=== PATIENT | male | born 1965 | race Caucasian/White ===

== ENCOUNTER → 2016-11-16 | Outpatient (REF) | payer OTHER ==
[~2016-11-16] MED LIST: /GLIP10TAB PO; /HCTZ25TA PO; ACET50TA PO; ALBU17IN INH; AMOX875T PO; ASPI81TA51 PO; CLIN150C PO; CRES5TAB PO; DOCU10ELUD PO; GABA100C PO; GLUC500T PO; GLUCTAB2 PO; INSULANT SC; ISOS10TA2 PO; LANTINJ4 SC; LIPI20TA PO; LISI-542 PO; LISI5TAB PO; LOPR50TA PO; NEXI40GR PO; PERC7.5T12 PO; PERI12LIQ MT; PROAAER IN; REGL10TA6 PO
[2016-11-16 18:03] LABS: MEAN CORPUSCULAR HEMOGLOBIN 29.2 pg (27.0-33.0); MEAN CORPUSCULAR HGB CONC 35.7 g/dl (32.0-36.5); MEAN CORPUSCULAR VOLUME 81.7 fl (80.0-96.0); RED CELL DISTRIBUTION WIDTH 11.7 % (11.5-14.5); WHITE BLOOD COUNT 7.9 K/mm3 (4.0-10.0)
[2016-11-16 18:39] LABS: CHOLESTEROL LEVEL 202 MG/DL (<200); TRIGLYCERIDES LEVEL 562 MG/DL (<150)
== END | disposition home or self-care (01) ==
LOC: M SFHCCLAY 13:28
PROVIDERS: ATTEND Nurse Practitioner Family
DX: E10.65 Type 1 diabetes mellitus with hyperglycemia (principal); M54.9 Dorsalgia, unspecified; E78.5 Hyperlipidemia, unspecified; E55.9 Vitamin D deficiency, unspecified

== ENCOUNTER 2016-11-22 22:21 | Inpatient (IN) | payer OTHER ==
[~2016-11-22] VITALS: Ht 170.2 cm; Wt 70.0 kg
[2016-11-23 01:23] LABS: BASO # 0.1 K/mm3 (0.0-0.2); BASO % 0.8 % (0.0-1.0); EOS # 0.3 K/mm3 (0.0-0.50); LARGE UNSTAINED CELL # 0.2 K/mm3 (0.0-0.4); LARGE UNSTAINED CELL % 2.4 % (0.0-4.0); LYMPH # 2.7 K/mm3 (1.5-4.5); LYMPH % 30.8 % (24.0-44.0); MEAN CORPUSCULAR HEMOGLOBIN 28.1 pg (27.0-33.0); MEAN CORPUSCULAR HGB CONC 34.5 g/dl (32.0-36.5); MEAN CORPUSCULAR VOLUME 81.6 fl (80.0-96.0); MONO # 0.5 K/mm3 (0.0-0.8); MONO % 5.8 % (0.0-5.0); NEUTROPHILS % 57.2 % (36.0-66.0); PLATELET COUNT, AUTOMATED 209 k/mm3 (150-450); RED CELL DISTRIBUTION WIDTH 11.7 % (11.5-14.5); WHITE BLOOD COUNT 8.8 K/mm3 (4.0-10.0)
[2016-11-23 01:25] LABS: VENOUS BASE EXCESS 0.1 (-2.0-2.0); VENOUS O2 SATURATION 77.7 % (60.0-80.0); VENOUS PARTIAL PRESSURE CO2 39.2 mmHg (38.0-50.0); VENOUS PARTIAL PRESSURE O2 39.1 mmHg (30.0-50.0); VENOUS STANDARD HCO3 24.1 MEQ/L; VENOUS TOTAL CO2 25.7 MEQ/L (24.0-28.0)
[2016-11-23] MEDS ORDERED: HumuLIN R (REGULAR) INSULIN (NovoLIN R) **100U/ML** PER UNIT As Ordered ONE (01:29)
[2016-11-23] MEDS ORDERED: ONDANSETRON 4MG/2ML VIAL (J2405) As Ordered ONE (01:29)
[2016-11-23] MEDS ORDERED: MORPHINE 4 MG/ML 1ML SYRINGE As Ordered ONE ×2 (01:30→02:56)
[2016-11-23 01:36] LABS: ALBUMIN 3.5 GM/DL (3.2-5.2); ALBUMIN/GLOBULIN RATIO 0.71 (1.00-1.93); ALKALINE PHOSPHATASE 79 U/L (45-117); ALT/SGPT 32 U/L (12-78); AMYLASE 130 U/L (25-115); ANION GAP 9 MEQ/L (8-16); AST/SGOT 14 U/L (15-37); BILIRUBIN,DIRECT < 0.1 MG/DL (0.0-0.2); BILIRUBIN,TOTAL 0.3 MG/DL (0.2-1.0); BLOOD UREA NITROGEN 14 MG/DL (7-18); CALCIUM LEVEL 8.9 MG/DL (8.5-10.1); CARBON DIOXIDE LEVEL 26 MEQ/L (21-32); CHLORIDE LEVEL 98 MEQ/L (98-107); CREATININE FOR GFR 1.23 MG/DL (0.70-1.30); GLOMERULAR FILTRATION RATE > 60.0 (>56); SODIUM LEVEL 133 MEQ/L (136-145); TOTAL PROTEIN 8.4 GM/DL (6.4-8.2)
[2016-11-23 01:39] LABS: GLUCOSE, FASTING 456 MG/DL (70-105)
[2016-11-23 01:51] LABS: OSMOLALITY SERUM 306 MOSM/KG (275-295)
[2016-11-23] MEDS ORDERED: ISOVUE-370 76% 100ML VIAL (Q9967) As Ordered ONE (02:10)
--- NOTE | 2016-11-23 03:10 | REPUSA ---
CLINICAL HISTORY: Abdominal pain. TECHNIQUE: Multiple axial, sagittal and coronal CT images were obtained through the abdomen and pelvi s after administration of intravenous contrast material. COMMENTS: Fluid-filled distended stomach. The liver is mildly enlarged with decreased attenuation without mass or defect. There is no intra or extrahepatic biliary ductal dilatation. The spleen is normal. The gallbladder is surgically absent. T he pancreas is of normal contour and attenuation characteristics. There is no evidence of adrenal mas s. Both kidneys demonstrate prompt and equal nephrograms. The kidneys are normal in size, shape and conf iguration. There is no evidence of renal or ureteral mass. No renal or ureteral calculi are identifie d. There is no hydroureter or hydronephrosis. No evidence for appendicitis. There is no bowel wall thickening. No evidence for small or large sophia l obstruction. There is no evidence of abdominal ascites or lymphadenopathy. There is no evidence of intrinsic or extrinsic bladder mass. There is no pelvic ascites or lymphadeno angus. Distended urinary bladder. Images of the lung bases show no evidence of pleural or parenchymal mass. There are no pleural effusi ons. The bony structures are free of lytic or blastic lesions. IMPRESSION: Fluid filled distended stomach suggestive of gastroparesis. Distended urinary bladder suggestive of urinary retention. Findings were not present on the prior exam on 09/17/2016. Thank you for your kind referral of this patient.
[2016-11-23] MEDS: NS 1,000 ML IV SCH ×2 (04:15→21:47)
[2016-11-23] MEDS ORDERED: ONDANSETRON 4MG/2ML VIAL (J2405) IV PRN (04:15)
[2016-11-23] MEDS ORDERED: DEXTROSE 50% 50 ML SYRINGE IV PRN (04:30)
[2016-11-23] MEDS ORDERED: GLUCOSE 4 GM CHEW TABLET PO PRN (04:30)
[2016-11-23] MEDS ORDERED: GLUCAGON FOR INJ 1 MG VIAL (J1610) SC PRN (04:30)
[2016-11-23] MEDS ORDERED: SODIUM CHLORIDE 0.9% 1000 ML IV ONE (04:45)
[2016-11-23] MEDS ORDERED: GABA600T PO (04:56)
[2016-11-23] MEDS ORDERED: INSULANT SC (04:56)
[2016-11-23] MEDS ORDERED: GEMF600T PO (04:56)
[2016-11-23] MEDS ORDERED: OMEP40CA2 PO (04:56)
[2016-11-23] MEDS ORDERED: TRAM50TA2 PO (04:56)
[2016-11-23] MEDS ORDERED: ASPI81TA7 PO (04:56)
[2016-11-23] MEDS ORDERED: LISI10TA4 PO (04:56)
[2016-11-23] MEDS: HumaLOG INSULIN (NovoLOG) PER UNIT SC SCH ×3 (06:00→17:29)
[2016-11-23 06:26] LABS: TRIGLYCERIDES LEVEL 592 MG/DL (<150)
[2016-11-23] MEDS ORDERED: MORPHINE 2 MG/ML 1ML SYRINGE As Ordered ONE ×2 (07:09→09:21)
[2016-11-23] MEDS ORDERED: ALBUTEROL 90 MCG/ACT 8GM HFA INHALER INH PRN (07:45)
--- NOTE | 2016-11-23 07:51 | HPE ---
DATE OF ADMISSION: 11/23/2015 This is a patient of Tatyana Hooper NP at the [facility]. Chief complaint is not feeling well. SUMMARY OF PRESENTATION: This is a 51-year-old who has not been feeling well for 3 days. He developed sharp abdominal pain, nausea and vomiting 3 days ago. Pain originated on the right, but then shifted more to the left upper quadrant. It stayed in front. Does not radiate. It has been helped with tramadol but he has been unable to eat. When he attempts to eat, 5 or 10 minutes later he vomits everything back up. He recently ate out at [employer]. Does not have well water at home. His fingersticks have been quite high. He has an ALLERGY to [employer] and [employer]. Medications at home are listed as: - Lantus - Lipitor - lisinopril - tramadol - albuterol - gabapentin - omeprazole - aspirin - gemfibrozil Past medical history is notable for asthma, diabetes, hypertension, CVAs with right-sided weakness, coronary artery disease, hyperlipidemia, vitamin D deficiency. Surgical history is notable for cholecystectomy, reduction and fixation of the right lower leg as a child, a cyst drained on his kidney in May of 2016. Family history is notable for a mother who is alive at age 74. Father at age 44. Socially, never a smoker. Review of systems is notable for no headache, no visual changes, no runny nose, no sore throat. Denies sick contact. No neck pain. No chest pain. Although, he did complain of chest pain while in the waiting room, but admitted to the emergency room (ER) attending that he only complained of chest pain to get back to the main portion of the emergency department more quickly. No change in bowel or bladder habits. No focal weakness. Denies history of seizure. Otherwise, unremarkable. On physical exam, blood pressure 133/86, pulse 107, respiratory rate 18, temperature 98.3, pulse oximetry 99% on room air. Weighs 78.9 kg with a body mass index of 27.25. He is awake, appropriately interactive, somewhat tired at 4:30 in the morning. Head is normocephalic. Pupils equally round and reactive, anicteric. Nasal septum is midline. Mucous membranes are tacky. Neck is supple. Breathing is symmetrical, rested. Heart is in regular rate and rhythm, is borderline tachycardic with a rate right around 100. Distal pulses at the radius are 2+. Capillary refill is less than 2 seconds. Abdomen notable for hypoactive bowel sounds, mild diffuse tenderness, which appears somewhat worse in the right and left upper quadrants. There is trace bilateral lower extremity edema. He is moving all four extremities. Cranial nerves II-XII are grossly intact. There are labs available for me to review, which include sodium 133, creatinine 1.23, glucose 456. Osmolarity is elevated at 306. Lipase is 1647 with AST 14, ALT 32. White cell count 8.8, hemoglobin 13.9 and platelets of 209. Abdominopelvic CT shows fluid filled distended stomach suggestive of gastroparesis. Distended urinary bladder. My assessment is as follows: This is a 51-year-old with suspected pancreatitis in the setting of hyperosmolar, nonketotic state. Patient will require a two midnight hospital stay for further diagnosis and treatment. Plan is as follows: 1. Gastrointestinal (GI). Patient has suspected pancreatitis. We will check a triglyceride level. Denies alcohol use. No elevation in liver function tests (LFTs). It would appear as though he has had a number of abdominopelvic CTs and this a recurrent problem. We will make him nothing by mouth, and intravenous (IV) fluids and monitor him clinically. 2. Patient has elevated blood glucose and elevated osmolarity, which appear to have hyperosmolar, nonketotic state. We will give IV fluid, continue with insulin. We will give him long-acting insulin and short-acting as needed. 3. Patient has hypertension. We will withhold his angiotensin -converting enzyme (ROGERIO) inhibitor at this point. May need to be restarted of course during his stay. 4. Deep venous thrombosis (DVT) prophylaxis will be ordered. 5. Patient will be signed out to family medicine this morning.
[2016-11-23] MEDS: LEVEMIR (INSULIN DETEMIR) 1 UNITS/0.01ML SC SCH ×2 (09:00→21:46)
[2016-11-23] MEDS ORDERED: LEVEMIR (INSULIN DETEMIR) 1 UNITS/0.01ML As Ordered ONE (09:20)
[2016-11-23] MEDS ORDERED: OMEPRAZOLE 20 MG CAP As Ordered ONE ×2 (09:24→09:51)
[2016-11-23 09:30] VITALS: BP 132/96
[2016-11-23 09:57] LABS: MEAN CORPUSCULAR HEMOGLOBIN 28.9 pg (27.0-33.0); MEAN CORPUSCULAR HGB CONC 35.2 g/dl (32.0-36.5); MEAN CORPUSCULAR VOLUME 82.2 fl (80.0-96.0); RED CELL DISTRIBUTION WIDTH 11.8 % (11.5-14.5)
[2016-11-23] MEDS: MORPHINE 2 MG/ML 1ML SYRINGE IV PRN ×2 (10:16→21:47)
[2016-11-23] MEDS: GABAPENTIN 300 MG CAP PO SCH ×3 (10:17→21:45)
[2016-11-23] MEDS: SENOKOT S TAB PO SCH ×2 (10:17→21:45)
[2016-11-23] MEDS: OMEPRAZOLE 20 MG CAP PO SCH (10:17)
[2016-11-23] MEDS: ASPIRIN 81 MG ENTERIC TAB PO SCH (10:17)
[2016-11-23] MEDS: GEMFIBROZIL 600 MG TAB PO SCH ×2 (10:17→21:45)
[2016-11-23 10:25] LABS: ALBUMIN/GLOBULIN RATIO 0.83 (1.00-1.93); ALKALINE PHOSPHATASE 58 U/L (45-117); ALT/SGPT 23 U/L (12-78); ANION GAP 7 MEQ/L (8-16); AST/SGOT 12 U/L (15-37); BILIRUBIN,TOTAL 0.3 MG/DL (0.2-1.0); BLOOD UREA NITROGEN 12 MG/DL (7-18); CALCIUM LEVEL 8.7 MG/DL (8.5-10.1); CARBON DIOXIDE LEVEL 29 MEQ/L (21-32); CHLORIDE LEVEL 106 MEQ/L (98-107); CREATININE FOR GFR 1.02 MG/DL (0.70-1.30); GLOMERULAR FILTRATION RATE > 60.0 (>56); GLUCOSE, FASTING 273 MG/DL (70-105); POTASSIUM SERUM 4.1 MEQ/L (3.5-5.1); SODIUM LEVEL 142 MEQ/L (136-145); TOTAL PROTEIN 6.6 GM/DL (6.4-8.2)
[2016-11-23] MEDS ORDERED: HumaLOG INSULIN (NovoLOG) PER UNIT SC SCH (12:00)
[2016-11-23] MEDS ORDERED: HumaLOG INSULIN (NovoLOG) PER UNIT As Ordered ONE (12:13)
[2016-11-23 12:35] VITALS: BP 125/86
--- NOTE | 2016-11-23 12:42 | EDDOCDS ---
Nurse's Notes [facility] Name: Anthnoy Love Age: 51 yrs Sex: Male : 1965 Arrival Date: 11/22/2016 Time: 22:21 Bed 21 Private MD: Tatyana Hooper M. Diagnosis: Acute pancreatitis Presentation: 11/22 22:27 Presenting complaint: Patient states: per pt brought here by ambulance states "I'm tm5 sick", pt complains of nausea & vomiting for the past 3 days now, states he isn't able to control his Blood sugar at home states it was over 600 tonight. Adult Sepsis Screening: The patient does not have new or worsening altered mentation. Patient's respiratory rate is less than 22. Systolic blood pressure is greater than 100. Patient has a qSOFA score of 0- Negative Sepsis Screen. Suicide/Homicide risk assessment- the patient denies having any suicidal and/or homicidal ideations and does not present with any other emotional, behavioral or mental health complaints. Status: Patient is not a furniture servicer or dependent. Transition of care: patient was not received from another setting of care. 22:27 Acuity: JOESPH Level 3 tm5 22:27 Method Of Arrival: Ambulance tm5 Triage Assessment: 22:31 General: Appears ill, Behavior is appropriate for age, cooperative. Pain: Location: tm5 epigastric area Pain currently is 5 out of 10 on a pain scale. Quality of pain is described as burning, sharp. Pt Declines HIV testing. Neurological: Level of Consciousness is awake, alert, Oriented to person, place, time. Respiratory: Airway is patent Respiratory effort is even, unlabored, Respiratory pattern is regular, symmetrical. GI: Abdomen is non- distended Reports diarrhea, nausea, vomiting. Derm: Skin is pink, warm & dry. normal. Historical: - Allergies: olives (Anaphylaxis); peanut butter (diarrhea); - Home Meds: 1. Lantus 100 unit/mL Sub-Q soln 50 unit nightly 2. Lipitor 40 mg Oral tab 1 tab once daily 3. lisinopril 10 mg oral tab 4. tramadol 50 mg Oral tab twice a day 5. albuterol sulfate 90 mcg/actuation Inhl HFAA 2 puffs every 4-6 hours 6. gabapentin 600 mg Oral tab 1 tab 3 times per day 7. omeprazole 40 mg Oral cpDR 1 cap once daily 8. aspirin 81 mg Oral tab 1 tab once daily 9. gemfibrozil 600 mg Oral tab 1 tab 2 times per day - PMHx: Diabetes - IDDM: uncontrolled; Hypertension; hyperlipidemia; Pancreatitis; - PSHx: none; - Social history: Smoking status: Patient states was never smoker of tobacco. No barriers to communication noted. - : The pt / caregiver states he / she is not on anticoagulants. Home medication list is obtained from the patient. - Exposure Risk Screening:: None identified. Screenin:36 Screening information is obtained from the patient. Fall risk: No risks identified. tm5 Assistance ADL's: requires no assistance with activities of daily living. Abuse/DV Screen: The patient / caregiver reports he/she is: not in a situation that causes fear, pain or injury. Nutritional screening: No deficits noted. Advance Directives: Currently, there is a health care proxy, Emeli. home support is adequate. Assessment: 11/23 00:25 General: Appears ill. Pain: Location: mid-sternal area Pain currently is 10 out of 10 nn1 on a pain scale. Quality of pain is described as stabbing, "someones taking a sledgehammer to my chest" Aggravated by vomiting/burping. Neurological: Level of Consciousness is awake, alert. Respiratory: Airway is patent Respiratory effort is even, unlabored, Respiratory pattern is regular. GI: Abdomen is Pt is actively vomiting bile, Bowel sounds present X 4 quads. Reports diarrhea, gaseousness, vomiting. Derm: Skin is jaundiced. 00:50 General: Appears uncomfortable, well nourished, well groomed, Behavior is appropriate kas2 for age, cooperative. Pain: Location: chest and mid-sternal area and abdomen and epigastric area Pain currently is 10 out of 10 on a pain scale. Pain does not radiate. Neurological: Level of Consciousness is awake, alert, Oriented to person, place, time. Cardiovascular: Capillary refill < 3 seconds Heart tones S1 S2 present Rhythm is sinus tachycardia No ectopy. Chest pain is described as severe, quality is stabbing, is located in epigastric area radiates Does not radiate. Respiratory: Airway is patent Respiratory effort is even, unlabored, Respiratory pattern is regular, symmetrical, Breath sounds are clear bilaterally. GI: Abdomen is non- distended Bowel sounds present X 4 quads. Abd is soft and non tender X 4 quads. Reports diarrhea, nausea, vomiting. Derm: Skin is intact, Skin is dry, Skin is pink, warm & dry. Skin temperature is warm. 01:10 General: Appears in no apparent distress, uncomfortable, Behavior is appropriate for cf2 age, cooperative. Pain: Location: chest and mid-sternal area and abdomen and epigastric area Pain currently is 9 out of 10 on a pain scale. Neurological: Level of Consciousness is awake, alert, Oriented to person, place, time. Cardiovascular: Rhythm is sinus tachycardia No ectopy. Respiratory: Airway is patent Respiratory effort is even, unlabored, Respiratory pattern is regular, symmetrical. Derm: Skin is intact, Skin is dry, Skin is pink, warm & dry. Skin temperature is warm. 02:00 General: Patient gone to CT scan via stretcher with tech.. kas2 02:15 General: Patient back from CT scan via stretcher with RN. Resettled in bed. No apparent [facility] distress. States pain is 8/10 in abdomen. Call jha within reach. Will continue to monitor.. 03:31 General: Appears in no apparent distress, to be sleeping. Behavior is appropriate for kas2 age, cooperative. Pain: Location: chest and mid-sternal area and abdomen and epigastric area Pain currently is 5 out of 10 on a pain scale. Neurological: Level of Consciousness is awake, alert, Oriented to person, place, time. Cardiovascular: Rhythm is sinus tachycardia No ectopy. Respiratory: Airway is patent Respiratory effort is even, unlabored, Respiratory pattern is regular, symmetrical. Derm: Skin is intact, Skin is dry, Skin is pink, warm & dry. Skin temperature is warm. 04:45 General: Appears in no apparent distress, to be sleeping. Behavior is appropriate for kas2 age, cooperative. Pain: Denies pain. Neurological:. Cardiovascular: Rhythm is sinus tachycardia No ectopy. Respiratory: Airway is patent Respiratory effort is even, unlabored, Respiratory pattern is regular, symmetrical. Derm: Skin is intact, Skin is dry, Skin is pink, warm & dry. Skin temperature is warm. 05:38 General: Appears in no apparent distress, to be sleeping. Cardiovascular: Rhythm is kas2 sinus tachycardia No ectopy. Respiratory: Airway is patent Respiratory effort is even, unlabored, Respiratory pattern is regular, symmetrical. Derm: Skin is intact, Skin is dry, Skin is pink, warm & dry. Skin temperature is warm. 06:21 General: Appears in no apparent distress, comfortable, Behavior is appropriate for age, kas2 cooperative. Pain: Denies pain. Neurological: Level of Consciousness is awake, alert, Oriented to person, place, time. Cardiovascular: Rhythm is sinus rhythm No ectopy. Respiratory: Airway is patent Respiratory effort is even, unlabored, Respiratory pattern is regular, symmetrical. Derm: Skin is intact, Skin is dry, Skin is pink, warm & dry. Skin temperature is warm. 07:14 General: Appears in no apparent distress, comfortable, Behavior is appropriate for age. jjr Pain: Location: left breast and right upper quadrant Pain currently is 9 out of 10 on a pain scale. Quality of pain is described as pressure to left anterior chest and sharp pain to RUQ. Neurological: No deficits noted. Cardiovascular: Rhythm is sinus rhythm Chest pain is described as Pain is 9 out of 10 on a pain scale. quality is pressure, is located in left anterior chest wall. Respiratory: Airway is patent Respiratory effort is even, unlabored, Respiratory pattern is regular. GI: Abdomen is non- distended Bowel sounds hypoactive in right upper quadrant, left upper quadrant, right lower quadrant and left lower quadrant Abd is soft X 4 quads Guarding noted X 4 quads. Reports epigastric pain, upper abdominal pain. Derm: No deficits noted. 08:47 General: Appears to be sleeping. r Vital Signs: 11/22 22:24 BP 154 / 103; Pulse 116; Resp 18 S; Temp 98.8(O); Pulse Ox 98% on R/A; Weight 78.93 kg gr2 (R); Height 5 ft. 7 in. (170.18 cm) (R); Pain /10; 11/23 00:23 BP 133 / 87; Pulse 120; Resp 18; Temp 98.3; Pulse Ox 98% on R/A; Pain 10; nn1 00:32 BP 164 / 95 (auto/); cf2 00:35 Pulse 108 MON; Pulse Ox 99% ; cf2 01:02 BP 139 / 87 (auto/); cf2 01:02 Pulse 100 MON; Pulse Ox 94% ; cf2 01:17 BP 143 / 89 (auto/); cf2 01:17 Pulse 102 MON; Pulse Ox 95% ; cf2 01:32 BP 145 / 93 (auto/); cf2 01:32 Pulse 104 MON; Pulse Ox 98% ; cf2 01:47 BP 131 / 84 (auto/); cf2 01:47 Pulse 106 MON; Pulse Ox 95% ; cf2 02:02 BP 133 / 86 (auto/); kas2 02:02 Pulse 110 MON; Pulse Ox 96% ; kas2 02:53 BP 133 / 86; Pulse 107; Resp 18; Pulse Ox 99% ; Pain 10/10; kas2 03:05 BP 131 / 84; Pulse 98; Resp 20; Pulse Ox 99% on R/A; kas2 03:15 BP 132 / 85; Pulse 99; Pain 9/10; kas2 03:50 BP 128 / 82; Pulse 98; Resp 18; Temp 97.2(O); Pulse Ox 95% on R/A; kas2 05:17 BP 133 / 90 (auto/); kas2 05:17 Pulse 94 MON; Pulse Ox 96% ; kas2 06:21 BP 135 / 95 (auto/); kas2 06:21 Pulse 94 MON; Pulse Ox 97% ; kas2 06:24 Resp 20; Temp 97.9(O); kas2 07:13 Pulse 92 MON; Resp 18; Pulse Ox 96% on R/A; jjr 07:42 BP 127 / 81 (auto/); jjr 07:42 Pulse 94 MON; Resp 18; Pulse Ox 94% on R/A; jjr 11/22 22:24 Body Mass Index 27.25 (78.93 kg, 170.18 cm) gr2 Vitals: 11/22 22:24 Log In Time: November 22, 2016 at 22:24. gr2 ED Course: 22:22 Patient visited by Adelia Cueva. gr2 22:22 Patient moved to Waiting gr2 22:23 Tatyana Hooper is Private Physician. gr2 22:26 Patient visited by Adelia Cueva. gr2 22:26 Patient moved to Pre RCE gr2 22:29 Triage Initiated tm5 11/23 00:30 Ela Oakley,RN is Primary Nurse. sls1 00:30 Stephani Henderson,RN is Primary Nurse. sls1 00:30 Patient moved to 4 sls1 00:43 EKG done. (by ED staff). Reviewed by Rohith Clements DO. jmv 00:44 Patient visited by Mendez Macario PCA. jmv 01:00 Patient visited by Stephani Henderson RN. kas2 01:00 compliance monitor on. Pulse ox on. NIBP on. kas2 01:00 Inserted saline lock: 20 gauge in right antecubital area and blood collected. The kas2 patient tolerated the procedure well. No procedures done that require assistance. 01:08 Rohith Clements DO is Attending Physician. mm11 01:08 Patient visited by Rohith Clements DO. mm11 01:13 Patient visited by Rohith Clements DO. mm11 01:40 Notified attending ED physician of Critical lab value. BG FS 456. tm5 01:41 Patient visited by Stephani Henderson RN. kas2 01:51 Patient visited by Angélica Blankenship RN. cf2 02:56 Patient visited by Stephani Henderson RN. kas2 03:01 Patient name changed from Anthony\\S\\\\S\\Kate\\S\\ to Anthony\\S\\ \\S\\Kate. EDMS 03:02 [facility] Payment Agreement was scanned into [employer] and attached to record. [facility] 03:19 CT ABD & PELVIS: IV Contrast Only Returned. EDMS 03:32 Patient visited by Stephani Henderson RN. kas2 03:38 Tonio Betancourt MD is Hospitalizing Provider. mm11 05:16 Patient visited by Stephani Henderson RN. kas2 05:40 Patient visited by Stephani Henderson RN. kas2 06:11 Patient visited by Stephani Henderson RN. kas2 06:22 Patient visited by Stephani Henderson RN. kas2 06:24 Patient visited by Stephani Henderson RN. kas2 06:29 Patient moved to Admit Hold tmm1 07:00 Primary Nurse role handed off by Stephani Henderson RN kas2 07:16 Patient visited by Jerri Cueva, KITTY. jjr 07:41 Jerri Cueva, RN is Primary Nurse. jjr 07:41 Primary Nurse role handed off by Ela Oakley,KITTY jjr 08:48 Patient visited by Jerri Cueva, KITTY. jjr 08:59 Patient moved to 21 jjr 09:14 T-Sheet-- Draft Copy was scanned into [employer] and attached to record. gb Administered Medications: 01:37 Drug: Ondansetron 4 mg [ondansetron HCl 2 mg/mL intravenous solution (2 mL)] Route: kas2 IVP; Site: right forearm; 01:39 Drug: morphine 4 mg [morphine 4 mg/mL intravenous cartridge (1 mL)] Route: IVP; Site: [facility] right forearm; 02:53 Follow up: BP 133 / 86; Pulse 107 bpm; Resp 18 bpm; Pulse Ox 99% ; Pain 10/10 Adult; kas2 Response: No Adverse Reaction; No significant change. 01:52 Drug: Insulin Regular Human 5 units [insulin regular human 100 unit/mL injection [facility] solution (0.05 mL)] {Co-Signature: cf2 (Angélica Blankenship RN).} Route: IVP; Site: right forearm; 02:59 Drug: morphine 4 mg [morphine 4 mg/mL intravenous cartridge (1 mL)] Route: IVP; Site: [facility] right forearm; 03:15 Follow up: BP 132 / 85; Pulse 99 bpm; Pain 9/10 Adult kas2 03:15 Follow up: Response: No Adverse Reaction; Pain is decreased kas2 07:13 Drug: morphine 2 mg [morphine 2 mg/mL intravenous cartridge (1 mL)] Route: IVP; Site: [facility] right forearm; 07:43 Follow up: Response: No significant change. [facility] Point of Care Testing: Blood Glucose: 11/22 22:36 Blood Glucose: 510 mg/dL; tm5 11/23 00:23 Blood Glucose: 459 mg/dL; nn1 02:53 Blood Glucose: 328 mg/dL; kas2 Ranges: Output: 07:14 Urine: 525.00ml (Voided); Total: 525.00ml. [facility] Order Results: Lab Order: Fingerstick Blood Sugar; SPEC'M 11/22/16 22:35 Test: BEDSIDE GLUCOSE; Value: 510; Range: 70-105; Abnormal: Above upper panic limits; Units: MG/DL; Status: F Test Note: ; Doctor Notified Lab Order: Fingerstick Blood Sugar; SPEC'M 11/23/16 00:23 Test: BEDSIDE GLUCOSE; Value: 459; Range: 70-105; Abnormal: Above high normal; Units: MG/DL; Status: F Lab Order: Basic Metabolic Profile; SPEC'M 11/23/16 00:43 Test: GLUCOSE, FASTING; Value: 456; Range: 70-105; Abnormal: Above upper panic limits; Units: MG/DL; Status: F Test: BLOOD UREA NITROGEN; Value: 14; Range: 7-18; Units: MG/DL; Status: F Test: CREATININE FOR GFR; Value: 1.23; Range: 0.70-1.30; Units: MG/DL; Status: F Test: GLOMERULAR FILTRATION RATE; Value: > 60.0; Range: >56; Status: F Test: SODIUM LEVEL; Value: 133; Range: 136-145; Abnormal: Below low normal; Units: MEQ/L; Status: F Test: POTASSIUM SERUM; Value: 4.0; Range: 3.5-5.1; Units: MEQ/L; Status: F Test: CHLORIDE LEVEL; Value: 98; Range: 98-107; Units: MEQ/L; Status: F Test: CARBON DIOXIDE LEVEL; Value: 26; Range: 21-32; Units: MEQ/L; Status: F Test: ANION GAP; Value: 9; Range: 8-16; Units: MEQ/L; Status: F Test: CALCIUM LEVEL; Value: 8.9; Range: 8.5-10.1; Units: MG/DL; Status: F Test Note: ; Units are mL/min/1.73 m2 Chronic Kidney Disease Staging per NKF: Stage I & II GFR >=60 Normal to Mildly Decreased Stage III GFR 30-59 Moderately Decreased Stage IV GFR 15-29 Severely Decreased Stage V GFR <15 Very Little GFR Left ESRD GFR <15 on [employer] Lab Order: CBC with Diff; SPEC'M 11/23/16 00:43 Test: WHITE BLOOD COUNT; Value: 8.8; Range: 4.0-10.0; Units: K/mm3; Status: F Test: RED BLOOD COUNT; Value: 4.95; Range: 4.30-6.10; Units: M/mm3; Status: F Test: HEMOGLOBIN; Value: 13.9; Range: 14.0-18.0; Abnormal: Below low normal; Units: g/dl; Status: F Test: HEMATOCRIT; Value: 40.4; Range: 42.0-52.0; Abnormal: Below low normal; Units: %; Status: F Test: MEAN CORPUSCULAR VOLUME; Value: 81.6; Range: 80.0-96.0; Units: fl; Status: F Test: MEAN CORPUSCULAR HEMOGLOBIN; Value: 28.1; Range: 27.0-33.0; Units: pg; Status: F Test: MEAN CORPUSCULAR HGB CONC; Value: 34.5; Range: 32.0-36.5; Units: g/dl; Status: F Test: RED CELL DISTRIBUTION WIDTH; Value: 11.7; Range: 11.5-14.5; Units: %; Status: F Test: PLATELET COUNT, AUTOMATED; Value: 209; Range: 150-450; Units: k/mm3; Status: F Test: NEUTROPHILS %; Value: 57.2; Range: 36.0-66.0; Units: %; Status: F Test: LYMPH %; Value: 30.8; Range: 24.0-44.0; Units: %; Status: F Test: MONO %; Value: 5.8; Range: 0.0-5.0; Abnormal: Above high normal; Units: %; Status: F Test: EOS %; Value: 3.0; Range: 0.0-3.0; Units: %; Status: F Test: BASO %; Value: 0.8; Range: 0.0-1.0; Units: %; Status: F Test: LARGE UNSTAINED CELL %; Value: 2.4; Range: 0.0-4.0; Units: %; Status: F Test: NEUTROPHILS #; Value: 5.0; Range: 1.8-7.7; Units: K/mm3; Status: F Test: LYMPH #; Value: 2.7; Range: 1.5-4.5; Units: K/mm3; Status: F Test: MONO #; Value: 0.5; Range: 0.0-0.8; Units: K/mm3; Status: F Test: EOS #; Value: 0.3; Range: 0.0-0.50; Units: K/mm3; Status: F Test: BASO #; Value: 0.1; Range: 0.0-0.2; Units: K/mm3; Status: F Test: LARGE UNSTAINED CELL #; Value: 0.2; Range: 0.0-0.4; Units: K/mm3; Status: F Lab Order: Cardiac Injury Profile; [facility] 11/23/16 00:43 Test: CPK CREATINE PHOSPHOKINASE; Value: 130; Range: 39-308; Units: U/L; Status: F Test: CK-MB VALUE MASS; Value: 2.3; Range: 0.0-3.6; Units: NG/ML; Status: F Test: MB/CK RELATIVE INDEX; Value: 1.76; Range: < OR =4; Status: F Test Note: ; DIAGNOSIS CRITERIA MMB ng/ml Relative Index (RI) NON-AMI < or = 5 N/A AVILES ZONE > 5 < or = 4 AMI > 5 > 4 Lab Order: Troponin; [facility] 11/23/16:43 Test: TROPONIN I; Value: < 0.02; Range: < 0.10; Units: NG/ML; Status: F Test Note: ; Troponin I Reference Interval for [employer] LOCI: 99th Percentile= 0.00-0.045 ng/ml Risk Stratification: <= 0.10 ng/ml Decreased Risk for Adverse Clinical Events. 0.10-1.50 ng/ml Increased Risk for Adverse Clinical Events. Evaluation of additional criterion and/or repeat testing in 2-6 hours is suggested to rule out myocardial damage. >= 1.50 ng/ml Indicative of Myocardial Injury. Lab Order: Amylase; [facility]' 11/23/16 00:43 Test: AMYLASE; Value: 130; Range: 25-115; Abnormal: Above high normal; Units: U/L; Status: F Lab Order: Lipase; [facility] 11/23/16 00:43 Test: LIPASE; Value: 1647; Range: 73-393; Abnormal: Above high normal; Units: U/L; Status: F Lab Order: Liver Profile; [facility] 11/23/16 00:43 Test: AST/SGOT; Value: 14; Range: 15-37; Abnormal: Below low normal; Units: U/L; Status: F Test: ALT/SGPT; Value: 32; Range: 12-78; Units: U/L; Status: F Test: ALKALINE PHOSPHATASE; Value: 79; Range: 45-117; Units: U/L; Status: F Test: BILIRUBIN,TOTAL; Value: 0.3; Range: 0.2-1.0; Units: MG/DL; Status: F Test: BILIRUBIN,DIRECT; Value: < 0.1; Range: 0.0-0.2; Units: MG/DL; Status: F Test: TOTAL PROTEIN; Value: 8.4; Range: 6.4-8.2; Abnormal: Above high normal; Units: GM/DL; Status: F Test: ALBUMIN; Value: 3.5; Range: 3.2-5.2; Units: GM/DL; Status: F Test: ALBUMIN/GLOBULIN RATIO; Value: 0.71; Range: 1.00-1.93; Abnormal: Below low normal; Status: F Lab Order: Venous Blood Gas (large pea green tube on ice); SPEC' 11/23/16 00:43 Test: VENOUS PH; Value: 7.414; Range: 7.330-7.430; Units: UNITS; Status: F Test: VENOUS PARTIAL PRESSURE CO2; Value: 39.2; Range: 38.0-50.0; Units: mmHg; Status: F Test: VENOUS PARTIAL PRESSURE O2; Value: 39.1; Range: 30.0-50.0; Units: mmHg; Status: F Test: VENOUS TOTAL CO2; Value: 25.7; Range: 24.0-28.0; Units: MEQ/L; Status: F Test: VENOUS HCO3; Value: 24.5; Range: 23.0-27.0; Units: MEQ/L; Status: F Test: VENOUS BASE EXCESS; Value: 0.1; Range: -2.0-2.0; Status: F Test: VENOUS STANDARD HCO3; Value: 24.1; Units: MEQ/L; Status: F Test: VENOUS O2 SATURATION; Value: 77.7; Range: 60.0-80.0; Units: %; Status: F Lab Order: Osmolality, Serum; SPEC11/23/16 00:43 Test: OSMOLALITY SERUM; Value: 306; Range: 275-295; Abnormal: Above high normal; Units: MOSM/KG; Status: F Lab Order: Fingerstick Blood Sugar; SPEC11/23/16 02:52 Test: BEDSIDE GLUCOSE; Value: 328; Range: 70-105; Abnormal: Above high normal; Units: MG/DL; Status: F Lab Order: TRIGLYCERIDES LEVEL; SPEC'M 11/23/16 00:43 Test: TRIGLYCERIDES LEVEL; Value: 592; Range: <150; Abnormal: Above high normal; Units: MG/DL; Status: F Lab Order: COMPLETE COMPHRENSIVE METABOLI; SPEC'M 11/23/16 09:46 Test: GLUCOSE, FASTING; Value: 273; Range: 70-105; Abnormal: Above high normal; Units: MG/DL; Status: F Test: BLOOD UREA NITROGEN; Value: 12; Range: 7-18; Units: MG/DL; Status: F Test: CREATININE FOR GFR; Value: 1.02; Range: 0.70-1.30; Units: MG/DL; Status: F Test: GLOMERULAR FILTRATION RATE; Value: > 60.0; Range: >56; Status: F Test: SODIUM LEVEL; Value: 142; Range: 136-145; Abnormal: Delta; Units: MEQ/L; Status: F Test: POTASSIUM SERUM; Value: 4.1; Range: 3.5-5.1; Units: MEQ/L; Status: F Test: CHLORIDE LEVEL; Value: 106; Range: 98-107; Units: MEQ/L; Status: F Test: CARBON DIOXIDE LEVEL; Value: 29; Range: 21-32; Units: MEQ/L; Status: F Test: ANION GAP; Value: 7; Range: 8-16; Abnormal: Below low normal; Units: MEQ/L; Status: F Test: CALCIUM LEVEL; Value: 8.7; Range: 8.5-10.1; Units: MG/DL; Status: F Test: AST/SGOT; Value: 12; Range: 15-37; Abnormal: Below low normal; Units: U/L; Status: F Test: ALT/SGPT; Value: 23; Range: 12-78; Units: U/L; Status: F Test: ALKALINE PHOSPHATASE; Value: 58; Range: 45-117; Units: U/L; Status: F Test: BILIRUBIN,TOTAL; Value: 0.3; Range: 0.2-1.0; Units: MG/DL; Status: F Test: TOTAL PROTEIN; Value: 6.6; Range: 6.4-8.2; Abnormal: Delta; Units: GM/DL; Status: F Test: ALBUMIN; Value: 3.0; Range: 3.2-5.2; Abnormal: Below low normal; Units: GM/DL; Status: F Test: ALBUMIN/GLOBULIN RATIO; Value: 0.83; Range: 1.00-1.93; Abnormal: Below low normal; Status: F Test Note: ; Units are mL/min/1.73 m2 Chronic Kidney Disease Staging per NKF: Stage I & II GFR >=60 Normal to Mildly Decreased Stage III GFR 30-59 Moderately Decreased Stage IV GFR 15-29 Severely Decreased Stage V GFR <15 Very Little GFR Left ESRD GFR <15 on [employer] Lab Order: COMPLETE BLOOD COUNT; SPEC11/23/16 09:46 Test: WHITE BLOOD COUNT; Value: 7.0; Range: 4.0-10.0; Units: K/mm3; Status: F Test: RED BLOOD COUNT; Value: 4.35; Range: 4.30-6.10; Units: M/mm3; Status: F Test: HEMOGLOBIN; Value: 12.6; Range: 14.0-18.0; Abnormal: Below low normal; Units: g/dl; Status: F Test: HEMATOCRIT; Value: 35.8; Range: 42.0-52.0; Abnormal: Below low normal; Units: %; Status: F Test: MEAN CORPUSCULAR VOLUME; Value: 82.2; Range: 80.0-96.0; Units: fl; Status: F Test: MEAN CORPUSCULAR HEMOGLOBIN; Value: 28.9; Range: 27.0-33.0; Units: pg; Status: F Test: MEAN CORPUSCULAR HGB CONC; Value: 35.2; Range: 32.0-36.5; Units: g/dl; Status: F Test: RED CELL DISTRIBUTION WIDTH; Value: 11.8; Range: 11.5-14.5; Units: %; Status: F Test: PLATELET COUNT, AUTOMATED; Value: 175; Range: 150-450; Units: k/mm3; Status: F Lab Order: LIPASE; SPEC11/23/16 09:46 Test: LIPASE; Value: 358; Range: 73-393; Units: U/L; Status: F Lab Order: Fingerstick Blood Sugar; SPECM 11/23/16 11:55 Test: BEDSIDE GLUCOSE; Value: 233; Range: 70-105; Abnormal: Above high normal; Units: MG/DL; Status: F Radiology Order: CT ABD & PELVIS: IV Contrast Only Test: CT ABD & PELVIS: IV Contrast Only REASON FOR EXAMINATION: Abdomen Pain; ; CLINICAL HISTORY: Abdominal pain.; TECHNIQUE: Multiple axial, sagittal and coronal CT images were obtained through the abdomen and pelvi; s after administration of intravenous contrast material.; COMMENTS:; Fluid-filled distended stomach.; The liver is mildly enlarged with decreased attenuation without mass or defect. There is no intra or; extrahepatic biliary ductal dilatation. The spleen is normal. The gallbladder is surgically absent. T; he pancreas is of normal contour and attenuation characteristics. There is no evidence of adrenal mas; s.; Both kidneys demonstrate prompt and equal nephrograms. The kidneys are normal in size, shape and conf; iguration. There is no evidence of renal or ureteral mass. No renal or ureteral calculi are identifie; d. There is no hydroureter or hydronephrosis.; No evidence for appendicitis. There is no bowel wall thickening. No evidence for small or large sophia; l obstruction. There is no evidence of abdominal ascites or lymphadenopathy.; There is no evidence of intrinsic or extrinsic bladder mass. There is no pelvic ascites or lymphadeno; angus. Distended urinary bladder.; Images of the lung bases show no evidence of pleural or parenchymal mass. There are no pleural effusi; ons.; The bony structures are free of lytic or blastic lesions.; IMPRESSION:; Fluid filled distended stomach suggestive of gastroparesis.; Distended urinary bladder suggestive of urinary retention.; Findings were not present on the prior exam on 09/17/2016.; Thank you for your kind referral of this patient.; ; Outcome: 03:38 Decision to Hospitalize by Provider. mm11 12:41 Patient left the ED. clare Signatures: Dispatcher [employer] EDMS Margarita Joshi, Rohith Judd DO DO mm11 Jerri Cueva RN RN Lexy Neumann RN RN sls1 Nikia Sumner, NURSE TRANSITION NURSE TRANSITION tmm1 Adelia Cueva gr2 LindsayNeri, NURSE TRANSITION NURSE TRANSITION jrd Faith Maurer NikkoleRN RN nn1 Stephani Henderson RN RN [facility]2 Angélica Blankenship RN RN cf2 Mendez Macario, NURSE TRANSITION NURSE TRANSITION jmv Angely Pollock,KITTY RN tm5 Angélica Blankenship RN cf2 Corrections: (The following items were deleted from the chart) 01:50 01:39 General: Appears [place] [id number] MTDD
--- NOTE | 2016-11-23 12:42 | EDDOCDS ---
Physician Documentation [facility] Name: Anthony Love Age: 51 yrs Sex: Male : 1965 Arrival Date: 11/22/2016 Time: 22:21 Bed 21 Private MD: Tatyana Hooper M. Disposition: 11/23/16 03:38 Hospitalization ordered by Tonio Betancourt for Inpatient Admission. Preliminary diagnosis is Acute pancreatitis. - Bed requested for 4 [place]. - Status is Inpatient Admission. jrd - Condition is Stable. - Problem is an acute exacerbation. - Symptoms have improved. Historical: - Allergies: olives (Anaphylaxis); peanut butter (diarrhea); - Home Meds: 1. Lantus 100 unit/mL Sub-Q soln 50 unit nightly 2. Lipitor 40 mg Oral tab 1 tab once daily 3. lisinopril 10 mg oral tab 4. tramadol 50 mg Oral tab twice a day 5. albuterol sulfate 90 mcg/actuation Inhl HFAA 2 puffs every 4-6 hours 6. gabapentin 600 mg Oral tab 1 tab 3 times per day 7. omeprazole 40 mg Oral cpDR 1 cap once daily 8. aspirin 81 mg Oral tab 1 tab once daily 9. gemfibrozil 600 mg Oral tab 1 tab 2 times per day - PMHx: Diabetes - IDDM: uncontrolled; Hypertension; hyperlipidemia; Pancreatitis; - PSHx: none; - Social history: Smoking status: Patient states was never smoker of tobacco. No barriers to communication noted. - : The pt / caregiver states he / she is not on anticoagulants. Home medication list is obtained from the patient. - Exposure Risk Screening:: None identified. Vital Signs: 11/22 22:24 BP 154 / 103; Pulse 116; Resp 18 S; Temp 98.8(O); Pulse Ox 98% on R/A; Weight 78.93 kg gr2 / 174.01 lbs (R); Height 5 ft. 7 in. (170.18 cm) (R); Pain 5/10; 11/23 00:23 BP 133 / 87; Pulse 120; Resp 18; Temp 98.3; Pulse Ox 98% on R/A; Pain 10/10; nn1 00:32 BP 164 / 95 (auto/); cf2 00:35 Pulse 108 MON; Pulse Ox 99% ; cf2 01:02 BP 139 / 87 (auto/); cf2 01:02 Pulse 100 MON; Pulse Ox 94% ; cf2 01:17 BP 143 / 89 (auto/); cf2 01:17 Pulse 102 MON; Pulse Ox 95% ; cf2 01:32 BP 145 / 93 (auto/); cf2 01:32 Pulse 104 MON; Pulse Ox 98% ; cf2 01:47 BP 131 / 84 (auto/); cf2 01:47 Pulse 106 MON; Pulse Ox 95% ; cf2 02:02 BP 133 / 86 (auto/); kas2 02:02 Pulse 110 MON; Pulse Ox 96% ; kas2 02:53 BP 133 / 86; Pulse 107; Resp 18; Pulse Ox 99% ; Pain 10/10; kas2 03:05 BP 131 / 84; Pulse 98; Resp 20; Pulse Ox 99% on R/A; kas2 03:15 BP 132 / 85; Pulse 99; Pain 9/10; kas2 03:50 BP 128 / 82; Pulse 98; Resp 18; Temp 97.2(O); Pulse Ox 95% on R/A; kas2 05:17 BP 133 / 90 (auto/); kas2 05:17 Pulse 94 MON; Pulse Ox 96% ; kas2 06:21 BP 135 / 95 (auto/); kas2 06:21 Pulse 94 MON; Pulse Ox 97% ; kas2 06:24 Resp 20; Temp 97.9(O); kas2 07:13 Pulse 92 MON; Resp 18; Pulse Ox 96% on R/A; jjr 07:42 BP 127 / 81 (auto/); jjr 07:42 Pulse 94 MON; Resp 18; Pulse Ox 94% on R/A; jjr 11/22 22:24 Body Mass Index 27.25 (78.93 kg, 170.18 cm) gr2 MDM: 11/22 22:43 Fingerstick Blood Sugar Ordered. EDMS 11/23 00:32 ECG WITH READING ER PHYS+CARDIAG ordered. EDMS 00:35 Fingerstick Blood Sugar Ordered. EDMS 01:14 Ondansetron 4 mg IVP once ordered. mm11 01:14 Implement Mechanic/Pulse Ox/q 30 min VS ordered. mm11 01:14 IV Saline Lock ordered. mm11 01:14 Rhythm Strip to chart ordered. mm11 01:14 Undress patient appropriately for examination ordered. mm11 01:14 morphine 4 mg IVP every 30 minutes; Document pain score/vitals after each dose (Hold if mm11 SBP < 90mmHg) x2 ordered. 01:15 Basic Metabolic Profile Ordered. EDMS 01:15 CBC with Diff Ordered. EDMS 01:15 Cardiac Injury Profile Ordered. EDMS 01:15 Troponin Ordered. EDMS 01:15 Amylase Ordered. EDMS 01:15 Lipase Ordered. EDMS 01:15 Liver Profile Ordered. EDMS 01:15 Venous Blood Gas (large pea green tube on ice) Ordered. EDMS 01:15 Osmolality, Serum Ordered. EDMS 01:15 NOTHING BY MOUTH+DIET ordered. EDMS 01:24 Insulin Regular Human 5 units IVP once ordered. mm11 01:33 Financial registration complete. slh 01:44 Fingerstick Blood Sugar Reviewed. mm11 01:44 Fingerstick Blood Sugar Reviewed. mm11 01:44 Basic Metabolic Profile Reviewed. mm11 01:44 CBC with Diff Reviewed. mm11 01:44 Amylase Reviewed. mm11 01:44 Lipase Reviewed. mm11 01:44 Liver Profile Reviewed. mm11 01:44 Cardiac Injury Profile Reviewed. mm11 01:44 Troponin Reviewed. mm11 01:44 Venous Blood Gas (large pea green tube on ice) Reviewed. mm11 02:00 Basic Metabolic Profile Reviewed. mm11 02:00 Amylase Reviewed. mm11 02:00 Lipase Reviewed. mm11 02:00 Liver Profile Reviewed. mm11 02:00 Osmolality, Serum Reviewed. mm11 02:00 Cardiac Injury Profile Reviewed. mm11 02:00 Troponin Reviewed. mm11 02:07 Accucheck hourly ordered. mm11 02:08 CT ABD & PELVIS: IV Contrast Only Ordered. EDMS 03:02 [place] Payment Agreement was scanned into [employer] and attached to record. slh 03:08 Fingerstick Blood Sugar Ordered. EDMS 03:14 Fingerstick Blood Sugar Reviewed. mm11 04:13 CT ABD & PELVIS: IV Contrast Only Reviewed. mm11 04:19 Admission / Observation Status ordered. EDMS 04:19 NPO DIET ordered. EDMS 04:32 TRIGLYCERIDES LEVEL Ordered. EDMS 07:13 morphine 2 mg IVP once ordered. jjr 07:40 COMPLETE COMPHRENSIVE METABOLI Ordered. EDMS 07:40 COMPLETE BLOOD COUNT Ordered. EDMS 07:40 LIPASE Ordered. EDMS 07:40 BASIC METABOLIC PROFILE Ordered. EDMS 09:14 T-Sheet-- Draft Copy was scanned into [employer] and attached to record. 12:05 Fingerstick Blood Sugar Ordered. EDDC Point of Care Testing: Blood Glucose: 11/22 22:36 Blood Glucose: 510 mg/dL; tm5 11/23 00:23 Blood Glucose: 459 mg/dL; nn1 02:53 Blood Glucose: 328 mg/dL; kas2 Ranges: Administered Medications: 01:37 Drug: Ondansetron 4 mg [ondansetron HCl 2 mg/mL intravenous solution (2 mL)] Route: kas2 IVP; Site: right forearm; 01:39 Drug: morphine 4 mg [morphine 4 mg/mL intravenous cartridge (1 mL)] Route: IVP; Site: kas2 right forearm; 02:53 Follow up: BP 133 / 86; Pulse 107 bpm; Resp 18 bpm; Pulse Ox 99% ; Pain 10/10 Adult; kas2 Response: No Adverse Reaction; No significant change. 01:52 Drug: Insulin Regular Human 5 units [insulin regular human 100 unit/mL injection [facility] solution (0.05 mL)] {Co-Signature: cf2 (Angélica Blankenship RN).} Route: IVP; Site: right forearm; 02:59 Drug: morphine 4 mg [morphine 4 mg/mL intravenous cartridge (1 mL)] Route: IVP; Site: kas2 right forearm; 03:15 Follow up: BP 132 / 85; Pulse 99 bpm; Pain 9/10 Adult [facility]2 03:15 Follow up: Response: No Adverse Reaction; Pain is decreased [facility] 07:13 Drug: morphine 2 mg [morphine 2 mg/mL intravenous cartridge (1 mL)] Route: IVP; Site: jjr right forearm; 07:43 Follow up: Response: No significant change. jjr Signatures: Dispatcher [employer] EDMS Margarita Joshi, Reg Reg Rohith Ann, DO mm11 Jerri Cueva, RN RN jjr Neri Montoya, CARE TRANSITIONS MANAGER CARE TRANSITIONS MANAGER Faith Carcamo Steven, RN RN sa Matice, Tonya, RN RN 5 Stephani Henderson RN [facility]2 Angélica Blankenship RN cf2 The chart was reviewed and I authenticate all verbal orders and agree with the evaluation and treatment provided.Corrections: (The following items were deleted from the chart) 04:32 04:21 TRIGLYCERIDES LEVEL ordered. EDMS EDMS Attachments: 03:02 [facility] Payment Agreement [facility] 09:14 T-Sheet-- Draft Copy gb MTDD
[2016-11-23 14:00] VITALS: BP 123/81
--- NOTE | 2016-11-23 15:31 | IPNPDOC ---
Assessment/Plan Date Seen The patient was seen on 11/23/16. Problems Problems: (1) Acute pancreatitis Status: Chronic Response to Treatment: Improving Problem Text: No on clears. Lipase resolving. LFTs not suggestive of stone. CT abdomen normal. - adv diet tomorrow if cont to improve (2) Uncontrolled type 2 diabetes mellitus with hyperosmolar nonketotic hyperglycemia Status: Acute Problem Text: BS in 500s on arrival with hyperosmolar state, now resolved. - titrate home insulin (3) Hypertriglyceridemia Status: Chronic Problem Text: Gemfibrozil, atorvastatin Plan / VTE VTE Prophylaxis Ordered?: Yes Plan IVF: Continue Diet: Advance Disposition Plan for discharge 11/24/16 if tolerating diet Subjective Review of Systems CC/HPI The patient is a 51-year-old male admitted with a reason for visit of Acute Pancreatitis. Events since last encounter Pain improving. Tolerating clear diet. No nausea or vomiting. Denies fevers, chills, or sweats. No abd pain at rest or with eating. Constitutional: Denies: Chills, Fever, Malaise Skin: Denies: Rash Pulmonary: Denies: Cough, Dyspnea Cardiovascular: Denies: Chest Pain Gastrointestinal: Denies: Abdominal Pain, Constipation, Diarrhea, Nausea, Vomiting Psych: Reports: Mood Normal Other systems 10-pt ROS otherwise negative Objective Physical Examination General Exam: Positive: Alert, Cooperative, No Acute Distress Eye Exam: Positive: Conjunctiva & lids normal, Negative: Sclera icteric Neck Exam: Positive: Supple, Negative: thyromegaly Chest Exam: Positive: Clear to auscultation, Normal air movement, Negative: Rales, Rhonchi, Wheezing Heart Exam: Positive: Normal S1, Normal S2, Rate Normal, Negative: Murmurs, Rubs Abdomen Exam: Positive: Normal bowel sounds, Soft, Tenderness (mild epigastrit ttp) Skin Exam: Positive: Nl turgor and temperature, Negative: Rash Psych Exam: Positive: Mental status NL Vital Signs/I&O Vital Signs Date Time Temp Pulse Resp B/P Pulse Ox O2 Delivery O2 Flow Rate FiO2 11/23/16 14:00 96.3 86 18 123/81 97 Room Air Laboratory Data Labs 24H Laboratory Tests 2 11/22/16 22:35: Bedside Glucose (Misc Panel) 510*H 11/23/16 00:23: Bedside Glucose (Misc Panel) 459H 11/23/16 00:43: Aspartate Amino Transf (AST/SGOT) 14L, Alanine Aminotransferase (ALT/SGPT) 32, Alkaline Phosphatase 79, Total Bilirubin 0.3, Direct Bilirubin < 0.1, Albumin 3.5, Albumin/Globulin Ratio 0.71L, Amylase Level 130H, Anion Gap 9, White Blood Count 8.8, Red Blood Count 4.95, Hemoglobin 13.9L, Hematocrit 40.4L, Mean Corpuscular Volume 81.6, Mean Corpuscular Hemoglobin 28.1, Mean Corpuscular Hemoglobin Concent 34.5, Red Cell Distribution Width 11.7, Platelet Count 209, Neutrophils (%) (Auto) 57.2, Lymphocytes (%) (Auto) 30.8, Monocytes (%) (Auto) 5.8H, Eosinophils (%) (Auto) 3.0, Basophils (%) (Auto) 0.8, Neutrophils # (Auto ) 5.0, Lymphocytes # (Auto) 2.7, Monocytes # (Auto) 0.5, Eosinophils # (Auto) 0.3, Basophils # (Auto) 0.1, Blood Gas Bicarbonate Standard 24.1, Calcium Level 8.9, Creatine Kinase MB 2.3, Creatine Kinase MB Relative Index 1.76, Glomerular Filtration Rate > 60.0, Large Unclassified Cells # 0.2, Large Unclassified Cells % 2.4, Lipase 1647H, Osmolality 306H, Total Creatine Kinase 130, Total Protein 8.4H, Triglycerides Level 592H, Troponin I < 0.02, Venous Blood Base Excess 0.1, Venous Blood pH 7.414, Venous Blood Partial Pressure CO2 39.2, Venous Blood Partial Pressure O2 39.1, Venous Blood Total Carbon Dioxide 25.7, Venous Blood HCO3 24.5, Venous Blood Oxygen Saturation 77.7 11/23/16 02:52: Bedside Glucose (Misc Panel) 328H 11/23/16 09:46: Blood Urea Nitrogen 12, Creatinine 1.02, Sodium Level 142#, Potassium Level 4.1 , Chloride Level 106, Carbon Dioxide Level 29, Calcium Level 8.7, Aspartate Amino Transf (AST/SGOT) 12L, Alanine Aminotransferase (ALT/SGPT) 23, Alkaline Phosphatase 58, Total Bilirubin 0.3, Total Protein 6.6#, Albumin 3.0L, Albumin/ Globulin Ratio 0.83L, Anion Gap 7L, Glomerular Filtration Rate > 60.0, Lipase 358 11/23/16 11:55: Bedside Glucose (Misc Panel) 233H CBC/BMP Laboratory Tests 11/23/16 00:43 Red Blood Count 4.95, Mean Corpuscular Volume 81.6, Mean Corpuscular Hemoglobin 28.1, Mean Corpuscular Hemoglobin Concent 34.5, Red Cell Distribution Width 11.7 , Neutrophils (%) (Auto) 57.2, Lymphocytes (%) (Auto) 30.8, Monocytes (%) (Auto ) 5.8 H, Eosinophils (%) (Auto) 3.0, Basophils (%) (Auto) 0.8, Neutrophils # ( Auto) 5.0, Lymphocytes # (Auto) 2.7, Monocytes # (Auto) 0.5, Eosinophils # (Auto ) 0.3, Basophils # (Auto) 0.1 11/23/16 09:46 Red Blood Count 4.35, Mean Corpuscular Volume 82.2, Mean Corpuscular Hemoglobin 28.9, Mean Corpuscular Hemoglobin Concent 35.2, Red Cell Distribution Width 11.8 , Calcium Level 8.7, Aspartate Amino Transf (AST/SGOT) 12 L, Alanine Aminotransferase (ALT/SGPT) 23, Alkaline Phosphatase 58, Total Bilirubin 0.3, Total Protein 6.6 #, Albumin 3.0 L FSBS Laboratory Tests Test 11/22/16 22:35 11/23/16 00:23 11/23/16 02:52 11/23/16 11:55 Range/Units Bedside Glucose (Misc Panel) 510 455 328 233 70-105 MG/DL FELICITA DENNY MD Nov 23, 2016 15:31
[2016-11-23 16:29] LABS: ANION GAP 9 MEQ/L (8-16); BLOOD UREA NITROGEN 11 MG/DL (7-18); CALCIUM LEVEL 8.5 MG/DL (8.5-10.1); CARBON DIOXIDE LEVEL 26 MEQ/L (21-32); CHLORIDE LEVEL 106 MEQ/L (98-107); CREATININE FOR GFR 1.12 MG/DL (0.70-1.30); GLOMERULAR FILTRATION RATE > 60.0 (>56); GLUCOSE, FASTING 271 MG/DL (70-105); SODIUM LEVEL 141 MEQ/L (136-145)
[2016-11-23] MEDS: ATORVASTATIN 20 MG TAB PO SCH (21:45)
[2016-11-23 22:00] VITALS: BP 121/84
[2016-11-24] MEDS: HumaLOG INSULIN (NovoLOG) PER UNIT SC SCH ×4 (00:25→17:45)
[2016-11-24] MEDS: NS 1,000 ML IV SCH ×2 (00:26→06:14)
[2016-11-24 06:00] VITALS: BP 143/89
[2016-11-24] MEDS: HEPARIN SOD (PORCINE) 5000 UNITS/ML VIAL SQ SCH ×3 (06:14→21:53)
[2016-11-24 06:32] LABS: MEAN CORPUSCULAR HEMOGLOBIN 28.9 pg (27.0-33.0); MEAN CORPUSCULAR HGB CONC 35.2 g/dl (32.0-36.5); MEAN CORPUSCULAR VOLUME 82.3 fl (80.0-96.0); RED CELL DISTRIBUTION WIDTH 11.8 % (11.5-14.5)
[2016-11-24 06:45] LABS: ANION GAP 7 MEQ/L (8-16); BLOOD UREA NITROGEN 9 MG/DL (7-18); CALCIUM LEVEL 8.2 MG/DL (8.5-10.1); CARBON DIOXIDE LEVEL 27 MEQ/L (21-32); CHLORIDE LEVEL 109 MEQ/L (98-107); CREATININE FOR GFR 0.88 MG/DL (0.70-1.30); GLOMERULAR FILTRATION RATE > 60.0 (>56); GLUCOSE, FASTING 92 MG/DL (70-105); POTASSIUM SERUM 3.2 MEQ/L (3.5-5.1); SODIUM LEVEL 143 MEQ/L (136-145)
--- NOTE | 2016-11-24 08:02 | ECGEPIP ---
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
[2016-11-24] MEDS: SENOKOT S TAB PO SCH ×2 (09:00→21:52)
[2016-11-24] MEDS ORDERED: POTASSIUM CHLORIDE 10 MEQ SR TABLET PO ONE (09:00)
--- NOTE | 2016-11-24 09:04 | IPNPDOC ---
Assessment/Plan Date Seen The patient was seen on 11/24/16. Problems Problems: (1) Acute pancreatitis Status: Chronic Response to Treatment: Improving Problem Text: Advance diet today. CT negative for pancreatitis. + for gastroparesis, may be result of DM and chronic pain/medications. Anticipate DC in am. (2) Uncontrolled type 2 diabetes mellitus with hyperosmolar nonketotic hyperglycemia Status: Acute Problem Text: BS in 500s on arrival with hyperosmolar state, now resolved. - titrate home insulin On Lantus 35 units at home. Levemir increased to 25 units bid. Glucose levels have come down. Am fastin (3) Hypertriglyceridemia Status: Chronic Problem Text: Gemfibrozil, atorvastatin Plan / VTE VTE Prophylaxis Ordered?: Yes Plan IVF: Continue Diet: Advance Subjective Review of Systems CC/HPI The patient is a 51-year-old male admitted with a reason for visit of Acute Pancreatitis. Events since last encounter Tolerating full liquids this am. c/o residual abdominal pain which is slowly improving. No Morphine since yesterday. Constitutional: Denies: Chills, Fever, Malaise, Night Sweats, Weakness ENT: Denies: Dysphagia, Ear Pain, Head Aches Skin: Denies: Breakdown, Lesions, Rash Pulmonary: Denies: Cough, Dyspnea Cardiovascular: Denies: Chest Pain, Lt Headedness, Orthopnea, Palpitations, Paroxysmal Noc. Dyspnea Gastrointestinal: Reports: Abdominal Pain, Denies: Diarrhea, Nausea, Vomiting Genitourinary: Denies: Dysuria, Frequency, Incontinence, Retention Musculoskeletal: Reports: Back Pain (chronic) Psych: Reports: Mood Normal, Denies: Depression, Memory Issues Objective Physical Examination General Exam: Positive: Alert, Cooperative, No Acute Distress Eye Exam: Positive: Conjunctiva & lids normal, Negative: Sclera icteric Neck Exam: Positive: Supple, Negative: thyromegaly Chest Exam: Positive: Clear to auscultation, Normal air movement, Negative: Rales, Rhonchi, Wheezing Heart Exam: Positive: Normal S1, Normal S2, Rate Normal, Negative: Murmurs, Rubs Abdomen Exam: Positive: Normal bowel sounds, Soft, Tenderness (mild epigastrit ttp) Skin Exam: Positive: Nl turgor and temperature, Negative: Rash Psych Exam: Positive: Mental status NL Vital Signs/I&O Vital Signs Date Time Temp Pulse Resp B/P Pulse Ox O2 Delivery O2 Flow Rate FiO2 11/24/16 06:00 97.0 86 18 143/89 95 Room Air I&O- Last 24 Hours up to 6 AM 11/24/16 06:00 Intake Total 2340 ml Output Total 500 ml Balance 1840 ml Laboratory Data Labs 24H Laboratory Tests 2 11/23/16 09:46: Blood Urea Nitrogen 12, Creatinine 1.02, Sodium Level 142#, Potassium Level 4.1 , Chloride Level 106, Carbon Dioxide Level 29, Calcium Level 8.7, Aspartate Amino Transf (AST/SGOT) 12L, Alanine Aminotransferase (ALT/SGPT) 23, Alkaline Phosphatase 58, Total Bilirubin 0.3, Total Protein 6.6#, Albumin 3.0L, Albumin/ Globulin Ratio 0.83L, Anion Gap 7L, Glomerular Filtration Rate > 60.0, Lipase 358 11/23/16 11:55: Bedside Glucose (Misc Panel) 233H 11/23/16 15:55: Blood Urea Nitrogen 11, Creatinine 1.12, Sodium Level 141, Potassium Level 4.0, Chloride Level 106, Carbon Dioxide Level 26, Calcium Level 8.5, Anion Gap 9, Glomerular Filtration Rate > 60.0 11/23/16 17:03: Bedside Glucose (Misc Panel) 235H 11/23/16 21:31: Bedside Glucose (Misc Panel) 285H 11/24/16 00:12: Bedside Glucose (Misc Panel) 208H 11/24/16 06:03: Anion Gap 7L, Blood Urea Nitrogen 9, Creatinine 0.88, Sodium Level 143, Potassium Level 3.2L, Chloride Level 109H, Carbon Dioxide Level 27, Calcium Level 8.2L, Glomerular Filtration Rate > 60.0 11/24/16 06:10: Bedside Glucose (Misc Panel) 91 CBC/BMP Laboratory Tests 11/23/16 09:46 Calcium Level 8.7, Aspartate Amino Transf (AST/SGOT) 12 L, Alanine Aminotransferase (ALT/SGPT) 23, Alkaline Phosphatase 58, Total Bilirubin 0.3, Total Protein 6.6 #, Albumin 3.0 L, Red Blood Count 4.35, Mean Corpuscular Volume 82.2, Mean Corpuscular Hemoglobin 28.9, Mean Corpuscular Hemoglobin Concent 35.2, Red Cell Distribution Width 11.8 11/23/16 15:55 Calcium Level 8.5 11/24/16 06:03 Calcium Level 8.2 L, Red Blood Count 4.06 L, Mean Corpuscular Volume 82.3, Mean Corpuscular Hemoglobin 28.9, Mean Corpuscular Hemoglobin Concent 35.2, Red Cell Distribution Width 11.8 FSBS Laboratory Tests Test 11/23/16 11:55 11/23/16 17:03 11/23/16 21:31 11/24/16 00:12 Range/Units Bedside Glucose (Misc Panel) 233 235 285 208 70-105 MG/DL Test 11/24/16 06:10 Range/Units Bedside Glucose (Misc Panel) 91 70-105 MG/DL Soni Hudson FULFILLMENT COORDINATOR Nov 24, 2016 09:04
[2016-11-24] MEDS: GABAPENTIN 300 MG CAP PO SCH ×3 (10:00→21:52)
[2016-11-24] MEDS: OMEPRAZOLE 20 MG CAP PO SCH (10:00)
[2016-11-24] MEDS: GEMFIBROZIL 600 MG TAB PO SCH ×2 (10:00→21:52)
[2016-11-24] MEDS: ASPIRIN 81 MG ENTERIC TAB PO SCH (10:00)
[2016-11-24] MEDS: LEVEMIR (INSULIN DETEMIR) 1 UNITS/0.01ML SC SCH ×2 (10:01→21:53)
[2016-11-24 14:00] VITALS: BP 161/96
[2016-11-24] MEDS ORDERED: HumaLOG INSULIN (NovoLOG) PER UNIT SC SCH (21:00)
[2016-11-24] MEDS: ATORVASTATIN 20 MG TAB PO SCH (21:52)
[2016-11-24 22:00] VITALS: BP 148/98
[2016-11-25 06:00] VITALS: BP 140/70
[2016-11-25] MEDS: HEPARIN SOD (PORCINE) 5000 UNITS/ML VIAL SQ SCH (06:08)
[2016-11-25 06:35] LABS: MEAN CORPUSCULAR HGB CONC 34.1 g/dl (32.0-36.5); MEAN CORPUSCULAR VOLUME 85.1 fl (80.0-96.0); RED CELL DISTRIBUTION WIDTH 12.5 % (11.5-14.5); WHITE BLOOD COUNT 6.6 K/mm3 (4.0-10.0)
[2016-11-25 06:45] LABS: ANION GAP 8 MEQ/L (8-16); BLOOD UREA NITROGEN 7 MG/DL (7-18); CALCIUM LEVEL 8.7 MG/DL (8.5-10.1); CARBON DIOXIDE LEVEL 26 MEQ/L (21-32); CHLORIDE LEVEL 107 MEQ/L (98-107); GLOMERULAR FILTRATION RATE > 60.0 (>56); GLUCOSE, FASTING 316 MG/DL (70-105); POTASSIUM SERUM 4.2 MEQ/L (3.5-5.1); SODIUM LEVEL 141 MEQ/L (136-145)
[2016-11-25] MEDS: LEVEMIR (INSULIN DETEMIR) 1 UNITS/0.01ML SC SCH (07:46)
[2016-11-25] MEDS: GABAPENTIN 300 MG CAP PO SCH (07:47)
[2016-11-25] MEDS: SENOKOT S TAB PO SCH (07:47)
[2016-11-25] MEDS: OMEPRAZOLE 20 MG CAP PO SCH (07:47)
[2016-11-25] MEDS: GEMFIBROZIL 600 MG TAB PO SCH (07:47)
[2016-11-25] MEDS: ASPIRIN 81 MG ENTERIC TAB PO SCH (07:47)
[2016-11-25] MEDS: HumaLOG INSULIN (NovoLOG) PER UNIT SC SCH (07:47)
--- NOTE | 2016-11-25 13:43 | EDDOCDS ---
Physician Documentation [facility] Name: Anthony Love Age: 51 yrs Sex: Male : 1965 Arrival Date: 11/22/2016 Time: 22:21 Bed 21 Private MD: Tatyana Hooper M. Disposition: 11/23/16 03:38 Hospitalization ordered by Tonio Betancourt for Inpatient Admission. Preliminary diagnosis is Acute pancreatitis. - Bed requested for 4 [place]. - Status is Inpatient Admission. jrd - Condition is Stable. - Problem is an acute exacerbation. - Symptoms have improved. Historical: - Allergies: olives (Anaphylaxis); peanut butter (diarrhea); - Home Meds: 1. Lantus 100 unit/mL Sub-Q soln 50 unit nightly 2. Lipitor 40 mg Oral tab 1 tab once daily 3. lisinopril 10 mg oral tab 4. tramadol 50 mg Oral tab twice a day 5. albuterol sulfate 90 mcg/actuation Inhl HFAA 2 puffs every 4-6 hours 6. gabapentin 600 mg Oral tab 1 tab 3 times per day 7. omeprazole 40 mg Oral cpDR 1 cap once daily 8. aspirin 81 mg Oral tab 1 tab once daily 9. gemfibrozil 600 mg Oral tab 1 tab 2 times per day - PMHx: Diabetes - IDDM: uncontrolled; Hypertension; hyperlipidemia; Pancreatitis; - PSHx: none; - Social history: Smoking status: Patient states was never smoker of tobacco. No barriers to communication noted. - : The pt / caregiver states he / she is not on anticoagulants. Home medication list is obtained from the patient. - Exposure Risk Screening:: None identified. Vital Signs: 11/22 22:24 BP 154 / 103; Pulse 116; Resp 18 S; Temp 98.8(O); Pulse Ox 98% on R/A; Weight 78.93 kg gr2 / 174.01 lbs (R); Height 5 ft. 7 in. (170.18 cm) (R); Pain 5/10; 11/23 00:23 BP 133 / 87; Pulse 120; Resp 18; Temp 98.3; Pulse Ox 98% on R/A; Pain 10/10; nn1 00:32 BP 164 / 95 (auto/); cf2 00:35 Pulse 108 MON; Pulse Ox 99% ; cf2 01:02 BP 139 / 87 (auto/); cf2 01:02 Pulse 100 MON; Pulse Ox 94% ; cf2 01:17 BP 143 / 89 (auto/); cf2 01:17 Pulse 102 MON; Pulse Ox 95% ; cf2 01:32 BP 145 / 93 (auto/); cf2 01:32 Pulse 104 MON; Pulse Ox 98% ; cf2 01:47 BP 131 / 84 (auto/); cf2 01:47 Pulse 106 MON; Pulse Ox 95% ; cf2 02:02 BP 133 / 86 (auto/); kas2 02:02 Pulse 110 MON; Pulse Ox 96% ; kas2 02:53 BP 133 / 86; Pulse 107; Resp 18; Pulse Ox 99% ; Pain 10/10; kas2 03:05 BP 131 / 84; Pulse 98; Resp 20; Pulse Ox 99% on R/A; kas2 03:15 BP 132 / 85; Pulse 99; Pain 9/10; kas2 03:50 BP 128 / 82; Pulse 98; Resp 18; Temp 97.2(O); Pulse Ox 95% on R/A; kas2 05:17 BP 133 / 90 (auto/); kas2 05:17 Pulse 94 MON; Pulse Ox 96% ; kas2 06:21 BP 135 / 95 (auto/); kas2 06:21 Pulse 94 MON; Pulse Ox 97% ; kas2 06:24 Resp 20; Temp 97.9(O); kas2 07:13 Pulse 92 MON; Resp 18; Pulse Ox 96% on R/A; jjr 07:42 BP 127 / 81 (auto/); jjr 07:42 Pulse 94 MON; Resp 18; Pulse Ox 94% on R/A; jjr 11/22 22:24 Body Mass Index 27.25 (78.93 kg, 170.18 cm) gr2 MDM: 11/22 22:43 Fingerstick Blood Sugar Ordered. EDMS 11/23 00:32 ECG WITH READING ER PHYS+CARDIAG ordered. EDMS 00:35 Fingerstick Blood Sugar Ordered. EDMS 01:14 Ondansetron 4 mg IVP once ordered. 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 mm11 01:14 IV Saline Lock ordered. mm11 01:14 Rhythm Strip to chart ordered. mm11 01:14 Undress patient appropriately for examination ordered. mm11 01:14 morphine 4 mg IVP every 30 minutes; Document pain score/vitals after each dose (Hold if mm11 SBP < 90mmHg) x2 ordered. 01:15 Basic Metabolic Profile Ordered. EDMS 01:15 CBC with Diff Ordered. EDMS 01:15 Cardiac Injury Profile Ordered. EDMS 01:15 Troponin Ordered. EDMS 01:15 Amylase Ordered. EDMS 01:15 Lipase Ordered. EDMS 01:15 Liver Profile Ordered. EDMS 01:15 Venous Blood Gas (large pea green tube on ice) Ordered. EDMS 01:15 Osmolality, Serum Ordered. EDMS 01:15 NOTHING BY MOUTH+DIET ordered. EDMS 01:24 Insulin Regular Human 5 units IVP once ordered. mm11 01:33 Financial registration complete. slh 01:44 Fingerstick Blood Sugar Reviewed. mm11 01:44 Fingerstick Blood Sugar Reviewed. mm11 01:44 Basic Metabolic Profile Reviewed. mm11 01:44 CBC with Diff Reviewed. mm11 01:44 Amylase Reviewed. mm11 01:44 Lipase Reviewed. mm11 01:44 Liver Profile Reviewed. mm11 01:44 Cardiac Injury Profile Reviewed. mm11 01:44 Troponin Reviewed. mm11 01:44 Venous Blood Gas (large pea green tube on ice) Reviewed. mm11 02:00 Basic Metabolic Profile Reviewed. mm11 02:00 Amylase Reviewed. mm11 02:00 Lipase Reviewed. mm11 02:00 Liver Profile Reviewed. mm11 02:00 Osmolality, Serum Reviewed. mm11 02:00 Cardiac Injury Profile Reviewed. mm11 02:00 Troponin Reviewed. mm11 02:07 Accucheck hourly ordered. mm11 02:08 CT ABD & PELVIS: IV Contrast Only Ordered. EDMS 03:02 [facility] Payment Agreement was scanned into [employer] and attached to record. slh 03:08 Fingerstick Blood Sugar Ordered. EDMS 03:14 Fingerstick Blood Sugar Reviewed. mm11 04:13 CT ABD & PELVIS: IV Contrast Only Reviewed. mm11 04:19 Admission / Observation Status ordered. EDMS 04:19 NPO DIET ordered. EDMS 04:32 TRIGLYCERIDES LEVEL Ordered. EDMS 07:13 morphine 2 mg IVP once ordered. jjr 07:40 COMPLETE COMPHRENSIVE METABOLI Ordered. EDMS 07:40 COMPLETE BLOOD COUNT Ordered. EDMS 07:40 LIPASE Ordered. EDMS 07:40 BASIC METABOLIC PROFILE Ordered. EDMS 09:14 T-Sheet-- Draft Copy was scanned into [employer] and attached to record. 12:05 Fingerstick Blood Sugar Ordered. EDMS 14:35 ECG/EKG was scanned into [employer] and attached to record. Point of Care Testing: Blood Glucose: 11/22 22:36 Blood Glucose: 510 mg/dL; tm5 11/23 00:23 Blood Glucose: 459 mg/dL; nn1 02:53 Blood Glucose: 328 mg/dL; kas2 Ranges: Administered Medications: 01:37 Drug: Ondansetron 4 mg [ondansetron HCl 2 mg/mL intravenous solution (2 mL)] Route: kas2 IVP; Site: right forearm; 01:39 Drug: morphine 4 mg [morphine 4 mg/mL intravenous cartridge (1 mL)] Route: IVP; Site: [facility] right forearm; 02:53 Follow up: BP 133 / 86; Pulse 107 bpm; Resp 18 bpm; Pulse Ox 99% ; Pain 10/10 Adult; kas2 Response: No Adverse Reaction; No significant change. 01:52 Drug: Insulin Regular Human 5 units [insulin regular human 100 unit/mL injection kas2 solution (0.05 mL)] {Co-Signature: cf2 (Angélica Blankenship RN).} Route: IVP; Site: right forearm; 02:59 Drug: morphine 4 mg [morphine 4 mg/mL intravenous cartridge (1 mL)] Route: IVP; Site: [facility] right forearm; 03:15 Follow up: BP 132 / 85; Pulse 99 bpm; Pain 9/10 Adult [facility] 03:15 Follow up: Response: No Adverse Reaction; Pain is decreased [facility] 07:13 Drug: morphine 2 mg [morphine 2 mg/mL intravenous cartridge (1 mL)] Route: IVP; Site: jr right forearm; 07:43 Follow up: Response: No significant change. jjr Signatures: Dispatcher [employer] EDMS Margarita Joshi, Reg Reg gb Rohith Clements, DO mm11 Jerri Cueva RN RN jjr Neri Montoya, [employer] S[employer] jrd Faith Maurer Steven, RN RN sa Matice, Tonya, RN RN [facility] Stephani Henderson RN [facility] Angélica Blankenship RN cf2 The chart was reviewed and I authenticate all verbal orders and agree with the evaluation and treatment provided.Corrections: (The following items were deleted from the chart) 04:32 04:21 TRIGLYCERIDES LEVEL ordered. EDMS EDMS Attachments: 03:02 [facility] Payment Agreement [facility] 09:14 T-Sheet-- Draft Copy gb 14:35 ECG/EKG gb Chart Complete MTDD
--- NOTE | 2016-11-25 13:43 | EDDOCDS ---
Nurse's Notes [facility] Name: Anthony Love Age: 51 yrs Sex: Male : 1965 Arrival Date: 11/22/2016 Time: 22:21 Bed 21 Private MD: Tatyana Hooper M. Diagnosis: Acute pancreatitis Presentation: 11/22 22:27 Presenting complaint: Patient states: per pt brought here by ambulance states "I'm tm5 sick", pt complains of nausea & vomiting for the past 3 days now, states he isn't able to control his Blood sugar at home states it was over 600 tonight. Adult Sepsis Screening: The patient does not have new or worsening altered mentation. Patient's respiratory rate is less than 22. Systolic blood pressure is greater than 100. Patient has a qSOFA score of 0- Negative Sepsis Screen. Suicide/Homicide risk assessment- the patient denies having any suicidal and/or homicidal ideations and does not present with any other emotional, behavioral or mental health complaints. Status: Patient is not a marketing services coordinator or dependent. Transition of care: patient was not received from another setting of care. 22:27 Acuity: JOESPH Level 3 tm5 22:27 Method Of Arrival: Ambulance tm5 Triage Assessment: 22:31 General: Appears ill, Behavior is appropriate for age, cooperative. Pain: Location: tm5 epigastric area Pain currently is 5 out of 10 on a pain scale. Quality of pain is described as burning, sharp. Pt Declines HIV testing. Neurological: Level of Consciousness is awake, alert, Oriented to person, place, time. Respiratory: Airway is patent Respiratory effort is even, unlabored, Respiratory pattern is regular, symmetrical. GI: Abdomen is non- distended Reports diarrhea, nausea, vomiting. Derm: Skin is pink, warm & dry. normal. Historical: - Allergies: olives (Anaphylaxis); peanut butter (diarrhea); - Home Meds: 1. Lantus 100 unit/mL Sub-Q soln 50 unit nightly 2. Lipitor 40 mg Oral tab 1 tab once daily 3. lisinopril 10 mg oral tab 4. tramadol 50 mg Oral tab twice a day 5. albuterol sulfate 90 mcg/actuation Inhl HFAA 2 puffs every 4-6 hours 6. gabapentin 600 mg Oral tab 1 tab 3 times per day 7. omeprazole 40 mg Oral cpDR 1 cap once daily 8. aspirin 81 mg Oral tab 1 tab once daily 9. gemfibrozil 600 mg Oral tab 1 tab 2 times per day - PMHx: Diabetes - IDDM: uncontrolled; Hypertension; hyperlipidemia; Pancreatitis; - PSHx: none; - Social history: Smoking status: Patient states was never smoker of tobacco. No barriers to communication noted. - : The pt / caregiver states he / she is not on anticoagulants. Home medication list is obtained from the patient. - Exposure Risk Screening:: None identified. Screenin:36 Screening information is obtained from the patient. Fall risk: No risks identified. tm5 Assistance ADL's: requires no assistance with activities of daily living. Abuse/DV Screen: The patient / caregiver reports he/she is: not in a situation that causes fear, pain or injury. Nutritional screening: No deficits noted. Advance Directives: Currently, there is a health care proxy, Emeli. home support is adequate. Assessment: 11/23 00:25 General: Appears ill. Pain: Location: mid-sternal area Pain currently is 10 out of 10 nn1 on a pain scale. Quality of pain is described as stabbing, "someones taking a sledgehammer to my chest" Aggravated by vomiting/burping. Neurological: Level of Consciousness is awake, alert. Respiratory: Airway is patent Respiratory effort is even, unlabored, Respiratory pattern is regular. GI: Abdomen is Pt is actively vomiting bile, Bowel sounds present X 4 quads. Reports diarrhea, gaseousness, vomiting. Derm: Skin is jaundiced. 00:50 General: Appears uncomfortable, well nourished, well groomed, Behavior is appropriate kas2 for age, cooperative. Pain: Location: chest and mid-sternal area and abdomen and epigastric area Pain currently is 10 out of 10 on a pain scale. Pain does not radiate. Neurological: Level of Consciousness is awake, alert, Oriented to person, place, time. Cardiovascular: Capillary refill < 3 seconds Heart tones S1 S2 present Rhythm is sinus tachycardia No ectopy. Chest pain is described as severe, quality is stabbing, is located in epigastric area radiates Does not radiate. Respiratory: Airway is patent Respiratory effort is even, unlabored, Respiratory pattern is regular, symmetrical, Breath sounds are clear bilaterally. GI: Abdomen is non- distended Bowel sounds present X 4 quads. Abd is soft and non tender X 4 quads. Reports diarrhea, nausea, vomiting. Derm: Skin is intact, Skin is dry, Skin is pink, warm & dry. Skin temperature is warm. 01:10 General: Appears in no apparent distress, uncomfortable, Behavior is appropriate for cf2 age, cooperative. Pain: Location: chest and mid-sternal area and abdomen and epigastric area Pain currently is 9 out of 10 on a pain scale. Neurological: Level of Consciousness is awake, alert, Oriented to person, place, time. Cardiovascular: Rhythm is sinus tachycardia No ectopy. Respiratory: Airway is patent Respiratory effort is even, unlabored, Respiratory pattern is regular, symmetrical. Derm: Skin is intact, Skin is dry, Skin is pink, warm & dry. Skin temperature is warm. 02:00 General: Patient gone to CT scan via stretcher with tech.. kas2 02:15 General: Patient back from CT scan via stretcher with RN. Resettled in bed. No apparent [facility] distress. States pain is 8/10 in abdomen. Call jha within reach. Will continue to monitor.. 03:31 General: Appears in no apparent distress, to be sleeping. Behavior is appropriate for kas2 age, cooperative. Pain: Location: chest and mid-sternal area and abdomen and epigastric area Pain currently is 5 out of 10 on a pain scale. Neurological: Level of Consciousness is awake, alert, Oriented to person, place, time. Cardiovascular: Rhythm is sinus tachycardia No ectopy. Respiratory: Airway is patent Respiratory effort is even, unlabored, Respiratory pattern is regular, symmetrical. Derm: Skin is intact, Skin is dry, Skin is pink, warm & dry. Skin temperature is warm. 04:45 General: Appears in no apparent distress, to be sleeping. Behavior is appropriate for kas2 age, cooperative. Pain: Denies pain. Neurological:. Cardiovascular: Rhythm is sinus tachycardia No ectopy. Respiratory: Airway is patent Respiratory effort is even, unlabored, Respiratory pattern is regular, symmetrical. Derm: Skin is intact, Skin is dry, Skin is pink, warm & dry. Skin temperature is warm. 05:38 General: Appears in no apparent distress, to be sleeping. Cardiovascular: Rhythm is kas2 sinus tachycardia No ectopy. Respiratory: Airway is patent Respiratory effort is even, unlabored, Respiratory pattern is regular, symmetrical. Derm: Skin is intact, Skin is dry, Skin is pink, warm & dry. Skin temperature is warm. 06:21 General: Appears in no apparent distress, comfortable, Behavior is appropriate for age, kas2 cooperative. Pain: Denies pain. Neurological: Level of Consciousness is awake, alert, Oriented to person, place, time. Cardiovascular: Rhythm is sinus rhythm No ectopy. Respiratory: Airway is patent Respiratory effort is even, unlabored, Respiratory pattern is regular, symmetrical. Derm: Skin is intact, Skin is dry, Skin is pink, warm & dry. Skin temperature is warm. 07:14 General: Appears in no apparent distress, comfortable, Behavior is appropriate for age. jjr Pain: Location: left breast and right upper quadrant Pain currently is 9 out of 10 on a pain scale. Quality of pain is described as pressure to left anterior chest and sharp pain to RUQ. Neurological: No deficits noted. Cardiovascular: Rhythm is sinus rhythm Chest pain is described as Pain is 9 out of 10 on a pain scale. quality is pressure, is located in left anterior chest wall. Respiratory: Airway is patent Respiratory effort is even, unlabored, Respiratory pattern is regular. GI: Abdomen is non- distended Bowel sounds hypoactive in right upper quadrant, left upper quadrant, right lower quadrant and left lower quadrant Abd is soft X 4 quads Guarding noted X 4 quads. Reports epigastric pain, upper abdominal pain. Derm: No deficits noted. 08:47 General: Appears to be sleeping. r Vital Signs: 11/22 22:24 BP 154 / 103; Pulse 116; Resp 18 S; Temp 98.8(O); Pulse Ox 98% on R/A; Weight 78.93 kg gr2 (R); Height 5 ft. 7 in. (170.18 cm) (R); Pain /10; 11/23 00:23 BP 133 / 87; Pulse 120; Resp 18; Temp 98.3; Pulse Ox 98% on R/A; Pain 10; nn1 00:32 BP 164 / 95 (auto/); cf2 00:35 Pulse 108 MON; Pulse Ox 99% ; cf2 01:02 BP 139 / 87 (auto/); cf2 01:02 Pulse 100 MON; Pulse Ox 94% ; cf2 01:17 BP 143 / 89 (auto/); cf2 01:17 Pulse 102 MON; Pulse Ox 95% ; cf2 01:32 BP 145 / 93 (auto/); cf2 01:32 Pulse 104 MON; Pulse Ox 98% ; cf2 01:47 BP 131 / 84 (auto/); cf2 01:47 Pulse 106 MON; Pulse Ox 95% ; cf2 02:02 BP 133 / 86 (auto/); kas2 02:02 Pulse 110 MON; Pulse Ox 96% ; kas2 02:53 BP 133 / 86; Pulse 107; Resp 18; Pulse Ox 99% ; Pain 10/10; kas2 03:05 BP 131 / 84; Pulse 98; Resp 20; Pulse Ox 99% on R/A; kas2 03:15 BP 132 / 85; Pulse 99; Pain 9/10; kas2 03:50 BP 128 / 82; Pulse 98; Resp 18; Temp 97.2(O); Pulse Ox 95% on R/A; kas2 05:17 BP 133 / 90 (auto/); kas2 05:17 Pulse 94 MON; Pulse Ox 96% ; kas2 06:21 BP 135 / 95 (auto/); kas2 06:21 Pulse 94 MON; Pulse Ox 97% ; kas2 06:24 Resp 20; Temp 97.9(O); kas2 07:13 Pulse 92 MON; Resp 18; Pulse Ox 96% on R/A; jjr 07:42 BP 127 / 81 (auto/); jjr 07:42 Pulse 94 MON; Resp 18; Pulse Ox 94% on R/A; jjr 11/22 22:24 Body Mass Index 27.25 (78.93 kg, 170.18 cm) gr2 Vitals: 11/22 22:24 Log In Time: November 22, 2016 at 22:24. gr2 ED Course: 22:22 Patient visited by Adelia Cueva. gr2 22:22 Patient moved to Waiting gr2 22:23 Tatyana Hooper is Private Physician. gr2 22:26 Patient visited by Adelia Cueva. gr2 22:26 Patient moved to Pre RCE gr2 22:29 Triage Initiated tm5 11/23 00:30 Ela Oakley,RN is Primary Nurse. sls1 00:30 Stephani Henderson,RN is Primary Nurse. sls1 00:30 Patient moved to 4 sls1 00:43 EKG done. (by ED staff). Reviewed by Rohith Clements DO. jmv 00:44 Patient visited by Mendez Macario PCA. jmv 01:00 Patient visited by Stephani Henderson RN. kas2 01:00 surveillance system monitor on. Pulse ox on. NIBP on. kas2 01:00 Inserted saline lock: 20 gauge in right antecubital area and blood collected. The kas2 patient tolerated the procedure well. No procedures done that require assistance. 01:08 Rohith Clements DO is Attending Physician. mm11 01:08 Patient visited by Rohith Clements DO. mm11 01:13 Patient visited by Rohith Clements DO. mm11 01:40 Notified attending ED physician of Critical lab value. BG FS 456. tm5 01:41 Patient visited by Stephani Henderson RN. kas2 01:51 Patient visited by Angélica Blankenship RN. cf2 02:56 Patient visited by Stephani Henderson RN. kas2 03:01 Patient name changed from Anthony\\S\\\\S\\Kate\\S\\ to Anthony\\S\\ \\S\\Kate. EDMS 03:02 [facility] Payment Agreement was scanned into [employer] and attached to record. [facility] 03:19 CT ABD & PELVIS: IV Contrast Only Returned. EDMS 03:32 Patient visited by Stephani Henderson RN. kas2 03:38 Tonio Betancourt MD is Hospitalizing Provider. mm11 05:16 Patient visited by Stephani Henderson RN. kas2 05:40 Patient visited by Stephani Henderson RN. kas2 06:11 Patient visited by Stephani Henderson RN. kas2 06:22 Patient visited by Stephani Henderson RN. kas2 06:24 Patient visited by Stephani Henderson RN. kas2 06:29 Patient moved to Admit Hold tmm1 07:00 Primary Nurse role handed off by Stephani Henderson RN kas2 07:16 Patient visited by Jerri Cueva, KITTY. jjr 07:41 Jerri Cueva, RN is Primary Nurse. jjr 07:41 Primary Nurse role handed off by Ela Oakley,KITTY jjr 08:48 Patient visited by Jerri Cueva, KITTY. jjr 08:59 Patient moved to 21 jjr 09:14 T-Sheet-- Draft Copy was scanned into [employer] and attached to record. gb 14:35 ECG/EKG was scanned into [employer] and attached to record. gb Administered Medications: 01:37 Drug: Ondansetron 4 mg [ondansetron HCl 2 mg/mL intravenous solution (2 mL)] Route: kas2 IVP; Site: right forearm; 01:39 Drug: morphine 4 mg [morphine 4 mg/mL intravenous cartridge (1 mL)] Route: IVP; Site: [facility] right forearm; 02:53 Follow up: BP 133 / 86; Pulse 107 bpm; Resp 18 bpm; Pulse Ox 99% ; Pain 10/10 Adult; kas2 Response: No Adverse Reaction; No significant change. 01:52 Drug: Insulin Regular Human 5 units [insulin regular human 100 unit/mL injection [facility] solution (0.05 mL)] {Co-Signature: cf2 (Angélica Blankenship RN).} Route: IVP; Site: right forearm; 02:59 Drug: morphine 4 mg [morphine 4 mg/mL intravenous cartridge (1 mL)] Route: IVP; Site: [facility] right forearm; 03:15 Follow up: BP 132 / 85; Pulse 99 bpm; Pain 9/10 Adult [facility] 03:15 Follow up: Response: No Adverse Reaction; Pain is decreased [facility] 07:13 Drug: morphine 2 mg [morphine 2 mg/mL intravenous cartridge (1 mL)] Route: IVP; Site: [facility] right forearm; 07:43 Follow up: Response: No significant change. r Point of Care Testing: Blood Glucose: 11/22 22:36 Blood Glucose: 510 mg/dL; tm5 11/23 00:23 Blood Glucose: 459 mg/dL; nn1 02:53 Blood Glucose: 328 mg/dL; kas2 Ranges: Output: 07:14 Urine: 525.00ml (Voided); Total: 525.00ml. jr Order Results: Lab Order: Fingerstick Blood Sugar; SPEC'M 11/22/16 22:35 Test: BEDSIDE GLUCOSE; Value: 510; Range: 70-105; Abnormal: Above upper panic limits; Units: MG/DL; Status: F Test Note: ; Doctor Notified Lab Order: Fingerstick Blood Sugar; SPEC'M 11/23/16 00:23 Test: BEDSIDE GLUCOSE; Value: 459; Range: 70-105; Abnormal: Above high normal; Units: MG/DL; Status: F Lab Order: Basic Metabolic Profile; SPEC'M 11/23/16 00:43 Test: GLUCOSE, FASTING; Value: 456; Range: 70-105; Abnormal: Above upper panic limits; Units: MG/DL; Status: F Test: BLOOD UREA NITROGEN; Value: 14; Range: 7-18; Units: MG/DL; Status: F Test: CREATININE FOR GFR; Value: 1.23; Range: 0.70-1.30; Units: MG/DL; Status: F Test: GLOMERULAR FILTRATION RATE; Value: > 60.0; Range: >56; Status: F Test: SODIUM LEVEL; Value: 133; Range: 136-145; Abnormal: Below low normal; Units: MEQ/L; Status: F Test: POTASSIUM SERUM; Value: 4.0; Range: 3.5-5.1; Units: MEQ/L; Status: F Test: CHLORIDE LEVEL; Value: 98; Range: 98-107; Units: MEQ/L; Status: F Test: CARBON DIOXIDE LEVEL; Value: 26; Range: 21-32; Units: MEQ/L; Status: F Test: ANION GAP; Value: 9; Range: 8-16; Units: MEQ/L; Status: F Test: CALCIUM LEVEL; Value: 8.9; Range: 8.5-10.1; Units: MG/DL; Status: F Test Note: ; Units are mL/min/1.73 m2 Chronic Kidney Disease Staging per NKF: Stage I & II GFR >=60 Normal to Mildly Decreased Stage III GFR 30-59 Moderately Decreased Stage IV GFR 15-29 Severely Decreased Stage V GFR <15 Very Little GFR Left ESRD GFR <15 on CHIEF FINANCIAL OFFICER Lab Order: CBC with Diff; SPEC'11/23/16 00:43 Test: WHITE BLOOD COUNT; Value: 8.8; Range: 4.0-10.0; Units: K/mm3; Status: F Test: RED BLOOD COUNT; Value: 4.95; Range: 4.30-6.10; Units: M/mm3; Status: F Test: HEMOGLOBIN; Value: 13.9; Range: 14.0-18.0; Abnormal: Below low normal; Units: g/dl; Status: F Test: HEMATOCRIT; Value: 40.4; Range: 42.0-52.0; Abnormal: Below low normal; Units: %; Status: F Test: MEAN CORPUSCULAR VOLUME; Value: 81.6; Range: 80.0-96.0; Units: fl; Status: F Test: MEAN CORPUSCULAR HEMOGLOBIN; Value: 28.1; Range: 27.0-33.0; Units: pg; Status: F Test: MEAN CORPUSCULAR HGB CONC; Value: 34.5; Range: 32.0-36.5; Units: g/dl; Status: F Test: RED CELL DISTRIBUTION WIDTH; Value: 11.7; Range: 11.5-14.5; Units: %; Status: F Test: PLATELET COUNT, AUTOMATED; Value: 209; Range: 150-450; Units: k/mm3; Status: F Test: NEUTROPHILS %; Value: 57.2; Range: 36.0-66.0; Units: %; Status: F Test: LYMPH %; Value: 30.8; Range: 24.0-44.0; Units: %; Status: F Test: MONO %; Value: 5.8; Range: 0.0-5.0; Abnormal: Above high normal; Units: %; Status: F Test: EOS %; Value: 3.0; Range: 0.0-3.0; Units: %; Status: F Test: BASO %; Value: 0.8; Range: 0.0-1.0; Units: %; Status: F Test: LARGE UNSTAINED CELL %; Value: 2.4; Range: 0.0-4.0; Units: %; Status: F Test: NEUTROPHILS #; Value: 5.0; Range: 1.8-7.7; Units: K/mm3; Status: F Test: LYMPH #; Value: 2.7; Range: 1.5-4.5; Units: K/mm3; Status: F Test: MONO #; Value: 0.5; Range: 0.0-0.8; Units: K/mm3; Status: F Test: EOS #; Value: 0.3; Range: 0.0-0.50; Units: K/mm3; Status: F Test: BASO #; Value: 0.1; Range: 0.0-0.2; Units: K/mm3; Status: F Test: LARGE UNSTAINED CELL #; Value: 0.2; Range: 0.0-0.4; Units: K/mm3; Status: F Lab Order: Cardiac Injury Profile; [facility]' 11/23/16 00:43 Test: CPK CREATINE PHOSPHOKINASE; Value: 130; Range: 39-308; Units: U/L; Status: F Test: CK-MB VALUE MASS; Value: 2.3; Range: 0.0-3.6; Units: NG/ML; Status: F Test: MB/CK RELATIVE INDEX; Value: 1.76; Range: < OR =4; Status: F Test Note: ; DIAGNOSIS CRITERIA MMB ng/ml Relative Index (RI) NON-AMI < or = 5 N/A AVILES ZONE > 5 < or = 4 AMI > 5 > 4 Lab Order: Troponin; [facility]' 11/23/16 00:43 Test: TROPONIN I; Value: < 0.02; Range: < 0.10; Units: NG/ML; Status: F Test Note: ; Troponin I Reference Interval for Siemens T-ZONE LOCI: 99th Percentile= 0.00-0.045 ng/ml Risk Stratification: <= 0.10 ng/ml Decreased Risk for Adverse Clinical Events. 0.10-1.50 ng/ml Increased Risk for Adverse Clinical Events. Evaluation of additional criterion and/or repeat testing in 2-6 hours is suggested to rule out myocardial damage. >= 1.50 ng/ml Indicative of Myocardial Injury. Lab Order: Amylase; [facility]' 11/23/16 00:43 Test: AMYLASE; Value: 130; Range: 25-115; Abnormal: Above high normal; Units: U/L; Status: F Lab Order: Lipase; [facility]' 11/23/16 00:43 Test: LIPASE; Value: 1647; Range: 73-393; Abnormal: Above high normal; Units: U/L; Status: F Lab Order: Liver Profile; [facility]' 11/23/16 00:43 Test: AST/SGOT; Value: 14; Range: 15-37; Abnormal: Below low normal; Units: U/L; Status: F Test: ALT/SGPT; Value: 32; Range: 12-78; Units: U/L; Status: F Test: ALKALINE PHOSPHATASE; Value: 79; Range: 45-117; Units: U/L; Status: F Test: BILIRUBIN,TOTAL; Value: 0.3; Range: 0.2-1.0; Units: MG/DL; Status: F Test: BILIRUBIN,DIRECT; Value: < 0.1; Range: 0.0-0.2; Units: MG/DL; Status: F Test: TOTAL PROTEIN; Value: 8.4; Range: 6.4-8.2; Abnormal: Above high normal; Units: GM/DL; Status: F Test: ALBUMIN; Value: 3.5; Range: 3.2-5.2; Units: GM/DL; Status: F Test: ALBUMIN/GLOBULIN RATIO; Value: 0.71; Range: 1.00-1.93; Abnormal: Below low normal; Status: F Lab Order: Venous Blood Gas (large pea green tube on ice); SPEC'M 11/23/16 00:43 Test: VENOUS PH; Value: 7.414; Range: 7.330-7.430; Units: UNITS; Status: F Test: VENOUS PARTIAL PRESSURE CO2; Value: 39.2; Range: 38.0-50.0; Units: mmHg; Status: F Test: VENOUS PARTIAL PRESSURE O2; Value: 39.1; Range: 30.0-50.0; Units: mmHg; Status: F Test: VENOUS TOTAL CO2; Value: 25.7; Range: 24.0-28.0; Units: MEQ/L; Status: F Test: VENOUS HCO3; Value: 24.5; Range: 23.0-27.0; Units: MEQ/L; Status: F Test: VENOUS BASE EXCESS; Value: 0.1; Range: -2.0-2.0; Status: F Test: VENOUS STANDARD HCO3; Value: 24.1; Units: MEQ/L; Status: F Test: VENOUS O2 SATURATION; Value: 77.7; Range: 60.0-80.0; Units: %; Status: F Lab Order: Osmolality, Serum; SPEC'M 11/23/16 00:43 Test: OSMOLALITY SERUM; Value: 306; Range: 275-295; Abnormal: Above high normal; Units: MOSM/KG; Status: F Lab Order: Fingerstick Blood Sugar; SPEC' 11/23/16 02:52 Test: BEDSIDE GLUCOSE; Value: 328; Range: 70-105; Abnormal: Above high normal; Units: MG/DL; Status: F Lab Order: TRIGLYCERIDES LEVEL; [facility] 11/23/16 00:43 Test: TRIGLYCERIDES LEVEL; Value: 592; Range: <150; Abnormal: Above high normal; Units: MG/DL; Status: F Lab Order: COMPLETE COMPHRENSIVE METABOLI; [facility] 11/23/16 09:46 Test: GLUCOSE, FASTING; Value: 273; Range: 70-105; Abnormal: Above high normal; Units: MG/DL; Status: F Test: BLOOD UREA NITROGEN; Value: 12; Range: 7-18; Units: MG/DL; Status: F Test: CREATININE FOR GFR; Value: 1.02; Range: 0.70-1.30; Units: MG/DL; Status: F Test: GLOMERULAR FILTRATION RATE; Value: > 60.0; Range: >56; Status: F Test: SODIUM LEVEL; Value: 142; Range: 136-145; Abnormal: Delta; Units: MEQ/L; Status: F Test: POTASSIUM SERUM; Value: 4.1; Range: 3.5-5.1; Units: MEQ/L; Status: F Test: CHLORIDE LEVEL; Value: 106; Range: 98-107; Units: MEQ/L; Status: F Test: CARBON DIOXIDE LEVEL; Value: 29; Range: 21-32; Units: MEQ/L; Status: F Test: ANION GAP; Value: 7; Range: 8-16; Abnormal: Below low normal; Units: MEQ/L; Status: F Test: CALCIUM LEVEL; Value: 8.7; Range: 8.5-10.1; Units: MG/DL; Status: F Test: AST/SGOT; Value: 12; Range: 15-37; Abnormal: Below low normal; Units: U/L; Status: F Test: ALT/SGPT; Value: 23; Range: 12-78; Units: U/L; Status: F Test: ALKALINE PHOSPHATASE; Value: 58; Range: 45-117; Units: U/L; Status: F Test: BILIRUBIN,TOTAL; Value: 0.3; Range: 0.2-1.0; Units: MG/DL; Status: F Test: TOTAL PROTEIN; Value: 6.6; Range: 6.4-8.2; Abnormal: Delta; Units: GM/DL; Status: F Test: ALBUMIN; Value: 3.0; Range: 3.2-5.2; Abnormal: Below low normal; Units: GM/DL; Status: F Test: ALBUMIN/GLOBULIN RATIO; Value: 0.83; Range: 1.00-1.93; Abnormal: Below low normal; Status: F Test Note: ; Units are mL/min/1.73 m2 Chronic Kidney Disease Staging per NKF: Stage I & II GFR >=60 Normal to Mildly Decreased Stage III GFR 30-59 Moderately Decreased Stage IV GFR 15-29 Severely Decreased Stage V GFR <15 Very Little GFR Left ESRD GFR <15 on CHIEF FINANCIAL OFFICER Lab Order: COMPLETE BLOOD COUNT; SPEC'11/23/16 09:46 Test: WHITE BLOOD COUNT; Value: 7.0; Range: 4.0-10.0; Units: K/mm3; Status: F Test: RED BLOOD COUNT; Value: 4.35; Range: 4.30-6.10; Units: M/mm3; Status: F Test: HEMOGLOBIN; Value: 12.6; Range: 14.0-18.0; Abnormal: Below low normal; Units: g/dl; Status: F Test: HEMATOCRIT; Value: 35.8; Range: 42.0-52.0; Abnormal: Below low normal; Units: %; Status: F Test: MEAN CORPUSCULAR VOLUME; Value: 82.2; Range: 80.0-96.0; Units: fl; Status: F Test: MEAN CORPUSCULAR HEMOGLOBIN; Value: 28.9; Range: 27.0-33.0; Units: pg; Status: F Test: MEAN CORPUSCULAR HGB CONC; Value: 35.2; Range: 32.0-36.5; Units: g/dl; Status: F Test: RED CELL DISTRIBUTION WIDTH; Value: 11.8; Range: 11.5-14.5; Units: %; Status: F Test: PLATELET COUNT, AUTOMATED; Value: 175; Range: 150-450; Units: k/mm3; Status: F Lab Order: LIPASE; SPEC'11/23/16 09:46 Test: LIPASE; Value: 358; Range: 73-393; Units: U/L; Status: F Lab Order: Fingerstick Blood Sugar; SPEC'M 11/23/16 11:55 Test: BEDSIDE GLUCOSE; Value: 233; Range: 70-105; Abnormal: Above high normal; Units: MG/DL; Status: F Radiology Order: CT ABD & PELVIS: IV Contrast Only Test: CT ABD & PELVIS: IV Contrast Only REASON FOR EXAMINATION: Abdomen Pain; ; CLINICAL HISTORY: Abdominal pain.; TECHNIQUE: Multiple axial, sagittal and coronal CT images were obtained through the abdomen and pelvi; s after administration of intravenous contrast material.; COMMENTS:; Fluid-filled distended stomach.; The liver is mildly enlarged with decreased attenuation without mass or defect. There is no intra or; extrahepatic biliary ductal dilatation. The spleen is normal. The gallbladder is surgically absent. T; he pancreas is of normal contour and attenuation characteristics. There is no evidence of adrenal mas; s.; Both kidneys demonstrate prompt and equal nephrograms. The kidneys are normal in size, shape and conf; iguration. There is no evidence of renal or ureteral mass. No renal or ureteral calculi are identifie; d. There is no hydroureter or hydronephrosis.; No evidence for appendicitis. There is no bowel wall thickening. No evidence for small or large sophia; l obstruction. There is no evidence of abdominal ascites or lymphadenopathy.; There is no evidence of intrinsic or extrinsic bladder mass. There is no pelvic ascites or lymphadeno; angus. Distended urinary bladder.; Images of the lung bases show no evidence of pleural or parenchymal mass. There are no pleural effusi; ons.; The bony structures are free of lytic or blastic lesions.; IMPRESSION:; Fluid filled distended stomach suggestive of gastroparesis.; Distended urinary bladder suggestive of urinary retention.; Findings were not present on the prior exam on 09/17/2016.; Thank you for your kind referral of this patient.; ; Outcome: 03:38 Decision to Hospitalize by Provider. mm11 12:41 Patient left the ED. jrd Signatures: Dispatcher [employer] EDMS Margarita Joshi, Rohith Judd DO DO mm11 Jerri Cueva, RN RN Lexy Neumann RN RN sls1 Burak, Nikia, CLAY PREPARATION SUPERVISOR CLAY PREPARATION SUPERVISOR tmm1 Adelia Cueva gr2 Lindsay Neri, CLAY PREPARATION SUPERVISOR CLAY PREPARATION SUPERVISOR jrd Faith Maurer Nikkole,RN RN nn1 Stephani Henderson,RN RN [facility] Angélica Blankenship RN RN cf2 Mendez Macario, CLAY PREPARATION SUPERVISOR CLAY PREPARATION SUPERVISOR jmv Angely Pollock,KITTY RN tm5 Angélica Blankenship RN cf2 Corrections: (The following items were deleted from the chart) 01:50 01:39 General: Appears [place] [id number] Chart Complete MTDD
--- NOTE | 2016-11-25 13:43 | EDDOCDS ---
Physician Documentation [facility] Name: Anthony Love Age: 51 yrs Sex: Male : 1965 Arrival Date: 11/22/2016 Time: 22:21 Bed 21 Private MD: Tatyana Hooper M. Disposition: 11/23/16 03:38 Hospitalization ordered by Tonio Betancourt for Inpatient Admission. Preliminary diagnosis is Acute pancreatitis. - Bed requested for 4 [place]. - Status is Inpatient Admission. jrd - Condition is Stable. - Problem is an acute exacerbation. - Symptoms have improved. Historical: - Allergies: olives (Anaphylaxis); peanut butter (diarrhea); - Home Meds: 1. Lantus 100 unit/mL Sub-Q soln 50 unit nightly 2. Lipitor 40 mg Oral tab 1 tab once daily 3. lisinopril 10 mg oral tab 4. tramadol 50 mg Oral tab twice a day 5. albuterol sulfate 90 mcg/actuation Inhl HFAA 2 puffs every 4-6 hours 6. gabapentin 600 mg Oral tab 1 tab 3 times per day 7. omeprazole 40 mg Oral cpDR 1 cap once daily 8. aspirin 81 mg Oral tab 1 tab once daily 9. gemfibrozil 600 mg Oral tab 1 tab 2 times per day - PMHx: Diabetes - IDDM: uncontrolled; Hypertension; hyperlipidemia; Pancreatitis; - PSHx: none; - Social history: Smoking status: Patient states was never smoker of tobacco. No barriers to communication noted. - : The pt / caregiver states he / she is not on anticoagulants. Home medication list is obtained from the patient. - Exposure Risk Screening:: None identified. Vital Signs: 11/22 22:24 BP 154 / 103; Pulse 116; Resp 18 S; Temp 98.8(O); Pulse Ox 98% on R/A; Weight 78.93 kg gr2 / 174.01 lbs (R); Height 5 ft. 7 in. (170.18 cm) (R); Pain 5/10; 11/23 00:23 BP 133 / 87; Pulse 120; Resp 18; Temp 98.3; Pulse Ox 98% on R/A; Pain 10/10; nn1 00:32 BP 164 / 95 (auto/); cf2 00:35 Pulse 108 MON; Pulse Ox 99% ; cf2 01:02 BP 139 / 87 (auto/); cf2 01:02 Pulse 100 MON; Pulse Ox 94% ; cf2 01:17 BP 143 / 89 (auto/); cf2 01:17 Pulse 102 MON; Pulse Ox 95% ; cf2 01:32 BP 145 / 93 (auto/); cf2 01:32 Pulse 104 MON; Pulse Ox 98% ; cf2 01:47 BP 131 / 84 (auto/); cf2 01:47 Pulse 106 MON; Pulse Ox 95% ; cf2 02:02 BP 133 / 86 (auto/); kas2 02:02 Pulse 110 MON; Pulse Ox 96% ; kas2 02:53 BP 133 / 86; Pulse 107; Resp 18; Pulse Ox 99% ; Pain 10/10; kas2 03:05 BP 131 / 84; Pulse 98; Resp 20; Pulse Ox 99% on R/A; kas2 03:15 BP 132 / 85; Pulse 99; Pain 9/10; kas2 03:50 BP 128 / 82; Pulse 98; Resp 18; Temp 97.2(O); Pulse Ox 95% on R/A; kas2 05:17 BP 133 / 90 (auto/); kas2 05:17 Pulse 94 MON; Pulse Ox 96% ; kas2 06:21 BP 135 / 95 (auto/); kas2 06:21 Pulse 94 MON; Pulse Ox 97% ; kas2 06:24 Resp 20; Temp 97.9(O); kas2 07:13 Pulse 92 MON; Resp 18; Pulse Ox 96% on R/A; jjr 07:42 BP 127 / 81 (auto/); jjr 07:42 Pulse 94 MON; Resp 18; Pulse Ox 94% on R/A; jjr 11/22 22:24 Body Mass Index 27.25 (78.93 kg, 170.18 cm) gr2 MDM: 11/22 22:43 Fingerstick Blood Sugar Ordered. EDMS 11/23 00:32 ECG WITH READING ER PHYS+CARDIAG ordered. EDMS 00:35 Fingerstick Blood Sugar Ordered. EDMS 01:14 Ondansetron 4 mg IVP once ordered. mm11 01:14 Flamer Sealer/Pulse Ox/q 30 min VS ordered. mm11 01:14 IV Saline Lock ordered. mm11 01:14 Rhythm Strip to chart ordered. mm11 01:14 Undress patient appropriately for examination ordered. mm11 01:14 morphine 4 mg IVP every 30 minutes; Document pain score/vitals after each dose (Hold if mm11 SBP < 90mmHg) x2 ordered. 01:15 Basic Metabolic Profile Ordered. EDMS 01:15 CBC with Diff Ordered. EDMS 01:15 Cardiac Injury Profile Ordered. EDMS 01:15 Troponin Ordered. EDMS 01:15 Amylase Ordered. EDMS 01:15 Lipase Ordered. EDMS 01:15 Liver Profile Ordered. EDMS 01:15 Venous Blood Gas (large pea green tube on ice) Ordered. EDMS 01:15 Osmolality, Serum Ordered. EDMS 01:15 NOTHING BY MOUTH+DIET ordered. EDMS 01:24 Insulin Regular Human 5 units IVP once ordered. mm11 01:33 Financial registration complete. slh 01:44 Fingerstick Blood Sugar Reviewed. mm11 01:44 Fingerstick Blood Sugar Reviewed. mm11 01:44 Basic Metabolic Profile Reviewed. mm11 01:44 CBC with Diff Reviewed. mm11 01:44 Amylase Reviewed. mm11 01:44 Lipase Reviewed. mm11 01:44 Liver Profile Reviewed. mm11 01:44 Cardiac Injury Profile Reviewed. mm11 01:44 Troponin Reviewed. mm11 01:44 Venous Blood Gas (large pea green tube on ice) Reviewed. mm11 02:00 Basic Metabolic Profile Reviewed. mm11 02:00 Amylase Reviewed. mm11 02:00 Lipase Reviewed. mm11 02:00 Liver Profile Reviewed. mm11 02:00 Osmolality, Serum Reviewed. mm11 02:00 Cardiac Injury Profile Reviewed. mm11 02:00 Troponin Reviewed. mm11 02:07 Accucheck hourly ordered. mm11 02:08 CT ABD & PELVIS: IV Contrast Only Ordered. EDMS 03:02 [facility] Payment Agreement was scanned into [employer] and attached to record. slh 03:08 Fingerstick Blood Sugar Ordered. EDMS 03:14 Fingerstick Blood Sugar Reviewed. mm11 04:13 CT ABD & PELVIS: IV Contrast Only Reviewed. mm11 04:19 Admission / Observation Status ordered. EDMS 04:19 NPO DIET ordered. EDMS 04:32 TRIGLYCERIDES LEVEL Ordered. EDMS 07:13 morphine 2 mg IVP once ordered. jjr 07:40 COMPLETE COMPHRENSIVE METABOLI Ordered. EDMS 07:40 COMPLETE BLOOD COUNT Ordered. EDMS 07:40 LIPASE Ordered. EDMS 07:40 BASIC METABOLIC PROFILE Ordered. EDMS 09:14 T-Sheet-- Draft Copy was scanned into [employer] and attached to record. 12:05 Fingerstick Blood Sugar Ordered. EDMS 14:35 ECG/EKG was scanned into [employer] and attached to record. Point of Care Testing: Blood Glucose: 11/22 22:36 Blood Glucose: 510 mg/dL; tm5 11/23 00:23 Blood Glucose: 459 mg/dL; nn1 02:53 Blood Glucose: 328 mg/dL; kas2 Ranges: Administered Medications: 01:37 Drug: Ondansetron 4 mg [ondansetron HCl 2 mg/mL intravenous solution (2 mL)] Route: kas2 IVP; Site: right forearm; 01:39 Drug: morphine 4 mg [morphine 4 mg/mL intravenous cartridge (1 mL)] Route: IVP; Site: [facility] right forearm; 02:53 Follow up: BP 133 / 86; Pulse 107 bpm; Resp 18 bpm; Pulse Ox 99% ; Pain 10/10 Adult; kas2 Response: No Adverse Reaction; No significant change. 01:52 Drug: Insulin Regular Human 5 units [insulin regular human 100 unit/mL injection kas2 solution (0.05 mL)] {Co-Signature: cf2 (Angélica Blankenship RN).} Route: IVP; Site: right forearm; 02:59 Drug: morphine 4 mg [morphine 4 mg/mL intravenous cartridge (1 mL)] Route: IVP; Site: [facility] right forearm; 03:15 Follow up: BP 132 / 85; Pulse 99 bpm; Pain 9/10 Adult [facility] 03:15 Follow up: Response: No Adverse Reaction; Pain is decreased [facility] 07:13 Drug: morphine 2 mg [morphine 2 mg/mL intravenous cartridge (1 mL)] Route: IVP; Site: jr right forearm; 07:43 Follow up: Response: No significant change. jjr Signatures: Dispatcher [employer] EDMS Margarita Joshi, Reg Reg gb Rohith Clements, DO mm11 Jerri Cueva RN RN jjr Neri Montoya, PRODUCTION TECHNOLOGIST PRODUCTION TECHNOLOGIST jrd Faith Maurer Steven, RN RN sa Matice, Tonya, RN RN [facility] Stephani Henderson RN [facility] Angélica Blankenship RN cf2 The chart was reviewed and I authenticate all verbal orders and agree with the evaluation and treatment provided.Corrections: (The following items were deleted from the chart) 04:32 04:21 TRIGLYCERIDES LEVEL ordered. EDMS EDMS Attachments: 03:02 [facility] Payment Agreement [facility] 09:14 T-Sheet-- Draft Copy gb 14:35 ECG/EKG gb Chart Complete MTDD
--- NOTE | 2016-11-25 14:56 | DSES ---
DATE OF ADMISSION: 11/23/2016 DATE OF DISCHARGE: 11/25/2016 PRIMARY CARE PROVIDER: Tatyana Hooper NP [facility] ATTENDING PHYSICIAN: Dr. Mina Duncan. HISTORY: 51-year-old male presented for sharp abdominal pain, nausea, vomiting for three days. He had an elevated amylase and lipase, however had a negative CT scan. Admitting diagnosis included suspected pancreatitis in nonalcoholic user with history of elevated triglyceride levels. Patient's LFT's remain stable. Electrolytes have remained stable. Patient was fluid resuscitated, provider with as needed medication, had his diet slowly advanced and abdominal pain and has improved and resolved. He denies further diarrhea, nausea or vomiting. Denied chest pain, headache, blurred vision, dizziness or shortness of breath. PHYSICAL EXAMINATION: On physical examination today heart rate 90, temperature 97.7, blood pressure 140.7-0, oxygen saturation 95% on room air. HEENT: Neck is supple without lymphadenopathy. CARDIOVASCULAR: Heart rhythm irregular. PULMONARY: Lungs clear to auscultation bilaterally. ABDOMEN: Soft and non-tender, with positive bowel sounds in all four quadrants. EXTREMITIES: Bilateral lower extremities without any edema. NEURO: Patient is alert and oriented times three. ASSESSMENT: 1. Abdominal pain with increased amylase, lipase, negative for pancreatitis on CT abdomen and pelvis, perhaps a presumed gastroenteritis. GI panel as not obtained on admission. 2. History of diabetes. 3. History of hyperlipidemia. 4. History of hypertension. 5. History of chronic pain. 6. Noted gastroparesis on CT abdomen and pelvis. 7. Gastroesophageal reflux disease. 8. Elevated triglycerides. PLAN: Patient will be discharged home. Diet is as tolerated. Activities as tolerated. Follow up with primary care provider within the next 5-7 days. MEDICATIONS ARE FOLLOWS: - albuterol HFA as needed shortness of breath - aspirin 81 mg daily - Lipitor 40 mg by mouth at bedtime - Neurontin 600 mg by mouth three times a day - gemfibrozil 600 mg by mouth twice a day - Lantus 50 units subcutaneously at bedtime - lisinopril 10 mg by mouth daily - omeprazole 40 mg by mouth daily - tramadol 50 mg by mouth twice a day Patient is discharged in stable and satisfactory condition with no further questions at the time of discharge.
== END 2016-11-25 10:48 | disposition home or self-care (01) | DRG 420 ==
LOC: M ED 22:21 → M ED INP 11-23 04:15 → M MSPAV 11-23 12:39
PROVIDERS: ADMIT Internal Medicine; ATTEND Family Medicine
DX: E11.00 Type 2 diabetes mellitus with hyperosmolarity without nonketotic hyperglycemic-hyperosmolar coma (NKHHC) (principal); K31.84 Gastroparesis; I69.351 Hemiplegia and hemiparesis following cerebral infarction affecting right dominant side; E11.43 Type 2 diabetes mellitus with diabetic autonomic (poly)neuropathy; E55.9 Vitamin D deficiency, unspecified; K52.9 Noninfective gastroenteritis and colitis, unspecified; E11.65 Type 2 diabetes mellitus with hyperglycemia; I10 Essential (primary) hypertension; I25.10 Atherosclerotic heart disease of native coronary artery without angina pectoris; E78.5 Hyperlipidemia, unspecified; J45.909 Unspecified asthma, uncomplicated; E78.1 Pure hyperglyceridemia; Z79.4 Long term (current) use of insulin; Z79.82 Long term (current) use of aspirin; Z79.899 Other long term (current) drug therapy

== ENCOUNTER 2016-12-04 01:13 | Emergency (ER) | payer OTHER ==
[~2016-12-04 01:13] MED LIST changes: +ASPI81TA7 PO; +GABA600T PO; +GEMF600T PO; +LISI10TA4 PO; +OMEP40CA2 PO; +TRAM50TA2 PO
[2016-12-04 02:01] LABS: BASO # 0.1 K/mm3 (0.0-0.2); BASO % 1.6 % (0.0-1.0); EOS # 0.4 K/mm3 (0.0-0.50); EOS % 4.3 % (0.0-3.0); LARGE UNSTAINED CELL # 0.2 K/mm3 (0.0-0.4); LARGE UNSTAINED CELL % 2.4 % (0.0-4.0); LYMPH # 4.1 K/mm3 (1.5-4.5); LYMPH % 43.8 % (24.0-44.0); MEAN CORPUSCULAR HGB CONC 34.3 g/dl (32.0-36.5); MEAN CORPUSCULAR VOLUME 81.6 fl (80.0-96.0); MONO # 0.4 K/mm3 (0.0-0.8); MONO % 4.6 % (0.0-5.0); NEUTROPHILS # 3.9 K/mm3 (1.8-7.7); NEUTROPHILS % 43.4 % (36.0-66.0); PLATELET COUNT, AUTOMATED 232 k/mm3 (150-450); RED CELL DISTRIBUTION WIDTH 12.8 % (11.5-14.5); WHITE BLOOD COUNT 8.9 K/mm3 (4.0-10.0)
[2016-12-04 02:32] LABS: ANION GAP 9 MEQ/L (8-16); BLOOD UREA NITROGEN 11 MG/DL (7-18); CALCIUM LEVEL 8.7 MG/DL (8.5-10.1); CARBON DIOXIDE LEVEL 26 MEQ/L (21-32); CHLORIDE LEVEL 101 MEQ/L (98-107); CREATININE FOR GFR 1.04 MG/DL (0.70-1.30); GLOMERULAR FILTRATION RATE > 60.0 (>56); GLUCOSE, FASTING 372 MG/DL (70-105); POTASSIUM SERUM 3.7 MEQ/L (3.5-5.1); SODIUM LEVEL 136 MEQ/L (136-145)
[2016-12-04] MEDS ORDERED: GI COCKTAIL 50ML BTL(HYOSCYAMINE/MAALOX/LIDOCAINE VISCOUS)(1:3:1) As Ordered ONE (03:01)
[2016-12-04] MEDS ORDERED: PANTOPRAZOLE 40MG INJ (PROTONIX) (C9113) As Ordered ONE (03:53)
[2016-12-04] MEDS ORDERED: SUCRALFATE 1 GM TAB As Ordered ONE (03:53)
--- NOTE | 2016-12-04 04:29 | REP ---
Clinical: Shortness of breath. Technique: PA and lateral views. Comparison: 11/01/2016. Findings: Mediastinum and cardiac silhouette are normal. Trace basilar atelectasis cannot be excluded. No focal consolidation, effusion, or pneumothorax. Skeletal structures intact. Impression: Trace basilar atelectasis. Signed by Tariq Mosqueda MD 12/04/2016 04:21 A
--- NOTE | 2016-12-04 07:01 | EDDOCDS ---
Nurse's Notes [facility] Name: Anthony Love Age: 51 yrs Sex: Male : 1965 Arrival Date: 12/04/2016 Time: 01:13 Bed 14 Private MD: Diagnosis: Chest pain, unspecified-likely GERD Presentation: 12/04 01:20 Presenting complaint: EMS states: chest pain starting approx 1 hour ago, described as mlc sharp, radiates down left arm. pt reports heartburn at this time. FS 429. 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 Adult Sepsis Screening: The patient does not have new or worsening altered mentation. Patient's respiratory rate is less than 22. Systolic blood pressure is greater than 100. Patient has a qSOFA score of 0- Negative Sepsis Screen. Suicide/Homicide risk assessment- the patient denies having any suicidal and/or homicidal ideations and does not present with any other emotional, behavioral or mental health complaints. Status: Patient is not a servicenow administrator developer or dependent. Transition of care: patient was not received from another setting of care. Care prior to arrival: Medications administered prior to arrival: ASA, NTG, IV initiated. 01:20 Acuity: JOESPH Level 3 mlc 01:20 Method Of Arrival: Ambulance mlc 01:28 Acuity level changed due to chest pain protocol. nov 04:28 Acuity: JOESPH Level 2 nov Triage Assessment: 01:26 General: Appears in no apparent distress, comfortable, Behavior is cooperative. Pain: mlc Location: anterior aspect of left upper chest and left breast Pain currently is 9 out of 10 on a pain scale. Pain does not radiate. HIV screening NA for this visit Offered previously. The patient is triaged at the bedside. See Assessment in Nurses Notes section of ED record. Neurological: Level of Consciousness is awake, alert, obeys commands, Oriented to person, place, time. Cardiovascular: Rhythm is sinus tachycardia Chest pain is described as Pain is 9 out of 10 on a pain scale. radiates Does not radiate. episodes are continuous began 1 hour prior to arrival. Respiratory: Airway is patent Respiratory effort is even, unlabored, Respiratory pattern is regular. Derm: Skin is pink, warm & dry. Historical: - Allergies: olives (Anaphylaxis); peanut butter (diarrhea); - Home Meds: 1. albuterol sulfate 90 mcg/actuation Inhl HFAA 2 puffs every 4-6 hours 2. aspirin 81 mg Oral tab 1 tab once daily 3. gabapentin 600 mg Oral tab 1 tab 3 times per day 4. Lantus 100 unit/mL Sub-Q soln 50 unit nightly 5. Lipitor 40 mg Oral tab 1 tab once daily 6. lisinopril 10 mg Oral tab 7. omeprazole 40 mg Oral cpDR 1 cap once daily 8. tramadol 50 mg Oral tab twice a day 9. gemfibrozil 600 mg Oral tab 1 tab 2 times per day - PMHx: Diabetes - IDDM: uncontrolled; hyperlipidemia; Hypertension; Pancreatitis; - PSHx: Lithotripsy; cyst removed from left kidney; - Social history: Smoking status: Patient states was never smoker of tobacco. No barriers to communication noted, The patient speaks fluent Austrian. - Family history: Not pertinent. - : The pt / caregiver states he / she is not on anticoagulants. Home medication list is obtained from the patient. - Exposure Risk Screening:: None identified. Screenin:28 Screening information is obtained from the patient. Fall risk: No risks identified. mlc Assistance ADL's: requires no assistance with activities of daily living. Abuse/DV Screen: The patient / caregiver reports he/she is: not in a situation that causes fear, pain or injury. Nutritional screening: No deficits noted. Advance Directives: Currently, there is a health care proxy, Emeli Love, and Christin Love, mother. There is no active DNR order. There is an active Power of Utility Forester, Emeli Love, and Cyndee Love, mother. home support is adequate. Assessment: 02:12 General: Appears to be sleeping. Cardiovascular: Capillary refill < 3 seconds. mgs Respiratory: Airway is patent Respiratory effort is even, unlabored, Respiratory pattern is regular, symmetrical. Derm: Skin is normal. 03:06 General: Appears in no apparent distress, Behavior is appropriate for age, cooperative. mgs Neurological: Level of Consciousness is awake, alert. Cardiovascular: Capillary refill < 3 seconds. Respiratory: Airway is patent Respiratory effort is even, unlabored, Respiratory pattern is regular, symmetrical. Derm: Skin is normal. 03:40 General: Appears in no apparent distress, Behavior is cooperative. Neurological: Level mgs of Consciousness is awake, alert. Cardiovascular: Capillary refill < 3 seconds. Respiratory: Airway is patent Respiratory effort is even, unlabored, Respiratory pattern is regular, symmetrical. Derm: Skin is normal. 04:22 General: Appears in no apparent distress, Behavior is appropriate for age, cooperative. mgs Pain: Location: chest Pain currently is 4 out of 10 on a pain scale. Neurological: Level of Consciousness is awake, alert. Cardiovascular: Capillary refill < 3 seconds Rhythm is sinus rhythm. Respiratory: Airway is patent Respiratory effort is even, unlabored, Respiratory pattern is regular, symmetrical. Derm: Skin is normal. 05:20 General: Appears to be sleeping. Cardiovascular: Capillary refill < 3 seconds. mgs Respiratory: Airway is patent Respiratory effort is even, unlabored, Respiratory pattern is regular, symmetrical. 05:54 General: Appears in no apparent distress, Behavior is appropriate for age, cooperative. mgs Pain: Location: chest Pain currently is 2 out of 10 on a pain scale. Neurological: Level of Consciousness is awake, alert. 05:54 Cardiovascular: Capillary refill < 3 seconds. Respiratory: Airway is patent Respiratory mgs effort is even, unlabored, Respiratory pattern is regular, symmetrical. Derm: Skin is normal. 06:58 General: Appears in no apparent distress, Behavior is appropriate for age, cooperative. mgs Pain:. Neurological: Level of Consciousness is awake, alert. Cardiovascular: Capillary refill < 3 seconds. Respiratory: Airway is patent Respiratory effort is even, unlabored, Respiratory pattern is regular, symmetrical. Derm: Skin is normal. Vital Signs: 01:24 BP 143 / 73 (auto/); mgs 01:24 BP 138 / 72 (auto/); mgs 01:26 BP 140 / 74; Pulse 108; Resp 16; Pulse Ox 95% on R/A; Weight 78.02 kg; Height 5 ft. 7 [facility] in. (170.18 cm); Pain 9/10; 01:32 Temp 98.4(TE); mgs 01:40 BP 143 / 81 (auto/); mgs 01:40 Pulse 98 MON; Pulse Ox 94% ; mgs 01:55 BP 136 / 81 (auto/); mgs 01:55 Pulse 96 MON; Pulse Ox 95% ; mgs 02:10 BP 135 / 79 (auto/); mgs 02:10 Pulse 90 MON; Pulse Ox 95% ; mgs 02:25 BP 130 / 77 (auto/); mgs 02:25 Pulse 88 MON; Pulse Ox 96% ; mgs 02:40 BP 134 / 81 (auto/); mgs 02:40 Pulse 86 MON; Pulse Ox 98% ; mgs 02:55 Pulse 84 MON; Pulse Ox 97% ; mgs 02:55 BP 127 / 79 (auto/); mgs 03:10 BP 131 / 82 (auto/); mgs 03:10 Pulse 82 MON; Pulse Ox 95% ; mgs 03:25 BP 124 / 78 (auto/); mgs 03:25 Pulse 90 MON; Pulse Ox 95% ; mgs 03:40 BP 134 / 82 (auto/); mgs 03:40 Pulse 88 MON; Pulse Ox 96% ; mgs 03:55 BP 125 / 78 (auto/); mgs 03:55 Pulse 86 MON; Pulse Ox 95% ; mgs 04:10 BP 121 / 77 (auto/); mgs 04:10 Pulse 82 MON; Pulse Ox 96% ; mgs 04:25 BP 115 / 76 (auto/); mgs 04:25 Pulse 82 MON; Pulse Ox 96% ; mgs 04:40 BP 114 / 73 (auto/); mgs 04:40 Pulse 82 MON; Pulse Ox 96% ; mgs 04:55 BP 116 / 75 (auto/); mgs 04:55 Pulse 84 MON; Pulse Ox 96% ; mgs 05:10 BP 106 / 66 (auto/); mgs 05:10 Pulse 80 MON; Pulse Ox 95% ; mgs 05:25 BP 108 / 69 (auto/); mgs 05:25 Pulse 88 MON; Pulse Ox 95% ; mgs 05:40 BP 105 / 67 (auto/); mgs 05:40 Pulse 82 MON; Pulse Ox 97% ; mgs 05:55 BP 118 / 72 (auto/); mgs 05:55 Pulse 82 MON; Pulse Ox 96% ; mgs 06:58 BP 123 / 74; Pulse 88; Resp 18; Temp 97.6(TE); Pulse Ox 97% on R/A; mgs 01:26 Body Mass Index 26.94 (78.02 kg, 170.18 cm) [facility] Vitals: 01:26 Log In Time N/A - ambulance arrival. [facility] ED Course: 01:18 Patient visited by Kj Mckeon, Proposal Writer. ml3 01:18 Patient moved to Waiting ml3 01:19 Patient moved to 14 ml3 01:22 Triage Initiated mlc 01:28 EKG done. (by ED staff). Reviewed by Rohith Clements DO. anca 01:29 Patient visited by Esperanza Brown PCA. anca 01:29 Pt greeted and oriented to ED. Patient advised of names of staff involved in care, anca location of call jha, wait times and NPO status. Patient has correct armband on for positive identification. Placed in gown. Bed in low position. Call light in reach. Side rails up X2. quality assurance monitor on. Pulse ox on. NIBP on. 01:30 Patient visited by Dania Pabon RN. mlc 01:32 Rohith Ndiaye RN is Primary Nurse. mgs 01:32 Basic Metabolic Profile Sent. mgs 01:32 CBC with Diff Sent. mgs 01:32 Cardiac Injury Profile Sent. mgs 01:32 Troponin Sent. mgs 01:32 Maintain field IV. Dressing intact. Good blood return noted. Site clean & dry. Gauge & mgs site: 20 gauge right forearm. 02:11 Rohith Clements DO is Attending Physician. mm11 02:11 Patient visited by Rohith Clements DO. mm11 02:20 Patient visited by Rohith Clements DO. mm11 02:22 Patient moved to Radiology trevon 02:37 Patient moved to 14 trevon 02:57 [facility] Payment Agreement was scanned into [employer] and attached to record. hs2 02:59 Patient name changed from Anthony\S\\S\Kate\S\ to Anthony\S\ \S\Kate. EDMS 03:02 Patient visited by Rohith Clements DO. mm11 03:09 Patient visited by Rohith Ndiaye RN. mgs 03:41 Patient visited by Rohith Ndiaye RN. mgs 04:23 Patient visited by Rohith Ndiaye RN. mgs 04:32 Chest, 2 View (pa\E\lat) Returned. EDMS 05:21 Patient visited by Rohith Ndiaye RN. mgs 05:58 Patient visited by Rohith Ndiaye RN. mgs 06:39 Patient visited by Rohith Clements DO. mm11 06:42 Tatyana Hooper FNP is Referral Physician. mm11 06:58 The patient / caregiver is instructed regarding the plan of care and ED course. mgs 06:58 Discontinued IV lock intact, bleeding controlled, pressure dressing applied, No mgs redness/swelling at site. No procedures done that require assistance. Administered Medications: 03:06 Drug: GI Cocktail - (Alum-Mag Hydroxide-Simeth Suspension 225 mg-200 mg-25 mg/5 mL 30 mgs ml, Lidocaine Liquid 2 % 10 ml, Hyoscyamine Liquid 10 ml) Route: PO; 03:58 Drug: pantoprazole 40 mg [pantoprazole 40 mg intravenous solution] Route: IV; Rate: mgs bolus; Site: right forearm; 04:04 Drug: Sucralfate 1 grams [sucralfate 1 gram tablet (1 tabs)] Route: PO; mgs Order Results: Lab Order: Basic Metabolic Profile; SPEC'M 12/04/16 01:31 Test: GLUCOSE, FASTING; Value: 372; Range: 70-105; Abnormal: Above high normal; Units: MG/DL; Status: F Test: BLOOD UREA NITROGEN; Value: 11; Range: 7-18; Units: MG/DL; Status: F Test: CREATININE FOR GFR; Value: 1.04; Range: 0.70-1.30; Units: MG/DL; Status: F Test: GLOMERULAR FILTRATION RATE; Value: > 60.0; Range: >56; Status: F Test: SODIUM LEVEL; Value: 136; Range: 136-145; Units: MEQ/L; Status: F Test: POTASSIUM SERUM; Value: 3.7; Range: 3.5-5.1; Units: MEQ/L; Status: F Test: CHLORIDE LEVEL; Value: 101; Range: 98-107; Units: MEQ/L; Status: F Test: CARBON DIOXIDE LEVEL; Value: 26; Range: 21-32; Units: MEQ/L; Status: F Test: ANION GAP; Value: 9; Range: 8-16; Units: MEQ/L; Status: F Test: CALCIUM LEVEL; Value: 8.7; Range: 8.5-10.1; Units: MG/DL; Status: F Test Note: ; Units are mL/min/1.73 m2 Chronic Kidney Disease Staging per NKF: Stage I & II GFR >=60 Normal to Mildly Decreased Stage III GFR 30-59 Moderately Decreased Stage IV GFR 15-29 Severely Decreased Stage V GFR <15 Very Little GFR Left ESRD GFR <15 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 Lab Order: CBC with Diff; SPEC'M 12/04/16 01:31 Test: WHITE BLOOD COUNT; Value: 8.9; Range: 4.0-10.0; Units: K/mm3; Status: F Test: RED BLOOD COUNT; Value: 4.63; Range: 4.30-6.10; Units: M/mm3; Status: F Test: HEMOGLOBIN; Value: 13.0; Range: 14.0-18.0; Abnormal: Below low normal; Units: g/dl; Status: F Test: HEMATOCRIT; Value: 37.8; Range: 42.0-52.0; Abnormal: Below low normal; Units: %; Status: F Test: MEAN CORPUSCULAR VOLUME; Value: 81.6; Range: 80.0-96.0; Units: fl; Status: F Test: MEAN CORPUSCULAR HEMOGLOBIN; Value: 28.0; Range: 27.0-33.0; Units: pg; Status: F Test: MEAN CORPUSCULAR HGB CONC; Value: 34.3; Range: 32.0-36.5; Units: g/dl; Status: F Test: RED CELL DISTRIBUTION WIDTH; Value: 12.8; Range: 11.5-14.5; Units: %; Status: F Test: PLATELET COUNT, AUTOMATED; Value: 232; Range: 150-450; Units: k/mm3; Status: F Test: NEUTROPHILS %; Value: 43.4; Range: 36.0-66.0; Units: %; Status: F Test: LYMPH %; Value: 43.8; Range: 24.0-44.0; Units: %; Status: F Test: MONO %; Value: 4.6; Range: 0.0-5.0; Units: %; Status: F Test: EOS %; Value: 4.3; Range: 0.0-3.0; Abnormal: Above high normal; Units: %; Status: F Test: BASO %; Value: 1.6; Range: 0.0-1.0; Abnormal: Above high normal; Units: %; Status: F Test: LARGE UNSTAINED CELL %; Value: 2.4; Range: 0.0-4.0; Units: %; Status: F Test: NEUTROPHILS #; Value: 3.9; Range: 1.8-7.7; Units: K/mm3; Status: F Test: LYMPH #; Value: 4.1; Range: 1.5-4.5; Units: K/mm3; Status: F Test: MONO #; Value: 0.4; Range: 0.0-0.8; Units: K/mm3; Status: F Test: EOS #; Value: 0.4; Range: 0.0-0.50; Units: K/mm3; Status: F Test: BASO #; Value: 0.1; Range: 0.0-0.2; Units: K/mm3; Status: F Test: LARGE UNSTAINED CELL #; Value: 0.2; Range: 0.0-0.4; Units: K/mm3; Status: F Lab Order: Cardiac Injury Profile; SPEC'M 12/04/16 01:31 Test: CPK CREATINE PHOSPHOKINASE; Value: 115; Range: 39-308; Units: U/L; Status: F Test: CK-MB VALUE MASS; Value: 1.6; Range: 0.0-3.6; Units: NG/ML; Status: F Test: MB/CK RELATIVE INDEX; Value: 1.39; Range: < OR =4; Status: F Test Note: ; DIAGNOSIS CRITERIA MMB ng/ml Relative Index (RI) NON-AMI < or = 5 N/A AVILES ZONE > 5 < or = 4 AMI > 5 > 4 Lab Order: Troponin; SPEC'M 12/04/16 01:31 Test: TROPONIN I; Value: < 0.02; Range: < 0.10; Units: NG/ML; Status: F Test Note: ; Troponin I Reference Interval for [place] LOCI: 99th Percentile= 0.00-0.045 ng/ml Risk Stratification: <= 0.10 ng/ml Decreased Risk for Adverse Clinical Events. 0.10-1.50 ng/ml Increased Risk for Adverse Clinical Events. Evaluation of additional criterion and/or repeat testing in 2-6 hours is suggested to rule out myocardial damage. >= 1.50 ng/ml Indicative of Myocardial Injury. Radiology Order: Chest, 2 View (pa\E\lat) Test: Chest, 2 View (pa\E\lat) REASON FOR EXAMINATION: Shortness of Breath; Clinical: Shortness of breath.; ; Technique: PA and lateral views.; ; Comparison: 11/01/2016.; ; Findings:; Mediastinum and cardiac silhouette are normal. Trace basilar atelectasis cannot; be excluded. No focal consolidation, effusion, or pneumothorax. Skeletal; structures intact.; ; Impression:; Trace basilar atelectasis.; ; ; Signed by; Tariq Mosqueda MD 12/04/2016 04:21 A; Outcome: 06:42 Discharge ordered by Provider. mm11 06:58 Discharge Assessment: Patient awake, alert and oriented x 3. No cognitive and/or mgs functional deficits noted. Patient verbalized understanding of disposition instructions. patient administered narcotics - no. The following High Risk Discharge criteria are identified: None. Discharged to home ambulatory. Condition: stable. Discharge instructions given to patient, Instructed on discharge instructions, follow up and referral plans. Demonstrated understanding of instructions, Pt was receptive of discharge instructions/ teaching. No special radiology studies were completed. Property sent home with patient. 07:00 Patient left the ED. mgs Signatures: Dispatcher [employer] EDMS Danielle Barrera RN RN jan Bartlett, Floyd fab Lopresti, Mary-Elizabeth, Proposal Writer Unit ml3 Rohith Clements, DO mm11 Esperanza Brown, CLERK OF WORKS CLERK OF WORKS Dania Lyon RN RN mlc Sheldon, Matthew, RN RN mgs Cindy Arias, Reg Reg hs2 MTDD
--- NOTE | 2016-12-04 07:01 | EDDOCDS ---
Physician Documentation [facility] Name: Anthony Love Age: 51 yrs Sex: Male : 1965 Arrival Date: 12/04/2016 Time: 01:13 Bed 14 Private MD: Disposition: 12/04/16 06:42 Discharged to Home/Self Care. Impression: Chest pain, unspecified - likely GERD. - Condition is Stable. - Discharge Instructions: Nonspecific Chest Pain, Gastroesophageal Reflux Disease, Adult, Nonspecific Chest Pain, [id number]. - Prescriptions for Carafate 1 gram Oral Tablet - take 1 tablet by ORAL route 4 times per day take on an empty stomach, beginning on waking and last dose at bedtime; 100 tablet. - Medication Reconciliation, Local Pharmacy Hours form. - Follow up: Tatyana Hooper FNP; When: 2 - 3 days; Reason: Continuance of care. - Problem is an acute exacerbation. - Symptoms have improved. Historical: - Allergies: olives (Anaphylaxis); peanut butter (diarrhea); - Home Meds: 1. albuterol sulfate 90 mcg/actuation Inhl HFAA 2 puffs every 4-6 hours 2. aspirin 81 mg Oral tab 1 tab once daily 3. gabapentin 600 mg Oral tab 1 tab 3 times per day 4. Lantus 100 unit/mL Sub-Q soln 50 unit nightly 5. Lipitor 40 mg Oral tab 1 tab once daily 6. lisinopril 10 mg Oral tab 7. omeprazole 40 mg Oral cpDR 1 cap once daily 8. tramadol 50 mg Oral tab twice a day 9. gemfibrozil 600 mg Oral tab 1 tab 2 times per day - PMHx: Diabetes - IDDM: uncontrolled; hyperlipidemia; Hypertension; Pancreatitis; - PSHx: Lithotripsy; cyst removed from left kidney; - Social history: Smoking status: Patient states was never smoker of tobacco. No barriers to communication noted, The patient speaks fluent Spanish. - Family history: Not pertinent. - : The pt / caregiver states he / she is not on anticoagulants. Home medication list is obtained from the patient. - Exposure Risk Screening:: None identified. Vital Signs: 12/04 01:24 BP 143 / 73 (auto/); mgs 01:24 BP 138 / 72 (auto/); mgs 01:26 BP 140 / 74; Pulse 108; Resp 16; Pulse Ox 95% on R/A; Weight 78.02 kg / 172 lbs; Height mlc 5 ft. 7 in. (170.18 cm); Pain 9/10; 01:32 Temp 98.4(TE); mgs 01:40 BP 143 / 81 (auto/); mgs 01:40 Pulse 98 MON; Pulse Ox 94% ; mgs 01:55 BP 136 / 81 (auto/); mgs 01:55 Pulse 96 MON; Pulse Ox 95% ; mgs 02:10 BP 135 / 79 (auto/); mgs 02:10 Pulse 90 MON; Pulse Ox 95% ; mgs 02:25 BP 130 / 77 (auto/); mgs 02:25 Pulse 88 MON; Pulse Ox 96% ; mgs 02:40 BP 134 / 81 (auto/); mgs 02:40 Pulse 86 MON; Pulse Ox 98% ; mgs 02:55 Pulse 84 MON; Pulse Ox 97% ; mgs 02:55 BP 127 / 79 (auto/); mgs 03:10 BP 131 / 82 (auto/); mgs 03:10 Pulse 82 MON; Pulse Ox 95% ; mgs 03:25 BP 124 / 78 (auto/); mgs 03:25 Pulse 90 MON; Pulse Ox 95% ; mgs 03:40 BP 134 / 82 (auto/); mgs 03:40 Pulse 88 MON; Pulse Ox 96% ; mgs 03:55 BP 125 / 78 (auto/); mgs 03:55 Pulse 86 MON; Pulse Ox 95% ; mgs 04:10 BP 121 / 77 (auto/); mgs 04:10 Pulse 82 MON; Pulse Ox 96% ; mgs 04:25 BP 115 / 76 (auto/); mgs 04:25 Pulse 82 MON; Pulse Ox 96% ; mgs 04:40 BP 114 / 73 (auto/); mgs 04:40 Pulse 82 MON; Pulse Ox 96% ; mgs 04:55 BP 116 / 75 (auto/); mgs 04:55 Pulse 84 MON; Pulse Ox 96% ; mgs 05:10 BP 106 / 66 (auto/); mgs 05:10 Pulse 80 MON; Pulse Ox 95% ; mgs 05:25 BP 108 / 69 (auto/); mgs 05:25 Pulse 88 MON; Pulse Ox 95% ; mgs 05:40 BP 105 / 67 (auto/); mgs 05:40 Pulse 82 MON; Pulse Ox 97% ; mgs 05:55 BP 118 / 72 (auto/); mgs 05:55 Pulse 82 MON; Pulse Ox 96% ; mgs 06:58 BP 123 / 74; Pulse 88; Resp 18; Temp 97.6(TE); Pulse Ox 97% on R/A; mgs 01:26 Body Mass Index 26.94 (78.02 kg, 170.18 cm) mlc MDM: 01:23 ECG WITH READING ER PHYS+CARDIAG ordered. EDMS 01:25 Stationary Engineer Apprentice/Pulse Ox/q 30 min VS ordered. nov 04:25 IV Saline Lock ordered. nov 04: Rhythm Strip to chart ordered. nov 04: Undress patient appropriately for examination ordered. nov 04:26 Basic Metabolic Profile Ordered. EDMS 01:26 CBC with Diff Ordered. EDMS 01:26 Cardiac Injury Profile Ordered. EDMS 01:26 Troponin Ordered. EDMS 02:20 CBC with Diff Reviewed. mm11 02:20 GI Cocktail - (Alum-Mag Hydroxide-Simeth 30 ml, Lidocaine 10 ml, Hyoscyamine 10 ml) PO mm11 once; Pre-mixed 50mL unit dose ordered. 02:22 Chest, 2 View (pa\E\lat) Ordered. EDMS 02:38 Financial registration complete. pm4 02:57 [facility] Payment Agreement was scanned into [employer] and attached to record. hs2 03:46 Sucralfate 1 grams PO once ordered. mm11 03:46 pantoprazole 40 mg IV at bolus once ordered. mm11 03:58 Basic Metabolic Profile Reviewed. mm11 03:58 Cardiac Injury Profile Reviewed. mm11 03:58 Troponin Reviewed. mm11 06:40 Chest, 2 View (pa\E\lat) Reviewed. mm11 Administered Medications: 03:06 Drug: GI Cocktail - (Alum-Mag Hydroxide-Simeth Suspension 225 mg-200 mg-25 mg/5 mL 30 mgs ml, Lidocaine Liquid 2 % 10 ml, Hyoscyamine Liquid 10 ml) Route: PO; 03:58 Drug: pantoprazole 40 mg [pantoprazole 40 mg intravenous solution] Route: IV; Rate: mgs bolus; Site: right forearm; 04:04 Drug: Sucralfate 1 grams [sucralfate 1 gram tablet (1 tabs)] Route: PO; mgs Signatures: Dispatcher [employer] EDDanielle Ivey RN RN jan Maynard, Matthew, DO mm11 Dania Pabon RN RN mlc Sheldon, Matthew, RN RN mgs Cindy Arias, Reg Reg hs2 Rickey Chance, Reg Reg pm4 The chart was reviewed and I authenticate all verbal orders and agree with the evaluation and treatment provided.Attachments: 02:57 [facility] Payment Agreement hs2 MTDD
--- NOTE | 2016-12-04 20:47 | ECGEPIP ---
Stationary ECG Study [facility] - ED Test Date: 2016-12-04 Pat Name: CASEY GLASS Department: Room: - Gender: M Explosive Man: GarcíaB: 1965 Requested By: RAMONA Neal Order Number: [id number] Reading MD: Jewels Galaviz Measurements Intervals [place] Rate: 108 P: 47 MS: 132 QRS: 14 QRSD: 89 T: 60 QT: 325 QTc: 437 Interpretive Statements SINUS TACHYCARDIA POSSIBLE LEFT ATRIAL ENLARGEMENT NONSPECIFIC T-WAVE ABNORMALITY ABNORMAL RHYTHM ECG Electronically Signed On 12-04-2016 20:47:11 EST by Jewels Galaviz
--- NOTE | 2016-12-06 08:01 | EDDOCDS ---
Physician Documentation [facility] Name: Anthony Love Age: 51 yrs Sex: Male : 1965 Arrival Date: 12/04/2016 Time: 01:13 Bed 14 Private MD: Disposition: 12/04/16 06:42 Discharged to Home/Self Care. Impression: Chest pain, unspecified - likely GERD. - Condition is Stable. - Discharge Instructions: Nonspecific Chest Pain, Gastroesophageal Reflux Disease, Adult, Nonspecific Chest Pain, [id number]. - Prescriptions for Carafate 1 gram Oral Tablet - take 1 tablet by ORAL route 4 times per day take on an empty stomach, beginning on waking and last dose at bedtime; 100 tablet. - Medication Reconciliation, Local Pharmacy Hours form. - Follow up: Tatyana Hooper FNP; When: 2 - 3 days; Reason: Continuance of care. - Problem is an acute exacerbation. - Symptoms have improved. Historical: - Allergies: olives (Anaphylaxis); peanut butter (diarrhea); - Home Meds: 1. albuterol sulfate 90 mcg/actuation Inhl HFAA 2 puffs every 4-6 hours 2. aspirin 81 mg Oral tab 1 tab once daily 3. gabapentin 600 mg Oral tab 1 tab 3 times per day 4. Lantus 100 unit/mL Sub-Q soln 50 unit nightly 5. Lipitor 40 mg Oral tab 1 tab once daily 6. lisinopril 10 mg Oral tab 7. omeprazole 40 mg Oral cpDR 1 cap once daily 8. tramadol 50 mg Oral tab twice a day 9. gemfibrozil 600 mg Oral tab 1 tab 2 times per day - PMHx: Diabetes - IDDM: uncontrolled; hyperlipidemia; Hypertension; Pancreatitis; - PSHx: Lithotripsy; cyst removed from left kidney; - Social history: Smoking status: Patient states was never smoker of tobacco. No barriers to communication noted, The patient speaks fluent Greek. - Family history: Not pertinent. - : The pt / caregiver states he / she is not on anticoagulants. Home medication list is obtained from the patient. - Exposure Risk Screening:: None identified. Vital Signs: 12/04 01:24 BP 143 / 73 (auto/); mgs 01:24 BP 138 / 72 (auto/); mgs 01:26 BP 140 / 74; Pulse 108; Resp 16; Pulse Ox 95% on R/A; Weight 78.02 kg / 172 lbs; Height mlc 5 ft. 7 in. (170.18 cm); Pain 9/10; 01:32 Temp 98.4(TE); mgs 01:40 BP 143 / 81 (auto/); mgs 01:40 Pulse 98 MON; Pulse Ox 94% ; mgs 01:55 BP 136 / 81 (auto/); mgs 01:55 Pulse 96 MON; Pulse Ox 95% ; mgs 02:10 BP 135 / 79 (auto/); mgs 02:10 Pulse 90 MON; Pulse Ox 95% ; mgs 02:25 BP 130 / 77 (auto/); mgs 02:25 Pulse 88 MON; Pulse Ox 96% ; mgs 02:40 BP 134 / 81 (auto/); mgs 02:40 Pulse 86 MON; Pulse Ox 98% ; mgs 02:55 Pulse 84 MON; Pulse Ox 97% ; mgs 02:55 BP 127 / 79 (auto/); mgs 03:10 BP 131 / 82 (auto/); mgs 03:10 Pulse 82 MON; Pulse Ox 95% ; mgs 03:25 BP 124 / 78 (auto/); mgs 03:25 Pulse 90 MON; Pulse Ox 95% ; mgs 03:40 BP 134 / 82 (auto/); mgs 03:40 Pulse 88 MON; Pulse Ox 96% ; mgs 03:55 BP 125 / 78 (auto/); mgs 03:55 Pulse 86 MON; Pulse Ox 95% ; mgs 04:10 BP 121 / 77 (auto/); mgs 04:10 Pulse 82 MON; Pulse Ox 96% ; mgs 04:25 BP 115 / 76 (auto/); mgs 04:25 Pulse 82 MON; Pulse Ox 96% ; mgs 04:40 BP 114 / 73 (auto/); mgs 04:40 Pulse 82 MON; Pulse Ox 96% ; mgs 04:55 BP 116 / 75 (auto/); mgs 04:55 Pulse 84 MON; Pulse Ox 96% ; mgs 05:10 BP 106 / 66 (auto/); mgs 05:10 Pulse 80 MON; Pulse Ox 95% ; mgs 05:25 BP 108 / 69 (auto/); mgs 05:25 Pulse 88 MON; Pulse Ox 95% ; mgs 05:40 BP 105 / 67 (auto/); mgs 05:40 Pulse 82 MON; Pulse Ox 97% ; mgs 05:55 BP 118 / 72 (auto/); mgs 05:55 Pulse 82 MON; Pulse Ox 96% ; mgs 06:58 BP 123 / 74; Pulse 88; Resp 18; Temp 97.6(TE); Pulse Ox 97% on R/A; mgs 01:26 Body Mass Index 26.94 (78.02 kg, 170.18 cm) mlc MDM: 01:23 ECG WITH READING ER PHYS+CARDIAG ordered. EDMS 01:25 Foot Orthopedist/Pulse Ox/q 30 min VS ordered. nov 01:25 IV Saline Lock ordered. nov 04: Rhythm Strip to chart ordered. nov 04: Undress patient appropriately for examination ordered. nov 04:26 Basic Metabolic Profile Ordered. EDMS 01:26 CBC with Diff Ordered. EDMS 01:26 Cardiac Injury Profile Ordered. EDMS 01:26 Troponin Ordered. EDMS 02:20 CBC with Diff Reviewed. mm11 02:20 GI Cocktail - (Alum-Mag Hydroxide-Simeth 30 ml, Lidocaine 10 ml, Hyoscyamine 10 ml) PO mm11 once; Pre-mixed 50mL unit dose ordered. 02:22 Chest, 2 View (pa\E\lat) Ordered. EDMS 02:38 Financial registration complete. pm4 02:57 REPLACED BY [facility] Payment Agreement was scanned into [employer] and attached to record. hs2 03:46 Sucralfate 1 grams PO once ordered. mm11 03:46 pantoprazole 40 mg IV at bolus once ordered. mm11 03:58 Basic Metabolic Profile Reviewed. mm11 03:58 Cardiac Injury Profile Reviewed. mm11 03:58 Troponin Reviewed. mm11 06:40 Chest, 2 View (pa\E\lat) Reviewed. mm11 12:24 T-Sheet-- Draft Copy was scanned into [employer] and attached to record. gb 12:25 ECG/EKG was scanned into [employer] and attached to record. gb 12:25 Trend VS was scanned into [employer] and attached to record. gb Administered Medications: 03:06 Drug: GI Cocktail - (Alum-Mag Hydroxide-Simeth Suspension 225 mg-200 mg-25 mg/5 mL 30 mgs ml, Lidocaine Liquid 2 % 10 ml, Hyoscyamine Liquid 10 ml) Route: PO; 03:58 Drug: pantoprazole 40 mg [pantoprazole 40 mg intravenous solution] Route: IV; Rate: mgs bolus; Site: right forearm; 04:04 Drug: Sucralfate 1 grams [sucralfate 1 gram tablet (1 tabs)] Route: PO; mgs Signatures: Dispatcher [employer] Danielle Calvillo RN RN jan Barnhardt, Gloria, Reg Reg gb Rohith Clements, DO mm11 Dania Pabon RN RN [facility] [place] Rohith Ndiaye RN RN mgs Cindy Arias, Reg Reg hs2 Rickey Chance, Reg Reg pm4 The chart was reviewed and I authenticate all verbal orders and agree with the evaluation and treatment provided.Attachments: 02:57 REPLACED BY [facility] Payment Agreement hs2 12:24 T-Sheet-- Draft Copy gb 12:25 ECG/EKG gb Chart Complete MTDD
--- NOTE | 2016-12-06 08:01 | EDDOCDS ---
Physician Documentation [facility] Name: Anthony Love Age: 51 yrs Sex: Male : 1965 Arrival Date: 12/04/2016 Time: 01:13 Bed 14 Private MD: Disposition: 12/04/16 06:42 Discharged to Home/Self Care. Impression: Chest pain, unspecified - likely GERD. - Condition is Stable. - Discharge Instructions: Nonspecific Chest Pain, Gastroesophageal Reflux Disease, Adult, Nonspecific Chest Pain, [id number]. - Prescriptions for Carafate 1 gram Oral Tablet - take 1 tablet by ORAL route 4 times per day take on an empty stomach, beginning on waking and last dose at bedtime; 100 tablet. - Medication Reconciliation, Local Pharmacy Hours form. - Follow up: Tatyana Hooper FNP; When: 2 - 3 days; Reason: Continuance of care. - Problem is an acute exacerbation. - Symptoms have improved. Historical: - Allergies: olives (Anaphylaxis); peanut butter (diarrhea); - Home Meds: 1. albuterol sulfate 90 mcg/actuation Inhl HFAA 2 puffs every 4-6 hours 2. aspirin 81 mg Oral tab 1 tab once daily 3. gabapentin 600 mg Oral tab 1 tab 3 times per day 4. Lantus 100 unit/mL Sub-Q soln 50 unit nightly 5. Lipitor 40 mg Oral tab 1 tab once daily 6. lisinopril 10 mg Oral tab 7. omeprazole 40 mg Oral cpDR 1 cap once daily 8. tramadol 50 mg Oral tab twice a day 9. gemfibrozil 600 mg Oral tab 1 tab 2 times per day - PMHx: Diabetes - IDDM: uncontrolled; hyperlipidemia; Hypertension; Pancreatitis; - PSHx: Lithotripsy; cyst removed from left kidney; - Social history: Smoking status: Patient states was never smoker of tobacco. No barriers to communication noted, The patient speaks fluent Khmer. - Family history: Not pertinent. - : The pt / caregiver states he / she is not on anticoagulants. Home medication list is obtained from the patient. - Exposure Risk Screening:: None identified. Vital Signs: 12/04 01:24 BP 143 / 73 (auto/); mgs 01:24 BP 138 / 72 (auto/); mgs 01:26 BP 140 / 74; Pulse 108; Resp 16; Pulse Ox 95% on R/A; Weight 78.02 kg / 172 lbs; Height mlc 5 ft. 7 in. (170.18 cm); Pain 9/10; 01:32 Temp 98.4(TE); mgs 01:40 BP 143 / 81 (auto/); mgs 01:40 Pulse 98 MON; Pulse Ox 94% ; mgs 01:55 BP 136 / 81 (auto/); mgs 01:55 Pulse 96 MON; Pulse Ox 95% ; mgs 02:10 BP 135 / 79 (auto/); mgs 02:10 Pulse 90 MON; Pulse Ox 95% ; mgs 02:25 BP 130 / 77 (auto/); mgs 02:25 Pulse 88 MON; Pulse Ox 96% ; mgs 02:40 BP 134 / 81 (auto/); mgs 02:40 Pulse 86 MON; Pulse Ox 98% ; mgs 02:55 Pulse 84 MON; Pulse Ox 97% ; mgs 02:55 BP 127 / 79 (auto/); mgs 03:10 BP 131 / 82 (auto/); mgs 03:10 Pulse 82 MON; Pulse Ox 95% ; mgs 03:25 BP 124 / 78 (auto/); mgs 03:25 Pulse 90 MON; Pulse Ox 95% ; mgs 03:40 BP 134 / 82 (auto/); mgs 03:40 Pulse 88 MON; Pulse Ox 96% ; mgs 03:55 BP 125 / 78 (auto/); mgs 03:55 Pulse 86 MON; Pulse Ox 95% ; mgs 04:10 BP 121 / 77 (auto/); mgs 04:10 Pulse 82 MON; Pulse Ox 96% ; mgs 04:25 BP 115 / 76 (auto/); mgs 04:25 Pulse 82 MON; Pulse Ox 96% ; mgs 04:40 BP 114 / 73 (auto/); mgs 04:40 Pulse 82 MON; Pulse Ox 96% ; mgs 04:55 BP 116 / 75 (auto/); mgs 04:55 Pulse 84 MON; Pulse Ox 96% ; mgs 05:10 BP 106 / 66 (auto/); mgs 05:10 Pulse 80 MON; Pulse Ox 95% ; mgs 05:25 BP 108 / 69 (auto/); mgs 05:25 Pulse 88 MON; Pulse Ox 95% ; mgs 05:40 BP 105 / 67 (auto/); mgs 05:40 Pulse 82 MON; Pulse Ox 97% ; mgs 05:55 BP 118 / 72 (auto/); mgs 05:55 Pulse 82 MON; Pulse Ox 96% ; mgs 06:58 BP 123 / 74; Pulse 88; Resp 18; Temp 97.6(TE); Pulse Ox 97% on R/A; mgs 01:26 Body Mass Index 26.94 (78.02 kg, 170.18 cm) mlc MDM: 01:23 ECG WITH READING ER PHYS+CARDIAG ordered. EDMS 01:25 Reading Recovery Teacher/Pulse Ox/q 30 min VS ordered. nov 01:25 IV Saline Lock ordered. nov 04: Rhythm Strip to chart ordered. nov 04: Undress patient appropriately for examination ordered. nov 04:26 Basic Metabolic Profile Ordered. EDMS 01:26 CBC with Diff Ordered. EDMS 01:26 Cardiac Injury Profile Ordered. EDMS 01:26 Troponin Ordered. EDMS 02:20 CBC with Diff Reviewed. mm11 02:20 GI Cocktail - (Alum-Mag Hydroxide-Simeth 30 ml, Lidocaine 10 ml, Hyoscyamine 10 ml) PO mm11 once; Pre-mixed 50mL unit dose ordered. 02:22 Chest, 2 View (pa\E\lat) Ordered. EDMS 02:38 Financial registration complete. pm4 02:57 [facility] Payment Agreement was scanned into [employer] and attached to record. hs2 03:46 Sucralfate 1 grams PO once ordered. mm11 03:46 pantoprazole 40 mg IV at bolus once ordered. mm11 03:58 Basic Metabolic Profile Reviewed. mm11 03:58 Cardiac Injury Profile Reviewed. mm11 03:58 Troponin Reviewed. mm11 06:40 Chest, 2 View (pa\E\lat) Reviewed. mm11 12:24 T-Sheet-- Draft Copy was scanned into [employer] and attached to record. gb 12:25 ECG/EKG was scanned into [employer] and attached to record. gb 12:25 Trend VS was scanned into [employer] and attached to record. gb Administered Medications: 03:06 Drug: GI Cocktail - (Alum-Mag Hydroxide-Simeth Suspension 225 mg-200 mg-25 mg/5 mL 30 mgs ml, Lidocaine Liquid 2 % 10 ml, Hyoscyamine Liquid 10 ml) Route: PO; 03:58 Drug: pantoprazole 40 mg [pantoprazole 40 mg intravenous solution] Route: IV; Rate: mgs bolus; Site: right forearm; 04:04 Drug: Sucralfate 1 grams [sucralfate 1 gram tablet (1 tabs)] Route: PO; mgs Signatures: Dispatcher [employer] Danielle Calvillo RN RN jan Barnhardt, Gloria, Reg Reg gb Rohith Clements, DO mm11 Dania Pabon RN RN [facility] [place] Rohith Ndiaye RN RN mgs Cindy Arias, Reg Reg hs2 Rickey Chance, Reg Reg pm4 The chart was reviewed and I authenticate all verbal orders and agree with the evaluation and treatment provided.Attachments: 02:57 [facility] Payment Agreement hs2 12:24 T-Sheet-- Draft Copy gb 12:25 ECG/EKG gb Chart Complete MTDD
--- NOTE | 2016-12-06 08:01 | EDDOCDS ---
Nurse's Notes [facility] Name: Anthony Love Age: 51 yrs Sex: Male : 1965 Arrival Date: 12/04/2016 Time: 01:13 Bed 14 Private MD: Diagnosis: Chest pain, unspecified-likely GERD Presentation: 12/04 01:20 Presenting complaint: EMS states: chest pain starting approx 1 hour ago, described as mlc sharp, radiates down left arm. pt reports heartburn at this time. FS 429. 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 Adult Sepsis Screening: The patient does not have new or worsening altered mentation. Patient's respiratory rate is less than 22. Systolic blood pressure is greater than 100. Patient has a qSOFA score of 0- Negative Sepsis Screen. Suicide/Homicide risk assessment- the patient denies having any suicidal and/or homicidal ideations and does not present with any other emotional, behavioral or mental health complaints. 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 Transition of care: patient was not received from another setting of care. Care prior to arrival: Medications administered prior to arrival: ASA, NTG, IV initiated. 01:20 Acuity: JOESPH Level 3 mlc 01:20 Method Of Arrival: Ambulance mlc 01:28 Acuity level changed due to chest pain protocol. nov 04:28 Acuity: JOESPH Level 2 nov Triage Assessment: 01:26 General: Appears in no apparent distress, comfortable, Behavior is cooperative. Pain: mlc Location: anterior aspect of left upper chest and left breast Pain currently is 9 out of 10 on a pain scale. Pain does not radiate. HIV screening NA for this visit Offered previously. The patient is triaged at the bedside. See Assessment in Nurses Notes section of ED record. Neurological: Level of Consciousness is awake, alert, obeys commands, Oriented to person, place, time. Cardiovascular: Rhythm is sinus tachycardia Chest pain is described as Pain is 9 out of 10 on a pain scale. radiates Does not radiate. episodes are continuous began 1 hour prior to arrival. Respiratory: Airway is patent Respiratory effort is even, unlabored, Respiratory pattern is regular. Derm: Skin is pink, warm & dry. Historical: - Allergies: olives (Anaphylaxis); peanut butter (diarrhea); - Home Meds: 1. albuterol sulfate 90 mcg/actuation Inhl HFAA 2 puffs every 4-6 hours 2. aspirin 81 mg Oral tab 1 tab once daily 3. gabapentin 600 mg Oral tab 1 tab 3 times per day 4. Lantus 100 unit/mL Sub-Q soln 50 unit nightly 5. Lipitor 40 mg Oral tab 1 tab once daily 6. lisinopril 10 mg Oral tab 7. omeprazole 40 mg Oral cpDR 1 cap once daily 8. tramadol 50 mg Oral tab twice a day 9. gemfibrozil 600 mg Oral tab 1 tab 2 times per day - PMHx: Diabetes - IDDM: uncontrolled; hyperlipidemia; Hypertension; Pancreatitis; - PSHx: Lithotripsy; cyst removed from left kidney; - Social history: Smoking status: Patient states was never smoker of tobacco. No barriers to communication noted, The patient speaks fluent Palestinian. - Family history: Not pertinent. - : The pt / caregiver states he / she is not on anticoagulants. Home medication list is obtained from the patient. - Exposure Risk Screening:: None identified. Screenin:28 Screening information is obtained from the patient. Fall risk: No risks identified. mlc Assistance ADL's: requires no assistance with activities of daily living. Abuse/DV Screen: The patient / caregiver reports he/she is: not in a situation that causes fear, pain or injury. Nutritional screening: No deficits noted. Advance Directives: Currently, there is a health care proxy, Emeli Love, and Christin Love, mother. There is no active DNR order. There is an active Power of Customer Service Officer, Emeli Love, and Cyndee Love, mother. home support is adequate. Assessment: 02:12 General: Appears to be sleeping. Cardiovascular: Capillary refill < 3 seconds. mgs Respiratory: Airway is patent Respiratory effort is even, unlabored, Respiratory pattern is regular, symmetrical. Derm: Skin is normal. 03:06 General: Appears in no apparent distress, Behavior is appropriate for age, cooperative. mgs Neurological: Level of Consciousness is awake, alert. Cardiovascular: Capillary refill < 3 seconds. Respiratory: Airway is patent Respiratory effort is even, unlabored, Respiratory pattern is regular, symmetrical. Derm: Skin is normal. 03:40 General: Appears in no apparent distress, Behavior is cooperative. Neurological: Level mgs of Consciousness is awake, alert. Cardiovascular: Capillary refill < 3 seconds. Respiratory: Airway is patent Respiratory effort is even, unlabored, Respiratory pattern is regular, symmetrical. Derm: Skin is normal. 04:22 General: Appears in no apparent distress, Behavior is appropriate for age, cooperative. mgs Pain: Location: chest Pain currently is 4 out of 10 on a pain scale. Neurological: Level of Consciousness is awake, alert. Cardiovascular: Capillary refill < 3 seconds Rhythm is sinus rhythm. Respiratory: Airway is patent Respiratory effort is even, unlabored, Respiratory pattern is regular, symmetrical. Derm: Skin is normal. 05:20 General: Appears to be sleeping. Cardiovascular: Capillary refill < 3 seconds. mgs Respiratory: Airway is patent Respiratory effort is even, unlabored, Respiratory pattern is regular, symmetrical. 05:54 General: Appears in no apparent distress, Behavior is appropriate for age, cooperative. mgs Pain: Location: chest Pain currently is 2 out of 10 on a pain scale. Neurological: Level of Consciousness is awake, alert. 05:54 Cardiovascular: Capillary refill < 3 seconds. Respiratory: Airway is patent Respiratory mgs effort is even, unlabored, Respiratory pattern is regular, symmetrical. Derm: Skin is normal. 06:58 General: Appears in no apparent distress, Behavior is appropriate for age, cooperative. mgs Pain:. Neurological: Level of Consciousness is awake, alert. Cardiovascular: Capillary refill < 3 seconds. Respiratory: Airway is patent Respiratory effort is even, unlabored, Respiratory pattern is regular, symmetrical. Derm: Skin is normal. Vital Signs: 01:24 BP 143 / 73 (auto/); mgs 01:24 BP 138 / 72 (auto/); mgs 01:26 BP 140 / 74; Pulse 108; Resp 16; Pulse Ox 95% on R/A; Weight 78.02 kg; Height 5 ft. 7 [facility] (170.18 cm); Pain 9/10; 01:32 Temp 98.4(TE); mgs 01:40 BP 143 / 81 (auto/); mgs 01:40 Pulse 98 MON; Pulse Ox 94% ; mgs 01:55 BP 136 / 81 (auto/); mgs 01:55 Pulse 96 MON; Pulse Ox 95% ; mgs 02:10 BP 135 / 79 (auto/); mgs 02:10 Pulse 90 MON; Pulse Ox 95% ; mgs 02:25 BP 130 / 77 (auto/); mgs 02:25 Pulse 88 MON; Pulse Ox 96% ; mgs 02:40 BP 134 / 81 (auto/); mgs 02:40 Pulse 86 MON; Pulse Ox 98% ; mgs 02:55 Pulse 84 MON; Pulse Ox 97% ; mgs 02:55 BP 127 / 79 (auto/); mgs 03:10 BP 131 / 82 (auto/); mgs 03:10 Pulse 82 MON; Pulse Ox 95% ; mgs 03:25 BP 124 / 78 (auto/); mgs 03:25 Pulse 90 MON; Pulse Ox 95% ; mgs 03:40 BP 134 / 82 (auto/); mgs 03:40 Pulse 88 MON; Pulse Ox 96% ; mgs 03:55 BP 125 / 78 (auto/); mgs 03:55 Pulse 86 MON; Pulse Ox 95% ; mgs 04:10 BP 121 / 77 (auto/); mgs 04:10 Pulse 82 MON; Pulse Ox 96% ; mgs 04:25 BP 115 / 76 (auto/); mgs 04:25 Pulse 82 MON; Pulse Ox 96% ; mgs 04:40 BP 114 / 73 (auto/); mgs 04:40 Pulse 82 MON; Pulse Ox 96% ; mgs 04:55 BP 116 / 75 (auto/); mgs 04:55 Pulse 84 MON; Pulse Ox 96% ; mgs 05:10 BP 106 / 66 (auto/); mgs 05:10 Pulse 80 MON; Pulse Ox 95% ; mgs 05:25 BP 108 / 69 (auto/); mgs 05:25 Pulse 88 MON; Pulse Ox 95% ; mgs 05:40 BP 105 / 67 (auto/); mgs 05:40 Pulse 82 MON; Pulse Ox 97% ; mgs 05:55 BP 118 / 72 (auto/); mgs 05:55 Pulse 82 MON; Pulse Ox 96% ; mgs 06:58 BP 123 / 74; Pulse 88; Resp 18; Temp 97.6(TE); Pulse Ox 97% on R/A; mgs 01:26 Body Mass Index 26.94 (78.02 kg, 170.18 cm) [facility]: 01:26 Log In Time N/A - ambulance [place] [facility] Course: 01:18 Patient visited by Kj Mckeon, Technology Sales Specialist. ml3 01:18 Patient moved to Waiting ml3 01:19 Patient moved to 14 ml3 01:22 Triage Initiated mlc 01:28 EKG done. (by ED staff). Reviewed by Ramona Clements DO. anca 01:29 Patient visited by Esperanza Brown PCA. anca 01:29 Pt greeted and oriented to ED. Patient advised of names of staff involved in care, anca location of call jha, wait times and NPO status. Patient has correct armband on for positive identification. Placed in gown. Bed in low position. Call light in reach. Side rails up X2. catcher plug on. Pulse ox on. NIBP on. 01:30 Patient visited by Dania Pabon RN. mlc 01:32 Ramona Ndiaye RN is Primary Nurse. mgs 01:32 Basic Metabolic Profile Sent. mgs 01:32 CBC with Diff Sent. mgs 01:32 Cardiac Injury Profile Sent. mgs 01:32 Troponin Sent. mgs 01:32 Maintain field IV. Dressing intact. Good blood return noted. Site clean & dry. Gauge & mgs site: 20 gauge right forearm. 02:11 Ramona Clements DO is Attending Physician. mm11 02:11 Patient visited by Ramona Clements DO. mm11 02:20 Patient visited by Ramona Clements DO. mm11 02:22 Patient moved to Radiology trevon 02:37 Patient moved to 14 trevon 02:57 [facility] Payment Agreement was scanned into [employer]ince[employer] and attached to record. hs2 02:59 Patient name changed from Anthony\S\\S\Kate\S\ to Anthony\S\ \S\Kate. EDMS 03:02 Patient visited by Ramona Clements DO. mm11 03:09 Patient visited by Ramona Ndiaye RN. mgs 03:41 Patient visited by Ramona Ndiaye RN. mgs 04:23 Patient visited by Ramona Ndiaye RN. mgs 04:32 Chest, 2 View (pa\E\lat) Returned. EDMS 05:21 Patient visited by Ramona Ndiaye RN. mgs 05:58 Patient visited by Ramona Ndiaye RN. mgs 06:39 Patient visited by Ramona Clements DO. mm11 06:42 Tatyana Hooper FNP is Referral Physician. mm11 06:58 The patient / caregiver is instructed regarding the plan of care and ED course. mgs 06:58 Discontinued IV lock intact, bleeding controlled, pressure dressing applied, No mgs redness/swelling at site. No procedures done that require assistance. 12:24 T-Sheet-- Draft Copy was scanned into Quincee and attached to record. gb 12:25 ECG/EKG was scanned into [employer] and attached to record. gb 12:25 Trend VS was scanned into [employer] and attached to record. gb 21:23 EKG-ADULT Returned. EDMS Administered Medications: 03:06 Drug: GI Cocktail - (Alum-Mag Hydroxide-Simeth Suspension 225 mg-200 mg-25 mg/5 mL 30 mgs ml, Lidocaine Liquid 2 % 10 ml, Hyoscyamine Liquid 10 ml) Route: PO; 03:58 Drug: pantoprazole 40 mg [pantoprazole 40 mg intravenous solution] Route: IV; Rate: mgs bolus; Site: right forearm; 04:04 Drug: Sucralfate 1 grams [sucralfate 1 gram tablet (1 tabs)] Route: PO; mgs Attachments: 12:25 Trend VS gb Order Results: Lab Order: Basic Metabolic Profile; SPEC'M 12/04/16 01:31 Test: GLUCOSE, FASTING; Value: 372; Range: 70-105; Abnormal: Above high normal; Units: MG/DL; Status: F Test: BLOOD UREA NITROGEN; Value: 11; Range: 7-18; Units: MG/DL; Status: F Test: CREATININE FOR GFR; Value: 1.04; Range: 0.70-1.30; Units: MG/DL; Status: F Test: GLOMERULAR FILTRATION RATE; Value: > 60.0; Range: >56; Status: F Test: SODIUM LEVEL; Value: 136; Range: 136-145; Units: MEQ/L; Status: F Test: POTASSIUM SERUM; Value: 3.7; Range: 3.5-5.1; Units: MEQ/L; Status: F Test: CHLORIDE LEVEL; Value: 101; Range: 98-107; Units: MEQ/L; Status: F Test: CARBON DIOXIDE LEVEL; Value: 26; Range: 21-32; Units: MEQ/L; Status: F Test: ANION GAP; Value: 9; Range: 8-16; Units: MEQ/L; Status: F Test: CALCIUM LEVEL; Value: 8.7; Range: 8.5-10.1; Units: MG/DL; Status: F Test Note: ; Units are mL/min/1.73 m2 Chronic Kidney Disease Staging per NKF: Stage I & II GFR >=60 Normal to Mildly Decreased Stage III GFR 30-59 Moderately Decreased Stage IV GFR 15-29 Severely Decreased Stage V GFR <15 Very Little GFR Left ESRD GFR <15 on MAKEUP SALES CONSULTANT Lab Order: CBC with Diff; SPEC'M 12/04/16 01:31 Test: WHITE BLOOD COUNT; Value: 8.9; Range: 4.0-10.0; Units: K/mm3; Status: F Test: RED BLOOD COUNT; Value: 4.63; Range: 4.30-6.10; Units: M/mm3; Status: F Test: HEMOGLOBIN; Value: 13.0; Range: 14.0-18.0; Abnormal: Below low normal; Units: g/dl; Status: F Test: HEMATOCRIT; Value: 37.8; Range: 42.0-52.0; Abnormal: Below low normal; Units: %; Status: F Test: MEAN CORPUSCULAR VOLUME; Value: 81.6; Range: 80.0-96.0; Units: fl; Status: F Test: MEAN CORPUSCULAR HEMOGLOBIN; Value: 28.0; Range: 27.0-33.0; Units: pg; Status: F Test: MEAN CORPUSCULAR HGB CONC; Value: 34.3; Range: 32.0-36.5; Units: g/dl; Status: F Test: RED CELL DISTRIBUTION WIDTH; Value: 12.8; Range: 11.5-14.5; Units: %; Status: F Test: PLATELET COUNT, AUTOMATED; Value: 232; Range: 150-450; Units: k/mm3; Status: F Test: NEUTROPHILS %; Value: 43.4; Range: 36.0-66.0; Units: %; Status: F Test: LYMPH %; Value: 43.8; Range: 24.0-44.0; Units: %; Status: F Test: MONO %; Value: 4.6; Range: 0.0-5.0; Units: %; Status: F Test: EOS %; Value: 4.3; Range: 0.0-3.0; Abnormal: Above high normal; Units: %; Status: F Test: BASO %; Value: 1.6; Range: 0.0-1.0; Abnormal: Above high normal; Units: %; Status: F Test: LARGE UNSTAINED CELL %; Value: 2.4; Range: 0.0-4.0; Units: %; Status: F Test: NEUTROPHILS #; Value: 3.9; Range: 1.8-7.7; Units: K/mm3; Status: F Test: LYMPH #; Value: 4.1; Range: 1.5-4.5; Units: K/mm3; Status: F Test: MONO #; Value: 0.4; Range: 0.0-0.8; Units: K/mm3; Status: F Test: EOS #; Value: 0.4; Range: 0.0-0.50; Units: K/mm3; Status: F Test: BASO #; Value: 0.1; Range: 0.0-0.2; Units: K/mm3; Status: F Test: LARGE UNSTAINED CELL #; Value: 0.2; Range: 0.0-0.4; Units: K/mm3; Status: F Lab Order: Cardiac Injury Profile; SPEC'M 12/04/16 01:31 Test: CPK CREATINE PHOSPHOKINASE; Value: 115; Range: 39-308; Units: U/L; Status: F Test: CK-MB VALUE MASS; Value: 1.6; Range: 0.0-3.6; Units: NG/ML; Status: F Test: MB/CK RELATIVE INDEX; Value: 1.39; Range: < OR =4; Status: F Test Note: ; DIAGNOSIS CRITERIA MMB ng/ml Relative Index (RI) NON-AMI < or = 5 N/A AVILES ZONE > 5 < or = 4 AMI > 5 > 4 Lab Order: Troponin; SPEC'M 12/04/16 01:31 Test: TROPONIN I; Value: < 0.02; Range: < 0.10; Units: NG/ML; Status: F Test Note: ; Troponin I Reference Interval for [employer] [place] LOCI: 99th Percentile= 0.00-0.045 ng/ml Risk Stratification: <= 0.10 ng/ml Decreased Risk for Adverse Clinical Events. 0.10-1.50 ng/ml Increased Risk for Adverse Clinical Events. Evaluation of additional criterion and/or repeat testing in 2-6 hours is suggested to rule out myocardial damage. >= 1.50 ng/ml Indicative of Myocardial Injury. 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; : 1965 Requested By: RAMONA Neal; Order Number: [id number] Reading MD: Jewels Galaviz; Measurements; Intervals [place]; Rate: 108 P: 47; IN: 132 QRS: 14; QRSD: 89 T: 60; QT: 325; QTc: 437; Interpretive Statements; SINUS TACHYCARDIA; POSSIBLE LEFT ATRIAL ENLARGEMENT; NONSPECIFIC T-WAVE ABNORMALITY; ABNORMAL RHYTHM ECG; ; Electronically Signed On 12-04-2016 20:47:11 EST by Jewels Galaviz; Radiology Order: Chest, 2 View (pa\E\lat) Test: Chest, 2 View (pa\E\lat) REASON FOR EXAMINATION: Shortness of Breath; Clinical: Shortness of breath.; ; Technique: PA and lateral views.; ; Comparison: 11/01/2016.; ; Findings:; Mediastinum and cardiac silhouette are normal. Trace basilar atelectasis cannot; be excluded. No focal consolidation, effusion, or pneumothorax. Skeletal; structures intact.; ; Impression:; Trace basilar atelectasis.; ; ; Signed by; Tariq Mosqueda MD 12/04/2016 04:21 A; Outcome: 06:42 Discharge ordered by Provider. mm11 06:58 Discharge Assessment: Patient awake, alert and oriented x 3. No cognitive and/or mgs functional deficits noted. Patient verbalized understanding of disposition instructions. patient administered narcotics - no. The following High Risk Discharge criteria are identified: None. Discharged to home ambulatory. Condition: stable. Discharge instructions given to patient, Instructed on discharge instructions, follow up and referral plans. Demonstrated understanding of instructions, Pt was receptive of discharge instructions/ teaching. No special radiology studies were completed. Property sent home with patient. 07:00 Patient left the ED. s Signatures: Dispatcher [employer] EDMS Danielle Barrera, RN RN Robert Bennett Gloria, Reg Reg gb Mike, Kj, Technology Sales Specialist Unit ml3 Ramona Clements, DO DO mm11 Esperanza Brown, SKI TECHNICIAN SKI TECHNICIAN Dania Lyon RN RN mlc Sheldon, Matthew, RN RN mgCindy Holliday, Reg Reg hs2 Chart Complete MTDD
== END 2016-12-04 07:00 | disposition home or self-care (01) ==
LOC: M ED 01:13
DX: R07.89 Other chest pain (principal); E11.65 Type 2 diabetes mellitus with hyperglycemia; E78.5 Hyperlipidemia, unspecified; I10 Essential (primary) hypertension; K86.1 Other chronic pancreatitis; Z79.4 Long term (current) use of insulin; Z79.899 Other long term (current) drug therapy; Z79.82 Long term (current) use of aspirin; Z79.51 Long term (current) use of inhaled steroids; Z91.018 Allergy to other foods; Z91.010 Allergy to peanuts
CPT/HCPCS: 36415; 71020; 80048; 82550; 82553; 85025; 93005; 93041; 96374; 99284; C9113

== ENCOUNTER 2016-12-10 09:01 | Inpatient (IN) | payer OTHER ==
[~2016-12-10] VITALS: Ht 170.2 cm; Wt 82.7 kg
[2016-12-10] MEDS: OMEPRAZOLE 20 MG CAP PO SCH (09:00)
[2016-12-10] MEDS: ASPIRIN 81 MG ENTERIC TAB PO SCH (09:00)
[2016-12-10] MEDS ORDERED: ONDANSETRON 4MG/2ML VIAL (J2405) As Ordered ONE (10:10)
[2016-12-10 10:18] LABS: BASO % 0.4 % (0.0-1.0); EOS # 0.2 K/mm3 (0.0-0.50); EOS % 1.4 % (0.0-3.0); LARGE UNSTAINED CELL # 0.2 K/mm3 (0.0-0.4); LARGE UNSTAINED CELL % 1.2 % (0.0-4.0); LYMPH # 1.9 K/mm3 (1.5-4.5); LYMPH % 13.6 % (24.0-44.0); MEAN CORPUSCULAR HEMOGLOBIN 28.1 pg (27.0-33.0); MEAN CORPUSCULAR HGB CONC 33.6 g/dl (32.0-36.5); MEAN CORPUSCULAR VOLUME 83.5 fl (80.0-96.0); MONO # 0.6 K/mm3 (0.0-0.8); MONO % 4.8 % (0.0-5.0); NEUTROPHILS # 10.3 K/mm3 (1.8-7.7); NEUTROPHILS % 78.6 % (36.0-66.0); PLATELET COUNT, AUTOMATED 267 k/mm3 (150-450); RED CELL DISTRIBUTION WIDTH 12.4 % (11.5-14.5); WHITE BLOOD COUNT 13.1 K/mm3 (4.0-10.0)
[2016-12-10 10:41] LABS: ALBUMIN 3.7 GM/DL (3.2-5.2); ALBUMIN/GLOBULIN RATIO 0.74 (1.00-1.93); ALKALINE PHOSPHATASE 63 U/L (45-117); ALT/SGPT 28 U/L (12-78); AMYLASE 73 U/L (25-115); ANION GAP 9 MEQ/L (8-16); AST/SGOT 21 U/L (15-37); BILIRUBIN,DIRECT < 0.1 MG/DL (0.0-0.2); BILIRUBIN,TOTAL 0.6 MG/DL (0.2-1.0); BLOOD UREA NITROGEN 19 MG/DL (7-18); CALCIUM LEVEL 9.3 MG/DL (8.5-10.1); CARBON DIOXIDE LEVEL 26 MEQ/L (21-32); CHLORIDE LEVEL 98 MEQ/L (98-107); CREATININE FOR GFR 1.56 MG/DL (0.70-1.30); GLOMERULAR FILTRATION RATE 50.4 (>56); POTASSIUM SERUM 4.5 MEQ/L (3.5-5.1); SODIUM LEVEL 133 MEQ/L (136-145); TOTAL PROTEIN 8.7 GM/DL (6.4-8.2)
[2016-12-10 10:44] LABS: ABG BASE EXCESS -2.9 (-2.0-2.0); ABG DEVICE NASAL CANN; ABG PARTIAL PRESSURE CO2 38.9 mmHg (35.0-45.0); ABG PARTIAL PRESSURE O2 89.8 mmHg (75.0-100.0); ABG TOTAL CO2 23.2 MEQ/L (22.0-29.0)
[2016-12-10 10:48] LABS: GLUCOSE, FASTING 475 MG/DL (70-105)
--- NOTE | 2016-12-10 10:55 | REP ---
Portable chest x-ray: Sitting AP view. History: Flu-like symptoms. Comparison chest x-ray December 04, 2016. Findings: The lungs are symmetrically aerated and free of infiltrate. Pleural angles are sharp. Heart size is normal. Pulmonary vasculature is not increased. No significant bony abnormality is seen. Impression: No active disease. Signed by See Camacho MD 12/10/2016 02:33 P
[2016-12-10] MEDS ORDERED: FENO1CAP2 PO (11:04)
[2016-12-10] MEDS ORDERED: DRIS50002 PO (11:04)
[2016-12-10] MEDS ORDERED: ISOVUE-370 76% 100ML VIAL (Q9967) As Ordered ONE (11:19)
--- NOTE | 2016-12-10 12:25 | REP ---
CT ABDOMEN/PELVIS WITH CONTRAST: 12/10/2016. Clinical history: Generalized abdominal pain. Diabetic. Comparison: CT 11/23/2016. Technique: No oral contrast given. Bolus of 75 ml Isovue 370 with scanning through the abdomen and pelvis with both coronal and sagittal reconstructions. CT abdomen: Lung bases show minor dependent atelectatic change lower lung zones but were without infiltrate, effusion, nodule or mass. Heart is not enlarged. There is no pericardial thickening or effusion. No definite hiatal hernia. The liver, spleen and adrenal glands are without mass. There is no hepatomegaly, splenomegaly, ascites, biliary dilatation or focal hepatic mass. Clips from prior cholecystectomy are noted. Kidneys show function without obstruction, stone or mass. Proximal small bowel loops of the jejunum shows slight dilatation filled with fluid but no inflammatory changes in the mesentery. Most small bowel loops are fluid filled and the colon is also fluid filled but not abnormally dilated. Appendix is seen and normal without inflammatory changes or stone. There is no definite colitis or diverticulitis. The mid to distal small bowel loops are of normal caliber. Some fluid filled. No mesenteric fluid, edema or adenopathy. The aorta is without aneurysm. No periaortic or retroperitoneal pathologic sized lymphadenopathy is noted but one mesenteric nodule about 10.7 mm without other masses or nodes. Lung window review of all CT abdomen and pelvis slices shows no perforation or free air. CT bone windows demonstrate lumbar and lower thoracic spine and posterior elements without acute finding and the visualized ribs intact. CT pelvis. The bony hips show minor degenerative changes with no evidence of AVN or fracture. The iliac wings, sacroiliac joints and sacrum without acute finding although there is sclerosis along the margins of the upper sacrum, right greater than left as a chronic change. Nothing acute. There is no renal, ureteral or bladder stone. Bladder shows no wall thickening or mass. Distal small bowel loops with some fluid within but no dilatation. Distal left colon, sigmoid and rectum fluid-filled without colitis, diverticulitis, stricture or mass. No ventral or inguinal hernia. Impression: 1. Findings consistent with gastroenteritis with fluid-filled colon and small bowel loops. Some dilatation of the proximal jejunum but other loops with normal caliber. No definite colitis or diverticulitis. Appendix seen and normal. 2. There is no ascites, free air or significant adenopathy. There was one 10.7 mm node in the mesentery. All other nodes smaller and unremarkable. 3. Status post cholecystectomy with the liver, spleen, adrenal glands, pancreas and kidneys unremarkable. Signed by Carlos Hernández MD 12/10/2016 04:22 P
--- NOTE | 2016-12-10 13:13 | HPEPDOC ---
Medical History and Physical Date of Admission 12/10/16 History and Physical ATTENDING: Dr. Duncan PCP: Hilda Hooper NP CC: N/V HPI: 51yoM with a past medical history significant for IDDM, HTN, HLD who reported to ED with 2 day h/o N/V associated with generalized abdominal pain, diarrhea and chills. Feels weak. Denies any BLACKWELL, CP, SOB, cough, palpitations, or changes in bladder habits. [place] recent travel, denies recent sick contacts. Upon presentation to the hospital the patient was found to have GI panel positive for Norovirus, thus the hospitalist team was consulted. PMHx: IDDM asthma HTN CVA with rt sided weakness, ambulates with cane CAD HLD Vitamin D Def PPN GERD\Chronic LBP H/O pancreatitis PSHX: cholecystectomy ORIF RLE as child cyst drained left kidney 05/19 SOCHX: Resides in: [place] Marital Status: Kids: 5 Employment: unemployed Tobacco use: denies ETOH:denies Illicit Drugs: Denies Recent travel: denies Advanced directives: denies FAMHX: Mother: Alive, well Father: Alive, well Siblings: Alive, well Children: Alive, well Unexpected deaths due to medical reasons: None. ROS: As noted in HPI, otherwise 11pt ROS of systems reviewed and unremarkable PE: GEN: 51yoM, appears stated age. Well-nourished, well developed. No acute distress. Alert and oriented x 3. Pleasant, interactive. HEENT: Normocephalic, atraumatic. Pupils are equal, round, and reactive to light. Extraocular movements are intact. No nystagmus appreciated. Sclera are nonicteric. Conjunctiva without injection. Nose midline. Nasal turbinates without bogginess. EACs both patent BL. No facial asymmetry. Moist mucous membranes. Dentition fair. Pharynx pink and moist, no cobblestoning. Neck supple , trachea midline. No lymphadenopathy or thyromegaly appreciated. CHEST: Regular rate and rhythm, +S1, +S2 LUNGS: Clear to auscultation bilaterally. No wheezes, rales, or rhonchi. Breathing appears symmetric and easy. Patient is speaking in full sentences. No accessory muscle use. ABD: Round, soft, Mildly tender RUQ, LUQ, non-distended. +Bowel sounds throughout. No rebound or guarding. No costovertebral angle tenderness. EXT: Pulses 2+ bilaterally dorsalis pedis and radial. No lower extremity edema appreciated. SKIN: [place], dry, warm. Capillary refill <2sec. No rashes. NEURO: Alert and oriented x 3. Cranial nerves III-XII are intact. No focal deficits appreciated. CXR: NAD CT: 1. Findings consistent with gastroenteritis with fluid-filled colon and small bowel loops. Some dilatation of the proximal jejunum but other loops with normal caliber. No definite colitis or diverticulitis. Appendix seen and normal. 2. There is no ascites, free air or significant adenopathy. There was one 10.7 mm node in the mesentery. All other nodes smaller and unremarkable. 3. Status post cholecystectomy with the liver, spleen, adrenal glands, pancreas and kidneys unremarkable. BLOOD CULTURES: x 1 pending. Flu neg. LA 2.3 GI panel Norovirus. A&P: 51yoM with a past medical history significant for IDDM, HTN, HLD who reported to ED with 2 day h/o N/V associated with generalized abdominal pain, diarrhea and chills. Feels weak. The patient will be admitted to /S for at least [address] Duncan's service. Pt is discussed with Dr Malone. Gastroenteritis/Norovirus as per GI panel. CT with gastroenteritis pattern. IVF at 75 cc per hr. Clear liq po. Zofran IV prn. Tylenol prn. LATOYA Baseline SCr 1.04. IVF as above. IDDM. BS 516. Continue Lantus/SSI HTN. Hold ACEI for now, recheck BMP in AM. BP 106/70. HLD. Statin. GERD. PPI Chronic pain/LBP. Gabapentin 600mg TID/Ultram BIDprn. DVT prophylaxis. The patient is a Full code. Vital Signs 106/70 115 18 97.1 98 RA Laboratory Data Labs 24H Laboratory Tests 2 12/10/16 09:17: Bedside Glucose (Misc Panel) 516*H 12/10/16 10:02: Aspartate Amino Transf (AST/SGOT) 21, Alanine Aminotransferase (ALT/SGPT) 28, Alkaline Phosphatase 63, Total Bilirubin 0.6, Direct Bilirubin < 0.1, Albumin 3.7, Albumin/Globulin Ratio 0.74L, Amylase Level 73, Anion Gap 9, White Blood Count 13.1H, Red Blood Count 5.14, Hemoglobin 14.4, Hematocrit 43.0, Mean Corpuscular Volume 83.5, Mean Corpuscular Hemoglobin 28.1, Mean Corpuscular Hemoglobin Concent 33.6, Red Cell Distribution Width 12.4, Platelet Count 267, Neutrophils (%) (Auto) 78.6H, Lymphocytes (%) (Auto) 13.6L, Monocytes (%) (Auto ) 4.8, Eosinophils (%) (Auto) 1.4, Basophils (%) (Auto) 0.4, Neutrophils # (Auto ) 10.3H, Lymphocytes # (Auto) 1.9, Monocytes # (Auto) 0.6, Eosinophils # (Auto) 0.2, Basophils # (Auto) 0.0, Calcium Level 9.3, Glomerular Filtration Rate 50.4L , Lactic Acid (Sepsis) 2.3*H, Large Unclassified Cells # 0.2, Large Unclassified Cells % 1.2, Lipase 399H, Total Protein 8.7H 12/10/16 10:32: Arterial Blood pH 7.370, Arterial Blood Partial Pressure CO2 38.9, Arterial Blood Partial Pressure O2 89.8, Arterial Blood Total CO2 23.2, Arterial Blood HCO3 22.0, Arterial Blood Base Excess -2.9L, Arterial Blood Oxygen Saturation 96.7, Blood Gas Bicarbonate Standard 22.0, Oxygen Delivery Device NASAL FERNIE 12/10/16 12:19: Bedside Glucose (Misc Panel) 386H CBC/BMP Laboratory Tests 12/10/16 10:02 Red Blood Count 5.14, Mean Corpuscular Volume 83.5, Mean Corpuscular Hemoglobin 28.1, Mean Corpuscular Hemoglobin Concent 33.6, Red Cell Distribution Width 12.4 , Neutrophils (%) (Auto) 78.6 H, Lymphocytes (%) (Auto) 13.6 L, Monocytes (%) ( Auto) 4.8, Eosinophils (%) (Auto) 1.4, Basophils (%) (Auto) 0.4, Neutrophils # ( Auto) 10.3 H, Lymphocytes # (Auto) 1.9, Monocytes # (Auto) 0.6, Eosinophils # ( Auto) 0.2, Basophils # (Auto) 0.0 FSBS Laboratory Tests Test 12/10/16 09:17 12/10/16 12:19 Range/Units Bedside Glucose (Misc Panel) 516 386 70-105 MG/DL Microbiology Microbiology 12/10/16 Blood Culture, Received Pending 12/10/16 Gastrointestinal Tract Panel (PCR) - Final, Complete Norovirus 12/10/16 Influenza Virus Type A Antigen - Final, Complete 12/10/16 Influenza Virus Type B Antigen - Final, Complete Home Medications Scheduled Aspirin (Aspirin) 81 Mg Tab 81 MG PO DAILY Atorvastatin Calcium (Lipitor) 20 Mg Tab 40 MG PO QHS Gabapentin (Gabapentin) 600 Mg Tab 600 MG PO TID Insulin Glargine (Lantus) 1 Units/0.01 Ml Susp 50 UNITS SC QHS Lisinopril (Lisinopril) 10 Mg Tab 10 MG PO DAILY Omeprazole (Omeprazole) 40 Mg Cap 40 MG PO DAILY Vitamin D (Drisdol) 50,000 Unit Cap 50,000 UNIT PO QWEEK SATURDAYS Scheduled PRN Acetaminophen (Mapap) 325 Mg Tab 650 MG PO Q4HP PRN PRN MILD PAIN OR FEVER Albuterol Sulfate (Ventolin Hfa) 200 Puff/8 Gm Aers 2 PUFF INH Q4H PRN PRN SHORTNESS OF BREATH Tramadol HCl (Tramadol HCl) 50 Mg Tab 50 MG PO BID PRN PRN PAIN Allergies Coded Allergies: [place] Oil (Unverified Allergy, Severe, THROAT CLOSES/SWELLING , 02/08/16) Olives (Unverified Allergy, Severe, THROAT CLOSES/SWELLING , 02/08/16) Peanut (Verified Allergy, Severe, PEANUT OIL/BUTTER=THROAT CLOSES/DYSPNEA , 01/28/13) Grass (Unverified Allergy, Unknown, 02/08/16) SEASONAL ALLERGIES (Unverified Allergy, Unknown, 02/08/16) Keiry Del Rosario Dec 10, 2016 13:13 Keiry Del Rosario Dec 10, 2016 13:13
[2016-12-10] MEDS ORDERED: ALBUTEROL 90 MCG/ACT 8GM HFA INHALER INH PRN (13:30)
[2016-12-10] MEDS ORDERED: ACETAMINOPHEN TAB 650MG DOSE (2X325MG) PO PRN (13:30)
[2016-12-10] MEDS ORDERED: traMADol 50 MG TAB PO PRN (13:30)
[2016-12-10] MEDS ORDERED: DEXTROSE 50% 50 ML SYRINGE IV PRN (13:30)
[2016-12-10] MEDS ORDERED: GLUCAGON FOR INJ 1 MG VIAL (J1610) SC PRN (13:30)
[2016-12-10] MEDS ORDERED: ONDANSETRON 4MG/2ML VIAL (J2405) IV PRN (13:30)
[2016-12-10] MEDS ORDERED: GLUCOSE 4 GM CHEW TABLET PO PRN (13:30)
[2016-12-10 15:56] VITALS: BP 115/71
[2016-12-10] MEDS: GABAPENTIN 300 MG CAP PO SCH ×2 (16:00→20:20)
--- NOTE | 2016-12-10 16:08 | EDDOCDS ---
Nurse's Notes [facility] Name: Anthony Love Age: 51 yrs Sex: Male : 1965 Arrival Date: 12/10/2016 Time: 09:01 Bed 14 Private MD: Diagnosis: Generalized abdominal pain;Vomiting;Diarrhea, unspecified-norvovirus Presentation: 12/10 09:18 Presenting complaint: Patient states: states n/v/d x 2 days. Adult Sepsis Screening: ml6 The patient does not have new or worsening altered mentation. Patient's respiratory rate is less than 22. Systolic blood pressure is greater than 100. Patient has a qSOFA score of 0- Negative Sepsis Screen. Suicide/Homicide risk assessment- the patient denies having any suicidal and/or homicidal ideations and does not present with any other emotional, behavioral or mental health complaints. Status: Patient is not a director of outpatient services or dependent. Transition of care: patient was not received from another setting of care. 09:18 Acuity: JOESPH Level 3 ml6 09:18 Method Of Arrival: Walkin/Carried/Asstd ml6 Triage Assessment: 09:21 General: Appears ill, Behavior is appropriate for age, cooperative. Pain: Denies pain. ml6 HIV screening NA for this visit Offered previously. GI: Abdomen is flat, non- distended Bowel sounds present X 4 quads. Abd is soft and non tender X 4 quads. Reports diarrhea, nausea, vomiting. Historical: - Allergies: olives (Anaphylaxis); peanut butter (diarrhea); - Home Meds: 1. albuterol sulfate 90 mcg/actuation Inhl HFAA 2 puffs every 4-6 hours (Last dose: 12/10/2016 07:00) 2. Lantus 100 unit/mL Sub-Q soln 50 unit nightly (Last dose: 12/09/2016 22:00) 3. aspirin 81 mg Oral tab 1 tab once daily (Last dose: 12/09/2016 08:00) 4. gabapentin 600 mg Oral tab 1 tab 3 times per day (Last dose: 12/09/2016 22:00) 5. gemfibrozil 600 mg Oral tab 1 tab 2 times per day (Last dose: 12/09/2016 22:00) 6. Lipitor 40 mg Oral tab 1 tab once daily (Last dose: 12/10/2016 08:00) 7. lisinopril 10 mg Oral tab (Last dose: 12/09/2016 08:00) 8. omeprazole 40 mg Oral cpDR 1 cap once daily (Last dose: 12/09/2016 08:00) 9. tramadol 50 mg Oral tab twice a day (Last dose: 12/09/2016 22:00) - PMHx: Diabetes - IDDM: uncontrolled; hyperlipidemia; Hypertension; Pancreatitis; - PSHx: Lithotripsy; cyst removed from left kidney; - Social history: Smoking status: Patient states former smoker of tobacco. No barriers to communication noted, Speaks appropriately for age. - Family history: Not pertinent. - : The pt / caregiver states he / she is not on anticoagulants. Home medication list is obtained from the patient, Unable to Verify Home Med List with the patient / caregiver. - Exposure Risk Screening:: None identified. Screenin:30 Screening information is obtained from the patient. Fall risk: No risks identified. mk4 Assistance ADL's: requires no assistance with activities of daily living. Abuse/DV Screen: The patient / caregiver reports he/she is: not in a situation that causes fear, pain or injury. Nutritional screening: No deficits noted. Advance Directives: Currently, there is no health care proxy. There is no active DNR order. There is no living will. There is no Power of Exercise Rider. Advance directive information has not previously been placed in an [facility] medical record. Further advance directive information is declined. home support is adequate. Assessment: 09:30 General: Appears uncomfortable. GI: Abdomen is non- distended Reports diarrhea, nausea, mk4 vomiting. 09:30 GI: other pt vomited 300 cc bile colored emesis while sitting on commode with large mk4 green liquids stool , pt states diffuse abd cramping , non specific. 11:10 General: Appears in no apparent distress, comfortable, to be sleeping. Respiratory: mk4 Airway is patent Respiratory effort is even, unlabored, Respiratory pattern is regular. Derm: Skin is pale. 13:37 General: Appears in no apparent distress, Behavior is cooperative, large green liquid mk4 stool on commode, ice chi[ps taken watching TV denies needs states he is "feeling hungry" . 14:55 Reassessment: Patient states feeling better. Patient states symptoms have improved. mk4 Adult Sepsis Screening: The patient does not have new or worsening altered mentation. Patient's respiratory rate is less than 22. Systolic blood pressure is greater than 100. Patient has a qSOFA score of 0- Negative Sepsis Screen. General: Appears in no apparent distress, comfortable, Behavior is cooperative, clear liquid diet given to pt . 15:30 General: Appears in no apparent distress, comfortable, Behavior is cooperative. GI: mk4 Abdomen is non- distended. 15:48 General: Appears in no apparent distress, comfortable, Behavior is cooperative. mk4 Vital Signs: 09:19 BP 106 / 70; Pulse 115; Resp 18; Temp 97.1(O); Pulse Ox 98% on R/A; Weight 78.02 kg ml6 (R); Height 5 ft. 7 in. (170.18 cm) (R); Pain 0/10; 14:08 BP 126 / 74; Pulse 88; Resp 20; Pulse Ox 97% on R/A; mk4 15:29 BP 115 / 80; Pulse 72; Resp 20; mk4 15:47 Resp 20; Temp 99.5; mk4 15:48 Temp 99.5(TE); jml1 09:19 Body Mass Index 26.94 (78.02 kg, 170.18 cm) ml6 Vitals: 09:19 Log In Time: December 10, 2016 at 09:01. ml6 ED Course: 09:03 Patient visited by Lianne Luis. az 09:03 Patient moved to Waiting az 09:19 Triage Initiated ml6 09:21 Patient moved to 14 ml6 09:30 The patient / caregiver is instructed regarding the plan of care and ED course. mk4 09:30 Inserted saline lock: 20 gauge in right antecubital area and blood collected. mk4 09:35 Ranjit Dupree MD is Attending Physician. ml 09:35 Patient visited by Ranjit Dupree MD. ml 10:04 -Arterial Blood Gas Sent. sd7 10:08 Patient visited by Jamee Quitnanilla RN. mk4 10:09 Lactic Acid (Reyes tube on ice) Sent. mk4 10:17 GASTROINTESTINAL (GI) PANEL Sent. mk4 10:18 -Influenza A&B Rapid Antigen - Nose Sent. mk4 10:39 Patient visited by Jamee Quintanilla RN. mk4 11:10 Patient visited by Jamee Quintanilla RN. mk4 11:10 No procedures done that require assistance. mk4 11:21 Chest, 1 View Returned. EDMS 11:41 Patient visited by Jamee Quintanilla RN. mk4 12:12 Patient visited by Jamee Quintanilla RN. mk4 12:18 Penny Malone is Hospitalizing Provider. ml 12:39 CT ABD & PELVIS: IV Contrast Only Returned. EDMS 13:11 [facility] Payment Agreement was scanned into [employer] and attached to record. jp5 14:42 Chest, 1 View Returned. EDMS 15:48 Patient visited by Qasim Osuna. jml1 Administered Medications: 10:18 Drug: NS 0.9% 1000 ml [sodium chloride 0.9 % intravenous solution] Route: IV; Rate: mk4 bolus; Site: right antecubital; 10:18 Drug: Ondansetron 4 mg Route: IVP; Site: right antecubital; mk4 11:42 Drug: NS 0.9% 1000 ml [sodium chloride 0.9 % intravenous solution] Route: IV; Rate: mk4 bolus; Site: right antecubital; Point of Care Testing: Blood Glucose: 09:19 Blood Glucose: 516 mg/dL; ml6 12:20 Blood Glucose: 386 mg/dL; mk4 Ranges: Intake: 13:38 IV: 1000.00ml (NS); Total: 1000.00ml. mk4 RT: 10:04 ABG's drawn from left radial artery allens test done and positive pressure held for 5 sd7 minutes no bleeding noted pressure bandage applied specimen sent pt. tolerated well. 10:41 ABG's drawn from right brachial artery pressure bandage applied specimen sent pt. kjn tolerated well. Order Results: Lab Order: BMP; SPEC'M 12/10/16 10:02 Test: GLUCOSE, FASTING; Value: 475; Range: 70-105; Abnormal: Above upper panic limits; Units: MG/DL; Status: F Test: BLOOD UREA NITROGEN; Value: 19; Range: 7-18; Abnormal: Above high normal; Units: MG/DL; Status: F Test: CREATININE FOR GFR; Value: 1.56; Range: 0.70-1.30; Abnormal: Above high normal; Units: MG/DL; Status: F Test: GLOMERULAR FILTRATION RATE; Value: 50.4; Range: >56; Abnormal: Below low normal; Status: F Test: SODIUM LEVEL; Value: 133; Range: 136-145; Abnormal: Below low normal; Units: MEQ/L; Status: F Test: POTASSIUM SERUM; Value: 4.5; Range: 3.5-5.1; Units: MEQ/L; Status: F Test: CHLORIDE LEVEL; Value: 98; Range: 98-107; Units: MEQ/L; Status: F Test: CARBON DIOXIDE LEVEL; Value: 26; Range: 21-32; Units: MEQ/L; Status: F Test: ANION GAP; Value: 9; Range: 8-16; Units: MEQ/L; Status: F Test: CALCIUM LEVEL; Value: 9.3; Range: 8.5-10.1; Units: MG/DL; Status: F Test Note: ; Units are mL/min/1.73 m2 Chronic Kidney Disease Staging per NKF: Stage I & II GFR >=60 Normal to Mildly Decreased Stage III GFR 30-59 Moderately Decreased Stage IV GFR 15-29 Severely Decreased Stage V GFR <15 Very Little GFR Left ESRD GFR <15 on VP PLATFORMS Lab Order: CBC with Diff; SPEC'M 12/10/16 10:02 Test: WHITE BLOOD COUNT; Value: 13.1; Range: 4.0-10.0; Abnormal: Above high normal; Units: K/mm3; Status: F Test: RED BLOOD COUNT; Value: 5.14; Range: 4.30-6.10; Units: M/mm3; Status: F Test: HEMOGLOBIN; Value: 14.4; Range: 14.0-18.0; Units: g/dl; Status: F Test: HEMATOCRIT; Value: 43.0; Range: 42.0-52.0; Units: %; Status: F Test: MEAN CORPUSCULAR VOLUME; Value: 83.5; Range: 80.0-96.0; Units: fl; Status: F Test: MEAN CORPUSCULAR HEMOGLOBIN; Value: 28.1; Range: 27.0-33.0; Units: pg; Status: F Test: MEAN CORPUSCULAR HGB CONC; Value: 33.6; Range: 32.0-36.5; Units: g/dl; Status: F Test: RED CELL DISTRIBUTION WIDTH; Value: 12.4; Range: 11.5-14.5; Units: %; Status: F Test: PLATELET COUNT, AUTOMATED; Value: 267; Range: 150-450; Units: k/mm3; Status: F Test: NEUTROPHILS %; Value: 78.6; Range: 36.0-66.0; Abnormal: Above high normal; Units: %; Status: F Test: LYMPH %; Value: 13.6; Range: 24.0-44.0; Abnormal: Below low normal; Units: %; Status: F Test: MONO %; Value: 4.8; Range: 0.0-5.0; Units: %; Status: F Test: EOS %; Value: 1.4; Range: 0.0-3.0; Units: %; Status: F Test: BASO %; Value: 0.4; Range: 0.0-1.0; Units: %; Status: F Test: LARGE UNSTAINED CELL %; Value: 1.2; Range: 0.0-4.0; Units: %; Status: F Test: NEUTROPHILS #; Value: 10.3; Range: 1.8-7.7; Abnormal: Above high normal; Units: K/mm3; Status: F Test: LYMPH #; Value: 1.9; Range: 1.5-4.5; Units: K/mm3; Status: F Test: MONO #; Value: 0.6; Range: 0.0-0.8; Units: K/mm3; Status: F Test: EOS #; Value: 0.2; Range: 0.0-0.50; Units: K/mm3; Status: F Test: BASO #; Value: 0.0; Range: 0.0-0.2; Units: K/mm3; Status: F Test: LARGE UNSTAINED CELL #; Value: 0.2; Range: 0.0-0.4; Units: K/mm3; Status: F Lab Order: Lipase; SPEC' 12/10/16 10:02 Test: LIPASE; Value: 399; Range: 73-393; Abnormal: Above high normal; Units: U/L; Status: F Lab Order: Liver Profile; SPEC' 12/10/16 10:02 Test: AST/SGOT; Value: 21; Range: 15-37; Units: U/L; Status: F Test: ALT/SGPT; Value: 28; Range: 12-78; Units: U/L; Status: F Test: ALKALINE PHOSPHATASE; Value: 63; Range: 45-117; Units: U/L; Status: F Test: BILIRUBIN,TOTAL; Value: 0.6; Range: 0.2-1.0; Units: MG/DL; Status: F Test: BILIRUBIN,DIRECT; Value: < 0.1; Range: 0.0-0.2; Units: MG/DL; Status: F Test: TOTAL PROTEIN; Value: 8.7; Range: 6.4-8.2; Abnormal: Above high normal; Units: GM/DL; Status: F Test: ALBUMIN; Value: 3.7; Range: 3.2-5.2; Units: GM/DL; Status: F Test: ALBUMIN/GLOBULIN RATIO; Value: 0.74; Range: 1.00-1.93; Abnormal: Below low normal; Status: F Lab Order: Amylase; SPEC'M 12/10/16 10:02 Test: AMYLASE; Value: 73; Range: 25-115; Units: U/L; Status: F Lab Order: Fingerstick Blood Sugar; SPEC'M 12/10/16 09:17 Test: BEDSIDE GLUCOSE; Value: 516; Range: 70-105; Abnormal: Above upper panic limits; Units: MG/DL; Status: F Test Note: ; Serum Blood Draw Lab Order: -Influenza A&B Rapid Antigen - Nose; SPEC'M 12/10/16 10:02 Test: INFLUENZA A RAPID SCR by ICA; Value: INFLUENZA A RESULTS NEGATIVE; Status: F Test: INFLUENZA A RAPID SCR by ICA; Value: Comments:; Status: F Test: INFLUENZA B RAPID SCR by ICA; Value: INFLUENZA B RESULTS NEGATIVE; Status: F Test Note: ; The Influenza test is a direct rapid immunoassay for the qualitative detection of Influenza viral antigen. Cell culture (Viral Culture) testing should be considered to confirm NEGATIVE results and to assist in detecting other viruses that can provide similar clinical symptoms. Please contact the lab within 24 [phone] ([phone]) if confirmatory testing is desired. Lab Order: -Arterial Blood Gas; SPEC'M 12/10/16 10:32 Test: ABG pH (ARTERIAL); Value: 7.370; Range: 7.350-7.450; Units: UNITS; Status: F Test: ABG PARTIAL PRESSURE CO2; Value: 38.9; Range: 35.0-45.0; Units: mmHg; Status: F Test: ABG PARTIAL PRESSURE O2; Value: 89.8; Range: 75.0-100.0; Units: mmHg; Status: F Test: ABG TOTAL CO2; Value: 23.2; Range: 22.0-29.0; Units: MEQ/L; Status: F Test: ABG HCO3; Value: 22.0; Range: 22.0-26.0; Units: MEQ/L; Status: F Test: ABG BASE EXCESS; Value: -2.9; Range: -2.0-2.0; Abnormal: Below low normal; Status: F Test: ABG STANDARD HCO3; Value: 22.0; Range: 22.0-26.0; Units: MEQ/L; Status: F Test: ABG O2 SATURATION; Value: 96.7; Range: 95.0-99.0; Units: %; Status: F Test: ABG DEVICE; Value: NASAL FERNIE; Status: F Lab Order: Lactic Acid (Reyes tube on ice); SPEC'M 12/10/16 10:02 Test: LACTIC ACID SEPSIS PROTOCOL; Value: 2.3; Range: 0.4-2.0; Abnormal: Above upper panic limits; Units: MMOL/L; Status: F Lab Order: GASTROINTESTINAL (GI) PANEL; SPEC'M 12/10/16 10:15 Test: GASTROINTESTINAL (GI) PANEL; Value: GI PANEL RESULT POSITIVE by PCR; Status: F Test: GASTROINTESTINAL (GI) PANEL; Value: Comments:; Status: F Test: GASTROINTESTINAL (GI) PANEL; Value: ORGANISM 1: NOROVIRUS; Status: F Test: GASTROINTESTINAL (GI) PANEL; Value: NOROVIRUS; Status: F Test: GASTROINTESTINAL (GI) PANEL; Value: CONSISTENCY OF STOOL UNFORMED stool.; Status: F Test: GASTROINTESTINAL (GI) PANEL; Value: Norovirus 1 Noroviruses are highly contagious and cause moderate; Status: F Test: GASTROINTESTINAL (GI) PANEL; Value: Norovirus 2 to severe gastroenteritis consisting primarily of; Status: F Test: GASTROINTESTINAL (GI) PANEL; Value: Norovirus 3 nausea, vomiting, and diarrhea with fever.; Status: F Test: GASTROINTESTINAL (GI) PANEL; Value: Norovirus 4 Transmission is fecal-oral or through aerosolized; Status: F Test: GASTROINTESTINAL (GI) PANEL; Value: Norovirus 5 vomitus. Symptoms generally last 24-48 hours and; Status: F Test: GASTROINTESTINAL (GI) PANEL; Value: Norovirus 6 the illness in self-limiting.; Status: F Test Note: ; This Gastrointestinal PCR Panel detects the following bacteria, parasites and viruses: Campylobacter (jejuni, coli and upsaliensis), Clostridium difficile (toxin A/B), Plesiomonas shigelloides, Salmonella, Yersinia enterocolitica, Vibrio (parahaemolyticus, vulnificus and cholerae), Vibrio clolerae, Enteroaggregative E. coli (EAEC), Enteropathogenis E. coli (EPEC), Enterotoxigenic E. coli (ETEC) it/st, Shiga-like producing E. coli (STEC) stx1/stc2, E.coli O157, Shigella/Enteroinvasive E. coli (EIEC), Cryptosporidium, Cyclospora cayetanensis, Entamoeba histolytica, Giardia lamblia, Adenovirus F 40/41, Astrovirus, Norovirus GI/GII, Rotavirus A and Sapovirus (I, II, IV, V). Lab Order: Fingerstick Blood Sugar; SPEC'M 12/10/16 12:19 Test: BEDSIDE GLUCOSE; Value: 386; Range: 70-105; Abnormal: Above high normal; Units: MG/DL; Status: F Radiology Order: Chest, 1 View Test: Chest, 1 View REASON FOR EXAMINATION: v/d; Portable chest x-ray: Sitting AP view.; ; History: Flu-like symptoms.; ; Comparison chest x-ray December 04, 2016.; ; Findings: The lungs are symmetrically aerated and free of infiltrate. Pleural; angles are sharp. Heart size is normal. Pulmonary vasculature is not increased.; No significant bony abnormality is seen.; ; Impression:; ; No active disease.; ; ; Signed by; See Camacho MD 12/10/2016 02:33 P; Radiology Order: CT ABD & PELVIS: IV Contrast Only Test: CT ABD & PELVIS: IV Contrast Only REASON FOR EXAMINATION: abdl pain; CT ABDOMEN/PELVIS WITH CONTRAST: 12/10/2016.; ; Clinical history: Generalized abdominal pain. Diabetic.; ; Comparison: CT 11/23/2016.; ; Technique: No oral contrast given. Bolus of 75 ml Isovue 370 with scanning; through the abdomen and pelvis with both coronal and sagittal reconstructions.; ; CT abdomen: Lung bases show minor dependent atelectatic change lower lung zones; but were without infiltrate, effusion, nodule or mass. Heart is not enlarged.; There is no pericardial thickening or effusion. No definite hiatal hernia. The; liver, spleen and adrenal glands are without mass. There is no hepatomegaly,; splenomegaly, ascites, biliary dilatation or focal hepatic mass. Clips from; prior cholecystectomy are noted. Kidneys show function without obstruction,; stone or mass. Proximal small bowel loops of the jejunum shows slight dilatation; filled with fluid but no inflammatory changes in the mesentery. Most small bowel; loops are fluid filled and the colon is also fluid filled but not abnormally; dilated. Appendix is seen and normal without inflammatory changes or stone.; There is no definite colitis or diverticulitis. The mid to distal small bowel; loops are of normal caliber. Some fluid filled. No mesenteric fluid, edema or; adenopathy. The aorta is without aneurysm. No periaortic or retroperitoneal; pathologic sized lymphadenopathy is noted but one mesenteric nodule about 10.7 mm; without other masses or nodes. Lung window review of all CT abdomen and pelvis; slices shows no perforation or free air.; ; CT bone windows demonstrate lumbar and lower thoracic spine and posterior; elements without acute finding and the visualized ribs intact.; ; CT pelvis. The bony hips show minor degenerative changes with no evidence of AVN; or fracture. The iliac wings, sacroiliac joints and sacrum without acute finding; although there is sclerosis along the margins of the upper sacrum, right greater; than left as a chronic change. Nothing acute. There is no renal, ureteral or; bladder stone. Bladder shows no wall thickening or mass. Distal small bowel; loops with some fluid within but no dilatation. Distal left colon, sigmoid and; rectum fluid-filled without colitis, diverticulitis, stricture or mass. No; ventral or inguinal hernia.; ; Impression:; ; 1. Findings consistent with gastroenteritis with fluid-filled colon and small; bowel loops. Some dilatation of the proximal jejunum but other loops with normal; caliber. No definite colitis or diverticulitis. Appendix seen and normal.; 2. There is no ascites, free air or significant adenopathy. There was one 10.7; mm node in the mesentery. All other nodes smaller and unremarkable.; 3. Status post cholecystectomy with the liver, spleen, adrenal glands, pancreas; and kidneys unremarkable.; ; ; ; ; ; ; Unreviewed; Outcome: 12:19 Decision to Hospitalize by Provider. 15:29 Discharge Assessment: Patient awake, alert and oriented x 3. No cognitive and/or mk4 functional deficits noted. Patient verbalized understanding of disposition instructions. Patient awake and alert. Discharge Assessment: patient administered narcotics - no. The following High Risk Discharge criteria are identified: None. Admitted to Med/Surg via stretcher, with chart. Condition: stable Condition: improved. No special radiology studies were completed. Property left with pt per kassi TANG. 16:07 Patient left the ED. mk4 Signatures: Dispatcher [facility] EDMS Ranjit Dupree MD MD ml Lowe, Matthew, RN RN ml6 Qasim Osuna jml1 Melina Bullock Margaret RN RN mk4 Mayra Austin,RT RT sd7 Javier Peterson jp5 Lianne Luis Corrections: (The following items were deleted from the chart) 13:39 09:30 GI: Abdomen is non- distended Reports diarrhea, nausea, vomiting, mk4 mk4 14:13 09:30 General: Appears uncomfortable, mk4 mk4 MTDD
--- NOTE | 2016-12-10 16:08 | EDDOCDS ---
Physician Documentation [facility] Name: Anthony Love Age: 51 yrs Sex: Male : 1965 Arrival Date: 12/10/2016 Time: 09:01 Bed 14 Private MD: Disposition: 12/10/16 12:19 Hospitalization ordered by Penny Malone for Inpatient Admission. Preliminary diagnosis are Generalized abdominal pain, Vomiting, Diarrhea, unspecified - norvovirus. - Bed requested for 4 [place]. - Status is Inpatient Admission. mk4 - Condition is Stable. - Problem is new. - Symptoms are unchanged. Historical: - Allergies: olives (Anaphylaxis); peanut butter (diarrhea); - Home Meds: 1. albuterol sulfate 90 mcg/actuation Inhl HFAA 2 puffs every 4-6 hours (Last dose: 12/10/2016 07:00) 2. Lantus 100 unit/mL Sub-Q soln 50 unit nightly (Last dose: 12/09/2016 22:00) 3. aspirin 81 mg Oral tab 1 tab once daily (Last dose: 12/09/2016 08:00) 4. gabapentin 600 mg Oral tab 1 tab 3 times per day (Last dose: 12/09/2016 22:00) 5. gemfibrozil 600 mg Oral tab 1 tab 2 times per day (Last dose: 12/09/2016 22:00) 6. Lipitor 40 mg Oral tab 1 tab once daily (Last dose: 12/10/2016 08:00) 7. lisinopril 10 mg Oral tab (Last dose: 12/09/2016 08:00) 8. omeprazole 40 mg Oral cpDR 1 cap once daily (Last dose: 12/09/2016 08:00) 9. tramadol 50 mg Oral tab twice a day (Last dose: 12/09/2016 22:00) - PMHx: Diabetes - IDDM: uncontrolled; hyperlipidemia; Hypertension; Pancreatitis; - PSHx: Lithotripsy; cyst removed from left kidney; - Social history: Smoking status: Patient states former smoker of tobacco. No barriers to communication noted, Speaks appropriately for age. - Family history: Not pertinent. - : The pt / caregiver states he / she is not on anticoagulants. Home medication list is obtained from the patient, Unable to Verify Home Med List with the patient / caregiver. - Exposure Risk Screening:: None identified. Vital Signs: 12/10 09:19 BP 106 / 70; Pulse 115; Resp 18; Temp 97.1(O); Pulse Ox 98% on R/A; Weight 78.02 kg / ml6 172 lbs (R); Height 5 ft. 7 in. (170.18 cm) (R); Pain 0/10; 14:08 BP 126 / 74; Pulse 88; Resp 20; Pulse Ox 97% on R/A; mk4 15:29 BP 115 / 80; Pulse 72; Resp 20; mk4 15:47 Resp 20; Temp 99.5; mk4 15:48 Temp 99.5(TE); jml1 09:19 Body Mass Index 26.94 (78.02 kg, 170.18 cm) ml6 MDM: 09:30 IV Saline Lock ordered. ml6 09:30 Undress patient appropriately for examination ordered. ml6 09:30 BMP Ordered. EDMS 09:31 CBC with Diff Ordered. EDMS 09:31 Lipase Ordered. EDMS 09:31 Liver Profile Ordered. EDMS 09:31 Amylase Ordered. EDMS 09:34 Fingerstick Blood Sugar Ordered. EDMS 09:43 NS 0.9% 1000 ml IV at bolus once ordered. ml 09:44 Ondansetron 4 mg IVP once ordered. ml 09:44 Obtain sample by nasopharyngeal swab ordered. ml 09:44 Call Respiratory ordered. ml 09:45 Stool samples ordered. ml 09:45 -Influenza A&B Rapid Antigen - Nose Ordered. EDMS 09:45 -Arterial Blood Gas Ordered. EDMS 09:46 -Blood Culture (Adults Only), peripheral from different site, or from device/port/PICC ml etc. if present ordered. 09:47 Chest, 1 View Ordered. EDMS 09:47 UA Ordered. EDMS 09:47 Lactic Acid (Reyes tube on ice) Ordered. EDMS 09:47 GASTROINTESTINAL (GI) PANEL Ordered. EDMS 09:47 -Blood Culture Ordered. EDMS 09:47 Urine Culture Ordered. EDMS 09:48 -Blood Culture (Adults Only), peripheral from different site, or from device/port/PICC deg etc. if present complete. 09:49 Call Respiratory complete. deg 09:50 BLOOD CULTURES Ordered. EDMS 10:19 NS 0.9% 1000 ml IV at bolus once ordered. ml 10:20 BED REQUEST+ADM ordered. EDMS 10:51 CBC with Diff Reviewed. ml 10:51 Fingerstick Blood Sugar Reviewed. ml 10:51 -Arterial Blood Gas Reviewed. ml 11:00 BMP Reviewed. ml 11:00 Lipase Reviewed. ml 11:00 Liver Profile Reviewed. ml 11:00 Lactic Acid (Reyes tube on ice) Reviewed. ml 11:00 Amylase Reviewed. ml 11:00 -Influenza A&B Rapid Antigen - Nose Reviewed. ml 11:01 CT ABD & PELVIS: IV Contrast Only Ordered. EDMS 12:13 GASTROINTESTINAL (GI) PANEL Reviewed. ml 12:13 Chest, 1 View Reviewed. ml 12:15 Accucheck ordered. ml 13:11 [facility] Payment Agreement was scanned into [employer] and attached to record. jp5 13:11 Financial registration complete. jp5 13:27 CLEAR LIQUIDS DIET ordered. EDMS 13:28 LACTIC ACID LEVEL, LACTATE Ordered. EDMS 14:30 Admission / Observation Status ordered. EDMS Point of Care Testing: Blood Glucose: 09:19 Blood Glucose: 516 mg/dL; ml6 12:20 Blood Glucose: 386 mg/dL; mk4 Ranges: Administered Medications: 10:18 Drug: NS 0.9% 1000 ml [sodium chloride 0.9 % intravenous solution] Route: IV; Rate: mk4 bolus; Site: right antecubital; 10:18 Drug: Ondansetron 4 mg Route: IVP; Site: right antecubital; mk4 11:42 Drug: NS 0.9% 1000 ml [sodium chloride 0.9 % intravenous solution] Route: IV; Rate: mk4 bolus; Site: right antecubital; Signatures: Dispatcher [facility] EDWA Ranjit Dupree MD MD ml Murray, Denise, [employer] Rohith Huang RN RN ml6 Jamee Quintanilla RN RN vale4 Javier Peterson jp5 Brianne Claire RN KITTY howe The chart was reviewed and I authenticate all verbal orders and agree with the evaluation and treatment provided.Corrections: (The following items were deleted from the chart) 09:47 09:31 VENOUS BLOOD GAS+LAB ordered. EDWA EDMS 09:47 09:46 GASTROINTESTINAL (GI) PANEL+JOHANNA ordered. EDWA EDMS Attachments: 13:11 [facility] Payment Agreement jp5 MTDD
[2016-12-10] MEDS: NS 1,000 ML IV SCH (16:11)
[2016-12-10] MEDS: HumaLOG INSULIN (NovoLOG) PER UNIT SC SCH ×2 (17:11→20:21)
[2016-12-10] MEDS: LEVEMIR (INSULIN DETEMIR) 1 UNITS/0.01ML SC SCH (20:20)
[2016-12-10] MEDS: ATORVASTATIN 20 MG TAB PO SCH (20:20)
[2016-12-10 22:00] VITALS: BP 123/75
[2016-12-11] MEDS: NS 1,000 ML IV SCH ×2 (01:15→08:16)
[2016-12-11 06:00] VITALS: BP 107/68
[2016-12-11 06:56] LABS: BASO % 0.6 % (0.0-1.0); EOS # 0.3 K/mm3 (0.0-0.50); EOS % 4.7 % (0.0-3.0); LARGE UNSTAINED CELL # 0.2 K/mm3 (0.0-0.4); LARGE UNSTAINED CELL % 4.1 % (0.0-4.0); LYMPH # 3.2 K/mm3 (1.5-4.5); LYMPH % 54.6 % (24.0-44.0); MEAN CORPUSCULAR HEMOGLOBIN 28.5 pg (27.0-33.0); MEAN CORPUSCULAR HGB CONC 34.5 g/dl (32.0-36.5); MEAN CORPUSCULAR VOLUME 82.6 fl (80.0-96.0); MONO # 0.4 K/mm3 (0.0-0.8); MONO % 7.1 % (0.0-5.0); NEUTROPHILS # 1.7 K/mm3 (1.8-7.7); NEUTROPHILS % 29.1 % (36.0-66.0); PLATELET COUNT, AUTOMATED 201 k/mm3 (150-450); RED CELL DISTRIBUTION WIDTH 11.9 % (11.5-14.5); WHITE BLOOD COUNT 5.8 K/mm3 (4.0-10.0)
[2016-12-11 07:09] LABS: ALBUMIN 2.5 GM/DL (3.2-5.2); ALBUMIN/GLOBULIN RATIO 0.71 (1.00-1.93); ALKALINE PHOSPHATASE 36 U/L (45-117); ALT/SGPT 25 U/L (12-78); ANION GAP 7 MEQ/L (8-16); AST/SGOT 20 U/L (15-37); BILIRUBIN,TOTAL 0.3 MG/DL (0.2-1.0); BLOOD UREA NITROGEN 12 MG/DL (7-18); CALCIUM LEVEL 7.9 MG/DL (8.5-10.1); CARBON DIOXIDE LEVEL 28 MEQ/L (21-32); CHLORIDE LEVEL 107 MEQ/L (98-107); CREATININE FOR GFR 0.98 MG/DL (0.70-1.30); GLOMERULAR FILTRATION RATE > 60.0 (>56); GLUCOSE, FASTING 232 MG/DL (70-105); POTASSIUM SERUM 3.8 MEQ/L (3.5-5.1); SODIUM LEVEL 142 MEQ/L (136-145)
[2016-12-11] MEDS: ASPIRIN 81 MG ENTERIC TAB PO SCH (08:25)
[2016-12-11] MEDS: GABAPENTIN 300 MG CAP PO SCH ×3 (08:25→20:18)
[2016-12-11] MEDS: HumaLOG INSULIN (NovoLOG) PER UNIT SC SCH ×4 (08:25→20:19)
[2016-12-11] MEDS: OMEPRAZOLE 20 MG CAP PO SCH (08:25)
--- NOTE | 2016-12-11 10:36 | IPNPDOC ---
Assessment/Plan Date Seen The patient was seen on 12/11/16. Problems Problems: (1) Gastroenteritis due to norovirus Status: Acute Response to Treatment: Improving Problem Text: Hydration status improved c IVF. Will decrease to KVO today and ADAT slowly. He's drinking well. Fluids can always be reinstituted if oral intake declines. No e- abnormalities. Repeat e- panel in AM (2) Hyperglycemia due to type 2 diabetes mellitus Status: Chronic Response to Treatment: Improving Problem Specific Plan: Monitor Clinically, Repeat Labs Problem Text: Improving c lantus and SSI coverage. Intially were >500, now in 300 range. This is a chronic issue; his a1c in November was 13. Continue with ac/ hs FSBGs (3) LATOYA (acute kidney injury) Status: Chronic Problem Text: 2/2 GI losses. UA w/o LE/bacteria. Ucx pending. Therefore, no abx to be started. Repeat Cr in AM. Stressed c pt importance of maintaining hydration status. (4) Hyperlipemia Status: Chronic Response to Treatment: Stable Problem Text: Continue statin. (5) GERD (gastroesophageal reflux disease) Status: Chronic Response to Treatment: Stable Problem Text: PPI. Abdominal pain improving and 2/2 infectious GE. Therefore, will maintain current dose rather than increase. (6) Chronic low back pain Status: Chronic Response to Treatment: Stable Problem Text: Continue gabapentin. Plan / VTE VTE Prophylaxis Ordered?: Yes Plan IVF: Decrease Diet: Advance Activity: Continue Current Diagnostics: Repeat Labs in AM Anticipated Discharge: Home Subjective Review of Systems CC/HPI The patient is a 51-year-old male admitted with a reason for visit of Diarrhea. Events since last encounter Seen at the bedside on 4pav. Abdominal pain improving but still present, mild. His n/v have completely resolved, and he is tolerating a CLD w/o problem. Stools still loose but starting to form. No fevers. LATOYA resolved with aggressive fluid rehydration. FSBGs improving. General: Denies: Chills, Fatigue, Malaise, Night Sweats, Normal Appetite, Other Symptoms, ROS Unobtainable Constitutional: Denies: Chills, Fatigue, Fever, Lethargy, Malaise, Night Sweats , Other, Weakness, Weight Loss Skin: Denies: Breakdown, Lesions, Rash Cardiovascular: Denies: Chest Pain, Lt Headedness, Orthopnea, Palpitations, Paroxysmal Noc. Dyspnea Gastrointestinal: Reports: Abdominal Pain (improving), Diarrhea (improving), Denies: Constipation, Hematochezia, Nausea, Vomiting Genitourinary: Denies: Dysuria, Frequency, Incontinence, Retention Endocrine: Denies: Polydipsia, Polyuria Neurological: Denies: Change in speech, Confusion, Numbness, Weakness Objective Physical Examination General Exam: Positive: Alert, No Acute Distress ENT Exam: Positive: Atraumatic, Mucous membr. moist/pink, Pharynx Normal Neck Exam: Positive: Supple, Negative: JVD, thyromegaly Chest Exam: Positive: Clear to auscultation, Normal air movement Heart Exam: Positive: Normal S1, Normal S2, Rate Normal, Regular Rhythm, Negative: Murmurs, Rubs Abdomen Exam: Positive: Normal bowel sounds, Tenderness (mild. No rebound/ guarding) Extremity Exam: Positive: Normal pulses, Negative: Clubbing, Cyanosis, Edema Skin Exam: Positive: Nl turgor and temperature, Negative: Breakdown, Rash Psych Exam: Positive: Mental status NL, Mood NL, Oriented x 3 Vital Signs/I&O Vital Signs Date Time Temp Pulse Resp B/P Pulse Ox O2 Delivery O2 Flow Rate FiO2 12/11/16 06:00 96.8 82 17 107/68 98 Room Air I&O- Last 24 Hours up to 6 AM 12/11/16 05:59 Intake Total 1875 ml Output Total 450 ml Balance 1425 ml Laboratory Data Labs 24H Laboratory Tests 2 12/10/16 10:32: Arterial Blood pH 7.370, Arterial Blood Partial Pressure CO2 38.9, Arterial Blood Partial Pressure O2 89.8, Arterial Blood Total CO2 23.2, Arterial Blood HCO3 22.0, Arterial Blood Base Excess -2.9L, Arterial Blood Oxygen Saturation 96.7, Blood Gas Bicarbonate Standard 22.0, Oxygen Delivery Device NASAL FERNIE 12/10/16 12:19: Bedside Glucose (Misc Panel) 386H 12/10/16 14:26: Lactic Acid Level 2.3*H 12/10/16 16:46: Bedside Glucose (Misc Panel) 415H 12/10/16 20:05: Bedside Glucose (Misc Panel) 325H 12/10/16 20:11: Lactic Acid (Sepsis) 3.5*H 12/11/16 00:39: Lactic Acid Level 1.4 12/11/16 04:03: Urine Amorphous Sediment , Urine Appearance CLEAR, Urine Color YELLOW, Urine pH 5.0, Urine Specific [place] 1.030, Urine Protein NEGATIVE, Urine Glucose (UA) 3+ H, Urine Ketones NEGATIVE, Urine Urobilinogen 0.2, Urine Bilirubin NEGATIVE, Urine Leukocyte Esterase NEGATIVE, Urine Bacteria (Auto) NEGATIVE, Urine Blood NEGATIVE, Urine Calcium Carbonate Cryst(Auto) , Urine Calcium Oxalate Cryst ( Auto) , Urine Calcium Phosphate Mikaela (Auto) , Urine Cellular Casts , Urine Cystine Crystals , Urine Granular Casts (Auto) , Urine Hyaline Casts (Auto) 0, Urine Leucine Crystals , Urine Mucus (Auto) , Urine Nitrite NEGATIVE, Urine Oval Fat Bodies (Auto) , Urine RBC (Auto) 0, Urine Renal Epithelial Cells , Urine Sperm (Auto) , Urine Squamous Epithelial Cells 0, Urine Transitional Epithelial Cells , Urine Trichomonas (Auto) , Urine Triple Phosphate Cryst (Auto ) , Urine Tyrosine Crystals , Urine Uric Acid Crystals (Auto) , Urine WBC (Auto ) 0, Urine Waxy Casts (Auto) , Urine Yeast-Like Cells (Auto) 12/11/16 06:35: Blood Urea Nitrogen 12, Creatinine 0.98, Sodium Level 142#, Potassium Level 3.8 , Chloride Level 107, Carbon Dioxide Level 28, Calcium Level 7.9#L, Aspartate Amino Transf (AST/SGOT) 20, Alanine Aminotransferase (ALT/SGPT) 25, Alkaline Phosphatase 36L, Total Bilirubin 0.3, Total Protein 6.0#L, Albumin 2.5#L, Albumin/Globulin Ratio 0.71L, Anion Gap 7L, White Blood Count 5.8, Red Blood Count 4.24L, Hemoglobin 12.1#L, Hematocrit 35.1L, Mean Corpuscular Volume 82.6, Mean Corpuscular Hemoglobin 28.5, Mean Corpuscular Hemoglobin Concent 34.5, Red Cell Distribution Width 11.9, Platelet Count 201, Neutrophils (%) (Auto) 29.1L, Lymphocytes (%) (Auto) 54.6H, Monocytes (%) (Auto) 7.1H, Eosinophils (%) (Auto) 4.7H, Basophils (%) (Auto) 0.6, Neutrophils # (Auto) 1.7L, Lymphocytes # (Auto) 3.2, Monocytes # (Auto) 0.4, Eosinophils # (Auto) 0.3, Basophils # (Auto) 0.0, Glomerular Filtration Rate > 60.0, Large Unclassified Cells # 0.2, Large Unclassified Cells % 4.1H 12/11/16 09:40: Lactic Acid (Sepsis) 2.8*H CBC/BMP Laboratory Tests 12/11/16 06:35 Calcium Level 7.9 #L, Aspartate Amino Transf (AST/SGOT) 20, Alanine Aminotransferase (ALT/SGPT) 25, Alkaline Phosphatase 36 L, Total Bilirubin 0.3, Total Protein 6.0 #L, Albumin 2.5 #L, Red Blood Count 4.24 L, Mean Corpuscular Volume 82.6, Mean Corpuscular Hemoglobin 28.5, Mean Corpuscular Hemoglobin Concent 34.5, Red Cell Distribution Width 11.9, Neutrophils (%) (Auto) 29.1 L, Lymphocytes (%) (Auto) 54.6 H, Monocytes (%) (Auto) 7.1 H, Eosinophils (%) (Auto ) 4.7 H, Basophils (%) (Auto) 0.6, Neutrophils # (Auto) 1.7 L, Lymphocytes # ( Auto) 3.2, Monocytes # (Auto) 0.4, Eosinophils # (Auto) 0.3, Basophils # (Auto) 0.0 FSBS Laboratory Tests Test 12/10/16 12:19 12/10/16 16:46 12/10/16 20:05 Range/Units Bedside Glucose (Misc Panel) 386 415 325 70-105 MG/DL Microbiology Microbiology 12/10/16 Blood Culture, Received Pending 12/10/16 Blood Culture - Preliminary, Resulted No growth after 24 hours . All specim... 12/10/16 Gastrointestinal Tract Panel (PCR) - Final, Complete Norovirus 12/10/16 Influenza Virus Type A Antigen - Final, Complete 12/10/16 Influenza Virus Type B Antigen - Final, Complete 12/11/16 Urine Culture, Received Pending GME ATTESTATION GME ATTESTATION My preceptor for this patient encounter was physically present in the building during the encounter and was fully available. As needed, all aspects of the patient interview, examination, medical decision making process, and medical care plan development were reviewed and approved by the preceptor. Preceptor is aware and concurs with the plan as stated in the body of this note and will attest to such by his/her cosignature. LYNN BENITEZ DO Dec 11, 2016 10:36
[2016-12-11] MEDS ORDERED: SLF 3 ML SYR IV PRN (10:45)
[2016-12-11] MEDS: SLF 3 ML SYR IV SCH ×2 (13:12→20:33)
[2016-12-11 14:00] VITALS: BP 156/98
[2016-12-11] MEDS: ATORVASTATIN 20 MG TAB PO SCH (20:18)
[2016-12-11] MEDS: LEVEMIR (INSULIN DETEMIR) 1 UNITS/0.01ML SC SCH (20:19)
[2016-12-11 22:00] VITALS: BP 130/85
[2016-12-12 06:00] VITALS: BP 138/87
[2016-12-12] MEDS: SLF 3 ML SYR IV SCH (06:00)
[2016-12-12 06:14] LABS: BASO % 0.5 % (0.0-1.0); EOS # 0.3 K/mm3 (0.0-0.50); EOS % 5.1 % (0.0-3.0); LARGE UNSTAINED CELL # 0.1 K/mm3 (0.0-0.4); LARGE UNSTAINED CELL % 2.1 % (0.0-4.0); LYMPH # 2.7 K/mm3 (1.5-4.5); LYMPH % 49.2 % (24.0-44.0); MEAN CORPUSCULAR HEMOGLOBIN 28.2 pg (27.0-33.0); MEAN CORPUSCULAR VOLUME 80.6 fl (80.0-96.0); MONO # 0.3 K/mm3 (0.0-0.8); MONO % 6.3 % (0.0-5.0); NEUTROPHILS % 36.7 % (36.0-66.0); PLATELET COUNT, AUTOMATED 189 k/mm3 (150-450); RED CELL DISTRIBUTION WIDTH 11.7 % (11.5-14.5); WHITE BLOOD COUNT 5.5 K/mm3 (4.0-10.0)
[2016-12-12 06:27] LABS: ALBUMIN 2.5 GM/DL (3.2-5.2); ALBUMIN/GLOBULIN RATIO 0.68 (1.00-1.93); ALKALINE PHOSPHATASE 70 U/L (45-117); ALT/SGPT 35 U/L (12-78); ANION GAP 9 MEQ/L (8-16); AST/SGOT 25 U/L (15-37); BILIRUBIN,TOTAL 0.2 MG/DL (0.2-1.0); BLOOD UREA NITROGEN 11 MG/DL (7-18); CALCIUM LEVEL 7.9 MG/DL (8.5-10.1); CARBON DIOXIDE LEVEL 26 MEQ/L (21-32); CHLORIDE LEVEL 108 MEQ/L (98-107); CREATININE FOR GFR 0.98 MG/DL (0.70-1.30); GLOMERULAR FILTRATION RATE > 60.0 (>56); GLUCOSE, FASTING 247 MG/DL (70-105); POTASSIUM SERUM 3.6 MEQ/L (3.5-5.1); SODIUM LEVEL 143 MEQ/L (136-145); TOTAL PROTEIN 6.2 GM/DL (6.4-8.2)
[2016-12-12] MEDS: GABAPENTIN 300 MG CAP PO SCH (08:09)
[2016-12-12] MEDS: ASPIRIN 81 MG ENTERIC TAB PO SCH (08:09)
[2016-12-12] MEDS: HumaLOG INSULIN (NovoLOG) PER UNIT SC SCH ×2 (08:09→12:19)
[2016-12-12] MEDS: OMEPRAZOLE 20 MG CAP PO SCH (08:10)
[2016-12-12] MEDS ORDERED: MAPA325T2 PO (09:41)
--- NOTE | 2016-12-12 10:19 | DSES ---
DATE OF ADMISSION: 12/10/2016 DATE OF DISCHARGE: 12/12/2016 PRIMARY CARE PHYSICIAN: Tatyana Hooper and Dr. Mynor Hernandez. ATTENDING PHYSICIAN: Dr. Mynor Hernandez. HISTORY OF PRESENT ILLNESS: Anthony Love is a 51-year-old male patient who follows with Tatyana Hooper, nurse practitioner, and Dr. Hernandez at the [facility] who was admitted with gastroenteritis. GI panel showed norovirus. CT was done that showed gastroenteritis. CT report stated "findings consistent with gastroenteritis with fluid-filled colon and small bowel loops. Some dilatation of the proximal jejunum but other loops with normal caliber. No definite colitis or diverticulitis. Appendix seen and normal. No ascites, free air or significant adenopathy. One 10.7 mm node in the mesentery. All other nodes are smaller and unremarkable. Status post cholecystectomy with liver, spleen, adrenal glands, pancreas and kidneys unremarkable". The patient was admitted for gastroenteritis due to norovirus. Started on IV fluids. Later IV fluids were discontinued when the patient was tolerating oral diet. On day of discharge, the patient was feeling much better and denied any abdominal pain or further diarrhea. He will be discharged home. The patient has a history of insulin-dependent diabetes mellitus and is on Lantus 50 units as an outpatient. He was placed on 30 units of Levemir while inpatient. Blood sugars still remained high, in the upper 200s to 400s. He will be discharged home back on his normal dose of Lantus 50 units daily. The patient was maintained on Lipitor for hyperlipidemia. He was continued on his other home meds including gabapentin for his chronic low back pain. The patient is on lisinopril as an outpatient. This was held initially due to elevated creatinine but will be restarted at discharge. The patient will need to follow up with his primary care physician in a week. PHYSICAL EXAMINATION: Vitals: Temperature 96.7, pulse 81, respiratory rate 15, blood pressure is 138/87, pulse ox 97%. General: The patient is alert, no acute distress. Chest: Clear to auscultation bilaterally. Heart: Regular rate and rhythm. Abdomen: Positive bowel sounds, soft, nontender. No rebound or guarding. Extremities: No edema. LABORATORY DATA: WBC 5.5, hemoglobin 11.7, hematocrit 33.4, platelets 189. Sodium 143, potassium 3.6, chloride 108, carbon dioxide 26, BUN 11, creatinine 0.98, glucose 247, lactic acid 1.7, calcium 7.9, total bilirubin 0.2, AST 25, ALT 35, alk phos 70, total protein 6.2, albumin 2.5. Urine culture was negative. Blood cultures showed no growth after 24 hours. Influenza negative. GI panel showed norovirus. MEDICATIONS: - acetaminophen 650 mg every 4 hours as needed pain or fever - albuterol puffer two puffs every 4 hours as needed shortness of breath - aspirin 81 mg by mouth daily - Lipitor 40 mg by mouth daily - gabapentin 600 mg three times daily - Lantus 50 units subcutaneous daily at bedtime - lisinopril 10 mg by mouth daily - omeprazole 40 mg by mouth daily - tramadol 50 mg by mouth twice daily as needed pain - Drisdol 50,000 units by mouth weekly DISCHARGE INSTRUCTIONS: Followup with Dr. Hernandez or Tatyana Hooper in 1 week. Diet is carbohydrate consistent. Activity is as tolerated. DISCHARGE DIAGNOSES: Gastroenteritis due to norovirus. Diabetes mellitus type 2. Acute kidney injury. Hyperlipidemia. Gastroesophageal reflux disease (GERD). Chronic low back pain. MTDD
--- NOTE | 2016-12-12 17:07 | EDDOCDS ---
Physician Documentation [facility] Name: Anthony Love Age: 51 yrs Sex: Male : 1965 Arrival Date: 12/10/2016 Time: 09:01 Bed 14 Private MD: Disposition: 12/10/16 12:19 Hospitalization ordered by Penny Malone for Inpatient Admission. Preliminary diagnosis are Generalized abdominal pain, Vomiting, Diarrhea, unspecified - norvovirus. - Bed requested for 4 [place]. - Status is Inpatient Admission. mk4 - Condition is Stable. - Problem is new. - Symptoms are unchanged. Historical: - Allergies: olives (Anaphylaxis); peanut butter (diarrhea); - Home Meds: 1. albuterol sulfate 90 mcg/actuation Inhl HFAA 2 puffs every 4-6 hours (Last dose: 12/10/2016 07:00) 2. Lantus 100 unit/mL Sub-Q soln 50 unit nightly (Last dose: 12/09/2016 22:00) 3. aspirin 81 mg Oral tab 1 tab once daily (Last dose: 12/09/2016 08:00) 4. gabapentin 600 mg Oral tab 1 tab 3 times per day (Last dose: 12/09/2016 22:00) 5. gemfibrozil 600 mg Oral tab 1 tab 2 times per day (Last dose: 12/09/2016 22:00) 6. Lipitor 40 mg Oral tab 1 tab once daily (Last dose: 12/10/2016 08:00) 7. lisinopril 10 mg Oral tab (Last dose: 12/09/2016 08:00) 8. omeprazole 40 mg Oral cpDR 1 cap once daily (Last dose: 12/09/2016 08:00) 9. tramadol 50 mg Oral tab twice a day (Last dose: 12/09/2016 22:00) - PMHx: Diabetes - IDDM: uncontrolled; hyperlipidemia; Hypertension; Pancreatitis; - PSHx: Lithotripsy; cyst removed from left kidney; - Social history: Smoking status: Patient states former smoker of tobacco. No barriers to communication noted, Speaks appropriately for age. - Family history: Not pertinent. - : The pt / caregiver states he / she is not on anticoagulants. Home medication list is obtained from the patient, Unable to Verify Home Med List with the patient / caregiver. - Exposure Risk Screening:: None identified. Vital Signs: 12/10 09:19 BP 106 / 70; Pulse 115; Resp 18; Temp 97.1(O); Pulse Ox 98% on R/A; Weight 78.02 kg / ml6 172 lbs (R); Height 5 ft. 7 in. (170.18 cm) (R); Pain 0/10; 14:08 BP 126 / 74; Pulse 88; Resp 20; Pulse Ox 97% on R/A; mk4 15:29 BP 115 / 80; Pulse 72; Resp 20; mk4 15:47 Resp 20; Temp 99.5; mk4 15:48 Temp 99.5(TE); jml1 09:19 Body Mass Index 26.94 (78.02 kg, 170.18 cm) ml6 MDM: 09:30 IV Saline Lock ordered. ml6 09:30 Undress patient appropriately for examination ordered. ml6 09:30 BMP Ordered. EDMS 09:31 CBC with Diff Ordered. EDMS 09:31 Lipase Ordered. EDMS 09:31 Liver Profile Ordered. EDMS 09:31 Amylase Ordered. EDMS 09:34 Fingerstick Blood Sugar Ordered. EDMS 09:43 NS 0.9% 1000 ml IV at bolus once ordered. ml 09:44 Ondansetron 4 mg IVP once ordered. ml 09:44 Obtain sample by nasopharyngeal swab ordered. ml 09:44 Call Respiratory ordered. ml 09:45 Stool samples ordered. ml 09:45 -Influenza A&B Rapid Antigen - Nose Ordered. EDMS 09:45 -Arterial Blood Gas Ordered. EDMS 09:46 -Blood Culture (Adults Only), peripheral from different site, or from device/port/PICC ml etc. if present ordered. 09:47 Chest, 1 View Ordered. EDMS 09:47 UA Ordered. EDMS 09:47 Lactic Acid (Reyes tube on ice) Ordered. EDMS 09:47 GASTROINTESTINAL (GI) PANEL Ordered. EDMS 09:47 -Blood Culture Ordered. EDMS 09:47 Urine Culture Ordered. EDMS 09:48 -Blood Culture (Adults Only), peripheral from different site, or from device/port/PICC deg etc. if present complete. 09:49 Call Respiratory complete. deg 09:50 BLOOD CULTURES Ordered. EDMS 10:19 NS 0.9% 1000 ml IV at bolus once ordered. ml 10:20 BED REQUEST+ADM ordered. EDMS 10:51 CBC with Diff Reviewed. ml 10:51 Fingerstick Blood Sugar Reviewed. ml 10:51 -Arterial Blood Gas Reviewed. ml 11:00 BMP Reviewed. ml 11:00 Lipase Reviewed. ml 11:00 Liver Profile Reviewed. ml 11:00 Lactic Acid (Reyes tube on ice) Reviewed. ml 11:00 Amylase Reviewed. ml 11:00 -Influenza A&B Rapid Antigen - Nose Reviewed. ml 11:01 CT ABD & PELVIS: IV Contrast Only Ordered. EDMS 12:13 GASTROINTESTINAL (GI) PANEL Reviewed. ml 12:13 Chest, 1 View Reviewed. ml 12:15 Accucheck ordered. ml 13:11 COUNT INCLUDES THE [facility] Payment Agreement was scanned into [employer] and attached to record. jp5 13:11 Financial registration complete. jp5 13:27 CLEAR LIQUIDS DIET ordered. EDMS 13:28 LACTIC ACID LEVEL, LACTATE Ordered. EDMS 14:30 Admission / Observation Status ordered. EDMS 16:21 T-Sheet-- Draft Copy was scanned into [employer] and attached to record. r Point of Care Testing: Blood Glucose: 09:19 Blood Glucose: 516 mg/dL; ml6 12:20 Blood Glucose: 386 mg/dL; mk4 Ranges: Administered Medications: 10:18 Drug: NS 0.9% 1000 ml [sodium chloride 0.9 % intravenous solution] Route: IV; Rate: mk4 bolus; Site: right antecubital; 10:18 Drug: Ondansetron 4 mg Route: IVP; Site: right antecubital; mk4 11:42 Drug: NS 0.9% 1000 ml [sodium chloride 0.9 % intravenous solution] Route: IV; Rate: mk4 bolus; Site: right antecubital; Signatures: Dispatcher [employer] EDSD Ranjit Dupree MD MD ml Murray, Denise, Director Of Staff Development Unit Rohith Huang RN RN ml6 Jamee Quintanilla RN RN mk4 Javier Peterson jp5 Liliane Das Brianne Connolly RN RN lmg The chart was reviewed and I authenticate all verbal orders and agree with the evaluation and treatment provided.Corrections: (The following items were deleted from the chart) 09:47 09:31 VENOUS BLOOD GAS+LAB ordered. EDSD EDMS 09:47 09:46 GASTROINTESTINAL (GI) PANEL+JOHANNA ordered. EDMS EDMS Attachments: 13:11 [facility] Payment Agreement jp5 16:21 T-Sheet-- Draft Copy klr Chart Complete MTDD
--- NOTE | 2016-12-12 17:08 | EDDOCDS ---
Nurse's Notes [facility] Name: Anthony Love Age: 51 yrs Sex: Male : 1965 Arrival Date: 12/10/2016 Time: 09:01 Bed 14 Private MD: Diagnosis: Generalized abdominal pain;Vomiting;Diarrhea, unspecified-norvovirus Presentation: 12/10 09:18 Presenting complaint: Patient states: states n/v/d x 2 days. Adult Sepsis Screening: ml6 The patient does not have new or worsening altered mentation. Patient's respiratory rate is less than 22. Systolic blood pressure is greater than 100. Patient has a qSOFA score of 0- Negative Sepsis Screen. Suicide/Homicide risk assessment- the patient denies having any suicidal and/or homicidal ideations and does not present with any other emotional, behavioral or mental health complaints. Status: Patient is not a student services director or dependent. Transition of care: patient was not received from another setting of care. 09:18 Acuity: JOESPH Level 3 ml6 09:18 Method Of Arrival: Walkin/Carried/Asstd ml6 Triage Assessment: 09:21 General: Appears ill, Behavior is appropriate for age, cooperative. Pain: Denies pain. ml6 HIV screening NA for this visit Offered previously. GI: Abdomen is flat, non- distended Bowel sounds present X 4 quads. Abd is soft and non tender X 4 quads. Reports diarrhea, nausea, vomiting. Historical: - Allergies: olives (Anaphylaxis); peanut butter (diarrhea); - Home Meds: 1. albuterol sulfate 90 mcg/actuation Inhl HFAA 2 puffs every 4-6 hours (Last dose: 12/10/2016 07:00) 2. Lantus 100 unit/mL Sub-Q soln 50 unit nightly (Last dose: 12/09/2016 22:00) 3. aspirin 81 mg Oral tab 1 tab once daily (Last dose: 12/09/2016 08:00) 4. gabapentin 600 mg Oral tab 1 tab 3 times per day (Last dose: 12/09/2016 22:00) 5. gemfibrozil 600 mg Oral tab 1 tab 2 times per day (Last dose: 12/09/2016 22:00) 6. Lipitor 40 mg Oral tab 1 tab once daily (Last dose: 12/10/2016 08:00) 7. lisinopril 10 mg Oral tab (Last dose: 12/09/2016 08:00) 8. omeprazole 40 mg Oral cpDR 1 cap once daily (Last dose: 12/09/2016 08:00) 9. tramadol 50 mg Oral tab twice a day (Last dose: 12/09/2016 22:00) - PMHx: Diabetes - IDDM: uncontrolled; hyperlipidemia; Hypertension; Pancreatitis; - PSHx: Lithotripsy; cyst removed from left kidney; - Social history: Smoking status: Patient states former smoker of tobacco. No barriers to communication noted, Speaks appropriately for age. - Family history: Not pertinent. - : The pt / caregiver states he / she is not on anticoagulants. Home medication list is obtained from the patient, Unable to Verify Home Med List with the patient / caregiver. - Exposure Risk Screening:: None identified. Screenin:30 Screening information is obtained from the patient. Fall risk: No risks identified. mk4 Assistance ADL's: requires no assistance with activities of daily living. Abuse/DV Screen: The patient / caregiver reports he/she is: not in a situation that causes fear, pain or injury. Nutritional screening: No deficits noted. Advance Directives: Currently, there is no health care proxy. There is no active DNR order. There is no living will. There is no Power of Neck Cutter. Advance directive information has not previously been placed in an [facility] medical record. Further advance directive information is declined. home support is adequate. Assessment: 09:30 General: Appears uncomfortable. GI: Abdomen is non- distended Reports diarrhea, nausea, mk4 vomiting. 09:30 GI: other pt vomited 300 cc bile colored emesis while sitting on commode with large mk4 green liquids stool , pt states diffuse abd cramping , non specific. 11:10 General: Appears in no apparent distress, comfortable, to be sleeping. Respiratory: mk4 Airway is patent Respiratory effort is even, unlabored, Respiratory pattern is regular. Derm: Skin is pale. 13:37 General: Appears in no apparent distress, Behavior is cooperative, large green liquid mk4 stool on commode, ice chi[ps taken watching TV denies needs states he is "feeling hungry" . 14:55 Reassessment: Patient states feeling better. Patient states symptoms have improved. mk4 Adult Sepsis Screening: The patient does not have new or worsening altered mentation. Patient's respiratory rate is less than 22. Systolic blood pressure is greater than 100. Patient has a qSOFA score of 0- Negative Sepsis Screen. General: Appears in no apparent distress, comfortable, Behavior is cooperative, clear liquid diet given to pt . 15:30 General: Appears in no apparent distress, comfortable, Behavior is cooperative. GI: mk4 Abdomen is non- distended. 15:48 General: Appears in no apparent distress, comfortable, Behavior is cooperative. mk4 Vital Signs: 09:19 BP 106 / 70; Pulse 115; Resp 18; Temp 97.1(O); Pulse Ox 98% on R/A; Weight 78.02 kg ml6 (R); Height 5 ft. 7 in. (170.18 cm) (R); Pain 0/10; 14:08 BP 126 / 74; Pulse 88; Resp 20; Pulse Ox 97% on R/A; mk4 15:29 BP 115 / 80; Pulse 72; Resp 20; mk4 15:47 Resp 20; Temp 99.5; mk4 15:48 Temp 99.5(TE); jml1 09:19 Body Mass Index 26.94 (78.02 kg, 170.18 cm) ml6 Vitals: 09:19 Log In Time: December 10, 2016 at 09:01. ml6 ED Course: 09:03 Patient visited by Lianne Luis. az 09:03 Patient moved to Waiting az 09:19 Triage Initiated ml6 09:21 Patient moved to 14 ml6 09:30 The patient / caregiver is instructed regarding the plan of care and ED course. mk4 09:30 Inserted saline lock: 20 gauge in right antecubital area and blood collected. mk4 09:35 Ranjit Dupree MD is Attending Physician. ml 09:35 Patient visited by Ranjit Dupree MD. ml 10:04 -Arterial Blood Gas Sent. sd7 10:08 Patient visited by Jamee Quintanilla RN. mk4 10:09 Lactic Acid (Reyes tube on ice) Sent. mk4 10:17 GASTROINTESTINAL (GI) PANEL Sent. mk4 10:18 -Influenza A&B Rapid Antigen - Nose Sent. mk4 10:39 Patient visited by Jamee Quintanilla RN. mk4 11:10 Patient visited by Jamee Quintanilla RN. mk4 11:10 No procedures done that require assistance. mk4 11:21 Chest, 1 View Returned. EDMS 11:41 Patient visited by Jamee Quintanilla RN. mk4 12:12 Patient visited by Jamee Quintanilla RN. mk4 12:18 Penny Malone is Hospitalizing Provider. ml 12:39 CT ABD & PELVIS: IV Contrast Only Returned. EDMS 13:11 [facility] [place] was scanned into [employer] and attached to record. jp5 14:42 Chest, 1 View Returned. EDMS 15:48 Patient visited by Qasim Osuna. jml1 16:21 T-Sheet-- Draft Copy was scanned into [employer] and attached to record. klr Administered Medications: 10:18 Drug: NS 0.9% 1000 ml [sodium chloride 0.9 % intravenous solution] Route: IV; Rate: mk4 bolus; Site: right antecubital; 10:18 Drug: Ondansetron 4 mg Route: IVP; Site: right antecubital; mk4 11:42 Drug: NS 0.9% 1000 ml [sodium chloride 0.9 % intravenous solution] Route: IV; Rate: mk4 bolus; Site: right antecubital; Point of Care Testing: Blood Glucose: 09:19 Blood Glucose: 516 mg/dL; ml6 12:20 Blood Glucose: 386 mg/dL; mk4 Ranges: Intake: 13:38 IV: 1000.00ml (NS); Total: 1000.00ml. mk4 RT: 10:04 ABG's drawn from left radial artery allens test done and positive pressure held for 5 sd7 minutes no bleeding noted pressure bandage applied specimen sent pt. tolerated well. 10:41 ABG's drawn from right brachial artery pressure bandage applied specimen sent pt. kjn tolerated well. Order Results: Lab Order: BRIA; SPEC'M 12/10/16 10:02 Test: GLUCOSE, FASTING; Value: 475; Range: 70-105; Abnormal: Above upper panic limits; Units: MG/DL; Status: F Test: BLOOD UREA NITROGEN; Value: 19; Range: 7-18; Abnormal: Above high normal; Units: MG/DL; Status: F Test: CREATININE FOR GFR; Value: 1.56; Range: 0.70-1.30; Abnormal: Above high normal; Units: MG/DL; Status: F Test: GLOMERULAR FILTRATION RATE; Value: 50.4; Range: >56; Abnormal: Below low normal; Status: F Test: SODIUM LEVEL; Value: 133; Range: 136-145; Abnormal: Below low normal; Units: MEQ/L; Status: F Test: POTASSIUM SERUM; Value: 4.5; Range: 3.5-5.1; Units: MEQ/L; Status: F Test: CHLORIDE LEVEL; Value: 98; Range: 98-107; Units: MEQ/L; Status: F Test: CARBON DIOXIDE LEVEL; Value: 26; Range: 21-32; Units: MEQ/L; Status: F Test: ANION GAP; Value: 9; Range: 8-16; Units: MEQ/L; Status: F Test: CALCIUM LEVEL; Value: 9.3; Range: 8.5-10.1; Units: MG/DL; Status: F Test Note: ; Units are mL/min/1.73 m2 Chronic Kidney Disease Staging per NKF: Stage I & II GFR >=60 Normal to Mildly Decreased Stage III GFR 30-59 Moderately Decreased Stage IV GFR 15-29 Severely Decreased Stage V GFR <15 Very Little GFR Left ESRD GFR <15 on FLOOR POLISHER Lab Order: CBC with Diff; SPEC'M 12/10/16 10:02 Test: WHITE BLOOD COUNT; Value: 13.1; Range: 4.0-10.0; Abnormal: Above high normal; Units: K/mm3; Status: F Test: RED BLOOD COUNT; Value: 5.14; Range: 4.30-6.10; Units: M/mm3; Status: F Test: HEMOGLOBIN; Value: 14.4; Range: 14.0-18.0; Units: g/dl; Status: F Test: HEMATOCRIT; Value: 43.0; Range: 42.0-52.0; Units: %; Status: F Test: MEAN CORPUSCULAR VOLUME; Value: 83.5; Range: 80.0-96.0; Units: fl; Status: F Test: MEAN CORPUSCULAR HEMOGLOBIN; Value: 28.1; Range: 27.0-33.0; Units: pg; Status: F Test: MEAN CORPUSCULAR HGB CONC; Value: 33.6; Range: 32.0-36.5; Units: g/dl; Status: F Test: RED CELL DISTRIBUTION WIDTH; Value: 12.4; Range: 11.5-14.5; Units: %; Status: F Test: PLATELET COUNT, AUTOMATED; Value: 267; Range: 150-450; Units: k/mm3; Status: F Test: NEUTROPHILS %; Value: 78.6; Range: 36.0-66.0; Abnormal: Above high normal; Units: %; Status: F Test: LYMPH %; Value: 13.6; Range: 24.0-44.0; Abnormal: Below low normal; Units: %; Status: F Test: MONO %; Value: 4.8; Range: 0.0-5.0; Units: %; Status: F Test: EOS %; Value: 1.4; Range: 0.0-3.0; Units: %; Status: F Test: BASO %; Value: 0.4; Range: 0.0-1.0; Units: %; Status: F Test: LARGE UNSTAINED CELL %; Value: 1.2; Range: 0.0-4.0; Units: %; Status: F Test: NEUTROPHILS #; Value: 10.3; Range: 1.8-7.7; Abnormal: Above high normal; Units: K/mm3; Status: F Test: LYMPH #; Value: 1.9; Range: 1.5-4.5; Units: K/mm3; Status: F Test: MONO #; Value: 0.6; Range: 0.0-0.8; Units: K/mm3; Status: F Test: EOS #; Value: 0.2; Range: 0.0-0.50; Units: K/mm3; Status: F Test: BASO #; Value: 0.0; Range: 0.0-0.2; Units: K/mm3; Status: F Test: LARGE UNSTAINED CELL #; Value: 0.2; Range: 0.0-0.4; Units: K/mm3; Status: F Lab Order: Lipase; SPEC'M 12/10/16 10:02 Test: LIPASE; Value: 399; Range: 73-393; Abnormal: Above high normal; Units: U/L; Status: F Lab Order: Liver Profile; SPEC'M 12/10/16 10:02 Test: AST/SGOT; Value: 21; Range: 15-37; Units: U/L; Status: F Test: ALT/SGPT; Value: 28; Range: 12-78; Units: U/L; Status: F Test: ALKALINE PHOSPHATASE; Value: 63; Range: 45-117; Units: U/L; Status: F Test: BILIRUBIN,TOTAL; Value: 0.6; Range: 0.2-1.0; Units: MG/DL; Status: F Test: BILIRUBIN,DIRECT; Value: < 0.1; Range: 0.0-0.2; Units: MG/DL; Status: F Test: TOTAL PROTEIN; Value: 8.7; Range: 6.4-8.2; Abnormal: Above high normal; Units: GM/DL; Status: F Test: ALBUMIN; Value: 3.7; Range: 3.2-5.2; Units: GM/DL; Status: F Test: ALBUMIN/GLOBULIN RATIO; Value: 0.74; Range: 1.00-1.93; Abnormal: Below low normal; Status: F Lab Order: Amylase; SPEC'M 12/10/16 10:02 Test: AMYLASE; Value: 73; Range: 25-115; Units: U/L; Status: F Lab Order: Fingerstick Blood Sugar; SPEC'M 12/10/16 09:17 Test: BEDSIDE GLUCOSE; Value: 516; Range: 70-105; Abnormal: Above upper panic limits; Units: MG/DL; Status: F Test Note: ; Serum Blood Draw Lab Order: -Influenza A&B Rapid Antigen - Nose; SPEC'M 12/10/16 10:02 Test: INFLUENZA A RAPID SCR by ICA; Value: INFLUENZA A RESULTS NEGATIVE; Status: F Test: INFLUENZA A RAPID SCR by ICA; Value: Comments:; Status: F Test: INFLUENZA B RAPID SCR by ICA; Value: INFLUENZA B RESULTS NEGATIVE; Status: F Test Note: ; The Influenza test is a direct rapid immunoassay for the qualitative detection of Influenza viral antigen. Cell culture (Viral Culture) testing should be considered to confirm NEGATIVE results and to assist in detecting other viruses that can provide similar clinical symptoms. Please contact the lab within 24 hours [phone] if confirmatory testing is desired. Lab Order: -Arterial Blood Gas; [facility] 12/10/16 10:32 Test: ABG pH (ARTERIAL); Value: 7.370; Range: 7.350-7.450; Units: UNITS; Status: F Test: ABG PARTIAL PRESSURE CO2; Value: 38.9; Range: 35.0-45.0; Units: mmHg; Status: F Test: ABG PARTIAL PRESSURE O2; Value: 89.8; Range: 75.0-100.0; Units: mmHg; Status: F Test: ABG TOTAL CO2; Value: 23.2; Range: 22.0-29.0; Units: MEQ/L; Status: F Test: ABG HCO3; Value: 22.0; Range: 22.0-26.0; Units: MEQ/L; Status: F Test: ABG BASE EXCESS; Value: -2.9; Range: -2.0-2.0; Abnormal: Below low normal; Status: F Test: ABG STANDARD HCO3; Value: 22.0; Range: 22.0-26.0; Units: MEQ/L; Status: F Test: ABG O2 SATURATION; Value: 96.7; Range: 95.0-99.0; Units: %; Status: F Test: ABG DEVICE; Value: NASAL FERNIE; Status: F Lab Order: Lactic Acid (Reyes tube on ice); [facility] 12/10/16 10:02 Test: LACTIC ACID SEPSIS PROTOCOL; Value: 2.3; Range: 0.4-2.0; Abnormal: Above upper panic limits; Units: MMOL/L; Status: F Lab Order: GASTROINTESTINAL (GI) PANEL; [facility] 12/10/16 10:15 Test: GASTROINTESTINAL (GI) PANEL; Value: GI PANEL RESULT POSITIVE by PCR; Status: F Test: GASTROINTESTINAL (GI) PANEL; Value: Comments:; Status: F Test: GASTROINTESTINAL (GI) PANEL; Value: ORGANISM 1: NOROVIRUS; Status: F Test: GASTROINTESTINAL (GI) PANEL; Value: NOROVIRUS; Status: F Test: GASTROINTESTINAL (GI) PANEL; Value: CONSISTENCY OF STOOL UNFORMED stool.; Status: F Test: GASTROINTESTINAL (GI) PANEL; Value: Norovirus 1 Noroviruses are highly contagious and cause moderate; Status: F Test: GASTROINTESTINAL (GI) PANEL; Value: Norovirus 2 to severe gastroenteritis consisting primarily of; Status: F Test: GASTROINTESTINAL (GI) PANEL; Value: Norovirus 3 nausea, vomiting, and diarrhea with fever.; Status: F Test: GASTROINTESTINAL (GI) PANEL; Value: Norovirus 4 Transmission is fecal-oral or through aerosolized; Status: F Test: GASTROINTESTINAL (GI) PANEL; Value: Norovirus 5 vomitus. Symptoms generally last 24-48 hours and; Status: F Test: GASTROINTESTINAL (GI) PANEL; Value: Norovirus 6 the illness in self-limiting.; Status: F Test Note: ; This Gastrointestinal PCR Panel detects the following bacteria, parasites and viruses: Campylobacter (jejuni, coli and upsaliensis), Clostridium difficile (toxin A/B), Plesiomonas shigelloides, Salmonella, Yersinia enterocolitica, Vibrio (parahaemolyticus, vulnificus and cholerae), Vibrio clolerae, Enteroaggregative E. coli (EAEC), Enteropathogenis E. coli (EPEC), Enterotoxigenic E. coli (ETEC) it/st, Shiga-like producing E. coli (STEC) stx1/stc2, E.coli O157, Shigella/Enteroinvasive E. coli (EIEC), Cryptosporidium, Cyclospora cayetanensis, Entamoeba histolytica, Giardia lamblia, Adenovirus F 40/41, Astrovirus, Norovirus GI/GII, Rotavirus A and Sapovirus (I, II, IV, V). Lab Order: Fingerstick Blood Sugar; SPEC'M 12/10/16 12:19 Test: BEDSIDE GLUCOSE; Value: 386; Range: 70-105; Abnormal: Above high normal; Units: MG/DL; Status: F Radiology Order: Chest, 1 View Test: Chest, 1 View REASON FOR EXAMINATION: v/d; Portable chest x-ray: Sitting AP view.; ; History: Flu-like symptoms.; ; Comparison chest x-ray December 04, 2016.; ; Findings: The lungs are symmetrically aerated and free of infiltrate. Pleural; angles are sharp. Heart size is normal. Pulmonary vasculature is not increased.; No significant bony abnormality is seen.; ; Impression:; ; No active disease.; ; ; Signed by; See Camacho MD 12/10/2016 02:33 P; Radiology Order: CT ABD & PELVIS: IV Contrast Only Test: CT ABD & PELVIS: IV Contrast Only REASON FOR EXAMINATION: abdl pain; CT ABDOMEN/PELVIS WITH CONTRAST: 12/10/2016.; ; Clinical history: Generalized abdominal pain. Diabetic.; ; Comparison: CT 11/23/2016.; ; Technique: No oral contrast given. Bolus of 75 ml Isovue 370 with scanning; through the abdomen and pelvis with both coronal and sagittal reconstructions.; ; CT abdomen: Lung bases show minor dependent atelectatic change lower lung zones; but were without infiltrate, effusion, nodule or mass. Heart is not enlarged.; There is no pericardial thickening or effusion. No definite hiatal hernia. The; liver, spleen and adrenal glands are without mass. There is no hepatomegaly,; splenomegaly, ascites, biliary dilatation or focal hepatic mass. Clips from; prior cholecystectomy are noted. Kidneys show function without obstruction,; stone or mass. Proximal small bowel loops of the jejunum shows slight dilatation; filled with fluid but no inflammatory changes in the mesentery. Most small bowel; loops are fluid filled and the colon is also fluid filled but not abnormally; dilated. Appendix is seen and normal without inflammatory changes or stone.; There is no definite colitis or diverticulitis. The mid to distal small bowel; loops are of normal caliber. Some fluid filled. No mesenteric fluid, edema or; adenopathy. The aorta is without aneurysm. No periaortic or retroperitoneal; pathologic sized lymphadenopathy is noted but one mesenteric nodule about 10.7 mm; without other masses or nodes. Lung window review of all CT abdomen and pelvis; slices shows no perforation or free air.; ; CT bone windows demonstrate lumbar and lower thoracic spine and posterior; elements without acute finding and the visualized ribs intact.; ; CT pelvis. The bony hips show minor degenerative changes with no evidence of AVN; or fracture. The iliac wings, sacroiliac joints and sacrum without acute finding; although there is sclerosis along the margins of the upper sacrum, right greater; than left as a chronic change. Nothing acute. There is no renal, ureteral or; bladder stone. Bladder shows no wall thickening or mass. Distal small bowel; loops with some fluid within but no dilatation. Distal left colon, sigmoid and; rectum fluid-filled without colitis, diverticulitis, stricture or mass. No; ventral or inguinal hernia.; ; Impression:; ; 1. Findings consistent with gastroenteritis with fluid-filled colon and small; bowel loops. Some dilatation of the proximal jejunum but other loops with normal; caliber. No definite colitis or diverticulitis. Appendix seen and normal.; 2. There is no ascites, free air or significant adenopathy. There was one 10.7; mm node in the mesentery. All other nodes smaller and unremarkable.; 3. Status post cholecystectomy with the liver, spleen, adrenal glands, pancreas; and kidneys unremarkable.; ; ; ; ; ; ; Unreviewed; Outcome: 12:19 Decision to Hospitalize by Provider. 15:29 Discharge Assessment: Patient awake, alert and oriented x 3. No cognitive and/or mk4 functional deficits noted. Patient verbalized understanding of disposition instructions. Patient awake and alert. Discharge Assessment: patient administered narcotics - no. The following High Risk Discharge criteria are identified: None. Admitted to Med/Surg via stretcher, with chart. Condition: stable Condition: improved. No special radiology studies were completed. Property left with pt per kassi TANG. 16:07 Patient left the ED. 4 Signatures: Dispatcher [facility] EDMS Ranjit Dupree MD MD ml Lowe, Matthew, RN RN ml6 Qasim Osuna jmMelina Bolton Margaret RN RN mk4 Mayra Austin,RT RT yonas7 Javier Peterson Abigail az Redder, Kathie klr Corrections: (The following items were deleted from the chart) 13:39 09:30 GI: Abdomen is non- distended Reports diarrhea, nausea, vomiting, 4 mk4 14:13 09:30 General: Appears uncomfortable, mk4 4 Chart Complete MTDD
--- NOTE | 2016-12-12 17:08 | EDDOCDS ---
Physician Documentation [facility] Name: Anthony Love Age: 51 yrs Sex: Male : 1965 Arrival Date: 12/10/2016 Time: 09:01 Bed 14 Private MD: Disposition: 12/10/16 12:19 Hospitalization ordered by Penny Malone for Inpatient Admission. Preliminary diagnosis are Generalized abdominal pain, Vomiting, Diarrhea, unspecified - norvovirus. - Bed requested for 4 [place]. - Status is Inpatient Admission. mk4 - Condition is Stable. - Problem is new. - Symptoms are unchanged. Historical: - Allergies: olives (Anaphylaxis); peanut butter (diarrhea); - Home Meds: 1. albuterol sulfate 90 mcg/actuation Inhl HFAA 2 puffs every 4-6 hours (Last dose: 12/10/2016 07:00) 2. Lantus 100 unit/mL Sub-Q soln 50 unit nightly (Last dose: 12/09/2016 22:00) 3. aspirin 81 mg Oral tab 1 tab once daily (Last dose: 12/09/2016 08:00) 4. gabapentin 600 mg Oral tab 1 tab 3 times per day (Last dose: 12/09/2016 22:00) 5. gemfibrozil 600 mg Oral tab 1 tab 2 times per day (Last dose: 12/09/2016 22:00) 6. Lipitor 40 mg Oral tab 1 tab once daily (Last dose: 12/10/2016 08:00) 7. lisinopril 10 mg Oral tab (Last dose: 12/09/2016 08:00) 8. omeprazole 40 mg Oral cpDR 1 cap once daily (Last dose: 12/09/2016 08:00) 9. tramadol 50 mg Oral tab twice a day (Last dose: 12/09/2016 22:00) - PMHx: Diabetes - IDDM: uncontrolled; hyperlipidemia; Hypertension; Pancreatitis; - PSHx: Lithotripsy; cyst removed from left kidney; - Social history: Smoking status: Patient states former smoker of tobacco. No barriers to communication noted, Speaks appropriately for age. - Family history: Not pertinent. - : The pt / caregiver states he / she is not on anticoagulants. Home medication list is obtained from the patient, Unable to Verify Home Med List with the patient / caregiver. - Exposure Risk Screening:: None identified. Vital Signs: 12/10 09:19 BP 106 / 70; Pulse 115; Resp 18; Temp 97.1(O); Pulse Ox 98% on R/A; Weight 78.02 kg / ml6 172 lbs (R); Height 5 ft. 7 in. (170.18 cm) (R); Pain 0/10; 14:08 BP 126 / 74; Pulse 88; Resp 20; Pulse Ox 97% on R/A; mk4 15:29 BP 115 / 80; Pulse 72; Resp 20; mk4 15:47 Resp 20; Temp 99.5; mk4 15:48 Temp 99.5(TE); jml1 09:19 Body Mass Index 26.94 (78.02 kg, 170.18 cm) ml6 MDM: 09:30 IV Saline Lock ordered. ml6 09:30 Undress patient appropriately for examination ordered. ml6 09:30 BMP Ordered. EDMS 09:31 CBC with Diff Ordered. EDMS 09:31 Lipase Ordered. EDMS 09:31 Liver Profile Ordered. EDMS 09:31 Amylase Ordered. EDMS 09:34 Fingerstick Blood Sugar Ordered. EDMS 09:43 NS 0.9% 1000 ml IV at bolus once ordered. ml 09:44 Ondansetron 4 mg IVP once ordered. ml 09:44 Obtain sample by nasopharyngeal swab ordered. ml 09:44 Call Respiratory ordered. ml 09:45 Stool samples ordered. ml 09:45 -Influenza A&B Rapid Antigen - Nose Ordered. EDMS 09:45 -Arterial Blood Gas Ordered. EDMS 09:46 -Blood Culture (Adults Only), peripheral from different site, or from device/port/PICC ml etc. if present ordered. 09:47 Chest, 1 View Ordered. EDMS 09:47 UA Ordered. EDMS 09:47 Lactic Acid (Reyes tube on ice) Ordered. EDMS 09:47 GASTROINTESTINAL (GI) PANEL Ordered. EDMS 09:47 -Blood Culture Ordered. EDMS 09:47 Urine Culture Ordered. EDMS 09:48 -Blood Culture (Adults Only), peripheral from different site, or from device/port/PICC deg etc. if present complete. 09:49 Call Respiratory complete. deg 09:50 BLOOD CULTURES Ordered. EDMS 10:19 NS 0.9% 1000 ml IV at bolus once ordered. ml 10:20 BED REQUEST+ADM ordered. EDMS 10:51 CBC with Diff Reviewed. ml 10:51 Fingerstick Blood Sugar Reviewed. ml 10:51 -Arterial Blood Gas Reviewed. ml 11:00 BMP Reviewed. ml 11:00 Lipase Reviewed. ml 11:00 Liver Profile Reviewed. ml 11:00 Lactic Acid (Reyes tube on ice) Reviewed. ml 11:00 Amylase Reviewed. ml 11:00 -Influenza A&B Rapid Antigen - Nose Reviewed. ml 11:01 CT ABD & PELVIS: IV Contrast Only Ordered. EDMS 12:13 GASTROINTESTINAL (GI) PANEL Reviewed. ml 12:13 Chest, 1 View Reviewed. ml 12:15 Accucheck ordered. ml 13:11 [facility] Payment Agreement was scanned into [employer] and attached to record. jp5 13:11 Financial registration complete. jp5 13:27 CLEAR LIQUIDS DIET ordered. EDMS 13:28 LACTIC ACID LEVEL, LACTATE Ordered. EDMS 14:30 Admission / Observation Status ordered. EDMS 16:21 T-Sheet-- Draft Copy was scanned into [employer] and attached to record. r Point of Care Testing: Blood Glucose: 09:19 Blood Glucose: 516 mg/dL; ml6 12:20 Blood Glucose: 386 mg/dL; mk4 Ranges: Administered Medications: 10:18 Drug: NS 0.9% 1000 ml [sodium chloride 0.9 % intravenous solution] Route: IV; Rate: mk4 bolus; Site: right antecubital; 10:18 Drug: Ondansetron 4 mg Route: IVP; Site: right antecubital; mk4 11:42 Drug: NS 0.9% 1000 ml [sodium chloride 0.9 % intravenous solution] Route: IV; Rate: mk4 bolus; Site: right antecubital; Signatures: Dispatcher [employer] EDIL Ranjit Dupree MD MD ml Murray, Denise, C[employer]ion [employer] Rohith Huang RN RN ml6 Jamee Quintanilla RN RN mk4 Javier Peterson jp5 Liliane Das Brianne Connolly RN RN lmg The chart was reviewed and I authenticate all verbal orders and agree with the evaluation and treatment provided.Corrections: (The following items were deleted from the chart) 09:47 09:31 VENOUS BLOOD GAS+LAB ordered. EDIL EDMS 09:47 09:46 GASTROINTESTINAL (GI) PANEL+JOHANNA ordered. EDMS EDMS Attachments: 13:11 [facility] [place] jp5 16:21 T-Sheet-- Draft Copy klr Chart Complete MTDD
== END 2016-12-12 13:15 | disposition home or self-care (01) | DRG 249 ==
LOC: M ED 09:01 → M MSPAV 14:27 → M ED INP 14:28 → M MSPAV 15:56
PROVIDERS: ADMIT Internal Medicine; ATTEND Family Medicine
DX: A08.11 Acute gastroenteropathy due to Norwalk agent (principal); N17.9 Acute kidney failure, unspecified; I69.951 Hemiplegia and hemiparesis following unspecified cerebrovascular disease affecting right dominant side; E11.65 Type 2 diabetes mellitus with hyperglycemia; K21.9 Gastro-esophageal reflux disease without esophagitis; M54.5 Low back pain; E78.5 Hyperlipidemia, unspecified; Z79.899 Other long term (current) drug therapy; Z79.82 Long term (current) use of aspirin

== ENCOUNTER 2017-01-20 21:35 | Emergency (ER) | payer OTHER ==
[~2017-01-20] VITALS: Ht 170.2 cm; Wt 78.9 kg
[~2017-01-20 21:35] MED LIST changes: +DRIS50002 PO; +FENO1CAP2 PO; +MAPA325T2 PO
[2017-01-20] MEDS ORDERED: SUCR1TA PO (22:03)
[2017-01-20] MEDS ORDERED: FENO1CAP2 PO (22:03)
[2017-01-20] MEDS ORDERED: CHOL4POW3 PO (22:03)
[2017-01-20] MEDS ORDERED: NS 1,000 ML IV ONE (22:15)
[2017-01-20 22:37] LABS: BASO % 0.7 % (0.0-1.0); EOS # 0.2 K/mm3 (0.0-0.50); EOS % 3.3 % (0.0-3.0); LARGE UNSTAINED CELL # 0.2 K/mm3 (0.0-0.4); LARGE UNSTAINED CELL % 2.4 % (0.0-4.0); LYMPH # 3.3 K/mm3 (1.5-4.5); LYMPH % 42.8 % (24.0-44.0); MEAN CORPUSCULAR HEMOGLOBIN 28.3 pg (27.0-33.0); MEAN CORPUSCULAR HGB CONC 35.4 g/dl (32.0-36.5); MEAN CORPUSCULAR VOLUME 80.1 fl (80.0-96.0); MONO # 0.3 K/mm3 (0.0-0.8); NEUTROPHILS # 3.6 K/mm3 (1.8-7.7); NEUTROPHILS % 46.8 % (36.0-66.0); PLATELET COUNT, AUTOMATED 201 k/mm3 (150-450); RED CELL DISTRIBUTION WIDTH 11.5 % (11.5-14.5); WHITE BLOOD COUNT 7.6 K/mm3 (4.0-10.0)
[2017-01-20] MEDS: MORPHINE 2 MG/ML 1ML SYRINGE IV PRN ×2 (22:37→23:52)
[2017-01-20 22:58] LABS: ALBUMIN 3.1 GM/DL (3.2-5.2); ALBUMIN/GLOBULIN RATIO 0.82 (1.00-1.93); ALKALINE PHOSPHATASE 70 U/L (45-117); ALT/SGPT 20 U/L (12-78); ANION GAP 10 MEQ/L (8-16); AST/SGOT 9 U/L (15-37); BILIRUBIN,DIRECT < 0.1 MG/DL (0.0-0.2); BILIRUBIN,TOTAL 0.3 MG/DL (0.2-1.0); BLOOD UREA NITROGEN 11 MG/DL (7-18); CALCIUM LEVEL 8.2 MG/DL (8.5-10.1); CARBON DIOXIDE LEVEL 26 MEQ/L (21-32); CHLORIDE LEVEL 99 MEQ/L (98-107); CREATININE FOR GFR 1.06 MG/DL (0.70-1.30); GLOMERULAR FILTRATION RATE > 60.0 (>56); POTASSIUM SERUM 4.1 MEQ/L (3.5-5.1); SODIUM LEVEL 135 MEQ/L (136-145); TOTAL PROTEIN 6.9 GM/DL (6.4-8.2)
[2017-01-20] MEDS ORDERED: HumuLIN R (REGULAR) INSULIN (NovoLIN R) **100U/ML** PER UNIT IV ONE (23:00)
[2017-01-20 23:11] LABS: GLUCOSE, FASTING 531 MG/DL (70-105)
[2017-01-20] MEDS ORDERED: LEVEMIR (INSULIN DETEMIR) 1 UNITS/0.01ML SC ONE (23:45)
[2017-01-21 00:44] VITALS: BP 152/97
== END 2017-01-21 00:48 | disposition home or self-care (01) ==
LOC: EDBD 21:35 → M ED 21:58
DX: K85.20 Alcohol induced acute pancreatitis without necrosis or infection (principal)

== ENCOUNTER 2017-01-22 22:51 | Inpatient (IN) | payer OTHER ==
[~2017-01-22] VITALS: Ht 170.2 cm; Wt 80.7 kg
[~2017-01-22 22:51] MED LIST changes: -ASPI81TAEC PO; -METO25TAB PO
[2017-01-22 23:29] LABS: BASO % 0.7 % (0.0-1.0); EOS # 0.2 K/mm3 (0.0-0.50); EOS % 2.9 % (0.0-3.0); LARGE UNSTAINED CELL # 0.2 K/mm3 (0.0-0.4); LARGE UNSTAINED CELL % 2.3 % (0.0-4.0); LYMPH # 3.9 K/mm3 (1.5-4.5); LYMPH % 49.5 % (24.0-44.0); MEAN CORPUSCULAR HEMOGLOBIN 28.7 pg (27.0-33.0); MEAN CORPUSCULAR HGB CONC 35.1 g/dl (32.0-36.5); MEAN CORPUSCULAR VOLUME 81.7 fl (80.0-96.0); MONO # 0.4 K/mm3 (0.0-0.8); MONO % 4.7 % (0.0-5.0); PLATELET COUNT, AUTOMATED 201 k/mm3 (150-450); RED CELL DISTRIBUTION WIDTH 11.6 % (11.5-14.5); WHITE BLOOD COUNT 7.6 K/mm3 (4.0-10.0)
[2017-01-22] MEDS ORDERED: NS 1,000 ML IV ONE (23:30)
[2017-01-22 23:44] LABS: ALBUMIN 3.3 GM/DL (3.2-5.2); ALBUMIN/GLOBULIN RATIO 0.79 (1.00-1.93); ALKALINE PHOSPHATASE 74 U/L (45-117); ALT/SGPT 22 U/L (12-78); AMYLASE 103 U/L (25-115); ANION GAP 10 MEQ/L (8-16); AST/SGOT 12 U/L (15-37); BILIRUBIN,DIRECT < 0.1 MG/DL (0.0-0.2); BILIRUBIN,TOTAL 0.3 MG/DL (0.2-1.0); BLOOD UREA NITROGEN 13 MG/DL (7-18); CALCIUM LEVEL 8.8 MG/DL (8.5-10.1); CARBON DIOXIDE LEVEL 25 MEQ/L (21-32); CHLORIDE LEVEL 97 MEQ/L (98-107); CREATININE FOR GFR 1.23 MG/DL (0.70-1.30); GLOMERULAR FILTRATION RATE > 60.0 (>56); POTASSIUM SERUM 3.9 MEQ/L (3.5-5.1); SODIUM LEVEL 132 MEQ/L (136-145); TOTAL PROTEIN 7.5 GM/DL (6.4-8.2)
[2017-01-23] VITALS (7 sets, daily range): BP systolic 118–163; BP diastolic 74–98; PULSE 93
[2017-01-23 00:19] LABS: GLUCOSE, FASTING 554 MG/DL (70-105)
[2017-01-23] MEDS ORDERED: HumuLIN R (REGULAR) INSULIN (NovoLIN R) **100U/ML** PER UNIT IV ONE ×3 (00:30→02:45)
[2017-01-23] MEDS ORDERED: ISOVUE-370 76% 100ML VIAL (Q9967) As Ordered ONE (00:33)
--- NOTE | 2017-01-23 02:00 | REPUSA ---
CLINICAL HISTORY: Abdominal pain. TECHNIQUE: Multiple axial, sagittal and coronal CT images were obtained through the abdomen and pelvi s after administration of intravenous contrast material. COMMENTS: The liver is moderately enlarged with decreased attenuation without mass or defect. There is no intra or extrahepatic biliary ductal dilatation. The spleen is normal. The gallbladder is surgically absen t. Minimal peripancreatic fat stranding. There is no evidence of adrenal mass. Both kidneys demonstrate prompt and equal nephrograms. The kidneys are normal in size, shape and conf iguration. There is no evidence of renal or ureteral mass. No renal or ureteral calculi are identifie d. There is no hydroureter or hydronephrosis. No evidence for appendicitis. There is no bowel wall thickening. No evidence for small or large sophia l obstruction. There is no evidence of abdominal ascites or lymphadenopathy. Fluid-filled distended stomach suggestive of gastroparesis. Distended bladder. Diffuse thickening of the wall of the bladder. There is no evidence of intrinsic or extrinsic bladder mass. There is no pelvic ascites or lymphadeno angus. Images of the lung bases show no evidence of pleural or parenchymal mass. There are no pleural effusi ons. Bilateral basilar atelectatic pulmonary changes. The bony structures are free of lytic or blastic lesions. Multilevel degenerative changes are seen in volving the thoracolumbar spine. Scattered calcifications are seen involving the aorta and major bran ches compatible with atherosclerosis. Small sliding hiatal hernia. IMPRESSION: Prior cholecystectomy. Moderate hepatomegaly with fat infiltration. Nondilated biliary tree. Minimal acute pancreatitis. Distended bladder. Gastroparesis. Constipation. Thank you for your kind referral of this patient.
[2017-01-23] MEDS ORDERED: ASPI81TAEC PO (02:33)
[2017-01-23] MEDS ORDERED: ACETAMINOPHEN TAB 650MG DOSE (2X325MG) PO PRN (03:45)
[2017-01-23] MEDS ORDERED: MORPHINE 4 MG/ML 1ML SYRINGE IV PRN (03:45)
[2017-01-23] MEDS ORDERED: MORPHINE 2 MG/ML 1ML SYRINGE IV PRN (03:45)
[2017-01-23] MEDS ORDERED: ONDANSETRON 4MG/2ML VIAL (J2405) IV PRN (03:45)
[2017-01-23] MEDS ORDERED: ALBUTEROL 90 MCG/ACT 8GM HFA INHALER INH PRN (04:00)
--- NOTE | 2017-01-23 04:17 | HPEPDOC ---
Medical History and Physical Date of Admission 01/23/17 History and Physical PRIMARY CARE PROVIDER: Dr. Hernandez ATTENDING: Dr. Larisa Sommer CHIEF COMPLAINT: Abd pain HISTORY OF PRESENT ILLNESS: This is a 51-year-old male past history of insulin-dependent diabetes mellitus, hypertension, prior episode of pancreatitis, history of alcohol abuse, hyperlipidemia, history of CVA with right-sided residual hemiparesis, CAD, gastroparesis who presents with abdominal pain and found to have acute pancreatitis. Patient states that his abdominal pain developed last nights after eating dinner. had stated the patient was pale and shivering, and developed abdominal pain. In the ED patient was found to have a lipase of 1200 CAT scan of the abdomen and pelvis noting mild pancreatitis. Patient had also been complaining of myalgias over the past 4 months. He is on atorvastatin and fenofibrate. Patient also stated that his blood sugars have been uncontrolled home ranging from 2 to 300s. States he takes his Lantus 50 units every night. States she missed one to two doses over the past week. PAST MEDICAL HISTORY:As per HPI PAST SURGICAL HISTORY: Cholecystectomy, ORIF RLE in childhood, Left Renal Cyst drained 05/19 SOCIAL HISTORY:Denies tobacco or illicit drug use. H/o alcohol abuse, however no recent use. FAMILY HISTORY:Non contributory ALLERGIES: Please see below. REVIEW OF SYSTEMS: HEENT: Denies sore throat/headache CARDIOVASCULAR: Denies chest pain/palpitations RESPIRATORY: No shortness of breath/cough GASTROINTESTINAL: Denies nausea/vomiting GENITOURINARY: Denies dysuria/urinary urgency. MUSCULOSKELETAL: + myalgias. no arthralgias NEUROLOGICAL: Denies any focal weakness Rest of ROS negative. HOME MEDICATIONS: Please see below. PHYSICAL EXAMINATION: Vitals: (see below) General: No acute distress, laying comfortably in bed. HEENT: Moist mucous membranes. Neck: No JVD or lymphadenopathy Cardiac: RRR, No murmurs Pulm: Clear to auscultation b/l. No wheezing, rhonchi Abd: Diffuse TTP, no rebound/guarding/rigidity. ND + BS Ext: No edema or cyanosis LABORATORY DATA: See below. IMAGING: CT Abd/pelvis 01/23/17 The liver is moderately enlarged with decreased attenuation without mass or defect. There is no intra or extrahepatic biliary ductal dilatation. The spleen is normal. The gallbladder is surgically absent. Minimal peripancreatic fat stranding. There is no evidence of adrenal mass. Both kidneys demonstrate prompt and equal nephrograms. The kidneys are normal in size, shape and configuration. There is no evidence of renal or ureteral mass. No renal or ureteral calculi are identified. There is no hydroureter or hydronephrosis. No evidence for appendicitis. There is no bowel wall thickening. No evidence for small or large bowel obstruction. There is no evidence of abdominal ascites or lymphadenopathy. Fluid-filled distended stomach suggestive of gastroparesis. Distended bladder. Diffuse thickening of the wall of the bladder. There is no evidence of intrinsic or extrinsic bladder mass. There is no pelvic ascites or lymphadenopathy. Images of the lung bases show no evidence of pleural or parenchymal mass. There are no pleural effusions. Bilateral basilar atelectatic pulmonary changes. The bony structures are free of lytic or blastic lesions. Multilevel degenerative changes are seen involving the thoracolumbar spine. Scattered calcifications are seen involving the aorta and major branches compatible with atherosclerosis. Small sliding hiatal hernia. IMPRESSION: Prior cholecystectomy. Moderate hepatomegaly with fat infiltration. Nondilated biliary tree. Minimal acute pancreatitis. Distended bladder. Gastroparesis. Constipation. MICROBIOLOGY: Please see below. ASSESSMENT/PLAN: 1. Acute pancreatitis- patient has a history of pancreatitis. Denies any recent alcohol use, however states they used to drink heavily. CT abdomen pelvis (see above), lipase 1200. We will also check lipid panel. Fibrate, statin , and lisinopril can all cause pancreatitis and have been held at this time. IV fluids, nothing by mouth, pain control with morphine. 2. Hyperglycemia- likely secondary to #1, as well as noncompliance. Patient also states his blood sugars generally run in 2 months to 300s at home. May benefit from twice a day dosing of Levemir; started on a lower dose given that he is NPO for now. Sliding scale insulin added as well. 3. Myalgias- CPK within normal limits. Possibly related to his statin and fibrate which have been held at this time. If they fail to improve despite withholding of meds, will need a neuro eval. 4. History of CVA- on aspirin. Statin temporarily held. 5. Asthma- stable. Continue current nebs. 6. Distended bladder with wall thickening on CAT scan- we'll order a urinalysis. Patient denies any symptoms at this time. 7. Hepatomegaly with fatty infiltration - lipid panel pending DVT prophylaxis-enoxaparin Patient will be followed by Dr. Sommer starting 01/23/17 at 7 AM. Vital Signs Vital Signs Date Time Temp Pulse Resp B/P Pulse Ox O2 Delivery O2 Flow Rate FiO2 01/22/17 23:06 99 96 RA 01/22/17 23:11 16 163/101 01/22/17 23:17 98.9 Laboratory Data Labs 24H Laboratory Tests 2 01/22/17 23:06: Aspartate Amino Transf (AST/SGOT) 12L, Alanine Aminotransferase (ALT/SGPT) 22, Alkaline Phosphatase 74, Total Bilirubin 0.3, Direct Bilirubin < 0.1, Albumin 3.3, Albumin/Globulin Ratio 0.79L, Amylase Level 103, Anion Gap 10, White Blood Count 7.6, Red Blood Count 4.41, Hemoglobin 12.7L, Hematocrit 36.0L, Mean Corpuscular Volume 81.7, Mean Corpuscular Hemoglobin 28.7, Mean Corpuscular Hemoglobin Concent 35.1, Red Cell Distribution Width 11.6, Platelet Count 201, Neutrophils (%) (Auto) 40.0, Lymphocytes (%) (Auto) 49.5H, Monocytes (%) (Auto) 4.7, Eosinophils (%) (Auto) 2.9, Basophils (%) (Auto) 0.7, Neutrophils # (Auto) 3.0, Lymphocytes # (Auto) 3.9, Monocytes # (Auto) 0.4, Eosinophils # (Auto) 0.2 , Basophils # (Auto) 0.0, Calcium Level 8.8, Creatine Kinase MB 2.6, Creatine Kinase MB Relative Index 1.42, Ethyl Alcohol Level < 0.003, Glomerular Filtration Rate > 60.0, Large Unclassified Cells # 0.2, Large Unclassified Cells % 2.3, Lipase 1206H, Total Creatine Kinase 183, Total Protein 7.5, Troponin I < 0.02 01/23/17 01:14: Bedside Glucose (Misc Panel) 401H 01/23/17 02:20: Bedside Glucose (Misc Panel) 333H 01/23/17 03:11: Bedside Glucose (Misc Panel) 246H CBC/BMP Laboratory Tests 01/22/17 23:06 Red Blood Count 4.41, Mean Corpuscular Volume 81.7, Mean Corpuscular Hemoglobin 28.7, Mean Corpuscular Hemoglobin Concent 35.1, Red Cell Distribution Width 11.6 , Neutrophils (%) (Auto) 40.0, Lymphocytes (%) (Auto) 49.5 H, Monocytes (%) ( Auto) 4.7, Eosinophils (%) (Auto) 2.9, Basophils (%) (Auto) 0.7, Neutrophils # ( Auto) 3.0, Lymphocytes # (Auto) 3.9, Monocytes # (Auto) 0.4, Eosinophils # (Auto ) 0.2, Basophils # (Auto) 0.0 Home Medications Scheduled (Fenofibric Acid Dr) 135 Mg Cap 135 MG PO QHS Aspirin (Aspirin EC) 81 Mg Tabec 81 MG PO QHS Atorvastatin Calcium (Lipitor) 20 Mg Tab 40 MG PO QHS Gabapentin (Gabapentin) 600 Mg Tab 600 MG PO TID Insulin Glargine (Lantus) 1 Units/0.01 Ml Susp 50 UNITS SC QHS Lisinopril (Lisinopril) 10 Mg Tab 10 MG PO QHS Omeprazole (Omeprazole) 40 Mg Cap 40 MG PO QHS Vitamin D (Drisdol) 50,000 Unit Cap 50,000 UNIT PO QWEEK SATURDAYS Scheduled PRN Albuterol Sulfate (Ventolin Hfa) 200 Puff/8 Gm Aers 2 PUFF INH QID PRN PRN SHORTNESS OF BREATH Tramadol HCl (Tramadol HCl) 50 Mg Tab 50 MG PO Q6H PRN PRN PAIN Allergies Coded Allergies: [place] Oil (Unverified Allergy, Severe, THROAT CLOSES/SWELLING , 01/22/17) Olives (Unverified Allergy, Severe, THROAT CLOSES/SWELLING , 01/22/17) Peanut (Verified Allergy, Severe, PEANUT OIL/BUTTER=THROAT CLOSES/DYSPNEA , 01/22/17) Grass (Unverified Allergy, Unknown, 01/22/17) SEASONAL ALLERGIES (Unverified Allergy, Unknown, 01/22/17) RUPINDER WARD MD Jan 23, 2017 04:17
[2017-01-23] MEDS: NS 1,000 ML IV SCH ×5 (06:26→20:51)
[2017-01-23] MEDS ORDERED: GLUCAGON FOR INJ 1 MG VIAL (J1610) SC PRN (07:00)
[2017-01-23] MEDS ORDERED: DEXTROSE 50% 50 ML SYRINGE IV PRN (07:00)
[2017-01-23] MEDS ORDERED: GLUCOSE 4 GM CHEW TABLET PO PRN (07:00)
--- NOTE | 2017-01-23 07:23 | ECGEPIP ---
Stationary ECG Study [facility] - ED Test Date: 2017-01-22 Pat Name: CASEY GLASS Department: Room: [place] [address] Gender: M [place]: gabe : 1965 Requested By: ANN MARIE SCHRADER Order Number: [id number] Reading MD: Jewels Galaviz Measurements Intervals [place] Rate: 105 P: 9 HI: 148 QRS: 63 QRSD: 96 T: 15 QT: 364 QTc: 482 Interpretive Statements SINUS TACHYCARDIA NONSPECIFIC T-WAVE ABNORMALITY ABNORMAL RHYTHM ECG SIMILAR 12/04/16 Electronically Signed On 01-23-2017 7:23:32 EDT by Jewels Galaviz
[2017-01-23 08:36] LABS: BASO % 0.5 % (0.0-1.0); EOS # 0.2 K/mm3 (0.0-0.50); EOS % 3.1 % (0.0-3.0); LARGE UNSTAINED CELL # 0.2 K/mm3 (0.0-0.4); LARGE UNSTAINED CELL % 2.4 % (0.0-4.0); LYMPH # 3.7 K/mm3 (1.5-4.5); LYMPH % 48.5 % (24.0-44.0); MEAN CORPUSCULAR HEMOGLOBIN 28.4 pg (27.0-33.0); MEAN CORPUSCULAR HGB CONC 34.6 g/dl (32.0-36.5); MEAN CORPUSCULAR VOLUME 82.2 fl (80.0-96.0); MONO # 0.4 K/mm3 (0.0-0.8); NEUTROPHILS # 2.9 K/mm3 (1.8-7.7); NEUTROPHILS % 40.4 % (36.0-66.0); PLATELET COUNT, AUTOMATED 202 k/mm3 (150-450); RED CELL DISTRIBUTION WIDTH 11.7 % (11.5-14.5); WHITE BLOOD COUNT 7.2 K/mm3 (4.0-10.0)
[2017-01-23] MEDS: HumaLOG INSULIN (NovoLOG) PER UNIT SC SCH ×4 (08:39→20:49)
[2017-01-23] MEDS: LEVEMIR (INSULIN DETEMIR) 1 UNITS/0.01ML SC SCH ×2 (08:39→20:50)
[2017-01-23 08:56] LABS: ALBUMIN 2.7 GM/DL (3.2-5.2); ALBUMIN/GLOBULIN RATIO 0.77 (1.00-1.93); ALKALINE PHOSPHATASE 46 U/L (45-117); ALT/SGPT 20 U/L (12-78); ANION GAP 9 MEQ/L (8-16); AST/SGOT 13 U/L (15-37); BILIRUBIN,TOTAL 0.3 MG/DL (0.2-1.0); BLOOD UREA NITROGEN 10 MG/DL (7-18); CALCIUM LEVEL 7.9 MG/DL (8.5-10.1); CARBON DIOXIDE LEVEL 23 MEQ/L (21-32); CHLORIDE LEVEL 107 MEQ/L (98-107); CHOLESTEROL LEVEL 140 MG/DL (<200); CREATININE FOR GFR 0.92 MG/DL (0.70-1.30); GLOMERULAR FILTRATION RATE > 60.0 (>56); GLUCOSE, FASTING 272 MG/DL (70-105); POTASSIUM SERUM 3.8 MEQ/L (3.5-5.1); SODIUM LEVEL 139 MEQ/L (136-145); TOTAL PROTEIN 6.2 GM/DL (6.4-8.2); TRIGLYCERIDES LEVEL 265 MG/DL (<150)
[2017-01-23] MEDS: ENOXAPARIN 40 MG/0.4 ML SYRINGE (J1650) SC SCH (10:27)
[2017-01-23] MEDS: ASPIRIN 81 MG ENTERIC TAB PO SCH (20:49)
[2017-01-23] MEDS: METOPROLOL TART 25 MG TABLET PO SCH (20:49)
[2017-01-23 21:33] LABS: ALBUMIN 2.9 GM/DL (3.2-5.2); ANION GAP 8 MEQ/L (8-16); BLOOD UREA NITROGEN 9 MG/DL (7-18); CARBON DIOXIDE LEVEL 27 MEQ/L (21-32); CHLORIDE LEVEL 106 MEQ/L (98-107); CREATININE FOR GFR 0.89 MG/DL (0.70-1.30); GLOMERULAR FILTRATION RATE > 60.0 (>56); GLUCOSE, FASTING 206 MG/DL (70-105); MAGNESIUM LEVEL 1.8 MG/DL (1.8-2.4); PHOSPHORUS LEVEL 3.2 MG/DL (2.5-4.9); POTASSIUM SERUM 3.8 MEQ/L (3.5-5.1); SODIUM LEVEL 141 MEQ/L (136-145)
[2017-01-24] MEDS: NS 1,000 ML IV SCH ×2 (02:52→08:54)
[2017-01-24 05:21] LABS: BASO % 0.5 % (0.0-1.0); EOS # 0.3 K/mm3 (0.0-0.50); EOS % 4.2 % (0.0-3.0); LARGE UNSTAINED CELL # 0.2 K/mm3 (0.0-0.4); LARGE UNSTAINED CELL % 2.1 % (0.0-4.0); LYMPH # 3.4 K/mm3 (1.5-4.5); LYMPH % 44.8 % (24.0-44.0); MEAN CORPUSCULAR HEMOGLOBIN 28.7 pg (27.0-33.0); MEAN CORPUSCULAR HGB CONC 35.8 g/dl (32.0-36.5); MEAN CORPUSCULAR VOLUME 80.2 fl (80.0-96.0); MONO # 0.3 K/mm3 (0.0-0.8); MONO % 4.5 % (0.0-5.0); NEUTROPHILS # 3.2 K/mm3 (1.8-7.7); PLATELET COUNT, AUTOMATED 200 k/mm3 (150-450); RED CELL DISTRIBUTION WIDTH 11.6 % (11.5-14.5); WHITE BLOOD COUNT 7.2 K/mm3 (4.0-10.0)
[2017-01-24 05:41] LABS: ALBUMIN 2.6 GM/DL (3.2-5.2); ALBUMIN/GLOBULIN RATIO 0.76 (1.00-1.93); ALKALINE PHOSPHATASE 46 U/L (45-117); ALT/SGPT 22 U/L (12-78); ANION GAP 7 MEQ/L (8-16); AST/SGOT 19 U/L (15-37); BILIRUBIN,TOTAL 0.2 MG/DL (0.2-1.0); BLOOD UREA NITROGEN 9 MG/DL (7-18); CALCIUM LEVEL 7.6 MG/DL (8.5-10.1); CARBON DIOXIDE LEVEL 26 MEQ/L (21-32); CHLORIDE LEVEL 108 MEQ/L (98-107); CREATININE FOR GFR 0.89 MG/DL (0.70-1.30); GLOMERULAR FILTRATION RATE > 60.0 (>56); GLUCOSE, FASTING 221 MG/DL (70-105); POTASSIUM SERUM 3.8 MEQ/L (3.5-5.1); SODIUM LEVEL 141 MEQ/L (136-145)
[2017-01-24 05:57] VITALS: BP_SYST 140; BP_SYST 170; BP_DIAS 90; BP_DIAS 99
[2017-01-24 07:30] VITALS: BP 166/94
[2017-01-24] MEDS: HumaLOG INSULIN (NovoLOG) PER UNIT SC SCH ×4 (08:53→21:28)
[2017-01-24] MEDS: LEVEMIR (INSULIN DETEMIR) 1 UNITS/0.01ML SC SCH ×2 (08:53→21:27)
[2017-01-24] MEDS: ENOXAPARIN 40 MG/0.4 ML SYRINGE (J1650) SC SCH (08:53)
[2017-01-24] MEDS: METOPROLOL TART 25 MG TABLET PO SCH ×2 (08:53→21:27)
--- NOTE | 2017-01-24 11:05 | IPNPDOC ---
Subjective Date Seen The patient was seen on 01/24/17. Subjective Chief Complaint/HPI The patient is a 51-year-old male admitted with a reason for visit of Pancreatitis. Events since last encounter Eating this am without abd pain, n/v. Had 4 loose BMs overnight, but no BM this am. Run of V-tach on tele when ambulating to BR - no recurrence. Constitutional: Denies: Chills, Fever Pulmonary: Denies: Cough, Dyspnea Cardiovascular: Denies: Chest Pain, Orthopnea, Palpitations Gastrointestinal: Reports: Diarrhea, Denies: Abdominal Pain, Nausea, Vomiting Objective Physical Examination General Exam: Positive: Alert, No Acute Distress Chest Exam: Positive: Clear to auscultation, Normal air movement Heart Exam: Positive: Rate Normal, Regular Rhythm, Negative: Murmurs Abdomen Exam: Positive: Normal bowel sounds, Soft, Negative: Tenderness Male Exam: Negative: Edema Assessment /Plan Problems (1) Acute pancreatitis Status: Acute Response to Treatment: Improving Problem Text: Abdominal pain resolved. Tolerating cons carb diet. d/C IVF BP high (2) Diarrhea Status: Chronic Problem Text: He was admitted for Norovirus in 12/2016, but has intermittent recurrent diarrhea. check GI panel again Start probiotics Consider tx for probable pancreatic insufficiency (3) Diabetes mellitus out of control Status: Chronic Problem Text: continue Levemir insulin 20/40 - increase as needed. continue SSI (4) Non-sustained ventricular tachycardia Status: Acute Problem Text: run of asymptomatic V-tach last night with ambulation GEt cardiac enzymes and f/u EKG. continue BB Monitor on tele (5) H/O gastritis Status: Chronic Response to Treatment: Stable Problem Text: continue PPI (6) Iron deficiency anemia Status: Chronic Response to Treatment: Stable Problem Text: EGD/Colonoscopy done in 2016 - Only showed gastritis (7) Hypertriglyceridemia Status: Acute (8) Hepatomegaly Status: Chronic Problem Text: Fatty liver with Hepatomegaly on CT - defer to PCP need for liver spleen scan to evaluate for cirrhosis in patient with h/o ETOH abuse and fatty liver Plan/VTE VTE Prophylaxis Ordered?: Yes (Lovenox) VS, I&O, 24H, Fishbone Vital Signs/I&O Vital Signs Date Time Temp Pulse Resp B/P Pulse Ox O2 Delivery O2 Flow Rate FiO2 01/24/17 08:53 85 166/94 01/24/17 07:30 99.1 22 95 Room Air I&O- Last 24 Hours up to 6 AM 01/24/17 05:59 Intake Total 6049 ml Output Total 2325 ml Balance 3724 ml Laboratory Data 24H LABS Laboratory Tests 2 01/23/17 11:58: Bedside Glucose (Misc Panel) 214H 01/23/17 15:08: Lactic Acid Level 1.0 01/23/17 16:57: Bedside Glucose (Misc Panel) 197H 01/23/17 20:42: Bedside Glucose (Misc Panel) 231H 01/23/17 20:47: Albumin 2.9L, Blood Urea Nitrogen 9, Creatinine 0.89, Sodium Level 141, Potassium Level 3.8, Chloride Level 106, Carbon Dioxide Level 27, Anion Gap 8, Calcium Level 8.0L, Glomerular Filtration Rate > 60.0, Magnesium Level 1.8, Phosphorus Level 3.2 01/24/17 05:05: Albumin 2.6L, Blood Urea Nitrogen 9, Creatinine 0.89, Sodium Level 141, Potassium Level 3.8, Chloride Level 108H, Carbon Dioxide Level 26, Anion Gap 7L , Calcium Level 7.6L, Glomerular Filtration Rate > 60.0, Aspartate Amino Transf (AST/SGOT) 19, Alanine Aminotransferase (ALT/SGPT) 22, Alkaline Phosphatase 46, Total Bilirubin 0.2, Total Protein 6.0L, Albumin/Globulin Ratio 0.76L, White Blood Count 7.2, Red Blood Count 4.13L, Hemoglobin 11.8L, Hematocrit 33.1L, Mean Corpuscular Volume 80.2, Mean Corpuscular Hemoglobin 28.7, Mean Corpuscular Hemoglobin Concent 35.8, Red Cell Distribution Width 11.6, Platelet Count 200, Neutrophils (%) (Auto) 44.0, Lymphocytes (%) (Auto) 44.8H, Monocytes (%) (Auto) 4.5, Eosinophils (%) (Auto) 4.2H, Basophils (%) (Auto) 0.5, Neutrophils # (Auto) 3.2, Lymphocytes # (Auto) 3.4, Monocytes # (Auto) 0.3, Eosinophils # (Auto) 0.3, Basophils # (Auto) 0.0, Large Unclassified Cells # 0.2 , Large Unclassified Cells % 2.1 CBC/BMP Laboratory Tests 01/23/17 20:47 Anion Gap 8 01/24/17 05:05 Calcium Level 7.6 L, Aspartate Amino Transf (AST/SGOT) 19, Alanine Aminotransferase (ALT/SGPT) 22, Alkaline Phosphatase 46, Total Bilirubin 0.2, Total Protein 6.0 L, Albumin 2.6 L, Red Blood Count 4.13 L, Mean Corpuscular Volume 80.2, Mean Corpuscular Hemoglobin 28.7, Mean Corpuscular Hemoglobin Concent 35.8, Red Cell Distribution Width 11.6, Neutrophils (%) (Auto) 44.0, Lymphocytes (%) (Auto) 44.8 H, Monocytes (%) (Auto) 4.5, Eosinophils (%) (Auto) 4.2 H, Basophils (%) (Auto) 0.5, Neutrophils # (Auto) 3.2, Lymphocytes # (Auto) 3.4, Monocytes # (Auto) 0.3, Eosinophils # (Auto) 0.3, Basophils # (Auto) 0.0 Microbiology Microbiology 01/23/17 Blood Culture, Received Pending 01/23/17 Blood Culture, Received Pending FALGUNI BATES PA-C Jan 24, 2017 11:05
[2017-01-24] MEDS: PANTOPRAZOLE 40MG TAB (PROTONIX) PO SCH (11:36)
[2017-01-24 12:00] VITALS: BP 144/97
[2017-01-24 16:00] VITALS: BP 154/93
[2017-01-24 19:46] VITALS: BP 153/97
[2017-01-24] MEDS: ASPIRIN 81 MG ENTERIC TAB PO SCH (21:27)
--- NOTE | 2017-01-24 22:21 | ECGEPIP ---
Stationary ECG Study [facility] Test Date: 2017-01-24 Pat Name: CASEY GLASS Department: Room: [place] [address] Gender: M [place] [place]: OSMANY : 1965 Requested By: FALGUNI Orr PA-C Order Number: [id number] Reading MD: Levar Otero Measurements Intervals [place] Rate: 82 P: 55 DE: 164 QRS: 1 QRSD: 96 T: 27 QT: 360 QTc: 421 Interpretive Statements SINUS RHYTHM NONSPECIFIC T-WAVE ABNORMALITY SIMILAR 01/22/17 Electronically Signed On 01-24-2017 22:21:28 EDT by Levar Otero
[2017-01-25 00:42] VITALS: BP 158/94
[2017-01-25] MEDS ORDERED: SLF 3 ML SYR IV PRN (01:45)
[2017-01-25 04:45] VITALS: BP 157/91
[2017-01-25 05:19] LABS: MEAN CORPUSCULAR HEMOGLOBIN 28.7 pg (27.0-33.0); MEAN CORPUSCULAR HGB CONC 35.5 g/dl (32.0-36.5); MEAN CORPUSCULAR VOLUME 80.7 fl (80.0-96.0); RED CELL DISTRIBUTION WIDTH 11.8 % (11.5-14.5); WHITE BLOOD COUNT 7.7 K/mm3 (4.0-10.0)
[2017-01-25 05:33] LABS: ALBUMIN 2.8 GM/DL (3.2-5.2); ALBUMIN/GLOBULIN RATIO 0.74 (1.00-1.93); ALKALINE PHOSPHATASE 60 U/L (45-117); ALT/SGPT 22 U/L (12-78); ANION GAP 8 MEQ/L (8-16); AST/SGOT 14 U/L (15-37); BILIRUBIN,TOTAL 0.1 MG/DL (0.2-1.0); BLOOD UREA NITROGEN 8 MG/DL (7-18); CALCIUM LEVEL 8.1 MG/DL (8.5-10.1); CARBON DIOXIDE LEVEL 26 MEQ/L (21-32); CHLORIDE LEVEL 107 MEQ/L (98-107); CREATININE FOR GFR 0.99 MG/DL (0.70-1.30); GLOMERULAR FILTRATION RATE > 60.0 (>56); GLUCOSE, FASTING 232 MG/DL (70-105); POTASSIUM SERUM 3.5 MEQ/L (3.5-5.1); SODIUM LEVEL 141 MEQ/L (136-145); TOTAL PROTEIN 6.6 GM/DL (6.4-8.2)
[2017-01-25] MEDS ORDERED: SLF 3 ML SYR IV SCH (06:00)
[2017-01-25 08:00] VITALS: BP 158/95
[2017-01-25] MEDS: LEVEMIR (INSULIN DETEMIR) 1 UNITS/0.01ML SC SCH (09:20)
[2017-01-25] MEDS: ENOXAPARIN 40 MG/0.4 ML SYRINGE (J1650) SC SCH (09:20)
[2017-01-25 09:21] VITALS: BP 158/95
[2017-01-25] MEDS: PANTOPRAZOLE 40MG TAB (PROTONIX) PO SCH (09:21)
[2017-01-25] MEDS: HumaLOG INSULIN (NovoLOG) PER UNIT SC SCH ×2 (09:21→12:35)
[2017-01-25] MEDS: METOPROLOL TART 25 MG TABLET PO SCH (09:21)
[2017-01-25 12:00] VITALS: BP 156/88
[2017-01-25] MEDS ORDERED: METO25TAB PO (12:31)
[2017-01-25] MEDS ORDERED: INSULANT SC (12:31)
--- NOTE | 2017-01-25 17:57 | DSES ---
DATE OF ADMISSION: 01/23/2017 DATE OF DISCHARGE: 01/25/2017 BRIEF HISTORY AND PHYSICAL: The patient is of 51-year-old patient of Dr. Hernandez with a history of insulin-dependent diabetes who presented with abdominal pain after eating with chills. Found to have a lipase of [address] of the abdomen and pelvis that showed mild pancreatitis. PAST MEDICAL HISTORY: Significant for: 1. Diabetes mellitus, poorly controlled, on insulin. 2. Hypertension. 3. Previous episodes of pancreatitis. 4. History of alcohol abuse. 5. Hyperlipidemia. 6. History of a cerebrovascular accident (CVA) with right-sided residual hemiparesis. 7. Coronary artery disease. 8. Gastroparesis. PERTINENT LABORATORIES ON ADMISSION: White count 7.6, hemoglobin 12.7, platelets 201,000. Sodium 132, potassium 3.9, BUN 13, creatinine 1.23, glucose 554. Amylase 103, lipase 1206. CT of the abdomen and pelvis showed moderate hepatomegaly with fatty infiltration, nondilated biliary tree, minimal acute pancreatitis with a distended bladder. Blood cultures were negative times two. HOSPITAL COURSE: 1. The patient was admitted for acute pancreatitis. He was placed on intravenous (IV) fluids and made nothing by mouth. His diet was gradually advanced. He is tolerating his diet. He has had no recurrence of his abdominal pain, and he will be discharged home. 2. Diarrhea. He did have some diarrhea the day following his admission times two and has had a history of norovirus in the past with intermittent recurrent diarrhea since then. He has had no further bowel movements since yesterday, and therefore gastrointestinal (GI) panel has not been checked. If he continues to have diarrhea, GI panel should be checked as an outpatient. 3. Diabetes mellitus, poorly controlled. He is on Levemir at home, normally 50 units. Will increase it to 60, as that is what he has getting here. Sugars are still little high in the 200s. Further titration of his insulin can be done as an outpatient. He is on consistent-carbohydrate diet. 4. Asymptomatic run of ventricular tachycardia with ambulation. Cardiac enzymes were negative. Followup EKG was stable compared with previous. A beta el was added to his regimen. He has had no recurrent ventricular tachycardia. 5. History of gastritis. He is stable remains on his proton pump inhibitor (PPI). 6. History of iron deficiency anemia. He had an EGD and colonoscopy in 2015. It only showed some gastritis. Again, he is on a PPI. 7. Hypertriglyceridemia. This has been a chronic problem. Likely could be contributing to his pancreatitis. Most recent triglycerides, I think, were better when he was on gemfibrozil that I noticed in the office that was stopped. Did restart it and will defer that to Dr. Hernandez to decide whether to continue this is an outpatient. 8. Hepatomegaly. He had fatty liver and hepatomegaly on his CT scan on this admission. He has a history of alcohol abuse and fatty liver. Possibly liver/spleen scan may be in order as an outpatient. DISPOSITION: He is stable for discharge home to followup with Dr. Hernandez next week. DIET: Consistent carbohydrate. ACTIVITY: As tolerated. MEDICATIONS: - Lantus 60 units at bedtime - metoprolol 25 mg twice a day - atorvastatin 40 mg at bedtime - aspirin 81 mg daily - fenofibrate 135 mg at bedtime - gabapentin 600 mg three times a day - lisinopril 10 mg at bedtime - omeprazole 40 mg daily - vitamin D 50,000 international units weekly - albuterol HFA two puffs four times a day as needed for shortness of breath DISCHARGE DIAGNOSES: 1. Acute pancreatitis. 2. Diabetes mellitus, poorly controlled with hyperglycemia. 3. Asymptomatic run of ventricular tachycardia. 4. History of gastritis. 5. Iron deficiency anemia. 6. Hypertriglyceridemia. 7. Hepatomegaly on CT. 8. Fatty liver on CT. 9. History of alcohol abuse. 10. Recurrent diarrhea.
== END 2017-01-25 14:12 | disposition home or self-care (01) | DRG 282 ==
LOC: M ED 23:43 → M ED INP 01-23 03:57 → M PCU 01-23 12:36
PROVIDERS: ADMIT Internal Medicine; ATTEND Family Medicine
DX: K85.90 Acute pancreatitis without necrosis or infection, unspecified (principal); I47.2 Ventricular tachycardia; K76.0 Fatty (change of) liver, not elsewhere classified; I69.951 Hemiplegia and hemiparesis following unspecified cerebrovascular disease affecting right dominant side; E11.65 Type 2 diabetes mellitus with hyperglycemia; R16.0 Hepatomegaly, not elsewhere classified; F10.21 Alcohol dependence, in remission; D50.9 Iron deficiency anemia, unspecified; J45.909 Unspecified asthma, uncomplicated; E78.1 Pure hyperglyceridemia; R19.7 Diarrhea, unspecified; Z79.82 Long term (current) use of aspirin; Z79.4 Long term (current) use of insulin; Z79.899 Other long term (current) drug therapy; Z90.49 Acquired absence of other specified parts of digestive tract; Z91.010 Allergy to peanuts; Z91.018 Allergy to other foods

== ENCOUNTER → 2017-01-22 | Outpatient (REF) | payer OTHER ==
[~2017-01-22] MED LIST changes: +ASPI81TAEC PO; +CHOL4POW3 PO; +METO25TAB PO; +SUCR1TA PO
[2017-01-22 14:15] LABS: VITAMIN B12 LEVEL 765 PG/ML (247-911)
[2017-01-22 14:16] LABS: FOLATE 16.6 NG/ML (>5.4)
[2017-01-22 14:34] LABS: TOTAL PROTEIN 7.6 GM/DL (6.4-8.2)
[2017-01-23 11:11] LABS: ALBUMIN 4.07 GM/DL (3.29-5.55); ALBUMIN % 53.6 % (55.8-66.1)
== END ==
LOC: M LABNEURO 10:02
PROVIDERS: ATTEND Psychiatry & Neurology Neurology
DX: E11.40 Type 2 diabetes mellitus with diabetic neuropathy, unspecified (principal)

== ENCOUNTER 2017-02-20 14:55 | Emergency (ER) | payer OTHER ==
[~2017-02-20] VITALS: Ht 170.2 cm; Wt 80.6 kg
[~2017-02-20 14:55] MED LIST changes: +ASPI81TAEC PO; +METO25TAB PO
[2017-02-20] MEDS: NITROGLYCERIN 0.4 MG SUBL TABLET SL PRN ×2 (15:15→16:44)
[2017-02-20] MEDS ORDERED: ASPIRIN 81 MG CHEW TABLET PO ONE (15:15)
[2017-02-20 15:41] LABS: BASO % 0.5 % (0.0-1.0); EOS # 0.2 K/mm3 (0.0-0.50); LARGE UNSTAINED CELL # 0.2 K/mm3 (0.0-0.4); LARGE UNSTAINED CELL % 2.1 % (0.0-4.0); LYMPH # 3.3 K/mm3 (1.5-4.5); LYMPH % 42.2 % (24.0-44.0); MEAN CORPUSCULAR HEMOGLOBIN 29.1 pg (27.0-33.0); MEAN CORPUSCULAR HGB CONC 35.9 g/dl (32.0-36.5); MONO # 0.3 K/mm3 (0.0-0.8); MONO % 4.3 % (0.0-5.0); NEUTROPHILS # 3.6 K/mm3 (1.8-7.7); NEUTROPHILS % 47.8 % (36.0-66.0); PLATELET COUNT, AUTOMATED 212 k/mm3 (150-450); RED CELL DISTRIBUTION WIDTH 11.8 % (11.5-14.5); WHITE BLOOD COUNT 7.5 K/mm3 (4.0-10.0)
[2017-02-20 15:42] LABS: VENOUS BASE EXCESS 0.4 (-2.0-2.0); VENOUS O2 SATURATION 91.2 % (60.0-80.0); VENOUS PARTIAL PRESSURE CO2 41.4 mmHg (38.0-50.0); VENOUS PARTIAL PRESSURE O2 59.9 mmHg (30.0-50.0); VENOUS STANDARD HCO3 24.7 MEQ/L; VENOUS TOTAL CO2 26.5 MEQ/L (24.0-28.0)
[2017-02-20 16:13] LABS: ALBUMIN 3.3 GM/DL (3.2-5.2); ALBUMIN/GLOBULIN RATIO 0.85 (1.00-1.93); ALKALINE PHOSPHATASE 69 U/L (45-117); ALT/SGPT 22 U/L (12-78); AST/SGOT 17 U/L (15-37); BILIRUBIN,DIRECT < 0.1 MG/DL (0.0-0.2); BILIRUBIN,TOTAL 0.3 MG/DL (0.2-1.0); TOTAL PROTEIN 7.2 GM/DL (6.4-8.2)
[2017-02-20 16:14] LABS: ANION GAP 7 MEQ/L (8-16); BLOOD UREA NITROGEN 7 MG/DL (7-18); CALCIUM LEVEL 8.6 MG/DL (8.5-10.1); CARBON DIOXIDE LEVEL 27 MEQ/L (21-32); CHLORIDE LEVEL 101 MEQ/L (98-107); CREATININE FOR GFR 1.12 MG/DL (0.70-1.30); GLOMERULAR FILTRATION RATE > 60.0 (>56); POTASSIUM SERUM 4.2 MEQ/L (3.5-5.1); SODIUM LEVEL 135 MEQ/L (136-145)
[2017-02-20 16:19] LABS: GLUCOSE, FASTING 441 MG/DL (70-105)
[2017-02-20 16:44] VITALS: BP 143/74
[2017-02-20] MEDS ORDERED: HumuLIN R (REGULAR) INSULIN (NovoLIN R) **100U/ML** PER UNIT IV ONE (17:00)
[2017-02-20] MEDS ORDERED: NS 1,000 ML IV ONE (17:00)
--- NOTE | 2017-02-20 18:05 | REP ---
CHEST, TWO VIEWS: HISTORY: Chest pain. COMPARISON: 12/10/2016 A few streaky curvilinear bibasilar opacities are present representing a change from the prior exam, left slightly greater than right. The pleural angles are sharp and the heart is not enlarged. The lung burger are otherwise clear. The osseous structures are within normal limits. IMPRESSION: Bibasilar subsegmental atelectatic change, left greater than right is suspected. Certainly, early developing pneumonia could not be excluded. Signed by Alfredo Mancilla DO 02/22/2017 03:43 P
[2017-02-20 22:20] VITALS: BP 174/111
--- NOTE | 2017-02-21 08:39 | ECGEPIP ---
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
--- NOTE | 2017-02-21 08:44 | ECGEPIP ---
Stationary ECG Study 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
== END 2017-02-20 22:36 | disposition home or self-care (01) ==
LOC: EDBD 14:55 → M ED 16:37
DX: E11.65 Type 2 diabetes mellitus with hyperglycemia (principal); R94.31 Abnormal electrocardiogram [ECG] [EKG]; J45.909 Unspecified asthma, uncomplicated; D55.9 Anemia due to enzyme disorder, unspecified; F41.9 Anxiety disorder, unspecified; M54.9 Dorsalgia, unspecified; Z86.73 Personal history of transient ischemic attack (TIA), and cerebral infarction without residual deficits; Z91.018 Allergy to other foods; Z91.010 Allergy to peanuts; Z79.899 Other long term (current) drug therapy; Z79.4 Long term (current) use of insulin; Z79.82 Long term (current) use of aspirin

== ENCOUNTER 2017-03-05 01:37 | Emergency (ER) | payer OTHER ==
[~2017-03-05] VITALS: Ht 170.2 cm; Wt 77.1 kg
[2017-03-05] MEDS ORDERED: NS 1,000 ML IV ONE (02:30)
[2017-03-05 02:38] LABS: BASO # 0.1 K/mm3 (0.0-0.2); BASO % 0.9 % (0.0-1.0); EOS # 0.2 K/mm3 (0.0-0.50); LARGE UNSTAINED CELL # 0.3 K/mm3 (0.0-0.4); LARGE UNSTAINED CELL % 3.5 % (0.0-4.0); LYMPH # 4.3 K/mm3 (1.5-4.5); MEAN CORPUSCULAR HEMOGLOBIN 28.4 pg (27.0-33.0); MEAN CORPUSCULAR HGB CONC 34.3 g/dl (32.0-36.5); MONO # 0.5 K/mm3 (0.0-0.8); MONO % 6.4 % (0.0-5.0); NEUTROPHILS # 3.2 K/mm3 (1.8-7.7); NEUTROPHILS % 38.1 % (36.0-66.0); PLATELET COUNT, AUTOMATED 217 k/mm3 (150-450); VENOUS BASE EXCESS -4.4 (-2.0-2.0); VENOUS O2 SATURATION 97.8 % (60.0-80.0); VENOUS PARTIAL PRESSURE CO2 38.7 mmHg (38.0-50.0); VENOUS STANDARD HCO3 20.8 MEQ/L; VENOUS TOTAL CO2 21.9 MEQ/L (24.0-28.0); WHITE BLOOD COUNT 8.3 K/mm3 (4.0-10.0)
[2017-03-05 02:45] LABS: ANION GAP 12 MEQ/L (8-16); BLOOD UREA NITROGEN 17 MG/DL (7-18); CALCIUM LEVEL 8.4 MG/DL (8.5-10.1); CARBON DIOXIDE LEVEL 23 MEQ/L (21-32); CHLORIDE LEVEL 100 MEQ/L (98-107); CREATININE FOR GFR 1.15 MG/DL (0.70-1.30); GLOMERULAR FILTRATION RATE > 60.0 (>56); SODIUM LEVEL 135 MEQ/L (136-145)
[2017-03-05 02:47] LABS: GLUCOSE, FASTING 481 MG/DL (70-105)
[2017-03-05] MEDS ORDERED: HumuLIN R (REGULAR) INSULIN (NovoLIN R) **100U/ML** PER UNIT SC STA (03:43)
[2017-03-05] MEDS ORDERED: INSULANT SC (05:37)
[2017-03-05 06:31] VITALS: BP 171/110
== END 2017-03-05 06:35 | disposition left against medical advice (07) ==
LOC: EDBD 01:37 → M ED 03:07
DX: E11.65 Type 2 diabetes mellitus with hyperglycemia (principal); R11.10 Vomiting, unspecified; I10 Essential (primary) hypertension; Z79.899 Other long term (current) drug therapy; Z79.82 Long term (current) use of aspirin; Z79.4 Long term (current) use of insulin; Z91.018 Allergy to other foods; Z91.010 Allergy to peanuts; J30.1 Allergic rhinitis due to pollen

== ENCOUNTER 2017-03-17 22:33 | Inpatient (IN) | payer OTHER ==
[~2017-03-17] VITALS: Ht 170.2 cm; Wt 81.6 kg
[2017-03-17] MEDS ORDERED: LISI10TA4 PO (22:47)
[2017-03-17] MEDS ORDERED: OMEP40CA2 PO (22:47)
[2017-03-17] MEDS ORDERED: METO-346 PO (22:47)
[2017-03-17] MEDS ORDERED: VITA50003 PO (22:47)
[2017-03-17] MEDS ORDERED: NORT25CA2 PO (22:47)
[2017-03-17] MEDS ORDERED: TRAM50TA2 PO (22:47)
[2017-03-17] MEDS ORDERED: INSULADS INJ (22:47)
[2017-03-17] MEDS ORDERED: MORPHINE 4 MG/ML 1ML SYRINGE IV PRN (23:15)
[2017-03-17] MEDS ORDERED: ONDANSETRON 4MG/2ML VIAL (J2405) IV ONE (23:15)
[2017-03-17] MEDS ORDERED: NS 1,000 ML IV ONE (23:15)
[2017-03-17 23:23] LABS: BASO # 0.1 K/mm3 (0.0-0.2); BASO % 0.9 % (0.0-1.0); EOS # 0.2 K/mm3 (0.0-0.50); EOS % 2.6 % (0.0-3.0); LARGE UNSTAINED CELL # 0.2 K/mm3 (0.0-0.4); LARGE UNSTAINED CELL % 2.1 % (0.0-4.0); LYMPH # 3.7 K/mm3 (1.5-4.5); LYMPH % 42.8 % (24.0-44.0); MEAN CORPUSCULAR HEMOGLOBIN 28.9 pg (27.0-33.0); MEAN CORPUSCULAR HGB CONC 35.3 g/dl (32.0-36.5); MEAN CORPUSCULAR VOLUME 82.1 fl (80.0-96.0); MONO # 0.4 K/mm3 (0.0-0.8); NEUTROPHILS # 3.9 K/mm3 (1.8-7.7); NEUTROPHILS % 46.6 % (36.0-66.0); PLATELET COUNT, AUTOMATED 213 k/mm3 (150-450); RED CELL DISTRIBUTION WIDTH 12.2 % (11.5-14.5); WHITE BLOOD COUNT 8.4 K/mm3 (4.0-10.0)
[2017-03-17 23:34] LABS: ALBUMIN 3.3 GM/DL (3.2-5.2); ALBUMIN/GLOBULIN RATIO 0.85 (1.00-1.93); ALKALINE PHOSPHATASE 61 U/L (45-117); ALT/SGPT 23 U/L (12-78); ANION GAP 9 MEQ/L (8-16); AST/SGOT 13 U/L (15-37); BILIRUBIN,DIRECT < 0.1 MG/DL (0.0-0.2); BILIRUBIN,TOTAL 0.3 MG/DL (0.2-1.0); BLOOD UREA NITROGEN 12 MG/DL (7-18); CALCIUM LEVEL 9.1 MG/DL (8.5-10.1); CARBON DIOXIDE LEVEL 28 MEQ/L (21-32); CHLORIDE LEVEL 96 MEQ/L (98-107); CREATININE FOR GFR 1.15 MG/DL (0.70-1.30); GLOMERULAR FILTRATION RATE > 60.0 (>56); SODIUM LEVEL 133 MEQ/L (136-145); TOTAL PROTEIN 7.2 GM/DL (6.4-8.2)
[2017-03-17 23:38] LABS: GLUCOSE, FASTING 489 MG/DL (70-105)
[2017-03-18] MEDS ORDERED: ISOVUE-370 76% 100ML VIAL (Q9967) As Ordered ONE (00:25)
[2017-03-18 01:12] LABS: VENOUS O2 SATURATION 89.7 % (60.0-80.0); VENOUS PARTIAL PRESSURE CO2 50.1 mmHg (38.0-50.0); VENOUS PARTIAL PRESSURE O2 57.4 mmHg (30.0-50.0); VENOUS STANDARD HCO3 24.3 MEQ/L
--- NOTE | 2017-03-18 01:20 | REPUSA ---
CLINICAL HISTORY: Abdominal pain. TECHNIQUE: Multiple axial, sagittal and coronal CT images were obtained through the abdomen and pelvi s after administration of intravenous contrast material. COMMENTS: Comparison is made to the prior exam performed on 01/23/2017. Fluid-filled distended stomach. Mild thickening of the proximal small bowels. The liver remains mildly enlarged with decreased uniform attenuation without mass or defect. There is no intra or extrahepatic biliary ductal dilatation. The spleen is normal. The gallbladder is surgically absent. The pancreas is of normal contour and attenuation characteristics. There is no evidence of adrenal mass. Both kidneys demonstrate prompt and equal nephrograms. The kidneys are normal in size, shape and conf iguration. There is no evidence of renal or ureteral mass. No renal or ureteral calculi are identifie d. There is no hydroureter or hydronephrosis. No evidence for appendicitis. There is no other bowel wall thickening. No evidence for small or larg e bowel obstruction. There is no evidence of abdominal ascites or lymphadenopathy. There is no evidence of intrinsic or extrinsic bladder mass. There is no pelvic ascites or lymphadeno angus. Images of the lung bases show no evidence of pleural or parenchymal mass. There are no pleural effusi ons. The bony structures are free of lytic or blastic lesions. Multilevel degenerative changes are seen in volving the thoracolumbar spine. IMPRESSION: Unchanged hepatomegaly with fatty liver infiltration. Fluid-filled distended stomach. Recent ingestion of food versus gastroparesis. This was not present o n prior exam. Mild thickening of the proximal small bowels. Underdistention versus mild enteritis. This was not pre sent on prior exam. Completely resolution of the previously described peripancreatic inflammatory fat stranding. Nondilated biliary tree. Cholecystectomy. This is unchanged. Thank you for your kind referral of this patient.
[2017-03-18 01:41] LABS: OSMOLALITY SERUM 305 MOSM/KG (275-295)
[2017-03-18] MEDS ORDERED: HumuLIN R (REGULAR) INSULIN (NovoLIN R) **100U/ML** PER UNIT IV ONE (01:45)
[2017-03-18] MEDS ORDERED: NS 1,000 ML IV ONE (02:00)
[2017-03-18] MEDS: NS 1,000 ML IV SCH ×4 (02:50→23:23)
[2017-03-18] MEDS ORDERED: ONDANSETRON 4MG/2ML VIAL (J2405) IV PRN (03:00)
[2017-03-18] MEDS: MORPHINE 2 MG/ML 1ML SYRINGE IV PRN ×2 (03:20→06:15)
[2017-03-18 04:30] VITALS: BP 137/82
[2017-03-18] MEDS: HumaLOG INSULIN (NovoLOG) PER UNIT SC SCH ×5 (05:09→20:02)
[2017-03-18] MEDS ORDERED: ALBUTEROL 90 MCG/ACT 8GM HFA INHALER INH PRN (05:15)
--- NOTE | 2017-03-18 05:33 | HPEPDOC ---
Medical History and Physical Date of Admission March 18, 2017 at 02:50 History and Physical HISTORY AND PHYSICAL Date of admission: 03/18/2017 PCP: Dr. Hernandez Chief complaint: Abdominal pain HPI: 51-year-old male with hypertension, diabetes mellitus, hyperlipidemia, carpal tunnel syndrome, history of pancreatitis, history of CVA, CAD, gastroparesis, history of alcohol abuse who presented to the emergency department with abdominal pain and syncope. He states that he had been feeling unwell all day, and had had abdominal pain that came and went all day. He states that it is mostly located in the right upper quadrant. This evening, he had just finished using the bathroom and was walking back to the couch, when he collapsed. According to his , he lost consciousness for several minutes. They deny any head injury however. Upon further questioning, the patient states that he has been urinating quite a bit, and his tells me that he drinks large quantities of water every day. They also are concerned that his blood sugars have been high. They state that he has not missed any doses of insulin. He denies any vomiting, and states that he had a bowel movement this evening. Past medical history: hypertension, diabetes mellitus, hyperlipidemia, carpal tunnel syndrome, history of pancreatitis, history of CVA, CAD, gastroparesis, history of alcohol abuse Past surgical history: Cholecystectomy, ORIF of the right lower extremity in childhood Family history: The patient denies any family members with hypertension or diabetes Social history: The patient does not smoke or use drugs. He states that he used to drink alcohol, but has been sober for over 20 years ago. It sounds like when he did drink, it was quite heavy. Allergies: Grass, olive oil, olives, peanuts, seasonal allergies Review of systems: General: Negative for fever and chills Eyes: Negative for vision changes and ocular discharge ENT: Negative for sore throat and nose bleed Cardiovascular: Negative for chest pain and palpitations Respiratory: Positive for cough and shortness of breath GI: Negative for nausea, vomiting, diarrhea, constipation. Positive for abdominal pain Musculoskeletal: Positive for chronic back pain Skin: Negative for rash Neuro: Negative for headache, positive for dizziness, as well as chronic numbness and tingling of his hands and feet Psych: Negative for suicidal ideation and depression Endocrine: Positive for polyuria and polydipsia : Negative for dysuria Heme: Negative for bruising and bleeding Home meds: See below Physical exam: Vital signs: Vital Sign - Last 24 Hours 03/17/17 03/17/17 03/17/17 03/17/17 22:39 22:48 22:53 23:03 Temp 98.6 Pulse 114 114 110 Resp 18 B/P (MAP) 152/95 (114) 147/95 (112) Pulse Ox 99 96 96 O2 Delivery Room Air 03/17/17 03/17/17 03/17/17 03/17/17 23:08 23:18 23:23 23:26 Pulse 106 Resp 16 B/P (MAP) 149/96 (113) 148/95 (112) Pulse Ox 95 03/17/17 03/17/17 03/17/17 03/17/17 23:33 23:36 23:38 23:48 Pulse 106 106 Resp 16 B/P (MAP) 135/80 (98) Pulse Ox 94 92 03/17/17 03/17/17 03/18/17 03/18/17 23:52 23:53 00:08 00:23 Pulse 102 104 B/P (MAP) 131/80 (97) 131/80 (97) 130/80 (97) Pulse Ox 93 94 03/18/17 03/18/17 03/18/17 03/18/17 00:38 00:53 01:08 01:23 Pulse 100 96 96 94 B/P (MAP) 131/81 (98) 146/79 (101) 142/73 (96) 144/76 (98) Pulse Ox 95 96 95 95 03/18/17 03/18/17 03/18/17 03/18/17 01:38 01:53 02:08 02:23 Pulse 98 92 92 96 Resp 16 B/P (MAP) 167/97 (120) 138/79 (98) 140/86 (104) 145/87 (106) Pulse Ox 96 96 96 96 03/18/17 03/18/17 03/18/17 03/18/17 02:38 02:53 03:08 03:20 Pulse 98 98 96 Resp 16 B/P (MAP) 144/83 (103) 132/80 (97) 130/82 (98) Pulse Ox 95 95 94 94 03/18/17 03/18/17 03/18/17 03/18/17 03:23 03:38 03:53 04:08 Pulse 96 98 94 92 B/P (MAP) 135/89 (104) 141/91 (108) 140/87 (104) 137/85 (102) Pulse Ox 95 95 95 93 03/18/17 03/18/17 03/18/17 04:23 04:30 04:44 Temp 98.2 Pulse 90 93 Resp 20 18 B/P (MAP) 137/82 (100) Pulse Ox 95 96 O2 Delivery Room Air Gen.: awake, alert, no acute distress Eyes: Extraocular movements intact, normal sclera ENT: Dry mucous membranes Cardiovascular: RRR, no murmurs rubs or gallops Lungs: clear to auscultation bilaterally, no rales, rhonchi, or wheeze Abdomen: Soft, normal BS, diffuse TTP but worse over RUQ Extremities: No peripheral edema Neuro: alert and oriented 3, normal speech, no focal deficits Psych: Normal mood with congruent affect Labs and radiology: See below Glucose 489 Lipase 484 Lactate 2.9, repeat 1.5 CT of the abdomen and pelvis shows hepatomegaly with fatty liver infiltrate, as well as a fluid-filled distended stomach with concern for gastroparesis; also shows thickening of the small bowels which may represent mild enteritis Assessment and plan: 51-year-old male with hypertension, diabetes mellitus, hyperlipidemia, carpal tunnel syndrome, history of pancreatitis, history of CVA, CAD, gastroparesis, history of alcohol abuse who presented to the emergency department with abdominal pain and syncope. He is admitted with pancreatitis, hyperglycemia. 1. Abdominal pain: I believe that this is likely multifactorial in nature. His lipase is mildly elevated, and he has a history of pancreatitis, so there is probably some component of pancreatitis at this time. Additionally, he has a history of gastroparesis, and we see on imaging that he he has a fluid-filled distended stomach which is consistent with gastroparesis. This is likely secondary to his uncontrolled diabetes. I also suspect that his current hyperglycemia may be causing some abdominal pain. At this time, we will make him nothing by mouth with IV fluids. We will also use pain control for his pancreatitis and we will start him on Reglan for his likely gastroparesis. If this continues to be a problem, he may need to consider gastric pacing. We will work to improve his glucose control. 2. Hyperglycemia in the setting of diabetes mellitus type 2: The patient's glucose is 489, but he does not have any gap or evidence of acidosis. He received 8 units of insulin in the ER, and has already much improved. We will start him on every 4 hours fingersticks with sliding scale insulin coverage. The patient is usually on Lantus 50 units every night. His A1c is 12.1. Given his reported polyuria, polydipsia, and elevated glucoses at home, I believe that he will eventually need more than 50 units nightly. However, since he is currently nothing by mouth, we will cut this in half, and start out with nightly Levemir 25 units. If the patient begins to eat and as his sliding scale insulin requirements indicate, we can adjust this. 3. Syncope: Etiology is unclear at this time. Given his hyperglycemia, I do wonder if he might have been dehydrated and simply orthostatic. We will check orthostatics, as well as a CT of the head, echocardiogram, and carotid ultrasound. We will monitor him on telemetry. 4. Hypertension: We will hold the patient's home ROGERIO inhibitor and beta el while he is nothing by mouth. 5. Hyperlipidemia: We will hold the patient's fenofibrate and statin while he is nothing by mouth. 6. History of CVA: We will hold the patient's home aspirin and statin while he is nothing by mouth. 7. CAD: Patient denies any current chest pain. We will hold his home aspirin, statin, beta el while he is nothing by mouth. 8. History of alcohol abuse: The patient states he has been sober for over 20 years. We will continue to monitor closely. DVT prophylaxis: Lovenox Dispo: admit as an inpatient to the service of Dr. Schmidt Ray CODE STATUS: Full code Vital Signs Vital Signs Date Time Temp Pulse Resp B/P (MAP) Pulse Ox O2 Delivery O2 Flow Rate FiO2 03/18/17 04:44 18 03/18/17 04:30 98.2 93 137/82 (100) 96 Room Air Laboratory Data Labs 24H Laboratory Tests 2 03/17/17 22:53: White Blood Count 8.4, Red Blood Count 4.66, Hemoglobin 13.5L, Hematocrit 38.2L , Mean Corpuscular Volume 82.1, Mean Corpuscular Hemoglobin 28.9, Mean Corpuscular Hemoglobin Concent 35.3, Red Cell Distribution Width 12.2, Platelet Count 213, Neutrophils (%) (Auto) 46.6, Lymphocytes (%) (Auto) 42.8, Monocytes ( %) (Auto) 5.0, Eosinophils (%) (Auto) 2.6, Basophils (%) (Auto) 0.9, Neutrophils # (Auto) 3.9, Lymphocytes # (Auto) 3.7, Monocytes # (Auto) 0.4, Eosinophils # (Auto) 0.2, Basophils # (Auto) 0.1, Large Unclassified Cells % 2.1 , Large Unclassified Cells # 0.2, Anion Gap 9, Glomerular Filtration Rate > 60.0 , Osmolality 305H, Lactic Acid Level 2.9*H, Calcium Level 9.1, Aspartate Amino Transf (AST/SGOT) 13L, Alanine Aminotransferase (ALT/SGPT) 23, Alkaline Phosphatase 61, Total Bilirubin 0.3, Direct Bilirubin < 0.1, Total Protein 7.2, Albumin 3.3, Albumin/Globulin Ratio 0.85L, Lipase 484H 03/18/17 00:00: Blood Gas Bicarbonate Standard 24.3, Venous Blood pH 7.340, Venous Blood Partial Pressure CO2 50.1H, Venous Blood Partial Pressure O2 57.4H, Venous Blood Total Carbon Dioxide 28.0, Venous Blood HCO3 26.4, Venous Blood Oxygen Saturation 89.7H, Venous Blood Base Excess 0.0 03/18/17 02:05: Bedside Glucose (Misc Panel) 348H 03/18/17 03:12: Lactic Acid Level 1.5 03/18/17 03:41: Estimated Mean Plasma Glucose 301H, Hemoglobin A1c 12.1H 03/18/17 04:57: Bedside Glucose (Misc Panel) 244H CBC/BMP Laboratory Tests 03/17/17 22:53 Red Blood Count 4.66, Mean Corpuscular Volume 82.1, Mean Corpuscular Hemoglobin 28.9, Mean Corpuscular Hemoglobin Concent 35.3, Red Cell Distribution Width 12.2 , Neutrophils (%) (Auto) 46.6, Lymphocytes (%) (Auto) 42.8, Monocytes (%) (Auto ) 5.0, Eosinophils (%) (Auto) 2.6, Basophils (%) (Auto) 0.9, Neutrophils # (Auto ) 3.9, Lymphocytes # (Auto) 3.7, Monocytes # (Auto) 0.4, Eosinophils # (Auto) 0.2, Basophils # (Auto) 0.1 Home Medications Scheduled (Fenofibric Acid Dr) 135 Mg Cap, 135 MG PO QHS Aspirin (Aspirin EC) 81 Mg Tabec, 81 MG PO QHS Atorvastatin Calcium (Lipitor) 20 Mg Tab, 40 MG PO QHS Ergocalciferol (Vitamin D) 50,000 Unit Cap, 1 CAP PO ASDIRECTED 1xW - Saturday Insulin Glargine (Lantus) 100 Unit/Ml Inj, 50 UNIT INJ QHS Lisinopril (Lisinopril) 10 Mg Tab, 10 MG PO QHS Metoprolol Tartrate (Metoprolol Tartrate) 12.5 Mg Halftab, 12.5 MG PO QHS Nortriptyline HCl (Nortriptyline HCl) 25 Mg Cap, 2 CAP PO QHS Omeprazole (Omeprazole) 40 Mg Cap, 40 MG PO QHS Scheduled PRN Albuterol Sulfate (Ventolin Hfa) 200 Puff/8 Gm Aers, 2 PUFF INH QID PRN for SHORTNESS OF BREATH Tramadol HCl (Tramadol HCl) 50 Mg Tab, 1 TAB PO Q6H PRN for PAIN Allergies Coded Allergies: [place] Oil (Unverified Allergy, Severe, THROAT CLOSES/SWELLING , 01/22/17) Olives (Unverified Allergy, Severe, THROAT CLOSES/SWELLING , 01/22/17) Peanut (Verified Allergy, Severe, PEANUT OIL/BUTTER=THROAT CLOSES/DYSPNEA , 01/22/17) Grass (Unverified Allergy, Unknown, 01/22/17) SEASONAL ALLERGIES (Unverified Allergy, Unknown, 01/22/17) ADAL BRYANT March 18, 2017 05:33
[2017-03-18] MEDS: LEVEMIR (INSULIN DETEMIR) 1 UNITS/0.01ML SC SCH ×2 (06:09→20:02)
[2017-03-18] MEDS: METOCLOPRAMIDE INJ 10MG/2ML VIAL (J2765) IV SCH ×4 (06:09→23:24)
[2017-03-18 08:00] VITALS: BP_SYST 114; BP_SYST 123; BP_DIAS 66; BP_DIAS 71; BP_DIAS 75
--- NOTE | 2017-03-18 09:08 | REP ---
CT BRAIN WITHOUT CONTRAST: 03/18/2017 COMPARISON: 05/08/2016, 05/29/2014. HISTORY: Syncope. FINDINGS: The ventricles are midline, symmetric and without dilatation or displacement. There is size is normal for age. The basal ganglia is symmetric and normal. Cerebellum shows some atrophy but the cerebral hemispheres show no atrophy. There is no acute infarct, hemorrhage, edema or mass. White matter tracts grossly intact. Mastoids and the visualized sinuses are clear. The skull base and calvarium show no fracture or focal lesion. I do not see any acute scalp hematoma. IMPRESSION: 1. No intracranial hemorrhage, acute infarct, edema, mass or cerebral atrophy. 2. Some mild cerebellar atrophy as noted before without posterior fossa hemorrhage or mass and the basal cisterns intact. 3. Sinuses, mastoids, skull base and calvarium all intact. Signed by Carlos Hernández MD 03/18/2017 01:28 P
[2017-03-18] MEDS: ENOXAPARIN 40 MG/0.4 ML SYRINGE (J1650) SC SCH (09:27)
--- NOTE | 2017-03-18 09:32 | REP ---
DUPLEX CAROTID SONOGRAPHY: HISTORY: Syncope. FINDINGS: Antegrade flow is observed in both vertebral arteries. RIGHT CAROTID: The right common carotid artery is unremarkable on two-dimensional scanning. There is minimal intimal thickening. There is no significant plaque in the bulb, proximal ICA and proximal ECA on the right side on two-dimensional scanning. Color flow and spectral Doppler interrogation are unremarkable. Velocity Chart Right Carotid: PSV EDV Right CCA 87 cm/s Right ICA 71 cm/s 32 c/s Right ECA 77 cm/s Right ICA/CCA ratio normal 0.8 IMPRESSION: No discernible plaquing. Normal velocities. LEFT CAROTID: The left common carotid artery is unremarkable on two-dimensional scanning as well. Color flow and spectral Doppler interrogation are unremarkable on the left. There is no significant plaquing in the bulb proximal ICA. Velocity Chart Left Carotid: PSV EDV Left CCA 86 cm/s Left ICA 88 cm/s 28 cm/s Left ECA 96 cm/s Left ICA/CCA ratio normal 1.0. IMPRESSION: No significant plaquing seen. Normal Doppler velocities. Signed by See Camacho MD 03/18/2017 12:17 P
[2017-03-18 11:50] VITALS: BP 134/87
[2017-03-18 12:51] LABS: ALBUMIN 2.7 GM/DL (3.2-5.2); ALBUMIN/GLOBULIN RATIO 0.73 (1.00-1.93); ALKALINE PHOSPHATASE 42 U/L (45-117); ALT/SGPT 20 U/L (12-78); ANION GAP 5 MEQ/L (8-16); AST/SGOT 15 U/L (15-37); BILIRUBIN,TOTAL 0.3 MG/DL (0.2-1.0); BLOOD UREA NITROGEN 9 MG/DL (7-18); CALCIUM LEVEL 8.3 MG/DL (8.5-10.1); CARBON DIOXIDE LEVEL 29 MEQ/L (21-32); CHLORIDE LEVEL 108 MEQ/L (98-107); CREATININE FOR GFR 0.88 MG/DL (0.70-1.30); GLOMERULAR FILTRATION RATE > 60.0 (>56); GLUCOSE, FASTING 146 MG/DL (70-105); POTASSIUM SERUM 3.5 MEQ/L (3.5-5.1); SODIUM LEVEL 142 MEQ/L (136-145); TOTAL PROTEIN 6.4 GM/DL (6.4-8.2)
[2017-03-18] MEDS ORDERED: GLUCAGON FOR INJ 1 MG VIAL (J1610) SC PRN (15:00)
[2017-03-18] MEDS ORDERED: GLUCOSE 4 GM CHEW TABLET PO PRN (15:00)
[2017-03-18] MEDS ORDERED: DEXTROSE 50% 50 ML SYRINGE IV PRN (15:00)
[2017-03-18 16:00] VITALS: BP 137/89
--- NOTE | 2017-03-18 16:05 | IPNPDOC ---
Subjective Date Seen The patient was seen on 03/18/17. Subjective Chief Complaint/HPI The patient is a 51-year-old male admitted with a reason for visit of Pancreatitis. Events since last encounter Patient reports doing well. Continues to have mild abdominal pain. He is unclear of his home diabetic regimen. States that his diabetic visits are with Tatyana Hooper. ER nurse states that she had an episode of syncope overnight. Patient notes that he had a syncopal episode prior to admission. Indicated that he had dizziness prior to losing consciousness. Constitutional: Denies: Chills, Fever, Malaise, Weakness Eyes: Denies: Vision change ENT: Denies: Head Aches Skin: Denies: Rash Pulmonary: Denies: Dyspnea, Cough Cardiovascular: Reports: Lt Headedness, Denies: Chest Pain, Palpitations, Orthopnea, Paroxysmal Noc. Dyspnea Gastrointestinal: Reports: Abdominal Pain, Denies: Nausea, Vomiting, Diarrhea, Constipation, Melena Genitourinary: Denies: Dysuria, Frequency, Incontinence Hematologic: Denies: Bruising Neurological: Reports: Confusion Other systems 10 point review systems otherwise negative Objective Physical Examination General Exam: Positive: Alert, Cooperative, No Acute Distress Eye Exam: Positive: Conjunctiva & lids normal, Negative: Sclera icteric ENT Exam: Positive: Atraumatic, Mucous membr. moist/pink Neck Exam: Positive: Supple, Negative: JVD, thyromegaly, +2 carotid pulse wo bruit, Lymphadenopathy Chest Exam: Positive: Clear to auscultation, Normal air movement, Negative: Rales, Rhonchi, Wheezing Heart Exam: Positive: Rate Normal, Regular Rhythm, Normal S1, Normal S2, Negative: Gallops, Murmurs, Rubs Telemetry: Positive: No significant arrhythmia Abdomen Exam: Positive: Normal bowel sounds, Soft, Tenderness (mild epigastric tenderness without guarding or rebound) Extremity Exam: Positive: Normal pulses, Negative: Clubbing, Cyanosis, Edema Skin Exam: Positive: Nl turgor and temperature, Negative: Rash Neuro Exam: Positive: Normal Speech Psych Exam: Positive: Mental status NL, Oriented x 3, Negative: Memory Intact (Patient seems quite confused about his diabetic regimen) Assessment /Plan Problems (1) Abdominal pain Status: Acute Problem Text: Mild elevation of pancreatic enzymes. No acute exacerbating factors. Patient is a former alcoholic, however denies any acute alcohol or drug use. No new medications. He has a history of pancreatitis, which limit increased risk. Mild epigastric pain. Severely uncontrolled diabetes, and patient came in severely dehydrated with a lactic acidosis likely secondary to dehydration. -Continue IV fluids (2) Syncope and collapse Problem Text: Patient was volume contracted on admission, so possibly related to orthostasis or over control of blood pressure. Will hold beta el. -Telemetry -Echo (3) HLD (hyperlipidemia) Problem Text: Home atorvastatin 40 mg at bedtime (4) HTN (hypertension) Problem Text: Blood pressure currently controlled on lisinopril 10 mg daily, and metoprolol 12.5 mg at bedtime. Due to reports of syncope and collapse, will hold beta el. (5) History of CVA (cerebrovascular accident) Problem Text: History of CVA. No current evidence of focal changes (6) Hx of coronary artery disease Problem Text: Patient currently on aspirin and statin (7) Uncontrolled type 2 diabetes mellitus with hyperosmolar nonketotic hyperglycemia Status: Acute Problem Text: Patient seems unable to remember his diabetic regimen. His mental status may be causing him difficulty in managing his diabetes. -slab worker consult Plan/VTE VTE Prophylaxis Ordered?: Yes Plan Plan for continued observation for syncopal episode. Patient will need diabetic plan of care and close outpatient follow-up prior to discharge. VS, I&O, 24H, [facility] Vital Signs/I&O Vital Signs Date Time Temp Pulse Resp B/P (MAP) Pulse Ox O2 Delivery O2 Flow Rate FiO2 03/18/17 11:50 96.0 84 18 134/87 (103) 94 Room Air I&O- Last 24 Hours up to 6 AM 03/18/17 06:00 Intake Total 0 ml Output Total 0 ml Balance 0 ml Laboratory Data 24H LABS Laboratory Tests 2 03/17/17 22:53: White Blood Count 8.4, Red Blood Count 4.66, Hemoglobin 13.5L, Hematocrit 38.2L , Mean Corpuscular Volume 82.1, Mean Corpuscular Hemoglobin 28.9, Mean Corpuscular Hemoglobin Concent 35.3, Red Cell Distribution Width 12.2, Platelet Count 213, Neutrophils (%) (Auto) 46.6, Lymphocytes (%) (Auto) 42.8, Monocytes ( %) (Auto) 5.0, Eosinophils (%) (Auto) 2.6, Basophils (%) (Auto) 0.9, Neutrophils # (Auto) 3.9, Lymphocytes # (Auto) 3.7, Monocytes # (Auto) 0.4, Eosinophils # (Auto) 0.2, Basophils # (Auto) 0.1, Large Unclassified Cells % 2.1 , Large Unclassified Cells # 0.2, Anion Gap 9, Glomerular Filtration Rate > 60.0 , Osmolality 305H, Lactic Acid Level 2.9*H, Calcium Level 9.1, Aspartate Amino Transf (AST/SGOT) 13L, Alanine Aminotransferase (ALT/SGPT) 23, Alkaline Phosphatase 61, Total Bilirubin 0.3, Direct Bilirubin < 0.1, Total Protein 7.2, Albumin 3.3, Albumin/Globulin Ratio 0.85L, Lipase 484H 03/18/17 00:00: Blood Gas Bicarbonate Standard 24.3, Venous Blood pH 7.340, Venous Blood Partial Pressure CO2 50.1H, Venous Blood Partial Pressure O2 57.4H, Venous Blood Total Carbon Dioxide 28.0, Venous Blood HCO3 26.4, Venous Blood Oxygen Saturation 89.7H, Venous Blood Base Excess 0.0 03/18/17 02:05: Bedside Glucose (Misc Panel) 348H 03/18/17 03:12: Lactic Acid Level 1.5 03/18/17 03:41: Estimated Mean Plasma Glucose 301H, Hemoglobin A1c 12.1H 03/18/17 04:57: Bedside Glucose (Misc Panel) 244H 03/18/17 08:38: Bedside Glucose (Misc Panel) 187H 03/18/17 11:56: Bedside Glucose (Misc Panel) 168H 03/18/17 12:18: Anion Gap 5L, Glomerular Filtration Rate > 60.0, Blood Urea Nitrogen 9, Creatinine 0.88, Sodium Level 142#, Potassium Level 3.5, Chloride Level 108H, Carbon Dioxide Level 29, Calcium Level 8.3L, Aspartate Amino Transf (AST/SGOT) 15, Alanine Aminotransferase (ALT/SGPT) 20, Alkaline Phosphatase 42L, Total Bilirubin 0.3, Total Protein 6.4, Albumin 2.7L, Albumin/Globulin Ratio 0.73L, Lipase 176 CBC/BMP Laboratory Tests 03/17/17 22:53 Red Blood Count 4.66, Mean Corpuscular Volume 82.1, Mean Corpuscular Hemoglobin 28.9, Mean Corpuscular Hemoglobin Concent 35.3, Red Cell Distribution Width 12.2 , Neutrophils (%) (Auto) 46.6, Lymphocytes (%) (Auto) 42.8, Monocytes (%) (Auto ) 5.0, Eosinophils (%) (Auto) 2.6, Basophils (%) (Auto) 0.9, Neutrophils # (Auto ) 3.9, Lymphocytes # (Auto) 3.7, Monocytes # (Auto) 0.4, Eosinophils # (Auto) 0.2, Basophils # (Auto) 0.1 03/18/17 12:18 Calcium Level 8.3 L, Aspartate Amino Transf (AST/SGOT) 15, Alanine Aminotransferase (ALT/SGPT) 20, Alkaline Phosphatase 42 L, Total Bilirubin 0.3, Total Protein 6.4, Albumin 2.7 L FELICITA DENNY MD March 18, 2017 16:05
[2017-03-18 20:07] VITALS: BP 142/88
[2017-03-18 20:25] VITALS: BP 156/106
[2017-03-19] VITALS: BP 162/98
[2017-03-19] MEDS ORDERED: ACETAMINOPHEN 500 MG TAB PO PRN (00:30)
[2017-03-19 04:00] VITALS: BP 131/87
[2017-03-19] MEDS: NS 1,000 ML IV SCH (05:36)
[2017-03-19] MEDS: METOCLOPRAMIDE INJ 10MG/2ML VIAL (J2765) IV SCH ×4 (05:36→23:22)
[2017-03-19 05:48] LABS: BASO % 0.5 % (0.0-1.0); EOS # 0.2 K/mm3 (0.0-0.50); EOS % 3.4 % (0.0-3.0); LARGE UNSTAINED CELL # 0.1 K/mm3 (0.0-0.4); LARGE UNSTAINED CELL % 2.1 % (0.0-4.0); LYMPH # 2.9 K/mm3 (1.5-4.5); LYMPH % 41.4 % (24.0-44.0); MEAN CORPUSCULAR HEMOGLOBIN 28.7 pg (27.0-33.0); MEAN CORPUSCULAR HGB CONC 35.1 g/dl (32.0-36.5); MEAN CORPUSCULAR VOLUME 81.8 fl (80.0-96.0); MONO # 0.4 K/mm3 (0.0-0.8); MONO % 5.1 % (0.0-5.0); NEUTROPHILS # 3.2 K/mm3 (1.8-7.7); NEUTROPHILS % 47.5 % (36.0-66.0); PLATELET COUNT, AUTOMATED 194 k/mm3 (150-450); RED CELL DISTRIBUTION WIDTH 12.1 % (11.5-14.5); WHITE BLOOD COUNT 6.7 K/mm3 (4.0-10.0)
[2017-03-19 06:13] LABS: ALBUMIN 2.5 GM/DL (3.2-5.2); ALBUMIN/GLOBULIN RATIO 0.68 (1.00-1.93); ALKALINE PHOSPHATASE 35 U/L (45-117); ALT/SGPT 25 U/L (12-78); ANION GAP 6 MEQ/L (8-16); AST/SGOT 18 U/L (15-37); BILIRUBIN,TOTAL 0.3 MG/DL (0.2-1.0); CALCIUM LEVEL 7.9 MG/DL (8.5-10.1); CARBON DIOXIDE LEVEL 27 MEQ/L (21-32); CHLORIDE LEVEL 110 MEQ/L (98-107); CREATININE FOR GFR 0.77 MG/DL (0.70-1.30); GLOMERULAR FILTRATION RATE > 60.0 (>56); GLUCOSE, FASTING 90 MG/DL (70-105); MAGNESIUM LEVEL 1.9 MG/DL (1.8-2.4); POTASSIUM SERUM 3.4 MEQ/L (3.5-5.1); SODIUM LEVEL 143 MEQ/L (136-145); TOTAL PROTEIN 6.2 GM/DL (6.4-8.2)
[2017-03-19 06:32] LABS: BLOOD UREA NITROGEN 4 MG/DL (7-18)
[2017-03-19 07:30] VITALS: BP 164/98
[2017-03-19] MEDS: HumaLOG INSULIN (NovoLOG) PER UNIT SC SCH ×4 (07:30→21:27)
[2017-03-19] MEDS: ENOXAPARIN 40 MG/0.4 ML SYRINGE (J1650) SC SCH (08:23)
--- NOTE | 2017-03-19 09:56 | IPNPDOC ---
Subjective Date Seen The patient was seen on 03/19/17. Subjective Chief Complaint/HPI The patient is a 51-year-old male admitted with a reason for visit of Pancreatitis. Objective Physical Examination General Exam: Positive: Alert, Cooperative, No Acute Distress Eye Exam: Positive: Conjunctiva & lids normal, Negative: Sclera icteric ENT Exam: Positive: Atraumatic, Mucous membr. moist/pink Neck Exam: Positive: Supple, Negative: JVD, thyromegaly, +2 carotid pulse wo bruit, Lymphadenopathy Chest Exam: Positive: Clear to auscultation, Normal air movement, Negative: Rales, Rhonchi, Wheezing Heart Exam: Positive: Rate Normal, Regular Rhythm, Normal S1, Normal S2, Negative: Gallops, Murmurs, Rubs Telemetry: Positive: No significant arrhythmia Abdomen Exam: Positive: Normal bowel sounds, Soft, Tenderness (mild epigastric tenderness without guarding or rebound) Extremity Exam: Positive: Normal pulses, Negative: Clubbing, Cyanosis, Edema Skin Exam: Positive: Nl turgor and temperature, Negative: Rash Neuro Exam: Positive: Normal Speech Psych Exam: Positive: Mental status NL, Oriented x 3, Negative: Memory Intact (Patient seems quite confused about his diabetic regimen) Assessment /Plan Problems (1) Abdominal pain Status: Acute Problem Text: 03/19/2017: lipase back to normal. tolerating clears. Advance diet. Mild elevation of pancreatic enzymes. No acute exacerbating factors. Patient is a former alcoholic, however denies any acute alcohol or drug use. No new medications. He has a history of pancreatitis, which limit increased risk. Mild epigastric pain. Severely uncontrolled diabetes, and patient came in severely dehydrated with a lactic acidosis likely secondary to dehydration. -Continue IV fluids (2) Syncope and collapse Problem Text: 03/19/2017: telemetry unremarkable. States unsteady on feet due to lack of cane. Echo pending. beta el on hold. Lisinopril resumed today due to HTN. Rate controlled currently. Patient was volume contracted on admission, so possibly related to orthostasis or over control of blood pressure. Will hold beta el. -Telemetry -Echo (3) HLD (hyperlipidemia) Problem Text: Home atorvastatin 40 mg at bedtime. resume at home dosing. (4) HTN (hypertension) Problem Text: 03/19/2017: resumed Lisinopril. metoprolol on HOLD Blood pressure currently controlled on lisinopril 10 mg daily, and metoprolol 12.5 mg at bedtime. Due to reports of syncope and collapse, will hold beta el. (5) History of CVA (cerebrovascular accident) Problem Text: History of CVA. No current evidence of focal changes (6) Hx of coronary artery disease Problem Text: Patient currently on aspirin and statin (7) Uncontrolled type 2 diabetes mellitus with hyperosmolar nonketotic hyperglycemia Status: Acute Problem Text: Patient seems unable to remember his diabetic regimen. His mental status may be causing him difficulty in managing his diabetes. -therapeutic activities services worker consult (8) Weakness status post cerebrovascular accident Problem Text: right side weakness. uses cane at baseline. PT eval ordered Plan/VTE VTE Prophylaxis Ordered?: Yes Plan Attending note: I saw and evaluated the patient, and agreed plan of care as discussed and documented by Kayleen Hudson. Echo is still pending, and is planned for later this evening. Patient reports no further symptoms of dizziness, lightheadedness, or syncope. Very likely that the patient experienced orthostasis as he was volume contracted on admission. Once again, patient has no idea of what diabetic medications he is on at home. He states that his tends to help him with his medications. Patient family services consult ordered to ensure that he has a good outpatient plan of care as soon as he is ready for discharge. Felicita Denny MD VS, I&O, 24H, [facility] Vital Signs/I&O Vital Signs Date Time Temp Pulse Resp B/P (MAP) Pulse Ox O2 Delivery O2 Flow Rate FiO2 03/19/17 07:30 97.0 85 20 164/98 (120) 99 Room Air I&O- Last 24 Hours up to 6 AM 03/19/17 06:00 Intake Total 5910 ml Output Total 925 ml Balance 4985 ml Laboratory Data 24H LABS Laboratory Tests 2 03/18/17 11:56: Bedside Glucose (Misc Panel) 168H 03/18/17 12:18: Anion Gap 5L, Glomerular Filtration Rate > 60.0, Blood Urea Nitrogen 9, Creatinine 0.88, Sodium Level 142#, Potassium Level 3.5, Chloride Level 108H, Carbon Dioxide Level 29, Calcium Level 8.3L, Aspartate Amino Transf (AST/SGOT) 15, Alanine Aminotransferase (ALT/SGPT) 20, Alkaline Phosphatase 42L, Total Bilirubin 0.3, Total Protein 6.4, Albumin 2.7L, Albumin/Globulin Ratio 0.73L, Lipase 176 03/18/17 17:39: Bedside Glucose (Misc Panel) 144H 03/18/17 19:54: Bedside Glucose (Misc Panel) 229H 03/19/17 05:30: White Blood Count 6.7, Red Blood Count 4.37, Hemoglobin 12.6L, Hematocrit 35.8L , Mean Corpuscular Volume 81.8, Mean Corpuscular Hemoglobin 28.7, Mean Corpuscular Hemoglobin Concent 35.1, Red Cell Distribution Width 12.1, Platelet Count 194, Neutrophils (%) (Auto) 47.5, Lymphocytes (%) (Auto) 41.4, Monocytes ( %) (Auto) 5.1H, Eosinophils (%) (Auto) 3.4H, Basophils (%) (Auto) 0.5, Neutrophils # (Auto) 3.2, Lymphocytes # (Auto) 2.9, Monocytes # (Auto) 0.4, Eosinophils # (Auto) 0.2, Basophils # (Auto) 0.0, Large Unclassified Cells % 2.1 , Large Unclassified Cells # 0.1, Anion Gap 6L, Glomerular Filtration Rate > 60.0, Blood Urea Nitrogen 4#L, Creatinine 0.77, Sodium Level 143, Potassium Level 3.4L, Chloride Level 110H, Carbon Dioxide Level 27, Calcium Level 7.9L, Aspartate Amino Transf (AST/SGOT) 18, Alanine Aminotransferase (ALT/SGPT) 25, Alkaline Phosphatase 35L, Total Bilirubin 0.3, Total Protein 6.2L, Albumin 2.5L , Magnesium Level 1.9, Albumin/Globulin Ratio 0.68L CBC/BMP Laboratory Tests 03/18/17 12:18 Calcium Level 8.3 L, Aspartate Amino Transf (AST/SGOT) 15, Alanine Aminotransferase (ALT/SGPT) 20, Alkaline Phosphatase 42 L, Total Bilirubin 0.3, Total Protein 6.4, Albumin 2.7 L 03/19/17 05:30 Calcium Level 7.9 L, Aspartate Amino Transf (AST/SGOT) 18, Alanine Aminotransferase (ALT/SGPT) 25, Alkaline Phosphatase 35 L, Total Bilirubin 0.3, Total Protein 6.2 L, Albumin 2.5 L, Red Blood Count 4.37, Mean Corpuscular Volume 81.8, Mean Corpuscular Hemoglobin 28.7, Mean Corpuscular Hemoglobin Concent 35.1, Red Cell Distribution Width 12.1, Neutrophils (%) (Auto) 47.5, Lymphocytes (%) (Auto) 41.4, Monocytes (%) (Auto) 5.1 H, Eosinophils (%) (Auto) 3.4 H, Basophils (%) (Auto) 0.5, Neutrophils # (Auto) 3.2, Lymphocytes # (Auto) 2.9, Monocytes # (Auto) 0.4, Eosinophils # (Auto) 0.2, Basophils # (Auto) 0.0 Soni Hudson March 19, 2017 09:56 FELICITA DENNY MD March 19, 2017 16:37
[2017-03-19] MEDS ORDERED: OMEPRAZOLE 20 MG CAP PO ONE (10:00)
[2017-03-19] MEDS: ATORVASTATIN 20 MG TAB PO SCH (11:00)
[2017-03-19] MEDS: LISINOPRIL 10 MG TAB PO SCH (11:02)
[2017-03-19 11:15] VITALS: BP 140/80
[2017-03-19 14:00] VITALS: BP 140/50
[2017-03-19] MEDS: LEVEMIR (INSULIN DETEMIR) 1 UNITS/0.01ML SC SCH (21:26)
[2017-03-19 22:00] VITALS: BP 142/98
[2017-03-20] MEDS: METOCLOPRAMIDE INJ 10MG/2ML VIAL (J2765) IV SCH ×2 (05:21→12:00)
[2017-03-20 05:46] LABS: BASO % 0.4 % (0.0-1.0); EOS # 0.2 K/mm3 (0.0-0.50); LARGE UNSTAINED CELL # 0.1 K/mm3 (0.0-0.4); LARGE UNSTAINED CELL % 2.2 % (0.0-4.0); LYMPH # 3.2 K/mm3 (1.5-4.5); LYMPH % 49.9 % (24.0-44.0); MEAN CORPUSCULAR HEMOGLOBIN 29.2 pg (27.0-33.0); MEAN CORPUSCULAR HGB CONC 34.7 g/dl (32.0-36.5); MONO # 0.3 K/mm3 (0.0-0.8); MONO % 4.8 % (0.0-5.0); NEUTROPHILS # 2.5 K/mm3 (1.8-7.7); NEUTROPHILS % 38.8 % (36.0-66.0); PLATELET COUNT, AUTOMATED 195 k/mm3 (150-450); RED CELL DISTRIBUTION WIDTH 11.8 % (11.5-14.5); WHITE BLOOD COUNT 6.3 K/mm3 (4.0-10.0)
[2017-03-20 06:00] VITALS: BP 127/78
[2017-03-20 06:09] LABS: ANION GAP 7 MEQ/L (8-16); BLOOD UREA NITROGEN 6 MG/DL (7-18); CARBON DIOXIDE LEVEL 26 MEQ/L (21-32); CHLORIDE LEVEL 107 MEQ/L (98-107); CREATININE FOR GFR 0.97 MG/DL (0.70-1.30); GLOMERULAR FILTRATION RATE > 60.0 (>56); GLUCOSE, FASTING 240 MG/DL (70-105); POTASSIUM SERUM 3.4 MEQ/L (3.5-5.1); SODIUM LEVEL 140 MEQ/L (136-145)
[2017-03-20 06:10] LABS: ALBUMIN 2.6 GM/DL (3.2-5.2); ALBUMIN/GLOBULIN RATIO 0.65 (1.00-1.93); ALKALINE PHOSPHATASE 54 U/L (45-117); ALT/SGPT 23 U/L (12-78); AST/SGOT 14 U/L (15-37); BILIRUBIN,TOTAL 0.2 MG/DL (0.2-1.0); MAGNESIUM LEVEL 1.9 MG/DL (1.8-2.4); TOTAL PROTEIN 6.6 GM/DL (6.4-8.2)
[2017-03-20] MEDS ORDERED: POTASSIUM CHLORIDE 10 MEQ SR TABLET PO ONE (07:30)
[2017-03-20] MEDS: ENOXAPARIN 40 MG/0.4 ML SYRINGE (J1650) SC SCH (08:42)
[2017-03-20 08:43] VITALS: BP 127/78
[2017-03-20] MEDS: ATORVASTATIN 20 MG TAB PO SCH (08:43)
[2017-03-20] MEDS: HumaLOG INSULIN (NovoLOG) PER UNIT SC SCH ×2 (08:43→12:56)
[2017-03-20] MEDS: LISINOPRIL 10 MG TAB PO SCH (08:43)
--- NOTE | 2017-03-21 10:41 | DSES ---
DATE OF ADMISSION: 03/18/2017 DATE OF DISCHARGE: 03/20/17 ATTENDING PHYSICIAN: Dr. Keshav Walden. PRIMARY CARE PROVIDER: Tatyana Hooper and Dr. Mynor Hernandez. HISTORY OF PRESENT ILLNESS: This is a 51-year-old gentleman with past medical history of hypertension, diabetes, hyperlipidemia, carpal tunnel syndrome, prior history of pancreatitis, history of cerebrovascular accident (CVA), coronary artery disease (CAD), gastroparesis and alcohol abuse with several years of sobriety, presented to the emergency department on 03/18/2017 for abdominal pain and syncope. Patient states he had been feeling unwell all day, had abdominal pain, it has come and gone throughout the day, mostly located to the right upper quadrant. Patient collapsed at home, had a positive loss of consciousness (LOC) for several minutes but did not hit his head. Patient did admit to having significant increase in urination and that patient had been drinking significant amount of water throughout the day and noting significant hyperglycemia as well. Patient was subsequently admitted. HOSPITAL COURSE: Patient was kept n.p.o., aggressively hydrated with IV fluids. Syncope was felt possibly secondary to orthostasis. Patient was monitored in progressive care unit bed with no abnormal cardiac rhythms. Echocardiogram was completed. Results are pending. Patient has previously had a carotid ultrasound. Her cardiology including nuclear stress test June 2016 through [facility], Dr. Varghese Blake. Patient's diet was slowly advanced. He has tolerated well. Lipase returned to normal within [address] IMAG[address]. CT abdomen and pelvis completed. Patient had some mild thickening of proximal small bowel, under distention versus mild enteritis. Unchanged hepatomegaly with fatty liver infiltration. 2. Carotid ultrasound which was negative. 3. CT of the brain which showed no intracranial hemorrhage. Mild cerebellar atrophy. CONSULTS: None. PHYSICAL EXAMINATION: Blood pressure 127/78, heart rate 90, respiratory rate 16 , temperature 97.9, oxygen saturation 97% on room air. General: Patient is resting comfortably at the side of his bed. Neck is supple without lymphadenopathy or jugular venous distention (JVD). Cardiovascular: Heart rate and rhythm are regular. Pulmonary: Lungs are clear. Abdomen is soft and nontender with positive bowel sounds times all four quadrants. Bilateral lower extremities are without any edema. ASSESSMENT: 1. Pancreatitis. 2. Syncope. 3. Diabetes. 4. History of coronary artery disease (CAD). 5. History of cerebrovascular accident (CVA). 6. Gastroparesis. 7. Fatty liver infiltration. PLAN: Patient will be discharged home. Diet is 2 gram sodium carbohydrate consistent. Activity is as tolerated and ambulation with his cane as he has previously used. He will follow up with his primary care provider within the next 5 days. Medications are as follows: - aspirin enteric coated one by mouth daily at bedtime, 81 mg - atorvastatin 20 mg tablets two by mouth daily at bedtime - fenofibric acid 135 mg capsule one by mouth daily at bedtime - long active glargine insulin 50 units subcutaneous daily at bedtime - lisinopril 10 mg by mouth daily at bedtime - nortriptyline 25 mg capsules two by mouth daily at bedtime - omeprazole 40 mg capsule by mouth daily at bedtime Public Health has also been consulted to verify patient's medications as he does not seem to understand his medication regimen, but will also be helpful to have his blood pressures monitored given his recent syncope. 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 Due to his syncope, most likely this is related to orthostasis with excessive hydration and urination at home most likely secondary to his uncontrolled diabetes. Patient is in coordination with care rep through primary care physician office and we recommend that she continue to follow. Regarding patient's fatty liver infiltration, it is recommended to have a hepatitis C workup as well as monitor fatty liver for cirrhosis in the alf which increases risk of hepatocellular carcinoma. Patient is discharged in stable satisfactory condition with no further questions at time of discharge. ANTWON
--- NOTE | 2017-03-21 16:23 | ECHO ---
DATE OF PROCEDURE: 03/19/2017 REFERRING PHYSICIAN: Dr. Mohini Delgado INDICATION: Syncope. HEIGHT: 170 cm WEIGHT: 80 kg MEASUREMENTS: Aortic root: 3.5 cm Left atrium: 3.1 cm LVOT: 2.4 cm Left ventricular septum: 1.0-1.6 cm Posterior wall: 1.04 cm Left ventricle diastole: 4.6 cm Inferior vena cava: 1.7 cm DOPPLER MEASUREMENTS: Aortic valve velocity: 97.9 cm/s LVOT velocity: 85.0 cm/s LVOT VTI: 16.8 cm Mitral E velocity: 69.1 cm/s Mitral A velocity:68.9 cm/s Mitral deceleration time: 144 ms Pulmonary artery systolic pressure 22 mmHg by pulmonary acceleration time. MITRAL ANNULAR TISSUE DOPPLER: E-prime septal: 6.2 cm/s E-prime lateral: 7.6 cm/s DESCRIPTION: Rhythm was sinus. Image quality was fair. No pericardial effusion. This is a 2D, M-mode, color flow Doppler and pulse wave Doppler examination including mitral annular tissue Doppler. No pericardial effusion. CONCLUSIONS: 1. Moderate focal hypertrophy of the basal anterior ventricle septum without dynamic left ventricular outflow tract (LVOT) obstruction and without systolic anterior motion of the mitral leaflets. Normal left ventricle (LV) wall thickness elsewhere. Normal LV wall motion and wall thickening. Normal LV systolic function. Left ventricle ejection fraction (LVEF) 60-65 by visual estimate. 2. Grade 1 LV diastolic dysfunction (impaired relaxation filling pattern). 3. Otherwise normal appearing echocardiogram Doppler.
== END 2017-03-20 14:18 | disposition home or self-care (01) | DRG 282 ==
LOC: EDBD 22:33 → M ED 03-18 01:08 → M ED INP 03-18 02:50 → M PCU 03-18 20:19 → M MSPAV 03-19 11:09
PROVIDERS: ADMIT Hospitalist; ATTEND Family Medicine
DX: K85.90 Acute pancreatitis without necrosis or infection, unspecified (principal); E87.2 Acidosis; E11.43 Type 2 diabetes mellitus with diabetic autonomic (poly)neuropathy; K76.0 Fatty (change of) liver, not elsewhere classified; E11.65 Type 2 diabetes mellitus with hyperglycemia; R55 Syncope and collapse; I69.351 Hemiplegia and hemiparesis following cerebral infarction affecting right dominant side; I10 Essential (primary) hypertension; E78.5 Hyperlipidemia, unspecified; I25.10 Atherosclerotic heart disease of native coronary artery without angina pectoris; J30.1 Allergic rhinitis due to pollen; F10.21 Alcohol dependence, in remission; Z79.82 Long term (current) use of aspirin; Z79.4 Long term (current) use of insulin; Z90.49 Acquired absence of other specified parts of digestive tract; Z91.010 Allergy to peanuts; Z91.018 Allergy to other foods; Z79.899 Other long term (current) drug therapy

== ENCOUNTER → 2017-03-28 | Outpatient (REF) | payer OTHER ==
[~2017-03-28] MED LIST changes: +INSULADS INJ; +METO-346 PO; +NORT25CA2 PO; +VITA50003 PO
== END ==
LOC: M SFHCCLAY 13:48
PROVIDERS: ATTEND Nurse Practitioner Family
DX: E10.65 Type 1 diabetes mellitus with hyperglycemia (principal); E78.5 Hyperlipidemia, unspecified; E55.9 Vitamin D deficiency, unspecified

== ENCOUNTER 2017-05-27 00:26 | Emergency (ER) | payer OTHER ==
[~2017-05-27] VITALS: Ht 170.2 cm; Wt 78.2 kg
[~2017-05-27 00:26] MED LIST changes: +ASPI1TAB15 PO; -ASPI81TA7 PO; +METO25TA4 PO; -METO25TAB PO; +VITA1CAP40 PO; -VITA50003 PO
[2017-05-27] MEDS ORDERED: NORCO, ANEXSIA 5/325MG TABLET (HYDROcodone/ACETAMINOPHEN) PO ONE (06:30)
[2017-05-27] MEDS ORDERED: NORCOTAB PO (07:16)
--- NOTE | 2017-05-27 07:30 | REP ---
Clinical: Trauma. Technique: AP, lateral, bilateral oblique views of the right ankle. Findings: Age-related changes are appreciated along with mild overlying soft tissue swelling. No acute fracture or dislocation. Ankle mortise is intact. Lateral view demonstrates small calcaneal heal spur and vascular calcifications. Impression: Age-related changes as noted above. No acute fracture or dislocation. Signed by Tariq Mosqueda MD 05/27/2017 07:21 A
--- NOTE | 2017-05-27 07:32 | REP ---
Clinical: Trauma. Technique: AP, lateral, bilateral oblique views right foot . Findings: The osseous structures and joint spaces are intact and without acute fracture or dislocation. Age-related degenerative changes are appreciated primarily involving the tarsometatarsal and interphalangeal joints. Surrounding soft tissues are unremarkable. No subcutaneous emphysema or radiodense foreign body. Impression: Age-related degenerative changes. No acute fracture or dislocation. Signed by Tariq Mosqueda MD 05/27/2017 07:24 A
[2017-05-27 07:37] VITALS: BP 137/79
== END 2017-05-27 07:33 | disposition home or self-care (01) ==
LOC: M ED 00:26
DX: S93.401A Sprain of unspecified ligament of right ankle, initial encounter (principal); S93.601A Unspecified sprain of right foot, initial encounter; X50.1XXA Overexertion from prolonged static or awkward postures, initial encounter; Y92.007 Garden or yard of unspecified non-institutional (private) residence as the place of occurrence of the external cause; Y93.89 Activity, other specified; Y99.8 Other external cause status; I25.10 Atherosclerotic heart disease of native coronary artery without angina pectoris; I25.2 Old myocardial infarction; I10 Essential (primary) hypertension; J45.909 Unspecified asthma, uncomplicated; E11.9 Type 2 diabetes mellitus without complications; E78.9 Disorder of lipoprotein metabolism, unspecified; M54.5 Low back pain; F41.9 Anxiety disorder, unspecified; Z79.899 Other long term (current) drug therapy; Z79.82 Long term (current) use of aspirin; Z79.4 Long term (current) use of insulin; Z91.018 Allergy to other foods; Z91.010 Allergy to peanuts

== ENCOUNTER → 2017-06-12 | Outpatient (REF) | payer OTHER ==
[~2017-06-12] MED LIST changes: +NORCOTAB PO
[2017-06-12 18:38] LABS: MEAN CORPUSCULAR HEMOGLOBIN 29.1 pg (27.0-33.0); MEAN CORPUSCULAR HGB CONC 34.8 g/dl (32.0-36.5); MEAN CORPUSCULAR VOLUME 83.8 fl (80.0-96.0); RED CELL DISTRIBUTION WIDTH 12.1 % (11.5-14.5); WHITE BLOOD COUNT 7.1 K/mm3 (4.0-10.0)
[2017-06-12 19:36] LABS: ALBUMIN 3.4 GM/DL (3.2-5.2); ALBUMIN/GLOBULIN RATIO 0.87 (1.00-1.93); ALKALINE PHOSPHATASE 98 U/L (45-117); ALT/SGPT 23 U/L (12-78); ANION GAP 10 MEQ/L (8-16); AST/SGOT 12 U/L (15-37); BILIRUBIN,TOTAL 0.2 MG/DL (0.2-1.0); BLOOD UREA NITROGEN 11 MG/DL (7-18); CALCIUM LEVEL 8.8 MG/DL (8.5-10.1); CARBON DIOXIDE LEVEL 24 MEQ/L (21-32); CHLORIDE LEVEL 99 MEQ/L (98-107); CHOLESTEROL LEVEL 134 MG/DL (<200); CREATININE FOR GFR 1.05 MG/DL (0.70-1.30); GLOMERULAR FILTRATION RATE > 60.0 (>56); POTASSIUM SERUM 4.7 MEQ/L (3.5-5.1); SODIUM LEVEL 133 MEQ/L (136-145); TOTAL PROTEIN 7.3 GM/DL (6.4-8.2); TRIGLYCERIDES LEVEL 209 MG/DL (<150)
[2017-06-12 19:50] LABS: GLUCOSE, FASTING 475 MG/DL (70-105)
== END ==
LOC: M SFHCCLAY 11:04
PROVIDERS: ATTEND Nurse Practitioner Family
DX: E11.69 Type 2 diabetes mellitus with other specified complication (principal); E78.5 Hyperlipidemia, unspecified; E55.9 Vitamin D deficiency, unspecified

== ENCOUNTER → 2017-09-13 | Outpatient (REF) | payer OTHER ==
[~2017-09-13] MED LIST changes: +DOK100TA; +LISI40TAB; +METF500T13; +TOUJ1.2I; +TRAM50TA2
[2017-09-13 16:19] LABS: MEAN CORPUSCULAR HEMOGLOBIN 28.8 pg (27.0-33.0); MEAN CORPUSCULAR HGB CONC 35.6 g/dl (32.0-36.5); MEAN CORPUSCULAR VOLUME 80.9 fl (80.0-96.0); PLATELET COUNT, AUTOMATED 219 10^3/uL (150-450); RED CELL DISTRIBUTION WIDTH 11.4 % (11.5-14.5); WHITE BLOOD COUNT 9.2 10^3/uL (4.0-10.0)
[2017-09-13 16:46] LABS: CHOLESTEROL LEVEL 164 MG/DL (<200); TRIGLYCERIDES LEVEL 401 MG/DL (<150)
== END ==
LOC: M SFHCCLAY 11:45
PROVIDERS: ATTEND Nurse Practitioner Family
DX: K21.9 Gastro-esophageal reflux disease without esophagitis (principal); E11.69 Type 2 diabetes mellitus with other specified complication; E78.5 Hyperlipidemia, unspecified; E55.9 Vitamin D deficiency, unspecified

== ENCOUNTER 2017-09-17 20:04 | Emergency (ER) | payer OTHER ==
[~2017-09-17] VITALS: Ht 170.2 cm; Wt 84.0 kg
[~2017-09-17 20:04] MED LIST changes: -DOK100TA; -LISI40TAB; -METF500T13; -TOUJ1.2I; -TRAM50TA2
[2017-09-17] MEDS ORDERED: METF500T13 PO (20:20)
[2017-09-17] MEDS ORDERED: TRAM50TA2 (20:20)
[2017-09-17] MEDS ORDERED: TOUJ1.2I SQ (20:20)
[2017-09-17] MEDS ORDERED: DOK100TA PO (20:20)
[2017-09-17] MEDS ORDERED: LISI40TAB (20:20)
[2017-09-17] MEDS ORDERED: NS 1,000 ML IV ONE (21:45)
[2017-09-17] MEDS ORDERED: LEVEMIR (INSULIN DETEMIR) 1 UNITS/0.01ML SC ONE (22:00)
[2017-09-17 22:20] LABS: BASO # 0.1 10^3/uL (0.0-0.2); BASO % 0.7 % (0.0-1.0); EOS # 0.3 10^3/uL (0.0-0.50); EOS % 2.8 % (0.0-3.0); IMMATURE GRANULOCYTE % 0.1 % (0-0); LYMPH # 4.4 10^3/uL (1.5-4.5); LYMPH % 48.9 % (24.0-44.0); MEAN CORPUSCULAR HGB CONC 36.4 g/dl (32.0-36.5); MEAN CORPUSCULAR VOLUME 79.6 fl (80.0-96.0); MONO # 0.6 10^3/uL (0.0-0.8); MONO % 6.6 % (0.0-5.0); NEUTROPHILS # 3.7 10^3/uL (1.8-7.7); NEUTROPHILS % 40.9 % (36.0-66.0); PLATELET COUNT, AUTOMATED 217 10^3/uL (150-450); RED CELL DISTRIBUTION WIDTH 11.7 % (11.5-14.5)
[2017-09-17 22:58] LABS: ALBUMIN 3.3 GM/DL (3.2-5.2); ALBUMIN/GLOBULIN RATIO 0.85 (1.00-1.93); ALKALINE PHOSPHATASE 85 U/L (45-117); ALT/SGPT 26 U/L (12-78); ANION GAP 8 MEQ/L (8-16); AST/SGOT 21 U/L (7-37); BILIRUBIN,DIRECT < 0.1 MG/DL (0.0-0.2); BILIRUBIN,TOTAL 0.4 MG/DL (0.2-1.0); BLOOD UREA NITROGEN 11 MG/DL (7-18); CALCIUM LEVEL 8.6 MG/DL (8.5-10.1); CARBON DIOXIDE LEVEL 27 MEQ/L (21-32); CHLORIDE LEVEL 101 MEQ/L (98-107); CREATININE FOR GFR 1.01 MG/DL (0.70-1.30); GLOMERULAR FILTRATION RATE > 60.0 (>56); POTASSIUM SERUM 4.4 MEQ/L (3.5-5.1); SODIUM LEVEL 136 MEQ/L (136-145); TOTAL PROTEIN 7.2 GM/DL (6.4-8.2)
[2017-09-17 23:06] LABS: GLUCOSE, FASTING 433 MG/DL (70-105)
[2017-09-17] MEDS ORDERED: HumaLOG INSULIN (NovoLOG) PER UNIT SC STA (23:08)
[2017-09-18 01:18] VITALS: BP 144/82
--- NOTE | 2017-09-18 08:55 | REP ---
Clinical: Chest . Comparison: 06/07/1917 . Technique: PA and lateral. Findings: The mediastinum and cardiac silhouette are normal. The lung burger are clear and without acute consolidation, effusion, or pneumothorax. The skeletal structures are intact and normal. Impression: 1. No acute cardiopulmonary process. Signed by Tariq Mosqueda MD 09/18/2017 08:46 A
--- NOTE | 2017-09-18 14:16 | ECGEPIP ---
Stationary ECG Study [facility] - ED Test Date: 2017-09-17 Pat Name: CASEY GLASS Department: Room: - Gender: M Endoscopy Tech: jose alfredoem : 1965 Requested By: RAMONA Neal Order Number: [id number] Reading MD: Jewels Galaviz Measurements Intervals [place] Rate: 107 P: 52 TX: 154 QRS: -4 QRSD: 102 T: 76 QT: 329 QTc: 441 Interpretive Statements SINUS TACHYCARDIA POSSIBLE LEFT ATRIAL ENLARGEMENT NONSPECIFIC T-WAVE ABNORMALITY ABNORMAL RHYTHM ECG INCREASED RATE 02/20/17 Electronically Signed On 09-18-2017 14:15:43 EST by Jewels Galaviz
[2017-09-19] MEDS ORDERED: VITA100067 PO (00:33)
[2017-09-19] MEDS ORDERED: VENTAER IN (00:33)
[2017-09-19] MEDS ORDERED: GABA-283 PO (00:33)
[2017-09-19] MEDS ORDERED: DOCU100C16 PO (01:42)
[2017-09-19] MEDS ORDERED: TRAM50TA2 PO (01:42)
[2017-09-19] MEDS ORDERED: FENO160T10 PO (01:42)
[2017-09-19] MEDS ORDERED: NORT50CA PO (01:42)
[2017-09-19] MEDS ORDERED: METF500T13 PO (01:42)
[2017-09-19] MEDS ORDERED: TOUJ1.2I SC (01:42)
[2017-09-19] MEDS ORDERED: OMEP40CA2 PO (01:42)
[2017-09-19] MEDS ORDERED: VITA1CAP40 PO (01:42)
[2017-09-19] MEDS ORDERED: VENTAER INH (01:42)
[2017-09-19] MEDS ORDERED: ASPI81TAEC PO (01:42)
[2017-09-19] MEDS ORDERED: LISI40TAB PO (01:42)
[2017-09-19] MEDS ORDERED: CHOL4POW2 PO (01:42)
[2017-09-19] MEDS ORDERED: GABA800T PO (01:42)
[2017-09-19] MEDS ORDERED: ATOR40TA75 PO (01:42)
== END 2017-09-18 01:21 | disposition home or self-care (01) ==
LOC: M ED 20:04 → EDBD 20:04 → M ED 09-18 01:21
DX: E11.65 Type 2 diabetes mellitus with hyperglycemia (principal); K44.9 Diaphragmatic hernia without obstruction or gangrene; Z79.82 Long term (current) use of aspirin; Z79.4 Long term (current) use of insulin; Z79.84 Long term (current) use of oral hypoglycemic drugs; Z79.899 Other long term (current) drug therapy; Z91.018 Allergy to other foods; Z91.048 Other nonmedicinal substance allergy status; Z91.010 Allergy to peanuts; Z87.448 Personal history of other diseases of urinary system

== ENCOUNTER 2017-09-18 23:37 | Inpatient (IN) | payer OTHER ==
[~2017-09-18] VITALS: Ht 170.2 cm; Wt 78.8 kg
[~2017-09-18 23:37] MED LIST changes: +DOK100TA PO; +LISI40TAB; +METF500T13 PO; +TOUJ1.2I SQ; +TRAM50TA2
[2017-09-19] MEDS ORDERED: VENTAER IN (00:33)
[2017-09-19] MEDS ORDERED: VITA100067 PO (00:33)
[2017-09-19] MEDS ORDERED: GABA-283 PO (00:33)
[2017-09-19] MEDS ORDERED: NS 1,000 ML IV ONE (00:45)
[2017-09-19] MEDS ORDERED: HumuLIN R (REGULAR) INSULIN (NovoLIN R) **100U/ML** PER UNIT IV ONE (00:45)
[2017-09-19] MEDS ORDERED: METOCLOPRAMIDE INJ 10MG/2ML VIAL (J2765) IV ONE (00:45)
[2017-09-19 00:47] LABS: ALBUMIN/GLOBULIN RATIO 0.68 (1.00-1.93); ALKALINE PHOSPHATASE 55 U/L (45-117); ALT/SGPT 22 U/L (12-78); AMYLASE 104 U/L (25-115); ANION GAP 3 MEQ/L (8-16); AST/SGOT 11 U/L (7-37); BILIRUBIN,DIRECT 0.1 MG/DL (0.0-0.2); BILIRUBIN,TOTAL 0.5 MG/DL (0.2-1.0); BLOOD UREA NITROGEN 13 MG/DL (7-18); CALCIUM LEVEL 8.4 MG/DL (8.5-10.1); CARBON DIOXIDE LEVEL 30 MEQ/L (21-32); CHLORIDE LEVEL 102 MEQ/L (98-107); CREATININE FOR GFR 0.96 MG/DL (0.70-1.30); GLOMERULAR FILTRATION RATE > 60.0 (>56); GLUCOSE, FASTING 368 MG/DL (70-105); POTASSIUM SERUM 3.8 MEQ/L (3.5-5.1); SODIUM LEVEL 135 MEQ/L (136-145); TOTAL PROTEIN 7.4 GM/DL (6.4-8.2)
[2017-09-19 00:55] LABS: BASO % 0.4 % (0.0-1.0); EOS # 0.3 10^3/uL (0.0-0.50); EOS % 2.7 % (0.0-3.0); IMMATURE GRANULOCYTE % 0.5 % (0-0); LYMPH # 2.1 10^3/uL (1.5-4.5); LYMPH % 20.8 % (24.0-44.0); MEAN CORPUSCULAR HEMOGLOBIN 28.3 pg (27.0-33.0); MEAN CORPUSCULAR HGB CONC 35.6 g/dl (32.0-36.5); MEAN CORPUSCULAR VOLUME 79.5 fl (80.0-96.0); MONO # 0.8 10^3/uL (0.0-0.8); MONO % 7.6 % (0.0-5.0); NEUTROPHILS # 6.9 10^3/uL (1.8-7.7); PLATELET COUNT, AUTOMATED 195 10^3/uL (150-450); RED CELL DISTRIBUTION WIDTH 11.5 % (11.5-14.5); WHITE BLOOD COUNT 10.1 10^3/uL (4.0-10.0)
[2017-09-19] MEDS ORDERED: MORPHINE 4 MG/ML 1ML SYRINGE IV ONE (01:00)
[2017-09-19] MEDS ORDERED: ISOVUE-370 76% 100ML VIAL (Q9967) As Ordered ONE (01:06)
[2017-09-19 01:18] LABS: CHOLESTEROL LEVEL 126 MG/DL (<200); TRIGLYCERIDES LEVEL 316 MG/DL (<150)
[2017-09-19] MEDS ORDERED: VITA1CAP40 PO (01:42)
[2017-09-19] MEDS ORDERED: GABA800T PO (01:42)
[2017-09-19] MEDS ORDERED: CHOL4POW2 PO (01:42)
[2017-09-19] MEDS ORDERED: NORT50CA PO (01:42)
[2017-09-19] MEDS ORDERED: DOCU100C16 PO (01:42)
[2017-09-19] MEDS ORDERED: LISI40TAB PO (01:42)
[2017-09-19] MEDS ORDERED: VENTAER INH (01:42)
[2017-09-19] MEDS ORDERED: OMEP40CA2 PO (01:42)
[2017-09-19] MEDS ORDERED: TOUJ1.2I SC (01:42)
[2017-09-19] MEDS ORDERED: ATOR40TA75 PO (01:42)
[2017-09-19] MEDS ORDERED: TRAM50TA2 PO (01:42)
[2017-09-19] MEDS ORDERED: ASPI81TAEC PO (01:42)
[2017-09-19] MEDS ORDERED: FENO160T10 PO (01:42)
[2017-09-19] MEDS ORDERED: METF500T13 PO (01:42)
--- NOTE | 2017-09-19 02:20 | REPUSA ---
CLINICAL HISTORY: Abdominal pain. TECHNIQUE: Multiple axial, sagittal and coronal CT images were obtained through the abdomen and pelvi s after administration of intravenous contrast material. COMMENTS: Comparison to prior exam performed on 03/18/2017. Moderate hepatomegaly with fatty infiltration. Prior cholecystectomy. Fluid-filled stomach. Fluid filled small bowels. Minimal peripancreatic fat thickening. Significantly distended bladder. Moderate amount of fecal residue in the large bowel. The liver is of uniform attenuation without mass or defect. There is no intra or extrahepatic biliary ductal dilatation. The spleen is normal. There is no evidence of adrenal mass. Both kidneys demonstrate prompt and equal nephrograms. The kidneys are normal in size, shape and conf iguration. There is no evidence of renal or ureteral mass. No renal or ureteral calculi are identifie d. There is no hydroureter or hydronephrosis. No evidence for appendicitis. No evidence for small or large bowel obstruction. There is no evidence of abdominal ascites or lymphadenopathy. There is no evidence of intrinsic or extrinsic bladder mass. There is no pelvic ascites or lymphadeno angus. Images of the lung bases show no evidence of pleural or parenchymal mass. There are no pleural effusi ons. Bilateral basilar subsegmental atelectatic airspace disease in the lung bases. The bony structures are free of lytic or blastic lesions. Multilevel degenerative changes are seen in volving the thoracolumbar spine. Scattered calcifications are seen involving the aorta and major bran ches compatible with atherosclerosis. IMPRESSION: Comparison to prior exam performed on 03/18/2017. Moderate hepatomegaly with fatty infiltration. Prior cholecystectomy. Fluid-filled stomach. Fluid filled small bowels. Minimal peripancreatic fat thickening. Possibly minimal acute pancreatitis. Significantly distended bladder. Moderate amount of fecal residue in the large bowel. Thank you for your kind referral of this patient.
[2017-09-19] MEDS ORDERED: MORPHINE 2 MG/ML 1ML SYRINGE IV PRN (02:45)
[2017-09-19] MEDS ORDERED: METOCLOPRAMIDE INJ 10MG/2ML VIAL (J2765) IV PRN (02:45)
[2017-09-19] MEDS ORDERED: DEXTROSE 50% 50 ML SYRINGE IV PRN (03:15)
[2017-09-19] MEDS ORDERED: GLUCAGON FOR INJ 1 MG VIAL (J1610) SC PRN (03:15)
[2017-09-19] MEDS ORDERED: GLUCOSE 4 GM CHEW TABLET PO PRN (03:15)
[2017-09-19] MEDS: IPRATROPIUM 0.5MG/ALBUTEROL 2.5MG INH SOL UD 3ML (DUONEB)(J7620) NEB SCH ×5 (04:00→19:30)
[2017-09-19 04:43] VITALS: BP 132/74
[2017-09-19] MEDS: NS 1,000 ML IV SCH ×4 (04:58→22:57)
[2017-09-19 06:00] VITALS: BP 119/77
--- NOTE | 2017-09-19 06:13 | HPE ---
DATE OF ADMISSION: 09/19/2017 PRIMARY CARE PHYSICIAN: STEFANY Modi. Patient comes in with chief complaint of abdominal pain over the last 2-3 days. Patient states that he has not been vomiting or having nausea, though he claimed otherwise to other medical staff. However, he does say that he has had continuing diarrhea. While in ED, patient has CT scan done which shows findings consistent with pancreatitis as does the lab. Patient has a history of previous pancreatitis on multiple different occasions. Patient denies alcohol use and is unsure of what his pancreatitis is related to as per the patient. Patient's other medical history include recent [place] this year. Patient also with history of cerebrovascular accident, coronary artery disease, gastroparesis, fatty liver infiltration, diabetes and syncope. Patient on multiple medications including aspirin, atorvastatin, fenofibric acid, metformin, lisinopril, nortriptyline, omeprazole. Patient's medical reconciliation may contain some inaccuracy as this patient on multiple charts showing different medication list and giving different history to different people as per his medications. For example, he noted to me that he does not really take any medications. Patient says he is nonsmoker. Does not drink alcohol or use drugs. PHYSICAL EXAMINATION: Patient is disheveled, unclean in appearance. I have found bed bugs crawling on the patient. Patient will be in contact isolation. Patient is awake, alert and oriented times three, however somewhat lethargic secondary to patient's analgesic treatment. Patient able with grossly normal hearing, able to see. Head is normocephalic, atraumatic. Again hair is disheveled with presence of infestation. Clothing are not clean. Patient able to move all four extremities. Good inspiratory and expiratory effort. Patient S1, S2. Abdomen: Extremely tender to palpation, guarding. Unable to do full exam. Cranial nerve exam was not done to completion, patient unable to comply with the requests. REVIEW OF SYSTEMS: Patient without any other complaints acutely other than was noted in the history of present illness. FAMILY HISTORY: Patient denies any significant family history. PAST SURGICAL HISTORY: Cholecystectomy. Open reduction internal fixation (ORIF) of the right lower extremity in childhood. Please note these history parts were obtained from older notes as patient is not giving good history again secondary to significant analgesic treatment. Patient with again history of hypertension, diabetes mellitus, hyperlipidemia, carpal tunnel syndrome, history of pancreatitis, history of cerebrovascular accident (CVA), gastroparesis, history of alcohol abuse in past notes, although he notes that he does not drink alcohol, but again an older note says he has been sober over the last 20 years. LABORATORY EXAM: WBC 10.1, hemoglobin and hematocrit 12.7/35.7. Platelets 195. Chemistry: Initial fasting glucose is 433 now improved to 368 after insulin administration. Sodium 135 which is low although on correction it is within normal limits. Anion gap is low at 3. Lipase extremely elevated at 1203 again consistent with patient's findings. Triglycerides also elevated at 316. IMAGING: Abnormal CT: Moderate hepatomegaly without infiltration. Prior cholecystectomy. Fluid filled stomach. Small bowel. Pancreatic fat thickening. Possible minimal acute pancreatitis. Significantly distended bladder. Moderate amount of fecal residue in large bowel. ASSESSMENT AND PLAN: Patient is a 52-year-old male with significant medical history as noted above. Patient comes in with apparent pancreatitis. Patient to be n.p.o. IV fluids hydration. Advance diet as tolerated. Patient on multiple home analgesic medications though difficult to ascertain which ones he is and is not taking. Will limit analgesic treatments to one or two medications at this time. Will start with morphine and/or Dilaudid for longer acting treatment. On medication review, patient says he is only taking metformin. Will put patient on insulin sliding scale at this time. For patient's hypertension, patient unable to take oral medications at this time secondary to apparent nausea and vomiting, however, patient sometimes denies nausea and vomiting. Nevertheless, will treat patient IV as needed for now. Lisinopril which is patient's medication has been shown to potentially cause pancreatitis. Hyperlipidemia, cerebrovascular accident and coronary artery disease. At this time, will hold patient's statins which again can be a cause of pancreatitis. For patient's airway disease, DuoNebs. Given significance of patient's symptoms and his pain and lack of ability to eat at this time, I expect admission to be greater than two midnights. I first saw patient 09/19/2017.
[2017-09-19] MEDS: HumaLOG INSULIN (NovoLOG) PER UNIT SC SCH ×3 (07:30→16:56)
[2017-09-19] MEDS ORDERED: LEVEMIR (INSULIN DETEMIR) 1 UNITS/0.01ML SC SCH (09:00)
--- NOTE | 2017-09-19 10:02 | IPNPDOC ---
Subjective Date Seen The patient was seen on 09/19/17. Subjective Chief Complaint/HPI The patient is a 52-year-old male admitted with a reason for visit of Pancreatitis. Events since last encounter Pt has been begging his nurse to eat this morning, although he still co abd pain. He denies nausea or vomiting this morning. He is concerned about being here tomorrow as he needs to work tomorrow evening. He notes that he doesn't really take his medications compliantly, nor does he check his FSBS. General: Denies: Fatigue Constitutional: Denies: Chills, Fever ENT: Denies: Head Aches Pulmonary: Denies: Dyspnea, Cough Cardiovascular: Denies: Chest Pain, Palpitations Gastrointestinal: Denies: Nausea, Vomiting, Diarrhea Neurological: Denies: Weakness Psych: Reports: Mood Normal Objective Physical Examination General Exam: Positive: Alert, No Acute Distress ENT Exam: Positive: Mucous membr. moist/pink Chest Exam: Positive: Clear to auscultation Heart Exam: Positive: Rate Normal, Normal S1, Normal S2 Abdomen Exam: Positive: Normal bowel sounds, Soft, Negative: Tenderness Extremity Exam: Positive: Edema Psych Exam: Positive: Mood NL Assessment /Plan Problems (1) Acute pancreatitis Status: Acute Response to Treatment: Stable Discussed With: Nurse, Patient Problem Specific Plan: Monitor Clinically, Repeat Labs Problem Text: Pt NPO, on IVF, US of RUQ pending this morning, will repeat Lipase today as well, last done overnight at time of admission. Labs ordered for tomorrow morning as well. He has a h/o noncompliance with his medications, which could be contributing to his recurrent episodes of pancreatitis ( uncontrolled DM2) (2) Noncompliance w/medication treatment due to intermit use ofmedication Status: Chronic Response to Treatment: Stable (3) HTN (hypertension) Status: Chronic Response to Treatment: Stable Problem Specific Plan: Monitor Clinically Problem Text: Monitor while meds held d/t NPO. (4) Uncontrolled type 2 diabetes mellitus Status: Chronic Response to Treatment: Stable Problem Specific Plan: Monitor Clinically Problem Text: Pt non compliant with diet and insulin use. Glu on admission 368 , he has orders for levemir, A1c pending. Plan/VTE VTE Prophylaxis Ordered?: Yes VS, I&O, 24H, Fishbone Vital Signs/I&O Vital Signs Date Time Temp Pulse Resp B/P (MAP) Pulse Ox O2 Delivery O2 Flow Rate FiO2 09/19/17 06:00 98.5 64 17 119/77 (91) 93 Room Air I&O- Last 24 Hours up to 6 AM 09/20/17 05:59 Intake Total 0 ml Output Total 0 ml Balance 0 ml Laboratory Data 24H LABS Laboratory Tests 2 09/19/17 00:00: Immature Granulocyte % (Auto) 0.5H, White Blood Count 10.1H, Red Blood Count 4.49, Hemoglobin 12.7L, Hematocrit 35.7L, Mean Corpuscular Volume 79.5L, Mean Corpuscular Hemoglobin 28.3, Mean Corpuscular Hemoglobin Concent 35.6, Red Cell Distribution Width 11.5, Platelet Count 195, Neutrophils (%) (Auto) 68.0H, Lymphocytes (%) (Auto) 20.8L, Monocytes (%) (Auto) 7.6H, Eosinophils (%) (Auto) 2.7, Basophils (%) (Auto) 0.4, Neutrophils # (Auto) 6.9, Lymphocytes # (Auto) 2.1, Monocytes # (Auto) 0.8, Eosinophils # (Auto) 0.3, Basophils # (Auto) 0.0, Immature Granulocyte # (Auto) 0.1H, Nucleated Red Blood Cells % (auto) 0.0, Anion Gap 3L, Glomerular Filtration Rate > 60.0, Lactic Acid Level 1.6, Calcium Level 8.4L, Aspartate Amino Transf (AST/SGOT) 11, Alanine Aminotransferase (ALT/ SGPT) 22, Alkaline Phosphatase 55, Total Bilirubin 0.5, Direct Bilirubin 0.1, Total Protein 7.4, Albumin 3.0L, Albumin/Globulin Ratio 0.68L, Triglycerides Level 316H, Total Cholesterol 126, LDL Cholesterol 29.8, Non-HDL Cholesterol ( LDL + VLDL) 93, Total HDL Cholesterol 33L, Cholesterol/HDL Ratio 3.818, Amylase Level 104, Lipase 1203H 09/19/17 00:33: Bedside Glucose (Misc Panel) 379H 09/19/17 01:42: Bedside Glucose (Misc Panel) 309H 09/19/17 05:10: Total Creatine Kinase 158, Creatine Kinase MB 1.9, Creatine Kinase MB Relative Index 1.20, Troponin I < 0.02 09/19/17 07:10: Bedside Glucose (Misc Panel) 261H 09/19/17 08:10: CBC/BMP Laboratory Tests 09/19/17 00:00 Red Blood Count 4.49, Mean Corpuscular Volume 79.5 L, Mean Corpuscular Hemoglobin 28.3, Mean Corpuscular Hemoglobin Concent 35.6, Red Cell Distribution Width 11.5, Neutrophils (%) (Auto) 68.0 H, Lymphocytes (%) (Auto) 20.8 L, Monocytes (%) (Auto) 7.6 H, Eosinophils (%) (Auto) 2.7, Basophils (%) ( Auto) 0.4, Neutrophils # (Auto) 6.9, Lymphocytes # (Auto) 2.1, Monocytes # (Auto ) 0.8, Eosinophils # (Auto) 0.3, Basophils # (Auto) 0.0 CARLO SILVERMAN PA-C Sep 19, 2017 10:02
--- NOTE | 2017-09-19 13:38 | REP ---
Clinical: Pancreatitis. Technique: Reyes scale ultrasound using curved array transducer. Findings: The liver demonstrates increased echogenicity consistent with fatty infiltration without focal hepatic lesion. The pancreas is incompletely evaluated due to interposed bowel gas but visualized portions appear normal. The patient is status post cholecystectomy. No biliary ductal dilatation is appreciated, and the common bile duct measures 4.1 mm diameter. The right kidney is normal in reniform shape without hydronephrosis and measures 12.4 x 5.7 x 5.4 cm. No ascites. Visualized portions of the abdominal aorta normal. Impression: Hepatic steatosis without focal hepatic lesion. Visualized portions of the pancreas are normal. No biliary ductal dilatation noted. No ascites identified. Signed by Tariq Mosqueda MD 09/19/2017 01:29 P
[2017-09-19 14:00] VITALS: BP 145/90
[2017-09-19 20:40] VITALS: BP 146/93
[2017-09-19] MEDS ORDERED: HumaLOG INSULIN (NovoLOG) PER UNIT SC SCH (21:00)
[2017-09-19] MEDS ORDERED: ASPIRIN 81 MG ENTERIC TAB PO SCH (21:00)
[2017-09-20] MEDS: NS 1,000 ML IV SCH (05:55)
[2017-09-20 06:10] VITALS: BP 138/79
[2017-09-20 06:10] LABS: MEAN CORPUSCULAR HGB CONC 35.2 g/dl (32.0-36.5); MEAN CORPUSCULAR VOLUME 79.7 fl (80.0-96.0); PLATELET COUNT, AUTOMATED 170 10^3/uL (150-450); RED CELL DISTRIBUTION WIDTH 11.4 % (11.5-14.5); WHITE BLOOD COUNT 5.2 10^3/uL (4.0-10.0)
[2017-09-20 06:18] LABS: ALBUMIN 2.3 GM/DL (3.2-5.2); ALBUMIN/GLOBULIN RATIO 0.64 (1.00-1.93); ALKALINE PHOSPHATASE 40 U/L (45-117); ALT/SGPT 31 U/L (12-78); ANION GAP 8 MEQ/L (8-16); AST/SGOT 25 U/L (7-37); BILIRUBIN,TOTAL 0.3 MG/DL (0.2-1.0); BLOOD UREA NITROGEN 8 MG/DL (7-18); CARBON DIOXIDE LEVEL 24 MEQ/L (21-32); CHLORIDE LEVEL 109 MEQ/L (98-107); CREATININE FOR GFR 0.74 MG/DL (0.70-1.30); GLOMERULAR FILTRATION RATE > 60.0 (>56); GLUCOSE, FASTING 221 MG/DL (70-105); POTASSIUM SERUM 3.7 MEQ/L (3.5-5.1); SODIUM LEVEL 141 MEQ/L (136-145); TOTAL PROTEIN 5.9 GM/DL (6.4-8.2)
[2017-09-20] MEDS: IPRATROPIUM 0.5MG/ALBUTEROL 2.5MG INH SOL UD 3ML (DUONEB)(J7620) NEB SCH ×3 (07:20→14:53)
[2017-09-20] MEDS ORDERED: LEVEMIR (INSULIN DETEMIR) 1 UNITS/0.01ML SC SCH (09:00)
--- NOTE | 2017-09-20 09:26 | IPNPDOC ---
Subjective Date Seen The patient was seen on 09/20/17. Subjective Chief Complaint/HPI The patient is a 52-year-old male admitted with a reason for visit of Pancreatitis. Events since last encounter Pt this morning states that he is feeling much better. He states that his abd pain is better, he has had two BMs. He denies N/V. He wants to go home. General: Denies: Fatigue Constitutional: Denies: Chills, Fever Pulmonary: Denies: Dyspnea, Cough Cardiovascular: Denies: Chest Pain, Palpitations Gastrointestinal: Denies: Nausea, Vomiting Neurological: Denies: Weakness Psych: Reports: Mood Normal Objective Physical Examination General Exam: Positive: Alert, No Acute Distress ENT Exam: Positive: Mucous membr. moist/pink Chest Exam: Positive: Clear to auscultation Heart Exam: Positive: Rate Normal, Normal S1, Normal S2 Abdomen Exam: Positive: Normal bowel sounds, Soft, Negative: Tenderness Extremity Exam: Negative: Edema Psych Exam: Positive: Mood NL Assessment /Plan Problems (1) Acute pancreatitis Status: Acute Response to Treatment: Stable, Improving Discussed With: Nurse, Patient Problem Specific Plan: Monitor Clinically, Repeat Labs Problem Text: 09/20 - Tolerating clears, will adv diet as tolerated today, Lipase has normalized, decreased IVF rate from 150 to 75, d/c if tolerates diet. 09/19 Pt NPO, on IVF, US of RUQ pending this morning, will repeat Lipase today as well, last done overnight at time of admission. Labs ordered for tomorrow morning as well. He has a h/o noncompliance with his medications, which could be contributing to his recurrent episodes of pancreatitis (uncontrolled DM2) (2) Noncompliance w/medication treatment due to intermit use ofmedication Status: Chronic Response to Treatment: Stable (3) HTN (hypertension) Status: Chronic Response to Treatment: Stable Problem Specific Plan: Monitor Clinically Problem Text: Monitor while meds held d/t NPO. (4) Uncontrolled type 2 diabetes mellitus Status: Chronic Response to Treatment: Stable Problem Specific Plan: Monitor Clinically Problem Text: 09/20 - Counseled on importance of compliance with medication and diet, he needs close f/u with his PCP. Will increase Levemir to 30 units today, his A1c is 13%. FSBS since admission consistently in the high 200s to 300s. 09/19 Pt non compliant with diet and insulin use. Glu on admission 368, he has orders for levemir, A1c pending. Plan/VTE VTE Prophylaxis Ordered?: Yes VS, I&O, 24H, Davidbone Vital Signs/I&O Vital Signs Date Time Temp Pulse Resp B/P (MAP) Pulse Ox O2 Delivery O2 Flow Rate FiO2 09/20/17 06:10 97.8 83 16 138/79 (98) 96 Room Air I&O- Last 24 Hours up to 6 AM 09/21/17 06:00 Intake Total 1240 ml Balance 1240 ml Laboratory Data 24H LABS Laboratory Tests 2 09/19/17 12:47: Lipase 237 09/19/17 16:23: Bedside Glucose (Misc Panel) 287H 09/19/17 20:44: Bedside Glucose (Misc Panel) 271H 09/20/17 05:30: Lipase 202, Nucleated Red Blood Cells % (auto) 0.0, Anion Gap 8, Glomerular Filtration Rate > 60.0, Blood Urea Nitrogen 8, Creatinine 0.74, Sodium Level 141 , Potassium Level 3.7, Chloride Level 109H, Carbon Dioxide Level 24, Calcium Level 8.0L, Aspartate Amino Transf (AST/SGOT) 25, Alanine Aminotransferase (ALT/ SGPT) 31, Alkaline Phosphatase 40L, Total Bilirubin 0.3, Total Protein 5.9#L, Albumin 2.3#L, Albumin/Globulin Ratio 0.64L CBC/BMP Laboratory Tests 09/20/17 05:30 Red Blood Count 4.14 L, Mean Corpuscular Volume 79.7 L, Mean Corpuscular Hemoglobin 28.0, Mean Corpuscular Hemoglobin Concent 35.2, Red Cell Distribution Width 11.4 L, Calcium Level 8.0 L, Aspartate Amino Transf (AST/SGOT ) 25, Alanine Aminotransferase (ALT/SGPT) 31, Alkaline Phosphatase 40 L, Total Bilirubin 0.3, Total Protein 5.9 #L, Albumin 2.3 #L CARLO SILVERMAN PA-C Sep 20, 2017 09:26
[2017-09-20] MEDS: HumaLOG INSULIN (NovoLOG) PER UNIT SC SCH ×2 (09:58→12:54)
--- NOTE | 2017-09-20 12:53 | ECGEPIP ---
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
--- NOTE | 2017-09-20 13:01 | ECGEPIP ---
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
[2017-09-20 14:00] VITALS: BP 158/90
--- NOTE | 2017-09-20 15:09 | DS.PDOC ---
Discharge Summary General Date of Admission Sep 19, 2017 at 02:38 Date of Discharge 09/20/17 Discharge Summary Consults: None Discharge diagnosis: Acute pancreatitis Secondary diagnosis: Hypertension, uncontrolled type 2 diabetes mellitus Hospital course: Patient was admitted on 09/19/17 after having abdominal pain for 2-3 days. Patient was evaluated in emergency department and had elevated lipase, CT which was consistent with pancreatitis. He was admitted, made nothing by mouth and given IV fluids. Diet was advanced to clear liquids in the afternoon on . Advanced further to consistent carbohydrate on 09/20/17. Progress note on date of discharge: Subjective: Patient seen in room. He does not have any acute concerns today. He just finished up with having lunch, he tolerated lunch without difficulties. He states that he is feeling good and ready to go home. He denies any fevers, chills, sweats, chest pain/pressure, shortness of breath, difficulty breathing, abdominal pain. Objective: Vitals: Temperature 97.8, pulse 83, respiratory rate 16, blood pressure 138/79, pulse ox 96% on room air Gen.: Patient awake, alert and oriented, verbal and able to answer questions appropriately. Patient does not appear to be in any acute distress Heart: Regular rate and rhythm, normal S1-S2. No murmurs, rubs, clicks or gallops Lungs: Clear to auscultation bilaterally. No wheezes, rales or rhonchi Abdomen: Active bowel sounds, soft, nontender, no masses to palpation Labs: CBC: White blood cells 5.2, hemoglobin and hematocrit 11.6/33.0, platelets 170 Chemistry: Sodium 141, potassium 3.7, chloride 109, carbon dioxide 24, BUN 8, creatinine 0.74, glucose 221, calcium 8.0 Liver profile: AST 25, ALT 31, alkaline phosphatase 40, total protein 5.9, albumin 2.3 Lipase 202 Assessment: Patient is a 52-year-old male admitted for pancreatitis. He is currently tolerating consistent carbohydrate diet and is ready to be discharged. Disposition: Discharge patient to home Follow-up: With primary care provider in 5 days Activity: As tolerated Diet: Consistent carbohydrate, low-fat Medications on discharge: Albuterol sulfate nebulizer every 4 hours as needed for shortness of breath Aspirin 81 mg by mouth daily at bedtime Atorvastatin 40 mg by mouth daily at bedtime Cholestyramine 4 g by mouth twice a day Docusate 100 mg by mouth twice a day Drisdol 50,000 units by mouth every Saturday morning Fenofibrate 160 mg by mouth daily at bedtime Gabapentin 800 mg by mouth 3 times a day Lisinopril 40 mg by mouth daily Metformin 500 mg by mouth with meals Nortriptyline 50 mill grams by mouth daily at bedtime Omeprazole 40 mg by mouth daily Toujeo 70 units subcutaneously at bedtime Tramadol 50 mg by mouth every 6 hours as needed for pain Will require out-patient follow up: Hemoglobin A1c of 13 Discharge Medications Scheduled (Sharon Chau) 300 Unit/Ml Inj, 70 UNIT SC QHS, (Reported) Aspirin (Aspirin EC) 81 Mg Tabec, 81 MG PO QHS, (Reported) Atorvastatin Calcium (Atorvastatin Calcium) 40 Mg Tab, 40 MG PO QHS, (Reported) Cholestyramine (Cholestyramine Light) 4 Gm Pow, 4 GM PO BID, (Reported) Docusate Sodium (Docusate Sodium) 100 Mg Cap, 100 MG PO BID, (Reported) Ergocalciferol (Vitamin D) 50,000 Unit Cap, 50,000 UNIT PO ASDIRECTED, (Reported ) TAKES ON SATURDAY MORNING Fenofibrate (Fenofibrate) 160 Mg Tab, 160 MG PO QHS, (Reported) Gabapentin (Gabapentin) 800 Mg Tab, 800 MG PO TID, (Reported) Lisinopril (Lisinopril) 40 Mg Tab, 40 MG PO DAILY, (Reported) Metformin Hydrochloride (Metformin HCl) 500 Mg Tab, 500 MG PO WM, (Reported) Nortriptyline HCl (Nortriptyline HCl) 50 Mg Cap, 50 MG PO QHS, (Reported) Omeprazole (Omeprazole) 40 Mg Cap, 40 MG PO DAILY, (Reported) Scheduled PRN Albuterol Sulfate (Ventolin Hfa) 108 Mcg/Act Aer, 216 MCG INH Q4H PRN for SHORTNESS OF BREATH, (Reported) Tramadol HCl (Tramadol HCl) 50 Mg Tab, 50 MG PO Q6H PRN for PAIN, (Reported) Allergies Coded Allergies: [place] Oil (Verified Allergy, Severe, THROAT CLOSES/SWELLING , 09/17/17) Olives (Verified Allergy, Severe, THROAT CLOSES/SWELLING , 09/17/17) Peanut (Verified Allergy, Severe, PEANUT OIL/BUTTER=THROAT CLOSES/DYSPNEA , 09/17/17) Grass (Verified Allergy, Unknown, 09/17/17) SEASONAL ALLERGIES (Verified Allergy, Unknown, 09/17/17) GME ATTESTATION GME ATTESTATION My faculty preceptor for this patient encounter was physically present during the encounter and was fully available. All aspects of the patient interview, examination, medical decision making process, and medical care plan development were reviewed and approved by the faculty preceptor. The faculty preceptor is aware and concurs with the plan as stated in the body of this note and will attest to such by his/her cosignature. LU INGRAM DO Sep 20, 2017 15:09
== END 2017-09-20 16:30 | disposition home or self-care (01) | DRG 282 ==
LOC: M ED 23:37 → EDBD 23:37 → M ED INP 09-19 02:38 → M MSPAV 09-19 04:39
PROVIDERS: ADMIT Internal Medicine; ATTEND Family Medicine
DX: K85.90 Acute pancreatitis without necrosis or infection, unspecified (principal); I10 Essential (primary) hypertension; I25.2 Old myocardial infarction; I25.10 Atherosclerotic heart disease of native coronary artery without angina pectoris; E11.65 Type 2 diabetes mellitus with hyperglycemia; E78.5 Hyperlipidemia, unspecified; E11.43 Type 2 diabetes mellitus with diabetic autonomic (poly)neuropathy; K76.0 Fatty (change of) liver, not elsewhere classified; Z79.82 Long term (current) use of aspirin; Z79.84 Long term (current) use of oral hypoglycemic drugs; Z86.73 Personal history of transient ischemic attack (TIA), and cerebral infarction without residual deficits; Z79.899 Other long term (current) drug therapy; Z91.14 Patient's other noncompliance with medication regimen

== ENCOUNTER 2017-11-30 16:32 | Observation (INO) | payer OTHER ==
[2017-11-30 16:59] LABS: BASO # 0.1 10^3/uL (0.0-0.2); BASO % 0.7 % (0.0-1.0); EOS # 0.2 10^3/uL (0.0-0.50); EOS % 1.9 % (0.0-3.0); HEMATOCRIT 37.1 % (42.0-52.0); HEMOGLOBIN 13.3 g/dl (14.0-18.0); IMMATURE GRANULOCYTE % 0.3 % (0-0); LYMPH # 3.9 10^3/uL (1.5-4.5); LYMPH % 44.2 % (24.0-44.0); MEAN CORPUSCULAR HEMOGLOBIN 28.6 pg (27.0-33.0); MEAN CORPUSCULAR HGB CONC 35.8 g/dl (32.0-36.5); MEAN CORPUSCULAR VOLUME 79.8 fl (80.0-96.0); MONO # 0.6 10^3/uL (0.0-0.8); MONO % 7.1 % (0.0-5.0); NEUTROPHILS # 4.1 10^3/uL (1.8-7.7); NEUTROPHILS % 45.8 % (36.0-66.0); PLATELET COUNT, AUTOMATED 220 10^3/uL (150-450); RED BLOOD COUNT 4.65 10^6/uL (4.30-6.10); RED CELL DISTRIBUTION WIDTH 11.3 % (11.5-14.5); WHITE BLOOD COUNT 8.9 10^3/uL (4.0-10.0)
[2017-11-30] MEDS: ASPIRIN 81 MG CHEW TABLET PO ×2 (17:05)
[2017-11-30] MEDS: NS 500 ML IV ×2 (17:05)
[2017-11-30 17:31] LABS: ALBUMIN 3.3 GM/DL (3.2-5.2); ALKALINE PHOSPHATASE 63 U/L (45-117); ALT/SGPT 22 U/L (12-78); ANION GAP 11 MEQ/L (8-16); AST/SGOT 13 U/L (7-37); BILIRUBIN,DIRECT < 0.1 MG/DL (0.0-0.2); BILIRUBIN,TOTAL 0.3 MG/DL (0.2-1.0); BLOOD UREA NITROGEN 20 MG/DL (7-18); CALCIUM LEVEL 8.9 MG/DL (8.5-10.1); CARBON DIOXIDE LEVEL 25 MEQ/L (21-32); CHLORIDE LEVEL 97 MEQ/L (98-107); CK-MB VALUE MASS 2.6 NG/ML (0.0-3.6); CPK CREATINE PHOSPHOKINASE 99 U/L (39-308); CREATININE FOR GFR 1.23 MG/DL (0.70-1.30); GLOMERULAR FILTRATION RATE > 60.0 (>56); LIPASE 1418 U/L (73-393); MB/CK RELATIVE INDEX 2.62 (< OR =4); NT-PRO BNP 5 PG/ML (<125); POTASSIUM SERUM 4.6 MEQ/L (3.5-5.1); SODIUM LEVEL 133 MEQ/L (136-145); TOTAL PROTEIN 7.4 GM/DL (6.4-8.2); TROPONIN I < 0.02 NG/ML (< 0.10)
[2017-11-30] MEDS: MORPHINE 4 MG/ML 1ML SYRINGE IV (17:36)
[2017-11-30] MEDS: MORPHINE 4 MG/ML 1ML VIAL (J2270) IV (17:36)
[2017-11-30 17:37] LABS: GLUCOSE, FASTING 538 MG/DL (70-100)
[2017-11-30] MEDS ORDERED: ISOVUE-370 76% 100ML VIAL (Q9967) As Ordered ×2 (17:53)
[2017-11-30] MEDS: HumuLIN R (REGULAR) INSULIN (NovoLIN R) **100U/ML** PER UNIT IV ×2 (18:18)
[2017-11-30 19:09] LABS: BEDSIDE GLUCOSE 381 MG/DL (70-105)
[2017-11-30] MEDS ORDERED: ACETAMINOPHEN TAB 650MG DOSE (2X325MG) PO ×2 (19:30)
[2017-11-30] MEDS ORDERED: MORPHINE 2 MG/ML 1ML SYRINGE (J2270) IV (19:30)
[2017-11-30] MEDS ORDERED: ONDANSETRON 4MG/2ML VIAL (J2405) IV ×2 (19:30)
[2017-11-30] MEDS ORDERED: MORPHINE 2 MG/ML 1ML SYRINGE IV (19:30)
[2017-11-30] MEDS ORDERED: PERCOCET 5MG/325MG TAB PO ×2 (19:30)
[2017-11-30] MEDS: NS 1,000 ML IV ×2 (19:59)
[2017-11-30] MEDS ORDERED: NITROGLYCERIN 0.4 MG SUBL TABLET SL ×2 (20:00)
[2017-11-30] MEDS ORDERED: DEXTROSE 50% 50 ML SYRINGE IV ×2 (20:00)
[2017-11-30] MEDS ORDERED: GLUCOSE 4 GM CHEW TABLET PO ×2 (20:00)
[2017-11-30] MEDS ORDERED: GLUCAGON FOR INJ 1 MG VIAL (J1610) SC ×2 (20:00)
[2017-11-30 20:49] LABS: CHOLESTEROL LEVEL 162 MG/DL (<200); HDL CHOLESTEROL 36 MG/DL (>40); LDL CHOLESTEROL 63.8 MG/DL (<100); NON-HDL-C 126 MG/DL; TRIGLYCERIDES LEVEL 311 MG/DL (<150)
[2017-11-30] MEDS ORDERED: LEVEMIR (INSULIN DETEMIR) 1 UNITS/0.01ML SC ×2 (21:00)
[2017-11-30] MEDS ORDERED: traMADol 50 MG TAB PO ×2 (21:45)
[2017-11-30] MEDS ORDERED: ALBUTEROL 90 MCG/ACT 8GM HFA INHALER INH ×2 (21:45)
[2017-11-30] MEDS: SUCRALFATE SUSP 1GM/10ML UD PO ×2 (22:01)
[2017-11-30] MEDS: OMEPRAZOLE 20 MG CAP PO ×2 (22:01)
[2017-11-30] MEDS: ENOXAPARIN 40 MG/0.4 ML SYRINGE (J1650) SC ×2 (22:02)
[2017-11-30] MEDS: HumaLOG INSULIN (NovoLOG) PER UNIT SC ×2 (22:02)
[2017-11-30 22:03] LABS: BEDSIDE GLUCOSE 329 MG/DL (70-105)
[2017-11-30] MEDS: PERCOCET 5MG/325MG TAB PO ×2 (22:03)
[2017-12-01 00:55] LABS: CK-MB VALUE MASS 2.2 NG/ML (0.0-3.6); CPK CREATINE PHOSPHOKINASE 84 U/L (39-308); MB/CK RELATIVE INDEX 2.61 (< OR =4); TROPONIN I < 0.02 NG/ML (< 0.10)
[2017-12-01] MEDS ORDERED: METAL LOCK LOOP XX ×2 (03:31)
[2017-12-01 06:20] LABS: HEMATOCRIT 35.1 % (42.0-52.0); HEMOGLOBIN 12.6 g/dl (14.0-18.0); MEAN CORPUSCULAR HEMOGLOBIN 28.8 pg (27.0-33.0); MEAN CORPUSCULAR HGB CONC 35.9 g/dl (32.0-36.5); MEAN CORPUSCULAR VOLUME 80.1 fl (80.0-96.0); PLATELET COUNT, AUTOMATED 198 10^3/uL (150-450); RED BLOOD COUNT 4.38 10^6/uL (4.30-6.10); RED CELL DISTRIBUTION WIDTH 11.4 % (11.5-14.5); WHITE BLOOD COUNT 8.1 10^3/uL (4.0-10.0)
[2017-12-01 06:22] LABS: ADD MANUAL DIFFER YES; DIFF SLIDE NUMBER 78; POSITIVE DIFF POS FLAG
[2017-12-01] MEDS: NS 1,000 ML IV ×2 (06:28)
[2017-12-01 06:51] LABS: ALBUMIN 2.9 GM/DL (3.2-5.2); ALBUMIN/GLOBULIN RATIO 0.73 (1.00-1.93); ALKALINE PHOSPHATASE 46 U/L (45-117); ALT/SGPT 22 U/L (12-78); AMYLASE 63 U/L (25-115); ANION GAP 7 MEQ/L (8-16); AST/SGOT 16 U/L (7-37); BILIRUBIN,TOTAL 0.3 MG/DL (0.2-1.0); BLOOD UREA NITROGEN 15 MG/DL (7-18); CALCIUM LEVEL 8.3 MG/DL (8.5-10.1); CARBON DIOXIDE LEVEL 26 MEQ/L (21-32); CHLORIDE LEVEL 104 MEQ/L (98-107); CPK CREATINE PHOSPHOKINASE 84 U/L (39-308); CREATININE FOR GFR 0.88 MG/DL (0.70-1.30); GLOMERULAR FILTRATION RATE > 60.0 (>56); GLUCOSE, FASTING 252 MG/DL (70-100); LIPASE 222 U/L (73-393); SODIUM LEVEL 137 MEQ/L (136-145); TOTAL PROTEIN 6.9 GM/DL (6.4-8.2); TROPONIN I < 0.02 NG/ML (< 0.10)
[2017-12-01 06:52] LABS: CK-MB VALUE MASS 2.2 NG/ML (0.0-3.6); MB/CK RELATIVE INDEX 2.61 (< OR =4)
[2017-12-01 06:59] LABS: ATYPICAL LYMPH 1 % (0-5); BASOPHILS 2 % (0-4); EOSINOPHILS 4 % (0-5); LYMPHOCYTES 56 % (16-52); MONOCYTES 4 % (0-8); NEUTROPHILS 33 % (35-75); PLATELET ESTIMATE NORMAL (NORMAL)
[2017-12-01 07:00] LABS: ANISOCYTOSIS 1+
[2017-12-01] MEDS: HumaLOG INSULIN (NovoLOG) PER UNIT SC ×8 (07:30→22:26)
[2017-12-01] MEDS: SUCRALFATE SUSP 1GM/10ML UD PO ×8 (07:31→22:23)
[2017-12-01] MEDS: LISINOPRIL 40 MG TAB PO ×2 (08:58)
[2017-12-01] MEDS: DOCUSATE SODIUM 100 MG CAP PO ×4 (08:58→22:24)
[2017-12-01] MEDS: VITAMIN D 50,000 UNITS CAPSULE (ERGOCALCIFEROL 1.25MG) PO ×2 (08:59)
[2017-12-01] MEDS: GABAPENTIN 400 MG CAP PO ×4 (08:59→22:24)
[2017-12-01] MEDS: OMEPRAZOLE 20 MG CAP PO ×4 (08:59→22:24)
[2017-12-01 11:19] LABS: BEDSIDE GLUCOSE 551 MG/DL (70-105)
[2017-12-01 11:29] LABS: BEDSIDE GLUCOSE 309 MG/DL (70-105)
[2017-12-01 12:38] LABS: CPK CREATINE PHOSPHOKINASE 80 U/L (39-308); TROPONIN I < 0.02 NG/ML (< 0.10)
[2017-12-01 12:39] LABS: CK-MB VALUE MASS 2.1 NG/ML (0.0-3.6); MB/CK RELATIVE INDEX 2.62 (< OR =4)
[2017-12-01] MEDS: LEVEMIR (INSULIN DETEMIR) 1 UNITS/0.01ML SC ×2 (21:00)
[2017-12-01] MEDS: ATORVASTATIN 20 MG TAB PO ×2 (22:23)
[2017-12-01] MEDS: ASPIRIN 81 MG ENTERIC TAB PO ×2 (22:24)
[2017-12-01] MEDS: NORTRIPTYLINE 25 MG CAP PO ×2 (22:24)
[2017-12-01] MEDS: ENOXAPARIN 40 MG/0.4 ML SYRINGE (J1650) SC ×2 (22:26)
[2017-12-02 07:11] LABS: BEDSIDE GLUCOSE 313 MG/DL (70-105)
[2017-12-02] MEDS: HumaLOG INSULIN (NovoLOG) PER UNIT SC ×8 (07:56→21:02)
[2017-12-02] MEDS: LISINOPRIL 40 MG TAB PO ×2 (07:56)
[2017-12-02] MEDS: SUCRALFATE SUSP 1GM/10ML UD PO ×8 (07:56→21:00)
[2017-12-02] MEDS: GABAPENTIN 400 MG CAP PO ×4 (07:57→21:01)
[2017-12-02] MEDS: OMEPRAZOLE 20 MG CAP PO ×4 (07:57→21:00)
[2017-12-02] MEDS: DOCUSATE SODIUM 100 MG CAP PO ×4 (07:57→21:01)
[2017-12-02 08:20] LABS: BASO # 0.1 10^3/uL (0.0-0.2); BASO % 0.7 % (0.0-1.0); EOS # 0.3 10^3/uL (0.0-0.50); EOS % 4.5 % (0.0-3.0); HEMATOCRIT 34.8 % (42.0-52.0); HEMOGLOBIN 12.3 g/dl (14.0-18.0); IMMATURE GRANULOCYTE % 0.1 % (0-0); LYMPH # 3.2 10^3/uL (1.5-4.5); LYMPH % 46.6 % (24.0-44.0); MEAN CORPUSCULAR HEMOGLOBIN 28.6 pg (27.0-33.0); MEAN CORPUSCULAR HGB CONC 35.3 g/dl (32.0-36.5); MEAN CORPUSCULAR VOLUME 80.9 fl (80.0-96.0); MONO # 0.6 10^3/uL (0.0-0.8); MONO % 8.1 % (0.0-5.0); NEUTROPHILS # 2.8 10^3/uL (1.8-7.7); PLATELET COUNT, AUTOMATED 187 10^3/uL (150-450); RED CELL DISTRIBUTION WIDTH 11.3 % (11.5-14.5); WHITE BLOOD COUNT 6.9 10^3/uL (4.0-10.0)
[2017-12-02 08:41] LABS: LIPASE 285 U/L (73-393)
[2017-12-02 08:55] LABS: ALBUMIN 2.9 GM/DL (3.2-5.2); ALBUMIN/GLOBULIN RATIO 0.71 (1.00-1.93); ALKALINE PHOSPHATASE 69 U/L (45-117); ALT/SGPT 21 U/L (12-78); ANION GAP 6 MEQ/L (8-16); AST/SGOT 18 U/L (7-37); BILIRUBIN,TOTAL 0.2 MG/DL (0.2-1.0); BLOOD UREA NITROGEN 14 MG/DL (7-18); CALCIUM LEVEL 8.6 MG/DL (8.5-10.1); CARBON DIOXIDE LEVEL 28 MEQ/L (21-32); CHLORIDE LEVEL 105 MEQ/L (98-107); CREATININE FOR GFR 1.13 MG/DL (0.70-1.30); GLOMERULAR FILTRATION RATE > 60.0 (>56); GLUCOSE, FASTING 301 MG/DL (70-100); POTASSIUM SERUM 4.1 MEQ/L (3.5-5.1); SODIUM LEVEL 139 MEQ/L (136-145)
[2017-12-02 09:02] LABS: CONTROL LINE HPYORI INT CTR LINE PRESENT; H PYLORI QUALITATIVE IgG NEGATIVE (NEGATIVE)
[2017-12-02 11:45] LABS: BEDSIDE GLUCOSE 428 MG/DL (70-105)
[2017-12-02 11:45] LABS: BEDSIDE GLUCOSE 405 MG/DL (70-105)
[2017-12-02 12:08] LABS: BEDSIDE GLUCOSE 292 MG/DL (70-105)
[2017-12-02] MEDS: GI COCKTAIL 50ML BTL(HYOSCYAMINE/MAALOX/LIDOCAINE VISCOUS)(1:3:1) PO ×2 (16:21)
[2017-12-02 16:36] LABS: BEDSIDE GLUCOSE 272 MG/DL (70-105)
[2017-12-02 20:14] LABS: BEDSIDE GLUCOSE 332 MG/DL (70-105)
[2017-12-02 20:58] LABS: BEDSIDE GLUCOSE 368 MG/DL (70-105)
[2017-12-02] MEDS: LEVEMIR (INSULIN DETEMIR) 1 UNITS/0.01ML SC ×2 (21:00)
[2017-12-02] MEDS: ENOXAPARIN 40 MG/0.4 ML SYRINGE (J1650) SC ×2 (21:00)
[2017-12-02] MEDS: ATORVASTATIN 20 MG TAB PO ×2 (21:00)
[2017-12-02] MEDS: ASPIRIN 81 MG ENTERIC TAB PO ×2 (21:00)
[2017-12-02] MEDS: NORTRIPTYLINE 25 MG CAP PO ×2 (21:01)
[2017-12-04 00:06] LABS: H PYLORI SERUM QUANT IGA <9.0 units (0.0-8.9)
[2017-12-04 00:06] LABS: H PYLORI SERUM QUANT IGM <9.0 units (0.0-8.9)
== END 2017-12-02 23:14 | disposition home or self-care (01) ==
LOC: M MSPAV 12-01 13:07 → M ED 16:32 → M ED INP 19:22
PROVIDERS: General Practice
DX: K29.70 Gastritis, unspecified, without bleeding (principal); K20.9 Esophagitis, unspecified; K44.9 Diaphragmatic hernia without obstruction or gangrene; R07.9 Chest pain, unspecified; R10.9 Unspecified abdominal pain; E11.21 Type 2 diabetes mellitus with diabetic nephropathy; E11.65 Type 2 diabetes mellitus with hyperglycemia; I10 Essential (primary) hypertension; E78.5 Hyperlipidemia, unspecified; J45.909 Unspecified asthma, uncomplicated; D64.9 Anemia, unspecified; R74.8 Abnormal levels of other serum enzymes; K86.1 Other chronic pancreatitis; E55.9 Vitamin D deficiency, unspecified; I69.351 Hemiplegia and hemiparesis following cerebral infarction affecting right dominant side; I25.2 Old myocardial infarction; Z79.899 Other long term (current) drug therapy; Z79.82 Long term (current) use of aspirin; Z79.4 Long term (current) use of insulin; Z79.891 Long term (current) use of opiate analgesic; Z91.018 Allergy to other foods; Z91.010 Allergy to peanuts; Z91.14 Patient's other noncompliance with medication regimen
CPT/HCPCS: 96372

== ENCOUNTER → 2018-01-02 | Outpatient (REF) | payer OTHER ==
[2018-01-02 17:06] LABS: HEMATOCRIT 41.8 % (42.0-52.0); HEMOGLOBIN 14.6 g/dl (14.0-18.0); MEAN CORPUSCULAR HEMOGLOBIN 28.4 pg (27.0-33.0); MEAN CORPUSCULAR HGB CONC 34.9 g/dl (32.0-36.5); MEAN CORPUSCULAR VOLUME 81.3 fl (80.0-96.0); PLATELET COUNT, AUTOMATED 225 10^3/uL (150-450); RED BLOOD COUNT 5.14 10^6/uL (4.30-6.10); RED CELL DISTRIBUTION WIDTH 11.4 % (11.5-14.5); WHITE BLOOD COUNT 8.3 10^3/uL (4.0-10.0)
[2018-01-02 17:46] LABS: ALBUMIN 3.7 GM/DL (3.2-5.2); ALBUMIN/GLOBULIN RATIO 0.82 (1.00-1.93); ALKALINE PHOSPHATASE 73 U/L (45-117); ALT/SGPT 24 U/L (12-78); ANION GAP 9 MEQ/L (8-16); AST/SGOT 15 U/L (7-37); BILIRUBIN,TOTAL 0.4 MG/DL (0.2-1.0); BLOOD UREA NITROGEN 14 MG/DL (7-18); CALCIUM LEVEL 9.2 MG/DL (8.5-10.1); CARBON DIOXIDE LEVEL 26 MEQ/L (21-32); CHLORIDE LEVEL 101 MEQ/L (98-107); CHOLESTEROL LEVEL 170 MG/DL (<200); CHOLESTEROL RISK RATIO 4.146 (<5); CREATININE FOR GFR 1.06 MG/DL (0.70-1.30); GLOMERULAR FILTRATION RATE > 60.0 (>56); GLUCOSE, FASTING 350 MG/DL (70-100); HDL CHOLESTEROL 41 MG/DL (>40); NON-HDL-C 129 MG/DL; POTASSIUM SERUM 4.7 MEQ/L (3.5-5.1); SODIUM LEVEL 136 MEQ/L (136-145); TOTAL PROTEIN 8.2 GM/DL (6.4-8.2); TRIGLYCERIDES LEVEL 205 MG/DL (<150)
[2018-01-02 18:31] LABS: ESTIMATED AVERAGE GLUCOSE 326 MG/DL (60-110)
[2018-01-02 18:34] LABS: TOTAL 25(OH) VITAMIN D 48.8 NG/ML (30.0-100.0)
== END ==
LOC: M SFHCCLAY 10:26
DX: K21.9 Gastro-esophageal reflux disease without esophagitis (principal); I10 Essential (primary) hypertension; E11.69 Type 2 diabetes mellitus with other specified complication; E78.5 Hyperlipidemia, unspecified; E55.9 Vitamin D deficiency, unspecified

== ENCOUNTER 2018-01-07 16:13 | Inpatient (IN) | payer OTHER ==
[2018-01-07] MEDS: MORPHINE 2 MG/ML 1ML SYRINGE (J2270) IV (17:54)
[2018-01-07] MEDS: PANTOPRAZOLE 40MG INJ (PROTONIX) (C9113) IV (17:54)
[2018-01-07] MEDS: NS 1,000 ML IV ×2 (17:54→22:39)
[2018-01-07 17:59] LABS: BASO # 0.1 10^3/uL (0.0-0.2); BASO % 0.8 % (0.0-1.0); EOS # 0.2 10^3/uL (0.0-0.50); EOS % 2.2 % (0.0-3.0); HEMATOCRIT 35.9 % (42.0-52.0); HEMOGLOBIN 12.9 g/dl (14.0-18.0); IMMATURE GRANULOCYTE % 0.2 % (0-3.0); LYMPH # 3.6 10^3/uL (1.5-4.5); LYMPH % 39.6 % (24.0-44.0); MEAN CORPUSCULAR HEMOGLOBIN 28.5 pg (27.0-33.0); MEAN CORPUSCULAR HGB CONC 35.9 g/dl (32.0-36.5); MEAN CORPUSCULAR VOLUME 79.2 fl (80.0-96.0); MONO # 0.6 10^3/uL (0.0-0.8); MONO % 6.4 % (0.0-5.0); NEUTROPHILS # 4.6 10^3/uL (1.8-7.7); NEUTROPHILS % 50.8 % (36.0-66.0); PLATELET COUNT, AUTOMATED 205 10^3/uL (150-450); RED BLOOD COUNT 4.53 10^6/uL (4.30-6.10); RED CELL DISTRIBUTION WIDTH 11.4 % (11.5-14.5); WHITE BLOOD COUNT 9.1 10^3/uL (4.0-10.0)
[2018-01-07 18:09] LABS: INR 0.94; PROTHROMBIN TIME 12.6 SECONDS (12.4-14.5)
[2018-01-07 18:10] LABS: PARTIAL THROMBOPLASTIN TIME 24.5 SECONDS (26.8-37.9)
[2018-01-07 18:23] LABS: ALBUMIN 3.1 GM/DL (3.2-5.2); ALBUMIN/GLOBULIN RATIO 0.74 (1.00-1.93); ALKALINE PHOSPHATASE 70 U/L (45-117); ALT/SGPT 20 U/L (12-78); AMYLASE 111 U/L (25-115); ANION GAP 8 MEQ/L (8-16); AST/SGOT 12 U/L (7-37); BILIRUBIN,DIRECT < 0.1 MG/DL (0.0-0.2); BILIRUBIN,TOTAL 0.3 MG/DL (0.2-1.0); BLOOD UREA NITROGEN 12 MG/DL (7-18); CALCIUM LEVEL 8.9 MG/DL (8.5-10.1); CARBON DIOXIDE LEVEL 27 MEQ/L (21-32); CHLORIDE LEVEL 100 MEQ/L (98-107); CREATININE FOR GFR 0.97 MG/DL (0.70-1.30); GLOMERULAR FILTRATION RATE > 60.0 (>56); GLUCOSE, FASTING 327 MG/DL (70-100); LIPASE 1005 U/L (73-393); POTASSIUM SERUM 3.9 MEQ/L (3.5-5.1); SODIUM LEVEL 135 MEQ/L (136-145); TOTAL PROTEIN 7.3 GM/DL (6.4-8.2); TROPONIN I < 0.02 NG/ML (< 0.10)
[2018-01-07 18:25] LABS: CK-MB VALUE MASS 2.3 NG/ML (0.0-3.6); CPK CREATINE PHOSPHOKINASE 100 U/L (39-308)
[2018-01-07 18:27] LABS: LACTIC ACID SEPSIS PROTOCOL 1.9 MMOL/L (0.4-2.0)
[2018-01-07] MEDS ORDERED: ISOVUE-370 76% 100ML VIAL (Q9967) As Ordered (18:41)
[2018-01-07 18:53] LABS: ETHYL ALCOHOL (ETHANOL) < 0.003 % (0.000-0.010)
[2018-01-07] MEDS ORDERED: MORPHINE 4 MG/ML 1ML VIAL (J2270) IV (19:45)
[2018-01-07] MEDS ORDERED: ONDANSETRON 4MG/2ML VIAL (J2405) IV (19:45)
[2018-01-07] MEDS ORDERED: GLUCOSE 4 GM CHEW TABLET PO (21:15)
[2018-01-07] MEDS ORDERED: GLUCAGON FOR INJ 1 MG VIAL (J1610) SC (21:15)
[2018-01-07] MEDS ORDERED: DEXTROSE 50% 50 ML SYRINGE IV (21:15)
[2018-01-07] MEDS ORDERED: ALBUTEROL 90 MCG/ACT 8GM HFA INHALER INH (21:15)
[2018-01-07] MEDS ORDERED: HumaLOG INSULIN (NovoLOG) PER UNIT SC (21:15)
[2018-01-07] MEDS ORDERED: DOCUSATE SODIUM 100 MG CAP PO (21:15)
[2018-01-07] MEDS: HEPARIN SOD (PORCINE) 5000 UNITS/ML VIAL SC (22:39)
[2018-01-07] MEDS: LEVEMIR (INSULIN DETEMIR) 1 UNITS/0.01ML SC (22:39)
[2018-01-07] MEDS: NORTRIPTYLINE 25 MG CAP PO (23:02)
[2018-01-07 23:20] LABS: CK-MB VALUE MASS 2.1 NG/ML (0.0-3.6); CPK CREATINE PHOSPHOKINASE 90 U/L (39-308); MB/CK RELATIVE INDEX 2.33 (< OR =4); TROPONIN I < 0.02 NG/ML (< 0.10)
[2018-01-07] MEDS: HumaLOG INSULIN (NovoLOG) PER UNIT SC (23:40)
[2018-01-08] MEDS: NS 1,000 ML IV ×5 (03:35→20:40)
[2018-01-08] MEDS: HumaLOG INSULIN (NovoLOG) PER UNIT SC ×3 (06:04→18:00)
[2018-01-08] MEDS: HEPARIN SOD (PORCINE) 5000 UNITS/ML VIAL SC ×3 (06:05→20:38)
[2018-01-08 06:39] LABS: HEMATOCRIT 32.8 % (42.0-52.0); HEMOGLOBIN 11.5 g/dl (14.0-18.0); MEAN CORPUSCULAR HEMOGLOBIN 27.8 pg (27.0-33.0); MEAN CORPUSCULAR HGB CONC 35.1 g/dl (32.0-36.5); MEAN CORPUSCULAR VOLUME 79.2 fl (80.0-96.0); PLATELET COUNT, AUTOMATED 194 10^3/uL (150-450); RED BLOOD COUNT 4.14 10^6/uL (4.30-6.10); RED CELL DISTRIBUTION WIDTH 11.5 % (11.5-14.5); WHITE BLOOD COUNT 7.1 10^3/uL (4.0-10.0)
[2018-01-08 07:01] LABS: ALBUMIN 2.6 GM/DL (3.2-5.2); ALBUMIN/GLOBULIN RATIO 0.76 (1.00-1.93); ALKALINE PHOSPHATASE 39 U/L (45-117); ALT/SGPT 17 U/L (12-78); ANION GAP 8 MEQ/L (8-16); AST/SGOT 10 U/L (7-37); BILIRUBIN,TOTAL 0.3 MG/DL (0.2-1.0); BLOOD UREA NITROGEN 10 MG/DL (7-18); CALCIUM LEVEL 7.9 MG/DL (8.5-10.1); CARBON DIOXIDE LEVEL 25 MEQ/L (21-32); CHLORIDE LEVEL 108 MEQ/L (98-107); CREATININE FOR GFR 0.83 MG/DL (0.70-1.30); GLOMERULAR FILTRATION RATE > 60.0 (>56); GLUCOSE, FASTING 185 MG/DL (70-100); LIPASE 207 U/L (73-393); MAGNESIUM LEVEL 1.7 MG/DL (1.8-2.4); POTASSIUM SERUM 3.6 MEQ/L (3.5-5.1); SODIUM LEVEL 141 MEQ/L (136-145)
[2018-01-08] MEDS: GABAPENTIN 400 MG CAP PO ×2 (09:48→20:40)
[2018-01-08] MEDS: LISINOPRIL 40 MG TAB PO (09:48)
[2018-01-08] MEDS: PANTOPRAZOLE 40MG INJ (PROTONIX) (C9113) IV (18:00)
[2018-01-08] MEDS: LEVEMIR (INSULIN DETEMIR) 1 UNITS/0.01ML SC (20:39)
[2018-01-08] MEDS: ASPIRIN 81 MG ENTERIC TAB PO (20:40)
[2018-01-08] MEDS: NORTRIPTYLINE 25 MG CAP PO (20:40)
[2018-01-09] MEDS: HumaLOG INSULIN (NovoLOG) PER UNIT SC ×5 (00:20→21:57)
[2018-01-09] MEDS: HEPARIN SOD (PORCINE) 5000 UNITS/ML VIAL SC ×3 (05:40→21:56)
[2018-01-09 06:17] LABS: HEMATOCRIT 35.5 % (42.0-52.0); HEMOGLOBIN 12.5 g/dl (14.0-18.0); MEAN CORPUSCULAR HEMOGLOBIN 28.5 pg (27.0-33.0); MEAN CORPUSCULAR HGB CONC 35.2 g/dl (32.0-36.5); MEAN CORPUSCULAR VOLUME 80.9 fl (80.0-96.0); PLATELET COUNT, AUTOMATED 197 10^3/uL (150-450); RED BLOOD COUNT 4.39 10^6/uL (4.30-6.10); RED CELL DISTRIBUTION WIDTH 11.5 % (11.5-14.5); WHITE BLOOD COUNT 6.9 10^3/uL (4.0-10.0)
[2018-01-09 06:47] LABS: ALBUMIN 2.7 GM/DL (3.2-5.2); ALBUMIN/GLOBULIN RATIO 0.71 (1.00-1.93); ALKALINE PHOSPHATASE 36 U/L (45-117); ALT/SGPT 17 U/L (12-78); ANION GAP 8 MEQ/L (8-16); AST/SGOT 12 U/L (7-37); BILIRUBIN,TOTAL 0.4 MG/DL (0.2-1.0); BLOOD UREA NITROGEN 8 MG/DL (7-18); CALCIUM LEVEL 8.5 MG/DL (8.5-10.1); CARBON DIOXIDE LEVEL 25 MEQ/L (21-32); CHLORIDE LEVEL 108 MEQ/L (98-107); CREATININE FOR GFR 0.81 MG/DL (0.70-1.30); GLOMERULAR FILTRATION RATE > 60.0 (>56); GLUCOSE, FASTING 170 MG/DL (70-100); LIPASE 188 U/L (73-393); MAGNESIUM LEVEL 1.9 MG/DL (1.8-2.4); POTASSIUM SERUM 3.5 MEQ/L (3.5-5.1); SODIUM LEVEL 141 MEQ/L (136-145); TOTAL PROTEIN 6.5 GM/DL (6.4-8.2)
[2018-01-09] MEDS ORDERED: DEXTROSE 50% 50 ML SYRINGE IV (08:00)
[2018-01-09] MEDS ORDERED: GLUCOSE 4 GM CHEW TABLET PO (08:00)
[2018-01-09] MEDS ORDERED: GLUCAGON FOR INJ 1 MG VIAL (J1610) SC (08:00)
[2018-01-09] MEDS: GABAPENTIN 400 MG CAP PO ×2 (09:25→21:57)
[2018-01-09] MEDS ORDERED: HumaLOG INSULIN (NovoLOG) PER UNIT SC (12:00)
[2018-01-09] MEDS: PANTOPRAZOLE 40MG INJ (PROTONIX) (C9113) IV (17:57)
[2018-01-09] MEDS: CEFTRIAXONE SOD 1 GM in APPROPRIATE DILUENT 1 EA IV (18:40)
[2018-01-09] MEDS: NORTRIPTYLINE 25 MG CAP PO (21:57)
[2018-01-09] MEDS: ASPIRIN 81 MG ENTERIC TAB PO (21:57)
[2018-01-09] MEDS: LEVEMIR (INSULIN DETEMIR) 1 UNITS/0.01ML SC (21:57)
[2018-01-10] MEDS: HEPARIN SOD (PORCINE) 5000 UNITS/ML VIAL SC ×3 (05:44→21:03)
[2018-01-10 07:01] LABS: HEMATOCRIT 34.1 % (42.0-52.0); HEMOGLOBIN 12.1 g/dl (14.0-18.0); MEAN CORPUSCULAR HEMOGLOBIN 28.3 pg (27.0-33.0); MEAN CORPUSCULAR HGB CONC 35.5 g/dl (32.0-36.5); MEAN CORPUSCULAR VOLUME 79.9 fl (80.0-96.0); PLATELET COUNT, AUTOMATED 202 10^3/uL (150-450); RED BLOOD COUNT 4.27 10^6/uL (4.30-6.10); RED CELL DISTRIBUTION WIDTH 11.5 % (11.5-14.5); WHITE BLOOD COUNT 7.3 10^3/uL (4.0-10.0)
[2018-01-10 07:23] LABS: ALBUMIN 2.6 GM/DL (3.2-5.2); ALBUMIN/GLOBULIN RATIO 0.65 (1.00-1.93); ALKALINE PHOSPHATASE 69 U/L (45-117); ALT/SGPT 18 U/L (12-78); ANION GAP 7 MEQ/L (8-16); AST/SGOT 14 U/L (7-37); BILIRUBIN,TOTAL 0.2 MG/DL (0.2-1.0); BLOOD UREA NITROGEN 11 MG/DL (7-18); CALCIUM LEVEL 8.4 MG/DL (8.5-10.1); CARBON DIOXIDE LEVEL 27 MEQ/L (21-32); CHLORIDE LEVEL 107 MEQ/L (98-107); CREATININE FOR GFR 1.18 MG/DL (0.70-1.30); GLOMERULAR FILTRATION RATE > 60.0 (>56); GLUCOSE, FASTING 320 MG/DL (70-100); LIPASE 189 U/L (73-393); POTASSIUM SERUM 3.8 MEQ/L (3.5-5.1); SODIUM LEVEL 141 MEQ/L (136-145); TOTAL PROTEIN 6.6 GM/DL (6.4-8.2)
[2018-01-10] MEDS: GABAPENTIN 400 MG CAP PO ×2 (08:28→21:05)
[2018-01-10] MEDS: HumaLOG INSULIN (NovoLOG) PER UNIT SC ×4 (08:29→21:05)
[2018-01-10 12:13] LABS: BEDSIDE GLUCOSE 164 MG/DL (70-105)
[2018-01-10 12:13] LABS: BEDSIDE GLUCOSE 165 MG/DL (70-105)
[2018-01-10 12:13] LABS: BEDSIDE GLUCOSE 195 MG/DL (70-105)
[2018-01-10 12:15] LABS: BEDSIDE GLUCOSE 315 MG/DL (70-105)
[2018-01-10 12:15] LABS: BEDSIDE GLUCOSE 276 MG/DL (70-105)
[2018-01-10 12:16] LABS: BEDSIDE GLUCOSE 279 MG/DL (70-105)
[2018-01-10 12:16] LABS: BEDSIDE GLUCOSE 264 MG/DL (70-105)
[2018-01-10 12:16] LABS: BEDSIDE GLUCOSE 268 MG/DL (70-105)
[2018-01-10] MEDS: PANTOPRAZOLE 40MG INJ (PROTONIX) (C9113) IV (16:48)
[2018-01-10] MEDS: CEFTRIAXONE SOD 1 GM in APPROPRIATE DILUENT 1 EA IV (16:48)
[2018-01-10] MEDS: LEVEMIR (INSULIN DETEMIR) 1 UNITS/0.01ML SC (21:05)
[2018-01-10] MEDS: NORTRIPTYLINE 25 MG CAP PO (21:06)
[2018-01-10] MEDS: ASPIRIN 81 MG ENTERIC TAB PO (21:06)
[2018-01-10 22:07] LABS: BEDSIDE GLUCOSE 241 MG/DL (70-105)
[2018-01-10 22:07] LABS: BEDSIDE GLUCOSE 191 MG/DL (70-105)
[2018-01-10 22:08] LABS: BEDSIDE GLUCOSE 272 MG/DL (70-105)
[2018-01-11] MEDS: HEPARIN SOD (PORCINE) 5000 UNITS/ML VIAL SC ×3 (06:06→19:38)
[2018-01-11 06:13] LABS: HEMOGLOBIN 12.1 g/dl (14.0-18.0); MEAN CORPUSCULAR HEMOGLOBIN 28.6 pg (27.0-33.0); MEAN CORPUSCULAR HGB CONC 35.6 g/dl (32.0-36.5); MEAN CORPUSCULAR VOLUME 80.4 fl (80.0-96.0); PLATELET COUNT, AUTOMATED 195 10^3/uL (150-450); RED BLOOD COUNT 4.23 10^6/uL (4.30-6.10); RED CELL DISTRIBUTION WIDTH 11.4 % (11.5-14.5); WHITE BLOOD COUNT 5.9 10^3/uL (4.0-10.0)
[2018-01-11 06:47] LABS: ALBUMIN 2.7 GM/DL (3.2-5.2); ALBUMIN/GLOBULIN RATIO 0.69 (1.00-1.93); ALKALINE PHOSPHATASE 65 U/L (45-117); ALT/SGPT 23 U/L (12-78); ANION GAP 9 MEQ/L (8-16); AST/SGOT 20 U/L (7-37); BILIRUBIN,TOTAL 0.2 MG/DL (0.2-1.0); BLOOD UREA NITROGEN 11 MG/DL (7-18); CALCIUM LEVEL 8.5 MG/DL (8.5-10.1); CARBON DIOXIDE LEVEL 27 MEQ/L (21-32); CHLORIDE LEVEL 106 MEQ/L (98-107); CREATININE FOR GFR 1.03 MG/DL (0.70-1.30); GLOMERULAR FILTRATION RATE > 60.0 (>56); GLUCOSE, FASTING 310 MG/DL (70-100); LIPASE 161 U/L (73-393); MAGNESIUM LEVEL 1.9 MG/DL (1.8-2.4); POTASSIUM SERUM 3.7 MEQ/L (3.5-5.1); SODIUM LEVEL 142 MEQ/L (136-145); TOTAL PROTEIN 6.6 GM/DL (6.4-8.2)
[2018-01-11] MEDS: HumaLOG INSULIN (NovoLOG) PER UNIT SC ×4 (08:15→22:53)
[2018-01-11] MEDS: GABAPENTIN 400 MG CAP PO ×2 (08:16→19:33)
[2018-01-11] MEDS: CEFTRIAXONE SOD 1 GM in APPROPRIATE DILUENT 1 EA IV (16:18)
[2018-01-11] MEDS: PANTOPRAZOLE 40MG INJ (PROTONIX) (C9113) IV (17:33)
[2018-01-11] MEDS: ACETAMINOPHEN TAB 650MG DOSE (2X325MG) PO (19:33)
[2018-01-11] MEDS: ASPIRIN 81 MG ENTERIC TAB PO (19:33)
[2018-01-11] MEDS: NORTRIPTYLINE 25 MG CAP PO (19:34)
[2018-01-11] MEDS: LEVEMIR (INSULIN DETEMIR) 1 UNITS/0.01ML SC (19:34)
[2018-01-11 20:02] LABS: BEDSIDE GLUCOSE 305 MG/DL (70-105)
[2018-01-11 20:02] LABS: BEDSIDE GLUCOSE 364 MG/DL (70-105)
[2018-01-11 23:02] LABS: BEDSIDE GLUCOSE 284 MG/DL (70-105)
[2018-01-12] MEDS: HEPARIN SOD (PORCINE) 5000 UNITS/ML VIAL SC ×2 (05:49→13:33)
[2018-01-12 06:31] LABS: HEMATOCRIT 32.9 % (42.0-52.0); HEMOGLOBIN 11.6 g/dl (14.0-18.0); MEAN CORPUSCULAR HEMOGLOBIN 28.2 pg (27.0-33.0); MEAN CORPUSCULAR HGB CONC 35.3 g/dl (32.0-36.5); MEAN CORPUSCULAR VOLUME 79.9 fl (80.0-96.0); PLATELET COUNT, AUTOMATED 206 10^3/uL (150-450); RED BLOOD COUNT 4.12 10^6/uL (4.30-6.10); RED CELL DISTRIBUTION WIDTH 11.6 % (11.5-14.5); WHITE BLOOD COUNT 6.4 10^3/uL (4.0-10.0)
[2018-01-12 06:48] LABS: ALBUMIN 2.8 GM/DL (3.2-5.2); ALBUMIN/GLOBULIN RATIO 0.74 (1.00-1.93); ALKALINE PHOSPHATASE 58 U/L (45-117); ALT/SGPT 29 U/L (12-78); ANION GAP 7 MEQ/L (8-16); AST/SGOT 25 U/L (7-37); BILIRUBIN,TOTAL 0.1 MG/DL (0.2-1.0); BLOOD UREA NITROGEN 12 MG/DL (7-18); CALCIUM LEVEL 8.5 MG/DL (8.5-10.1); CARBON DIOXIDE LEVEL 28 MEQ/L (21-32); CHLORIDE LEVEL 105 MEQ/L (98-107); GLOMERULAR FILTRATION RATE > 60.0 (>56); GLUCOSE, FASTING 247 MG/DL (70-100); LIPASE 160 U/L (73-393); MAGNESIUM LEVEL 1.8 MG/DL (1.8-2.4); POTASSIUM SERUM 3.3 MEQ/L (3.5-5.1); SODIUM LEVEL 140 MEQ/L (136-145); TOTAL PROTEIN 6.6 GM/DL (6.4-8.2)
[2018-01-12] MEDS: GABAPENTIN 400 MG CAP PO (08:25)
[2018-01-12] MEDS: HumaLOG INSULIN (NovoLOG) PER UNIT SC ×2 (08:25→12:19)
[2018-01-12 12:20] LABS: BEDSIDE GLUCOSE 303 MG/DL (70-105)
[2018-01-12 12:20] LABS: BEDSIDE GLUCOSE 245 MG/DL (70-105)
== END 2018-01-12 13:58 | disposition home or self-care (01) | DRG 282 ==
LOC: M MS5PR 01-11 14:18 → M ED 16:13 → M ED INP 20:18 → M MS5PR 22:10
DX: K85.80 Other acute pancreatitis without necrosis or infection (principal); E11.40 Type 2 diabetes mellitus with diabetic neuropathy, unspecified; E55.9 Vitamin D deficiency, unspecified; E11.65 Type 2 diabetes mellitus with hyperglycemia; I10 Essential (primary) hypertension; K44.9 Diaphragmatic hernia without obstruction or gangrene; I25.10 Atherosclerotic heart disease of native coronary artery without angina pectoris; K21.9 Gastro-esophageal reflux disease without esophagitis; Z86.73 Personal history of transient ischemic attack (TIA), and cerebral infarction without residual deficits; Z90.49 Acquired absence of other specified parts of digestive tract; Z79.82 Long term (current) use of aspirin; Z79.4 Long term (current) use of insulin

== ENCOUNTER 2018-01-21 23:24 | Emergency (ER) | payer OTHER ==
[2018-01-22 04:05] LABS: BASO # 0.1 10^3/uL (0.0-0.2); BASO % 0.9 % (0.0-1.0); EOS # 0.2 10^3/uL (0.0-0.50); HEMATOCRIT 35.9 % (42.0-52.0); HEMOGLOBIN 12.9 g/dl (14.0-18.0); IMMATURE GRANULOCYTE % 0.1 % (0-3.0); LYMPH # 4.1 10^3/uL (1.5-4.5); LYMPH % 53.5 % (24.0-44.0); MEAN CORPUSCULAR HEMOGLOBIN 28.5 pg (27.0-33.0); MEAN CORPUSCULAR HGB CONC 35.9 g/dl (32.0-36.5); MEAN CORPUSCULAR VOLUME 79.2 fl (80.0-96.0); MONO # 0.6 10^3/uL (0.0-0.8); MONO % 7.5 % (0.0-5.0); NEUTROPHILS # 2.7 10^3/uL (1.8-7.7); PLATELET COUNT, AUTOMATED 240 10^3/uL (150-450); RED BLOOD COUNT 4.53 10^6/uL (4.30-6.10); RED CELL DISTRIBUTION WIDTH 11.6 % (11.5-14.5); WHITE BLOOD COUNT 7.6 10^3/uL (4.0-10.0)
[2018-01-22 04:31] LABS: ALBUMIN 3.4 GM/DL (3.2-5.2); ALBUMIN/GLOBULIN RATIO 0.81 (1.00-1.93); ALKALINE PHOSPHATASE 104 U/L (45-117); ALT/SGPT 27 U/L (12-78); ANION GAP 9 MEQ/L (8-16); AST/SGOT 15 U/L (7-37); BILIRUBIN,DIRECT < 0.1 MG/DL (0.0-0.2); BILIRUBIN,TOTAL 0.2 MG/DL (0.2-1.0); BLOOD UREA NITROGEN 17 MG/DL (7-18); CARBON DIOXIDE LEVEL 27 MEQ/L (21-32); CHLORIDE LEVEL 102 MEQ/L (98-107); CREATININE FOR GFR 1.11 MG/DL (0.70-1.30); GLOMERULAR FILTRATION RATE > 60.0 (>56); GLUCOSE, FASTING 392 MG/DL (70-100); LIPASE 156 U/L (73-393); POTASSIUM SERUM 3.9 MEQ/L (3.5-5.1); SODIUM LEVEL 138 MEQ/L (136-145); TOTAL PROTEIN 7.6 GM/DL (6.4-8.2)
[2018-01-22] MEDS: GASTROGRAFIN SOLUTION 30ML PO ×2 (05:07→05:20)
[2018-01-22] MEDS: NS 1,000 ML IV ×2 (05:07→08:05)
[2018-01-22] MEDS: MORPHINE 4 MG/ML 1ML VIAL (J2270) IV (05:07)
[2018-01-22 05:36] LABS: KETONE, URINE AUTO RFX NEGATIVE (NEGATIVE); LEUKOCYTE ESTERASE UR AUTO RFX NEGATIVE (NEGATIVE); NITRITE, URINE AUTO RFX NEGATIVE (NEGATIVE); RBC, URINE AUTO RFX 0 /HPF (0-3); SPECIFIC GRAVITY UR AUTO RFX 1.029 (1.002-1.035); SQUAM EPITHELIAL CELL UR AURFX 0 /HPF (0-6); WBC, URINE AUTO RFX 0 /HPF (0-3)
[2018-01-22] MEDS ORDERED: ISOVUE-370 76% 100ML VIAL (Q9967) As Ordered (05:48)
[2018-01-22] MEDS: MAGNESIUM CITRATE 300 ML BTL PO ×2 (07:45→08:05)
[2018-01-22] MEDS: METOCLOPRAMIDE INJ 10MG/2ML VIAL (J2765) IV (08:05)
[2018-01-22] MEDS: FLEET ENEMA PR (08:27)
[2018-01-22] MEDS: GOLYTELY SOLN 4000 ML BTL PO (08:30)
== END 2018-01-22 10:21 | disposition home or self-care (01) ==
LOC: M ED 23:24
DX: K56.7 Ileus, unspecified (principal); K59.00 Constipation, unspecified; I25.10 Atherosclerotic heart disease of native coronary artery without angina pectoris; I11.9 Hypertensive heart disease without heart failure; E78.5 Hyperlipidemia, unspecified; J45.909 Unspecified asthma, uncomplicated; Z87.19 Personal history of other diseases of the digestive system; Z86.73 Personal history of transient ischemic attack (TIA), and cerebral infarction without residual deficits; Z91.018 Allergy to other foods; Z91.010 Allergy to peanuts; Z79.899 Other long term (current) drug therapy; Z79.82 Long term (current) use of aspirin; Z79.4 Long term (current) use of insulin
CPT/HCPCS: J2270

== ENCOUNTER 2018-02-20 22:18 | Emergency (ER) | payer OTHER ==
[2018-02-20 22:54] LABS: BASO # 0.1 10^3/uL (0.0-0.2); BASO % 0.7 % (0.0-1.0); EOS # 0.2 10^3/uL (0.0-0.50); EOS % 2.8 % (0.0-3.0); HEMATOCRIT 38.2 % (42.0-52.0); HEMOGLOBIN 13.8 g/dl (13.5-17.5); IMMATURE GRANULOCYTE % 0.2 % (0-3.0); LYMPH # 3.8 10^3/uL (1.5-4.5); LYMPH % 46.4 % (24.0-44.0); MEAN CORPUSCULAR HEMOGLOBIN 28.8 pg (27.0-33.0); MEAN CORPUSCULAR HGB CONC 36.1 g/dl (32.0-36.5); MEAN CORPUSCULAR VOLUME 79.6 fl (80.0-96.0); MONO # 0.5 10^3/uL (0.0-0.8); MONO % 6.6 % (0.0-5.0); NEUTROPHILS # 3.5 10^3/uL (1.8-7.7); NEUTROPHILS % 43.3 % (36.0-66.0); PLATELET COUNT, AUTOMATED 219 10^3/uL (150-450); RED CELL DISTRIBUTION WIDTH 11.7 % (11.5-14.5); WHITE BLOOD COUNT 8.2 10^3/uL (4.0-10.0)
[2018-02-20 23:06] LABS: ALBUMIN 3.6 GM/DL (3.2-5.2); ALBUMIN/GLOBULIN RATIO 0.78 (1.00-1.93); ALKALINE PHOSPHATASE 91 U/L (45-117); ALT/SGPT 26 U/L (12-78); ANION GAP 7 MEQ/L (8-16); AST/SGOT 16 U/L (7-37); BILIRUBIN,DIRECT < 0.1 MG/DL (0.0-0.2); BILIRUBIN,TOTAL 0.2 MG/DL (0.2-1.0); BLOOD UREA NITROGEN 9 MG/DL (7-18); CALCIUM LEVEL 8.8 MG/DL (8.5-10.1); CARBON DIOXIDE LEVEL 28 MEQ/L (21-32); CHLORIDE LEVEL 101 MEQ/L (98-107); CREATININE FOR GFR 1.13 MG/DL (0.70-1.30); GLOMERULAR FILTRATION RATE > 60.0 (>56); LIPASE 248 U/L (73-393); POTASSIUM SERUM 3.7 MEQ/L (3.5-5.1); SODIUM LEVEL 136 MEQ/L (136-145); TOTAL PROTEIN 8.2 GM/DL (6.4-8.2)
[2018-02-20 23:09] LABS: GLUCOSE, FASTING 435 MG/DL (70-100)
[2018-02-20] MEDS: HumuLIN R (REGULAR) INSULIN (NovoLIN R) **100U/ML** PER UNIT IV (23:53)
[2018-02-20] MEDS: NS 1,000 ML IV (23:53)
[2018-02-21 01:25] LABS: BEDSIDE GLUCOSE 245 MG/DL (70-105)
[2018-02-21] MEDS: MORPHINE 2 MG/ML 1ML SYRINGE (J2270) IV (02:06)
== END 2018-02-21 02:19 | disposition home or self-care (01) ==
LOC: M ED 02-21 02:19
DX: E11.65 Type 2 diabetes mellitus with hyperglycemia (principal); E11.9 Type 2 diabetes mellitus without complications; I10 Essential (primary) hypertension; E78.5 Hyperlipidemia, unspecified; K21.9 Gastro-esophageal reflux disease without esophagitis; J45.909 Unspecified asthma, uncomplicated; J44.9 Chronic obstructive pulmonary disease, unspecified; J30.2 Other seasonal allergic rhinitis; J30.1 Allergic rhinitis due to pollen; Z87.442 Personal history of urinary calculi; Z79.82 Long term (current) use of aspirin; Z79.84 Long term (current) use of oral hypoglycemic drugs; Z79.899 Other long term (current) drug therapy; Z91.010 Allergy to peanuts; Z91.018 Allergy to other foods
CPT/HCPCS: J2270

== ENCOUNTER 2018-03-18 21:22 | Emergency (ER) | payer OTHER ==
[2018-03-18 22:28] LABS: BASO # 0.1 10^3/uL (0.0-0.2); BASO % 0.7 % (0.0-1.0); EOS # 0.1 10^3/uL (0.0-0.50); EOS % 1.3 % (0.0-3.0); HEMATOCRIT 37.6 % (42.0-52.0); HEMOGLOBIN 13.3 g/dl (13.5-17.5); IMMATURE GRANULOCYTE % 0.2 % (0-3.0); LYMPH # 2.9 10^3/uL (1.5-4.5); LYMPH % 35.9 % (24.0-44.0); MEAN CORPUSCULAR HEMOGLOBIN 28.2 pg (27.0-33.0); MEAN CORPUSCULAR HGB CONC 35.4 g/dl (32.0-36.5); MEAN CORPUSCULAR VOLUME 79.8 fl (80.0-96.0); MONO # 0.5 10^3/uL (0.0-0.8); MONO % 5.6 % (0.0-5.0); NEUTROPHILS # 4.6 10^3/uL (1.8-7.7); NEUTROPHILS % 56.3 % (36.0-66.0); PLATELET COUNT, AUTOMATED 218 10^3/uL (150-450); RED BLOOD COUNT 4.71 10^6/uL (4.30-6.10); RED CELL DISTRIBUTION WIDTH 11.3 % (11.5-14.5); WHITE BLOOD COUNT 8.2 10^3/uL (4.0-10.0)
[2018-03-18 22:40] LABS: ALBUMIN 3.4 GM/DL (3.2-5.2); ALBUMIN/GLOBULIN RATIO 0.72 (1.00-1.93); ALKALINE PHOSPHATASE 87 U/L (45-117); ALT/SGPT 24 U/L (12-78); ANION GAP 7 MEQ/L (8-16); AST/SGOT 13 U/L (7-37); BILIRUBIN,DIRECT < 0.1 MG/DL (0.0-0.2); BILIRUBIN,TOTAL 0.3 MG/DL (0.2-1.0); BLOOD UREA NITROGEN 11 MG/DL (7-18); CALCIUM LEVEL 8.9 MG/DL (8.5-10.1); CARBON DIOXIDE LEVEL 27 MEQ/L (21-32); CHLORIDE LEVEL 100 MEQ/L (98-107); CK-MB VALUE MASS 2.5 NG/ML (<3.6); CPK CREATINE PHOSPHOKINASE 144 U/L (39-308); CREATININE FOR GFR 1.11 MG/DL (0.70-1.30); GLOMERULAR FILTRATION RATE > 60.0 (>56); LIPASE 744 U/L (73-393); MB/CK RELATIVE INDEX 1.73 (< OR =4); POTASSIUM SERUM 4.1 MEQ/L (3.5-5.1); SODIUM LEVEL 134 MEQ/L (136-145); TOTAL PROTEIN 8.1 GM/DL (6.4-8.2); TROPONIN I < 0.02 NG/ML (< 0.10)
[2018-03-18 22:47] LABS: GLUCOSE, FASTING 471 MG/DL (70-100)
[2018-03-18 22:54] LABS: ESTIMATED AVERAGE GLUCOSE 326 MG/DL (60-110)
[2018-03-18 22:56] LABS: ABG BASE EXCESS -0.5 (-2.0-2.0); ABG HCO3 24.2 MEQ/L (22.0-26.0); ABG O2 SATURATION 95.3 % (95.0-99.0); ABG PARTIAL PRESSURE CO2 39.7 mmHg (35.0-45.0); ABG TOTAL CO2 25.4 MEQ/L (22.0-29.0); ABG pH (ARTERIAL) 7.402 UNITS (7.350-7.450)
[2018-03-18] MEDS: HumuLIN R (REGULAR) INSULIN (NovoLIN R) **100U/ML** PER UNIT SC (23:24)
[2018-03-18] MEDS: PROMETHAZINE INJ 25 MG/ML VIAL (J2550) IM (23:25)
[2018-03-19 00:29] LABS: BEDSIDE GLUCOSE 391 MG/DL (70-105)
[2018-03-19 11:52] LABS: BEDSIDE GLUCOSE 489 MG/DL (70-105)
== END 2018-03-19 00:30 | disposition home or self-care (01) ==
LOC: M ED 03-19 00:30
DX: E11.65 Type 2 diabetes mellitus with hyperglycemia (principal); I10 Essential (primary) hypertension; I25.2 Old myocardial infarction; Z86.73 Personal history of transient ischemic attack (TIA), and cerebral infarction without residual deficits; Z79.899 Other long term (current) drug therapy; Z79.82 Long term (current) use of aspirin; Z79.4 Long term (current) use of insulin; Z91.010 Allergy to peanuts; Z91.018 Allergy to other foods; J30.2 Other seasonal allergic rhinitis
CPT/HCPCS: 93005

== ENCOUNTER 2018-04-12 13:34 | Emergency (ER) | payer OTHER ==
[2018-04-12 14:15] LABS: VENOUS BASE EXCESS -0.7 (-2.0-2.0); VENOUS HCO3 24.3 MEQ/L (23.0-27.0); VENOUS O2 SATURATION 98.8 % (60.0-80.0); VENOUS PARTIAL PRESSURE CO2 41.3 mmHg (38.0-50.0); VENOUS PARTIAL PRESSURE O2 145.7 mmHg (30.0-50.0); VENOUS PH 7.387 UNITS (7.330-7.430); VENOUS STANDARD HCO3 23.9 MEQ/L; VENOUS TOTAL CO2 25.5 MEQ/L (24.0-28.0)
[2018-04-12 14:16] LABS: BASO # 0.1 10^3/uL (0.0-0.2); BASO % 0.7 % (0.0-1.0); EOS # 0.1 10^3/uL (0.0-0.50); EOS % 1.6 % (0.0-3.0); HEMATOCRIT 35.3 % (42.0-52.0); HEMOGLOBIN 12.4 g/dl (13.5-17.5); IMMATURE GRANULOCYTE % 0.1 % (0-3.0); LYMPH # 2.9 10^3/uL (1.5-4.5); MEAN CORPUSCULAR HEMOGLOBIN 28.4 pg (27.0-33.0); MEAN CORPUSCULAR HGB CONC 35.1 g/dl (32.0-36.5); MEAN CORPUSCULAR VOLUME 80.8 fl (80.0-96.0); MONO # 0.4 10^3/uL (0.0-0.8); NEUTROPHILS # 3.6 10^3/uL (1.8-7.7); NEUTROPHILS % 50.6 % (36.0-66.0); PLATELET COUNT, AUTOMATED 194 10^3/uL (150-450); RED BLOOD COUNT 4.37 10^6/uL (4.30-6.10); RED CELL DISTRIBUTION WIDTH 11.5 % (11.5-14.5)
[2018-04-12 14:35] LABS: OSMOLALITY SERUM 304 MOSM/KG (275-295)
[2018-04-12 14:37] LABS: ESTIMATED AVERAGE GLUCOSE 355 MG/DL (60-110)
[2018-04-12] MEDS: NS 1,000 ML IV (14:37)
[2018-04-12 14:44] LABS: ACETONE/KETONE 1.31 MG/DL (<2.81); ALKALINE PHOSPHATASE 100 U/L (45-117); ALT/SGPT 22 U/L (12-78); ANION GAP 9 MEQ/L (8-16); AST/SGOT 20 U/L (7-37); BILIRUBIN,DIRECT < 0.1 MG/DL (0.0-0.2); BILIRUBIN,TOTAL 0.3 MG/DL (0.2-1.0); BLOOD UREA NITROGEN 8 MG/DL (7-18); CALCIUM LEVEL 8.4 MG/DL (8.5-10.1); CARBON DIOXIDE LEVEL 24 MEQ/L (21-32); CHLORIDE LEVEL 101 MEQ/L (98-107); CREATININE FOR GFR 1.09 MG/DL (0.70-1.30); GLOMERULAR FILTRATION RATE > 60.0 (>56); LIPASE 160 U/L (73-393); MAGNESIUM LEVEL 1.9 MG/DL (1.8-2.4); PHOSPHORUS LEVEL 3.8 MG/DL (2.5-4.9); POTASSIUM SERUM 4.5 MEQ/L (3.5-5.1); SODIUM LEVEL 134 MEQ/L (136-145); TOTAL PROTEIN 7.3 GM/DL (6.4-8.2)
[2018-04-12 14:46] LABS: BEDSIDE GLUCOSE 467 MG/DL (70-105)
[2018-04-12 15:06] LABS: GLUCOSE, FASTING 566 MG/DL (70-100)
[2018-04-12 16:07] LABS: BEDSIDE GLUCOSE 384 MG/DL (70-105)
[2018-04-12 16:10] LABS: VENOUS BASE EXCESS -1.6 (-2.0-2.0); VENOUS O2 SATURATION 92.4 % (60.0-80.0); VENOUS PARTIAL PRESSURE CO2 43.9 mmHg (38.0-50.0); VENOUS PARTIAL PRESSURE O2 67.7 mmHg (30.0-50.0); VENOUS PH 7.356 UNITS (7.330-7.430); VENOUS TOTAL CO2 25.4 MEQ/L (24.0-28.0)
[2018-04-15 11:10] LABS: BEDSIDE GLUCOSE 585 MG/DL (70-105)
== END 2018-04-12 16:56 | disposition home or self-care (01) ==
LOC: M ED 13:34
DX: E11.65 Type 2 diabetes mellitus with hyperglycemia (principal); I10 Essential (primary) hypertension; J45.909 Unspecified asthma, uncomplicated; F41.9 Anxiety disorder, unspecified; E78.00 Pure hypercholesterolemia, unspecified; E55.9 Vitamin D deficiency, unspecified; K76.0 Fatty (change of) liver, not elsewhere classified; N17.9 Acute kidney failure, unspecified; M54.9 Dorsalgia, unspecified; Z86.73 Personal history of transient ischemic attack (TIA), and cerebral infarction without residual deficits; Z87.891 Personal history of nicotine dependence; Z91.018 Allergy to other foods; Z91.010 Allergy to peanuts; Z79.899 Other long term (current) drug therapy; Z79.82 Long term (current) use of aspirin; Z79.84 Long term (current) use of oral hypoglycemic drugs
CPT/HCPCS: 93005

== ENCOUNTER 2018-05-07 21:29 | Observation (INO) | payer OTHER ==
[2018-05-07] MEDS: ATORVASTATIN 20 MG TAB PO (21:00)
[2018-05-07] MEDS: GABAPENTIN 400 MG CAP PO (21:00)
[2018-05-07 22:05] LABS: BASO # 0.1 10^3/uL (0.0-0.2); BASO % 0.8 % (0.0-1.0); EOS # 0.2 10^3/uL (0.0-0.50); EOS % 2.5 % (0.0-3.0); HEMOGLOBIN 12.4 g/dl (13.5-17.5); IMMATURE GRANULOCYTE % 0.1 % (0-3.0); LYMPH # 3.3 10^3/uL (1.5-4.5); LYMPH % 46.4 % (24.0-44.0); MEAN CORPUSCULAR HEMOGLOBIN 28.9 pg (27.0-33.0); MEAN CORPUSCULAR HGB CONC 35.4 g/dl (32.0-36.5); MEAN CORPUSCULAR VOLUME 81.6 fl (80.0-96.0); MONO # 0.6 10^3/uL (0.0-0.8); MONO % 8.2 % (0.0-5.0); PLATELET COUNT, AUTOMATED 214 10^3/uL (150-450); RED BLOOD COUNT 4.29 10^6/uL (4.30-6.10); RED CELL DISTRIBUTION WIDTH 11.7 % (11.5-14.5); WHITE BLOOD COUNT 7.2 10^3/uL (4.0-10.0)
[2018-05-07 22:13] LABS: INR 0.94; PROTHROMBIN TIME 12.7 SECONDS (12.1-14.4)
[2018-05-07 22:14] LABS: PARTIAL THROMBOPLASTIN TIME 23.1 SECONDS (25.4-37.6)
[2018-05-07 22:26] LABS: ANION GAP 10 MEQ/L (8-16); BLOOD UREA NITROGEN 19 MG/DL (7-18); CALCIUM LEVEL 8.8 MG/DL (8.5-10.1); CARBON DIOXIDE LEVEL 26 MEQ/L (21-32); CHLORIDE LEVEL 98 MEQ/L (98-107); CPK CREATINE PHOSPHOKINASE 166 U/L (39-308); CREATININE FOR GFR 1.22 MG/DL (0.70-1.30); ETHYL ALCOHOL (ETHANOL) < 0.003 % (0.000-0.010); FREE T4 1.12 NG/DL (0.76-1.46); GLOMERULAR FILTRATION RATE > 60.0 (>56); LIPASE 588 U/L (73-393); MAGNESIUM LEVEL 2.3 MG/DL (1.8-2.4); POTASSIUM SERUM 4.4 MEQ/L (3.5-5.1); SODIUM LEVEL 134 MEQ/L (136-145); TROPONIN I < 0.02 NG/ML (< 0.10)
[2018-05-07 22:28] LABS: GLUCOSE, FASTING 549 MG/DL (70-100)
[2018-05-07 22:29] LABS: CK-MB VALUE MASS 2.5 NG/ML (<3.6)
[2018-05-07 22:32] LABS: THYROID STIMULATING HORMONE 0.545 uIU/ML (0.358-3.740)
[2018-05-07] MEDS ORDERED: ISOVUE-370 76% 100ML VIAL (Q9967) As Ordered (22:59)
[2018-05-07] MEDS: HumuLIN R (REGULAR) INSULIN (NovoLIN R) **100U/ML** PER UNIT IV (23:09)
[2018-05-08] MEDS ORDERED: cefTRIAXone SOD 1 GM in D5W MINI-BAG PLUS 50 ML IV (00:15)
[2018-05-08] MEDS ORDERED: AZITHROMYCIN INJ 500 MG, VIAL MATE ADAPTER 1 EACH in D5W 250 ML IV (00:15)
[2018-05-08 00:20] LABS: BEDSIDE GLUCOSE 280 MG/DL (70-105)
[2018-05-08 00:57] LABS: AMPHETAMINES LEVEL URINE NEGATIVE (NEGATIVE); BARBITURATES URINE NEGATIVE (NEGATIVE); BENZODIAZEPINES URINE NEGATIVE (NEGATIVE); CANNABINOIDS URINE NEGATIVE (NEGATIVE); COCAINE METABOLITE URINE NEGATIVE (NEGATIVE); METHADONE URINE NEGATIVE (NEGATIVE); OPIATES URINE NEGATIVE (NEGATIVE); PHENCYCLIDINE URINE NEGATIVE (NEGATIVE)
[2018-05-08] MEDS ORDERED: DEXTROSE 50% 50 ML SYRINGE IV (01:30)
[2018-05-08] MEDS ORDERED: GLUCOSE 4 GM CHEW TABLET PO (01:30)
[2018-05-08] MEDS ORDERED: ACETAMINOPHEN TAB 650MG DOSE (2X325MG) PO (01:30)
[2018-05-08] MEDS ORDERED: BISACODYL 5 MG TAB PO (01:30)
[2018-05-08] MEDS ORDERED: DOCUSATE SODIUM 100 MG CAP PO (01:30)
[2018-05-08] MEDS ORDERED: traMADol 50 MG TAB PO (01:30)
[2018-05-08] MEDS ORDERED: GLUCAGON FOR INJ 1 MG VIAL (J1610) SC (01:30)
[2018-05-08] MEDS: ASPIRIN 81 MG ENTERIC TAB PO ×2 (02:09→20:05)
[2018-05-08] MEDS: NORTRIPTYLINE 25 MG CAP PO ×2 (02:51→20:05)
[2018-05-08] MEDS: NS 1,000 ML IV ×2 (03:29→17:36)
[2018-05-08 06:04] LABS: ESTIMATED AVERAGE GLUCOSE 338 MG/DL (60-110); HEMOGLOBIN A1c 13.4 %
[2018-05-08 06:11] LABS: ALBUMIN 2.9 GM/DL (3.2-5.2); ALBUMIN/GLOBULIN RATIO 0.69 (1.00-1.93); ALKALINE PHOSPHATASE 64 U/L (45-117); ALT/SGPT 19 U/L (12-78); ANION GAP 7 MEQ/L (8-16); AST/SGOT 11 U/L (7-37); BILIRUBIN,TOTAL 0.2 MG/DL (0.2-1.0); BLOOD UREA NITROGEN 14 MG/DL (7-18); CALCIUM LEVEL 8.5 MG/DL (8.5-10.1); CARBON DIOXIDE LEVEL 24 MEQ/L (21-32); CHLORIDE LEVEL 105 MEQ/L (98-107); CREATININE FOR GFR 0.85 MG/DL (0.70-1.30); GLOMERULAR FILTRATION RATE > 60.0 (>56); GLUCOSE, FASTING 318 MG/DL (70-100); POTASSIUM SERUM 3.9 MEQ/L (3.5-5.1); SODIUM LEVEL 136 MEQ/L (136-145); THYROID STIMULATING HORMONE 0.579 uIU/ML (0.358-3.740); TOTAL PROTEIN 7.1 GM/DL (6.4-8.2)
[2018-05-08] MEDS: HEPARIN SOD (PORCINE) 5000 UNITS/ML VIAL SC ×3 (06:13→21:13)
[2018-05-08] MEDS: HumaLOG INSULIN (NovoLOG) PER UNIT SC ×4 (07:59→20:10)
[2018-05-08] MEDS ORDERED: metFORMIN (GLUCOPHAGE) 500 MG TAB PO (08:00)
[2018-05-08] MEDS: LEVEMIR (INSULIN DETEMIR) 1 UNITS/0.01ML SC ×2 (08:54→20:06)
[2018-05-08] MEDS: LISINOPRIL 40 MG TAB PO (08:55)
[2018-05-08] MEDS: METOPROLOL SUCC *XL* 25MG TAB (TopROL *XL*) PO (08:55)
[2018-05-08] MEDS: hydroCHLOROthiazide 12.5 MG CAPSULE PO (08:56)
[2018-05-08] MEDS: RANOLAZINE 500 MG ER TAB PO (08:56)
[2018-05-08] MEDS: GABAPENTIN 400 MG CAP PO ×2 (08:56→20:05)
[2018-05-08] MEDS: OMEPRAZOLE 20 MG CAP PO (08:56)
[2018-05-08 11:53] LABS: BEDSIDE GLUCOSE 287 MG/DL (70-105)
[2018-05-08 17:05] LABS: BEDSIDE GLUCOSE 313 MG/DL (70-105)
[2018-05-08] MEDS: ATORVASTATIN 20 MG TAB PO (20:05)
[2018-05-08 20:06] LABS: BEDSIDE GLUCOSE 303 MG/DL (70-105)
[2018-05-08] MEDS ORDERED: LEVEMIR (INSULIN DETEMIR) 1 UNITS/0.01ML SC (21:00)
[2018-05-09] MEDS: NS 1,000 ML IV (05:15)
[2018-05-09] MEDS: HEPARIN SOD (PORCINE) 5000 UNITS/ML VIAL SC ×2 (05:15→14:00)
[2018-05-09 05:48] LABS: HEMATOCRIT 32.9 % (42.0-52.0); HEMOGLOBIN 11.8 g/dl (13.5-17.5); MEAN CORPUSCULAR HGB CONC 35.9 g/dl (32.0-36.5); MEAN CORPUSCULAR VOLUME 80.8 fl (80.0-96.0); PLATELET COUNT, AUTOMATED 192 10^3/uL (150-450); RED BLOOD COUNT 4.07 10^6/uL (4.30-6.10); RED CELL DISTRIBUTION WIDTH 11.4 % (11.5-14.5); WHITE BLOOD COUNT 6.7 10^3/uL (4.0-10.0)
[2018-05-09 06:09] LABS: ANION GAP 10 MEQ/L (8-16); BLOOD UREA NITROGEN 14 MG/DL (7-18); CALCIUM LEVEL 8.1 MG/DL (8.5-10.1); CARBON DIOXIDE LEVEL 24 MEQ/L (21-32); CHLORIDE LEVEL 105 MEQ/L (98-107); CREATININE FOR GFR 0.95 MG/DL (0.70-1.30); GLOMERULAR FILTRATION RATE > 60.0 (>56); GLUCOSE, FASTING 306 MG/DL (70-100); LDH LACTATE DEHYDROGENASE 114 U/L (87-241); LIPASE 167 U/L (73-393); POTASSIUM SERUM 3.6 MEQ/L (3.5-5.1); SODIUM LEVEL 139 MEQ/L (136-145)
[2018-05-09] MEDS: LEVEMIR (INSULIN DETEMIR) 1 UNITS/0.01ML SC (08:02)
[2018-05-09] MEDS: HumaLOG INSULIN (NovoLOG) PER UNIT SC ×2 (08:02→12:06)
[2018-05-09] MEDS: LISINOPRIL 40 MG TAB PO (08:02)
[2018-05-09] MEDS: OMEPRAZOLE 20 MG CAP PO (08:02)
[2018-05-09] MEDS: METOPROLOL SUCC *XL* 25MG TAB (TopROL *XL*) PO (08:03)
[2018-05-09] MEDS: GABAPENTIN 400 MG CAP PO (08:03)
[2018-05-09] MEDS: hydroCHLOROthiazide 12.5 MG CAPSULE PO (08:03)
[2018-05-09] MEDS: RANOLAZINE 500 MG ER TAB PO (08:03)
[2018-05-09 11:32] LABS: BEDSIDE GLUCOSE 340 MG/DL (70-105)
[2018-05-10 14:16] LABS: C-PEPTIDE 2.7 ng/mL (1.1-4.4)
== END 2018-05-09 15:37 | disposition home or self-care (01) ==
LOC: M ED INP 05-08 01:24 → M PCU 05-08 02:47 → M MSPAV 05-08 21:29 → M ED 21:29
DX: R55 Syncope and collapse (principal); E86.0 Dehydration; E11.65 Type 2 diabetes mellitus with hyperglycemia; Z91.14 Patient's other noncompliance with medication regimen; Z79.4 Long term (current) use of insulin; M25.571 Pain in right ankle and joints of right foot; Z79.899 Other long term (current) drug therapy; I25.2 Old myocardial infarction; E78.4 Other hyperlipidemia; D63.1 Anemia in chronic kidney disease; I12.9 Hypertensive chronic kidney disease with stage 1 through stage 4 chronic kidney disease, or unspecified chronic kidney disease; N18.9 Chronic kidney disease, unspecified
CPT/HCPCS: Q9967

== ENCOUNTER 2018-05-19 23:04 | Emergency (ER) | payer OTHER ==
[2018-05-19 23:50] LABS: VENOUS BASE EXCESS 0.8 (-2.0-2.0); VENOUS O2 SATURATION 97.7 % (60.0-80.0); VENOUS PARTIAL PRESSURE CO2 43.9 mmHg (38.0-50.0); VENOUS PARTIAL PRESSURE O2 101.8 mmHg (30.0-50.0); VENOUS PH 7.391 UNITS (7.330-7.430); VENOUS STANDARD HCO3 25.2 MEQ/L; VENOUS TOTAL CO2 27.4 MEQ/L (24.0-28.0)
[2018-05-20 00:05] LABS: OSMOLALITY SERUM 309 MOSM/KG (275-295)
[2018-05-20 00:08] LABS: KETONE, URINE AUTO RFX NEGATIVE (NEGATIVE); LEUKOCYTE ESTERASE UR AUTO RFX NEGATIVE (NEGATIVE); NITRITE, URINE AUTO RFX NEGATIVE (NEGATIVE); RBC, URINE AUTO RFX 5 /HPF (0-3); SPECIFIC GRAVITY UR AUTO RFX 1.028 (1.002-1.035); SQUAM EPITHELIAL CELL UR AURFX 0 /HPF (0-6); WBC, URINE AUTO RFX 2 /HPF (0-3)
[2018-05-20 00:11] LABS: LACTIC ACID SEPSIS PROTOCOL 1.9 MMOL/L (0.4-2.0)
[2018-05-20 00:20] LABS: ANION GAP 12 MEQ/L (8-16); BLOOD UREA NITROGEN 15 MG/DL (7-18); CALCIUM LEVEL 8.6 MG/DL (8.5-10.1); CARBON DIOXIDE LEVEL 25 MEQ/L (21-32); CHLORIDE LEVEL 97 MEQ/L (98-107); CK-MB VALUE MASS 1.9 NG/ML (<3.6); CPK CREATINE PHOSPHOKINASE 113 U/L (39-308); CREATININE FOR GFR 1.16 MG/DL (0.70-1.30); GLOMERULAR FILTRATION RATE > 60.0 (>56); MB/CK RELATIVE INDEX 1.68 (< OR =4); POTASSIUM SERUM 4.2 MEQ/L (3.5-5.1); SODIUM LEVEL 134 MEQ/L (136-145); TROPONIN I < 0.02 NG/ML (< 0.10)
[2018-05-20 00:24] LABS: GLUCOSE, FASTING 533 MG/DL (70-100)
[2018-05-20 00:27] LABS: BASO # 0.1 10^3/uL (0.0-0.2); BASO % 0.9 % (0.0-1.0); EOS # 0.2 10^3/uL (0.0-0.50); EOS % 3.4 % (0.0-3.0); HEMATOCRIT 34.1 % (42.0-52.0); HEMOGLOBIN 12.4 g/dl (13.5-17.5); IMMATURE GRANULOCYTE % 0.4 % (0-3.0); LYMPH # 3.3 10^3/uL (1.5-4.5); LYMPH % 47.6 % (24.0-44.0); MEAN CORPUSCULAR HEMOGLOBIN 29.1 pg (27.0-33.0); MEAN CORPUSCULAR HGB CONC 36.4 g/dl (32.0-36.5); MONO # 0.5 10^3/uL (0.0-0.8); MONO % 7.9 % (0.0-5.0); NEUTROPHILS # 2.7 10^3/uL (1.8-7.7); NEUTROPHILS % 39.8 % (36.0-66.0); PLATELET COUNT, AUTOMATED 205 10^3/uL (150-450); RED BLOOD COUNT 4.26 10^6/uL (4.30-6.10); RED CELL DISTRIBUTION WIDTH 11.7 % (11.5-14.5); WHITE BLOOD COUNT 6.8 10^3/uL (4.0-10.0)
[2018-05-20] MEDS: HumuLIN R (REGULAR) INSULIN (NovoLIN R) **100U/ML** PER UNIT IV (01:58)
[2018-05-20] MEDS: KETOROLAC 30 MG/ML VIAL (J1885) IV (01:59)
[2018-05-20 02:01] LABS: CK-MB VALUE MASS 1.8 NG/ML (<3.6); CPK CREATINE PHOSPHOKINASE 116 U/L (39-308); MB/CK RELATIVE INDEX 1.55 (< OR =4); TROPONIN I < 0.02 NG/ML (< 0.10)
[2018-05-20 03:25] LABS: BEDSIDE GLUCOSE 204 MG/DL (70-105)
[2018-05-20 06:11] LABS: VENOUS BASE EXCESS 0.7 (-2.0-2.0); VENOUS HCO3 26.6 MEQ/L (23.0-27.0); VENOUS PARTIAL PRESSURE CO2 47.4 mmHg (38.0-50.0); VENOUS PH 7.367 UNITS (7.330-7.430); VENOUS STANDARD HCO3 25.2 MEQ/L; VENOUS TOTAL CO2 28.1 MEQ/L (24.0-28.0)
== END 2018-05-20 07:19 | disposition home or self-care (01) ==
LOC: M ED 23:04
DX: E10.65 Type 1 diabetes mellitus with hyperglycemia (principal); R07.89 Other chest pain; I25.10 Atherosclerotic heart disease of native coronary artery without angina pectoris; Z87.891 Personal history of nicotine dependence; Z91.010 Allergy to peanuts; Z91.018 Allergy to other foods; J30.2 Other seasonal allergic rhinitis; Z79.899 Other long term (current) drug therapy; Z79.82 Long term (current) use of aspirin
CPT/HCPCS: J1885

== ENCOUNTER 2018-05-27 21:41 | Emergency (ER) | payer OTHER ==
[2018-05-27 22:51] LABS: BEDSIDE GLUCOSE 452 MG/DL (70-105)
[2018-05-27] MEDS: HumuLIN R (REGULAR) INSULIN (NovoLIN R) **100U/ML** PER UNIT SC (23:29)
[2018-05-27 23:32] LABS: BASO # 0.1 10^3/uL (0.0-0.2); BASO % 0.8 % (0.0-1.0); EOS # 0.3 10^3/uL (0.0-0.50); EOS % 3.3 % (0.0-3.0); HEMATOCRIT 35.7 % (42.0-52.0); HEMOGLOBIN 12.6 g/dl (13.5-17.5); IMMATURE GRANULOCYTE % 0.1 % (0-3.0); LYMPH # 3.7 10^3/uL (1.5-4.5); MEAN CORPUSCULAR HEMOGLOBIN 28.6 pg (27.0-33.0); MEAN CORPUSCULAR HGB CONC 35.3 g/dl (32.0-36.5); MEAN CORPUSCULAR VOLUME 81.1 fl (80.0-96.0); MONO # 0.6 10^3/uL (0.0-0.8); MONO % 7.9 % (0.0-5.0); NEUTROPHILS % 39.9 % (36.0-66.0); PLATELET COUNT, AUTOMATED 205 10^3/uL (150-450); RED CELL DISTRIBUTION WIDTH 11.5 % (11.5-14.5); VENOUS BASE EXCESS -0.8 (-2.0-2.0); VENOUS HCO3 24.2 MEQ/L (23.0-27.0); VENOUS PARTIAL PRESSURE CO2 41.4 mmHg (38.0-50.0); VENOUS PARTIAL PRESSURE O2 90.2 mmHg (30.0-50.0); VENOUS PH 7.385 UNITS (7.330-7.430); VENOUS STANDARD HCO3 23.8 MEQ/L; VENOUS TOTAL CO2 25.5 MEQ/L (24.0-28.0); WHITE BLOOD COUNT 7.6 10^3/uL (4.0-10.0)
[2018-05-28 00:13] LABS: ALBUMIN 3.1 GM/DL (3.2-5.2); ALBUMIN/GLOBULIN RATIO 0.78 (1.00-1.93); ALKALINE PHOSPHATASE 93 U/L (45-117); ALT/SGPT 20 U/L (12-78); ANION GAP 5 MEQ/L (8-16); AST/SGOT 9 U/L (7-37); BILIRUBIN,DIRECT < 0.1 MG/DL (0.0-0.2); BILIRUBIN,TOTAL 0.2 MG/DL (0.2-1.0); BLOOD UREA NITROGEN 13 MG/DL (7-18); CALCIUM LEVEL 8.8 MG/DL (8.5-10.1); CARBON DIOXIDE LEVEL 30 MEQ/L (21-32); CHLORIDE LEVEL 102 MEQ/L (98-107); CREATININE FOR GFR 1.11 MG/DL (0.70-1.30); GLOMERULAR FILTRATION RATE > 60.0 (>56); LIPASE 821 U/L (73-393); POTASSIUM SERUM 4.1 MEQ/L (3.5-5.1); SODIUM LEVEL 137 MEQ/L (136-145); TOTAL PROTEIN 7.1 GM/DL (6.4-8.2)
[2018-05-28 00:14] LABS: GLUCOSE, FASTING 462 MG/DL (70-100)
== END 2018-05-28 01:00 | disposition home or self-care (01) ==
LOC: M ED 05-28 01:00
DX: E11.65 Type 2 diabetes mellitus with hyperglycemia (principal); Z91.14 Patient's other noncompliance with medication regimen; R10.84 Generalized abdominal pain; I25.10 Atherosclerotic heart disease of native coronary artery without angina pectoris; I25.2 Old myocardial infarction; N18.3 Chronic kidney disease, stage 3 (moderate); I10 Essential (primary) hypertension; Z72.0 Tobacco use; Z79.82 Long term (current) use of aspirin; Z79.84 Long term (current) use of oral hypoglycemic drugs; Z79.899 Other long term (current) drug therapy; J30.2 Other seasonal allergic rhinitis; Z91.018 Allergy to other foods; Z91.010 Allergy to peanuts
CPT/HCPCS: 83690

== ENCOUNTER 2018-07-08 10:52 | Emergency (ER) | payer OTHER ==
[2018-07-08 11:27] LABS: BASO # 0.1 10^3/uL (0.0-0.2); BASO % 0.9 % (0.0-1.0); EOS # 0.2 10^3/uL (0.0-0.50); HEMOGLOBIN 12.8 g/dl (13.5-17.5); IMMATURE GRANULOCYTE % 0.4 % (0-3.0); LYMPH # 2.8 10^3/uL (1.5-4.5); LYMPH % 37.6 % (24.0-44.0); MEAN CORPUSCULAR HGB CONC 35.6 g/dl (32.0-36.5); MEAN CORPUSCULAR VOLUME 81.6 fl (80.0-96.0); MONO # 0.5 10^3/uL (0.0-0.8); MONO % 6.4 % (0.0-5.0); NEUTROPHILS # 3.9 10^3/uL (1.8-7.7); NEUTROPHILS % 52.7 % (36.0-66.0); PLATELET COUNT, AUTOMATED 206 10^3/uL (150-450); RED BLOOD COUNT 4.41 10^6/uL (4.30-6.10); RED CELL DISTRIBUTION WIDTH 11.4 % (11.5-14.5); WHITE BLOOD COUNT 7.5 10^3/uL (4.0-10.0)
[2018-07-08 11:35] LABS: INR 0.98; PROTHROMBIN TIME 13.1 SECONDS (12.1-14.4)
[2018-07-08 11:36] LABS: PARTIAL THROMBOPLASTIN TIME 24.3 SECONDS (25.4-37.6)
[2018-07-08 11:49] LABS: ALBUMIN 3.5 GM/DL (3.2-5.2); ALKALINE PHOSPHATASE 78 U/L (45-117); ALT/SGPT 20 U/L (12-78); ANION GAP 11 MEQ/L (8-16); AST/SGOT 13 U/L (7-37); BILIRUBIN,DIRECT < 0.1 MG/DL (0.0-0.2); BILIRUBIN,TOTAL 0.2 MG/DL (0.2-1.0); BLOOD UREA NITROGEN 12 MG/DL (7-18); CARBON DIOXIDE LEVEL 25 MEQ/L (21-32); CHLORIDE LEVEL 99 MEQ/L (98-107); CPK CREATINE PHOSPHOKINASE 179 U/L (39-308); CREATININE FOR GFR 1.17 MG/DL (0.70-1.30); GLOMERULAR FILTRATION RATE > 60.0 (>56); LIPASE 398 U/L (73-393); POTASSIUM SERUM 4.4 MEQ/L (3.5-5.1); SODIUM LEVEL 135 MEQ/L (136-145); TOTAL PROTEIN 7.4 GM/DL (6.4-8.2); TROPONIN I < 0.02 NG/ML (< 0.10)
[2018-07-08 11:55] LABS: CK-MB VALUE MASS 3.6 NG/ML (<3.6); FREE T4 1.33 NG/DL (0.76-1.46); MB/CK RELATIVE INDEX 2.01 (< OR =4); THYROID STIMULATING HORMONE 0.614 uIU/ML (0.358-3.740)
[2018-07-08 12:03] LABS: GLUCOSE, FASTING 467 MG/DL (70-100)
[2018-07-08] MEDS: NS 1,000 ML IV (12:34)
[2018-07-08] MEDS: HumuLIN R (REGULAR) INSULIN (NovoLIN R) **100U/ML** PER UNIT IV ×2 (12:34→13:55)
[2018-07-08 12:47] LABS: VENOUS BASE EXCESS -0.3 (-2.0-2.0); VENOUS HCO3 25.3 MEQ/L (23.0-27.0); VENOUS O2 SATURATION 86.8 % (60.0-80.0); VENOUS PARTIAL PRESSURE CO2 44.9 mmHg (38.0-50.0); VENOUS PARTIAL PRESSURE O2 55.1 mmHg (30.0-50.0); VENOUS PH 7.369 UNITS (7.330-7.430); VENOUS TOTAL CO2 26.7 MEQ/L (24.0-28.0)
[2018-07-08 13:18] LABS: BEDSIDE GLUCOSE 333 MG/DL (70-105)
[2018-07-08 14:46] LABS: BEDSIDE GLUCOSE 216 MG/DL (70-105)
== END 2018-07-08 15:39 | disposition home or self-care (01) ==
LOC: M ED 10:52
DX: E11.65 Type 2 diabetes mellitus with hyperglycemia (principal); I10 Essential (primary) hypertension; G62.9 Polyneuropathy, unspecified; Z86.73 Personal history of transient ischemic attack (TIA), and cerebral infarction without residual deficits; Z79.899 Other long term (current) drug therapy; Z79.82 Long term (current) use of aspirin; Z79.84 Long term (current) use of oral hypoglycemic drugs; J30.2 Other seasonal allergic rhinitis; Z91.010 Allergy to peanuts; Z91.018 Allergy to other foods; Z91.048 Other nonmedicinal substance allergy status
CPT/HCPCS: 71046

== ENCOUNTER 2018-07-14 21:27 | Emergency (ER) | payer OTHER ==
[2018-07-15] MEDS: NORCO 5/325MG TABLET (BULK FOR ED) PO (01:34)
== END 2018-07-15 01:40 | disposition home or self-care (01) ==
LOC: M ED 21:27
DX: S63.501A Unspecified sprain of right wrist, initial encounter (principal); W22.8XXA Striking against or struck by other objects, initial encounter; Y92.019 Unspecified place in single-family (private) house as the place of occurrence of the external cause
CPT/HCPCS: 73130

== ENCOUNTER 2018-07-16 20:16 | Inpatient (IN) | payer OTHER ==
[2018-07-16] MEDS: ONDANSETRON 4MG/2ML VIAL (J2405) IV (21:27)
[2018-07-16] MEDS: NS 1,000 ML IV (21:28)
[2018-07-16] MEDS: GASTROGRAFIN SOLUTION 30ML PO ×2 (21:45→22:15)
[2018-07-16 21:49] LABS: BASO # 0.1 10^3/uL (0.0-0.2); BASO % 0.6 % (0.0-1.0); EOS # 0.3 10^3/uL (0.0-0.50); HEMATOCRIT 35.9 % (42.0-52.0); HEMOGLOBIN 12.6 g/dl (13.5-17.5); IMMATURE GRANULOCYTE % 0.2 % (0-3.0); LYMPH # 2.9 10^3/uL (1.5-4.5); LYMPH % 34.5 % (24.0-44.0); MEAN CORPUSCULAR HEMOGLOBIN 28.4 pg (27.0-33.0); MEAN CORPUSCULAR HGB CONC 35.1 g/dl (32.0-36.5); MONO # 0.6 10^3/uL (0.0-0.8); MONO % 7.6 % (0.0-5.0); NEUTROPHILS # 4.5 10^3/uL (1.8-7.7); NEUTROPHILS % 54.1 % (36.0-66.0); PLATELET COUNT, AUTOMATED 212 10^3/uL (150-450); RED BLOOD COUNT 4.43 10^6/uL (4.30-6.10); RED CELL DISTRIBUTION WIDTH 11.4 % (11.5-14.5); WHITE BLOOD COUNT 8.3 10^3/uL (4.0-10.0)
[2018-07-16 22:19] LABS: ALBUMIN 3.4 GM/DL (3.2-5.2); ALBUMIN/GLOBULIN RATIO 0.87 (1.00-1.93); ALKALINE PHOSPHATASE 75 U/L (45-117); ALT/SGPT 20 U/L (12-78); ANION GAP 9 MEQ/L (8-16); AST/SGOT 13 U/L (7-37); BILIRUBIN,DIRECT < 0.1 MG/DL (0.0-0.2); BILIRUBIN,TOTAL 0.3 MG/DL (0.2-1.0); BLOOD UREA NITROGEN 11 MG/DL (7-18); CALCIUM LEVEL 8.7 MG/DL (8.5-10.1); CARBON DIOXIDE LEVEL 25 MEQ/L (21-32); CHLORIDE LEVEL 103 MEQ/L (98-107); CREATININE FOR GFR 0.98 MG/DL (0.70-1.30); GLOMERULAR FILTRATION RATE > 60.0 (>56); GLUCOSE, FASTING 408 MG/DL (70-100); LIPASE 875 U/L (73-393); POTASSIUM SERUM 3.7 MEQ/L (3.5-5.1); SODIUM LEVEL 137 MEQ/L (136-145); TOTAL PROTEIN 7.3 GM/DL (6.4-8.2)
[2018-07-16] MEDS ORDERED: ISOVUE-370 76% 100ML VIAL (Q9967) As Ordered (23:23)
[2018-07-17 02:59] LABS: BEDSIDE GLUCOSE 302 MG/DL (70-105)
[2018-07-17] MEDS ORDERED: DEXTROSE 50% 50 ML SYRINGE IV (03:00)
[2018-07-17] MEDS ORDERED: GLUCAGON FOR INJ 1 MG VIAL (J1610) SC (03:00)
[2018-07-17] MEDS ORDERED: MORPHINE 4 MG/ML 1ML VIAL/SYRINGE (J2270) IV (03:00)
[2018-07-17] MEDS ORDERED: ALBUTEROL SULFATE 2.5 MG/0.5 ML INH NEB SOLN NEB (03:00)
[2018-07-17] MEDS ORDERED: GLUCOSE 4 GM CHEW TABLET PO (03:00)
[2018-07-17 03:22] LABS: CHOLESTEROL LEVEL 155 MG/DL (<200); CHOLESTEROL RISK RATIO 4.078 (<5); HDL CHOLESTEROL 38 MG/DL (>40); LDL CHOLESTEROL 63 MG/DL (<100); NON-HDL-C 117 MG/DL; TRIGLYCERIDES LEVEL 268 MG/DL (<150)
[2018-07-17] MEDS: NS 1,000 ML IV ×4 (03:32→22:44)
[2018-07-17 06:26] LABS: BEDSIDE GLUCOSE 265 MG/DL (70-105)
[2018-07-17] MEDS: LEVEMIR (INSULIN DETEMIR) 1 UNITS/0.01ML SC (08:39)
[2018-07-17] MEDS: HumaLOG INSULIN (NovoLOG) PER UNIT SC ×3 (08:39→18:09)
[2018-07-17] MEDS: ONDANSETRON 4MG/2ML VIAL (J2405) IV (08:39)
[2018-07-17] MEDS: ENOXAPARIN 40 MG/0.4 ML SYRINGE (J1650) SC (08:40)
[2018-07-17] MEDS: hydroCHLOROthiazide 12.5 MG CAPSULE PO (08:40)
[2018-07-17] MEDS: GABAPENTIN 400 MG CAP PO ×2 (08:40→21:02)
[2018-07-17] MEDS: METOPROLOL SUCC *XL* 25MG TAB (TopROL *XL*) PO (08:40)
[2018-07-17] MEDS: LISINOPRIL 40 MG TAB PO (08:40)
[2018-07-17] MEDS: OMEPRAZOLE 20 MG CAP PO (08:40)
[2018-07-17] MEDS: RANOLAZINE 500 MG ER TAB PO (08:41)
[2018-07-17 10:28] LABS: BASO % 0.6 % (0.0-1.0); EOS # 0.2 10^3/uL (0.0-0.50); EOS % 3.1 % (0.0-3.0); HEMATOCRIT 34.2 % (42.0-52.0); HEMOGLOBIN 12.1 g/dl (13.5-17.5); IMMATURE GRANULOCYTE % 0.1 % (0-3.0); LYMPH # 3.2 10^3/uL (1.5-4.5); MEAN CORPUSCULAR HEMOGLOBIN 29.2 pg (27.0-33.0); MEAN CORPUSCULAR HGB CONC 35.4 g/dl (32.0-36.5); MEAN CORPUSCULAR VOLUME 82.4 fl (80.0-96.0); MONO # 0.4 10^3/uL (0.0-0.8); MONO % 6.2 % (0.0-5.0); NEUTROPHILS # 2.9 10^3/uL (1.8-7.7); PLATELET COUNT, AUTOMATED 188 10^3/uL (150-450); RED BLOOD COUNT 4.15 10^6/uL (4.30-6.10); RED CELL DISTRIBUTION WIDTH 11.5 % (11.5-14.5); WHITE BLOOD COUNT 6.8 10^3/uL (4.0-10.0)
[2018-07-17 11:09] LABS: ALBUMIN 2.9 GM/DL (3.2-5.2); ALBUMIN/GLOBULIN RATIO 0.78 (1.00-1.93); ALKALINE PHOSPHATASE 48 U/L (45-117); ALT/SGPT 16 U/L (12-78); ANION GAP 10 MEQ/L (8-16); AST/SGOT 10 U/L (7-37); BILIRUBIN,TOTAL 0.4 MG/DL (0.2-1.0); BLOOD UREA NITROGEN 7 MG/DL (7-18); CALCIUM LEVEL 8.2 MG/DL (8.5-10.1); CARBON DIOXIDE LEVEL 25 MEQ/L (21-32); CHLORIDE LEVEL 107 MEQ/L (98-107); CREATININE FOR GFR 0.95 MG/DL (0.70-1.30); GLOMERULAR FILTRATION RATE > 60.0 (>56); GLUCOSE, FASTING 279 MG/DL (70-100); LIPASE 700 U/L (73-393); MAGNESIUM LEVEL 1.9 MG/DL (1.8-2.4); POTASSIUM SERUM 3.5 MEQ/L (3.5-5.1); SODIUM LEVEL 142 MEQ/L (136-145); TOTAL PROTEIN 6.6 GM/DL (6.4-8.2)
[2018-07-17 15:48] LABS: APPEARANCE, URINE CLEAR (CLEAR); BACTERIA, URINE AUTO NEGATIVE (NEGATIVE); BILIRUBIN, URINE AUTO NEGATIVE (NEGATIVE); BLOOD, URINE BLOOD NEGATIVE (NEGATIVE); COLOR, URINE YELLOW (YELLOW); GLUCOSE, URINE (UA) AUTO 3+ mg/dL (NEGATIVE); KETONE, URINE AUTO TRACE mg/dL (NEGATIVE); LEUKOCYTE ESTERASE, URINE AUTO NEGATIVE (NEGATIVE); NITRITE, URINE AUTO POSITIVE (NEGATIVE); PROTEIN, URINE AUTO NEGATIVE (NEGATIVE); RBC, URINE AUTO 1 /HPF (0-3); SPECIFIC GRAVITY URINE AUTO 1.023 (1.002-1.035); SQUAMOUS EPITHELIAL CELL UR AU 0 /HPF (0-6); UROBILINOGEN, URINE AUTO 0.2 mg/dL (0.0-2.0); WBC, URINE AUTO 3 /HPF (0-3)
[2018-07-17 17:10] LABS: BEDSIDE GLUCOSE 102 MG/DL (70-105)
[2018-07-17] MEDS: ASPIRIN 81 MG ENTERIC TAB PO (21:02)
[2018-07-17] MEDS: NORTRIPTYLINE 25 MG CAP PO (21:02)
[2018-07-17] MEDS: FENOFIBRATE 145 MG TAB (TRICOR) PO (21:02)
[2018-07-17] MEDS: ATORVASTATIN 20 MG TAB PO (21:03)
[2018-07-17 21:06] LABS: BEDSIDE GLUCOSE 183 MG/DL (70-105)
[2018-07-18 00:37] LABS: BEDSIDE GLUCOSE 207 MG/DL (70-105)
[2018-07-18] MEDS: NS 1,000 ML IV (05:24)
[2018-07-18 06:14] LABS: BEDSIDE GLUCOSE 296 MG/DL (70-105)
[2018-07-18 07:38] LABS: HEMATOCRIT 32.6 % (42.0-52.0); HEMOGLOBIN 11.4 g/dl (13.5-17.5); MEAN CORPUSCULAR HEMOGLOBIN 28.7 pg (27.0-33.0); MEAN CORPUSCULAR VOLUME 82.1 fl (80.0-96.0); PLATELET COUNT, AUTOMATED 167 10^3/uL (150-450); RED BLOOD COUNT 3.97 10^6/uL (4.30-6.10); RED CELL DISTRIBUTION WIDTH 11.4 % (11.5-14.5); WHITE BLOOD COUNT 5.9 10^3/uL (4.0-10.0)
[2018-07-18 08:34] LABS: ANION GAP 7 MEQ/L (8-16); BLOOD UREA NITROGEN 6 MG/DL (7-18); CARBON DIOXIDE LEVEL 23 MEQ/L (21-32); CHLORIDE LEVEL 110 MEQ/L (98-107); CREATININE FOR GFR 1.08 MG/DL (0.70-1.30); GLOMERULAR FILTRATION RATE > 60.0 (>56); GLUCOSE, FASTING 307 MG/DL (70-100); POTASSIUM SERUM 3.6 MEQ/L (3.5-5.1); SODIUM LEVEL 140 MEQ/L (136-145)
[2018-07-18] MEDS: GABAPENTIN 400 MG CAP PO ×2 (10:08→21:43)
[2018-07-18] MEDS: METOPROLOL SUCC *XL* 25MG TAB (TopROL *XL*) PO (10:08)
[2018-07-18] MEDS: ENOXAPARIN 40 MG/0.4 ML SYRINGE (J1650) SC (10:08)
[2018-07-18] MEDS: OMEPRAZOLE 20 MG CAP PO (10:08)
[2018-07-18] MEDS: RANOLAZINE 500 MG ER TAB PO (10:08)
[2018-07-18] MEDS: hydroCHLOROthiazide 12.5 MG CAPSULE PO (10:09)
[2018-07-18] MEDS: LISINOPRIL 40 MG TAB PO (10:09)
[2018-07-18] MEDS: LEVEMIR (INSULIN DETEMIR) 1 UNITS/0.01ML SC (10:09)
[2018-07-18] MEDS: HumaLOG INSULIN (NovoLOG) PER UNIT SC ×4 (10:10→21:44)
[2018-07-18] MEDS: INFLUENZA QUADRIVALENT PF VACCINE 0.5ML SYRINGE (90686) IM (10:11)
[2018-07-18 11:34] LABS: BEDSIDE GLUCOSE 281 MG/DL (70-105)
[2018-07-18 12:42] LABS: BEDSIDE GLUCOSE 385 MG/DL (70-105)
[2018-07-18 17:12] LABS: BEDSIDE GLUCOSE 335 MG/DL (70-105)
[2018-07-18 19:42] LABS: BEDSIDE GLUCOSE 400 MG/DL (70-105)
[2018-07-18] MEDS: FENOFIBRATE 145 MG TAB (TRICOR) PO (21:42)
[2018-07-18] MEDS: ATORVASTATIN 20 MG TAB PO (21:43)
[2018-07-18] MEDS: NORTRIPTYLINE 25 MG CAP PO (21:43)
[2018-07-18] MEDS: ASPIRIN 81 MG ENTERIC TAB PO (21:43)
[2018-07-19 05:41] LABS: BEDSIDE GLUCOSE 291 MG/DL (70-105)
[2018-07-19 07:11] LABS: HEMATOCRIT 32.3 % (42.0-52.0); HEMOGLOBIN 11.5 g/dl (13.5-17.5); MEAN CORPUSCULAR HEMOGLOBIN 28.8 pg (27.0-33.0); MEAN CORPUSCULAR HGB CONC 35.6 g/dl (32.0-36.5); PLATELET COUNT, AUTOMATED 172 10^3/uL (150-450); RED BLOOD COUNT 3.99 10^6/uL (4.30-6.10); RED CELL DISTRIBUTION WIDTH 11.3 % (11.5-14.5); WHITE BLOOD COUNT 7.3 10^3/uL (4.0-10.0)
[2018-07-19 07:29] LABS: ANION GAP 9 MEQ/L (8-16); BLOOD UREA NITROGEN 7 MG/DL (7-18); CALCIUM LEVEL 8.3 MG/DL (8.5-10.1); CARBON DIOXIDE LEVEL 25 MEQ/L (21-32); CHLORIDE LEVEL 105 MEQ/L (98-107); CREATININE FOR GFR 0.93 MG/DL (0.70-1.30); GLOMERULAR FILTRATION RATE > 60.0 (>56); GLUCOSE, FASTING 292 MG/DL (70-100); POTASSIUM SERUM 3.3 MEQ/L (3.5-5.1); SODIUM LEVEL 139 MEQ/L (136-145)
[2018-07-19] MEDS: LEVEMIR (INSULIN DETEMIR) 1 UNITS/0.01ML SC (08:49)
[2018-07-19] MEDS: LISINOPRIL 40 MG TAB PO (08:50)
[2018-07-19] MEDS: HumaLOG INSULIN (NovoLOG) PER UNIT SC ×2 (08:50→12:00)
[2018-07-19] MEDS: GABAPENTIN 400 MG CAP PO (08:50)
[2018-07-19] MEDS: hydroCHLOROthiazide 12.5 MG CAPSULE PO (08:50)
[2018-07-19] MEDS: OMEPRAZOLE 20 MG CAP PO (08:50)
[2018-07-19] MEDS: ENOXAPARIN 40 MG/0.4 ML SYRINGE (J1650) SC (08:50)
[2018-07-19] MEDS: RANOLAZINE 500 MG ER TAB PO (08:50)
[2018-07-19] MEDS: METOPROLOL SUCC *XL* 25MG TAB (TopROL *XL*) PO (08:51)
[2018-07-19 11:23] LABS: BEDSIDE GLUCOSE 326 MG/DL (70-105)
[2018-07-21 12:47] LABS: BEDSIDE GLUCOSE 445 MG/DL (70-105)
== END 2018-07-19 16:55 | disposition home or self-care (01) | DRG 282 ==
LOC: M ED INP 07-17 02:44 → M ED 20:16 → M MS4PR 07-17 03:11
PROVIDERS: Internal Medicine
DX: K85.00 Idiopathic acute pancreatitis without necrosis or infection (principal); E11.40 Type 2 diabetes mellitus with diabetic neuropathy, unspecified; E11.65 Type 2 diabetes mellitus with hyperglycemia; J45.909 Unspecified asthma, uncomplicated; I25.10 Atherosclerotic heart disease of native coronary artery without angina pectoris; E78.5 Hyperlipidemia, unspecified; I10 Essential (primary) hypertension; J30.2 Other seasonal allergic rhinitis; K21.9 Gastro-esophageal reflux disease without esophagitis; Z91.19 Patient's noncompliance with other medical treatment and regimen; Z90.49 Acquired absence of other specified parts of digestive tract; Z79.4 Long term (current) use of insulin; Z79.891 Long term (current) use of opiate analgesic; Z79.899 Other long term (current) drug therapy; Z91.018 Allergy to other foods

== ENCOUNTER 2018-08-11 22:26 | Emergency (ER) | payer OTHER ==
[2018-08-12] MEDS: NORCO, ANEXSIA 5/325MG TABLET (HYDROcodone/ACETAMINOPHEN) PO (01:26)
[2018-08-12] MEDS: ONDANSETRON 4 MG ORAL DISINTEGRATING TAB (Q0162 PER 1MG) PO (01:28)
== END 2018-08-12 02:11 | disposition home or self-care (01) ==
LOC: M ED 08-12 02:11
DX: M25.551 Pain in right hip (principal); M79.604 Pain in right leg; W01.0XXA Fall on same level from slipping, tripping and stumbling without subsequent striking against object, initial encounter; Y92.410 Unspecified street and highway as the place of occurrence of the external cause; E11.40 Type 2 diabetes mellitus with diabetic neuropathy, unspecified; I25.2 Old myocardial infarction; J45.909 Unspecified asthma, uncomplicated; R53.1 Weakness; Z79.899 Other long term (current) drug therapy; Z79.82 Long term (current) use of aspirin; Z79.4 Long term (current) use of insulin
CPT/HCPCS: Q0162

== ENCOUNTER 2018-08-17 19:40 | Emergency (ER) | payer OTHER ==
[2018-08-17 20:19] LABS: VENOUS BASE EXCESS -3.3 (-2.0-2.0); VENOUS O2 SATURATION 87.1 % (60.0-80.0); VENOUS PARTIAL PRESSURE CO2 46.1 mmHg (38.0-50.0); VENOUS PARTIAL PRESSURE O2 53.6 mmHg (30.0-50.0); VENOUS PH 7.316 UNITS (7.330-7.430); VENOUS STANDARD HCO3 21.5 MEQ/L; VENOUS TOTAL CO2 24.4 MEQ/L (24.0-28.0)
[2018-08-17 20:23] LABS: BASO # 0.1 10^3/uL (0.0-0.2); BASO % 0.5 % (0.0-1.0); EOS # 0.2 10^3/uL (0.0-0.50); EOS % 2.3 % (0.0-3.0); HEMATOCRIT 36.2 % (42.0-52.0); HEMOGLOBIN 12.9 g/dl (13.5-17.5); IMMATURE GRANULOCYTE % 0.4 % (0-3.0); LYMPH # 3.5 10^3/uL (1.5-4.5); LYMPH % 36.1 % (24.0-44.0); MEAN CORPUSCULAR HEMOGLOBIN 28.7 pg (27.0-33.0); MEAN CORPUSCULAR HGB CONC 35.6 g/dl (32.0-36.5); MEAN CORPUSCULAR VOLUME 80.6 fl (80.0-96.0); MONO # 0.6 10^3/uL (0.0-0.8); MONO % 6.3 % (0.0-5.0); NEUTROPHILS # 5.2 10^3/uL (1.8-7.7); NEUTROPHILS % 54.4 % (36.0-66.0); PLATELET COUNT, AUTOMATED 211 10^3/uL (150-450); RED BLOOD COUNT 4.49 10^6/uL (4.30-6.10); RED CELL DISTRIBUTION WIDTH 11.3 % (11.5-14.5); WHITE BLOOD COUNT 9.6 10^3/uL (4.0-10.0)
[2018-08-17 20:37] LABS: OSMOLALITY SERUM 305 MOSM/KG (275-295)
[2018-08-17] MEDS: MORPHINE 4 MG/ML 1ML VIAL/SYRINGE (J2270) IV (20:37)
[2018-08-17] MEDS: ONDANSETRON 4MG/2ML VIAL (J2405) IV (20:37)
[2018-08-17] MEDS: ASPIRIN 81 MG CHEW TABLET PO (21:00)
[2018-08-17 21:05] LABS: ACETONE/KETONE 1.57 MG/DL (<2.81); ALBUMIN 2.9 GM/DL (3.2-5.2); ALBUMIN/GLOBULIN RATIO 0.69 (1.00-1.93); ALKALINE PHOSPHATASE 71 U/L (45-117); ALT/SGPT 20 U/L (12-78); ANION GAP 9 MEQ/L (8-16); AST/SGOT 13 U/L (7-37); BILIRUBIN,DIRECT < 0.1 MG/DL (0.0-0.2); BILIRUBIN,TOTAL 0.3 MG/DL (0.2-1.0); BLOOD UREA NITROGEN 16 MG/DL (7-18); CALCIUM LEVEL 8.2 MG/DL (8.5-10.1); CARBON DIOXIDE LEVEL 25 MEQ/L (21-32); CHLORIDE LEVEL 100 MEQ/L (98-107); CPK CREATINE PHOSPHOKINASE 87 U/L (39-308); CREATININE FOR GFR 1.04 MG/DL (0.70-1.30); GLOMERULAR FILTRATION RATE > 60.0 (>56); GLUCOSE, FASTING 417 MG/DL (70-100); LIPASE 635 U/L (73-393); POTASSIUM SERUM 4.2 MEQ/L (3.5-5.1); SODIUM LEVEL 134 MEQ/L (136-145); TOTAL PROTEIN 7.1 GM/DL (6.4-8.2); TROPONIN I < 0.02 NG/ML (< 0.10)
[2018-08-17] MEDS: HumuLIN R (REGULAR) INSULIN (NovoLIN R) **100U/ML** PER UNIT IV (21:06)
[2018-08-17 21:10] LABS: ESTIMATED AVERAGE GLUCOSE 355 MG/DL (60-110)
[2018-08-17 23:34] LABS: BEDSIDE GLUCOSE 311 MG/DL (70-105)
[2018-08-17] MEDS: LEVEMIR (INSULIN DETEMIR) 1 UNITS/0.01ML SC (23:45)
[2018-08-19 09:27] LABS: BEDSIDE GLUCOSE 430 MG/DL (70-105)
== END 2018-08-17 23:59 | disposition home or self-care (01) ==
LOC: M ED 23:59
DX: E11.65 Type 2 diabetes mellitus with hyperglycemia (principal); Z91.19 Patient's noncompliance with other medical treatment and regimen; I25.10 Atherosclerotic heart disease of native coronary artery without angina pectoris; J45.909 Unspecified asthma, uncomplicated; J30.2 Other seasonal allergic rhinitis; Z82.49 Family history of ischemic heart disease and other diseases of the circulatory system; Z79.82 Long term (current) use of aspirin; Z79.84 Long term (current) use of oral hypoglycemic drugs; Z79.899 Other long term (current) drug therapy; Z91.018 Allergy to other foods; Z91.010 Allergy to peanuts
CPT/HCPCS: J2270

== ENCOUNTER 2018-10-07 16:13 | Emergency (ER) | payer OTHER ==
[2018-10-07 17:14] LABS: VENOUS BASE EXCESS -1.3 (-2.0-2.0); VENOUS HCO3 25.6 MEQ/L (23.0-27.0); VENOUS O2 SATURATION 79.5 % (60.0-80.0); VENOUS PARTIAL PRESSURE O2 45.4 mmHg (30.0-50.0); VENOUS PH 7.318 UNITS (7.330-7.430); VENOUS TOTAL CO2 27.1 MEQ/L (24.0-28.0)
[2018-10-07] MEDS: NS 1,000 ML IV ×2 (17:14→18:55)
[2018-10-07 17:17] LABS: BASO # 0.1 10^3/uL (0.0-0.2); BASO % 0.5 % (0.0-1.0); EOS # 0.2 10^3/uL (0.0-0.50); EOS % 1.4 % (0.0-3.0); HEMATOCRIT 37.9 % (42.0-52.0); HEMOGLOBIN 13.3 g/dl (13.5-17.5); IMMATURE GRANULOCYTE % 0.3 % (0-3.0); LYMPH # 3.3 10^3/uL (1.5-4.5); MEAN CORPUSCULAR HEMOGLOBIN 28.5 pg (27.0-33.0); MEAN CORPUSCULAR HGB CONC 35.1 g/dl (32.0-36.5); MEAN CORPUSCULAR VOLUME 81.3 fl (80.0-96.0); MONO # 0.9 10^3/uL (0.0-0.8); MONO % 7.2 % (0.0-5.0); NEUTROPHILS # 7.4 10^3/uL (1.8-7.7); NEUTROPHILS % 62.6 % (36.0-66.0); PLATELET COUNT, AUTOMATED 210 10^3/uL (150-450); RED BLOOD COUNT 4.66 10^6/uL (4.30-6.10); RED CELL DISTRIBUTION WIDTH 11.5 % (11.5-14.5); WHITE BLOOD COUNT 11.9 10^3/uL (4.0-10.0)
[2018-10-07 17:34] LABS: ALBUMIN 3.3 GM/DL (3.2-5.2); ALBUMIN/GLOBULIN RATIO 0.77 (1.00-1.93); ALKALINE PHOSPHATASE 87 U/L (45-117); ALT/SGPT 22 U/L (12-78); ANION GAP 8 MEQ/L (8-16); AST/SGOT 11 U/L (7-37); BILIRUBIN,DIRECT < 0.1 MG/DL (0.0-0.2); BILIRUBIN,TOTAL 0.3 MG/DL (0.2-1.0); BLOOD UREA NITROGEN 14 MG/DL (7-18); CALCIUM LEVEL 8.7 MG/DL (8.5-10.1); CARBON DIOXIDE LEVEL 26 MEQ/L (21-32); CHLORIDE LEVEL 98 MEQ/L (98-107); CPK CREATINE PHOSPHOKINASE 127 U/L (39-308); GLOMERULAR FILTRATION RATE > 60.0 (>56); GLUCOSE, FASTING 415 MG/DL (70-100); LIPASE 820 U/L (73-393); MB/CK RELATIVE INDEX 1.89 (< OR =4); POTASSIUM SERUM 4.3 MEQ/L (3.5-5.1); SODIUM LEVEL 132 MEQ/L (136-145); TOTAL PROTEIN 7.6 GM/DL (6.4-8.2); TROPONIN I < 0.02 NG/ML (< 0.10)
[2018-10-07 17:47] LABS: KETONE, URINE AUTO RFX NEGATIVE (NEGATIVE); LEUKOCYTE ESTERASE UR AUTO RFX NEGATIVE (NEGATIVE); NITRITE, URINE AUTO RFX NEGATIVE (NEGATIVE); RBC, URINE AUTO RFX 1 /HPF (0-3); SPECIFIC GRAVITY UR AUTO RFX 1.026 (1.002-1.035); SQUAM EPITHELIAL CELL UR AURFX 0 /HPF (0-6); WBC, URINE AUTO RFX 2 /HPF (0-3)
[2018-10-07 17:49] LABS: ESTIMATED AVERAGE GLUCOSE 352 MG/DL (60-110); HEMOGLOBIN A1c 13.9 %
[2018-10-07 18:59] LABS: BEDSIDE GLUCOSE 317 MG/DL (70-105)
[2018-10-07] MEDS: HumaLOG INSULIN (NovoLOG) PER UNIT SC (18:59)
[2018-10-07 19:29] LABS: BEDSIDE GLUCOSE 286 MG/DL (70-105)
[2018-10-07] MEDS: METOPROLOL TART 25 MG TABLET PO (20:06)
[2018-10-07] MEDS: LISINOPRIL 20 MG TAB PO (20:06)
[2018-10-07 20:33] LABS: BEDSIDE GLUCOSE 266 MG/DL (70-105)
[2018-10-07] MEDS: DOXYCYCLINE HYCLATE 100 MG TAB PO (21:22)
[2018-10-13 15:30] LABS: BEDSIDE GLUCOSE 422 MG/DL (70-105)
== END 2018-10-07 22:06 | disposition home or self-care (01) ==
LOC: M ED 16:13
DX: R03.0 Elevated blood-pressure reading, without diagnosis of hypertension (principal); E11.65 Type 2 diabetes mellitus with hyperglycemia; L73.9 Follicular disorder, unspecified; Z79.82 Long term (current) use of aspirin; Z79.84 Long term (current) use of oral hypoglycemic drugs; Z79.899 Other long term (current) drug therapy; J30.2 Other seasonal allergic rhinitis; Z91.010 Allergy to peanuts; Z91.018 Allergy to other foods
CPT/HCPCS: 82550

== ENCOUNTER → 2018-10-23 | Outpatient (REF) | payer OTHER ==
[~2018-10-23] MED LIST changes: +APAP500T10 PO; +ATOR40TA75 PO; +CHOL4POW2 PO; +DOCU100C16 PO; +DOXY-350 PO; -DRIS50002 PO; +DRIS50003 PO; +FENO160T10 PO; +GABA-845 PO; +GABA800T PO; -GEMF600T PO; +GEMF600T5 PO; +HYDR12.55 PO; +LISI2.5T5; +LISI40TAB PO; +METO1TAB32 PO; +NORT50CA PO; +QUES4POW PO; +RANO5TAB PO; +TOUJ1.2I SC; +VENTAER IN; +VENTAER INH; +VITA100067 PO; -VITA1CAP40 PO; +VITA50005 PO
== END ==
LOC: M SFHCCLAY 15:06
PROVIDERS: ATTEND Family Medicine
DX: L02.91 Cutaneous abscess, unspecified (principal)

== ENCOUNTER → 2018-10-31 | Outpatient (REF) | payer OTHER ==
[~2018-10-31] MED LIST changes: -GABA600T PO; +GABA600T4 PO; -GABA800T PO; +GABA800T4 PO; +LISI40TA; +LISI40TA PO; -LISI40TAB; -LISI40TAB PO
[2018-10-31 16:59] LABS: HEMATOCRIT 38.2 % (42.0-52.0); HEMOGLOBIN 13.3 g/dl (13.5-17.5); MEAN CORPUSCULAR HEMOGLOBIN 28.4 pg (27.0-33.0); MEAN CORPUSCULAR HGB CONC 34.8 g/dl (32.0-36.5); MEAN CORPUSCULAR VOLUME 81.6 fl (80.0-96.0); PLATELET COUNT, AUTOMATED 201 10^3/uL (150-450); RED BLOOD COUNT 4.68 10^6/uL (4.30-6.10); WHITE BLOOD COUNT 7.1 10^3/uL (4.0-10.0)
[2018-10-31 17:23] LABS: HEMOGLOBIN A1c 14.1 %
[2018-10-31 18:21] LABS: BLOOD UREA NITROGEN 12 MG/DL (7-18); CALCIUM LEVEL 8.8 MG/DL (8.5-10.1); CARBON DIOXIDE LEVEL 24 MEQ/L (21-32); CHLORIDE LEVEL 98 MEQ/L (98-107); CREATININE FOR GFR 1.14 MG/DL (0.70-1.30); GLOMERULAR FILTRATION RATE > 60.0 (>56); GLUCOSE, FASTING 567 MG/DL (70-100); POTASSIUM SERUM 5.1 MEQ/L (3.5-5.1); SODIUM LEVEL 132 MEQ/L (136-145)
== END ==
LOC: M SFHCCLAY 13:48
PROVIDERS: ATTEND Family Medicine
DX: E11.40 Type 2 diabetes mellitus with diabetic neuropathy, unspecified (principal); L02.91 Cutaneous abscess, unspecified

== ENCOUNTER 2018-11-04 22:57 | Emergency (ER) | payer OTHER ==
[~2018-11-04] VITALS: Ht 170.2 cm; Wt 70.0 kg
[2018-11-04 23:37] LABS: BASO # 0.1 10^3/uL (0.0-0.2); BASO % 0.9 % (0.0-1.0); EOS # 0.2 10^3/uL (0.0-0.50); EOS % 3.4 % (0.0-3.0); HEMATOCRIT 34.9 % (42.0-52.0); HEMOGLOBIN 12.2 g/dl (13.5-17.5); LYMPH # 3.5 10^3/uL (1.5-4.5); LYMPH % 51.8 % (24.0-44.0); MEAN CORPUSCULAR HEMOGLOBIN 28.6 pg (27.0-33.0); MEAN CORPUSCULAR VOLUME 81.7 fl (80.0-96.0); MONO # 0.6 10^3/uL (0.0-0.8); MONO % 8.6 % (0.0-5.0); NEUTROPHILS # 2.4 10^3/uL (1.8-7.7); NEUTROPHILS % 35.2 % (36.0-66.0); PLATELET COUNT, AUTOMATED 167 10^3/uL (150-450); RED BLOOD COUNT 4.27 10^6/uL (4.30-6.10); WHITE BLOOD COUNT 6.7 10^3/uL (4.0-10.0)
[2018-11-04 23:55] LABS: INR 1.03; PROTHROMBIN TIME 13.6 SECONDS (12.1-14.4)
[2018-11-04 23:56] LABS: PARTIAL THROMBOPLASTIN TIME 24.4 SECONDS (25.4-37.6)
[2018-11-05 00:37] LABS: ALT/SGPT 19 U/L (12-78); BILIRUBIN,DIRECT < 0.1 MG/DL (0.0-0.2); BILIRUBIN,TOTAL 0.2 MG/DL (0.2-1.0); BLOOD UREA NITROGEN 14 MG/DL (7-18); CALCIUM LEVEL 8.3 MG/DL (8.5-10.1); CARBON DIOXIDE LEVEL 23 MEQ/L (21-32); CHLORIDE LEVEL 100 MEQ/L (98-107); CPK CREATINE PHOSPHOKINASE 126 U/L (39-308); CREATININE FOR GFR 1.29 MG/DL (0.70-1.30); FREE T4 1.06 NG/DL (0.76-1.46); GLOMERULAR FILTRATION RATE > 60.0 (>56); GLUCOSE, FASTING 548 MG/DL (70-100); LIPASE 296 U/L (73-393); MB/CK RELATIVE INDEX 2.22 (< OR =4); POTASSIUM SERUM 4.1 MEQ/L (3.5-5.1); SODIUM LEVEL 134 MEQ/L (136-145); THYROID STIMULATING HORMONE 0.692 uIU/ML (0.358-3.740); TOTAL PROTEIN 6.9 GM/DL (6.4-8.2); TROPONIN I < 0.02 NG/ML (< 0.10)
[2018-11-05] MEDS ORDERED: HumuLIN R (REGULAR) INSULIN (NovoLIN R) **100U/ML** PER UNIT IV STA ×2 (00:38→02:13)
[2018-11-05] MEDS ORDERED: traMADol 50 MG TAB PO ONE (01:00)
[2018-11-05] MEDS ORDERED: ISOVUE-370 76% 100ML VIAL (Q9967) As Ordered ONE (01:00)
--- NOTE | 2018-11-05 01:53 | REPVR ---
EXAM: CT Angiography Chest With Contrast EXAM DATE/TIME: 11/05/2018 12:55 AM CLINICAL HISTORY: 53 years old, male; Pain; Chest pain; Type not specified; Additional info: Pleuritic chest pain TECHNIQUE: Axial computed tomographic angiography images of the chest with intravenous contrast using CT angiography protocol. All CT scans at this facility use at least one of these dose optimization techniques: automated exposure control; mA and/or kV adjustment per patient size (includes targeted exams where dose is matched to clinical indication); or iterative reconstruction. Coronal and sagittal reformatted images were created and reviewed. MIP reconstructed images were created and reviewed. CONTRAST: 75 ml of iso administered intravenously. COMPARISON: CT ANGIO CHEST 05/07/2018 11:07 PM FINDINGS: Pulmonary arteries: Contrast opacification satisfactory. No intraluminal filling defect. Aorta: Unremarkable. No aneurysm or dissection. Lungs: Mild linear stranding and groundglass at the lung bases, likely due to atelectasis and/or scarring. No focal consolidation. Pleural space: Unremarkable. No pneumothorax. No pleural effusion. Heart: Unremarkable. No cardiomegaly. No pericardial effusion. Mediastinum: Small hiatal hernia. Lymph nodes: Small mediastinal lymph nodes, nonspecific in appearance. No pathologically enlarged lymph nodes. Bones/joints: No acute osseous abnormality. Mild degenerative changes. Soft tissues: Unremarkable. IMPRESSION: 1. No CT evidence of pulmonary embolism. 2. Additional findings, as above. Electronically signed by: Jared Cintron On 11/05/2018 01:52:30 AM
[2018-11-05 05:48] LABS: CPK CREATINE PHOSPHOKINASE 124 U/L (39-308); MB/CK RELATIVE INDEX 1.85 (< OR =4); TROPONIN I < 0.02 NG/ML (< 0.10)
[2018-11-05 06:30] VITALS: BP 150/89
--- NOTE | 2018-11-05 17:06 | ECGEPIP ---
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
--- NOTE | 2018-11-05 17:10 | ECGEPIP ---
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
== END 2018-11-05 06:46 | disposition home or self-care (01) ==
LOC: M ED 22:57 → EDBD 22:57 → M ED 11-05 06:46
DX: E11.65 Type 2 diabetes mellitus with hyperglycemia (principal); I10 Essential (primary) hypertension; E78.5 Hyperlipidemia, unspecified; J45.909 Unspecified asthma, uncomplicated; Z86.73 Personal history of transient ischemic attack (TIA), and cerebral infarction without residual deficits
CPT/HCPCS: 71275; 80048; 80076; 82550; 82553; 83690; 84439; 84443; 85025; 85610; 85730; 93005; 93041; 94760; 96374; 96376; 99285; Q9967

== ENCOUNTER 2018-11-08 22:45 | Emergency (ER) | payer OTHER ==
[2018-11-08] MEDS ORDERED: NS 1,000 ML IV ONE (23:45)
[2018-11-08] MEDS ORDERED: HumuLIN R (REGULAR) INSULIN (NovoLIN R) **100U/ML** PER UNIT IV ONE (23:45)
[2018-11-08 23:54] LABS: BLOOD UREA NITROGEN 9 MG/DL (7-18); CALCIUM LEVEL 7.9 MG/DL (8.5-10.1); CARBON DIOXIDE LEVEL 25 MEQ/L (21-32); CHLORIDE LEVEL 99 MEQ/L (98-107); CREATININE FOR GFR 1.07 MG/DL (0.70-1.30); GLOMERULAR FILTRATION RATE > 60.0 (>56); GLUCOSE, FASTING 514 MG/DL (70-100); POTASSIUM SERUM 4.3 MEQ/L (3.5-5.1); SODIUM LEVEL 134 MEQ/L (136-145)
[2018-11-09] MEDS ORDERED: HumuLIN R (REGULAR) INSULIN (NovoLIN R) **100U/ML** PER UNIT IV ONE (01:00)
[2018-11-09 02:41] VITALS: BP 135/86
== END 2018-11-09 02:56 | disposition home or self-care (01) ==
LOC: EDBD 22:45 → M ED 22:45
DX: E11.65 Type 2 diabetes mellitus with hyperglycemia (principal); Z91.14 Patient's other noncompliance with medication regimen; I10 Essential (primary) hypertension; J44.9 Chronic obstructive pulmonary disease, unspecified; Z87.19 Personal history of other diseases of the digestive system; J30.2 Other seasonal allergic rhinitis; Z91.018 Allergy to other foods; Z91.010 Allergy to peanuts; Z79.899 Other long term (current) drug therapy; Z79.82 Long term (current) use of aspirin; Z79.4 Long term (current) use of insulin

== ENCOUNTER 2018-11-26 08:03 | Emergency (ER) | payer OTHER ==
[~2018-11-26] VITALS: Ht 170.2 cm; Wt 74.5 kg
[2018-11-26] MEDS ORDERED: ADME100I SQ (08:53)
[2018-11-26] MEDS ORDERED: KETOROLAC 60 MG/2 ML VIAL (J1885) IM ONE (09:15)
[2018-11-26] MEDS ORDERED: LIDO5DIS41 TOP (09:35)
[2018-11-26 09:53] VITALS: BP 150/94
== END 2018-11-26 09:55 | disposition home or self-care (01) ==
LOC: M ED 08:03
DX: S39.012A Strain of muscle, fascia and tendon of lower back, initial encounter (principal); E11.65 Type 2 diabetes mellitus with hyperglycemia; Y99.9 Unspecified external cause status; I10 Essential (primary) hypertension; E78.5 Hyperlipidemia, unspecified
CPT/HCPCS: 96372; 99284; J1885

== ENCOUNTER 2018-12-02 20:45 | Emergency (ER) | payer OTHER ==
[~2018-12-02] VITALS: Ht 170.2 cm; Wt 72.8 kg
[~2018-12-02 20:45] MED LIST changes: +ADME100I SQ; +LIDO5DIS41 TOP
--- NOTE | 2018-12-02 21:29 | ECGEPIP ---
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
[2018-12-02] MEDS ORDERED: GI COCKTAIL 50ML BTL(HYOSCYAMINE/MAALOX/LIDOCAINE VISCOUS)(1:3:1) PO ONE (21:30)
[2018-12-02 21:34] LABS: BASO # 0.1 10^3/uL (0.0-0.2); BASO % 0.8 % (0.0-1.0); EOS # 0.2 10^3/uL (0.0-0.50); EOS % 2.2 % (0.0-3.0); HEMATOCRIT 38.3 % (42.0-52.0); HEMOGLOBIN 13.9 g/dl (13.5-17.5); LYMPH # 4.3 10^3/uL (1.5-4.5); LYMPH % 47.1 % (24.0-44.0); MEAN CORPUSCULAR HEMOGLOBIN 28.5 pg (27.0-33.0); MEAN CORPUSCULAR HGB CONC 36.3 g/dl (32.0-36.5); MEAN CORPUSCULAR VOLUME 78.6 fl (80.0-96.0); MONO # 0.6 10^3/uL (0.0-0.8); MONO % 6.6 % (0.0-5.0); NEUTROPHILS # 3.9 10^3/uL (1.8-7.7); NEUTROPHILS % 43.1 % (36.0-66.0); PLATELET COUNT, AUTOMATED 220 10^3/uL (150-450); RED BLOOD COUNT 4.87 10^6/uL (4.30-6.10); WHITE BLOOD COUNT 9.1 10^3/uL (4.0-10.0)
[2018-12-02 21:54] LABS: ALBUMIN 3.2 GM/DL (3.2-5.2); ALT/SGPT 25 U/L (12-78); BILIRUBIN,DIRECT < 0.1 MG/DL (0.0-0.2); BILIRUBIN,TOTAL 0.2 MG/DL (0.2-1.0); BLOOD UREA NITROGEN 12 MG/DL (7-18); CALCIUM LEVEL 8.9 MG/DL (8.5-10.1); CARBON DIOXIDE LEVEL 25 MEQ/L (21-32); CHLORIDE LEVEL 102 MEQ/L (98-107); CPK CREATINE PHOSPHOKINASE 205 U/L (39-308); CREATININE FOR GFR 1.22 MG/DL (0.70-1.30); GLOMERULAR FILTRATION RATE > 60.0 (>56); GLUCOSE, FASTING 345 MG/DL (70-100); LIPASE 550 U/L (73-393); POTASSIUM SERUM 4.2 MEQ/L (3.5-5.1); SODIUM LEVEL 136 MEQ/L (136-145); TOTAL PROTEIN 7.9 GM/DL (6.4-8.2); TROPONIN I < 0.02 NG/ML (< 0.10)
[2018-12-02] MEDS ORDERED: HumuLIN R (REGULAR) INSULIN (NovoLIN R) **100U/ML** PER UNIT IV ONE (22:15)
[2018-12-02] MEDS ORDERED: NS 1,000 ML IV ONE (22:15)
[2018-12-02] MEDS ORDERED: ISOVUE-370 76% 100ML VIAL (Q9967) As Ordered ONE (23:32)
--- NOTE | 2018-12-03 00:12 | REPVR ---
EXAM: CT Abdomen and Pelvis With Contrast EXAM DATE/TIME: 12/02/2018 11:08 PM CLINICAL HISTORY: 53 years old, male; Pain; Abdominal pain; Epigastric; Additional info: Pancreatitis TECHNIQUE: Axial computed tomography images of the abdomen and pelvis with intravenous contrast. All CT scans at this facility use at least one of these dose optimization techniques: automated exposure control; mA and/or kV adjustment per patient size (includes targeted exams where dose is matched to clinical indication); or iterative reconstruction. Coronal and sagittal reformatted images were created and reviewed. CONTRAST: 100 ml of iso administered intravenously. COMPARISON: CT ABD/PEL W/IV ORAL CONTRAS 07/16/2018 11:24 PM FINDINGS: Lower thorax: Mild linear/discoid stranding and groundglass at the lung bases, likely due to atelectasis and/or scarring. Small hiatal hernia and mild nonspecific distal esophageal wall thickening, suggesting chronic reflux/esophagitis. ABDOMEN: Liver: Mild hepatomegaly. Diffuse hepatic steatosis. Gallbladder and bile ducts: Status post cholecystectomy. No biliary ductal dilatation. Pancreas: Unremarkable. Spleen: Unremarkable. Adrenals: Unremarkable. Kidneys and ureters: No mass. No radiodense calculi. No hydronephrosis. Stomach and bowel: Scattered colonic diverticula without evidence of diverticulitis. No obstruction. No bowel wall thickening. No pneumatosis. Appendix: Normal. PELVIS: Bladder: Mild circumferential urinary bladder wall thickening. Reproductive: Unremarkable. ABDOMEN and PELVIS: Intraperitoneal space: No free fluid. No organized fluid collection. No free air. Bones/joints: No acute osseous abnormality. Osteopenia. Mild degenerative changes. Soft tissues: Unremarkable. Vasculature: Minimal atherosclerotic disease. No aneurysm or dissection. Lymph nodes: No pathologically enlarged lymph nodes. IMPRESSION: 1. No CT evidence of acute pancreatitis. Please note that radiographic findings can lag behind laboratory findings in cases of acute pancreatitis. 2. Small hiatal hernia and mild nonspecific distal esophageal wall thickening, suggesting chronic reflux/esophagitis. 3. Mild circumferential urinary bladder wall thickening. Correlate with urinalysis to exclude cystitis. 4. Additional findings, as above. Electronically signed by: Jared Cintron On 12/03/2018 00:12:06 AM
[2018-12-03 00:15] VITALS: BP 142/91
[2018-12-03] MEDS ORDERED: PROT1TAB2 PO (00:21)
--- NOTE | 2018-12-03 12:56 | ED PDOC ---
Post-Departure Follow-Up dr bishop faxed formal report of ct abd/p for fu Ranjit Ramirez MD Dec 03, 2018 12:56
== END 2018-12-03 01:12 | disposition home or self-care (01) ==
LOC: M ED 20:45
DX: K29.70 Gastritis, unspecified, without bleeding (principal); K20.9 Esophagitis, unspecified; E11.65 Type 2 diabetes mellitus with hyperglycemia; E78.5 Hyperlipidemia, unspecified; F17.210 Nicotine dependence, cigarettes, uncomplicated
CPT/HCPCS: 36415; 74177; 80048; 80076; 82550; 82553; 83690; 85025; 93005; 96374; 99284; Q9967

== ENCOUNTER 2018-12-23 21:35 | Emergency (ER) | payer OTHER ==
[~2018-12-23] VITALS: Ht 170.2 cm; Wt 74.5 kg
[~2018-12-23 21:35] MED LIST changes: +PROT1TAB2 PO
[2018-12-23 22:39] VITALS: BP 156/101
== END 2018-12-23 22:48 | disposition home or self-care (01) ==
LOC: M ED 21:35
DX: F41.8 Other specified anxiety disorders (principal); Z60.9 Problem related to social environment, unspecified; I10 Essential (primary) hypertension; E11.9 Type 2 diabetes mellitus without complications; K21.9 Gastro-esophageal reflux disease without esophagitis; Z91.018 Allergy to other foods; J30.1 Allergic rhinitis due to pollen; Z91.010 Allergy to peanuts; Z79.899 Other long term (current) drug therapy; Z79.84 Long term (current) use of oral hypoglycemic drugs

== ENCOUNTER 2018-12-31 14:47 | Emergency (ER) | payer OTHER ==
[2018-12-31] MEDS ORDERED: KETOROLAC 30 MG/ML VIAL (J1885) IV ONE (15:45)
[2018-12-31] MEDS ORDERED: KETOROLAC 60 MG/2 ML VIAL (J1885) IM ONE (15:45)
[2018-12-31] MEDS ORDERED: IBUP-1022 PO (16:10)
[2018-12-31 16:21] VITALS: BP 130/77
--- NOTE | 2018-12-31 21:07 | ECGEPIP ---
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
== END 2018-12-31 16:24 | disposition home or self-care (01) ==
LOC: M ED 14:47 → EDBD 14:47 → M ED 16:24
DX: R07.89 Other chest pain (principal); E11.9 Type 2 diabetes mellitus without complications; I10 Essential (primary) hypertension; J45.909 Unspecified asthma, uncomplicated; E78.5 Hyperlipidemia, unspecified; Z86.73 Personal history of transient ischemic attack (TIA), and cerebral infarction without residual deficits; Z79.899 Other long term (current) drug therapy; Z79.4 Long term (current) use of insulin; Z91.010 Allergy to peanuts; Z91.018 Allergy to other foods; Z91.048 Other nonmedicinal substance allergy status
CPT/HCPCS: 93005; 96374; 99284; J1885

== ENCOUNTER 2019-01-04 13:07 | Emergency (ER) | payer OTHER ==
[~2019-01-04] VITALS: Ht 170.2 cm; Wt 74.5 kg
[~2019-01-04 13:07] MED LIST changes: +IBUP-1022 PO
--- NOTE | 2019-01-04 13:58 | REP ---
Clinical: trauma. Comparison: 07/08/2018. Findings: The ventricles, sulci, and cisterns are normal in position and appearance. Reyes-white differentiation is maintained. No acute intracranial hemorrhage, mass/mass effect, pathology or trauma/injury. No evidence for acute infarction. No extra-axial fluid collection. Calvarium is intact. Paranasal sinuses and mastoid air cells are clear. Right maxillary mucocele noted. Impression: Normal noncontrast head CT. No evidence for acute intracranial pathology or trauma/injury. Electronically Signed by Tariq Mosqueda MD 01/04/2019 01:50 P
--- NOTE | 2019-01-04 14:02 | REP ---
Clinical: Trauma. Comparison: 05/29/2014 . Technique: Axial noncontrast images from the skull base to the thoracic inlet with coronal and sagittal re-formations Findings: Normal alignment and lordosis is maintained. Cervical vertebral bodies including transverse processes and spinous processes are intact and there is no evidence for acute fracture / compression injury or subluxation. Moderate degenerative changes at C3-4 through C5-6 are again noted and essentially stable including posterior disc bulge at the C3-4 level causing canal stenosis to 6.8 mm maximal diameter. Posterior elements are intact. Paravertebral soft tissues are normal. Impression: Degenerative changes similar to 2013. No evidence for acute pathology or trauma/injury. Electronically Signed by Tariq Mosqueda MD 01/04/2019 01:53 P
[2019-01-04] MEDS ORDERED: ADME100I SC (14:04)
[2019-01-04] MEDS ORDERED: TOUJ1.2I SC (14:04)
[2019-01-04 14:58] LABS: BASO # 0.1 10^3/uL (0.0-0.2); BASO % 0.7 % (0.0-1.0); EOS % 10.1 % (0.0-3.0); HEMATOCRIT 38.6 % (42.0-52.0); HEMOGLOBIN 13.6 g/dl (13.5-17.5); LYMPH % 31.8 % (24.0-44.0); MEAN CORPUSCULAR HEMOGLOBIN 28.3 pg (27.0-33.0); MEAN CORPUSCULAR HGB CONC 35.2 g/dl (32.0-36.5); MEAN CORPUSCULAR VOLUME 80.2 fl (80.0-96.0); MONO # 0.5 10^3/uL (0.0-0.8); MONO % 5.6 % (0.0-5.0); NEUTROPHILS # 4.8 10^3/uL (1.8-7.7); NEUTROPHILS % 51.6 % (36.0-66.0); PLATELET COUNT, AUTOMATED 196 10^3/uL (150-450); RED BLOOD COUNT 4.81 10^6/uL (4.30-6.10); WHITE BLOOD COUNT 9.4 10^3/uL (4.0-10.0)
[2019-01-04] MEDS ORDERED: METOPROLOL SUCC *XL* 25MG TAB (TopROL *XL*) PO ONE (15:00)
[2019-01-04] MEDS ORDERED: GABAPENTIN 400 MG CAP PO ONE (15:00)
[2019-01-04] MEDS ORDERED: LISINOPRIL 40 MG TAB PO ONE (15:00)
[2019-01-04] MEDS ORDERED: hydroCHLOROthiazide 12.5 MG CAPSULE PO ONE (15:00)
[2019-01-04] MEDS ORDERED: traMADol 50 MG TAB PO ONE (15:00)
--- NOTE | 2019-01-04 15:13 | REP ---
Clinical: Trauma. Technique: AP and cross-table lateral views of the right and left femur. Findings: No obvious acute fracture dislocation appreciated. Impression: No obvious acute fracture dislocation of the bilateral femurs. Electronically Signed by Tariq Mosqueda MD 01/04/2019 03:04 P
--- NOTE | 2019-01-04 15:13 | REP ---
Clinical: Trauma. Technique: AP and lateral views of the right tibia / fibula. Findings: No definite acute fracture dislocation. Impression: No obvious acute fracture dislocation. Ankle is incompletely evaluated. Electronically Signed by Tariq Mosqueda MD 01/04/2019 03:04 P
--- NOTE | 2019-01-04 15:14 | REP ---
Clinical: Trauma. Technique: AP, lateral, and swimmers views. Findings: Alignment and kyphosis is maintained. Vertebral bodies intact. No acute fracture / compression injury or subluxation. No degenerative changes. Paravertebral soft tissues are normal. Impression: Normal thoracic spine series. Electronically Signed by Tariq Mosqueda MD 01/04/2019 03:05 P
[2019-01-04 15:15] VITALS: BP 169/110
--- NOTE | 2019-01-04 15:15 | REP ---
Clinical: Trauma. Technique: Two views of the left clavicle. Findings: No acute fracture dislocation. Sternoclavicular and acromioclavicular joints appear normal. Surrounding soft tissues unremarkable. Impression: No acute fracture. Electronically Signed by Tariq Mosqueda MD 01/04/2019 03:05 P
--- NOTE | 2019-01-04 15:18 | REP ---
Clinical: Chest pain. Trauma . Comparison: 07/08/2018 . Findings: The mediastinum and cardiac silhouette are stable and within normal limits for portable technique. The lung burger are clear without acute consolidation, effusion, or pneumothorax. Skeletal structures are intact. Impression: No acute cardiopulmonary process appreciated. Electronically Signed by Tariq Mosqueda MD 01/04/2019 03:08 P
--- NOTE | 2019-01-04 15:22 | REP ---
Clinical: Trauma Technique: AP, lateral, coned-down views of the lumbar spine. Findings: Three views of the lumbosacral spine demonstrate satisfactory alignment and lordosis without acute fracture / compression injury or subluxation. Mild multilevel age-related changes noted. Impression: No acute fracture / compression injury or subluxation. Electronically Signed by Tariq Mosqueda MD 01/04/2019 03:12 P
[2019-01-04 15:24] LABS: ALBUMIN 3.1 GM/DL (3.2-5.2); ALT/SGPT 22 U/L (12-78); BILIRUBIN,DIRECT < 0.1 MG/DL (0.0-0.2); BILIRUBIN,TOTAL 0.2 MG/DL (0.2-1.0); BLOOD UREA NITROGEN 10 MG/DL (7-18); CALCIUM LEVEL 8.6 MG/DL (8.5-10.1); CARBON DIOXIDE LEVEL 27 MEQ/L (21-32); CHLORIDE LEVEL 101 MEQ/L (98-107); CPK CREATINE PHOSPHOKINASE 131 U/L (39-308); CREATININE FOR GFR 1.07 MG/DL (0.70-1.30); GLOMERULAR FILTRATION RATE > 60.0 (>56); GLUCOSE, FASTING 398 MG/DL (70-100); LIPASE 237 U/L (73-393); MB/CK RELATIVE INDEX 1.91 (< OR =4); NT-PRO BNP 15 PG/ML (<125); POTASSIUM SERUM 3.9 MEQ/L (3.5-5.1); SODIUM LEVEL 136 MEQ/L (136-145); THYROID STIMULATING HORMONE 0.637 uIU/ML (0.358-3.740); TOTAL PROTEIN 7.8 GM/DL (6.4-8.2); TROPONIN I < 0.02 NG/ML (< 0.10)
[2019-01-04] MEDS ORDERED: HumuLIN R (REGULAR) INSULIN (NovoLIN R) **100U/ML** PER UNIT IV ONE (16:15)
[2019-01-04] MEDS ORDERED: NS 1,000 ML IV ONE (16:15)
[2019-01-04 17:24] LABS: INR 0.98; PROTHROMBIN TIME 13.1 SECONDS (12.1-14.4)
--- NOTE | 2019-01-04 20:10 | ECGEPIP ---
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
[2019-01-04 21:26] LABS: CPK CREATINE PHOSPHOKINASE 113 U/L (39-308); TROPONIN I < 0.02 NG/ML (< 0.10)
[2019-01-04 22:00] VITALS: BP 135/86
--- NOTE | 2019-01-05 06:30 | ECGEPIP ---
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
== END 2019-01-04 22:00 | disposition home or self-care (01) ==
LOC: M ED 13:07 → EDBD 13:07 → M ED 22:00
DX: F41.0 Panic disorder [episodic paroxysmal anxiety] (principal); T14.8XXA Other injury of unspecified body region, initial encounter; W10.8XXA Fall (on) (from) other stairs and steps, initial encounter; Y92.410 Unspecified street and highway as the place of occurrence of the external cause; J45.909 Unspecified asthma, uncomplicated; E11.9 Type 2 diabetes mellitus without complications; I10 Essential (primary) hypertension; E78.9 Disorder of lipoprotein metabolism, unspecified; R00.0 Tachycardia, unspecified; Z79.899 Other long term (current) drug therapy; Z79.4 Long term (current) use of insulin; Z91.010 Allergy to peanuts; Z91.018 Allergy to other foods

== ENCOUNTER 2019-02-15 21:47 | Emergency (ER) | payer OTHER ==
[~2019-02-15] VITALS: Ht 170.2 cm; Wt 76.9 kg
[~2019-02-15 21:47] MED LIST changes: -/HCTZ25TA PO; -ACET50TA PO; +ADME100I SC; +CHLO1SOL MT; -DOCU10ELUD PO; +DOCU5LIQ PO; +FENO135C6 PO; -FENO1CAP2 PO; +HYDR-3644 PO; +HYDR-3715 PO; +LISI-1046; -LISI2.5T5; +MAPA500T17 PO; -NORCOTAB PO; -PERI12LIQ MT
[2019-02-15] MEDS ORDERED: NS 500 ML IV ONE (22:00)
[2019-02-15] MEDS ORDERED: ONDANSETRON 4MG/2ML VIAL (J2405) IV ONE (22:00)
[2019-02-15 22:11] LABS: BASO % 0.3 % (0.0-1.0); EOS # 0.2 10^3/uL (0.0-0.50); EOS % 1.9 % (0.0-3.0); HEMATOCRIT 36.2 % (42.0-52.0); HEMOGLOBIN 12.7 g/dl (13.5-17.5); LYMPH # 3.2 10^3/uL (1.5-4.5); LYMPH % 35.9 % (24.0-44.0); MEAN CORPUSCULAR HEMOGLOBIN 27.7 pg (27.0-33.0); MEAN CORPUSCULAR HGB CONC 35.1 g/dl (32.0-36.5); MONO # 0.7 10^3/uL (0.0-0.8); MONO % 7.9 % (0.0-5.0); NEUTROPHILS # 4.8 10^3/uL (1.8-7.7); NEUTROPHILS % 53.8 % (36.0-66.0); PLATELET COUNT, AUTOMATED 329 10^3/uL (150-450); RED BLOOD COUNT 4.58 10^6/uL (4.30-6.10)
[2019-02-15] MEDS ORDERED: HumaLOG INSULIN (NovoLOG) PER UNIT SC STA (22:23)
[2019-02-15 22:39] LABS: ALT/SGPT 16 U/L (12-78); BILIRUBIN,DIRECT < 0.1 MG/DL (0.0-0.2); BILIRUBIN,TOTAL 0.2 MG/DL (0.2-1.0); BLOOD UREA NITROGEN 13 MG/DL (7-18); CALCIUM LEVEL 8.8 MG/DL (8.5-10.1); CARBON DIOXIDE LEVEL 28 MEQ/L (21-32); CHLORIDE LEVEL 95 MEQ/L (98-107); CPK CREATINE PHOSPHOKINASE 108 U/L (39-308); CREATININE FOR GFR 1.11 MG/DL (0.70-1.30); GLOMERULAR FILTRATION RATE > 60.0 (>56); GLUCOSE, FASTING 575 MG/DL (70-100); LIPASE 345 U/L (73-393); MB/CK RELATIVE INDEX 2.22 (< OR =4); POTASSIUM SERUM 4.6 MEQ/L (3.5-5.1); SODIUM LEVEL 132 MEQ/L (136-145); TOTAL PROTEIN 7.3 GM/DL (6.4-8.2); TROPONIN I < 0.02 NG/ML (< 0.10)
[2019-02-15 23:16] LABS: INFLUENZA A AMPLIFICATION NEGATIVE (NEGATIVE); INFLUENZA B AMPLIFICATION NEGATIVE (NEGATIVE)
[2019-02-15] MEDS ORDERED: ZOFR4TAB16 PO (23:27)
[2019-02-16 00:20] VITALS: BP 148/80
--- NOTE | 2019-02-16 05:37 | ECGEPIP ---
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
--- NOTE | 2019-02-16 09:37 | REP ---
Acute abdominal series five views including upright PA chest, two upright views of the abdomen and two supine views of the abdomen: PA chest: Comparison is 01/04/2019. Lung burger are clear. Cardiac size is normal. The jordin, mediastinum, skeletal structures are unremarkable. There is no free subdiaphragmatic air. Impression: Negative PA chest. Abdomen, supine upright views, total four views: The bowel gas pattern is normal. There are no calcifications. There are surgical clips in the right upper quadrant. Skeletal structures and soft tissues otherwise are unremarkable. Impression: Normal bowel gas pattern. Electronically Signed by Brayan Alvarado MD 02/16/2019 07:48 A
== END 2019-02-16 00:15 | disposition home or self-care (01) ==
LOC: EDBD 21:47 → M ED 21:47
DX: A08.4 Viral intestinal infection, unspecified (principal); E11.9 Type 2 diabetes mellitus without complications; J45.909 Unspecified asthma, uncomplicated; I10 Essential (primary) hypertension; I25.10 Atherosclerotic heart disease of native coronary artery without angina pectoris; E78.5 Hyperlipidemia, unspecified; Z91.19 Patient's noncompliance with other medical treatment and regimen; Z91.010 Allergy to peanuts; Z91.018 Allergy to other foods; Z91.048 Other nonmedicinal substance allergy status
CPT/HCPCS: 74021; 80048; 80076; 81001; 82550; 82553; 83690; 85025; 87502; 93005; 93041; 96361; 96374; 99285; J2405

== ENCOUNTER 2019-03-03 18:59 | Emergency (ER) | payer OTHER ==
[~2019-03-03] VITALS: Ht 170.2 cm; Wt 74.5 kg
[~2019-03-03 18:59] MED LIST changes: +ZOFR4TAB16 PO
[2019-03-03] MEDS ORDERED: NS 1,000 ML IV ONE (19:45)
[2019-03-03] MEDS ORDERED: ONDANSETRON 4MG/2ML VIAL (J2405) IV ONE (20:00)
[2019-03-03 20:29] LABS: BASO # 0.1 10^3/uL (0.0-0.2); BASO % 0.8 % (0.0-1.0); EOS # 0.2 10^3/uL (0.0-0.50); EOS % 2.5 % (0.0-3.0); HEMATOCRIT 37.5 % (42.0-52.0); LYMPH # 3.1 10^3/uL (1.5-4.5); LYMPH % 39.4 % (24.0-44.0); MEAN CORPUSCULAR HEMOGLOBIN 28.3 pg (27.0-33.0); MEAN CORPUSCULAR HGB CONC 34.7 g/dl (32.0-36.5); MEAN CORPUSCULAR VOLUME 81.5 fl (80.0-96.0); MONO # 0.6 10^3/uL (0.0-0.8); MONO % 7.4 % (0.0-5.0); NEUTROPHILS % 49.8 % (36.0-66.0); PLATELET COUNT, AUTOMATED 212 10^3/uL (150-450); WHITE BLOOD COUNT 7.9 10^3/uL (4.0-10.0)
[2019-03-03 20:51] LABS: INR 0.93; PARTIAL THROMBOPLASTIN TIME 23.6 SECONDS (25.4-37.6); PROTHROMBIN TIME 12.6 SECONDS (12.1-14.4)
[2019-03-03 21:06] LABS: ALBUMIN 3.2 GM/DL (3.2-5.2); ALT/SGPT 18 U/L (12-78); AMYLASE 84 U/L (25-115); BILIRUBIN,DIRECT < 0.1 MG/DL (0.0-0.2); BILIRUBIN,TOTAL 0.3 MG/DL (0.2-1.0); BLOOD UREA NITROGEN 12 MG/DL (7-18); CALCIUM LEVEL 8.9 MG/DL (8.5-10.1); CARBON DIOXIDE LEVEL 27 MEQ/L (21-32); CHLORIDE LEVEL 101 MEQ/L (98-107); CPK CREATINE PHOSPHOKINASE 129 U/L (39-308); CREATININE FOR GFR 1.01 MG/DL (0.70-1.30); GLOMERULAR FILTRATION RATE > 60.0 (>56); GLUCOSE, FASTING 444 MG/DL (70-100); LIPASE 475 U/L (73-393); MB/CK RELATIVE INDEX 2.33 (< OR =4); POTASSIUM SERUM 4.2 MEQ/L (3.5-5.1); SODIUM LEVEL 133 MEQ/L (136-145); TOTAL PROTEIN 7.7 GM/DL (6.4-8.2); TROPONIN I < 0.02 NG/ML (< 0.10)
[2019-03-03] MEDS ORDERED: ONDA4TAB6 PO (21:53)
[2019-03-03 23:46] VITALS: BP 152/65
--- NOTE | 2019-03-04 01:18 | REP ---
Clinical: Lower chest and abdominal pain . Comparison: 01/04/2019 . Findings: The mediastinum and cardiac silhouette are stable and within normal limits for portable technique. Very subtle bibasilar atelectasis cannot be excluded and should be correlated clinically. Impression: Very subtle basilar atelectasis cannot be excluded. Electronically Signed by Tariq Mosqueda MD 03/04/2019 01:09 A
--- NOTE | 2019-03-04 05:56 | ECGEPIP ---
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
== END 2019-03-03 23:58 | disposition home or self-care (01) ==
LOC: M ED 18:59
DX: R11.10 Vomiting, unspecified (principal); T78.1XXA Other adverse food reactions, not elsewhere classified, initial encounter; K85.90 Acute pancreatitis without necrosis or infection, unspecified; E11.9 Type 2 diabetes mellitus without complications; I11.9 Hypertensive heart disease without heart failure; I25.10 Atherosclerotic heart disease of native coronary artery without angina pectoris; J45.909 Unspecified asthma, uncomplicated; Z87.19 Personal history of other diseases of the digestive system; Z91.010 Allergy to peanuts; Z91.018 Allergy to other foods; Z79.899 Other long term (current) drug therapy; Z79.4 Long term (current) use of insulin
CPT/HCPCS: 71045; 80048; 80076; 81001; 82150; 82550; 82553; 83605; 83690; 85025; 85610; 85730; 87040; 93005; 93041; 96361; 96374; 99284; J2405

== ENCOUNTER 2019-04-15 21:52 | Emergency (ER) | payer OTHER ==
[~2019-04-15] VITALS: Ht 170.2 cm; Wt 70.0 kg
[~2019-04-15 21:52] MED LIST changes: +ONDA4TAB6 PO
[2019-04-15] MEDS ORDERED: LORATADINE 10 MG TAB PO ONE (23:45)
[2019-04-15] MEDS ORDERED: FLUORESCEIN OPHTH 1 MG STRIP OS ONE (23:45)
[2019-04-15] MEDS ORDERED: CLAR10CA3 PO (23:46)
[2019-04-15] MEDS ORDERED: CROM5SOL OP (23:46)
[2019-04-15 23:58] VITALS: BP 138/64
== END 2019-04-16 | disposition home or self-care (01) ==
LOC: M ED 21:52
DX: H10.12 Acute atopic conjunctivitis, left eye (principal); I25.2 Old myocardial infarction; E11.9 Type 2 diabetes mellitus without complications; I10 Essential (primary) hypertension; E78.5 Hyperlipidemia, unspecified; M54.5 Low back pain; Z86.73 Personal history of transient ischemic attack (TIA), and cerebral infarction without residual deficits; G62.9 Polyneuropathy, unspecified; J45.909 Unspecified asthma, uncomplicated; K52.9 Noninfective gastroenteritis and colitis, unspecified; K31.84 Gastroparesis; J30.2 Other seasonal allergic rhinitis; Z79.4 Long term (current) use of insulin; Z79.899 Other long term (current) drug therapy; Z91.018 Allergy to other foods; Z91.010 Allergy to peanuts

== ENCOUNTER 2019-04-20 00:35 | Emergency (ER) | payer OTHER ==
[~2019-04-20] VITALS: Ht 182.9 cm; Wt 81.8 kg
[~2019-04-20 00:35] MED LIST changes: +CLAR10CA3 PO; +CROM5SOL OP
[2019-04-20 01:21] LABS: BASO # 0.1 10^3/uL (0.0-0.2); BASO % 0.8 % (0.0-1.0); EOS # 0.2 10^3/uL (0.0-0.50); EOS % 2.3 % (0.0-3.0); HEMATOCRIT 35.6 % (42.0-52.0); HEMOGLOBIN 12.5 g/dl (13.5-17.5); LYMPH # 3.1 10^3/uL (1.5-4.5); LYMPH % 36.8 % (24.0-44.0); MEAN CORPUSCULAR HEMOGLOBIN 28.3 pg (27.0-33.0); MEAN CORPUSCULAR HGB CONC 35.1 g/dl (32.0-36.5); MEAN CORPUSCULAR VOLUME 80.7 fl (80.0-96.0); MONO # 0.7 10^3/uL (0.0-0.8); MONO % 8.1 % (0.0-5.0); NEUTROPHILS # 4.3 10^3/uL (1.8-7.7); NEUTROPHILS % 51.8 % (36.0-66.0); PLATELET COUNT, AUTOMATED 214 10^3/uL (150-450); RED BLOOD COUNT 4.41 10^6/uL (4.30-6.10); WHITE BLOOD COUNT 8.4 10^3/uL (4.0-10.0)
[2019-04-20 02:03] LABS: BLOOD UREA NITROGEN 15 MG/DL (7-18); CALCIUM LEVEL 9.2 MG/DL (8.5-10.1); CARBON DIOXIDE LEVEL 27 MEQ/L (21-32); CHLORIDE LEVEL 97 MEQ/L (98-107); CK-MB VALUE MASS 2.2 NG/ML (<3.6); CPK CREATINE PHOSPHOKINASE 103 U/L (39-308); CREATININE FOR GFR 1.03 MG/DL (0.70-1.30); GLOMERULAR FILTRATION RATE > 60.0 (>56); GLUCOSE, FASTING 490 MG/DL (70-100); MB/CK RELATIVE INDEX 2.14 (< OR =4); POTASSIUM SERUM 4.3 MEQ/L (3.5-5.1); SODIUM LEVEL 133 MEQ/L (136-145); THYROID STIMULATING HORMONE 0.445 uIU/ML (0.358-3.740); TROPONIN I < 0.02 NG/ML (< 0.10)
[2019-04-20] MEDS ORDERED: ASPIRIN 81 MG CHEW TABLET PO ONE (04:45)
[2019-04-20] MEDS ORDERED: NITROGLYCERIN 0.4 MG SUBL TABLET SL PRN (04:45)
--- NOTE | 2019-04-20 06:09 | ECGEPIP ---
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
[2019-04-20 06:35] LABS: ALBUMIN 2.5 GM/DL (3.2-5.2); ALT/SGPT 17 U/L (12-78); BILIRUBIN,DIRECT < 0.1 MG/DL (0.0-0.2); BILIRUBIN,TOTAL < 0.1 MG/DL (0.2-1.0); BLOOD UREA NITROGEN 15 MG/DL (7-18); CALCIUM LEVEL 8.6 MG/DL (8.5-10.1); CARBON DIOXIDE LEVEL 30 MEQ/L (21-32); CHLORIDE LEVEL 103 MEQ/L (98-107); CK-MB VALUE MASS 1.9 NG/ML (<3.6); CPK CREATINE PHOSPHOKINASE 94 U/L (39-308); CREATININE FOR GFR 0.87 MG/DL (0.70-1.30); GLOMERULAR FILTRATION RATE > 60.0 (>56); GLUCOSE, FASTING 367 MG/DL (70-100); LIPASE 232 U/L (73-393); MB/CK RELATIVE INDEX 2.02 (< OR =4); SODIUM LEVEL 137 MEQ/L (136-145); TOTAL PROTEIN 6.7 GM/DL (6.4-8.2); TROPONIN I < 0.02 NG/ML (< 0.10)
[2019-04-20] MEDS ORDERED: HumuLIN R (REGULAR) INSULIN (NovoLIN R) **100U/ML** PER UNIT IV STA (06:48)
[2019-04-20] MEDS ORDERED: KETOROLAC 30 MG/ML VIAL (J1885) IV ONE (07:00)
--- NOTE | 2019-04-20 07:39 | REP ---
Portable chest, 12th 55 a.m., single upright AP view: Comparison is 03/03/2019. Lung burger are clear except for a subtle density inferolaterally in the left lung, similar to the prior study, compatible with a lung parenchymal scar. The lung burger otherwise clear. Cardiac size is normal. The jordin, mediastinum, and skeletal structures are unremarkable. Impression: No acute cardiopulmonary findings. Persisting parenchymal scar inferolaterally on the left. Electronically Signed by Brayan Alvarado MD 04/20/2019 07:31 A
[2019-04-20 08:52] VITALS: BP 120/65
== END 2019-04-20 08:53 | disposition home or self-care (01) ==
LOC: M ED 00:35
DX: R07.9 Chest pain, unspecified (principal); E11.65 Type 2 diabetes mellitus with hyperglycemia; Z79.899 Other long term (current) drug therapy; Z79.4 Long term (current) use of insulin; Z91.010 Allergy to peanuts; Z91.018 Allergy to other foods; Z91.048 Other nonmedicinal substance allergy status; J30.2 Other seasonal allergic rhinitis
CPT/HCPCS: 71045; 80048; 80076; 82550; 82553; 83690; 84439; 84443; 85025; 93005; 93041; 94760; 96374; 96375; 99285; J1885

== ENCOUNTER 2019-05-06 04:23 | Emergency (ER) | payer OTHER ==
[~2019-05-06] VITALS: Ht 170.2 cm; Wt 70.0 kg
[~2019-05-06 04:23] MED LIST changes: +RANO500T7 PO; -RANO5TAB PO
[2019-05-06] MEDS ORDERED: METOCLOPRAMIDE INJ 10MG/2ML VIAL (J2765) IV ONE (05:45)
[2019-05-06] MEDS ORDERED: KETOROLAC 30 MG/ML VIAL (J1885) IV ONE (05:45)
[2019-05-06] MEDS ORDERED: NS 1,000 ML IV ONE (05:45)
[2019-05-06 05:58] LABS: BASO # 0.1 10^3/uL (0.0-0.2); BASO % 0.9 % (0.0-1.0); EOS # 0.3 10^3/uL (0.0-0.50); EOS % 3.3 % (0.0-3.0); HEMATOCRIT 37.4 % (42.0-52.0); HEMOGLOBIN 12.7 g/dl (13.5-17.5); LYMPH # 3.4 10^3/uL (1.5-4.5); LYMPH % 43.4 % (24.0-44.0); MEAN CORPUSCULAR HEMOGLOBIN 28.3 pg (27.0-33.0); MEAN CORPUSCULAR VOLUME 83.3 fl (80.0-96.0); MONO # 0.7 10^3/uL (0.0-0.8); MONO % 8.8 % (0.0-5.0); NEUTROPHILS # 3.4 10^3/uL (1.8-7.7); NEUTROPHILS % 43.3 % (36.0-66.0); PLATELET COUNT, AUTOMATED 209 10^3/uL (150-450); RED BLOOD COUNT 4.49 10^6/uL (4.30-6.10); WHITE BLOOD COUNT 7.8 10^3/uL (4.0-10.0)
[2019-05-06] MEDS ORDERED: ISOVUE-370 76% 100ML VIAL (Q9967) As Ordered ONE (06:02)
[2019-05-06 06:27] LABS: ALT/SGPT 21 U/L (12-78); BILIRUBIN,DIRECT < 0.1 MG/DL (0.0-0.2); BILIRUBIN,TOTAL 0.1 MG/DL (0.2-1.0); CK-MB VALUE MASS 2.8 NG/ML (<3.6); CPK CREATINE PHOSPHOKINASE 164 U/L (39-308); LIPASE 132 U/L (73-393); MB/CK RELATIVE INDEX 1.71 (< OR =4); TROPONIN I < 0.02 NG/ML (< 0.10)
--- NOTE | 2019-05-06 07:06 | REPVR ---
EXAM: CT Abdomen and Pelvis With Contrast EXAM DATE/TIME: 05/06/2019 5:55 AM CLINICAL HISTORY: 53 years old, male; Abdominal pain; Generalized; Additional info: Abd pain TECHNIQUE: Imaging protocol: Axial computed tomography images of the abdomen and pelvis with intravenous contrast. Coronal and sagittal reformatted images were created and reviewed. Radiation optimization: All CT scans at this facility use at least one of these dose optimization techniques: automated exposure control; mA and/or kV adjustment per patient size (includes targeted exams where dose is matched to clinical indication); or iterative reconstruction. Contrast material: ISO; Contrast volume: 100 ml; Contrast route: AC; COMPARISON: CT ABD/PEL W/IV CONTRAST ONLY 12/02/2018 11:33 PM FINDINGS: Lungs: There is mild bibasilar atelectatic changes. Mediastinum: There is apparent thickening of the distal esophagus. Liver: Normal. No mass. Gallbladder and bile ducts: The patient status post cholecystectomy. There is no biliary ductal dilatation. Pancreas: Normal. No ductal dilation. There is a 2.4 x 1.7 cm soft tissue rounded density abutting the tail of the pancreas (axial image 27) likely splenule, remain unchanged since CT of the abdomen and pelvis dated 01/19/2015. Spleen: Normal. No splenomegaly. Adrenals: Normal. No mass. Kidneys and ureters: Normal. No hydronephrosis. Stomach and bowel: The stomach and duodenum are significantly distended. There is suggestion of small bowel wall thickening and hyperemia. Appendix: No evidence of appendicitis. Intraperitoneal space: Normal. No free air. No significant fluid collection. Vasculature: Normal. No abdominal aortic aneurysm. Lymph nodes: There are small shotty mesenteric lymph nodes including lymph nodes in the lesser sac abdomen. Bladder: The urinary bladder is significantly distended. Reproductive: Unremarkable as visualized. Bones/joints: No acute fracture. No dislocation. Soft tissues: Unremarkable. IMPRESSION: 1. CT findings suggestive of gastroenteritis. Correlate clinically. 2. Apparent thickened distal esophagus. Correlate clinically for esophagitis. Other etiologies cannot be excluded. If indicated upper endoscopy may be considered for further evaluation. 3. Significantly distended urinary bladder. Correlate clinically for a retention or bladder obstruction. Electronically signed by: Rogers Ku On 05/06/2019 07:06:33 AM
[2019-05-06 07:45] LABS: ETHYL ALCOHOL (ETHANOL) < 0.003 % (0.000-0.010)
[2019-05-06 08:58] VITALS: BP 161/98
--- NOTE | 2019-05-06 13:35 | ED PDOC ---
Post-Departure Follow-Up dr bishop faxed formal report of ct abd/p. pt left ama Ranjit Ramirez MD May 06, 2019 13:35
--- NOTE | 2019-05-07 10:26 | ECGEPIP ---
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
== END 2019-05-06 09:02 | disposition left against medical advice (07) ==
LOC: M ED 04:23
DX: E11.65 Type 2 diabetes mellitus with hyperglycemia (principal); R33.9 Retention of urine, unspecified; R11.2 Nausea with vomiting, unspecified; R19.7 Diarrhea, unspecified; J45.909 Unspecified asthma, uncomplicated; Z91.010 Allergy to peanuts; Z91.018 Allergy to other foods; Z79.899 Other long term (current) drug therapy; Z79.4 Long term (current) use of insulin
CPT/HCPCS: 74177; 80047; 80076; 82550; 82553; 83605; 83690; 85025; 93005; 93041; 96361; 96374; 96375; 99285; G0480; J1885; J2765; Q9967

== ENCOUNTER 2019-06-11 15:50 | Emergency (ER) | payer OTHER ==
[~2019-06-11] VITALS: Ht 170.2 cm; Wt 70.0 kg
[2019-06-11 16:27] LABS: BASO # 0.1 10^3/uL (0.0-0.2); BASO % 0.5 % (0.0-1.0); EOS # 0.2 10^3/uL (0.0-0.50); EOS % 1.7 % (0.0-3.0); HEMATOCRIT 36.2 % (42.0-52.0); HEMOGLOBIN 12.9 g/dl (13.5-17.5); LYMPH # 2.6 10^3/uL (1.5-4.5); LYMPH % 27.3 % (24.0-44.0); MEAN CORPUSCULAR HEMOGLOBIN 28.5 pg (27.0-33.0); MEAN CORPUSCULAR HGB CONC 35.6 g/dl (32.0-36.5); MEAN CORPUSCULAR VOLUME 79.9 fl (80.0-96.0); MONO % 10.2 % (0.0-5.0); NEUTROPHILS # 5.6 10^3/uL (1.8-7.7); PLATELET COUNT, AUTOMATED 206 10^3/uL (150-450); RED BLOOD COUNT 4.53 10^6/uL (4.30-6.10); WHITE BLOOD COUNT 9.4 10^3/uL (4.0-10.0)
[2019-06-11 16:29] LABS: VENOUS BASE EXCESS 0.6 (-2.0-2.0); VENOUS O2 SATURATION 98.2 % (60.0-80.0); VENOUS PARTIAL PRESSURE CO2 44.4 mmHg (38.0-50.0); VENOUS PARTIAL PRESSURE O2 110.3 mmHg (30.0-50.0); VENOUS PH 7.385 UNITS (7.330-7.430); VENOUS STANDARD HCO3 25.1 MEQ/L; VENOUS TOTAL CO2 27.3 MEQ/L (24.0-28.0)
[2019-06-11] MEDS ORDERED: NS 1,000 ML IV ONE (16:30)
[2019-06-11 16:36] LABS: INR 1.02; PROTHROMBIN TIME 13.1 SECONDS (11.8-14.0)
[2019-06-11 17:04] LABS: BLOOD UREA NITROGEN 10 MG/DL (7-18); CALCIUM LEVEL 9.3 MG/DL (8.5-10.1); CARBON DIOXIDE LEVEL 25 MEQ/L (21-32); CHLORIDE LEVEL 100 MEQ/L (98-107); CK-MB VALUE MASS 2.1 NG/ML (<3.6); CPK CREATINE PHOSPHOKINASE 101 U/L (39-308); CREATININE FOR GFR 1.05 MG/DL (0.70-1.30); ETHYL ALCOHOL (ETHANOL) < 0.003 % (0.000-0.010); GLOMERULAR FILTRATION RATE > 60.0 (>56); GLUCOSE, FASTING 475 MG/DL (70-100); MAGNESIUM LEVEL 2.2 MG/DL (1.8-2.4); MB/CK RELATIVE INDEX 2.08 (< OR =4); POTASSIUM SERUM 4.2 MEQ/L (3.5-5.1); SODIUM LEVEL 134 MEQ/L (136-145); THYROID STIMULATING HORMONE 0.512 uIU/ML (0.358-3.740); TROPONIN I < 0.02 NG/ML (< 0.10)
--- NOTE | 2019-06-11 17:30 | REP ---
REASON: Syncope. PRIORS: 04/20/2019 FINDINGS: The superior mediastinal structures are midline. The cardiac silhouette is unremarkable in size, shape, and position. The diaphragmatic surfaces of the lungs are regular, and the costophrenic angles are clear. The pulmonary burger are clear. The imaged osseous structures are intact. IMPRESSION: There is no acute cardiopulmonary disease. No change. Electronically Signed by Alfredo Mancilla DO 06/12/2019 10:30 A
[2019-06-11] MEDS ORDERED: HumuLIN R (REGULAR) INSULIN (NovoLIN R) **100U/ML** PER UNIT IV ONE ×2 (17:45→19:30)
[2019-06-11 18:27] LABS: AMPHETAMINES LEVEL URINE NEGATIVE (NEGATIVE); BARBITURATES URINE NEGATIVE (NEGATIVE); BENZODIAZEPINES URINE NEGATIVE (NEGATIVE); CANNABINOIDS URINE NEGATIVE (NEGATIVE); COCAINE METABOLITE URINE NEGATIVE (NEGATIVE); METHADONE URINE NEGATIVE (NEGATIVE); OPIATES URINE NEGATIVE (NEGATIVE); PHENCYCLIDINE URINE NEGATIVE (NEGATIVE)
[2019-06-11 21:34] VITALS: BP 162/104
--- NOTE | 2019-06-12 08:13 | REP ---
CT HEAD WITHOUT CONTRAST: HISTORY: Syncope. COMPARISON: 01/04/2019 There is no intraparenchymal hemorrhage, mass or midline shift. The ventricular system is normal in appearance. There is no extracerebral collection. There is no fracture. The visualized sinuses are clear. IMPRESSION: There is no intracranial lesion. Electronically Signed by Elvis Samson MD 06/12/2019 08:18 A
--- NOTE | 2019-06-13 07:49 | ECGEPIP ---
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
== END 2019-06-11 21:52 | disposition home or self-care (01) ==
LOC: M ED 15:50
DX: R55 Syncope and collapse (principal); E11.65 Type 2 diabetes mellitus with hyperglycemia; I10 Essential (primary) hypertension; F17.200 Nicotine dependence, unspecified, uncomplicated; Z91.010 Allergy to peanuts; Z91.018 Allergy to other foods; J30.2 Other seasonal allergic rhinitis; Z79.899 Other long term (current) drug therapy; Z79.4 Long term (current) use of insulin
CPT/HCPCS: 70450; 71045; 80048; 80307; 82550; 82553; 82803; 83735; 84443; 85025; 85610; 93005; 93041; 96374; 96375; 99285; G0480

== ENCOUNTER → 2019-06-20 | Outpatient (REF) | payer OTHER | LOC: M LAB REF 14:31 | PROVIDERS: ATTEND Physician Assistant Medical | DX: L02.419 Cutaneous abscess of limb, unspecified (principal) ==

== ENCOUNTER 2019-07-11 15:40 | Emergency (ER) | payer OTHER ==
[~2019-07-11] VITALS: Ht 170.2 cm; Wt 70.0 kg
[2019-07-11 16:21] LABS: BASO # 0.1 10^3/uL (0.0-0.2); BASO % 0.7 % (0.0-1.0); EOS # 0.2 10^3/uL (0.0-0.5); EOS % 2.1 % (0.0-3.0); HEMATOCRIT 39.2 % (42.0-52.0); HEMOGLOBIN 13.4 g/dl (13.5-17.5); LYMPH # 2.6 10^3/uL (1.5-5.0); LYMPH % 34.4 % (24.0-44.0); MEAN CORPUSCULAR HGB CONC 34.2 g/dl (32.0-36.5); MEAN CORPUSCULAR VOLUME 81.8 fl (80.0-96.0); MONO # 0.6 10^3/uL (0.0-0.8); MONO % 8.3 % (0.0-5.0); NEUTROPHILS # 4.1 10^3/uL (1.5-8.5); NEUTROPHILS % 54.2 % (36.0-66.0); PLATELET COUNT, AUTOMATED 204 10^3/uL (150-450); RED BLOOD COUNT 4.79 10^6/uL (4.30-6.10); WHITE BLOOD COUNT 7.6 10^3/uL (4.0-10.0)
[2019-07-11] MEDS ORDERED: NS 1,000 ML IV ONE ×2 (16:30→17:45)
[2019-07-11] MEDS ORDERED: HumuLIN R (REGULAR) INSULIN (NovoLIN R) **100U/ML** PER UNIT IV ONE (16:30)
[2019-07-11 16:31] LABS: INR 0.94; PARTIAL THROMBOPLASTIN TIME 23.5 SECONDS (25.0-38.4); PROTHROMBIN TIME 12.3 SECONDS (11.8-14.0)
--- NOTE | 2019-07-11 16:40 | REP ---
Clinical: Chest pain. Technique: PA and lateral. Comparison: 06/11/2019. Findings: Mediastinum and cardiac silhouette are normal. The lung burger demonstrate diffuse coarsened interstitial markings subtle infrahilar prominence suggesting bronchitis/early viral pneumonia pattern. No focal consolidation. No effusion. No pneumothorax. Skeletal structures intact. Impression: Cannot exclude mild bronchitis or early viral pneumonia. Electronically Signed by Tariq Mosqueda MD 07/11/2019 04:32 P
[2019-07-11 17:14] LABS: ALBUMIN 3.2 GM/DL (3.2-5.2); ALT/SGPT 19 U/L (12-78); BILIRUBIN,DIRECT 0.1 MG/DL (0.0-0.2); BILIRUBIN,TOTAL 0.3 MG/DL (0.2-1.0); BLOOD UREA NITROGEN 17 MG/DL (7-18); CALCIUM LEVEL 9.2 MG/DL (8.5-10.1); CARBON DIOXIDE LEVEL 31 MEQ/L (21-32); CHLORIDE LEVEL 95 MEQ/L (98-107); CK-MB VALUE MASS 1.8 NG/ML (<3.6); CPK CREATINE PHOSPHOKINASE 91 U/L (39-308); CREATININE FOR GFR 1.29 MG/DL (0.70-1.30); FREE T4 1.08 NG/DL (0.76-1.46); GLOMERULAR FILTRATION RATE > 60.0 (>56); GLUCOSE, FASTING 623 MG/DL (70-100); MB/CK RELATIVE INDEX 1.98 (< OR =4); POTASSIUM SERUM 5.2 MEQ/L (3.5-5.1); SODIUM LEVEL 132 MEQ/L (136-145); THYROID STIMULATING HORMONE 0.573 uIU/ML (0.358-3.740); TOTAL PROTEIN 7.7 GM/DL (6.4-8.2); TROPONIN I < 0.02 NG/ML (< 0.10)
[2019-07-11 17:21] LABS: ACETONE/KETONE 1.68 MG/DL (<2.81); LIPASE 795 U/L (73-393); MAGNESIUM LEVEL 2.3 MG/DL (1.8-2.4); PHOSPHORUS LEVEL 3.9 MG/DL (2.5-4.9)
[2019-07-11 17:23] LABS: VENOUS BASE EXCESS 1.1 (-2.0-2.0); VENOUS HCO3 26.2 MEQ/L (23.0-27.0); VENOUS O2 SATURATION 97.8 % (60.0-80.0); VENOUS PARTIAL PRESSURE CO2 43.5 mmHg (38.0-50.0); VENOUS PARTIAL PRESSURE O2 94.8 mmHg (30.0-50.0); VENOUS PH 7.398 UNITS (7.330-7.430); VENOUS STANDARD HCO3 25.5 MEQ/L; VENOUS TOTAL CO2 27.6 MEQ/L (24.0-28.0)
[2019-07-11] MEDS ORDERED: ISOVUE-370 76% 100ML VIAL (Q9967) As Ordered ONE (17:35)
[2019-07-11 17:48] LABS: OSMOLALITY SERUM 320 MOSM/KG (275-295)
--- NOTE | 2019-07-11 18:49 | REPVR ---
EXAM: CT Abdomen and Pelvis With Contrast EXAM DATE/TIME: 07/11/2019 6:11 PM CLINICAL HISTORY: 54 years old, male; Abdominal pain; Localized; Upper; Additional info: Upper abdominal pain; R/O pancreatitis TECHNIQUE: Imaging protocol: Computed tomography of the abdomen and pelvis with intravenous contrast. Radiation optimization: All CT scans at this facility use at least one of these dose optimization techniques: automated exposure control; mA and/or kV adjustment per patient size (includes targeted exams where dose is matched to clinical indication); or iterative reconstruction. Contrast material: ISOVUE 370; Contrast volume: 100 ml; Contrast route: IV; COMPARISON: CT ABD/PEL W/IV CONTRAST ONLY 05/06/2019 6:08 AM FINDINGS: Mediastinum: Thickened wall distal esophagus may indicate the presence of reflux esophagitis. Clinical correlation to exclude other etiologies suggested. Liver: There is a diffuse decrease in hepatic parenchymal density, consistent with fatty infiltration. Gallbladder and bile ducts: There has been a cholecystectomy. Pancreas: Normal. No ductal dilation. Spleen: Normal. No splenomegaly. Adrenals: Normal. No mass. Kidneys and ureters: Normal. No hydronephrosis. Stomach and bowel: Unremarkable. No obstruction. No mucosal thickening. Appendix: No evidence of appendicitis. Intraperitoneal space: Unremarkable. No free air. No significant fluid collection. Vasculature: Unremarkable. No abdominal aortic aneurysm. Lymph nodes: Unremarkable. No enlarged lymph nodes. Bladder: Unremarkable as visualized. Reproductive: Unremarkable as visualized. Bones/joints: Unremarkable. No acute fracture. Soft tissues: Unremarkable. IMPRESSION: 1. There is a diffuse decrease in hepatic parenchymal density, consistent with fatty infiltration. 2. There has been a cholecystectomy. 3. Thickened wall distal esophagus may indicate the presence of reflux esophagitis. Clinical correlation to exclude other etiologies suggested. Electronically signed by: Rickey Cevallos On 07/11/2019 18:49:14 PM
--- NOTE | 2019-07-11 19:39 | ECGEPIP ---
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
[2019-07-11 20:28] LABS: HEMOGLOBIN A1c 14.8 %
[2019-07-11 21:06] LABS: VENOUS BASE EXCESS -1.7 (-2.0-2.0); VENOUS HCO3 23.8 MEQ/L (23.0-27.0); VENOUS O2 SATURATION 96.5 % (60.0-80.0); VENOUS PARTIAL PRESSURE CO2 43.2 mmHg (38.0-50.0); VENOUS PARTIAL PRESSURE O2 86.5 mmHg (30.0-50.0); VENOUS PH 7.359 UNITS (7.330-7.430); VENOUS TOTAL CO2 25.1 MEQ/L (24.0-28.0)
[2019-07-11 21:15] VITALS: BP 159/91
[2019-07-11 21:31] LABS: BLOOD UREA NITROGEN 14 MG/DL (7-18); CALCIUM LEVEL 8.5 MG/DL (8.5-10.1); CARBON DIOXIDE LEVEL 31 MEQ/L (21-32); CHLORIDE LEVEL 104 MEQ/L (98-107); CREATININE FOR GFR 0.98 MG/DL (0.70-1.30); GLOMERULAR FILTRATION RATE > 60.0 (>56); GLUCOSE, FASTING 344 MG/DL (70-100); POTASSIUM SERUM 4.3 MEQ/L (3.5-5.1); SODIUM LEVEL 138 MEQ/L (136-145)
--- NOTE | 2019-07-12 12:45 | ED PDOC ---
Post-Departure Follow-Up dr bishop faxed formal repot of ct abd/p for fu Ranjit Patterson MD Jul 12, 2019 12:45
== END 2019-07-11 22:38 | disposition home or self-care (01) ==
LOC: EDBD 15:40 → M ED 15:40
DX: R07.89 Other chest pain (principal); E11.9 Type 2 diabetes mellitus without complications; R73.9 Hyperglycemia, unspecified; I10 Essential (primary) hypertension; J98.4 Other disorders of lung; Z87.442 Personal history of urinary calculi; Z91.018 Allergy to other foods; Z91.010 Allergy to peanuts; Z79.899 Other long term (current) drug therapy
CPT/HCPCS: 36415; 71046; 74177; 80048; 80076; 81001; 82010; 82550; 82553; 82803; 83036; 83605; 83690; 83735; 83930; 84100; 84439; 84443; 85025; 85610; 85730; 93005; 93041; 96361; 96374; 99285; Q9967

== ENCOUNTER 2019-07-16 18:11 | Emergency (ER) | payer OTHER ==
[~2019-07-16] VITALS: Ht 170.2 cm; Wt 70.0 kg
[2019-07-16] MEDS ORDERED: NS 1,000 ML IV ONE ×2 (18:45→20:45)
[2019-07-16] MEDS ORDERED: PANTOPRAZOLE 40MG INJ (PROTONIX) (C9113) IV ONE (18:45)
[2019-07-16] MEDS ORDERED: KETOROLAC 30 MG/ML VIAL (J1885) IV ONE ×2 (18:45→20:45)
[2019-07-16] MEDS ORDERED: ONDANSETRON 4MG/2ML VIAL (J2405) IV ONE (18:45)
[2019-07-16] MEDS ORDERED: HumuLIN R (REGULAR) INSULIN (NovoLIN R) **100U/ML** PER UNIT SC STA (19:12)
--- NOTE | 2019-07-16 19:40 | REP ---
Abdomen series: Three views. History: Abdomen pain. Comparison study: July 11, 2019. Findings: EKG monitoring electrodes overlie the chest. The lungs are well inflated and free of infiltrate. There is no evidence of free subdiaphragmatic air. Supine and erect views of the abdomen demonstrate a normal bowel gas pattern. There are clips in right upper quadrant post cholecystectomy. Psoas margins are symmetric. Flank stripes are intact. Impression: Normal bowel gas pattern. No active disease in the chest. Electronically Signed by See Camacho MD 07/17/2019 09:15 A
[2019-07-16 19:52] LABS: BASO # 0.1 10^3/uL (0.0-0.2); BASO % 0.9 % (0.0-1.0); EOS # 0.4 10^3/uL (0.0-0.5); EOS % 4.5 % (0.0-3.0); HEMATOCRIT 36.8 % (42.0-52.0); HEMOGLOBIN 12.9 g/dl (13.5-17.5); LYMPH % 34.7 % (24.0-44.0); MEAN CORPUSCULAR HEMOGLOBIN 27.6 pg (27.0-33.0); MEAN CORPUSCULAR HGB CONC 35.1 g/dl (32.0-36.5); MEAN CORPUSCULAR VOLUME 78.6 fl (80.0-96.0); MONO # 0.6 10^3/uL (0.0-0.8); NEUTROPHILS # 4.6 10^3/uL (1.5-8.5); NEUTROPHILS % 52.8 % (36.0-66.0); PLATELET COUNT, AUTOMATED 207 10^3/uL (150-450); RED BLOOD COUNT 4.68 10^6/uL (4.30-6.10); WHITE BLOOD COUNT 8.7 10^3/uL (4.0-10.0)
[2019-07-16 20:11] LABS: ALBUMIN 3.2 GM/DL (3.2-5.2); ALT/SGPT 19 U/L (12-78); BILIRUBIN,DIRECT < 0.1 MG/DL (0.0-0.2); BILIRUBIN,TOTAL 0.4 MG/DL (0.2-1.0); BLOOD UREA NITROGEN 22 MG/DL (7-18); CALCIUM LEVEL 9.6 MG/DL (8.5-10.1); CARBON DIOXIDE LEVEL 28 MEQ/L (21-32); CHLORIDE LEVEL 97 MEQ/L (98-107); CREATININE FOR GFR 1.31 MG/DL (0.70-1.30); GLOMERULAR FILTRATION RATE > 60.0 (>56); GLUCOSE, FASTING 495 MG/DL (70-100); LIPASE 678 U/L (73-393); SODIUM LEVEL 134 MEQ/L (136-145); TOTAL PROTEIN 7.8 GM/DL (6.4-8.2)
--- NOTE | 2019-07-16 20:41 | ECGEPIP ---
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
[2019-07-16] MEDS ORDERED: HumuLIN R (REGULAR) INSULIN (NovoLIN R) **100U/ML** PER UNIT IV ONE ×2 (20:45→21:45)
[2019-07-16] MEDS ORDERED: MORPHINE 2 MG/ML 1ML SYRINGE (J2270) IV ONE (21:45)
[2019-07-16] MEDS ORDERED: ZOFR4TAB16 PO (22:51)
[2019-07-16] MEDS ORDERED: NAPR-837 PO (22:51)
[2019-07-16 23:14] VITALS: BP 137/86
== END 2019-07-16 23:15 | disposition home or self-care (01) ==
LOC: M ED 18:11
DX: K86.1 Other chronic pancreatitis (principal); R73.9 Hyperglycemia, unspecified; E11.9 Type 2 diabetes mellitus without complications; I10 Essential (primary) hypertension; Z87.442 Personal history of urinary calculi; Z91.018 Allergy to other foods; Z91.010 Allergy to peanuts; Z79.899 Other long term (current) drug therapy; Z79.4 Long term (current) use of insulin
CPT/HCPCS: 74021; 80048; 80076; 83690; 85025; 93005; 96361; 96372; 96374; 96375; 99284; C9113; J1885; J2270; J2405

== ENCOUNTER 2019-07-21 15:28 | Inpatient (IN) | payer OTHER ==
[~2019-07-21] VITALS: Ht 170.2 cm; Wt 78.3 kg
[~2019-07-21 15:28] MED LIST changes: +NAPR-837 PO; -OMEP40CA2 PO; +OMEP40CA97 PO
[2019-07-21 16:00] LABS: BASO # 0.1 10^3/uL (0.0-0.2); BASO % 0.6 % (0.0-1.0); EOS # 0.3 10^3/uL (0.0-0.5); EOS % 2.6 % (0.0-3.0); HEMATOCRIT 34.3 % (42.0-52.0); HEMOGLOBIN 11.9 g/dl (13.5-17.5); LYMPH % 27.5 % (24.0-44.0); MEAN CORPUSCULAR HEMOGLOBIN 27.7 pg (27.0-33.0); MEAN CORPUSCULAR HGB CONC 34.7 g/dl (32.0-36.5); MONO # 0.7 10^3/uL (0.0-0.8); MONO % 6.9 % (0.0-5.0); NEUTROPHILS # 6.7 10^3/uL (1.5-8.5); NEUTROPHILS % 62.1 % (36.0-66.0); PLATELET COUNT, AUTOMATED 209 10^3/uL (150-450); RED BLOOD COUNT 4.29 10^6/uL (4.30-6.10); WHITE BLOOD COUNT 10.8 10^3/uL (4.0-10.0)
[2019-07-21] MEDS ORDERED: NS 1,000 ML IV ONE (16:00)
[2019-07-21 16:01] LABS: VENOUS BASE EXCESS -0.1 (-2.0-2.0); VENOUS HCO3 24.3 MEQ/L (23.0-27.0); VENOUS O2 SATURATION 93.4 % (60.0-80.0); VENOUS PARTIAL PRESSURE CO2 38.6 mmHg (38.0-50.0); VENOUS PARTIAL PRESSURE O2 67.8 mmHg (30.0-50.0); VENOUS PH 7.416 UNITS (7.330-7.430); VENOUS STANDARD HCO3 24.3 MEQ/L; VENOUS TOTAL CO2 25.4 MEQ/L (24.0-28.0)
[2019-07-21 16:27] LABS: ALBUMIN 3.2 GM/DL (3.2-5.2); ALT/SGPT 23 U/L (12-78); BILIRUBIN,DIRECT < 0.1 MG/DL (0.0-0.2); BILIRUBIN,TOTAL 0.4 MG/DL (0.2-1.0); CK-MB VALUE MASS 3.2 NG/ML (<3.6); CPK CREATINE PHOSPHOKINASE 140 U/L (39-308); ETHYL ALCOHOL (ETHANOL) < 0.003 % (0.000-0.010); LIPASE 2284 U/L (73-393); MB/CK RELATIVE INDEX 2.29 (< OR =4); TOTAL PROTEIN 7.5 GM/DL (6.4-8.2); TROPONIN I < 0.02 NG/ML (< 0.10)
[2019-07-21] MEDS ORDERED: HumuLIN R (REGULAR) INSULIN (NovoLIN R) **100U/ML** PER UNIT IV ONE (16:30)
[2019-07-21] MEDS ORDERED: ISOVUE-370 76% 100ML VIAL (Q9967) As Ordered ONE (17:31)
[2019-07-21] MEDS ORDERED: FURO40TA2 PO (18:00)
[2019-07-21] MEDS ORDERED: POTA10CA32 PO (18:00)
[2019-07-21] MEDS ORDERED: NAPR500T6 PO (18:00)
[2019-07-21] MEDS ORDERED: METO25TA4 PO (18:00)
[2019-07-21] MEDS ORDERED: ZOFR4TAB16 PO (18:00)
--- NOTE | 2019-07-21 18:00 | REP ---
CHEST: Two views. COMPARISON: 07/11/2019 There is no evidence of acute infiltrate. No pleural effusion is seen. The heart is normal in size. The mediastinal silhouette is unremarkable. The visualized osseous structures are intact. IMPRESSION: No acute pulmonary disease. Electronically Signed by Brayan Reyes MD 07/23/2019 04:32 P
--- NOTE | 2019-07-21 18:01 | REPVR ---
EXAM: CT Abdomen and Pelvis With Contrast EXAM DATE/TIME: 07/21/2019 5:39 PM CLINICAL HISTORY: 54 years old, male; Abdominal pain; Generalized; Additional info: Abd pain/pancreatitis TECHNIQUE: Imaging protocol: Computed tomography of the abdomen and pelvis with intravenous contrast. Radiation optimization: All CT scans at this facility use at least one of these dose optimization techniques: automated exposure control; mA and/or kV adjustment per patient size (includes targeted exams where dose is matched to clinical indication); or iterative reconstruction. Contrast material: ISOVUE 370; Contrast volume: 100 ml; Contrast route: IV; COMPARISON: CT ABD/PEL W/IV CONTRAST ONLY 07/11/2019 6:11 PM FINDINGS: Lungs: 10 mm groundglass opacity in the right lower lobe appears grossly stable. Small tree in bud opacity right lower lobe likely represents age-indeterminate alveolitis/terminal bronchiolitis. Bronchial wall thickening in the left lower lobe associated with a infiltrate consistent with a small focus of bronchitis and pneumonitis. Mediastinum: There is increased circumferential thickening of the wall of the distal esophagus. There is no hiatal hernia. Liver: There is a diffuse decrease in hepatic parenchymal density, consistent with fatty infiltration. Gallbladder and bile ducts: There has been a cholecystectomy. Pancreas: Normal. No ductal dilation. Spleen: Normal. No splenomegaly. Adrenals: Normal. No mass. Kidneys and ureters: Normal. No hydronephrosis. Stomach and bowel: Mild dilatation of small bowel loops in the left upper quadrant and left midabdomen without evidence of small bowel obstruction. Appendix: No evidence of appendicitis. Intraperitoneal space: Unremarkable. No free air. No significant fluid collection. Vasculature: Unremarkable. No abdominal aortic aneurysm. Lymph nodes: Unremarkable. No enlarged lymph nodes. Bladder: There is mild diffuse thickening of the wall of the bladder without significant perivesicular inflammatory changes. Findings may be related to chronic bladder outlet obstruction however clinical correlation to exclude cystitis suggested. Reproductive: The prostate gland demonstrates mild hyperplasia. Bones/joints: Unremarkable. No acute fracture. Soft tissues: Unremarkable. IMPRESSION: 1. Bronchial wall thickening in the left lower lobe associated with a infiltrate consistent with a small focus of bronchitis and pneumonitis. 2. There is a diffuse decrease in hepatic parenchymal density, consistent with fatty infiltration. 3. There has been a cholecystectomy. 4. Thickened wall of the distal esophagus. Finding may be related to reflux esophagitis however an esophageal neoplasm should be excluded clinically. 5. There is mild diffuse thickening of the wall of the bladder without significant perivesicular inflammatory changes. Findings may be related to chronic bladder outlet obstruction however clinical correlation to exclude cystitis suggested. 6. Mild prostatic hyperplasia. Electronically signed by: Rickey Cevallos On 07/21/2019 18:00:49 PM
[2019-07-21] MEDS ORDERED: ACETAMINOPHEN TAB 650MG DOSE (2X325MG) PO PRN (18:30)
[2019-07-21] MEDS ORDERED: ONDANSETRON 4MG/2ML VIAL (J2405) IV PRN (18:30)
[2019-07-21] MEDS ORDERED: GLUCOSE 4 GM CHEW TABLET PO PRN (18:30)
[2019-07-21] MEDS ORDERED: IPRATROPIUM 0.5MG/ALBUTEROL 2.5MG INH SOL UD 3ML (DUONEB)(J7620) NEB PRN (18:30)
[2019-07-21] MEDS ORDERED: DEXTROSE 50% 50 ML SYRINGE IV PRN (18:30)
[2019-07-21] MEDS ORDERED: MORPHINE 4 MG/ML 1ML VIAL/SYRINGE (J2270) IV PRN (18:30)
[2019-07-21] MEDS ORDERED: GLUCAGON FOR INJ 1 MG VIAL (J1610) SC PRN (18:30)
[2019-07-21] MEDS ORDERED: NAPROXEN 250 MG TAB PO PRN (18:30)
--- NOTE | 2019-07-21 18:38 | HPEPDOC ---
[facility] Medical History & Physical Date of Admission Jul 21, 2019 Date of Service: Jul 21, 2019 History and Physical CHIEF COMPLAINT: Abdominal pain HISTORY OF PRESENT ILLNESS: Patient is 54-year-old male with PMD IDDM non compliant with medications, CAD, HTN presented to the ER with complaints of abdominal pain. Reportedly had SOB at home but is not complaining of that now. He states that he has chronic intermittent pancreatis, cannot remember last episode but this one occurred several days ago. Reported R. sided abdominal pain radiating to the left as well as L. sided pain from the chest down to lower abdomen that is reproducible. Denies any fever, chills, nausea, vomiting or any other complaints. Found to have elevated Lipase in ER along with hyperglycemia to 500s with no AG. Reportedly only take his medications intermittently, no particular reasons why he does not, just does not feel like it. PAST MEDICAL HISTORY: Refer to [facility] PAST SURGICAL HISTORY: Cholecystectomy R. mayorga surgery ERCP SOCIAL HISTORY: Denies tobacco, alcohol or illicit drug use. FAMILY HISTORY: Patient does not know ALLERGIES: Please see below. REVIEW OF SYSTEMS: 10 point review of system negative except as stated in [facility] HOME MEDICATIONS: Please see below. PHYSICAL EXAMINATION: General: No acute distress unless abdominal is palpated, Alert Eyes: Normal sclera, EOMI, ERIKA HENT: Atraumatic, neck supple, moist mucous membranes Cardiovascular: Normal rate, normal rhythm. Pulmonary: Clear to auscultation b/l, no wheezing GI: Soft, generalized tenderness to palpation worse in RLQ. Skin: Warm and dry Neuro: CN grossly intact. No focal deficits. Strengths equal b/l. Psych: oriented x 3 LABORATORY DATA: See below. IMAGING: CT abdomen- pending read MICROBIOLOGY: Please see below. ASSESSMENT AND PLAN: 1. Pancreatitis - chronic in nature. Lipase elevated. - No nausea, vomiting, requesting food. Start on clear liquid diet at this time. - IVF hydration. - Pain control. Zofran PRN for nausea. 2. Chest discomfort - Reproducible. 3. Hyperglycemia 2/2 IDDM - noncompliant, BS normally elevated 300-500s. No AG or acidosis suggestive or DKA. - Given IVF and regular insulin in ER. On toujeo 80 units qHS at home but does not take it regularly. - Start on Levemir 35 units qHS at this time (dose on last admission). Monitor and adjust as needed. - ISS with meals. 4. HTN? - BP slightly elevated now but no anti-hypertensive listed. - Will start on med if needed. Vital Signs Vital Signs Date Time Temp Pulse Resp B/P (MAP) Pulse Ox O2 Delivery O2 Flow Rate FiO2 07/21/19 18:27 89 158/107 (124) 98 Room Air 07/21/19 15:38 98.9 20 Laboratory Data Labs 24H Laboratory Tests 2 07/21/19 15:34: Bedside Glucose (Misc Panel) 508*H 07/21/19 15:41: Immature Granulocyte % (Auto) 0.3, White Blood Count 10.8H, Red Blood Count 4.29L, Hemoglobin 11.9L, Hematocrit 34.3L, Mean Corpuscular Volume 80.0, Mean Corpuscular Hemoglobin 27.7, Mean Corpuscular Hemoglobin Concent 34.7, Red Cell Distribution Width 12.0, Platelet Count 209, Neutrophils (%) (Auto) 62.1, Lymphocytes (%) (Auto) 27.5, Monocytes (%) (Auto) 6.9H, Eosinophils (%) (Auto) 2.6, Basophils (%) (Auto) 0.6, Neutrophils # (Auto) 6.7, Lymphocytes # (Auto) 3.0, Monocytes # (Auto) 0.7, Eosinophils # (Auto) 0.3, Basophils # (Auto) 0.1, Nucleated Red Blood Cells % (auto) 0.0, Blood Gas Bicarbonate Standard 24.3, Venous Blood pH 7.416, Venous Blood Partial Pressure CO2 38.6, Venous Blood Partial Pressure O2 67.8H, Venous Blood Total Carbon Dioxide 25.4, Venous Blood HCO3 24.3, Venous Blood Oxygen Saturation 93.4H, Venous Blood Base Excess -0.1, Aspartate Amino Transf (AST/SGOT) 18, Alanine Aminotransferase (ALT/SGPT) 23, Alkaline Phosphatase 87, Total Bilirubin 0.4, Direct Bilirubin < 0.1, Total Creatine Kinase 140, Creatine Kinase MB 3.2, Creatine Kinase MB Relative Index 2.29, Troponin I < 0.02, Total Protein 7.5, Albumin 3.2, Albumin/Globulin Ratio 0.74L, Lipase 2284H, Ethyl Alcohol Level < 0.003 07/21/19 16:07: POC Glucose (Misc Panel) 559*H, POC Sodium (Misc Panel) 132L, POC Potassium (Misc Panel) 4.6, POC Chloride (Misc Panel) 95L, POC Total CO2 (Misc Panel) 27.0, POC Blood Urea Nitrogen (Misc Panel 12, POC Ionized Calcium (Misc Panel) 4.5, POC Creatinine (Misc Panel) 0.9, POC Hematocrit (Misc Panel) 33.0L CBC/BMP Laboratory Tests 07/21/19 15:41 Red Blood Count 4.29 L, Mean Corpuscular Volume 80.0, Mean Corpuscular Hemoglobin 27.7, Mean Corpuscular Hemoglobin Concent 34.7, Red Cell Distribution Width 12.0, Neutrophils (%) (Auto) 62.1, Lymphocytes (%) (Auto) 27.5, Monocytes (%) (Auto) 6.9 H, Eosinophils (%) (Auto) 2.6, Basophils (%) (Auto) 0.6, N eutrophils # (Auto) 6.7, Lymphocytes # (Auto) 3.0, Monocytes # (Auto) 0.7, Eosinophils # (Auto) 0.3, Basophils # (Auto) 0.1 Home Medications Scheduled Atorvastatin Calcium (Atorvastatin Calcium) 40 Mg Tab, 40 MG PO QHS Ergocalciferol (Vitamin D2) (Vitamin D2) 50,000 Unit Cap, 50,000 UNIT PO QWEEK TAKES ON SATURDAY MORNING Fenofibrate (Fenofibrate) 160 Mg Tab, 160 MG PO QHS Furosemide (Furosemide) 40 Mg Tablet, 40 MG PO DAILY Gabapentin (Gabapentin) 800 Mg Tab, 800 MG PO QID Insulin Glargine,Hum.rec.anlog (Toaletha Solostar) 300 Unit/Ml Inj, 80 UNIT SC DAILY HAS NOT FILLED SINCE OCTOBER 2018 Insulin Lispro (Admelog) 100 Unit/Ml Inj, 2-14 UNIT SC ACHS PER SLIDING SCALE Lisinopril (Lisinopril) 40 Mg Tab, 40 MG PO DAILY Metformin HCl (Metformin HCl) 500 Mg Tab, 500 MG PO WM Metoprolol Tartrate (Metoprolol Tartrate) 25 Mg Tablet, 25 MG PO DAILY Nortriptyline HCl (Nortriptyline HCl) 50 Mg Cap, 50 MG PO QHS Omeprazole (Omeprazole) 40 Mg Cap, 40 MG PO DAILY Potassium Chloride (Potassium Chloride) 10 Meq Capsule.er, 10 MEQ PO DAILY Scheduled PRN Naproxen (Naproxen) 500 Mg Tablet.dr, 500 MG PO BID PRN for PAIN Ondansetron HCl (Zofran) 4 Mg Tablet, 4 MG PO Q6H PRN for NAUSEA OR VOMITING Tramadol HCl (Tramadol HCl) 50 Mg Tab, 50 MG PO Q6H PRN for PAIN Allergies Coded Allergies: Olives (Verified Allergy, Severe, THROAT CLOSES/SWELLING , 12/23/18) Peanut (Verified Allergy, Severe, PEANUT OIL/BUTTER=THROAT CLOSES/DYSPNEA, 12/23/18) Grass (Verified Allergy, Mild, 07/21/19) SEASONAL ALLERGIES (Verified Allergy, Mild, 07/21/19) A-FIB/CHADSVASC A-FIB History Current/History of A-Fib/PAF?: No GM GOMEZ MD Jul 21, 2019 18:38
--- NOTE | 2019-07-21 19:25 | ECGEPIP ---
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
[2019-07-21 20:00] VITALS: BP 141/91
[2019-07-21] MEDS: GABAPENTIN 400 MG CAP PO SCH (20:30)
[2019-07-21] MEDS: NS 1,000 ML IV SCH (20:30)
[2019-07-21] MEDS: ATORVASTATIN 20 MG TAB PO SCH (20:30)
[2019-07-21] MEDS ORDERED: LEVEMIR (INSULIN DETEMIR) 1 UNITS/0.01ML SC ONE (21:00)
[2019-07-21] MEDS: NORTRIPTYLINE 25 MG CAP PO SCH (21:31)
[2019-07-21] MEDS ORDERED: HumaLOG INSULIN (NovoLOG) PER UNIT SC STA (21:58)
[2019-07-22] MEDS: NS 1,000 ML IV SCH ×3 (00:54→08:46)
[2019-07-22 04:00] VITALS: BP 137/88
--- NOTE | 2019-07-22 08:35 | IPNPDOC ---
Subjective Date Seen The patient was seen on 07/22/19. Subjective Chief Complaint/HPI Patient lying in bed comfortably as I entered the room. He reports his abdominal pain to be much improved from onset Constitutional: Denies: Chills, Fever Pulmonary: Denies: Cough Cardiovascular: Denies: Chest Pain, Edema Gastrointestinal: Denies: Nausea, Vomiting, Abdominal Pain Psych: Reports: Mood Normal Objective Physical Examination General Exam: Positive: Alert, Cooperative, No Acute Distress Neck Exam: Positive: Supple Chest Exam: Positive: Clear to auscultation, Normal air movement; Negative: Rales, Rhonchi, Wheezing Heart Exam: Positive: Rate Normal Abdomen Exam: Positive: Normal bowel sounds, Soft; Negative: Tenderness Psych Exam: Positive: Mood NL Assessment /Plan Problems (1) Pancreatitis Status: Acute Response to Treatment: Stable Problem Text: 07/22/19: Pain well controlled at present. IV hydration. BGs under better control. Patient on clear liquid diet and will advance as tolerated (2) Uncontrolled type 2 diabetes mellitus Status: Chronic Problem Text: 07/22/19: Medication compliance is an issue outpatient. BG this morning 259, down from 505. He is on basal bolus regimen. We will continue to monitor (3) Hyperglycemia Status: Acute Response to Treatment: Improving (4) HTN (hypertension) Status: Chronic Response to Treatment: Stable Problem Text: 07/22/19: Pressures are improved this morning, Lisinopril 40mg daily and Metoprolol 25 mg daily Plan/VTE VTE Prophylaxis Ordered?: Yes (Lovenox) VS, I&O, 24H, Fishbone Vital Signs/I&O Vital Signs Date Time Temp Pulse Resp B/P (MAP) Pulse Ox O2 Delivery O2 Flow Rate FiO2 07/22/19 04:00 97.4 89 18 137/88 (104) 95 07/21/19 18:27 Room Air I&O- Last 24 Hours up to 6 AM 07/22/19 06:00 Intake Total 2000 ml Balance 2000 ml Laboratory Data 24H LABS Laboratory Tests 2 07/21/19 15:34: Bedside Glucose (Misc Panel) 508*H 07/21/19 15:41: Immature Granulocyte % (Auto) 0.3, White Blood Count 10.8H, Red Blood Count 4.29L, Hemoglobin 11.9L, Hematocrit 34.3L, Mean Corpuscular Volume 80.0, Mean Corpuscular Hemoglobin 27.7, Mean Corpuscular Hemoglobin Concent 34.7, Red Cell Distribution Width 12.0, Platelet Count 209, Neutrophils (%) (Auto) 62.1, Lymphocytes (%) (Auto) 27.5, Monocytes (%) (Auto) 6.9H, Eosinophils (%) (Auto) 2.6, Basophils (%) (Auto) 0.6, Neutrophils # (Auto) 6.7, Lymphocytes # (Auto) 3.0, Monocytes # (Auto) 0.7, Eosinophils # (Auto) 0.3, Basophils # (Auto) 0.1, Nucleated Red Blood Cells % (auto) 0.0, Blood Gas Bicarbonate Standard 24.3, Venous Blood pH 7.416, Venous Blood Partial Pressure CO2 38.6, Venous Blood Partial Pressure O2 67.8H, Venous Blood Total Carbon Dioxide 25.4, Venous Blood HCO3 24.3, Venous Blood Oxygen Saturation 93.4H, Venous Blood Base Excess -0.1, Aspartate Amino Transf (AST/SGOT) 18, Alanine Aminotransferase (ALT/SGPT) 23, Alkaline Phosphatase 87, Total Bilirubin 0.4, Direct Bilirubin < 0.1, Total Creatine Kinase 140, Creatine Kinase MB 3.2, Creatine Kinase MB Relative Index 2.29, Troponin I < 0.02, Total Protein 7.5, Albumin 3.2, Albumin/Globulin Ratio 0.74L, Lipase 2284H, Ethyl Alcohol Level < 0.003 07/21/19 16:07: POC Glucose (Misc Panel) 559*H, POC Sodium (Misc Panel) 132L, POC Potassium (Misc Panel) 4.6, POC Chloride (Misc Panel) 95L, POC Total CO2 (Misc Panel) 27.0, POC Blood Urea Nitrogen (Misc Panel 12, POC Ionized Calcium (Misc Panel) 4.5, POC Creatinine (Misc Panel) 0.9, POC Hematocrit (Misc Panel) 33.0L 07/21/19 20:08: Bedside Glucose (Misc Panel) 358H 07/22/19 06:50: Bedside Glucose (Misc Panel) 259H CBC/BMP Laboratory Tests 07/21/19 15:41 Red Blood Count 4.29 L, Mean Corpuscular Volume 80.0, Mean Corpuscular Hemoglobin 27.7, Mean Corpuscular Hemoglobin Concent 34.7, Red Cell Distribution Width 12.0, Neutrophils (%) (Auto) 62.1, Lymphocytes (%) (Auto) 27.5, Monocytes (%) (Auto) 6.9 H, Eosinophils (%) (Auto) 2.6, Basophils (%) (Auto) 0.6, Neutrophils # (Auto) 6.7, Lymphocytes # (Auto) 3.0, Monocytes # (Auto) 0.7, Eosinophils # (Auto) 0.3, Basophils # (Auto) 0.1 Attending Note Attending Note patient requests DNR status. MOLST reviewed with patient and signed indicating DNR but does desire agressive treatment including intubation, etc. MAUREEN BONNER Jul 22, 2019 08:35 Mynor Hernandez MD Jul 22, 2019 10:49
[2019-07-22] MEDS: OMEPRAZOLE 20 MG CAP PO SCH (08:45)
[2019-07-22] MEDS: lisinopriL 40 MG TAB PO SCH (08:45)
[2019-07-22] MEDS: POTASSIUM CHLORIDE 10 MEQ SR TABLET PO SCH (08:45)
[2019-07-22] MEDS: GABAPENTIN 400 MG CAP PO SCH ×4 (08:45→20:22)
[2019-07-22] MEDS: HumaLOG INSULIN (NovoLOG) PER UNIT SC SCH ×3 (08:45→17:14)
[2019-07-22] MEDS: ENOXAPARIN 40 MG/0.4 ML SYRINGE (J1650) SC SCH (08:45)
[2019-07-22 08:58] LABS: HEMATOCRIT 34.1 % (42.0-52.0); HEMOGLOBIN 11.7 g/dl (13.5-17.5); MEAN CORPUSCULAR HEMOGLOBIN 27.8 pg (27.0-33.0); MEAN CORPUSCULAR HGB CONC 34.3 g/dl (32.0-36.5); PLATELET COUNT, AUTOMATED 203 10^3/uL (150-450); RED BLOOD COUNT 4.21 10^6/uL (4.30-6.10); WHITE BLOOD COUNT 8.6 10^3/uL (4.0-10.0)
[2019-07-22] MEDS ORDERED: METOPROLOL TART 25 MG TABLET PO SCH (09:00)
[2019-07-22 09:25] LABS: BLOOD UREA NITROGEN 7 MG/DL (7-18); CALCIUM LEVEL 8.3 MG/DL (8.5-10.1); CARBON DIOXIDE LEVEL 25 MEQ/L (21-32); CHLORIDE LEVEL 106 MEQ/L (98-107); CREATININE FOR GFR 0.89 MG/DL (0.70-1.30); GLOMERULAR FILTRATION RATE > 60.0 (>56); GLUCOSE, FASTING 303 MG/DL (70-100); MAGNESIUM LEVEL 1.9 MG/DL (1.8-2.4); SODIUM LEVEL 137 MEQ/L (136-145)
[2019-07-22 12:00] VITALS: BP 111/73
[2019-07-22 20:00] VITALS: BP 118/73
[2019-07-22] MEDS: NORTRIPTYLINE 25 MG CAP PO SCH (20:22)
[2019-07-22] MEDS: ATORVASTATIN 20 MG TAB PO SCH (20:23)
[2019-07-22] MEDS ORDERED: LEVEMIR (INSULIN DETEMIR) 1 UNITS/0.01ML SC SCH (21:00)
[2019-07-23 07:09] LABS: HEMOGLOBIN 10.6 g/dl (13.5-17.5); MEAN CORPUSCULAR HEMOGLOBIN 27.7 pg (27.0-33.0); MEAN CORPUSCULAR HGB CONC 34.2 g/dl (32.0-36.5); MEAN CORPUSCULAR VOLUME 80.9 fl (80.0-96.0); PLATELET COUNT, AUTOMATED 200 10^3/uL (150-450); RED BLOOD COUNT 3.83 10^6/uL (4.30-6.10); WHITE BLOOD COUNT 8.1 10^3/uL (4.0-10.0)
[2019-07-23 07:36] LABS: BLOOD UREA NITROGEN 8 MG/DL (7-18); CALCIUM LEVEL 8.4 MG/DL (8.5-10.1); CARBON DIOXIDE LEVEL 25 MEQ/L (21-32); CHLORIDE LEVEL 107 MEQ/L (98-107); CREATININE FOR GFR 1.09 MG/DL (0.70-1.30); GLOMERULAR FILTRATION RATE > 60.0 (>56); GLUCOSE, FASTING 305 MG/DL (70-100); LIPASE 218 U/L (73-393); POTASSIUM SERUM 3.9 MEQ/L (3.5-5.1); SODIUM LEVEL 139 MEQ/L (136-145)
[2019-07-23 07:54] VITALS: BP 158/92
[2019-07-23] MEDS: POTASSIUM CHLORIDE 10 MEQ SR TABLET PO SCH (08:22)
[2019-07-23] MEDS: lisinopriL 40 MG TAB PO SCH (08:22)
[2019-07-23] MEDS: METOPROLOL SUCC *XL* 25MG TAB (TopROL *XL*) PO SCH (08:22)
[2019-07-23] MEDS: GABAPENTIN 400 MG CAP PO SCH ×4 (08:23→20:32)
[2019-07-23] MEDS: ENOXAPARIN 40 MG/0.4 ML SYRINGE (J1650) SC SCH (08:23)
[2019-07-23] MEDS: OMEPRAZOLE 20 MG CAP PO SCH (08:23)
[2019-07-23] MEDS: HumaLOG INSULIN (NovoLOG) PER UNIT SC SCH ×3 (08:24→17:53)
[2019-07-23] MEDS ORDERED: FLUBLOK(EGG FREE)(QUAD)INFLUENZA VACC 0.5ML SYRINGE (90682)18YRS&OLDER IM ONE (09:00)
--- NOTE | 2019-07-23 09:47 | IPNPDOC ---
Subjective Date Seen The patient was seen on 07/23/19. Subjective Chief Complaint/HPI The patient is sitting comfortably at bedside as I entered the room. He has advanced his diet and is abdominal pain has lessened Constitutional: Denies: Chills, Fever Pulmonary: Denies: Cough Gastrointestinal: Denies: Nausea, Vomiting, Abdominal Pain Psych: Reports: Mood Normal Objective Physical Examination General Exam: Positive: Alert, Cooperative, No Acute Distress Neck Exam: Positive: Supple Chest Exam: Positive: Clear to auscultation, Normal air movement; Negative: Rales, Rhonchi, Wheezing Heart Exam: Positive: Rate Normal Abdomen Exam: Positive: Normal bowel sounds, Soft; Negative: Tenderness Psych Exam: Positive: Mood NL Assessment /Plan Problems (1) Pancreatitis Status: Acute Response to Treatment: Stable Problem Text: 07/23/19: Improving. IVF stopped yesterday. We will continue to work on improving his DM control 07/22/19: Pain well controlled at present. IV hydration. BGs under better control. Patient on clear liquid diet and will advance as tolerated (2) Uncontrolled type 2 diabetes mellitus Status: Chronic Problem Text: 07/23/19: We will continue to titrate his insulin and monitor 07/22/19: Medication compliance is an issue outpatient. BG this morning 259, down from 505. He is on basal bolus regimen. We will continue to monitor (3) Hyperglycemia Status: Acute Response to Treatment: Improving Problem Text: 07/23/19: Increase Levemir 45 units today (4) HTN (hypertension) Status: Chronic Response to Treatment: Stable Problem Text: 07/22/19: Pressures are improved this morning, Lisinopril 40mg daily and Metoprolol 25 mg daily Plan/VTE VTE Prophylaxis Ordered?: Yes (Lovenox) VS, [facility]&O, [facility] Vital Signs/I&O Vital Signs Date Time Temp Pulse Resp B/P (MAP) Pulse Ox O2 Delivery O2 Flow Rate FiO2 07/23/19 08:22 100 158/92 07/23/19 07:54 18 07/22/19 20:00 98.9 94 07/21/19 18:27 Room Air I&O- Last 24 Hours up to 6 AM 07/23/19 06:00 Intake Total 2440 ml Output Total 2275 ml Balance 165 ml Laboratory Data 24H LABS Laboratory Tests 2 07/22/19 11:35: Bedside Glucose (Misc Panel) 331H 07/22/19 16:44: Bedside Glucose (Misc Panel) 252H 07/22/19 20:04: Bedside Glucose (Misc Panel) 298H 07/23/19 06:41: Nucleated Red Blood Cells % (auto) 0.0, Anion Gap 7L, Glomerular Filtration Rate > 60.0, Blood Urea Nitrogen 8, Creatinine 1.09, Sodium Level 139, Potassium Level 3.9, Chloride Level 107, Carbon Dioxide Level 25, Calcium Level 8.4L, Lipase 218 CBC/BMP Laboratory Tests 07/23/19 06:41 Red Blood Count 3.83 L, Mean Corpuscular Volume 80.9, Mean Corpuscular Hemoglobin 27.7, Mean Corpuscular Hemoglobin Concent 34.2, Red Cell Distribution Width 11.9, Calcium Level 8.4 L MAUREEN BONNER [facility] Jul 23, 2019 09:47
[2019-07-23 14:00] VITALS: BP 136/85
[2019-07-23 15:00] VITALS: BP 143/94
[2019-07-23] MEDS: ATORVASTATIN 20 MG TAB PO SCH (20:32)
[2019-07-23] MEDS: NORTRIPTYLINE 25 MG CAP PO SCH (20:32)
[2019-07-23] MEDS ORDERED: LEVEMIR (INSULIN DETEMIR) 1 UNITS/0.01ML SC SCH (21:00)
[2019-07-23 21:16] VITALS: BP 144/94
[2019-07-24 06:55] VITALS: BP 138/88
--- NOTE | 2019-07-24 07:45 | IPNPDOC ---
Subjective Date Seen The patient was seen on 07/24/19. Subjective Chief Complaint/HPI Patient reports continued mild abdominal pain. He is eating regular meals Constitutional: Denies: Chills, Fever Pulmonary: Denies: Dyspnea, Cough Cardiovascular: Denies: Chest Pain, Palpitations, Orthopnea, Edema Gastrointestinal: Reports: Abdominal Pain (Mild ); Denies: Nausea, Vomiting, Diarrhea, Constipation Psych: Reports: Mood Normal Objective Physical Examination General Exam: Positive: Alert, Cooperative, No Acute Distress Neck Exam: Positive: Supple Chest Exam: Positive: Clear to auscultation, Normal air movement; Negative: Rales, Rhonchi, Wheezing Heart Exam: Positive: Rate Normal Abdomen Exam: Positive: Normal bowel sounds, Soft; Negative: Tenderness Psych Exam: Positive: Mood NL Assessment /Plan Problems (1) Pancreatitis Status: Acute Response to Treatment: Stable Problem Text: 07/24/19: Patient continues to improve slowly. He has been able to advance his diet. Afebrile. Patient has not needed medication for pain control. Labs pending. Hopeful for discharge tomorrow 07/23/19: Improving. IVF stopped yesterday. We will continue to work on improving his DM control 07/22/19: Pain well controlled at present. IV hydration. BGs under better control. Patient on clear liquid diet and will advance as tolerated (2) Uncontrolled type 2 diabetes mellitus Status: Chronic Problem Text: 07/24/19: Most recent BG 313. Labs pending. Basal insulin was increased to 45 units 07/23/19: We will continue to titrate his insulin and monitor 07/22/19: Medication compliance is an issue outpatient. BG this morning 259, down from 505. He is on basal bolus regimen. We will continue to monitor (3) Hyperglycemia Status: Acute Response to Treatment: Improving Problem Text: 07/23/19: Increase Levemir 45 units today (4) HTN (hypertension) Status: Chronic Response to Treatment: Stable Problem Text: 07/24/19: Pressures well controlled 07/22/19: Pressures are improved this morning, Lisinopril 40mg daily and Metoprolol 25 mg daily Plan/VTE VTE Prophylaxis Ordered?: Yes (Lovenox) VS, I&O, 24H, Fishbone Vital Signs/I&O Vital Signs Date Time Temp Pulse Resp B/P (MAP) Pulse Ox O2 Delivery O2 Flow Rate FiO2 07/23/19 21:16 98.6 97 18 144/94 (111) 92 07/21/19 18:27 Room Air I&O- Last 24 Hours up to 6 AM 07/24/19 06:00 Intake Total 1850 ml Output Total 1300 ml Balance 550 ml Laboratory Data 24H LABS Laboratory Tests 2 07/23/19 11:55: Bedside Glucose (Misc Panel) 229H 07/23/19 16:42: Bedside Glucose (Misc Panel) 214H 07/23/19 21:14: Bedside Glucose (Misc Panel) 313H MAUREEN BONNER [facility] Jul 24, 2019 07:45
[2019-07-24 08:25] LABS: HEMOGLOBIN 11.1 g/dl (13.5-17.5); MEAN CORPUSCULAR HEMOGLOBIN 28.5 pg (27.0-33.0); MEAN CORPUSCULAR HGB CONC 34.7 g/dl (32.0-36.5); MEAN CORPUSCULAR VOLUME 82.3 fl (80.0-96.0); PLATELET COUNT, AUTOMATED 197 10^3/uL (150-450); RED BLOOD COUNT 3.89 10^6/uL (4.30-6.10); WHITE BLOOD COUNT 9.9 10^3/uL (4.0-10.0)
[2019-07-24 08:42] LABS: BLOOD UREA NITROGEN 7 MG/DL (7-18); CALCIUM LEVEL 8.7 MG/DL (8.5-10.1); CARBON DIOXIDE LEVEL 26 MEQ/L (21-32); CHLORIDE LEVEL 103 MEQ/L (98-107); CREATININE FOR GFR 1.01 MG/DL (0.70-1.30); GLOMERULAR FILTRATION RATE > 60.0 (>56); GLUCOSE, FASTING 243 MG/DL (70-100); POTASSIUM SERUM 3.6 MEQ/L (3.5-5.1); SODIUM LEVEL 138 MEQ/L (136-145)
[2019-07-24] MEDS: OMEPRAZOLE 20 MG CAP PO SCH (09:01)
[2019-07-24] MEDS: GABAPENTIN 400 MG CAP PO SCH ×4 (09:01→20:06)
[2019-07-24] MEDS: POTASSIUM CHLORIDE 10 MEQ SR TABLET PO SCH (09:01)
[2019-07-24] MEDS: lisinopriL 40 MG TAB PO SCH (09:01)
[2019-07-24] MEDS: METOPROLOL SUCC *XL* 25MG TAB (TopROL *XL*) PO SCH (09:01)
[2019-07-24] MEDS: HumaLOG INSULIN (NovoLOG) PER UNIT SC SCH ×3 (09:02→17:45)
[2019-07-24] MEDS: ENOXAPARIN 40 MG/0.4 ML SYRINGE (J1650) SC SCH (09:03)
[2019-07-24] MEDS ORDERED: AMLO25TA PO (09:05)
--- NOTE | 2019-07-24 10:38 | IPNPDOC ---
Subjective Date Seen The patient was seen on 07/24/19. Subjective Chief Complaint/HPI Fall after being seen this am by A SATYA Randhawa. Reports pain at left wrist. Constitutional: Denies: Chills ENT: Denies: Head Aches Pulmonary: Denies: Dyspnea Cardiovascular: Denies: Chest Pain, Orthopnea Gastrointestinal: Denies: Nausea, Vomiting Hematologic: Denies: Bruising Musculoskeletal: Denies: Neck Pain Objective Physical Examination General Exam: Positive: Alert, Cooperative, No Acute Distress Neck Exam: Positive: Supple Chest Exam: Positive: Clear to auscultation, Normal air movement; Negative: Rales, Rhonchi, Wheezing Heart Exam: Positive: Rate Normal Abdomen Exam: Positive: Normal bowel sounds, Soft; Negative: Tenderness Extremity Exam: Positive: Tenderness (Left wrist w/o deformity.) Neuro Exam: Positive: Other (uses walker to ambulate. ) Psych Exam: Positive: Mood NL Assessment /Plan Problems (1) Pancreatitis Status: Acute Response to Treatment: Stable Problem Text: 07/24/19: Patient continues to improve slowly. He has been able to advance his diet. Afebrile. Patient has not needed medication for pain control. Labs pending. Hopeful for discharge tomorrow 07/23/19: Improving. IVF stopped yesterday. We will continue to work on improving his DM control 07/22/19: Pain well controlled at present. IV hydration. BGs under better control. Patient on clear liquid diet and will advance as tolerated (2) Uncontrolled type 2 diabetes mellitus Status: Chronic Problem Text: 07/24/19: Most recent BG 313. Labs pending. Basal insulin was increased to 45 units 07/23/19: We will continue to titrate his insulin and monitor 07/22/19: Medication compliance is an issue outpatient. BG this morning 259, down from 505. He is on basal bolus regimen. We will continue to monitor (3) Hyperglycemia Status: Acute Response to Treatment: Improving Problem Text: 07/24/19: Increase to 50 qhs 07/23/19: Increase Levemir 45 units today (4) HTN (hypertension) Status: Chronic Response to Treatment: Stable Problem Text: 07/24/19: Pressures well controlled 07/22/19: Pressures are improved this morning, Lisinopril 40mg daily and Metoprolol 25 mg daily (5) Gait instability Status: Chronic Response to Treatment: Stable Problem Text: PT eval and treat requested. Likely sequela of previous stroke (6) Left wrist pain Status: Acute Response to Treatment: Worse Problem Text: Fell this am reports left wrist pain.. Xray ordered. Plan/VTE VTE Prophylaxis Ordered?: Yes (Lovenox) VS, I&O, 24H, Fishbone Vital Signs/I&O Vital Signs Date Time Temp Pulse Resp B/P (MAP) Pulse Ox O2 Delivery O2 Flow Rate FiO2 07/24/19 09:01 105 138/88 07/24/19 06:55 98.1 17 95 07/21/19 18:27 Room Air I&O- Last 24 Hours up to 6 AM 07/24/19 05:59 Intake Total 1850 ml Output Total 1300 ml Balance 550 ml Laboratory Data 24H LABS Laboratory Tests 2 07/23/19 11:55: Bedside Glucose (Misc Panel) 229H 07/23/19 16:42: Bedside Glucose (Misc Panel) 214H 07/23/19 21:14: Bedside Glucose (Misc Panel) 313H 07/24/19 08:01: Nucleated Red Blood Cells % (auto) 0.0, Anion Gap 9, Glomerular Filtration Rate > 60.0, Blood Urea Nitrogen 7, Creatinine 1.01, Sodium Level 138, Potassium Level 3.6, Chloride Level 103, Carbon Dioxide Level 26, Calcium Level 8.7 CBC/BMP Laboratory Tests 07/24/19 08:01 Red Blood Count 3.89 L, Mean Corpuscular Volume 82.3, Mean Corpuscular Hemoglo bin 28.5, Mean Corpuscular Hemoglobin Concent 34.7, Red Cell Distribution Width 11.9, Calcium Level 8.7 Mynor Hernandez MD Jul 24, 2019 10:37
--- NOTE | 2019-07-24 11:30 | REP ---
LEFT WRIST, FOUR VIEWS: There is no evidence of an acute fracture, dislocation or intrinsic bone disease. IMPRESSION: No fracture or dislocation. Electronically Signed by Brayan Reyes MD 07/24/2019 06:43 P
[2019-07-24 14:04] VITALS: BP 137/92
[2019-07-24] MEDS: ATORVASTATIN 20 MG TAB PO SCH (20:06)
[2019-07-24] MEDS: NORTRIPTYLINE 25 MG CAP PO SCH (20:06)
[2019-07-24] MEDS ORDERED: LEVEMIR (INSULIN DETEMIR) 1 UNITS/0.01ML SC SCH (21:00)
[2019-07-24 22:00] VITALS: BP 131/91
[2019-07-25 05:05] VITALS: BP 133/92
[2019-07-25 06:00] VITALS: BP 130/82
[2019-07-25 06:32] LABS: HEMATOCRIT 30.4 % (42.0-52.0); HEMOGLOBIN 10.6 g/dl (13.5-17.5); MEAN CORPUSCULAR HEMOGLOBIN 28.3 pg (27.0-33.0); MEAN CORPUSCULAR HGB CONC 34.9 g/dl (32.0-36.5); MEAN CORPUSCULAR VOLUME 81.3 fl (80.0-96.0); PLATELET COUNT, AUTOMATED 207 10^3/uL (150-450); RED BLOOD COUNT 3.74 10^6/uL (4.30-6.10); WHITE BLOOD COUNT 9.3 10^3/uL (4.0-10.0)
[2019-07-25 06:55] LABS: BLOOD UREA NITROGEN 10 MG/DL (7-18); CALCIUM LEVEL 8.6 MG/DL (8.5-10.1); CARBON DIOXIDE LEVEL 28 MEQ/L (21-32); CHLORIDE LEVEL 102 MEQ/L (98-107); CREATININE FOR GFR 0.98 MG/DL (0.70-1.30); GLOMERULAR FILTRATION RATE > 60.0 (>56); GLUCOSE, FASTING 271 MG/DL (70-100); POTASSIUM SERUM 3.8 MEQ/L (3.5-5.1); SODIUM LEVEL 139 MEQ/L (136-145)
[2019-07-25] MEDS: HumaLOG INSULIN (NovoLOG) PER UNIT SC SCH ×4 (08:14→21:18)
[2019-07-25] MEDS: ENOXAPARIN 40 MG/0.4 ML SYRINGE (J1650) SC SCH (08:14)
[2019-07-25] MEDS: POTASSIUM CHLORIDE 10 MEQ SR TABLET PO SCH (08:15)
[2019-07-25] MEDS: OMEPRAZOLE 20 MG CAP PO SCH (08:15)
[2019-07-25] MEDS: lisinopriL 40 MG TAB PO SCH (08:16)
[2019-07-25] MEDS: GABAPENTIN 400 MG CAP PO SCH ×4 (08:16→21:18)
[2019-07-25] MEDS: METOPROLOL SUCC *XL* 25MG TAB (TopROL *XL*) PO SCH (08:16)
[2019-07-25 09:44] VITALS: BP 146/103
[2019-07-25 09:58] VITALS: BP 142/102
--- NOTE | 2019-07-25 13:33 | IPNPDOC ---
Subjective Date Seen The patient was seen on 07/25/19. Subjective Chief Complaint/HPI Nursing reports that he had an unresponsive spell earlier this morning. It was not a seizure; he was not postictal. His blood sugar was actually a little high at the time. His vitals were all stable. They suspect it may relate to his concerned about having to go home, however, he does not want to live in an institution either. When I asked the patient for more clarification he did not have any details to add and seemed to want to change the subject. General: Reports: Normal Appetite Constitutional: Denies: Chills, Fever Pulmonary: Reports: Cough (productive of yellow sputum) Cardiovascular: Denies: Chest Pain, Palpitations Objective Physical Examination General Exam: Positive: Alert, Cooperative, No Acute Distress Eye Exam: Positive: Conjunctiva & lids normal; Negative: Sclera icteric ENT Exam: Positive: Mucous membr. moist/pink Neck Exam: Positive: Supple Chest Exam: Positive: Clear to auscultation, Normal air movement; Negative: Rales, Rhonchi, Wheezing Heart Exam: Positive: Rate Normal Abdomen Exam: Positive: Normal bowel sounds, Soft; Negative: Tenderness Extremity Exam: Negative: Edema Psych Exam: Positive: Mood NL Assessment /Plan Problems (1) Uncontrolled type 2 diabetes mellitus Status: Chronic Problem Text: 07/25: Remains hyperglycemic. He used 30 units of sliding scale insulin over the last 24 hours. Therefore, I will add 15 units to his basal insulin for a total of 65 units of basal insulin this evening and continue the sliding scale. 07/24/19: Most recent BG 313. Labs pending. Basal insulin was increased to 45 units 07/23/19: We will continue to titrate his insulin and monitor 07/22/19: Medication compliance is an issue outpatient. BG this morning 259, down from 505. He is on basal bolus regimen. We will continue to monitor (2) Gait instability Status: Chronic Response to Treatment: Stable Problem Text: 07/25: His PT goal is home. He is listed as not safe for home yet. I explained to him that we will work on getting him moving better over the weekend. If we are not able to get him to the point where he can be safe at home by Saturday he will need to be changed to SNF status for further rehabilitation. This seemed to provide him some motivation to get up and walk with the nurses in order to get home. PT eval and treat requested. Likely sequela of previous stroke (3) HTN (hypertension) Status: Chronic Response to Treatment: Stable Problem Text: 07/25: His blood pressures are reasonably controlled. Continue current regimen, monitor. 07/24/19: Pressures well controlled 07/22/19: Pressures are improved this morning, Lisinopril 40mg daily and Metoprolol 25 mg daily (4) Pancreatitis Status: Resolved Response to Treatment: Stable Problem Text: 07/24/19: Patient continues to improve slowly. He has been able to advance his diet. Afebrile. Patient has not needed medication for pain control. Labs pending. Hopeful for discharge tomorrow 07/23/19: Improving. IVF stopped yesterday. We will continue to work on improving his DM control 07/22/19: Pain well controlled at present. IV hydration. BGs under better control. Patient on clear liquid diet and will advance as tolerated (5) Left wrist pain Status: Resolved Response to Treatment: Improving, Worse Problem Text: 07/25: The x-ray is negative. He did not mention this is a concern today. Fell this am reports left wrist pain.. Xray ordered. Plan/VTE VTE Prophylaxis Ordered?: Yes (Lovenox) Plan Anticipated Discharge: Home (07/27) VS, I&O, 24H, Roberto Vital Signs/I&O Vital Signs Date Time Temp Pulse Resp B/P (MAP) Pulse Ox O2 Delivery O2 Flow Rate FiO2 07/25/19 09:58 100 142/102 (115) 99 07/25/19 06:00 97.9 18 07/21/19 18:27 Room Air I&O- Last 24 Hours up to 6 AM 07/25/19 06:00 Intake Total 780 ml Output Total 1300 ml Balance -520 ml Laboratory Data 24H LABS Laboratory Tests 2 07/24/19 17:11: Bedside Glucose (Misc Panel) 379H 07/24/19 19:50: Bedside Glucose (Misc Panel) 346H 07/25/19 05:56: Nucleated Red Blood Cells % (auto) 0.0, Anion Gap 9, Glomerular Filtration Rate > 60.0, Blood Urea Nitrogen 10, Creatinine 0.98, Sodium Level 139, Potassium Level 3.8, Chloride Level 102, Carbon Dioxide Level 28, Calcium Level 8.6 07/25/19 09:52: Bedside Glucose (Misc Panel) 308H 07/25/19 12:04: Bedside Glucose (Misc Panel) 321H CBC/BMP Laboratory Tests 07/25/19 05:56 Red Blood Count 3.74 L, Mean Corpuscular Volume 81.3, Mean Corpuscular Hemoglobin 28.3, Mean Corpuscular Hemoglobin Concent 34.9, Red Cell Distribution Width 11.9, Calcium Level 8.6 Oneal Meza MD Jul 25, 2019 13:33
[2019-07-25 14:34] VITALS: BP 139/99
[2019-07-25] MEDS: guaiFENesin ER 600 MG TAB PO SCH ×2 (14:44→21:18)
[2019-07-25] MEDS ORDERED: HumaLOG INSULIN (NovoLOG) PER UNIT SC SCH (21:00)
[2019-07-25] MEDS ORDERED: LEVEMIR (INSULIN DETEMIR) 1 UNITS/0.01ML SC SCH (21:00)
[2019-07-25] MEDS: ATORVASTATIN 20 MG TAB PO SCH (21:18)
[2019-07-25] MEDS: NORTRIPTYLINE 25 MG CAP PO SCH (21:18)
[2019-07-25 22:00] VITALS: BP 130/89
[2019-07-26 06:00] VITALS: BP 126/80
[2019-07-26 07:04] LABS: HEMATOCRIT 31.9 % (42.0-52.0); MEAN CORPUSCULAR HEMOGLOBIN 27.6 pg (27.0-33.0); MEAN CORPUSCULAR HGB CONC 34.5 g/dl (32.0-36.5); MEAN CORPUSCULAR VOLUME 80.2 fl (80.0-96.0); PLATELET COUNT, AUTOMATED 241 10^3/uL (150-450); RED BLOOD COUNT 3.98 10^6/uL (4.30-6.10); WHITE BLOOD COUNT 9.7 10^3/uL (4.0-10.0)
[2019-07-26 07:20] LABS: ALBUMIN 2.4 GM/DL (3.2-5.2); ALT/SGPT 18 U/L (12-78); BILIRUBIN,TOTAL 0.4 MG/DL (0.2-1.0); BLOOD UREA NITROGEN 11 MG/DL (7-18); CALCIUM LEVEL 8.9 MG/DL (8.5-10.1); CARBON DIOXIDE LEVEL 27 MEQ/L (21-32); CHLORIDE LEVEL 101 MEQ/L (98-107); GLOMERULAR FILTRATION RATE > 60.0 (>56); GLUCOSE, FASTING 267 MG/DL (70-100); POTASSIUM SERUM 3.7 MEQ/L (3.5-5.1); SODIUM LEVEL 137 MEQ/L (136-145); TOTAL PROTEIN 7.1 GM/DL (6.4-8.2)
[2019-07-26] MEDS: METOPROLOL SUCC *XL* 25MG TAB (TopROL *XL*) PO SCH (09:29)
[2019-07-26] MEDS: lisinopriL 40 MG TAB PO SCH (09:29)
[2019-07-26] MEDS: guaiFENesin ER 600 MG TAB PO SCH ×2 (09:29→20:53)
[2019-07-26] MEDS: GABAPENTIN 400 MG CAP PO SCH ×4 (09:29→20:54)
[2019-07-26] MEDS: OMEPRAZOLE 20 MG CAP PO SCH (09:29)
[2019-07-26] MEDS: POTASSIUM CHLORIDE 10 MEQ SR TABLET PO SCH (09:29)
[2019-07-26] MEDS: HumaLOG INSULIN (NovoLOG) PER UNIT SC SCH ×4 (09:30→20:54)
[2019-07-26] MEDS: ENOXAPARIN 40 MG/0.4 ML SYRINGE (J1650) SC SCH (09:30)
[2019-07-26 14:37] VITALS: BP 132/93
--- NOTE | 2019-07-26 16:03 | IPNPDOC ---
Subjective Date Seen The patient was seen on 07/26/19. Subjective Chief Complaint/HPI Anthony reports he feels a little better today. He was trying to increase his walking, but reports that he got half-way down the garzon and had to stop. His cough and sputum production seem to have resolved. General: Reports: Normal Appetite Constitutional: Denies: Chills, Fever Pulmonary: Denies: Dyspnea, Cough Cardiovascular: Denies: Chest Pain Psych: Reports: Mood Normal Objective Physical Examination General Exam: Positive: Alert, Cooperative (laying in his bed watching football when I enter), No Acute Distress Eye Exam: Positive: Conjunctiva & lids normal; Negative: Sclera icteric ENT Exam: Positive: Mucous membr. moist/pink Neck Exam: Positive: Supple; Negative: Lymphadenopathy Chest Exam: Positive: Clear to auscultation, Normal air movement; Negative: Rales, Rhonchi, Wheezing Heart Exam: Positive: Rate Normal Abdomen Exam: Positive: Normal bowel sounds, Soft; Negative: Tenderness Extremity Exam: Negative: Edema Psych Exam: Positive: Mood NL Assessment /Plan Problems (1) Uncontrolled type 2 diabetes mellitus Status: Chronic Problem Text: 07/26/19: He used 32 units of sliding scale insulin the last 24 hours so I increased his basal insulin from 65 to 80. He reports that his home doses 96. 07/25: Remains hyperglycemic. He used 30 units of sliding scale insulin over the last 24 hours. Therefore, I will add 15 units to his basal insulin for a total of 65 units of basal insulin this evening and continue the sliding scale. 07/24/19: Most recent BG 313. Labs pending. Basal insulin was increased to 45 units 07/23/19: We will continue to titrate his insulin and monitor 07/22/19: Medication compliance is an issue outpatient. BG this morning 259, down from 505. He is on basal bolus regimen. We will continue to monitor (2) Gait instability Status: Chronic Response to Treatment: Stable Problem Text: 07/26/19: I encouraged him to keep walking more in the hallways to improve his stamina. I asked the nurses and aides to continue to walk with him as well. 07/25: His PT goal is home. He is listed as not safe for home yet. I explained to him that we will work on getting him moving better over the weekend. If we are not able to get him to the point where he can be safe at home by Saturday he will need to be changed to SNF status for further rehabilitation. This seemed to provide him some motivation to get up and walk with the nurses in order to get home. PT eval and treat requested. Likely sequela of previous stroke (3) HTN (hypertension) Status: Chronic Response to Treatment: Stable Problem Text: 07/26/19: His blood pressures remain well controlled. Continue current regimen, monitor. 07/25: His blood pressures are reasonably controlled. Continue current regimen, monitor. 07/24/19: Pressures well controlled 07/22/19: Pressures are improved this morning, Lisinopril 40mg daily and Metoprolol 25 mg daily (4) Pancreatitis Status: Resolved Response to Treatment: Stable Problem Text: 07/24/19: Patient continues to improve slowly. He has been able to advance his diet. Afebrile. Patient has not needed medication for pain control. Labs pending. Hopeful for discharge tomorrow 07/23/19: Improving. IVF stopped yesterday. We will continue to work on improving his DM control 07/22/19: Pain well controlled at present. IV hydration. BGs under better control. Patient on clear liquid diet and will advance as tolerated (5) Left wrist pain Status: Resolved Response to Treatment: Improving, Worse Problem Text: 07/25: The x-ray is negative. He did not mention this is a concern today. Fell this am reports left wrist pain.. Xray ordered. Plan/VTE VTE Prophylaxis Ordered?: Yes (Lovenox) Plan Anticipated Discharge: Home (07/27) VS, I&O, 24H, [place] Vital Signs/I&O Vital Signs Date Time Temp Pulse Resp B/P (MAP) Pulse Ox O2 Delivery O2 Flow Rate FiO2 07/26/19 14:37 98.3 98 16 132/93 (106) 94 07/21/19 18:27 Room Air I&O- Last 24 Hours up to 6 AM 07/26/19 05:59 Intake Total 2280 ml Output Total 2450 ml Balance -170 ml Laboratory Data 24H LABS Laboratory Tests 2 07/25/19 17:03: Bedside Glucose (Misc Panel) 247H 07/25/19 19:58: Bedside Glucose (Misc Panel) 355H 07/26/19 06:35: Nucleated Red Blood Cells % (auto) 0.0, Anion Gap 9, Glomerular Filtration Rate > 60.0, Blood Urea Nitrogen 11, Creatinine 1.00, Sodium Level 137, Potassium L evel 3.7, Chloride Level 101, Carbon Dioxide Level 27, Calcium Level 8.9, Aspartate Amino Transf (AST/SGOT) 11, Alanine Aminotransferase (ALT/SGPT) 18, Alkaline Phosphatase 81, Total Bilirubin 0.4, Total Protein 7.1, Albumin 2.4L, Albumin/Globulin Ratio 0.51L 07/26/19 11:43: Bedside Glucose (Misc Panel) 309H CBC/BMP Laboratory Tests 07/26/19 06:35 Red Blood Count 3.98 L, Mean Corpuscular Volume 80.2, Mean Corpuscular Hemoglobin 27.6, Mean Corpuscular Hemoglobin Concent 34.5, Red Cell Distribution Width 11.9, Calcium Level 8.9, Aspartate Amino Transf (AST/SGOT) 11, Alanine Aminotransferase (ALT/SGPT) 18, Alkaline Phosphatase 81, Total Bilirubin 0.4, T otal Protein 7.1, Albumin 2.4 L Oneal Meza MD Jul 26, 2019 4:03 pm
[2019-07-26] MEDS: NORTRIPTYLINE 25 MG CAP PO SCH (20:54)
[2019-07-26] MEDS: ATORVASTATIN 20 MG TAB PO SCH (20:54)
[2019-07-26] MEDS ORDERED: LEVEMIR (INSULIN DETEMIR) 1 UNITS/0.01ML SC SCH (21:00)
[2019-07-26 22:00] VITALS: BP 150/80
[2019-07-27 06:00] VITALS: BP 120/80
[2019-07-27 06:05] LABS: HEMATOCRIT 30.6 % (42.0-52.0); HEMOGLOBIN 10.5 g/dl (13.5-17.5); MEAN CORPUSCULAR HEMOGLOBIN 27.8 pg (27.0-33.0); MEAN CORPUSCULAR HGB CONC 34.3 g/dl (32.0-36.5); PLATELET COUNT, AUTOMATED 255 10^3/uL (150-450); RED BLOOD COUNT 3.78 10^6/uL (4.30-6.10); WHITE BLOOD COUNT 10.7 10^3/uL (4.0-10.0)
[2019-07-27 06:30] LABS: BLOOD UREA NITROGEN 13 MG/DL (7-18); CALCIUM LEVEL 8.7 MG/DL (8.5-10.1); CARBON DIOXIDE LEVEL 29 MEQ/L (21-32); CHLORIDE LEVEL 101 MEQ/L (98-107); GLOMERULAR FILTRATION RATE > 60.0 (>56); GLUCOSE, FASTING 258 MG/DL (70-100); POTASSIUM SERUM 3.9 MEQ/L (3.5-5.1); SODIUM LEVEL 137 MEQ/L (136-145)
[2019-07-27] MEDS: METOPROLOL SUCC *XL* 25MG TAB (TopROL *XL*) PO SCH (08:18)
[2019-07-27] MEDS: POTASSIUM CHLORIDE 10 MEQ SR TABLET PO SCH (08:18)
[2019-07-27] MEDS: guaiFENesin ER 600 MG TAB PO SCH (08:18)
[2019-07-27] MEDS: lisinopriL 40 MG TAB PO SCH (08:18)
[2019-07-27 08:19] VITALS: BP 120/80
[2019-07-27] MEDS: ENOXAPARIN 40 MG/0.4 ML SYRINGE (J1650) SC SCH (08:19)
[2019-07-27] MEDS: OMEPRAZOLE 20 MG CAP PO SCH (08:19)
[2019-07-27] MEDS: GABAPENTIN 400 MG CAP PO SCH ×2 (08:19→13:19)
[2019-07-27] MEDS: HumaLOG INSULIN (NovoLOG) PER UNIT SC SCH ×2 (08:20→13:20)
--- NOTE | 2019-07-27 10:43 | IPNPDOC ---
Subjective Date Seen The patient was seen on 07/27/19. Subjective Chief Complaint/HPI pancreatitis, hyperglycemia Constitutional: Denies: Chills, Fever, Night Sweats Pulmonary: Denies: Dyspnea, Cough Cardiovascular: Denies: Chest Pain, Palpitations, Orthopnea, Paroxysmal Noc. Dyspnea, Lt Headedness Objective Physical Examination General Exam: Positive: Alert, Cooperative (laying in his bed watching football when I enter), No Acute Distress Eye Exam: Positive: Conjunctiva & lids normal; Negative: Sclera icteric ENT Exam: Positive: Mucous membr. moist/pink Neck Exam: Positive: Supple; Negative: Lymphadenopathy Chest Exam: Positive: Clear to auscultation, Normal air movement; Negative: Rales, Rhonchi, Wheezing Heart Exam: Positive: Rate Normal Abdomen Exam: Positive: Normal bowel sounds, Soft; Negative: Tenderness Extremity Exam: Negative: Edema Psych Exam: Positive: Mood NL Assessment /Plan Problems (1) Uncontrolled type 2 diabetes mellitus Status: Chronic Problem Text: 07/27/19: continue current insulin regimen. 07/26/19: He used 32 units of sliding scale insulin the last 24 hours so I increased his basal insulin from 65 to 80. He reports that his home doses 96. 07/25: Remains hyperglycemic. He used 30 units of sliding scale insulin over the last 24 hours. Therefore, I will add 15 units to his basal insulin for a total of 65 units of basal insulin this evening and continue the sliding scale. 07/24/19: Most recent BG 313. Labs pending. Basal insulin was increased to 45 units 07/23/19: We will continue to titrate his insulin and monitor 07/22/19: Medication compliance is an issue outpatient. BG this morning 259, down from 505. He is on basal bolus regimen. We will continue to monitor (2) Gait instability Status: Chronic Response to Treatment: Stable Problem Text: 07/27/19: declined PT this am. pending PT eval today, consider SNF status. 07/26/19: I encouraged him to keep walking more in the hallways to improve his stamina. I asked the nurses and aides to continue to walk with him as well. 07/25: His PT goal is home. He is listed as not safe for home yet. I explained to him that we will work on getting him moving better over the weekend. If we are not able to get him to the point where he can be safe at home by Saturday he will need to be changed to SNF status for further rehabilitation. This seemed to provide him some motivation to get up and walk with the nurses in order to get home. PT eval and treat requested. Likely sequela of previous stroke (3) HTN (hypertension) Status: Chronic Response to Treatment: Stable Problem Text: 07/26/19: His blood pressures remain well controlled. Continue current regimen, monitor. 07/25: His blood pressures are reasonably controlled. Continue current regimen, monitor. 07/24/19: Pressures well controlled 07/22/19: Pressures are improved this morning, Lisinopril 40mg daily and Metoprol ol 25 mg daily (4) Pancreatitis Status: Resolved Response to Treatment: Stable Problem Text: 07/24/19: Patient continues to improve slowly. He has been able to advance his diet. Afebrile. Patient has not needed medication for pain control. Labs pending. Hopeful for discharge tomorrow 07/23/19: Improving. IVF stopped yesterday. We will continue to work on improving his DM control 07/22/19: Pain well controlled at present. IV hydration. BGs under better control. Patient on clear liquid diet and will advance as tolerated (5) Left wrist pain Status: Resolved Response to Treatment: Improving, Worse Problem Text: 07/25: The x-ray is negative. He did not mention this is a concern today. Fell this am reports left wrist pain.. Xray ordered. Plan/VTE VTE Prophylaxis Ordered?: Yes (Lovenox) Plan Anticipated Discharge: Home (07/27) VS, I&O, 24H, Roberto Vital Signs/I&O Vital Signs Date Time Temp Pulse Resp B/P (MAP) Pulse Ox O2 Delivery O2 Flow Rate FiO2 07/27/19 08:19 104 120/80 07/27/19 06:00 98.0 18 94 07/21/19 18:27 Room Air I&O- Last 24 Hours up to 6 AM 07/27/19 05:59 Intake Total 1710 ml Output Total 2000 ml Balance -290 ml Laboratory Data 24H LABS Laboratory Tests 2 07/26/19 11:43: Bedside Glucose (Misc Panel) 309H 07/26/19 16:33: Bedside Glucose (Misc Panel) 239H 07/26/19 20:31: Bedside Glucose (Misc Panel) 282H 07/27/19 05:20: Nucleated Red Blood Cells % (auto) 0.0, Anion Gap 7L, Glomerular Filtration Rate > 60.0, Blood Urea Nitrogen 13, Creatinine 1.00, Sodium Level 137, Potassium Level 3.9, Chloride Level 101, Carbon Dioxide Level 29, Calcium Level 8.7 CBC/BMP Laboratory Tests 07/27/19 05:20 Red Blood Count 3.78 L, Mean Corpuscular Volume 81.0, Mean Corpuscular Hemoglobin 27.8, Mean Corpuscular Hemoglobin Concent 34.3, Red Cell Distribution Width 12.0, Calcium Level 8.7 Soni Hudson CHIEF OF SAFETY AND PROTECTION Jul 27, 2019 10:43
--- NOTE | 2019-08-17 10:01 | DSES ---
DATE OF ADMISSION: 07/21/2019 DATE OF DISCHARGE: 07/27/2019 ATTENDING PHYSICIAN: Dr. Mina Duncan PRIMARY CARE PROVIDER: Dr. Mynor Hernandez HISTORY OF PRESENT ILLNESS: 54-year-old male who presented to [facility] emergency department with complaints of abdominal pain and shortness of breath several days prior to the abdominal pain episode. The patient was found to have an elevated lipase along with hyperglycemia in the emergency room and was subsequently admitted. HOSPITAL COURSE: The patient was provided with IV hydration and tight glucose control. Diet was slowly advanced as tolerated. The patient did have difficulty passing safety evaluation with physical therapy (PT) and remained a few extra days to prove physical safety in regard to going home. PHYSICAL EXAMINATION: On the day of discharge: Vital signs stable. Afebrile. Neck is supple without lymphadenopathy. Cardiovascular: Heart rate and rhythm are regular. Pulmonary: Lungs are clear. Abdomen is soft and nontender. Positive bowel sounds times all four quadrants. Psychiatric: Affect is flat. The patient does maintain eye contact. ASSESSMENT: 1. Pancreatitis. 2. Uncontrolled type 2 diabetes. 3. Hypertension. 4. Gait instability. PLAN: The patient will be discharged to home. Diet is carbohydrate consistent. Activity is as tolerated. MEDICATIONS: - amlodipine 2.5 mg one by mouth daily - atorvastatin 40 mg daily - vitamin D 50,000 units weekly - fenofibrate 160 mg by mouth at night - furosemide 40 mg by mouth daily - gabapentin 800 mg by mouth four times a day - Toujeo SoloStar 80 units subcutaneously daily - Lispro 2 to 14 units subcutaneous before food and nightly - Lisinopril 40 mg daily - metformin 500 mg by mouth with meals - metoprolol 25 mg by mouth daily - Naproxen 500 mg by mouth twice a day as needed for pain - Nortriptyline 50 mg by mouth at night - omeprazole 40 mg daily - Zofran 4 mg by mouth every 6 hours as needed for nausea or vomiting - potassium 10 mEq by mouth daily - Tramadol 50 mg by mouth every 6 hours as needed for pain The patient is to followup with Dr. Hernandez on 08/06/2019 at 2:00 p.m. The patient is discharged in stable and satisfactory condition with no further questions at the time of discharge.
== END 2019-07-27 14:45 | disposition home health service (06) | DRG 282 ==
LOC: EDBD 15:28 → M ED 15:28 → M ED INP 18:23 → M MS4PR 20:10 → M MS5PR 07-23 14:55
PROVIDERS: ADMIT Student in an Organized Health Care Education/Training Program; ATTEND Family Medicine
DX: K85.90 Acute pancreatitis without necrosis or infection, unspecified (principal); E11.65 Type 2 diabetes mellitus with hyperglycemia; I10 Essential (primary) hypertension; I25.10 Atherosclerotic heart disease of native coronary artery without angina pectoris; Z90.49 Acquired absence of other specified parts of digestive tract; Z79.4 Long term (current) use of insulin; J30.2 Other seasonal allergic rhinitis; Z91.010 Allergy to peanuts; Z91.018 Allergy to other foods; Z79.899 Other long term (current) drug therapy; R26.89 Other abnormalities of gait and mobility; M25.532 Pain in left wrist; K86.1 Other chronic pancreatitis

== ENCOUNTER 2019-10-29 22:33 | Emergency (ER) | payer OTHER ==
[~2019-10-29 22:33] MED LIST changes: +AMLO25TA PO; +FURO40TA2 PO; +NAPR500T6 PO; +POTA10CA32 PO
[2019-10-29] MEDS ORDERED: ISOVUE-370 76% 100ML VIAL (Q9967) As Ordered ONE (23:23)
[2019-10-29 23:34] LABS: ALBUMIN 3.3 GM/DL (3.2-5.2); ALT/SGPT 16 U/L (12-78); BILIRUBIN,DIRECT < 0.1 MG/DL (0.0-0.2); BILIRUBIN,TOTAL 0.2 MG/DL (0.2-1.0); CK-MB VALUE MASS 2.8 NG/ML (<3.6); CPK CREATINE PHOSPHOKINASE 126 U/L (39-308); LIPASE 348 U/L (73-393); MB/CK RELATIVE INDEX 2.22 (< OR =4); TOTAL PROTEIN 7.6 GM/DL (6.4-8.2); TROPONIN I < 0.02 NG/ML (< 0.10)
[2019-10-30] MEDS ORDERED: HumuLIN R (REGULAR) INSULIN (NovoLIN R) **100U/ML** PER UNIT IV ONE (00:15)
--- NOTE | 2019-10-30 00:58 | REPVR ---
PROCEDURE INFORMATION: Exam: CT Abdomen And Pelvis With Contrast Exam date and time: 10/29/2019 11:14 PM Age: 54 years old Clinical indication: Abdominal pain; Localized; Lower; Additional info: Rlq abd pain radiating RO llq and back; N/v TECHNIQUE: Imaging protocol: Computed tomography of the abdomen and pelvis with intravenous contrast. Radiation optimization: All CT scans at this facility use at least one of these dose optimization techniques: automated exposure control; mA and/or kV adjustment per patient size (includes targeted exams where dose is matched to clinical indication); or iterative reconstruction. Contrast material: ISO; Contrast volume: 100 ml; Contrast route: AC; COMPARISON: CT ABD/PEL W/IV CONTRAST ONLY 07/21/2019 5:34 PM FINDINGS: Lungs: No suspicious mass or airspace process in the visualized lung bases. Mediastinum: Small hiatal hernia is present. Liver: Liver appears normal with no focal abnormality. Gallbladder and bile ducts: Gallbladder is surgically absent. Pancreas: Pancreas appears normal. No focal mass or peripancreatic inflammation. Spleen: Spleen appears homogeneous without focal mass. Adrenals: Adrenal glands are normal in appearance. Kidneys and ureters: Kidneys appear normal, with no stone, solid mass or hydronephrosis. Stomach and bowel: No evidence of small bowel obstruction. Diverticular changes are present within the colon without inflammation. Appendix: Normal caliber appendix is identified, with no adjacent inflammation. Intraperitoneal space: No pneumoperitoneum. Vasculature: No aortic aneurysm. Main portal and splenic veins enhance normally. Lymph nodes: No enlarged lymph nodes. Bladder: Urinary bladder is distended. Bones/joints: Bony structures show no acute fracture or destructive process. Soft tissues: . No concerning focal abnormality of the extrinsic soft tissues. IMPRESSION: 1. No acute surgical or inflammatory intra-abdominal or pelvic process. Normal-appearing appendix. No inflammatory bowel process. 2. Colonic diverticulosis without active inflammation. 3. Small hiatal hernia which can be associated with GE reflux. Electronically signed by: Pasquale Mcclendon On 10/30/2019 00:58:38 AM
[2019-10-30] MEDS ORDERED: PEN1MIS21 SC (01:26)
[2019-10-30 01:29] VITALS: BP 148/97
[2019-10-30] MEDS ORDERED: METOCLOPRAMIDE 10 MG TAB PO ONE (01:30)
--- NOTE | 2019-10-30 08:00 | REP ---
Clinical: Lower chest and abdominal pain. Comparison: 07/21/2019 . Technique: PA and lateral. Findings: The mediastinum and cardiac silhouette are normal. The lung burger demonstrate relatively stable chronic-appearing changes without acute consolidation, effusion, or pneumothorax. The skeletal structures are intact and normal. Impression: 1. No acute cardiopulmonary process. Electronically Signed by Tariq Mosqueda MD 10/30/2019 07:45 A
--- NOTE | 2019-11-01 08:42 | ECGEPIP ---
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
== END 2019-10-30 01:49 | disposition home or self-care (01) ==
LOC: M ED 22:33
DX: E11.65 Type 2 diabetes mellitus with hyperglycemia (principal); K57.92 Diverticulitis of intestine, part unspecified, without perforation or abscess without bleeding; K44.9 Diaphragmatic hernia without obstruction or gangrene; K21.9 Gastro-esophageal reflux disease without esophagitis; Z91.14 Patient's other noncompliance with medication regimen; R00.0 Tachycardia, unspecified; R19.7 Diarrhea, unspecified; R11.10 Vomiting, unspecified; I11.0 Hypertensive heart disease with heart failure; I50.31 Acute diastolic (congestive) heart failure; Z87.19 Personal history of other diseases of the digestive system; J30.1 Allergic rhinitis due to pollen; Z91.018 Allergy to other foods; Z91.010 Allergy to peanuts; Z79.899 Other long term (current) drug therapy; Z79.4 Long term (current) use of insulin
CPT/HCPCS: 71046; 74177; 80047; 80076; 81001; 82010; 82550; 82553; 83605; 83690; 93005; 96374; 99284; Q9967

== ENCOUNTER 2019-11-29 20:07 | Emergency (ER) | payer OTHER ==
[~2019-11-29] VITALS: Ht 170.2 cm; Wt 74.1 kg
[~2019-11-29 20:07] MED LIST changes: +PEN1MIS21 SC
[2019-11-29 20:59] LABS: BASO # 0.1 10^3/uL (0.0-0.2); BASO % 0.7 % (0.0-1.0); EOS # 0.3 10^3/uL (0.0-0.5); EOS % 2.9 % (0.0-3.0); HEMATOCRIT 39.7 % (42.0-52.0); HEMOGLOBIN 13.4 g/dl (13.5-17.5); LYMPH # 3.1 10^3/uL (1.5-5.0); LYMPH % 36.6 % (24.0-44.0); MEAN CORPUSCULAR HEMOGLOBIN 27.2 pg (27.0-33.0); MEAN CORPUSCULAR HGB CONC 33.8 g/dl (32.0-36.5); MEAN CORPUSCULAR VOLUME 80.7 fl (80.0-96.0); MONO # 0.6 10^3/uL (0.0-0.8); NEUTROPHILS # 4.5 10^3/uL (1.5-8.5); NEUTROPHILS % 52.6 % (36.0-66.0); PLATELET COUNT, AUTOMATED 240 10^3/uL (150-450); RED BLOOD COUNT 4.92 10^6/uL (4.30-6.10); WHITE BLOOD COUNT 8.6 10^3/uL (4.0-10.0)
[2019-11-29] MEDS ORDERED: ONDANSETRON 4MG/2ML VIAL (J2405) IV ONE (21:00)
[2019-11-29] MEDS ORDERED: FAMOTIDINE IV BAG 20 MG in IV 1 EA IV ONE (21:00)
[2019-11-29] MEDS ORDERED: KETOROLAC 30 MG/ML VIAL (J1885) IV ONE (21:00)
[2019-11-29] MEDS ORDERED: NS 1,000 ML IV ONE (21:00)
[2019-11-29 21:13] LABS: OSMOLALITY SERUM 299 MOSM/KG (275-295)
[2019-11-29 21:34] LABS: ALBUMIN 3.5 GM/DL (3.2-5.2); ALT/SGPT 18 U/L (12-78); BILIRUBIN,DIRECT < 0.1 MG/DL (0.0-0.2); BILIRUBIN,TOTAL 0.3 MG/DL (0.2-1.0); BLOOD UREA NITROGEN 9 MG/DL (7-18); CALCIUM LEVEL 8.9 MG/DL (8.5-10.1); CARBON DIOXIDE LEVEL 25 MEQ/L (21-32); CHLORIDE LEVEL 103 MEQ/L (98-107); CREATININE FOR GFR 1.17 MG/DL (0.70-1.30); GLOMERULAR FILTRATION RATE > 60.0 (>56); GLUCOSE, FASTING 366 MG/DL (70-100); LIPASE 427 U/L (73-393); POTASSIUM SERUM 4.5 MEQ/L (3.5-5.1); SODIUM LEVEL 136 MEQ/L (136-145); TOTAL PROTEIN 7.8 GM/DL (6.4-8.2)
[2019-11-29 21:56] LABS: VENOUS BASE EXCESS -1.3 (-2.0-2.0); VENOUS HCO3 24.2 MEQ/L (23.0-27.0); VENOUS O2 SATURATION 92.1 % (60.0-80.0); VENOUS PARTIAL PRESSURE CO2 43.9 mmHg (38.0-50.0); VENOUS STANDARD HCO3 23.3 MEQ/L; VENOUS TOTAL CO2 25.6 MEQ/L (24.0-28.0)
[2019-11-29 23:20] VITALS: BP 162/87
== END 2019-11-29 23:22 | disposition home or self-care (01) ==
LOC: EDBD 20:07 → M ED 20:07
DX: R11.10 Vomiting, unspecified (principal); E11.9 Type 2 diabetes mellitus without complications; Z79.4 Long term (current) use of insulin; Z79.899 Other long term (current) drug therapy; Z91.138 Patient's unintentional underdosing of medication regimen for other reason; Z91.010 Allergy to peanuts; Z91.018 Allergy to other foods
CPT/HCPCS: 80048; 80076; 82803; 83690; 83930; 85025; 93041; 96365; 96366; 96375; 99284; J1885; J2405

== ENCOUNTER 2020-03-18 19:39 | Emergency (ER) | payer OTHER ==
[~2020-03-18] VITALS: Ht 170.2 cm; Wt 70.0 kg
[~2020-03-18 19:39] MED LIST changes: -LISI-1046; +LISI2.5T2; -MAPA325T2 PO; +MAPA325T8 PO
[2020-03-18] MEDS ORDERED: ONDANSETRON 4MG/2ML VIAL IV ONE (20:00)
[2020-03-18 20:18] LABS: BASO # 0.1 10^3/uL (0.0-0.2); BASO % 0.8 % (0.0-1.0); EOS # 0.2 10^3/uL (0.0-0.5); EOS % 2.7 % (0.0-3.0); HEMATOCRIT 36.4 % (42.0-52.0); HEMOGLOBIN 12.7 g/dl (13.5-17.5); LYMPH # 3.1 10^3/uL (1.5-5.0); LYMPH % 42.8 % (24.0-44.0); MEAN CORPUSCULAR HEMOGLOBIN 28.2 pg (27.0-33.0); MEAN CORPUSCULAR HGB CONC 34.9 g/dl (32.0-36.5); MEAN CORPUSCULAR VOLUME 80.7 fl (80.0-96.0); MONO # 0.5 10^3/uL (0.0-0.8); MONO % 6.3 % (0.0-5.0); NEUTROPHILS # 3.4 10^3/uL (1.5-8.5); NEUTROPHILS % 47.1 % (36.0-66.0); PLATELET COUNT, AUTOMATED 217 10^3/uL (150-450); RED BLOOD COUNT 4.51 10^6/uL (4.30-6.10); WHITE BLOOD COUNT 7.1 10^3/uL (4.0-10.0)
[2020-03-18 20:37] LABS: ALBUMIN 3.2 GM/DL (3.2-5.2); ALT/SGPT 16 U/L (12-78); BILIRUBIN,DIRECT 0.1 MG/DL (0.0-0.2); BILIRUBIN,TOTAL 0.3 MG/DL (0.2-1.0); BLOOD UREA NITROGEN 12 MG/DL (7-18); CALCIUM LEVEL 8.7 MG/DL (8.5-10.1); CARBON DIOXIDE LEVEL 30 MEQ/L (21-32); CHLORIDE LEVEL 103 MEQ/L (98-107); CREATININE FOR GFR 1.09 MG/DL (0.70-1.30); GLOMERULAR FILTRATION RATE > 60.0 (>56); GLUCOSE, FASTING 374 MG/DL (70-100); LIPASE 165 U/L (73-393); POTASSIUM SERUM 4.1 MEQ/L (3.5-5.1); SODIUM LEVEL 138 MEQ/L (136-145)
[2020-03-18] MEDS ORDERED: PROC25SU24 PR ×2 (21:32→21:36)
[2020-03-18] MEDS ORDERED: ONDA4TAB6 PO ×2 (21:32→21:36)
[2020-03-18] MEDS ORDERED: METF-839 PO (21:36)
[2020-03-18] MEDS ORDERED: LISI10TA4 PO (21:36)
[2020-03-18 21:46] VITALS: BP 143/97
== END 2020-03-18 22:13 | disposition home or self-care (01) ==
LOC: M ED 19:39
DX: I10 Essential (primary) hypertension (principal); E11.65 Type 2 diabetes mellitus with hyperglycemia; Z91.19 Patient's noncompliance with other medical treatment and regimen; E78.5 Hyperlipidemia, unspecified; I25.10 Atherosclerotic heart disease of native coronary artery without angina pectoris; Z91.010 Allergy to peanuts; Z91.018 Allergy to other foods; J30.2 Other seasonal allergic rhinitis; Z79.899 Other long term (current) drug therapy; Z79.84 Long term (current) use of oral hypoglycemic drugs
CPT/HCPCS: 80048; 80076; 83690; 85025; 96374; 99284; J2405

== ENCOUNTER 2020-04-17 06:20 | Emergency (ER) | payer OTHER ==
[~2020-04-17 06:20] MED LIST changes: +ASPI-546 PO; -ASPI1TAB15 PO; +METF-839 PO; +PROC25SU24 PR
[2020-04-17] MEDS ORDERED: TRAM50TA2 PO (06:32)
[2020-04-17] MEDS ORDERED: ACETAMINOPHEN 325 MG TAB PO ONE (07:15)
[2020-04-17] MEDS ORDERED: LIDOCAINE 5% (LIDODERM) PATCH TD ONE (07:15)
[2020-04-17 07:21] LABS: BASO # 0.1 10^3/uL (0.0-0.2); BASO % 0.9 % (0.0-1.0); EOS # 0.3 10^3/uL (0.0-0.5); EOS % 3.6 % (0.0-3.0); HEMATOCRIT 35.7 % (42.0-52.0); HEMOGLOBIN 12.8 g/dl (13.5-17.5); LYMPH % 46.8 % (24.0-44.0); MEAN CORPUSCULAR HEMOGLOBIN 28.8 pg (27.0-33.0); MEAN CORPUSCULAR HGB CONC 35.9 g/dl (32.0-36.5); MEAN CORPUSCULAR VOLUME 80.4 fl (80.0-96.0); MONO # 0.6 10^3/uL (0.0-0.8); MONO % 6.9 % (0.0-5.0); NEUTROPHILS # 3.5 10^3/uL (1.5-8.5); NEUTROPHILS % 41.7 % (36.0-66.0); PLATELET COUNT, AUTOMATED 202 10^3/uL (150-450); RED BLOOD COUNT 4.44 10^6/uL (4.30-6.10); WHITE BLOOD COUNT 8.4 10^3/uL (4.0-10.0)
[2020-04-17] MEDS ORDERED: KETOROLAC 30 MG/ML 1ML VIAL IM ONE (07:30)
[2020-04-17 07:48] LABS: ALBUMIN 3.1 GM/DL (3.2-5.2); ALT/SGPT 19 U/L (12-78); AMYLASE 58 U/L (25-115); BILIRUBIN,DIRECT < 0.1 MG/DL (0.0-0.2); BILIRUBIN,TOTAL 0.2 MG/DL (0.2-1.0); LIPASE 193 U/L (73-393); TOTAL PROTEIN 7.2 GM/DL (6.4-8.2)
[2020-04-17] MEDS ORDERED: LIDO5DIS41 TOP (08:05)
[2020-04-17 08:29] VITALS: BP 170/104
[2020-04-17] MEDS ORDERED: lisinopriL 10 MG TAB PO ONE (08:30)
[2020-04-17] MEDS ORDERED: metFORMIN (GLUCOPHAGE) 500 MG TAB PO ONE (08:30)
[2020-04-17 09:41] LABS: HEMOGLOBIN A1c 13.3 %
[2020-04-17 09:48] VITALS: BP 167/102
[2020-04-17] MEDS ORDERED: **NOTE PATIENT COMMENT** MISC XX SCH (21:00)
== END 2020-04-17 09:49 | disposition home or self-care (01) ==
LOC: M ED 06:20
DX: M54.9 Dorsalgia, unspecified (principal); G89.29 Other chronic pain; E11.65 Type 2 diabetes mellitus with hyperglycemia; Z91.81 History of falling; I48.91 Unspecified atrial fibrillation; I10 Essential (primary) hypertension; E78.5 Hyperlipidemia, unspecified; I69.351 Hemiplegia and hemiparesis following cerebral infarction affecting right dominant side; E55.9 Vitamin D deficiency, unspecified; J30.1 Allergic rhinitis due to pollen; Z91.010 Allergy to peanuts; Z91.018 Allergy to other foods; Z79.899 Other long term (current) drug therapy; Z79.84 Long term (current) use of oral hypoglycemic drugs
CPT/HCPCS: 36415; 80047; 80076; 82150; 83036; 83690; 85025; 96372; 99284; J1885

== ENCOUNTER 2020-08-30 02:03 | Emergency (ER) | payer OTHER ==
[~2020-08-30] VITALS: Ht 170.2 cm; Wt 70.0 kg
[2020-08-30 02:57] LABS: BASO # 0.1 10^3/uL (0.0-0.2); BASO % 0.8 % (0.0-1.0); EOS # 0.2 10^3/uL (0.0-0.5); EOS % 2.4 % (0.0-3.0); HEMATOCRIT 33.8 % (42.0-52.0); HEMOGLOBIN 11.5 g/dl (13.5-17.5); LYMPH # 3.3 10^3/uL (1.5-5.0); LYMPH % 41.6 % (24.0-44.0); MEAN CORPUSCULAR HEMOGLOBIN 27.8 pg (27.0-33.0); MEAN CORPUSCULAR VOLUME 81.6 fl (80.0-96.0); MONO # 0.7 10^3/uL (0.0-0.8); MONO % 8.3 % (0.0-5.0); NEUTROPHILS # 3.7 10^3/uL (1.5-8.5); NEUTROPHILS % 46.8 % (36.0-66.0); PLATELET COUNT, AUTOMATED 214 10^3/uL (150-450); RED BLOOD COUNT 4.14 10^6/uL (4.30-6.10); WHITE BLOOD COUNT 7.9 10^3/uL (4.0-10.0)
[2020-08-30 03:27] LABS: BLOOD UREA NITROGEN 16 MG/DL (7-18); CALCIUM LEVEL 8.7 MG/DL (8.5-10.1); CARBON DIOXIDE LEVEL 25 MEQ/L (21-32); CHLORIDE LEVEL 104 MEQ/L (98-107); CK-MB VALUE MASS 4.4 NG/ML (<3.6); CPK CREATINE PHOSPHOKINASE 181 U/L (39-308); CREATININE FOR GFR 1.25 MG/DL (0.70-1.30); GLOMERULAR FILTRATION RATE > 60.0 (>56); GLUCOSE, FASTING 359 MG/DL (70-100); MB/CK RELATIVE INDEX 2.43 (< OR =4); POTASSIUM SERUM 4.1 MEQ/L (3.5-5.1); SODIUM LEVEL 136 MEQ/L (136-145); THYROID STIMULATING HORMONE 0.679 uIU/ML (0.358-3.740); TROPONIN I < 0.02 NG/ML (< 0.10)
--- NOTE | 2020-08-30 04:47 | REPVR ---
PROCEDURE INFORMATION: Exam: CT Cervical Spine Without Contrast Exam date and time: 08/30/2020 3:49 AM Age: 55 years old Clinical indication: Injury or trauma; Fall; Blunt trauma TECHNIQUE: Imaging protocol: Computed tomography images of the cervical spine without contrast. Radiation optimization: All CT scans at this facility use at least one of these dose optimization techniques: automated exposure control; mA and/or kV adjustment per patient size (includes targeted exams where dose is matched to clinical indication); or iterative reconstruction. COMPARISON: CT Spine,cervical w/o contrast 01/04/2019 1:30 PM FINDINGS: Bones/joints: No acute fracture. Normal alignment. Discs/Spinal canal/Neural foramina: Severe degenerative disc disease and facet hypertrophy several levels. Marked stenosis of the spinal canal and bilateral neural foramina at C3-C4. Left neural foraminal stenosis at C4-C5 and C5-C6. Soft tissues: Unremarkable. Lungs: Lung apices are normal. IMPRESSION: No acute fractures. Electronically signed by: Bonilla Snyder On 08/30/2020 04:47:12 AM
--- NOTE | 2020-08-30 04:50 | REPVR ---
PROCEDURE INFORMATION: Exam: CT Thoracic Spine Without Contrast Exam date and time: 08/30/2020 3:49 AM Age: 55 years old Clinical indication: Injury or trauma; Fall; Blunt trauma (contusions or hematomas) TECHNIQUE: Imaging protocol: Computed tomography images of the thoracic spine without contrast. Radiation optimization: All CT scans at this facility use at least one of these dose optimization techniques: automated exposure control; mA and/or kV adjustment per patient size (includes targeted exams where dose is matched to clinical indication); or iterative reconstruction. COMPARISON: CR Spine, Thoracic 3 VIEWS 01/04/2019 2:13 PM FINDINGS: Vertebrae: No acute fracture. Normal alignment. Discs/Spinal canal/Neural foramina: Mild multilevel degenerative disease of the thoracic spine. Soft tissues: Unremarkable. Lungs: Bilateral dependent atelectasis. Heart: Atherosclerotic disease of the coronary arteries. Mediastinum: Circumferential esophageal wall thickening. Gallbladder and bile ducts: Status post cholecystectomy. Pancreas: Suggestion chronic pancreatitis. IMPRESSION: No acute fractures. Electronically signed by: Bonilla Snyder On 08/30/2020 04:50:05 AM
--- NOTE | 2020-08-30 04:50 | REPVR ---
PROCEDURE INFORMATION: Exam: XR Pelvis Exam date and time: 08/30/2020 4:27 AM Age: 55 years old Clinical indication: Pelvic pain; Additional info: Trauma TECHNIQUE: Imaging protocol: XR pelvis. Views: 1 or 2 view. COMPARISON: CT ABD/PEL W/IV CONTRAST ONLY 10/29/2019 11:57 PM FINDINGS: Bones/joints: Mild degenerative changes bilateral sacroiliac joints. Soft tissues: Unremarkable. IMPRESSION: No acute fractures. Electronically signed by: Bonilla Snyder On 08/30/2020 04:50:45 AM
--- NOTE | 2020-08-30 04:51 | REPVR ---
PROCEDURE INFORMATION: Exam: XR Chest, 1 View Exam date and time: 08/30/2020 4:27 AM Age: 55 years old Clinical indication: Chest pain; Type not specified; Additional info: Trauma TECHNIQUE: Imaging protocol: XR of the chest Views: 1 view. COMPARISON: CR Chest, 2 view PA, Lat 10/29/2019 11:42 PM FINDINGS: Lungs: Unremarkable. No consolidation. Pleural space: Unremarkable. No pleural effusion. No pneumothorax. Heart/Mediastinum: Unremarkable. No cardiomegaly. Bones/joints: Unremarkable. IMPRESSION: No acute findings. Electronically signed by: Bonilla Snyder On 08/30/2020 04:51:22 AM
[2020-08-30 06:30] VITALS: BP 120/72
--- NOTE | 2020-08-30 09:37 | ECGEPIP ---
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
== END 2020-08-30 07:05 | disposition home or self-care (01) ==
LOC: M ED 02:03
DX: M54.9 Dorsalgia, unspecified (principal); R55 Syncope and collapse; E11.9 Type 2 diabetes mellitus without complications

== ENCOUNTER 2020-09-14 03:59 | Emergency (ER) | payer OTHER ==
[~2020-09-14] VITALS: Ht 177.8 cm; Wt 70.0 kg
[2020-09-14] MEDS ORDERED: AMMONIA AROMATIC INHALANT STA (04:02)
[2020-09-14] MEDS ORDERED: ONDA4TAB6 (04:11)
[2020-09-14] MEDS ORDERED: COMP1SUP2 (04:11)
[2020-09-14] MEDS ORDERED: PROC25SU24 (04:11)
[2020-09-14] MEDS ORDERED: LISI10TA4 (04:11)
[2020-09-14] MEDS ORDERED: METF500T13 (04:11)
[2020-09-14] MEDS ORDERED: LIDO5DIS41 (04:11)
[2020-09-14] MEDS ORDERED: NS 1,000 ML IV ONE (04:15)
[2020-09-14 04:26] LABS: BASO % 0.3 % (0.0-1.0); EOS # 0.2 10^3/uL (0.0-0.5); EOS % 1.6 % (0.0-3.0); HEMATOCRIT 34.1 % (42.0-52.0); LYMPH # 2.5 10^3/uL (1.5-5.0); LYMPH % 20.3 % (24.0-44.0); MEAN CORPUSCULAR HEMOGLOBIN 28.6 pg (27.0-33.0); MEAN CORPUSCULAR HGB CONC 35.2 g/dl (32.0-36.5); MEAN CORPUSCULAR VOLUME 81.4 fl (80.0-96.0); MONO # 0.8 10^3/uL (0.0-0.8); MONO % 6.6 % (0.0-5.0); NEUTROPHILS # 8.9 10^3/uL (1.5-8.5); PLATELET COUNT, AUTOMATED 224 10^3/uL (150-450); RED BLOOD COUNT 4.19 10^6/uL (4.30-6.10); WHITE BLOOD COUNT 12.5 10^3/uL (4.0-10.0)
[2020-09-14 05:13] LABS: ACETAMINOPHEN LEVEL < 2.0 UG/ML (10.0-30.0); ACETONE/KETONE 1.48 MG/DL (<2.81); ALBUMIN 2.9 GM/DL (3.2-5.2); ALT/SGPT 19 U/L (12-78); BILIRUBIN,DIRECT < 0.1 MG/DL (0.0-0.2); BILIRUBIN,TOTAL 0.3 MG/DL (0.2-1.0); BLOOD UREA NITROGEN 20 MG/DL (7-18); CALCIUM LEVEL 8.7 MG/DL (8.5-10.1); CARBON DIOXIDE LEVEL 27 MEQ/L (21-32); CHLORIDE LEVEL 102 MEQ/L (98-107); CK-MB VALUE MASS 2.9 NG/ML (<3.6); CPK CREATINE PHOSPHOKINASE 131 U/L (39-308); CREATININE FOR GFR 1.25 MG/DL (0.70-1.30); ETHYL ALCOHOL (ETHANOL) 0.005 % (0.000-0.010); GLOMERULAR FILTRATION RATE > 60.0 (>56); GLUCOSE, FASTING 483 MG/DL (70-100); MB/CK RELATIVE INDEX 2.21 (< OR =4); POTASSIUM SERUM 4.4 MEQ/L (3.5-5.1); SALICYLATE LEVEL < 1.7 MG/DL (5.0-30.0); SODIUM LEVEL 135 MEQ/L (136-145); THYROID STIMULATING HORMONE 0.751 uIU/ML (0.358-3.740); TOTAL PROTEIN 6.6 GM/DL (6.4-8.2); TROPONIN I < 0.02 NG/ML (< 0.10)
[2020-09-14 05:16] LABS: AMPHETAMINES LEVEL URINE NEGATIVE (NEGATIVE); BARBITURATES URINE NEGATIVE (NEGATIVE); BENZODIAZEPINES URINE NEGATIVE (NEGATIVE); CANNABINOIDS URINE NEGATIVE (NEGATIVE); COCAINE METABOLITE URINE NEGATIVE (NEGATIVE); METHADONE URINE NEGATIVE (NEGATIVE); OPIATES URINE NEGATIVE (NEGATIVE); PHENCYCLIDINE URINE NEGATIVE (NEGATIVE)
--- NOTE | 2020-09-14 05:16 | REPVR ---
PROCEDURE INFORMATION: Exam: XR Chest, 1 View Exam date and time: 09/14/20 (4:25am) Age: 55 years old Clinical indication: SOB. Altered mental status. TECHNIQUE: Imaging protocol: Portable CXR Views: 1 view COMPARISON: Portable CXR of 08/30/20 FINDINGS: Comparison is made with a portable CXR done on 08/30/20. The patient is slightly rotated to an MARCOS projection. Stable cardiomegaly, with left ventricular prominence. No focal infiltrates. No pleural effusions. No gross cardiac failure. IMPRESSION: No acute chest pathology. A similar appearance was noted 2 weeks ago. Electronically signed by: Naya Duncan On 09/14/2020 05:16:16 AM
[2020-09-14 05:21] LABS: OSMOLALITY SERUM 306 MOSM/KG (275-295)
[2020-09-14] MEDS ORDERED: KETOROLAC 30 MG/ML 1ML VIAL IV ONE (06:30)
[2020-09-14] MEDS ORDERED: HumuLIN R (REGULAR) INSULIN (NovoLIN R) **100U/ML** PER UNIT SC ONE (06:30)
[2020-09-14 10:45] VITALS: BP 115/70
--- NOTE | 2020-09-15 18:51 | ECGEPIP ---
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
== END 2020-09-14 10:48 | disposition home or self-care (01) ==
LOC: M ED 03:59
DX: E11.65 Type 2 diabetes mellitus with hyperglycemia (principal); Z76.5 Malingerer [conscious simulation]; Z91.19 Patient's noncompliance with other medical treatment and regimen; Z91.010 Allergy to peanuts; Z91.018 Allergy to other foods; J30.9 Allergic rhinitis, unspecified; Z79.899 Other long term (current) drug therapy; Z79.84 Long term (current) use of oral hypoglycemic drugs
CPT/HCPCS: 36600; 71045; 80048; 80076; 80307; 82010; 82550; 82553; 82803; 83605; 83930; 84443; 85025; 93005; 93041; 96361; 96374; 99285; G0480; J1885; U0002

== ENCOUNTER 2021-03-23 20:13 | Emergency (ER) | payer OTHER ==
[~2021-03-23] VITALS: Ht 170.2 cm; Wt 81.8 kg
[~2021-03-23 20:13] MED LIST changes: +ASPI-569 PO; -ASPI81TAEC PO; +COMP1SUP2; -DOK100TA PO; +DOK100TA2 PO; +GABA-283 PO; -GABA-845 PO; +LIDO5DIS41; -LISI-542 PO; +LISI-898 PO; +LISI10TA22; +LISI10TA22 PO; -LISI10TA4 PO; -LISI40TA; -LISI40TA PO; +LISI40TA4; +LISI40TA4 PO; +METF500T13; +ONDA4TAB6; +PROC25SU24
[2021-03-23 21:14] LABS: BASO # 0.1 10^3/uL (0.0-0.2); BASO % 0.8 % (0.0-1.0); EOS # 0.3 10^3/uL (0.0-0.5); EOS % 2.8 % (0.0-3.0); HEMATOCRIT 36.5 % (42.0-52.0); HEMOGLOBIN 12.8 g/dl (13.5-17.5); LYMPH % 31.3 % (24.0-44.0); MEAN CORPUSCULAR HEMOGLOBIN 28.6 pg (27.0-33.0); MEAN CORPUSCULAR HGB CONC 35.1 g/dl (32.0-36.5); MEAN CORPUSCULAR VOLUME 81.7 fl (80.0-96.0); MONO # 0.7 10^3/uL (0.0-0.8); MONO % 6.8 % (2.0-8.0); NEUTROPHILS # 5.6 10^3/uL (1.5-8.5); NEUTROPHILS % 58.1 % (36.0-66.0); PLATELET COUNT, AUTOMATED 218 10^3/uL (150-450); RED BLOOD COUNT 4.47 10^6/uL (4.30-6.10); WHITE BLOOD COUNT 9.6 10^3/uL (4.0-10.0)
[2021-03-23 21:20] LABS: BLOOD UREA NITROGEN 15 MG/DL (7-18); CALCIUM LEVEL 8.7 MG/DL (8.5-10.1); CARBON DIOXIDE LEVEL 33 MEQ/L (21-32); CHLORIDE LEVEL 100 MEQ/L (98-107); CPK CREATINE PHOSPHOKINASE 102 U/L (39-308); CREATININE FOR GFR 1.05 MG/DL (0.70-1.30); GLOMERULAR FILTRATION RATE > 60.0 (>56); GLUCOSE, FASTING 326 MG/DL (70-100); POTASSIUM SERUM 4.4 MEQ/L (3.5-5.1); SODIUM LEVEL 135 MEQ/L (136-145)
[2021-03-23] MEDS ORDERED: NS 1,000 ML IV ONE (21:50)
[2021-03-23] MEDS ORDERED: METOCLOPRAMIDE INJ 10MG/2ML VIAL (J2765 PER 1) IV ONE (22:25)
[2021-03-24 00:29] VITALS: BP 134/81
--- NOTE | 2021-03-24 20:29 | ECGEPIP ---
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
== END 2021-03-24 01:09 | disposition home or self-care (01) ==
LOC: M ED 20:13
DX: R11.2 Nausea with vomiting, unspecified (principal); E11.9 Type 2 diabetes mellitus without complications; E78.5 Hyperlipidemia, unspecified; Z79.4 Long term (current) use of insulin; Z91.010 Allergy to peanuts; Z91.018 Allergy to other foods; Z91.048 Other nonmedicinal substance allergy status; Z91.14 Patient's other noncompliance with medication regimen
CPT/HCPCS: 80048; 81001; 82550; 85025; 93005; 93041; 94760; 96361; 96374; 99284; J2765

== ENCOUNTER 2021-05-18 13:12 | Observation (INO) | payer OTHER ==
[~2021-05-18] VITALS: Ht 170.2 cm; Wt 70.7 kg
[~2021-05-18 13:12] MED LIST changes: +OMEP40CA4 PO; -OMEP40CA97 PO
[2021-05-18 13:34] LABS: VENOUS HCO3 24.3 MEQ/L (23.0-27.0); VENOUS O2 SATURATION 90.4 % (60.0-80.0); VENOUS PARTIAL PRESSURE CO2 47.4 mmHg (38.0-50.0); VENOUS PARTIAL PRESSURE O2 61.2 mmHg (30.0-50.0); VENOUS PH 7.327 UNITS (7.330-7.430); VENOUS STANDARD HCO3 22.6 MEQ/L; VENOUS TOTAL CO2 25.7 MEQ/L (24.0-28.0)
[2021-05-18 13:44] LABS: BASO # 0.1 10^3/uL (0.0-0.2); BASO % 0.9 % (0.0-1.0); EOS # 0.2 10^3/uL (0.0-0.5); EOS % 3.4 % (0.0-3.0); HEMATOCRIT 37.8 % (42.0-52.0); LYMPH # 2.3 10^3/uL (1.5-5.0); LYMPH % 33.8 % (24.0-44.0); MEAN CORPUSCULAR HEMOGLOBIN 28.3 pg (27.0-33.0); MEAN CORPUSCULAR HGB CONC 34.4 g/dl (32.0-36.5); MEAN CORPUSCULAR VOLUME 82.2 fl (80.0-96.0); MONO # 0.5 10^3/uL (0.0-0.8); MONO % 7.1 % (2.0-8.0); NEUTROPHILS # 3.8 10^3/uL (1.5-8.5); NEUTROPHILS % 54.7 % (36.0-66.0); PLATELET COUNT, AUTOMATED 195 10^3/uL (150-450); WHITE BLOOD COUNT 6.9 10^3/uL (4.0-10.0)
--- NOTE | 2021-05-18 14:19 | REP ---
INDICATION: Syncope/near-syncope. COMPARISON: Comparison chest x-ray September 14, 2020. TECHNIQUE: Portable upright AP chest radiograph. FINDINGS: The lungs are well inflated and free of infiltrate. Pleural angles are sharp. Heart size is normal. Pulmonary vasculature is not increased. EKG monitoring electrodes overlie the chest. There are surgical clips in right upper quadrant. IMPRESSION: No active disease. <Electronically signed by Shawn Camacho > 05/18/21 [id number]
--- NOTE | 2021-05-18 14:23 | REPVR ---
PROCEDURE INFORMATION: Exam: CT Head Without Contrast Exam date and time: 05/18/2021 1:52 PM Age: 56 years old Clinical indication: Other: Syncope TECHNIQUE: Imaging protocol: Computed tomography of the head without contrast. Radiation optimization: All CT scans at this facility use at least one of these dose optimization techniques: automated exposure control; mA and/or kV adjustment per patient size (includes targeted exams where dose is matched to clinical indication); or iterative reconstruction. COMPARISON: CT Head without contrast 06/11/2019 4:24 PM FINDINGS: Brain: There is no acute cortical infarction, intracranial hemorrhage or mass. Cerebral ventricles: No ventriculomegaly. Paranasal sinuses: There is no significant mucoperiosteal thickening or air-fluid levels in the visualized portion of the paranasal sinuses. Mastoid air cells: The middle ear cavities and mastoid air cells are clear. Bones/joints: Unremarkable. No acute fracture. Soft tissues: There appear to be multiple areas of increased density within the scalp which may represent sebaceous cysts and or scarring among other etiologies. IMPRESSION: No acute intracranial findings. Electronically signed by: Marsha Mcguire On 05/18/2021 14:23:21 PM
[2021-05-18 14:38] LABS: BLOOD UREA NITROGEN 13 MG/DL (7-18); CALCIUM LEVEL 8.8 MG/DL (8.5-10.1); CARBON DIOXIDE LEVEL 25 MEQ/L (21-32); CHLORIDE LEVEL 105 MEQ/L (98-107); CK-MB VALUE MASS 2.3 NG/ML (<3.6); CPK CREATINE PHOSPHOKINASE 136 U/L (39-308); CREATININE FOR GFR 1.11 MG/DL (0.70-1.30); GLOMERULAR FILTRATION RATE > 60.0 (>56); GLUCOSE, FASTING 388 MG/DL (70-100); MAGNESIUM LEVEL 2.2 MG/DL (1.8-2.4); MB/CK RELATIVE INDEX 1.69 (< OR =4); POTASSIUM SERUM 4.7 MEQ/L (3.5-5.1); SODIUM LEVEL 137 MEQ/L (136-145); THYROID STIMULATING HORMONE 0.672 uIU/ML (0.358-3.740); TROPONIN I < 0.02 NG/ML (< 0.10)
[2021-05-18] MEDS ORDERED: METOPROLOL TART 25 MG TABLET PO ONE (15:00)
[2021-05-18] MEDS ORDERED: DEXTROSE 50% 50 ML SYRINGE IV PRN (16:45)
[2021-05-18] MEDS ORDERED: GLUCAGON INJ 1MG VIAL SC PRN (16:45)
[2021-05-18] MEDS ORDERED: MOM 30ML SUSPENSION UDC PO PRN (16:45)
[2021-05-18] MEDS ORDERED: GLUCOSE 4GM CHEW TABLET PO PRN (16:45)
[2021-05-18] MEDS ORDERED: ACETAMINOPHEN TAB 650MG DOSE (2X325MG) PO PRN (16:45)
--- NOTE | 2021-05-18 16:57 | ECGEPIP ---
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
--- NOTE | 2021-05-18 17:12 | HPEPDOC ---
[facility] Medical History & Physical Date of Admission May 18, 2021 Date of Service: May 18, 2021 History and Physical Chief complaint: Who presented to the hospital after he experienced lightheadedness, weakness and was helped down while standing in line at the [facility] History of present illness: Patient is a 56-year-old male with past medical history of HTN, CAD, IDDM2, DLP, who has stopped all his medications 2 years ago and has not seen any provider since that point. . He is presented to the hospital, brought in by EMS after he experienced a pre-syncopal event while standing in line. Patient reports that this afternoon he was standing in line at the [facility] waiting for lunch when he began to experience lightheadedness became wobbly and was helped down into a chair by surrounding staff. He reported that his last meal was yesterday evening and didnt eat breakfast. Patient denied any head trauma, loss of consciousness and reports that he remained awake throughout the entire event. Staff had helped him into a chair and provided him with water, then contacted EMS. Currently patient denies any headache, nausea, vomiting, chest pain, shortness breath, cough, palpitations, abdominal pain consultation, diarrhea, or urinary discomfort. He denies any recent fevers or chills. Denies any changes in his weight or appetite. Past Medical History: HTN, CAD, IDDM2, DLP Past Surgical History: ERCP and cholecystectomy Right mayorga surgery Allergies: See below Medications: See below Family History: - Patient reports his father was at early age unsure of his mothers past medical history Social History: - Denies the use of alcohol, tobacco or illicit drugs - Denies recent travel or sick contacts - Lives alone - Occupation; patient reports that he used to work for the [email or web address] and travel over the last 11 years. Currently he is on [employer] Review of Systems: 10 point review of systems complete, all negative otherwise stated in HPI Physical exam: - Vitals: BP [171/107], HR [91], RR [18], Sat [98%RA], Temp [97.0F] - General: Lying in bed, No acute distress, Speaking in full sentences, AAOx3 - HEENT: NC, AT, PERRLA, missing teeth - CVS: RRR, +S1S2 - Lungs: Fair air entry bilaterally, No appreciable wheezing / rales / rhonchi - Abdomen: Soft, Non-distended, Non-tender - Extremities: No lower extremity edema, No calf tenderness - Neuro: No focal motor or sensory deficit; appears to be weak diffusely - Skin: No visible rashes Labs: See below Imaging: CXR 05/18: No active disease. CT Head 05/18: No acute intracranial findings. EKG: See below Assessment and Plan: Syncope / Pre-syncope - Patient reports that he felt lightheaded and was helped into a chair while he was waiting in line for lunch - Patient denied any loss of consciousness or head trauma - Review of systems is negative for any lightheadedness, dizziness, chest pain, shortness of breath - Patient is hemodynamically stable and afebrile - Patients been noncompliant with all his medications over last 2 years - Lab work reviewed - Troponin x1 negative; will continue to trend - Imaging noted above - EKG reviewed consistent with prior - Will check electrolytes, HBA1c, ECHO - Will start Telemetry monitoring - See below (Will optimize HTN / DM2) HTN - Hypertensive urgency - Patients BP in ER is in 180s - Has received Lisinopril 10 / Metoprolol 25 in the ER - Will c/w Lisinopril / Metropole based on 2019 medications; will adjust as needed CAD - Patient reported that he had a heart attack in 2010 without any stent placements when he was in [place] - Will start ASA 81 IDDM2 - Will check A1c - Will start patient on ISS, however will likely start Metformin on discharge DLP - Will check fasting lipid profile - Will start Atorvastatin DVT prophylaxis - Will start Heparin Code Status: - Full code Vital Signs Vital Signs Date Time Temp Pulse Resp B/P (MAP) Pulse Ox O2 Delivery O2 Flow Rate FiO2 05/18/21 17:00 80 160/103 (122) 99 05/18/21 15:19 97.0 18 Room Air Laboratory Data Labs 24H Laboratory Tests 2 05/18/21 13:25: Immature Granulocyte % (Auto) 0.1, Neutrophils (%) (Auto) 54.7, Lymphocytes (%) (Auto) 33.8, Monocytes (%) (Auto) 7.1, Eosinophils (%) (Auto) 3.4H, Basophils (%) (Auto) 0.9, Neutrophils # (Auto) 3.8, Lymphocytes # (Auto) 2.3, Monocytes # (Auto) 0.5, Eosinophils # (Auto) 0.2, Basophils # (Auto) 0.1, Nucleated Red Blood Cells % (auto) 0.0, Blood Gas Bicarbonate Standard 22.6, Venous Blood pH 7.327L, Venous Blood Partial Pressure CO2 47.4, Venous Blood Partial Pressure O2 61.2H, Venous Blood Total Carbon Dioxide 25.7, Venous Blood HCO3 24.3, Venous Blood Oxygen Saturation 90.4H, Venous Blood Base Excess -2.0, Anion Gap 7L, Glomerular Filtration Rate > 60.0, Lactic Acid Level 1.5, Calcium Level 8.8, Magnesium Level 2.2, Total Creatine Kinase 136, Creatine Kinase MB 2.3, Creatine Kinase MB Relative Index 1.69, Troponin I < 0.02, Thyroid Stimulating Hormone (TSH) 0.672 CBC/BMP Laboratory Tests 05/18/21 13:25 Home Medications No Active Prescriptions or Reported Meds Allergies Coded Allergies: Olives (Verified Allergy, Severe, THROAT CLOSES/SWELLING , 05/18/21) Peanut (Verified Allergy, Severe, PEANUT OIL/BUTTER=THROAT CLOSES/DYSPNEA, 05/18/21) Grass (Verified Allergy, Mild, 05/18/21) SEASONAL ALLERGIES (Verified Allergy, Mild, 05/18/21) ADY SHANNON MD May 18, 2021 17:12
[2021-05-18 17:32] LABS: ALT/SGPT 20 U/L (12-78); BILIRUBIN,DIRECT < 0.1 MG/DL (0.0-0.2); BILIRUBIN,TOTAL 0.4 MG/DL (0.2-1.0); PHOSPHORUS LEVEL 3.6 MG/DL (2.5-4.9)
[2021-05-18 17:38] LABS: TOTAL 25(OH) VITAMIN D 23.4 NG/ML (30.0-100.0)
[2021-05-18 17:39] LABS: FOLATE > 24.0 NG/ML; VITAMIN B12 LEVEL 682 PG/ML
[2021-05-18 17:42] LABS: HEMOGLOBIN A1c 12.7 %
[2021-05-18] MEDS: HumaLOG INSULIN (NovoLOG) PER UNIT SC SCH (17:50)
[2021-05-18 19:12] LABS: RSV AMPLIFICATION NEGATIVE (NEGATIVE)
[2021-05-18 19:25] LABS: CK-MB VALUE MASS 2.8 NG/ML (<3.6); CPK CREATINE PHOSPHOKINASE 95 U/L (39-308); MB/CK RELATIVE INDEX 2.95 (< OR =4); TROPONIN I < 0.02 NG/ML (< 0.10)
[2021-05-18] MEDS: METOPROLOL TART 25 MG TABLET PO SCH ×2 (19:32→21:28)
[2021-05-18] MEDS: DOCUSATE SODIUM 100MG CAPSULE PO SCH (21:00)
[2021-05-18] MEDS ORDERED: HumaLOG INSULIN (NovoLOG) PER UNIT SC SCH (21:00)
[2021-05-18] MEDS: HEPARIN SOD (PORCINE) 5000UNITS/ML 1ML VIAL/SYRINGE SC SCH (21:30)
[2021-05-18 23:55] VITALS: BP 132/84
[2021-05-19 01:51] LABS: CK-MB VALUE MASS 1.8 NG/ML (<3.6); CPK CREATINE PHOSPHOKINASE 85 U/L (39-308); MB/CK RELATIVE INDEX 2.12 (< OR =4); TROPONIN I < 0.02 NG/ML (< 0.10)
[2021-05-19 04:42] VITALS: BP 125/73
[2021-05-19] MEDS: HEPARIN SOD (PORCINE) 5000UNITS/ML 1ML VIAL/SYRINGE SC SCH ×2 (05:01→14:00)
[2021-05-19] MEDS: METOPROLOL TART 25 MG TABLET PO SCH ×2 (05:02→14:00)
[2021-05-19 05:43] LABS: BASO # 0.1 10^3/uL (0.0-0.2); BASO % 0.8 % (0.0-1.0); EOS # 0.3 10^3/uL (0.0-0.5); EOS % 3.4 % (0.0-3.0); HEMATOCRIT 32.5 % (42.0-52.0); HEMOGLOBIN 11.4 g/dl (13.5-17.5); LYMPH # 3.5 10^3/uL (1.5-5.0); LYMPH % 47.4 % (24.0-44.0); MEAN CORPUSCULAR HEMOGLOBIN 28.7 pg (27.0-33.0); MEAN CORPUSCULAR HGB CONC 35.1 g/dl (32.0-36.5); MEAN CORPUSCULAR VOLUME 81.9 fl (80.0-96.0); MONO # 0.5 10^3/uL (0.0-0.8); MONO % 6.9 % (2.0-8.0); NEUTROPHILS # 3.1 10^3/uL (1.5-8.5); NEUTROPHILS % 41.4 % (36.0-66.0); PLATELET COUNT, AUTOMATED 181 10^3/uL (150-450); RED BLOOD COUNT 3.97 10^6/uL (4.30-6.10); WHITE BLOOD COUNT 7.4 10^3/uL (4.0-10.0)
[2021-05-19 06:12] LABS: BLOOD UREA NITROGEN 16 MG/DL (7-18); CALCIUM LEVEL 8.6 MG/DL (8.5-10.1); CARBON DIOXIDE LEVEL 27 MEQ/L (21-32); CHLORIDE LEVEL 105 MEQ/L (98-107); CHOLESTEROL LEVEL 132 MG/DL (<200); CHOLESTEROL RISK RATIO 3.771 (<5); GLOMERULAR FILTRATION RATE > 60.0 (>56); GLUCOSE, FASTING 331 MG/DL (70-100); HDL CHOLESTEROL 35 MG/DL (>40); LDL CHOLESTEROL 59 MG/DL (<100); MAGNESIUM LEVEL 2.1 MG/DL (1.8-2.4); NON-HDL-C 97 MG/DL; POTASSIUM SERUM 4.1 MEQ/L (3.5-5.1); SODIUM LEVEL 138 MEQ/L (136-145); TRIGLYCERIDES LEVEL 192 MG/DL (<150)
[2021-05-19] MEDS: HumaLOG INSULIN (NovoLOG) PER UNIT SC SCH ×2 (07:59→13:54)
[2021-05-19 08:00] VITALS: BP 102/76
[2021-05-19] MEDS: DOCUSATE SODIUM 100MG CAPSULE PO SCH (08:00)
[2021-05-19] MEDS ORDERED: ATOR1TAB21 PO (08:02)
[2021-05-19] MEDS ORDERED: METF10004 PO (08:02)
[2021-05-19] MEDS ORDERED: LISI20TA33 PO (08:02)
[2021-05-19] MEDS ORDERED: ASPI-551 PO (08:02)
[2021-05-19] MEDS ORDERED: METO1TAB87 PO ×2 (08:02→09:30)
[2021-05-19] MEDS ORDERED: ASPIRIN 81MG ENTERIC TABLET PO SCH (09:00)
[2021-05-19] MEDS ORDERED: ATORVASTATIN 20 MG TAB PO SCH (09:00)
[2021-05-19] MEDS ORDERED: LISI-898 PO (09:22)
--- NOTE | 2021-05-19 09:31 | DS.PDOC ---
Discharge Summary General Date of Admission May 18, 2021 at 13:13 Date of Discharge 05/19/2021 Discharge Summary PROCEDURES PERFORMED DURING STAY: [None]. ADMITTING DIAGNOSES / DISCHARGE DIAGNOSES: s/p Syncope / Pre-syncope - possibly 2/2 hypoglycemia HTN CAD IDDM2 DLP DVT prophylaxis COMPLICATIONS/CHIEF COMPLAINT: Pre-Syncope. HISTORY OF PRESENT ILLNESS: Patient is a 56-year-old male with past medical history of HTN, CAD, IDDM2, DLP, who has stopped all his medications 2 years ago and has not seen any provider since that point. He is presented to the hospital, brought in by EMS after he experienced a pre-syncopal event while standing in line. Patient reports that this afternoon he was standing in line at the [facility] waiting for lunch when he began to experience lightheadedness became wobbly and was helped down into a chair by surrounding staff. He reported that his last meal was yesterday evening and didnt eat breakfast. Patient denied any head trauma, loss of consciousness and reports that he remained awake throughout the entire event. Staff had helped him into a chair and provided him with water, then contacted EMS. Patient was seen and examined at the bedside. Currently denies any chest pain, shortness of breath, palpitations, nausea, vomiting, abdominal pain. He was eating breakfast without any difficulty. HOSPITAL COURSE: s/p Syncope / Pre-syncope - possibly 2/2 hypoglycemia - Patient reports that he felt lightheaded and was helped into a chair while he was waiting in line for lunch - Patients been noncompliant with all his medications over last 2 years - Denied any loss of consciousness or head trauma - BP better controlled; - Lab work reviewed - Troponin x3 negative - Imaging noted above - EKG reviewed consistent with prior - See below (Will optimize HTN / DM2) - Will establish primary care provider and have outpatient follow-up within 7 days HTN - s/p Hypertensive urgency - Up of her is better controlled this morning - Has received Lisinopril 10 / Metoprolol 25 in the ER - c/w Lisinopril / Metoprolol on discharge CAD - Patient reported that he had a heart attack in 2010 without any stent placements when he was in [place] - c/w ASA 81 IDDM2 - A1c 12.7 - c/w ISS while inpatient - Will start Metformin on discharge; will need follow up A1c on discharge - Will have outpatient follow-up with primary care provider within the next 7 days; who we will help establish DLP - Fasting lipid profile noted - c/w Atorvastatin DVT prophylaxis - c/w Heparin DISCHARGE MEDICATIONS: Please see below. ALLERGIES: Please see below. PHYSICAL EXAMINATION ON DISCHARGE: Vitals (See below) General: Lying in bed, no acute distress, comfortable, AAOx3 HEENT: NC, AT CVS: RRR, +S1S2 Lungs: Fair air entry b/l, no evidence of wheezing, rales or rhonchi Abdomen: Soft, ND, NT Extremities: No evidenced of edema, - Calf tenderness LABORATORY DATA: Please see below. IMAGING: CXR 05/18: No active disease. CT Head 05/18: No acute intracranial findings. ACTIVITY: [As tolerated]. DISCHARGE PLAN: Follow-up with primary care provider within the next 7 days Remain compliant with treatment plan and medications Return to the ER if you experience any problems DISPOSITION: Home with services DISCHARGE CONDITION: [Stable]. TIME SPENT ON DISCHARGE: 25 minutes. Vital Signs/I&Os Vital Signs Date Time Temp Pulse Resp B/P (MAP) Pulse Ox O2 Delivery O2 Flow Rate FiO2 05/19/21 08:00 102/76 05/19/21 05:02 82 05/19/21 04:42 98.1 18 99 Room Air Laboratory Data Labs 24H Laboratory Tests 2 05/18/21 13:25: Immature Granulocyte % (Auto) 0.1, Neutrophils (%) (Auto) 54.7, Lymphocytes (%) (Auto) 33.8, Monocytes (%) (Auto) 7.1, Eosinophils (%) (Auto) 3.4H, Basophils (% ) (Auto) 0.9, Neutrophils # (Auto) 3.8, Lymphocytes # (Auto) 2.3, Monocytes # (Auto) 0.5, Eosinophils # (Auto) 0.2, Basophils # (Auto) 0.1, Nucleated Red Blood Cells % (auto) 0.0, Blood Gas Bicarbonate Standard 22.6, Venous Blood pH 7.327L, Venous Blood Partial Pressure CO2 47.4, Venous Blood Partial Pressure O2 61.2H, Venous Blood Total Carbon Dioxide 25.7, Venous Blood HCO3 24.3, Venous Blood Oxygen Saturation 90.4H, Venous Blood Base Excess -2.0, Anion Gap 7L, Glomerular Filtration Rate > 60.0, Estimated Mean Plasma Glucose 318H, Hemoglobin A1c 12.7, Lactic Acid Level 1.5, Calcium Level 8.8, Phosphorus Level 3.6, Magnesium Level 2.2, Total Bilirubin 0.4, Direct Bilirubin < 0.1, Aspartate Amino Transf (AST/SGOT) 22, Alanine Aminotransferase (ALT/SGPT) 20, Alkaline Phosphatase 54, Total Creatine Kinase 136, Creatine Kinase MB 2.3, Creatine Kinase MB Relative Index 1.69, Troponin I < 0.02, Total Protein 7.0, Albumin 3.0L, Albumin/Globulin Ratio 0.8, Vitamin B12 Level 682, 25-Hydroxy Vitamin D Total 23.4L, Folate > 24.0, Thyroid Stimulating Hormone (TSH) 0.672 05/18/21 17:42: Bedside Glucose (Misc Panel) 350H 05/18/21 17:48: Urine Color YELLOW, Urine Appearance HAZY, Urine pH 5.0, Urine Specific [place] 1.018, Urine Protein NEGATIVE, Urine Glucose (UA) 3+H, Urine Ketones NEGATIVE, Urine Blood NEGATIVE, Urine Nitrite NEGATIVE, Urine Bilirubin NEGATIVE, Urine Urobilinogen 0.2, Urine Leukocyte Esterase NEGATIVE, Urine WBC (Auto) 2, Urine R BC (Auto) 1, Urine Hyaline Casts (Auto) 1, Urine Bacteria (Auto) 3+H, Urine Squamous Epithelial Cells 0, Urine Mucus (Auto) SMALL, Urine Sperm (Auto) , Coronavirus (COVID-19)(PCR) NEGATIVE, Influenza Type A (RT-PCR) NEGATIVE, Influenza Type B (RT-PCR) NEGATIVE, Respiratory Syncytial Virus (PCR) NEGATIVE 05/18/21 18:43: Total Creatine Kinase 95, Creatine Kinase MB 2.8, Creatine Kinase MB Relative Index 2.95, Troponin I < 0.02 05/18/21 21:27: Bedside Glucose (Misc Panel) 264H 05/19/21 00:20: Methicillin-Resist S.aureus DNA PCR NOT DETECTED 05/19/21 00:44: Total Creatine Kinase 85, Creatine Kinase MB 1.8, Creatine Kinase MB Relative Index 2.12, Troponin I < 0.02 05/19/21 05:10: Immature Granulocyte % (Auto) 0.1, Neutrophils (%) (Auto) 41.4, Lymphocytes (%) (Auto) 47.4H, Monocytes (%) (Auto) 6.9, Eosinophils (%) (Auto) 3.4H, Basophils (%) (Auto) 0.8, Neutrophils # (Auto) 3.1, Lymphocytes # (Auto) 3.5, Monocytes # (Auto) 0.5, Eosinophils # (Auto) 0.3, Basophils # (Auto) 0.1, Nucleated Red Blood Cells % (auto) 0.0, Anion Gap 6L, Glomerular Filtration Rate > 60.0, Calcium Level 8.6, Magnesium Level 2.1, Triglycerides Level 192H, Total Cholesterol 132, LDL Cholesterol 59, Non-HDL Cholesterol (LDL + VLDL) 97, Total HDL Cholesterol 35L, Cholesterol/HDL Ratio 3.771 CBC/BMP Laboratory Tests 05/18/21 13:25 05/19/21 05:10 FSBS Laboratory Tests Test 05/18/21 17:42 05/18/21 21:27 Range/Units Bedside Glucose (Misc Panel) 350 264 70-105 MG/DL Discharge Medications Scheduled Aspirin (Aspirin EC) 81 Mg Tablet.dr, 81 MG PO DAILY Atorvastatin Calcium (Atorvastatin Calcium) 20 Mg Tablet, 40 MG PO DAILY Lisinopril (Lisinopril) 20 Mg Tablet, 20 MG PO DAILY Metformin HCl (Metformin HCl) 1,000 Mg Tablet, 1 GRAM PO BID Metoprolol Tartrate (Metoprolol Tartrate) 25 Mg Tablet, 25 MG PO TID Allergies Coded Allergies: Olives (Verified Allergy, Severe, THROAT CLOSES/SWELLING , 05/18/21) Peanut (Verified Allergy, Severe, PEANUT OIL/BUTTER=THROAT CLOSES/DYSPNEA, 05/18/21) Grass (Verified Allergy, Mild, 05/18/21) SEASONAL ALLERGIES (Verified Allergy, Mild, 05/18/21) ADY SHANNON MD May 19, 2021 09:31
[2021-05-19 12:00] VITALS: BP 160/86
[2021-05-19 14:00] VITALS: BP 112/68
[2021-05-19] MEDS ORDERED: lisinopriL 5 MG TAB PO ONE (14:00)
[2021-05-19] MEDS ORDERED: BLOOKIT21 XX (14:50)
[2021-05-19] MEDS ORDERED: LANC30MI XX (14:50)
[2021-05-19] MEDS ORDERED: ALCOPAD25 TOP (14:50)
[2021-05-19] MEDS ORDERED: BLOOKIT XX (14:50)
[2021-05-19] MEDS ORDERED: GLUC1TES2 XX (14:50)
== END 2021-05-19 15:45 | disposition home health service (06) ==
LOC: M ED 13:12 → EDBD 13:12 → M ED INP 13:13 → M PCU 23:58
PROVIDERS: ADMIT Internal Medicine; ATTEND Internal Medicine
DX: R55 Syncope and collapse (principal); I10 Essential (primary) hypertension; I25.10 Atherosclerotic heart disease of native coronary artery without angina pectoris; E11.9 Type 2 diabetes mellitus without complications; E78.5 Hyperlipidemia, unspecified; I48.91 Unspecified atrial fibrillation; I25.2 Old myocardial infarction; F41.9 Anxiety disorder, unspecified; Z91.19 Patient's noncompliance with other medical treatment and regimen; Z79.899 Other long term (current) drug therapy; Z79.82 Long term (current) use of aspirin; Z79.84 Long term (current) use of oral hypoglycemic drugs; Z91.010 Allergy to peanuts; J30.1 Allergic rhinitis due to pollen; Z91.018 Allergy to other foods
CPT/HCPCS: 36415; 70450; 71045; 80048; 80061; 80076; 81001; 82306; 82550; 82553; 82607; 82746; 82803; 83036; 83605; 83735; 84100; 84443; 85025; 87631; 87641; 93005; 93041; 96372; 99285; J1644

== ENCOUNTER 2021-05-24 12:57 | Inpatient (IN) | payer OTHER ==
[~2021-05-24] VITALS: Ht 170.2 cm; Wt 71.3 kg
[~2021-05-24 12:57] MED LIST changes: +ALCOPAD25 TOP; +ASPI-551 PO; +ATOR1TAB21 PO; +BLOOKIT XX; +BLOOKIT21 XX; +GLUC1TES2 XX; +LANC30MI XX; +LISI20TA33 PO; +METF10004 PO; +METO1TAB87 PO
[2021-05-24 13:24] LABS: BASO # 0.1 10^3/uL (0.0-0.2); BASO % 0.8 % (0.0-1.0); EOS # 0.3 10^3/uL (0.0-0.5); EOS % 3.2 % (0.0-3.0); HEMATOCRIT 35.8 % (42.0-52.0); HEMOGLOBIN 12.6 g/dl (13.5-17.5); LYMPH # 2.9 10^3/uL (1.5-5.0); LYMPH % 33.9 % (24.0-44.0); MEAN CORPUSCULAR HEMOGLOBIN 28.6 pg (27.0-33.0); MEAN CORPUSCULAR HGB CONC 35.2 g/dl (32.0-36.5); MEAN CORPUSCULAR VOLUME 81.4 fl (80.0-96.0); MONO # 0.5 10^3/uL (0.0-0.8); MONO % 5.7 % (2.0-8.0); NEUTROPHILS # 4.7 10^3/uL (1.5-8.5); PLATELET COUNT, AUTOMATED 213 10^3/uL (150-450); WHITE BLOOD COUNT 8.4 10^3/uL (4.0-10.0)
[2021-05-24 13:59] LABS: ALBUMIN 3.1 GM/DL (3.2-5.2); ALT/SGPT 19 U/L (12-78); BILIRUBIN,DIRECT 0.1 MG/DL (0.0-0.2); BILIRUBIN,TOTAL 0.4 MG/DL (0.2-1.0); BLOOD UREA NITROGEN 9 MG/DL (7-18); CALCIUM LEVEL 8.3 MG/DL (8.5-10.1); CARBON DIOXIDE LEVEL 29 MEQ/L (21-32); CHLORIDE LEVEL 104 MEQ/L (98-107); CREATININE FOR GFR 1.11 MG/DL (0.70-1.30); GLOMERULAR FILTRATION RATE > 60.0 (>56); GLUCOSE, FASTING 316 MG/DL (70-100); POTASSIUM SERUM 4.2 MEQ/L (3.5-5.1); SODIUM LEVEL 138 MEQ/L (136-145); TOTAL PROTEIN 6.8 GM/DL (6.4-8.2)
[2021-05-24] MEDS ORDERED: LISI20TA33 PO (14:22)
[2021-05-24] MEDS ORDERED: ASPI81TA26 PO (14:22)
[2021-05-24] MEDS ORDERED: ATOR40TA75 PO (14:22)
[2021-05-24] MEDS: NS 1,000 ML IV SCH ×2 (15:47→22:46)
[2021-05-24 15:52] LABS: CK-MB VALUE MASS 2.1 NG/ML (<3.6); CPK CREATINE PHOSPHOKINASE 112 U/L (39-308); MB/CK RELATIVE INDEX 1.88 (< OR =4); TROPONIN I < 0.02 NG/ML (< 0.10)
--- NOTE | 2021-05-24 16:03 | REP ---
INDICATION: altered mental status. COMPARISON: 05/18/2021, 06/11/2019. TECHNIQUE: CT BRAIN PERFORMED IN THE AXIAL PLANE. CORONAL RECONSTRUCTION IMAGES ARE PERFORMED. FINDINGS: Lateral ventricles are midline symmetric and unchanged there is no abnormal dilatation. Third and 4th ventricles also grossly intact. I do not see any significant atrophy with appearance of sulci unchanged. Reyes-white differentiation is well maintained. Basal ganglia symmetric and normal. Cerebellum unchanged without mass and no posterior fossa hemorrhage seen. Basal cisterns intact. Bone windows show the mastoids and skull base to be intact. There is mucous retention cyst in the floor of the right maxillary antrum as seen on previous studies with the other sinuses clear. There is deviation of the nasal septum towards the right. The skull base bone windows and calvarium are unremarkable. There are multiple scattered densities in the scalp, unchanged from prior studies, that could be skin appendages such is sebaceous cyst or old scarring/posttraumatic change. IMPRESSION: 1. Negative noncontrast head CT for intracranial bleed, acute infarct, mass, mass effect or edema. 2. No fracture of the skull base or calvarium. There is a mucous retention cyst in the floor of the right maxillary sinus with the other sinuses clear. 3. Multiple of subcutaneous findings in the scalp as before likely skin appendages such is sebaceous cyst but old trauma could also give this effect. <Electronically signed by Carlos Hernández > 05/24/21 1600
--- NOTE | 2021-05-24 16:41 | REP ---
INDICATION: syncope. COMPARISON: Comparison chest x-ray May 18, 2021. TECHNIQUE: Two views.. FINDINGS: The lungs are well inflated and free of infiltrate. The pleural angles are sharp. The heart size is normal. Pulmonary vasculature is not increased. No significant bony abnormality is seen. EKG monitoring electrodes are present. IMPRESSION: Negative chest x-ray. <Electronically signed by Shawn Camacho > 05/24/21 [id number]
[2021-05-24 17:10] LABS: RSV AMPLIFICATION NEGATIVE (NEGATIVE)
--- NOTE | 2021-05-24 17:39 | ECGEPIP ---
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
[2021-05-24] MEDS ORDERED: ACETAMINOPHEN TAB 650MG DOSE (2X325MG) PO PRN (18:05)
[2021-05-24] MEDS ORDERED: METO25TA4 PO (18:14)
[2021-05-24] MEDS ORDERED: METF-877 PO (18:14)
[2021-05-24] MEDS ORDERED: GLUCOSE 4GM CHEW TABLET PO PRN ×2 (18:15)
[2021-05-24] MEDS ORDERED: DEXTROSE 50% 50 ML SYRINGE IV PRN ×3 (18:15)
[2021-05-24] MEDS ORDERED: GLUCAGON INJ 1MG VIAL SC PRN ×3 (18:15)
[2021-05-24] MEDS ORDERED: HumaLOG INSULIN (NovoLOG) PER UNIT SC SCH ×2 (21:00)
[2021-05-24] MEDS: HumaLOG INSULIN (NovoLOG) PER UNIT SC SCH (21:44)
[2021-05-25 00:20] VITALS: BP 152/88
[2021-05-25 06:00] VITALS: BP 146/88
[2021-05-25 06:17] LABS: HEMATOCRIT 31.2 % (42.0-52.0); HEMOGLOBIN 10.9 g/dl (13.5-17.5); MEAN CORPUSCULAR HEMOGLOBIN 28.4 pg (27.0-33.0); MEAN CORPUSCULAR HGB CONC 34.9 g/dl (32.0-36.5); MEAN CORPUSCULAR VOLUME 81.3 fl (80.0-96.0); PLATELET COUNT, AUTOMATED 198 10^3/uL (150-450); RED BLOOD COUNT 3.84 10^6/uL (4.30-6.10); WHITE BLOOD COUNT 7.5 10^3/uL (4.0-10.0)
[2021-05-25 06:38] LABS: BLOOD UREA NITROGEN 10 MG/DL (7-18); CARBON DIOXIDE LEVEL 28 MEQ/L (21-32); CHLORIDE LEVEL 105 MEQ/L (98-107); CREATININE FOR GFR 0.89 MG/DL (0.70-1.30); GLOMERULAR FILTRATION RATE > 60.0 (>56); GLUCOSE, FASTING 275 MG/DL (70-100); MAGNESIUM LEVEL 1.7 MG/DL (1.8-2.4); POTASSIUM SERUM 3.7 MEQ/L (3.5-5.1); SODIUM LEVEL 141 MEQ/L (136-145)
[2021-05-25] MEDS ORDERED: HumaLOG INSULIN (NovoLOG) PER UNIT SC SCH ×2 (07:30)
[2021-05-25] MEDS: HumaLOG INSULIN (NovoLOG) PER UNIT SC SCH ×4 (07:53→21:00)
[2021-05-25] MEDS: ENOXAPARIN 40MG/0.4ML SYRINGE (J1650 PER 10MG) SC SCH (07:55)
[2021-05-25] MEDS: ATORVASTATIN 20 MG TAB PO SCH (07:55)
[2021-05-25] MEDS: ASPIRIN 81 MG CHEW TABLET PO SCH (07:58)
--- NOTE | 2021-05-25 08:45 | HPEPDOC ---
[facility] Medical History & Physical Date of Admission May 24, 2021 Date of Service: May 24, 2021 Attending Physician: CESAR MEJIA MD History and Physical CHIEF COMPLAINT: Syncope HPI: 56-year-old M with past medical history of HTN, CAD, IDDM2, DLP, with a history of previously noted focal hypetrophy of the basal anterior ventricular septun without LV outlet obstruction in 2017, had stopped all his medications 2 years ago and admitted under observation 1 week ago for new-syncope and hypertension that resolved after admission and was restarted on antihypertensives and discharged home with plan for a new PCP and no TTE was done at the time, who now returns with witnessed floresita syncope and collapse and transient unresponsiveness. He was shopping at the [employer] when he suddenly felt lightheaded and like he was about to faint and so called his friend to come and take him to the ED and on the way in the car actually syncopized. On arrival to the ED, he was unresponsive and regained consciouness after being brought in to the ED on evaluation and denied any chest pain, palpitations, dyspnea, recent fever, chills, emesis, headaches, traumatic injury. He reportedly was back to baseline. Vitals were wnl, EKG non ischemic with NSR and LVH, troponin negative, CBC and BMP unremarkable except for noted hyperglycemia to 316. He had a head CT that was wnl without acute pathology and no evidence of hemorrhage, infarction, skill fractures or mass and a CXR was unremarkable with no acute pathology. He is now being admitted for syncope. He is presented to the hospital, brought in by EMS after he experienced a pre- syncopal event while standing in line. Past Medical History: HTN, CAD, IDDM2, DLP Past Surgical History: ERCP Cholecystectomy RLE surgery Allergies: See below Medications: See below Family History: Unsure of his parents' medical history - Father at a young age. Social History: Denies the use of alcohol, tobacco or illicit drugs Denies recent travel or sick contacts Review of Systems: 10 point review of systems was completed and grossly negative except the pertinent positives noted in the HPI Physical exam: Vitals: see below General: Sitting up in bed, No acute distress, Speaking in full sentences, AAOx3, conversation, appears comfortable HEENT: NC, AT, PERRLA, edentulous CVS: RRR, +S1S2, no noted murmurs Lungs: CTAB Abdomen: Soft, Non-distended, Non-tender Extremities: No lower extremity edema, No calf tenderness, WWP Neuro: No focal motor or sensory deficit, clear speech, moving all extremities. Skin: No noted rashes Labs and Imaging: As noted above. Please see below for full details. Assessment: 56-year-old M with past medical history of HTN, CAD, IDDM2, DLP, with a history of previously noted focal hypertrophy of the basal anterior ventricular septum without LV outlet obstruction in 2017, had stopped all his medications 2 years ago and admitted under observation 1 week ago for new-syncope and hypertension that resolved after admission and was restarted on antihypertensives and discharged home with plan for a new PCP and no TTE was done at the time, who now returned with witnessed floresita syncope now admitted for syncope investigation. Syncope: - Has a history of focal hypertrophy of the basal anterior ventricular septum without LV outlet obstruction in 2017 and non compliance with antihypertensives for 2y with potential worsening of LVH due to hypertensive disease which could have worsened this previously noted hypertrophy and potentiating syncopal episodes. Will order TTE -Troponin x1 negative, EKG was consistent with prior with no acute ischemic changes -CXR and CT head were unremarkable -Another concern is symptomatic hypotension given recently restarted antihypertensives and could have had some symptomatic hypotension. Initially vitals showed SBP 103. Will monitor. -Also possible could have been paroxysmal dysrhythmias, will place on telemetry -Electrolytes were wnl -Had no hypoglycemia with initial BG >300 -Hold antihypertensives for now, will restart tomorrow AM HTN - holding his lisinopril 20, metoprolol 25 BID - Will c/w Lisinopril / Metropole based on 2019 medications; will adjust as needed CAD - Patient reported a history of a heart attach in 2010, reports no surgery of PCI -Was recently started on ASA81 and lipitor, will continue NIDDM -hold home metformin -place on SSI AC/HS -FSBG AC/HS -hypoglycemia protocol -consistent carb diet with 2g sodium DLP -continue the recently started lipitor QD DVT prophylaxis -lovenox SC Vital Signs Vital Signs Date Time Temp Pulse Resp B/P (MAP) Pulse Ox O2 Delivery O2 Flow Rate FiO2 05/24/21 16:00 86 18 125/62 (83) 98 Room Air 7/21/21 12:57 98.2 Laboratory Data Labs 24H Laboratory Tests 2 05/24/21 13:03: Bedside Glucose (Misc Panel) 328H 05/24/21 13:09: Immature Granulocyte % (Auto) 0.4, Neutrophils (%) (Auto) 56.0, Lymphocytes (%) (Auto) 33.9, Monocytes (%) (Auto) 5.7, Eosinophils (%) (Auto) 3.2H, Basophils (%) (Auto) 0.8, Neutrophils # (Auto) 4.7, Lymphocytes # (Auto) 2.9, Monocytes # (Auto) 0.5, Eosinophils # (Auto) 0.3, Basophils # (Auto) 0.1, Nucleated Red Blood Cells % (auto) 0.0, Anion Gap 5L, Glomerular Filtration Rate > 60.0, Calcium Level 8.3L, Total Bilirubin 0.4, Direct Bilirubin 0.1, Aspartate Amino Transf (AST/SGOT) 12, Alanine Aminotransferase (ALT/SGPT) 19, Alkaline Phosphatase 45, Total Creatine Kinase 112, Creatine Kinase MB 2.1, Creatine Kinase MB Relative Index 1.88, Troponin I < 0.02, Total Protein 6.8, Albumin 3.1L, Albumin/Globulin Ratio 0.8, Thyroid Stimulating Hormone (TSH) 0.890 05/24/21 16:16: Coronavirus (COVID-19)(PCR) NEGATIVE, Influenza Type A (RT-PCR) NEGATIVE, Influenza Type B (RT-PCR) NEGATIVE, Respiratory Syncytial Virus (PCR) NEGATIVE CBC/BMP Laboratory Tests 05/24/21 13:09 Home Medications Scheduled Aspirin (Aspirin EC) 81 Mg Tablet.dr, 81 MG PO DAILY Atorvastatin Calcium (Atorvastatin Calcium) 40 Mg Tablet, 40 MG PO DAILY Lisinopril (Lisinopril) 20 Mg Tablet, 20 MG PO DAILY Metformin HCl (Metformin HCl) 1,000 Mg Tablet, 1,000 MG PO BID Metoprolol Tartrate (Metoprolol Tartrate) 25 Mg Tablet, 25 MG PO BID Allergies Coded Allergies: Olives (Verified Allergy, Severe, THROAT CLOSES/SWELLING , 05/18/21) Peanut (Verified Allergy, Severe, PEANUT OIL/BUTTER=THROAT CLOSES/DYSPNEA, 05/18/21) Grass (Verified Allergy, Mild, 05/18/21) SEASONAL ALLERGIES (Verified Allergy, Mild, 05/18/21) A-FIB/CHADSVASC A-FIB History Current/History of A-Fib/PAF?: No Current PO Anticoag Therapy: No Age/Risk Factor Scoring CHADSVASC: CHADSVASC Response (Comments) Value Age Risk Factor Age < 65 years old 0 Gender Risk Factor Male 0 Hx of CHF No 0 Hx of HTN Yes 1 Hx of Stroke/TIA/or VTE No 0 Hx of Diabetes Yes 1 Hx of Vascular Disease No 0 Total 2 Treatment Treatment ordered: NONE Reason Anticoagulant not given: Not indicated/[id number] CESAR MEJIA MD May 24, 2021 18:43
[2021-05-25] MEDS ORDERED: MAG SULF 1GM/100ML (MAG RUN) 1 GM in IV 1 EA IV ONE (09:00)
--- NOTE | 2021-05-25 10:25 | IPNPDOC ---
Text Note Date of Service The patient was seen on 05/25/21. NOTE Subjective: -No acute complaints Objective: General: Sitting up in bed, speaking in full sentences, appears comfortable HEENT: NC, AT, PERRLA, edentulous CVS: RRR, +S1S2, no noted murmurs Lungs: CTAB Abdomen: Soft, Non-distended, Non-tender Extremities: No lower extremity edema, No calf tenderness, WWP Neuro: No focal motor or sensory deficit, clear speech, moving all extremities. Skin: No noted rashes Labs: reviewed Mag 1.7 (repleted) Assessment: 56-year-old M with past medical history of HTN, CAD, IDDM2, DLP, with a history of previously noted focal hypertrophy of the basal anterior ventricular septum without LV outlet obstruction in 2016, had stopped all his medications 2 years ago and admitted under observation 1 week ago for new-syncope and hypertension t hat resolved after admission and was restarted on antihypertensives and discharged home with plan for a new PCP and no TTE was done at the time, who now returned with witnessed floresita syncope now admitted for syncope investigation. Syncope: - Has a history of focal hypertrophy of the basal anterior ventricular septum without LV outlet obstruction in 2017 and non compliance with antihypertensives for 2y with potential worsening of LVH due to hypertensive disease which could have worsened this previously noted hypertrophy and potentiating syncopal episodes. Will order TTE -Troponin x1 negative, EKG was consistent with prior with no acute ischemic changes -CXR and CT head were unremarkable -Will restart lisinopril at 10mg daily and titra -Also possible could have been paroxysmal dysrhythmias, on telemetry -Electrolytes check daily -Had no hypoglycemia with initial BG >300 HTN - reducing his lisinopril 20 to 10 this AM, holding metoprolol 25 BID and will restart as coreg likely tomorrow CAD - Patient reported a history of a heart attach in 2010, reports no surgery of PCI -Was recently started on ASA81 and lipitor, will continue NIDDM -hold home metformin -place on SSI AC/HS -FSBG AC/HS -hypoglycemia protocol -consistent carb diet with 2g sodium DLP -continue the recently started lipitor QD DVT prophylaxis -lovenox SC VS,Fishbone, I+O VS, Fishbone, I+O Laboratory Tests 05/24/21 13:09 05/25/21 06:01 Vital Signs Date Time Temp Pulse Resp B/P (MAP) Pulse Ox O2 Delivery O2 Flow Rate FiO2 05/25/21 06:00 98.1 87 18 146/88 (107) 98 Room Air I&O- Last 24 Hours up to 6 AM 05/25/21 06:00 Intake Total 750 ml Output Total 275 ml Balance 475 ml CESAR MEJIA MD May 25, 2021 08:49
[2021-05-25 14:00] VITALS: BP 150/86
[2021-05-25 22:00] VITALS: BP 136/94
[2021-05-26 05:54] LABS: HEMATOCRIT 32.8 % (42.0-52.0); HEMOGLOBIN 11.4 g/dl (13.5-17.5); MEAN CORPUSCULAR HEMOGLOBIN 28.3 pg (27.0-33.0); MEAN CORPUSCULAR HGB CONC 34.8 g/dl (32.0-36.5); MEAN CORPUSCULAR VOLUME 81.4 fl (80.0-96.0); PLATELET COUNT, AUTOMATED 190 10^3/uL (150-450); RED BLOOD COUNT 4.03 10^6/uL (4.30-6.10)
[2021-05-26 06:00] VITALS: BP 138/86
[2021-05-26 06:20] LABS: BLOOD UREA NITROGEN 15 MG/DL (7-18); CALCIUM LEVEL 8.2 MG/DL (8.5-10.1); CARBON DIOXIDE LEVEL 28 MEQ/L (21-32); CHLORIDE LEVEL 105 MEQ/L (98-107); CREATININE FOR GFR 0.88 MG/DL (0.70-1.30); GLOMERULAR FILTRATION RATE > 60.0 (>56); GLUCOSE, FASTING 279 MG/DL (70-100); POTASSIUM SERUM 4.2 MEQ/L (3.5-5.1); SODIUM LEVEL 140 MEQ/L (136-145)
[2021-05-26] MEDS: ATORVASTATIN 20 MG TAB PO SCH (08:10)
[2021-05-26] MEDS: ASPIRIN 81 MG CHEW TABLET PO SCH (08:10)
[2021-05-26] MEDS: HumaLOG INSULIN (NovoLOG) PER UNIT SC SCH ×4 (08:11→21:44)
[2021-05-26] MEDS: ENOXAPARIN 40MG/0.4ML SYRINGE (J1650 PER 10MG) SC SCH (08:11)
[2021-05-26] MEDS: METOPROLOL TART 25 MG TABLET PO SCH ×2 (10:43→21:45)
--- NOTE | 2021-05-26 11:57 | ECHO ---
ECHOCARDIOGRAM DATE OF PROCEDURE: 05/24/2021 Age: 56 Gender: Male Height: Weight: 77 kg REFERRING PHYSICIAN: Omaira Lea M.D. INDICATION: Syncope. MEASUREMENTS: 2D Measurements: Intraventricular septum 1.16 cm Posterior wall 1.15 cm Left ventricle diastole 4.4 cm Left ventricle systole 3.0 cm Aortic root 3.7 cm Left atrium 2.6 cm Left atrial volume index 19 Proximal ascending aorta 3.1 cm Doppler Measurements: No aortic stenosis or regurgitation LVOT velocity 86.4 cm/sec No mitral regurgitation or stenosis Mitral E velocity 79.8 cm/sec Mitral A velocity 73.7 cm/sec Mitral deceleration time 183 msec No tricuspid regurgitation No pulmonic regurgitation MITRAL ANNULAR TISSUE DOPPLER: E prime septal 6.5 cm/sec E prime lateral 8.3 cm/sec DESCRIPTION: Rhythm was sinus. Image quality was fair. Infrequent premature ventricular contractions (PVCs). This was a 2D, M-mode, color flow Doppler and pulsed wave Doppler examination and included a mitral annular tissue Doppler. CONCLUSIONS: 1. Mild focal hypertrophy of the basal anteroseptal left ventricular (LV) segment. No dynamic LVOT obstruction. Normal LV wall thickness elsewhere. Normal regional wall motion and wall thickening. Normal LV systolic function. Left ventricular ejection fraction (LVEF) 65% by visual estimate. Normal LV diastolic function. 2. No pericardial effusion. 3. Suggestive of normal central venous pressure. 4. Very mild aortic valve sclerosis of A3-cuspid aortic valve. No aortic regurgitation. 5. Otherwise normal-appearing echocardiogram Doppler findings.
--- NOTE | 2021-05-26 13:00 | IPNPDOC ---
Text Note Date of Service The patient was seen on 05/26/21. NOTE Subjective: -No acute complaints. Was noted to have some unsteadiness on his feet, working with PT. Objective: General: Sitting up in bed, speaking in full sentences, appears comfortable HEENT: NC, AT, PERRLA, edentulous CVS: RRR, +S1S2, no noted murmurs Lungs: CTAB Abdomen: Soft, Non-distended, Non-tender Extremities: No lower extremity edema, No calf tenderness, WWP Neuro: No focal motor or sensory deficit, clear speech, moving all extremities. Skin: No noted rashes Labs: reviewed Assessment: 56-year-old M with past medical history of HTN, CAD, IDDM2, DLP, with a history of previously noted focal hypertrophy of the basal anterior ventricular septum without LV outlet obstruction in 2017, had stopped all his medications 2 years ago and admitted under observation 1 week ago for new-syncope and hypertension that resolved after admission and was restarted on antihypertensives and discharged home with plan for a new PCP and no TTE was done at the time, who now returned with witnessed florseita syncope now admitted for syncope investigation with TTE read pending. Syncope: - Has a history of focal hypertrophy of the basal anterior ventricular septum without LV outlet obstruction in 2017 and non compliance with antihypertensives for 2y with potential worsening of LVH due to hypertensive disease which could have worsened this previously noted hypertrophy and potentiating syncopal episodes. Spoke with Dr. Valentin this morning, will be reading his TTE shortly. -Troponin x1 negative, EKG was consistent with prior with no acute ischemic changes -CXR and CT head were unremarkable -Continue lisinopril at 10mg daily -No noted paroxysmal dysrhythmias on telemetry -Electrolytes wnl -Had no hypoglycemia with initial BG >300 HTN - continue lisinopril 10 QD, resume home metop 25 BID CAD - Patient reported a history of a heart attach in 2010, reports no surgery of PCI -Was recently started on ASA81 and lipitor, will continue -On ACEi and BB NIDDM -hold home metformin -place on SSI AC/HS -FSBG AC/HS -hypoglycemia protocol -consistent carb diet with 2g sodium DLP -continue the recently started lipitor QD DVT prophylaxis -lovenox SC VS,Fishbone, I+O VS, Fishbone, I+O Laboratory Tests 05/26/21 05:20 Vital Signs Date Time Temp Pulse Resp B/P (MAP) Pulse Ox O2 Delivery O2 Flow Rate FiO2 05/26/21 08:13 120/80 05/26/21 06:00 97.7 103 18 98 Room Air I&O- Last 24 Hours up to 6 AM 05/26/21 06:00 Intake Total 1900 ml Output Total 1950 ml Balance -50 ml CESAR MEJIA MD May 26, 2021 09:34
[2021-05-26 14:00] VITALS: BP 132/93
[2021-05-26 20:00] VITALS: BP 136/93
[2021-05-27 06:00] VITALS: BP 154/82
[2021-05-27 06:14] LABS: HEMATOCRIT 32.8 % (42.0-52.0); HEMOGLOBIN 11.5 g/dl (13.5-17.5); MEAN CORPUSCULAR HEMOGLOBIN 28.3 pg (27.0-33.0); MEAN CORPUSCULAR HGB CONC 35.1 g/dl (32.0-36.5); MEAN CORPUSCULAR VOLUME 80.6 fl (80.0-96.0); PLATELET COUNT, AUTOMATED 203 10^3/uL (150-450); RED BLOOD COUNT 4.07 10^6/uL (4.30-6.10); WHITE BLOOD COUNT 8.4 10^3/uL (4.0-10.0)
[2021-05-27 06:45] LABS: BLOOD UREA NITROGEN 15 MG/DL (7-18); CALCIUM LEVEL 8.4 MG/DL (8.5-10.1); CARBON DIOXIDE LEVEL 25 MEQ/L (21-32); CHLORIDE LEVEL 105 MEQ/L (98-107); CREATININE FOR GFR 0.87 MG/DL (0.70-1.30); GLOMERULAR FILTRATION RATE > 60.0 (>56); GLUCOSE, FASTING 244 MG/DL (70-100); POTASSIUM SERUM 3.9 MEQ/L (3.5-5.1); SODIUM LEVEL 138 MEQ/L (136-145)
[2021-05-27] MEDS ORDERED: LISI20TA33 PO (08:26)
[2021-05-27] MEDS: ATORVASTATIN 20 MG TAB PO SCH (09:26)
[2021-05-27] MEDS: ENOXAPARIN 40MG/0.4ML SYRINGE (J1650 PER 10MG) SC SCH (09:26)
[2021-05-27] MEDS: ASPIRIN 81 MG CHEW TABLET PO SCH (09:26)
[2021-05-27] MEDS: HumaLOG INSULIN (NovoLOG) PER UNIT SC SCH ×4 (09:27→21:51)
[2021-05-27] MEDS: METOPROLOL TART 25 MG TABLET PO SCH ×2 (09:28→21:51)
--- NOTE | 2021-05-27 11:05 | IPNPDOC ---
Text Note Date of Service The patient was seen on 05/27/21. NOTE Subjective: -No acute complaints. Was noted to have some unsteadiness on his feet, working with PT that is recommending STR with unsteady gait, has 6 stairs and unlikely to gain safely adequate strength in the next few days. Objective: General: Sitting up in bed, speaking in full sentences, appears comfortable HEENT: NC, AT, PERRLA, edentulous CVS: RRR, +S1S2, no noted murmurs Lungs: CTAB Abdomen: Soft, Non-distended, Non-tender Extremities: No lower extremity edema, No calf tenderness, WWP Neuro: No focal motor or sensory deficit, clear speech, moving all extremities. Skin: No noted rashes Labs: reviewed TTE: 1. Mild focal hypertrophy of the basal anteroseptal left ventricular (LV) segment. No dynamic LVOT obstruction. Normal LV wall thickness elsewhere. Normal regional wall motion and wall thickening. Normal LV systolic function. Left ventricular ejection fraction (LVEF) 65% by visual estimate. Normal LV diastolic function. 2. No pericardial effusion. 3. Suggestive of normal central venous pressure. 4. Very mild aortic valve sclerosis of A3-cuspid aortic valve. No aortic regurgitation. 5. Otherwise normal-appearing echocardiogram Doppler findings. Assessment: 56-year-old M with past medical history of HTN, CAD, IDDM2, DLP, with a history of previously noted focal hypertrophy of the basal anterior ventricular septum without LV outlet obstruction in 2016, had stopped all his medications 2 years ago and admitted under observation 1 week ago for new-syncope and hypertension that resolved after admission and was restarted on antihypertensives and discharged home with plan for a new PCP and no TTE was done at the time, who now returned with witnessed floresita syncope now admitted for syncope investigation with TTE read pending. Syncope: - Has a history of focal hypertrophy of the basal anterior ventricular septum without LV outlet obstruction in 2017 and non compliance with antihypertensives for 2y, thankfully TTE showed stable focal hypertrophy with no evidence of LVOT. -Troponin x1 negative, EKG was consistent with prior with no acute ischemic changes -CXR and CT head were unremarkable -Continue lisinopril at 10mg daily -No noted paroxysmal dysrhythmias on telemetry -Electrolytes wnl -Had no hypoglycemia with initial BG >300 HTN - continue lisinopril 10 QD, resume home metop 25 BID CAD - Patient reported a history of a heart attach in 2010, reports no surgery of PCI -Was recently started on ASA81 and lipitor, will continue -On ACEi and BB NIDDM -hold home metformin -place on SSI AC/HS -FSBG AC/HS -hypoglycemia protocol -consistent carb diet with 2g sodium DLP -continue the recently started lipitor QD DVT prophylaxis -lovenox SC Dispo: Due to unsteady gait and deconditioning as determined by PT and recommendation for STR will now transition to ALC, otherwise medically stable. VS,Fishbone, I+O VS, Fishbone, I+O Laboratory Tests 05/27/21 05:49 Vital Signs Date Time Temp Pulse Resp B/P (MAP) Pulse Ox O2 Delivery O2 Flow Rate FiO2 05/27/21 09:28 92 124/73 05/27/21 06:00 98.3 18 97 Room Air I&O- Last 24 Hours up to 6 AM 05/27/21 06:00 Intake Total 1318 ml Output Total 850 ml Balance 468 ml CESAR MEJIA MD May 27, 2021 11:05
[2021-05-27 22:00] VITALS: BP 124/68
[2021-05-28 06:00] VITALS: BP 135/83
[2021-05-28 06:02] LABS: HEMATOCRIT 32.9 % (42.0-52.0); HEMOGLOBIN 11.5 g/dl (13.5-17.5); MEAN CORPUSCULAR HEMOGLOBIN 28.3 pg (27.0-33.0); PLATELET COUNT, AUTOMATED 204 10^3/uL (150-450); RED BLOOD COUNT 4.06 10^6/uL (4.30-6.10); WHITE BLOOD COUNT 9.1 10^3/uL (4.0-10.0)
[2021-05-28 06:27] LABS: BLOOD UREA NITROGEN 19 MG/DL (7-18); CALCIUM LEVEL 8.4 MG/DL (8.5-10.1); CARBON DIOXIDE LEVEL 30 MEQ/L (21-32); CHLORIDE LEVEL 103 MEQ/L (98-107); CREATININE FOR GFR 0.97 MG/DL (0.70-1.30); GLOMERULAR FILTRATION RATE > 60.0 (>56); GLUCOSE, FASTING 290 MG/DL (70-100); POTASSIUM SERUM 3.9 MEQ/L (3.5-5.1); SODIUM LEVEL 137 MEQ/L (136-145)
[2021-05-28] MEDS: HumaLOG INSULIN (NovoLOG) PER UNIT SC SCH ×4 (08:09→20:55)
[2021-05-28] MEDS: ASPIRIN 81 MG CHEW TABLET PO SCH (08:09)
[2021-05-28] MEDS: ATORVASTATIN 20 MG TAB PO SCH (08:09)
[2021-05-28] MEDS: ENOXAPARIN 40MG/0.4ML SYRINGE (J1650 PER 10MG) SC SCH (08:11)
[2021-05-28] MEDS: METOPROLOL TART 25 MG TABLET PO SCH ×2 (08:11→20:50)
[2021-05-28 22:00] VITALS: BP 149/98
[2021-05-29 08:20] VITALS: BP 138/87
[2021-05-29] MEDS: ATORVASTATIN 20 MG TAB PO SCH (08:27)
[2021-05-29] MEDS: ASPIRIN 81 MG CHEW TABLET PO SCH (08:27)
[2021-05-29] MEDS: METOPROLOL TART 25 MG TABLET PO SCH ×2 (08:28→20:42)
[2021-05-29] MEDS: ENOXAPARIN 40MG/0.4ML SYRINGE (J1650 PER 10MG) SC SCH (08:29)
[2021-05-29] MEDS: HumaLOG INSULIN (NovoLOG) PER UNIT SC SCH ×4 (08:29→20:43)
[2021-05-29 22:00] VITALS: BP 141/92
[2021-05-30 06:28] VITALS: BP 138/89
[2021-05-30] MEDS: HumaLOG INSULIN (NovoLOG) PER UNIT SC SCH ×4 (07:11→21:04)
[2021-05-30] MEDS: ATORVASTATIN 20 MG TAB PO SCH (08:46)
[2021-05-30] MEDS: ENOXAPARIN 40MG/0.4ML SYRINGE (J1650 PER 10MG) SC SCH (08:46)
[2021-05-30] MEDS: ASPIRIN 81 MG CHEW TABLET PO SCH (08:46)
[2021-05-30] MEDS: METOPROLOL TART 25 MG TABLET PO SCH ×2 (08:47→21:05)
[2021-05-30 22:00] VITALS: BP 162/100
[2021-05-30] MEDS ORDERED: CALCIUM CARBONATE 500 MG CHEW U/D PO PRN (23:50)
[2021-05-31] MEDS: HumaLOG INSULIN (NovoLOG) PER UNIT SC SCH ×4 (07:58→21:12)
[2021-05-31] MEDS: ASPIRIN 81 MG CHEW TABLET PO SCH (07:59)
[2021-05-31] MEDS: ENOXAPARIN 40MG/0.4ML SYRINGE (J1650 PER 10MG) SC SCH (07:59)
[2021-05-31] MEDS: ATORVASTATIN 20 MG TAB PO SCH (07:59)
[2021-05-31] MEDS: METOPROLOL TART 25 MG TABLET PO SCH ×2 (08:01→21:11)
[2021-05-31 11:37] VITALS: BP 145/98
[2021-05-31 11:38] VITALS: BP 138/90
[2021-05-31 11:39] VITALS: BP 134/86
[2021-06-01 06:00] VITALS: BP 129/84
[2021-06-01] MEDS: ASPIRIN 81 MG CHEW TABLET PO SCH (08:17)
[2021-06-01] MEDS: ATORVASTATIN 20 MG TAB PO SCH (08:18)
[2021-06-01 08:19] VITALS: BP 134/87
[2021-06-01] MEDS: METOPROLOL TART 25 MG TABLET PO SCH (08:19)
[2021-06-01] MEDS: ENOXAPARIN 40MG/0.4ML SYRINGE (J1650 PER 10MG) SC SCH (08:19)
[2021-06-01] MEDS: HumaLOG INSULIN (NovoLOG) PER UNIT SC SCH ×3 (08:20→17:20)
--- NOTE | 2021-06-01 11:28 | DS.PDOC ---
Discharge Summary General Date of Admission May 26, 2021 at 09:30 Date of Discharge 06/01/21 Discharge Summary PROCEDURES DURING STAY: NONE DISCHARGE DIAGNOSES: Syncope NOS, likely secondary to dehydration vs. vasovagal HTN CAD IDDM2 DLP COMPLICATIONS/CHIEF COMPLAINT: Syncope. HISTORY OF PRESENT ILLNESS: 56-year-old M with past medical history of HTN, CAD, IDDM2, DLP, with a history of previously noted focal hypertrophy of the basal anterior ventricular septum without LV outlet obstruction in 2017, had stopped all his medications 2 years a go and admitted under observation 1 week ago for new-syncope and hypertension that resolved after admission and was restarted on antihypertensives and discharged home with plan for a new PCP that is now finally confirmed and, who now returned with witnessed floresita syncope and collapse and transient unresponsiveness. He was shopping at the [employer] when he suddenly felt lightheaded and like he was about to faint and so he called his friend to come and take him to the ED and on the way in the car actually syncopized. HOSPITAL COURSE: On arrival to the ED, he was unresponsive and regained consciousness after being brought in to the ED and on evaluation denied any chest pain, palpitations, dyspnea, recent fever, chills, emesis, headaches, traumatic injury. He reportedly was back to baseline. Vitals were wnl, EKG non ischemic with NSR and LVH, troponin negative, CBC and BMP unremarkable except for noted hyperglycemia to 316. He had a head CT that was wnl without acute pathology and no evidence of hemorrhage, infarction, skill fractures or mass and a CXR was unremarkable with no acute pathology. He was admitted for syncope. His telemetry remained sinus without noted dysrhythmias or heart block, while TTE revealed stable focal hypertrophy of the basal anterior ventricular septum without LV outlet obstruction with a normal EF and significant valvular abnormalities. He was evaluated by physical therapy and was noted to have a significant gait instability. PT recommended short-term rehab due to decreased activity tolerance and fall risk. Pt adamantly states he will not go to rehab due to financial concerns. Patient awake alert and oriented x3 at this time. I explained the risks of going home versus the benefits of going to subacute rehab however patient remained adamant in his decision about going home. So I am going to discharge him home today DISCHARGE MEDICATIONS: Please see below. ALLERGIES: Please see below. PHYSICAL EXAMINATION ON DISCHARGE: VITAL SIGNS: Please see below. General: Sitting up in bed, speaking in full sentences, appears comfortable HEENT: NC, AT, PERRLA, edentulous CVS: RRR, +S1S2, no noted murmurs Lungs: CTAB Abdomen: Soft, Non-distended, Non-tender Extremities: No lower extremity edema, No calf tenderness, WWP Neuro: No focal motor or sensory deficit, clear speech, moving all extremities. Skin: No noted rashes LABORATORY DATA: Please see below. IMAGING: TTE: 1. Mild focal hypertrophy of the basal anteroseptal left ventricular (LV) segment. No dynamic LVOT obstruction. Normal LV wall thickness elsewhere. Normal regional wall motion and wall thickening. Normal LV systolic function. Left ventricular ejection fraction (LVEF) 65% by visual estimate. Normal LV diastolic function. 2. No pericardial effusion. 3. Suggestive of normal central venous pressure. 4. Very mild aortic valve sclerosis of A3-cuspid aortic valve. No aortic regurgitation. 5. Otherwise normal-appearing echocardiogram Doppler findings. CT head: 1. Negative noncontrast head CT for intracranial bleed, acute infarct, mass, mass effect or edema. 2. No fracture of the skull base or calvarium. There is a mucous retention cyst in the floor of the right maxillary sinus with the other sinuses clear. 3. Multiple of subcutaneous findings in the scalp as before likely skin appendages such is sebaceous cyst but old trauma could also give this effect. CXR: No acute cardiopulmonary abnormalities PROGNOSIS: Good ACTIVITY: As tolerated DIET: consistent carb diet DISCHARGE PLAN: Home with close PCP follow up. Reduced lisinopril to 10mg daily and continued metop 25 BID. DISPOSITION: Home DISCHARGE INSTRUCTIONS: Home with close PCP follow up. Reduced lisinopril to 10mg daily and continued metop 25 BID. DISCHARGE CONDITION: Stable TIME SPENT ON DISCHARGE: 35 minutes. Vital Signs/I&Os Vital Signs Date Time Temp Pulse Resp B/P (MAP) Pulse Ox O2 Delivery O2 Flow Rate FiO2 06/01/21 08:19 85 134/87 06/01/21 06:00 98.5 16 99 Room Air I&O- Last 24 Hours up to 6 AM 06/01/21 06:00 Intake Total 1440 ml Output Total 1050 ml Balance 390 ml Laboratory Data Labs 24H Laboratory Tests 2 05/31/21 11:43: Bedside Glucose (Misc Panel) 370H 05/31/21 17:07: Bedside Glucose (Misc Panel) 341H 05/31/21 20:40: Bedside Glucose (Misc Panel) 320H 06/01/21 06:49: Bedside Glucose (Misc Panel) 298H FSBS Laboratory Tests Test 05/31/21 11:43 05/31/21 17:07 05/31/21 20:40 06/01/21 06:49 Range/Units Bedside Glucose (Misc Panel) 370 341 320 298 70-105 MG/DL Discharge Medications Scheduled Aspirin (Aspirin EC) 81 Mg Tablet.dr, 81 MG PO DAILY, (Reported) Atorvastatin Calcium (Atorvastatin Calcium) 40 Mg Tablet, 40 MG PO DAILY, (Reported) Lisinopril (Lisinopril) 20 Mg Tablet, 10 MG PO DAILY Metformin HCl (Metformin HCl) 1,000 Mg Tablet, 1,000 MG PO BID, (Reported) Metoprolol Tartrate (Metoprolol Tartrate) 25 Mg Tablet, 25 MG PO BID, (Reported) Allergies Coded Allergies: Olives (Verified Allergy, Severe, THROAT CLOSES/SWELLING , 05/18/21) Peanut (Verified Allergy, Severe, PEANUT OIL/BUTTER=THROAT CLOSES/DYSPNEA, 05/18/21) Grass (Verified Allergy, Mild, 05/18/21) SEASONAL ALLERGIES (Verified Allergy, Mild, 05/18/21) ANJEL DENNY MD Jun 01, 2021 11:27
== END 2021-06-01 18:00 | disposition home health service (06) | DRG 204 ==
LOC: M ED 12:57 → M ED INP 12:58 → ENRESERV 23:25 → M MSPAV 05-25 00:20 → OBSVTOIN 05-26 09:30
PROVIDERS: ADMIT Internal Medicine; ATTEND Internal Medicine Nephrology
DX: R55 Syncope and collapse (principal); E11.65 Type 2 diabetes mellitus with hyperglycemia; I10 Essential (primary) hypertension; I25.10 Atherosclerotic heart disease of native coronary artery without angina pectoris; E78.5 Hyperlipidemia, unspecified; I51.7 Cardiomegaly; J30.1 Allergic rhinitis due to pollen; I25.2 Old myocardial infarction; Z20.822 Contact with and (suspected) exposure to COVID-19; Z79.82 Long term (current) use of aspirin; Z79.84 Long term (current) use of oral hypoglycemic drugs; Z79.899 Other long term (current) drug therapy

== ENCOUNTER 2021-06-04 07:36 | Inpatient (IN) | payer OTHER ==
[~2021-06-04 07:36] MED LIST changes: +ASPI81TA26 PO; -LISI-898 PO; -LISI2.5T2; +LISI2.5T9; +LISI5TAB11 PO; +METF-877 PO
[2021-06-04] MEDS ORDERED: NS 1,000 ML IV SCH (07:50)
[2021-06-04 08:00] LABS: VENOUS BASE EXCESS -3.3 (-2.0-2.0); VENOUS HCO3 21.7 MEQ/L (23.0-27.0); VENOUS O2 SATURATION 98.9 % (60.0-80.0); VENOUS PARTIAL PRESSURE CO2 38.7 mmHg (38.0-50.0); VENOUS PARTIAL PRESSURE O2 192.9 mmHg (30.0-50.0); VENOUS PH 7.366 UNITS (7.330-7.430); VENOUS STANDARD HCO3 21.8 MEQ/L; VENOUS TOTAL CO2 22.9 MEQ/L (24.0-28.0)
[2021-06-04 08:04] LABS: BASO # 0.1 10^3/uL (0.0-0.2); BASO % 0.7 % (0.0-1.0); EOS # 0.4 10^3/uL (0.0-0.5); EOS % 4.1 % (0.0-3.0); HEMATOCRIT 34.7 % (42.0-52.0); HEMOGLOBIN 11.9 g/dl (13.5-17.5); LYMPH # 2.8 10^3/uL (1.5-5.0); MEAN CORPUSCULAR HEMOGLOBIN 28.4 pg (27.0-33.0); MEAN CORPUSCULAR HGB CONC 34.3 g/dl (32.0-36.5); MEAN CORPUSCULAR VOLUME 82.8 fl (80.0-96.0); MONO # 0.8 10^3/uL (0.0-0.8); MONO % 8.3 % (2.0-8.0); NEUTROPHILS # 5.2 10^3/uL (1.5-8.5); NEUTROPHILS % 56.6 % (36.0-66.0); PLATELET COUNT, AUTOMATED 229 10^3/uL (150-450); RED BLOOD COUNT 4.19 10^6/uL (4.30-6.10); WHITE BLOOD COUNT 9.2 10^3/uL (4.0-10.0)
[2021-06-04 08:48] LABS: ALBUMIN 3.2 GM/DL (3.2-5.2); ALT/SGPT 20 U/L (12-78); BILIRUBIN,DIRECT < 0.1 MG/DL (0.0-0.2); BILIRUBIN,TOTAL 0.1 MG/DL (0.2-1.0); CK-MB VALUE MASS 3.2 NG/ML (<3.6); CPK CREATINE PHOSPHOKINASE 175 U/L (39-308); ETHYL ALCOHOL (ETHANOL) < 0.003 % (0.000-0.010); MB/CK RELATIVE INDEX 1.83 (< OR =4); TROPONIN I < 0.02 NG/ML (< 0.10)
[2021-06-04] MEDS ORDERED: ISOVUE-370 76% 100ML VIAL As Ordered ONE (08:53)
[2021-06-04 09:45] LABS: OSMOLALITY SERUM 306 MOSM/KG (275-295)
[2021-06-04] MEDS ORDERED: LISI20TA33 PO (09:58)
[2021-06-04 10:10] LABS: RSV AMPLIFICATION NEGATIVE (NEGATIVE)
[2021-06-04] MEDS ORDERED: ACETAMINOPHEN TAB 650MG DOSE (2X325MG) PO PRN (10:35)
[2021-06-04] MEDS ORDERED: GLUCAGON INJ 1MG VIAL SC PRN (10:40)
[2021-06-04] MEDS ORDERED: GLUCOSE 4GM CHEW TABLET PO PRN (10:40)
[2021-06-04] MEDS ORDERED: DEXTROSE 50% 50 ML SYRINGE IV PRN (10:40)
[2021-06-04] MEDS ORDERED: HOME MED LIST COMPLETE! XX SCH (11:05)
[2021-06-04 12:19] LABS: AMPHETAMINES LEVEL URINE NEGATIVE (NEGATIVE); BARBITURATES URINE NEGATIVE (NEGATIVE); BENZODIAZEPINES URINE NEGATIVE (NEGATIVE); CANNABINOIDS URINE NEGATIVE (NEGATIVE); COCAINE METABOLITE URINE NEGATIVE (NEGATIVE); METHADONE URINE NEGATIVE (NEGATIVE); OPIATES URINE NEGATIVE (NEGATIVE); PHENCYCLIDINE URINE NEGATIVE (NEGATIVE)
[2021-06-04] MEDS: DOCUSATE SODIUM 100MG CAPSULE PO SCH ×2 (17:57→20:14)
[2021-06-04] MEDS: METOPROLOL TART 25 MG TABLET PO SCH ×2 (17:58→20:29)
[2021-06-04 18:00] VITALS: BP 148/102
[2021-06-04] MEDS: HumaLOG INSULIN (NovoLOG) PER UNIT SC SCH ×2 (18:05→18:30)
[2021-06-04] MEDS: ASPIRIN 81MG ENTERIC TABLET PO SCH (18:10)
[2021-06-04] MEDS: ATORVASTATIN 20 MG TAB PO SCH (18:10)
[2021-06-04] MEDS ORDERED: HumaLOG INSULIN (NovoLOG) PER UNIT SC SCH (21:00)
[2021-06-04 22:00] VITALS: BP 170/90
[2021-06-05 06:00] VITALS: BP 140/89
[2021-06-05 06:19] LABS: HEMATOCRIT 31.9 % (42.0-52.0); HEMOGLOBIN 11.1 g/dl (13.5-17.5); MEAN CORPUSCULAR HEMOGLOBIN 28.4 pg (27.0-33.0); MEAN CORPUSCULAR HGB CONC 34.8 g/dl (32.0-36.5); MEAN CORPUSCULAR VOLUME 81.6 fl (80.0-96.0); PLATELET COUNT, AUTOMATED 217 10^3/uL (150-450); RED BLOOD COUNT 3.91 10^6/uL (4.30-6.10); WHITE BLOOD COUNT 7.5 10^3/uL (4.0-10.0)
[2021-06-05 06:47] LABS: BLOOD UREA NITROGEN 19 MG/DL (7-18); CARBON DIOXIDE LEVEL 26 MEQ/L (21-32); CHLORIDE LEVEL 108 MEQ/L (98-107); CREATININE FOR GFR 0.98 MG/DL (0.70-1.30); GLOMERULAR FILTRATION RATE > 60.0 (>56); GLUCOSE, FASTING 274 MG/DL (70-100); SODIUM LEVEL 140 MEQ/L (136-145)
[2021-06-05] MEDS: ATORVASTATIN 20 MG TAB PO SCH (08:20)
[2021-06-05 08:21] VITALS: BP 140/89
[2021-06-05] MEDS: HumaLOG INSULIN (NovoLOG) PER UNIT SC SCH ×3 (08:21→16:25)
[2021-06-05] MEDS: ASPIRIN 81MG ENTERIC TABLET PO SCH (08:21)
[2021-06-05] MEDS: METOPROLOL TART 25 MG TABLET PO SCH (08:21)
[2021-06-05] MEDS: DOCUSATE SODIUM 100MG CAPSULE PO SCH (08:22)
[2021-06-05 14:00] VITALS: BP 104/70
== END 2021-06-05 18:30 | disposition home health service (06) | DRG 204 ==
LOC: EDBD 07:36 → M ED 07:36 → M ED INP 10:35 → ENRESERV 16:50 → M MSPAV 17:49
PROVIDERS: ADMIT Neuromusculoskeletal Medicine & OMM; ATTEND Neuromusculoskeletal Medicine & OMM
DX: R55 Syncope and collapse (principal); I25.10 Atherosclerotic heart disease of native coronary artery without angina pectoris; E11.9 Type 2 diabetes mellitus without complications; E78.5 Hyperlipidemia, unspecified; J30.1 Allergic rhinitis due to pollen; I10 Essential (primary) hypertension; Z90.49 Acquired absence of other specified parts of digestive tract; Z20.822 Contact with and (suspected) exposure to COVID-19; Z79.82 Long term (current) use of aspirin; Z79.84 Long term (current) use of oral hypoglycemic drugs; Z91.010 Allergy to peanuts; Z91.018 Allergy to other foods

== ENCOUNTER → 2021-06-15 | Outpatient (REF) | payer OTHER ==
[~2021-06-15] MED LIST changes: +LISI-898 PO; -LISI5TAB11 PO
[2021-06-15 17:29] LABS: BASO # 0.1 10^3/uL (0.0-0.2); BASO % 0.9 % (0.0-1.0); EOS # 0.5 10^3/uL (0.0-0.5); EOS % 5.8 % (0.0-3.0); HEMATOCRIT 33.7 % (42.0-52.0); HEMOGLOBIN 11.7 g/dl (13.5-17.5); LYMPH # 3.3 10^3/uL (1.5-5.0); MEAN CORPUSCULAR HEMOGLOBIN 28.5 pg (27.0-33.0); MEAN CORPUSCULAR HGB CONC 34.7 g/dl (32.0-36.5); MEAN CORPUSCULAR VOLUME 82.2 fl (80.0-96.0); MONO # 0.6 10^3/uL (0.0-0.8); NEUTROPHILS # 4.1 10^3/uL (1.5-8.5); NEUTROPHILS % 48.1 % (36.0-66.0); PLATELET COUNT, AUTOMATED 203 10^3/uL (150-450); WHITE BLOOD COUNT 8.6 10^3/uL (4.0-10.0)
[2021-06-15 17:33] LABS: HEMOGLOBIN A1c 11.6 %
[2021-06-15 17:50] LABS: ALBUMIN 3.4 GM/DL (3.2-5.2); ALT/SGPT 21 U/L (12-78); BILIRUBIN,TOTAL 0.3 MG/DL (0.2-1.0); BLOOD UREA NITROGEN 25 MG/DL (7-18); CALCIUM LEVEL 9.3 MG/DL (8.5-10.1); CARBON DIOXIDE LEVEL 27 MEQ/L (21-32); CHLORIDE LEVEL 105 MEQ/L (98-107); CHOLESTEROL LEVEL 60 MG/DL (<200); CHOLESTEROL RISK RATIO 1.764 (<5); CREATININE FOR GFR 1.02 MG/DL (0.70-1.30); FREE T4 1.27 NG/DL (0.76-1.46); GLOMERULAR FILTRATION RATE > 60.0 (>56); GLUCOSE, FASTING 233 MG/DL (70-100); HDL CHOLESTEROL 34 MG/DL (>40); LDL CHOLESTEROL 4 MG/DL (<100); NON-HDL-C 26 MG/DL; POTASSIUM SERUM 4.6 MEQ/L (3.5-5.1); SODIUM LEVEL 139 MEQ/L (136-145); THYROID STIMULATING HORMONE 0.554 uIU/ML (0.358-3.740); TOTAL PROTEIN 6.8 GM/DL (6.4-8.2); TRIGLYCERIDES LEVEL 112 MG/DL (<150)
[2021-06-15 17:55] LABS: TOTAL 25(OH) VITAMIN D 26.6 NG/ML (30.0-100.0)
[2021-06-15 18:32] LABS: HEPATITIS C VIRUS ABY INDEX 0.1 INDEX (<0.8)
[2021-06-15 18:35] LABS: HIV 1&2 SCREEN CENTAUR NEGATIVE (NEGATIVE)
== END ==
LOC: M LAB REF 16:41
PROVIDERS: ATTEND Nurse Practitioner Family
DX: Z13.228 Encounter for screening for other metabolic disorders (principal); Z00.00 Encounter for general adult medical examination without abnormal findings

== ENCOUNTER 2021-08-04 01:13 | Inpatient (IN) | payer OTHER ==
[~2021-08-04] VITALS: Ht 170.2 cm; Wt 64.9 kg
[2021-08-04] MEDS ORDERED: NS 1,000 ML IV ONE (04:20)
[2021-08-04] MEDS ORDERED: dexameTHASONE 4 MG/ML 1ML VIAL (J1100 PER 1MG) IV ONE (04:20)
[2021-08-04 04:55] LABS: BASO % 0.3 % (0.0-1.0); HEMATOCRIT 30.8 % (42.0-52.0); HEMOGLOBIN 10.9 g/dl (13.5-17.5); LYMPH # 2.1 10^3/uL (1.5-5.0); MEAN CORPUSCULAR HEMOGLOBIN 28.3 pg (27.0-33.0); MEAN CORPUSCULAR HGB CONC 35.4 g/dl (32.0-36.5); MONO # 0.8 10^3/uL (0.0-0.8); MONO % 8.3 % (2.0-8.0); NEUTROPHILS # 6.9 10^3/uL (1.5-8.5); NEUTROPHILS % 70.1 % (36.0-66.0); PLATELET COUNT, AUTOMATED 163 10^3/uL (150-450); RED BLOOD COUNT 3.85 10^6/uL (4.30-6.10); WHITE BLOOD COUNT 9.8 10^3/uL (4.0-10.0)
[2021-08-04 05:06] LABS: INR 1.1; PARTIAL THROMBOPLASTIN TIME 30.1 SECONDS (25.9-37.0); PROTHROMBIN TIME 14.6 SECONDS (12.7-14.5)
[2021-08-04 05:09] LABS: D-DIMER QUANT 564.55 ng/ml (<500)
[2021-08-04 05:27] LABS: ALBUMIN 2.9 GM/DL (3.2-5.2); ALT/SGPT 22 U/L (12-78); BILIRUBIN,TOTAL 0.4 MG/DL (0.2-1.0); BLOOD UREA NITROGEN 32 MG/DL (7-18); C REACTIVE PROTEIN QUANTITATIV 1.26 MG/DL (0.00-0.30); CALCIUM LEVEL 8.5 MG/DL (8.5-10.1); CARBON DIOXIDE LEVEL 24 MEQ/L (21-32); CHLORIDE LEVEL 101 MEQ/L (98-107); CK-MB VALUE MASS 1.5 NG/ML (<3.6); CPK CREATINE PHOSPHOKINASE 88 U/L (39-308); FERRITIN 225 NG/ML (26-388); GLOMERULAR FILTRATION RATE 44.8 (>56); GLUCOSE, FASTING 224 MG/DL (70-100); LDH LACTATE DEHYDROGENASE 206 U/L (87-241); MAGNESIUM LEVEL 1.5 MG/DL (1.8-2.4); POTASSIUM SERUM 4.9 MEQ/L (3.5-5.1); SODIUM LEVEL 134 MEQ/L (136-145); TOTAL PROTEIN 7.3 GM/DL (6.4-8.2); TROPONIN I < 0.02 NG/ML (< 0.10)
--- NOTE | 2021-08-04 06:16 | REPVR ---
PROCEDURE INFORMATION: Exam: XR Chest Exam date and time: 08/04/21 (4:46am) Age: 56 years old Clinical indication: Covid infection TECHNIQUE: Imaging protocol: Portable CXR Views: 1 view COMPARISON: Portable CXR's of 06/04/21 and 05/18/21 FINDINGS: Lungs: No consolidation. Perhaps faint hazy markings at the left lung base. Pleural spaces: Unremarkable. No pleural effusion. No pneumothorax. Heart/Mediastinum: Unremarkable. No cardiomegaly. Bones/joints: Unremarkable. Other findings: S/P cholecystectomy. IMPRESSION: Perhaps faint, mild LLL pneumonitis (this area was clear on 05/18/21). No consolidation. No pleural effusions. Follow-up imaging is suggested, as symptoms warrant. Electronically signed by: Naya Duncan On 08/04/2021 06:16:24 AM
[2021-08-04] MEDS ORDERED: HOME MED LIST COMPLETE! XX SCH (09:25)
[2021-08-04 10:53] VITALS: BP 142/84
[2021-08-04] MEDS: NS 1,000 ML IV SCH ×3 (12:08→22:09)
[2021-08-04 14:00] VITALS: BP 135/88
--- NOTE | 2021-08-04 14:30 | HPEPDOC ---
[facility] Medical History & Physical Date of Admission Aug 04, 2021 Date of Service: Aug 04, 2021 History and Physical CHIEF COMPLAINT: diarrhea HISTORY OF PRESENT ILLNESS: 56 yo male for one day history of diarrhea, myalgia, cough and weakness. Patient's son was diagnosed one day ago with COVID-19. Patient has not been vaccinated. In ED he was found to be COVID+ and hypotensive. He describes his diarrhea as non-bloody. He notes mild dyspnea on exertion. He denies chest pain, abdominal pain, N/V, headaches, changes in vision or depressed mood. PAST MEDICAL HISTORY: #HTN SOCIAL HISTORY: Never smoker, denies alcohol or illicit drug use. FAMILY HISTORY: Father: from MVA Mother: denies any medical history ALLERGIES: Please see below. REVIEW OF SYSTEMS: Negative except as per HPI. HOME MEDICATIONS: Please see below. PHYSICAL EXAMINATION: Vital Signs: reviewed General: NAD, lying comfortably in bed HEENT: NC/AT, EOMI Neck: supple, no masses Chest: lungs CTA B/L Heart: +S1S2, RRR Abd: soft, NT, ND, +BS Ext: no edema Skin: no rashes MSK: full ROM at large joints Neuro: no gross focal deficits Psych: AAOx3 LABORATORY DATA: See below. MICROBIOLOGY: Please see below. A/P: 56 yo male presents for general myalgia, non-bloody diarrhea, weakness with sick contacts for COVID. In ED found to be +COVID, hypotensive. #diarrhea - GI panel +EPEC - supportive care #COVID - not hypoxic, minimal dyspnea on exertion - supportive care #hypotensive - likely hypovolemic - IV fluids for now #HTN - home meds with hold parameters #DVT prophylaxis - mechanical for now Disposition: continue IV fluids, anticipate discharge in 24-48 hours Vital Signs Vital Signs Date Time Temp Pulse Resp B/P (MAP) Pulse Ox O2 Delivery O2 Flow Rate FiO2 08/04/21 10:53 98.1 68 16 142/84 (103) 99 Room Air Laboratory Data Labs 24H Laboratory Tests 2 08/04/21 04:32: Immature Granulocyte % (Auto) 0.3, Neutrophils (%) (Auto) 70.1H, Lymphocytes (%) (Auto) 21.0L, Monocytes (%) (Auto) 8.3H, Eosinophils (%) (Auto) 0.0, Basophils (%) (Auto) 0.3, Neutrophils # (Auto) 6.9, Lymphocytes # (Auto) 2.1, Monocytes # (Auto) 0.8, Eosinophils # (Auto) 0.0, Basophils # (Auto) 0.0, Nucleated Red Blood Cells % (auto) 0.0, Prothrombin Time 14.6H, Prothromb Time International Ratio 1.10, Activated Partial Thromboplast Time 30.1, Fibrinogen 449, D-Dimer, Quantitative 564.55H, Anion Gap 9, Glomerular Filtration Rate 44.8L, Lactic Acid Level 2.2*H, Calcium Level 8.5, Magnesium Level 1.5L, Ferritin 225, Total Bilirubin 0.4, Aspartate Amino Transf (AST/SGOT) 21, Alanine Aminotransferase (ALT/SGPT) 22, Alkaline Phosphatase 38L, Lactate Dehydrogenase 206, Total Creatine Kinase 88, Creatine Kinase MB 1.5, Creatine Kinase MB Relative Index 1.70, Troponin I < 0.02, C-Reactive Protein, Quantitative 1.26H, Total Protein 7.3, Albumin 2.9L, Albumin/Globulin Ratio 0.7, Procalcitonin 0.05 08/04/21 09:32: Lactic Acid Followup at 4 Hours 1.6 CBC/BMP Laboratory Tests 08/04/21 04:32 Microbiology Microbiology 08/04/21 Gastrointestinal Tract Panel (PCR) - Final, Complete Enteropathogenic E.coli 08/04/21 Blood Culture, Received Pending 08/04/21 Blood Culture, Received Pending 08/04/21 Respiratory Virus Panel (PCR) (JOHANNA) - Final, Complete SARS-CoV-2 (COVID 19) Home Medications Scheduled Aspirin (Aspirin EC) 81 Mg Tablet.dr, 81 MG PO DAILY Atorvastatin Calcium (Atorvastatin Calcium) 40 Mg Tablet, 40 MG PO DAILY Lisinopril (Lisinopril) 20 Mg Tablet, 10 MG PO DAILY Metformin HCl (Metformin HCl) 1,000 Mg Tablet, 1,000 MG PO BID Metoprolol Tartrate (Metoprolol Tartrate) 25 Mg Tablet, 25 MG PO BID Allergies Coded Allergies: Olives (Verified Allergy, Severe, THROAT CLOSES/SWELLING , 08/04/21) Peanut (Verified Allergy, Severe, PEANUT OIL/BUTTER=THROAT CLOSES/DYSPNEA, 08/04/21) Grass (Verified Allergy, Mild, 08/04/21) SEASONAL ALLERGIES (Verified Allergy, Mild, 08/04/21) A-FIB/CHADSVASC A-FIB History Current/History of A-Fib/PAF?: No RODRIGUEZ CHAPA MD Aug 04, 2021 14:29
[2021-08-04] MEDS ORDERED: MAG SULF 1GM/100ML (MAG RUN) 1 GM in IV 1 EA IV ONE (15:00)
[2021-08-04] MEDS: ATORVASTATIN 20 MG TAB PO SCH (15:11)
[2021-08-04] MEDS: METOPROLOL TART 25 MG TABLET PO SCH ×2 (15:11→22:09)
[2021-08-04] MEDS: ASPIRIN 81MG ENTERIC TABLET PO SCH (15:11)
--- NOTE | 2021-08-04 19:59 | ECGEPIP ---
[facility] - ED Test Date: 2021-08-04 Pat Name: CASEY GLASS Department: Room: [place] [address] Gender: Male [employer] Singer: ED : 1965 Requested By: JOSE Angeles Order Number: [id number] Reading MD: Jewels Galaviz Measurements Intervals [place] Rate: 91 P: 62 MO: 146 QRS: 9 QRSD: 82 T: 27 QT: 338 QTc: 415 Interpretive Statements Normal sinus rhythm Nonspecific T wave abnormality simialr 06/04/21 Electronically Signed on 08-04-2021 19:58:58 EDT by Jewels Galaviz
[2021-08-04] MEDS ORDERED: ONDANSETRON 4MG/2ML VIAL IV ONE (21:40)
[2021-08-04 22:00] VITALS: BP 160/69
[2021-08-05 06:00] VITALS: BP 118/66
[2021-08-05] MEDS ORDERED: ACETAMINOPHEN TAB 650MG DOSE (2X325MG) PO PRN (06:30)
[2021-08-05] MEDS: NS 1,000 ML IV SCH ×3 (06:42→20:19)
[2021-08-05 07:52] LABS: HEMATOCRIT 26.6 % (42.0-52.0); HEMOGLOBIN 9.4 g/dl (13.5-17.5); MEAN CORPUSCULAR HEMOGLOBIN 27.8 pg (27.0-33.0); MEAN CORPUSCULAR HGB CONC 35.3 g/dl (32.0-36.5); MEAN CORPUSCULAR VOLUME 78.7 fl (80.0-96.0); PLATELET COUNT, AUTOMATED 151 10^3/uL (150-450); RED BLOOD COUNT 3.38 10^6/uL (4.30-6.10); WHITE BLOOD COUNT 7.4 10^3/uL (4.0-10.0)
[2021-08-05 08:08] LABS: ALBUMIN 2.1 GM/DL (3.2-5.2); ALT/SGPT 17 U/L (12-78); BILIRUBIN,TOTAL 0.2 MG/DL (0.2-1.0); BLOOD UREA NITROGEN 34 MG/DL (7-18); CALCIUM LEVEL 7.5 MG/DL (8.5-10.1); CARBON DIOXIDE LEVEL 23 MEQ/L (21-32); CHLORIDE LEVEL 104 MEQ/L (98-107); CREATININE FOR GFR 1.14 MG/DL (0.70-1.30); GLOMERULAR FILTRATION RATE > 60.0 (>56); GLUCOSE, FASTING 282 MG/DL (70-100); MAGNESIUM LEVEL 1.8 MG/DL (1.8-2.4); POTASSIUM SERUM 4.1 MEQ/L (3.5-5.1); SODIUM LEVEL 133 MEQ/L (136-145); TOTAL PROTEIN 5.8 GM/DL (6.4-8.2)
[2021-08-05] MEDS: ASPIRIN 81MG ENTERIC TABLET PO SCH (08:44)
[2021-08-05] MEDS: ATORVASTATIN 20 MG TAB PO SCH (08:46)
[2021-08-05] MEDS: METOPROLOL TART 25 MG TABLET PO SCH ×2 (08:49→20:04)
[2021-08-05] MEDS ORDERED: FLUBLOK(EGG FREE)(QUAD)INFLUENZA VACC 0.5ML SYRINGE 18YRS & OLDER IM ONE (09:00)
[2021-08-05 14:00] VITALS: BP_SYST 102; BP_SYST 88; BP_DIAS 57; BP_DIAS 58
[2021-08-05 14:15] VITALS: BP 131/81
[2021-08-05] MEDS ORDERED: PHENYTOIN INJection 1,000 MG in NS 100 ML IV ONE (14:30)
[2021-08-05 15:54] LABS: BASO % 0.2 % (0.0-1.0); HEMATOCRIT 25.3 % (42.0-52.0); HEMOGLOBIN 8.9 g/dl (13.5-17.5); LYMPH # 1.9 10^3/uL (1.5-5.0); LYMPH % 22.5 % (24.0-44.0); MEAN CORPUSCULAR HEMOGLOBIN 27.6 pg (27.0-33.0); MEAN CORPUSCULAR HGB CONC 35.2 g/dl (32.0-36.5); MEAN CORPUSCULAR VOLUME 78.6 fl (80.0-96.0); MONO # 0.5 10^3/uL (0.0-0.8); MONO % 5.8 % (2.0-8.0); NEUTROPHILS # 6.1 10^3/uL (1.5-8.5); PLATELET COUNT, AUTOMATED 146 10^3/uL (150-450); RED BLOOD COUNT 3.22 10^6/uL (4.30-6.10); WHITE BLOOD COUNT 8.6 10^3/uL (4.0-10.0)
[2021-08-05 16:27] LABS: ALBUMIN 2.1 GM/DL (3.2-5.2); ALT/SGPT 16 U/L (12-78); BILIRUBIN,TOTAL 0.3 MG/DL (0.2-1.0); BLOOD UREA NITROGEN 32 MG/DL (7-18); CALCIUM LEVEL 7.5 MG/DL (8.5-10.1); CARBON DIOXIDE LEVEL 23 MEQ/L (21-32); CHLORIDE LEVEL 104 MEQ/L (98-107); CREATININE FOR GFR 1.15 MG/DL (0.70-1.30); GLOMERULAR FILTRATION RATE > 60.0 (>56); GLUCOSE, FASTING 275 MG/DL (70-100); POTASSIUM SERUM 4.3 MEQ/L (3.5-5.1); SODIUM LEVEL 135 MEQ/L (136-145); TOTAL PROTEIN 5.6 GM/DL (6.4-8.2)
[2021-08-05 16:28] LABS: CPK CREATINE PHOSPHOKINASE 131 U/L (39-308); MB/CK RELATIVE INDEX 2.29 (< OR =4); TROPONIN I < 0.02 NG/ML (< 0.10)
--- NOTE | 2021-08-05 18:36 | IPNPDOC ---
Text Note Date of Service The patient was seen on 08/05/21. NOTE Subjective: Patient seen and examined at bedside. No acute overnight events reported. Patient notes some improvement with his diarrhea. He also noted one episode of vomiting overnight which he described as nonbilious and nonbloody. Later in the day, mid afternoon, it was reported he had a seizure. Patient notes he has a history of seizures. Patient states his last seizure was a few months ago. He states he does not take anti-epileptic medications. Objective: Vital Signs: reviewed General: NAD, sitting comfortably in chair HEENT: NC/AT, EOMI Respiratory: Speaking in full sentences easily, no accessory muscle use Abd: nondistended Ext: no edema Skin: no rashes MSK: full ROM at large joints Neuro: no gross focal deficits Psych: AAOx3 A/P: 56 yo male presents for general myalgia, non-bloody diarrhea, weakness with sick contacts for COVID. In ED found to be +COVID, hypotensive. #diarrhea - GI panel +EPEC - supportive care #COVID - not hypoxic, minimal dyspnea on exertion - supportive care #seizure - discussed with neurology - loading dose of dilantin - continue dilantin 200 IV BID #hypotensive - likely hypovolemic - IV fluids for now #HTN - home meds with hold parameters #DVT prophylaxis - mechanical for now Disposition: continue IV fluids, anticipate discharge in 24-48 hours, patient states he cannot return home until Saturday VS,Fishbone, I+O VS, Fishbone, I+O Laboratory Tests 08/05/21 07:22 08/05/21 15:38 Vital Signs Date Time Temp Pulse Resp B/P (MAP) Pulse Ox O2 Delivery O2 Flow Rate FiO2 08/05/21 14:15 97 131/81 (98) 99 Room Air 08/05/21 13:55 100.0 08/05/21 06:00 16 I&O- Last 24 Hours up to 6 AM 08/05/21 06:00 Intake Total 3580 ml Output Total 600 ml Balance 2980 ml RODRIGUEZ CHAPA MD Aug 05, 2021 18:36
[2021-08-05 19:04] VITALS: BP 118/78
[2021-08-05] MEDS: ACETAMINOPHEN TAB 650MG DOSE (2X325MG) PO PRN (20:20)
[2021-08-06 06:20] LABS: BASO % 0.2 % (0.0-1.0); HEMATOCRIT 25.4 % (42.0-52.0); LYMPH # 1.7 10^3/uL (1.5-5.0); LYMPH % 17.3 % (24.0-44.0); MEAN CORPUSCULAR HGB CONC 35.4 g/dl (32.0-36.5); MEAN CORPUSCULAR VOLUME 79.1 fl (80.0-96.0); MONO # 0.5 10^3/uL (0.0-0.8); MONO % 4.5 % (2.0-8.0); NEUTROPHILS # 7.7 10^3/uL (1.5-8.5); NEUTROPHILS % 77.4 % (36.0-66.0); PLATELET COUNT, AUTOMATED 151 10^3/uL (150-450); RED BLOOD COUNT 3.21 10^6/uL (4.30-6.10)
[2021-08-06 06:39] LABS: ALT/SGPT 14 U/L (12-78); BILIRUBIN,TOTAL 0.3 MG/DL (0.2-1.0); BLOOD UREA NITROGEN 24 MG/DL (7-18); CALCIUM LEVEL 7.6 MG/DL (8.5-10.1); CARBON DIOXIDE LEVEL 24 MEQ/L (21-32); CHLORIDE LEVEL 105 MEQ/L (98-107); CREATININE FOR GFR 1.12 MG/DL (0.70-1.30); GLOMERULAR FILTRATION RATE > 60.0 (>56); GLUCOSE, FASTING 229 MG/DL (70-100); SODIUM LEVEL 135 MEQ/L (136-145); TOTAL PROTEIN 5.9 GM/DL (6.4-8.2)
[2021-08-06 08:00] VITALS: BP 125/82
[2021-08-06] MEDS: ATORVASTATIN 20 MG TAB PO SCH (09:14)
[2021-08-06] MEDS: ASPIRIN 81MG ENTERIC TABLET PO SCH (09:14)
[2021-08-06] MEDS: METOPROLOL TART 25 MG TABLET PO SCH ×2 (09:20→20:16)
[2021-08-06] MEDS: NS 1,000 ML IV SCH ×3 (09:22→23:54)
[2021-08-06] MEDS: PHENYTOIN ER 100 MG CAP PO SCH ×2 (11:32→20:16)
[2021-08-06 13:20] VITALS: BP 120/74
[2021-08-06] MEDS: ACETAMINOPHEN TAB 650MG DOSE (2X325MG) PO PRN ×2 (13:21→20:16)
--- NOTE | 2021-08-06 13:23 | IPNPDOC ---
Text Note Date of Service The patient was seen on 08/06/21. NOTE Subjective: Patient seen and examined at bedside. No acute overnight events reported. Patient notes no further diarrhea. No seizures. Objective: Vital Signs: reviewed General: NAD, comfortably in bed HEENT: NC/AT, EOMI Respiratory: Speaking in full sentences easily, no accessory muscle use Abd: nondistended Ext: no edema Skin: no rashes MSK: full ROM at large joints Neuro: no gross focal deficits Psych: AAOx3 A/P: 56 yo male presents for general myalgia, non-bloody diarrhea, weakness with sick contacts for COVID. In ED found to be +COVID, hypotensive. #diarrhea - GI panel +EPEC - supportive care #COVID - not hypoxic, minimal dyspnea on exertion - supportive care #seizure - discussed with neurology - loading dose of dilantin - continue dilantin 200 PO BID #hypotensive - resolved - likely hypovolemic - IV fluids for now #HTN - home meds with hold parameters #DVT prophylaxis - mechanical for now Disposition: continue IV fluids, anticipate discharge tomomrrow Saturday VS,Roberto, I+O VS, Jamiee, I+O Laboratory Tests 08/05/21 15:38 08/06/21 05:40 Vital Signs Date Time Temp Pulse Resp B/P (MAP) Pulse Ox O2 Delivery O2 Flow Rate FiO2 08/06/21 13:20 101.3 96 18 120/74 (89) 94 Room Air I&O- Last 24 Hours up to 6 AM 08/06/21 06:00 Intake Total 540 ml Output Total 975 ml Balance -435 ml RODRIGUEZ CHAPA MD Aug 06, 2021 13:23
[2021-08-06] MEDS ORDERED: GLUCAGON INJ 1MG VIAL SC PRN (19:45)
[2021-08-06] MEDS ORDERED: GLUCOSE 4GM CHEW TABLET PO PRN (19:45)
[2021-08-06] MEDS ORDERED: DEXTROSE 50% 50 ML SYRINGE IV PRN (19:45)
[2021-08-06 20:29] VITALS: BP 122/82
[2021-08-06] MEDS ORDERED: HumaLOG INSULIN (NovoLOG) PER UNIT SC SCH (21:00)
[2021-08-07 06:00] VITALS: BP 140/81
[2021-08-07 06:00] LABS: BASO % 0.2 % (0.0-1.0); EOS % 0.2 % (0.0-3.0); HEMATOCRIT 23.4 % (42.0-52.0); LYMPH # 2.2 10^3/uL (1.5-5.0); MEAN CORPUSCULAR HEMOGLOBIN 27.5 pg (27.0-33.0); MEAN CORPUSCULAR HGB CONC 34.2 g/dl (32.0-36.5); MEAN CORPUSCULAR VOLUME 80.4 fl (80.0-96.0); MONO # 0.5 10^3/uL (0.0-0.8); MONO % 5.1 % (2.0-8.0); NEUTROPHILS # 6.2 10^3/uL (1.5-8.5); NEUTROPHILS % 69.7 % (36.0-66.0); PLATELET COUNT, AUTOMATED 134 10^3/uL (150-450); RED BLOOD COUNT 2.91 10^6/uL (4.30-6.10); WHITE BLOOD COUNT 8.9 10^3/uL (4.0-10.0)
[2021-08-07 06:26] LABS: ALBUMIN 1.7 GM/DL (3.2-5.2); ALT/SGPT 14 U/L (12-78); BILIRUBIN,TOTAL 0.2 MG/DL (0.2-1.0); BLOOD UREA NITROGEN 14 MG/DL (7-18); CALCIUM LEVEL 7.9 MG/DL (8.5-10.1); CARBON DIOXIDE LEVEL 23 MEQ/L (21-32); CHLORIDE LEVEL 107 MEQ/L (98-107); CREATININE FOR GFR 0.89 MG/DL (0.70-1.30); GLOMERULAR FILTRATION RATE > 60.0 (>56); GLUCOSE, FASTING 224 MG/DL (70-100); POTASSIUM SERUM 3.7 MEQ/L (3.5-5.1); SODIUM LEVEL 137 MEQ/L (136-145); TOTAL PROTEIN 5.5 GM/DL (6.4-8.2)
[2021-08-07 08:50] LABS: PROLACTIN 3.6 NG/ML (2.1-17.7)
[2021-08-07] MEDS: HumaLOG INSULIN (NovoLOG) PER UNIT SC SCH ×2 (08:51→12:53)
[2021-08-07] MEDS: PHENYTOIN ER 100 MG CAP PO SCH (08:52)
[2021-08-07] MEDS: ASPIRIN 81MG ENTERIC TABLET PO SCH (08:52)
[2021-08-07 08:53] VITALS: BP 131/82
[2021-08-07] MEDS: METOPROLOL TART 25 MG TABLET PO SCH (08:53)
[2021-08-07] MEDS: ATORVASTATIN 20 MG TAB PO SCH (08:53)
[2021-08-07] MEDS ORDERED: DILA100C PO (14:18)
--- NOTE | 2021-08-07 15:40 | DS.PDOC ---
Discharge Summary General Date of Admission Aug 04, 2021 at 07:22 Date of Discharge 08/07/21 Discharge Summary PROCEDURES PERFORMED DURING STAY: [None]. DISCHARGE DIAGNOSES: 1. EPEC gastroenteritis 2. COVID+ COMPLICATIONS/CHIEF COMPLAINT: Diarrhea. HISTORY OF PRESENT ILLNESS: . HOSPITAL COURSE: . DISCHARGE MEDICATIONS: Please see below. ALLERGIES: Please see below. PHYSICAL EXAMINATION ON DISCHARGE: VITAL SIGNS: Please see below. GENERAL: HEENT: NECK: CARDIOVASCULAR EXAMINATION: RESPIRATORY EXAMINATION: ABDOMINAL EXAMINATION: EXTREMITIES: SKIN: NEUROLOGICAL EXAMINATION: PSYCHIATRIC EXAMINATION: LABORATORY DATA: Please see below. IMAGING: PROGNOSIS: ACTIVITY: [As tolerated]. DIET: DISCHARGE PLAN: DISPOSITION: . DISCHARGE INSTRUCTIONS: 1. . ITEMS TO FOLLOWUP ON ON OUTPATIENT: 1. . DISCHARGE CONDITION: [Stable]. TIME SPENT ON DISCHARGE: 35 minutes. Vital Signs/I&Os Vital Signs Date Time Temp Pulse Resp B/P (MAP) Pulse Ox O2 Delivery O2 Flow Rate FiO2 08/07/21 08:53 94 131/82 08/07/21 06:00 98.3 18 97 Nasal Cannula 2.0 I&O- Last 24 Hours up to 6 AM 08/07/21 06:00 Intake Total 3810 ml Output Total 2625 ml Balance 1185 ml Laboratory Data Labs 24H Laboratory Tests 2 08/06/21 20:09: Bedside Glucose (Misc Panel) 255H 08/07/21 05:38: Immature Granulocyte % (Auto) 0.8, Neutrophils (%) (Auto) 69.7H, Lymphocytes (%) (Auto) 24.0, Monocytes (%) (Auto) 5.1, Eosinophils (%) (Auto) 0.2, Basophils (%) (Auto) 0.2, Neutrophils # (Auto) 6.2, Lymphocytes # (Auto) 2.2, Monocytes # (Auto) 0.5, Eosinophils # (Auto) 0.0, Basophils # (Auto) 0.0, Nucleated Red Blood Cells % (auto) 0.0, Anion Gap 7L, Glomerular Filtration Rate > 60.0, Calcium Level 7.9L, Total Bilirubin 0.2, Aspartate Amino Transf (AST/SGOT) 18, Alanine Aminotransferase (ALT/SGPT) 14, Alkaline Phosphatase 35L, Total Protein 5.5L, Albumin 1.7L, Albumin/Globulin Ratio 0.4 08/07/21 11:45: Bedside Glucose (Misc Panel) 200H CBC/BMP Laboratory Tests 08/07/21 05:38 FSBS Laboratory Tests Test 08/06/21 20:09 08/07/21 11:45 Range/Units Bedside Glucose (Misc Panel) 255 200 70-105 MG/DL Microbiology Microbiology 08/04/21 Gastrointestinal Tract Panel (PCR) - Final, Complete Enteropathogenic E.coli 08/04/21 Blood Culture - Preliminary, Resulted No Growth after 72 hours. All specime... 08/04/21 Blood Culture - Preliminary, Resulted No Growth after 72 hours. All specime... 08/04/21 Respiratory Virus Panel (PCR) (JOHANNA) - Final, Complete SARS-CoV-2 (COVID 19) Discharge Medications Scheduled Aspirin (Aspirin EC) 81 Mg Tablet.dr, 81 MG PO DAILY, (Reported) Atorvastatin Calcium (Atorvastatin Calcium) 40 Mg Tablet, 40 MG PO DAILY, (Reported) Lisinopril (Lisinopril) 20 Mg Tablet, 10 MG PO DAILY, (Reported) Metformin HCl (Metformin HCl) 1,000 Mg Tablet, 1,000 MG PO BID, (Reported) Metoprolol Tartrate (Metoprolol Tartrate) 25 Mg Tablet, 25 MG PO BID, (Reported) Phenytoin Sodium Extended (Dilantin) 100 Mg Capsule, 200 MG PO BID Allergies Coded Allergies: Olives (Verified Allergy, Severe, THROAT CLOSES/SWELLING , 08/04/21) Peanut (Verified Allergy, Severe, PEANUT OIL/BUTTER=THROAT CLOSES/DYSPNEA, 08/04/21) Grass (Verified Allergy, Mild, 08/04/21) SEASONAL ALLERGIES (Verified Allergy, Mild, 08/04/21) RODRIGUEZ CHAPA MD Aug 07, 2021 15:40
== END 2021-08-07 15:37 | disposition home health service (06) | DRG 248 ==
LOC: M ED 01:13 → M ED INP 07:22 → ENRESERV 08:21 → M 4MAIN 09:38
PROVIDERS: ADMIT Internal Medicine; ATTEND Internal Medicine
DX: A04.0 Enteropathogenic Escherichia coli infection (principal); I95.9 Hypotension, unspecified; U07.1 COVID-19; I10 Essential (primary) hypertension; J30.2 Other seasonal allergic rhinitis; J30.81 Allergic rhinitis due to animal (cat) (dog) hair and dander; Z79.82 Long term (current) use of aspirin; Z79.84 Long term (current) use of oral hypoglycemic drugs; Z79.899 Other long term (current) drug therapy; Z91.010 Allergy to peanuts; Z91.018 Allergy to other foods

== ENCOUNTER → 2021-10-03 | Outpatient (REF) | payer OTHER ==
[~2021-10-03] MED LIST changes: +DILA100C PO; -LISI-898 PO; +LISI5TAB11 PO
[2021-10-03 18:55] LABS: HEMOGLOBIN A1c 9.1 %
[2021-10-03 19:00] LABS: ALBUMIN 3.2 GM/DL (3.2-5.2); ALT/SGPT 19 U/L (12-78); BILIRUBIN,TOTAL < 0.1 MG/DL (0.2-1.0); BLOOD UREA NITROGEN 21 MG/DL (7-18); CALCIUM LEVEL 9.1 MG/DL (8.5-10.1); CARBON DIOXIDE LEVEL 25 MEQ/L (21-32); CHLORIDE LEVEL 110 MEQ/L (98-107); CHOLESTEROL LEVEL 73 MG/DL (<200); CHOLESTEROL RISK RATIO 2.281 (<5); CREATININE FOR GFR 0.88 MG/DL (0.70-1.30); GLOMERULAR FILTRATION RATE > 60.0 (>56); GLUCOSE, FASTING 149 MG/DL (70-100); HDL CHOLESTEROL 32 MG/DL (>40); LDL CHOLESTEROL 12 MG/DL (<100); NON-HDL-C 41 MG/DL; POTASSIUM SERUM 4.4 MEQ/L (3.5-5.1); SODIUM LEVEL 142 MEQ/L (136-145); TOTAL PROTEIN 7.5 GM/DL (6.4-8.2); TRIGLYCERIDES LEVEL 144 MG/DL (<150)
== END ==
LOC: M LAB REF 17:04
PROVIDERS: ATTEND Family Medicine Addiction Medicine
DX: E11.69 Type 2 diabetes mellitus with other specified complication (principal)

== ENCOUNTER 2022-06-10 23:04 | Emergency (ER) | payer OTHER ==
[~2022-06-10] VITALS: Ht 170.2 cm; Wt 74.1 kg
[~2022-06-10 23:04] MED LIST changes: +CHOL378P3 PO; -CHOL4POW2 PO; -CHOL4POW3 PO; +CHOL4POW35 PO
[2022-06-11 01:54] VITALS: BP 124/87
== END 2022-06-11 01:59 | disposition home or self-care (01) ==
LOC: M ED 23:04 → EDBD 23:04 → M ED 06-11 01:59
DX: M62.838 Other muscle spasm (principal); F43.9 Reaction to severe stress, unspecified; I10 Essential (primary) hypertension; Z79.82 Long term (current) use of aspirin; Z79.84 Long term (current) use of oral hypoglycemic drugs; Z79.899 Other long term (current) drug therapy; Z91.010 Allergy to peanuts; Z91.018 Allergy to other foods

== ENCOUNTER 2022-08-22 09:54 | Emergency (ER) | payer OTHER ==
[2022-08-22] MEDS ORDERED: PANTOPRAZOLE 40MG VIAL IV ONE (10:35)
[2022-08-22 10:49] LABS: BASO # 0.1 10^3/uL (0.0-0.2); BASO % 0.8 % (0.0-1.0); EOS # 0.4 10^3/uL (0.0-0.5); EOS % 3.5 % (0.0-3.0); HEMOGLOBIN 10.8 g/dl (13.5-17.5); LYMPH # 2.5 10^3/uL (1.5-5.0); LYMPH % 24.6 % (24.0-44.0); MEAN CORPUSCULAR HEMOGLOBIN 29.1 pg (27.0-33.0); MEAN CORPUSCULAR HGB CONC 34.8 g/dl (32.0-36.5); MEAN CORPUSCULAR VOLUME 83.6 fl (80.0-96.0); MONO # 0.8 10^3/uL (0.0-0.8); MONO % 7.7 % (2.0-8.0); NEUTROPHILS # 6.5 10^3/uL (1.5-8.5); NEUTROPHILS % 63.1 % (36.0-66.0); PLATELET COUNT, AUTOMATED 215 10^3/uL (150-450); RED BLOOD COUNT 3.71 10^6/uL (4.30-6.10); WHITE BLOOD COUNT 10.3 10^3/uL (4.0-10.0)
[2022-08-22 11:32] LABS: CK-MB VALUE MASS 2.5 NG/ML (<3.6); MB/CK RELATIVE INDEX 1.19 (< OR =4)
[2022-08-22 12:30] LABS: ALBUMIN 3.1 GM/DL (3.2-5.2); ALT/SGPT 22 U/L (12-78); BILIRUBIN,DIRECT < 0.1 MG/DL (0.0-0.2); BILIRUBIN,TOTAL 0.3 MG/DL (0.2-1.0); BLOOD UREA NITROGEN 20 MG/DL (7-18); CALCIUM LEVEL 8.8 MG/DL (8.5-10.1); CARBON DIOXIDE LEVEL 26 MEQ/L (21-32); CHLORIDE LEVEL 105 MEQ/L (98-107); CREATININE FOR GFR 1.09 MG/DL (0.70-1.30); GLOMERULAR FILTRATION RATE > 60.0 (>56); GLUCOSE, FASTING 324 MG/DL (70-100); LIPASE 337 U/L (73-393); POTASSIUM SERUM 4.5 MEQ/L (3.5-5.1); SODIUM LEVEL 136 MEQ/L (136-145); TOTAL PROTEIN 6.8 GM/DL (6.4-8.2)
[2022-08-22] MEDS ORDERED: CARA1TAB6 PO ×2 (12:38→13:08)
[2022-08-22 12:59] VITALS: BP 164/103
== END 2022-08-22 13:20 | disposition home or self-care (01) ==
LOC: EDBD 09:54 → M ED 09:54
DX: K29.50 Unspecified chronic gastritis without bleeding (principal); R07.89 Other chest pain; R00.0 Tachycardia, unspecified; E11.9 Type 2 diabetes mellitus without complications; E78.5 Hyperlipidemia, unspecified; I10 Essential (primary) hypertension; Z86.16 Personal history of COVID-19; Z86.73 Personal history of transient ischemic attack (TIA), and cerebral infarction without residual deficits; Z90.49 Acquired absence of other specified parts of digestive tract; J30.2 Other seasonal allergic rhinitis; Z91.010 Allergy to peanuts; Z79.82 Long term (current) use of aspirin; Z79.84 Long term (current) use of oral hypoglycemic drugs; Z79.899 Other long term (current) drug therapy
CPT/HCPCS: 71045; 80048; 80076; 82550; 82553; 83690; 85025; 93005; 93041; 94760; 96374; 99285; C9113

== ENCOUNTER 2022-10-06 14:20 | Inpatient (IN) | payer OTHER ==
[~2022-10-06 14:20] MED LIST changes: +CARA1TAB6 PO; -DOXY-350 PO; +DOXY-444 PO; -POTA10CA32 PO; +POTA10CA33 PO
[2022-10-06] MEDS ORDERED: ISOVUE-370 76% 100ML VIAL As Ordered ONE (14:29)
[2022-10-06 14:42] LABS: BASO # 0.1 10^3/uL (0.0-0.2); BASO % 0.8 % (0.0-1.0); EOS # 0.4 10^3/uL (0.0-0.5); EOS % 3.9 % (0.0-3.0); HEMATOCRIT 31.4 % (42.0-52.0); HEMOGLOBIN 10.7 g/dl (13.5-17.5); LYMPH # 2.9 10^3/uL (1.5-5.0); LYMPH % 31.7 % (24.0-44.0); MEAN CORPUSCULAR HEMOGLOBIN 28.5 pg (27.0-33.0); MEAN CORPUSCULAR HGB CONC 34.1 g/dl (32.0-36.5); MEAN CORPUSCULAR VOLUME 83.5 fl (80.0-96.0); MONO # 0.7 10^3/uL (0.0-0.8); MONO % 7.5 % (2.0-8.0); NEUTROPHILS # 5.1 10^3/uL (1.5-8.5); NEUTROPHILS % 55.9 % (36.0-66.0); PLATELET COUNT, AUTOMATED 201 10^3/uL (150-450); RED BLOOD COUNT 3.76 10^6/uL (4.30-6.10); WHITE BLOOD COUNT 9.2 10^3/uL (4.0-10.0)
[2022-10-06 14:55] LABS: INR 1.02; PROTHROMBIN TIME 13.6 SECONDS (12.5-14.5)
[2022-10-06 14:56] LABS: PARTIAL THROMBOPLASTIN TIME 25.6 SECONDS (24.8-34.2)
[2022-10-06 15:18] LABS: CK-MB VALUE MASS 3.2 NG/ML (<3.6)
[2022-10-06 15:20] LABS: MB/CK RELATIVE INDEX 1.9 (< OR =4)
[2022-10-06 15:23] LABS: RSV AMPLIFICATION NEGATIVE (NEGATIVE)
[2022-10-06] MEDS ORDERED: ACETAMINOPHEN 325 MG TAB PO ONE (16:55)
[2022-10-06] MEDS ORDERED: STEG5TAB PO (17:19)
[2022-10-06] MEDS ORDERED: PHEN100C PO (17:19)
[2022-10-06] MEDS ORDERED: METF-839 PO (17:24)
[2022-10-06] MEDS ORDERED: ASPIRIN 325 MG TAB PO ONE (18:20)
[2022-10-06] MEDS ORDERED: MED REC COMMENT (18:21)
[2022-10-06] MEDS ORDERED: HOME MED LIST COMPLETE! XX SCH (18:25)
[2022-10-06] MEDS ORDERED: GLUCOSE 4GM CHEW TABLET PO PRN (18:25)
[2022-10-06] MEDS ORDERED: DEXTROSE 50% 50 ML SYRINGE IV PRN (18:25)
[2022-10-06] MEDS ORDERED: CLOPIDOGREL 75 MG TAB PO ONE (18:25)
[2022-10-06] MEDS ORDERED: GLUCAGON INJ 1MG VIAL SC PRN (18:25)
[2022-10-06 19:33] LABS: CHOLESTEROL RISK RATIO 3.28 (<5); LDL CHOLESTEROL 58.8 MG/DL (<100); PERCENT SATURATION 23.3 % (19.7-50.0)
[2022-10-06 19:35] LABS: FERRITIN 16.1 NG/ML (10.5-307.3); FOLATE 22.17 NG/ML (>5.4); FREE T4 1.31 NG/DL (0.89-1.76); THYROID STIMULATING HORMONE 0.568 uIU/ML (0.55-4.78)
[2022-10-06 21:18] VITALS: BP 164/90
[2022-10-06 21:42] VITALS: BP 159/88
[2022-10-06] MEDS: ATORVASTATIN 20 MG TAB PO SCH (22:14)
[2022-10-06] MEDS: INSULIN LISPRO (NovoLOG) PER UNIT SC SCH (22:14)
[2022-10-06] MEDS: HEPARIN SOD (PORCINE) 5000UNITS/ML 1ML VIAL/SYRINGE SC SCH (22:14)
[2022-10-06] MEDS: PHENYTOIN ER 100 MG CAP PO SCH (22:14)
[2022-10-06] MEDS: METOPROLOL TART 25 MG TABLET PO SCH (22:14)
[2022-10-07] VITALS: BP 144/70
[2022-10-07 04:00] VITALS: BP 108/70
[2022-10-07] MEDS: HEPARIN SOD (PORCINE) 5000UNITS/ML 1ML VIAL/SYRINGE SC SCH ×3 (05:07→22:20)
[2022-10-07 05:26] LABS: HEMATOCRIT 28.2 % (42.0-52.0); HEMOGLOBIN 9.8 g/dl (13.5-17.5); MEAN CORPUSCULAR HEMOGLOBIN 28.7 pg (27.0-33.0); MEAN CORPUSCULAR HGB CONC 34.8 g/dl (32.0-36.5); MEAN CORPUSCULAR VOLUME 82.7 fl (80.0-96.0); PLATELET COUNT, AUTOMATED 181 10^3/uL (150-450); RED BLOOD COUNT 3.41 10^6/uL (4.30-6.10); WHITE BLOOD COUNT 7.7 10^3/uL (4.0-10.0)
[2022-10-07 05:49] LABS: BLOOD UREA NITROGEN 23 MG/DL (9-23); CALCIUM LEVEL 8.4 MG/DL (8.5-10.1); CARBON DIOXIDE LEVEL 27 MMOL/L (20-31); CHLORIDE LEVEL 104 MMOL/L (98-107); CREATININE FOR GFR 1.29 MG/DL (0.70-1.30); GLOMERULAR FILTRATION RATE > 60.0 (>56); GLUCOSE, FASTING 201 MG/DL (60-100); PHOSPHORUS LEVEL 5.7 MG/DL (2.5-4.9); POTASSIUM SERUM 3.8 MMOL/L (3.5-5.1); SODIUM LEVEL 138 MMOL/L (136-145)
[2022-10-07 08:45] VITALS: BP 137/78
[2022-10-07] MEDS ORDERED: CLOPIDOGREL 75 MG TAB PO SCH (09:00)
[2022-10-07] MEDS: METOPROLOL TART 25 MG TABLET PO SCH ×2 (09:00→20:42)
[2022-10-07] MEDS ORDERED: ASPIRIN 81MG ENTERIC TABLET PO SCH (09:00)
[2022-10-07] MEDS: ASPIRIN 325 MG TAB PO SCH (09:32)
[2022-10-07] MEDS: PHENYTOIN ER 100 MG CAP PO SCH ×2 (09:32→20:43)
[2022-10-07] MEDS: INSULIN LISPRO (NovoLOG) PER UNIT SC SCH ×4 (09:33→20:42)
[2022-10-07 16:24] VITALS: BP 127/77
[2022-10-07 19:48] VITALS: BP 139/86
[2022-10-07] MEDS: ATORVASTATIN 20 MG TAB PO SCH (20:43)
[2022-10-08 04:38] VITALS: BP 156/96
[2022-10-08 04:50] LABS: HEMATOCRIT 29.3 % (42.0-52.0); MEAN CORPUSCULAR HEMOGLOBIN 28.7 pg (27.0-33.0); MEAN CORPUSCULAR HGB CONC 34.1 g/dl (32.0-36.5); PLATELET COUNT, AUTOMATED 190 10^3/uL (150-450); RED BLOOD COUNT 3.49 10^6/uL (4.30-6.10); WHITE BLOOD COUNT 8.4 10^3/uL (4.0-10.0)
[2022-10-08 05:24] LABS: MAGNESIUM LEVEL 2.1 MG/DL (1.8-2.4)
[2022-10-08 05:27] LABS: BLOOD UREA NITROGEN 26 MG/DL (9-23); CALCIUM LEVEL 8.3 MG/DL (8.5-10.1); CARBON DIOXIDE LEVEL 27 MMOL/L (20-31); CHLORIDE LEVEL 106 MMOL/L (98-107); CREATININE FOR GFR 1.22 MG/DL (0.70-1.30); GLOMERULAR FILTRATION RATE > 60.0 (>56); GLUCOSE, FASTING 184 MG/DL (60-100); PHOSPHORUS LEVEL 4.2 MG/DL (2.5-4.9); POTASSIUM SERUM 4.2 MMOL/L (3.5-5.1); SODIUM LEVEL 140 MMOL/L (136-145)
[2022-10-08] MEDS: HEPARIN SOD (PORCINE) 5000UNITS/ML 1ML VIAL/SYRINGE SC SCH ×3 (05:54→21:03)
[2022-10-08 07:51] VITALS: BP 148/91
[2022-10-08] MEDS: INSULIN LISPRO (NovoLOG) PER UNIT SC SCH ×4 (09:02→20:51)
[2022-10-08] MEDS: PHENYTOIN ER 100 MG CAP PO SCH ×2 (09:02→21:02)
[2022-10-08] MEDS: ASPIRIN 325 MG TAB PO SCH (09:02)
[2022-10-08] MEDS: METOPROLOL TART 25 MG TABLET PO SCH ×2 (09:03→21:00)
[2022-10-08 12:00] VITALS: BP 133/80
[2022-10-08 14:35] VITALS: BP 140/90
[2022-10-08] MEDS: ATORVASTATIN 20 MG TAB PO SCH (21:02)
[2022-10-09] MEDS: HEPARIN SOD (PORCINE) 5000UNITS/ML 1ML VIAL/SYRINGE SC SCH ×3 (05:05→20:45)
[2022-10-09 05:39] VITALS: BP 112/74
[2022-10-09] MEDS: ASPIRIN 325 MG TAB PO SCH (09:00)
[2022-10-09] MEDS: PHENYTOIN ER 100 MG CAP PO SCH ×2 (09:01→20:44)
[2022-10-09] MEDS: INSULIN LISPRO (NovoLOG) PER UNIT SC SCH ×4 (09:04→20:54)
[2022-10-09] MEDS: METOPROLOL TART 25 MG TABLET PO SCH ×2 (09:07→20:44)
[2022-10-09] MEDS: ATORVASTATIN 20 MG TAB PO SCH (20:44)
[2022-10-10] MEDS: HEPARIN SOD (PORCINE) 5000UNITS/ML 1ML VIAL/SYRINGE SC SCH ×3 (05:26→20:43)
[2022-10-10 05:35] VITALS: BP 126/74
[2022-10-10] MEDS: INSULIN LISPRO (NovoLOG) PER UNIT SC SCH ×4 (08:10→20:48)
[2022-10-10] MEDS: PHENYTOIN ER 100 MG CAP PO SCH ×2 (08:11→20:42)
[2022-10-10] MEDS: METOPROLOL TART 25 MG TABLET PO SCH ×2 (08:11→20:47)
[2022-10-10] MEDS: ASPIRIN 325 MG TAB PO SCH (08:12)
[2022-10-10] MEDS: ATORVASTATIN 20 MG TAB PO SCH (20:42)
[2022-10-10 20:47] VITALS: BP 150/92
[2022-10-11] VITALS (10 sets, daily range): BP systolic 126–189; BP diastolic 68–116
[2022-10-11] MEDS: HEPARIN SOD (PORCINE) 5000UNITS/ML 1ML VIAL/SYRINGE SC SCH ×3 (05:49→21:39)
[2022-10-11] MEDS ORDERED: FIORICET TAB PO ONE (05:50)
[2022-10-11] MEDS ORDERED: MOM 30ML SUSPENSION UDC PO PRN (08:00)
[2022-10-11] MEDS ORDERED: BISACODYL 5 MG TAB PO PRN (08:00)
[2022-10-11] MEDS ORDERED: MIRALAX *UNIT DOSE* 17GM PACKET PO PRN (08:00)
[2022-10-11] MEDS ORDERED: SENOKOT S TAB PO PRN (08:00)
[2022-10-11] MEDS: INSULIN LISPRO (NovoLOG) PER UNIT SC SCH ×3 (08:53→18:17)
[2022-10-11] MEDS: METOPROLOL TART 25 MG TABLET PO SCH (09:00)
[2022-10-11 09:22] LABS: LIPASE 72 U/L (12-53)
[2022-10-11 09:24] LABS: ALBUMIN 3.1 G/DL (3.2-5.2); ALKALINE PHOSPHATASE 59 U/L (46-116); ALT/SGPT 25 U/L (7.0-40); AST/SGOT 23 U/L (<34); BILIRUBIN,TOTAL 0.2 MG/DL (0.3-1.2); BLOOD UREA NITROGEN 19 MG/DL (9-23); CALCIUM LEVEL 8.5 MG/DL (8.5-10.1); CARBON DIOXIDE LEVEL 25 MMOL/L (20-31); CHLORIDE LEVEL 107 MMOL/L (98-107); CREATININE FOR GFR 1.01 MG/DL (0.70-1.30); GLOMERULAR FILTRATION RATE > 60.0 (>56); GLUCOSE, FASTING 205 MG/DL (60-100); POTASSIUM SERUM 4.7 MMOL/L (3.5-5.1); SODIUM LEVEL 137 MMOL/L (136-145); TOTAL PROTEIN 6.7 G/DL (5.7-8.2)
[2022-10-11] MEDS: ASPIRIN 325 MG TAB PO SCH (09:32)
[2022-10-11] MEDS: PHENYTOIN ER 100 MG CAP PO SCH ×2 (09:32→21:38)
[2022-10-11] MEDS ORDERED: MORPHINE 2 MG/ML 1ML VIAL IV ONE (13:40)
[2022-10-11] MEDS: NITROGLYCERIN 0.4MG SUBL TABLET SL SCH ×3 (13:40→13:50)
[2022-10-11] MEDS ORDERED: GI COCKTAIL 50ML BTL(HYOSCYAMINE/MAALOX/LIDOCAINE VISCOUS)(1:3:1) PO PRN (13:45)
[2022-10-11] MEDS ORDERED: GI COCKTAIL 50ML BTL(HYOSCYAMINE/MAALOX/LIDOCAINE VISCOUS)(1:3:1) PO ONE (13:45)
[2022-10-11] MEDS ORDERED: PANTOPRAZOLE 40MG VIAL IV ONE (13:45)
[2022-10-11] MEDS ORDERED: ISOVUE-370 76% 100ML VIAL As Ordered ONE (14:12)
[2022-10-11 14:27] LABS: CK-MB VALUE MASS 1.4 NG/ML (<3.6)
[2022-10-11] MEDS ORDERED: PHENYTOIN INJection 1,000 MG in NS 100 ML IV ONE ×2 (14:30)
[2022-10-11 14:31] LABS: MB/CK RELATIVE INDEX 1.06 (< OR =4)
[2022-10-11 16:32] LABS: PHENYTOIN (DILANTIN) 12.2 UG/ML (10.0-20.0)
[2022-10-11 16:34] LABS: ALKALINE PHOSPHATASE 58 U/L (46-116); ALT/SGPT 26 U/L (7.0-40); AST/SGOT 19 U/L (<34); BILIRUBIN,TOTAL < 0.2 MG/DL (0.3-1.2); BLOOD UREA NITROGEN 21 MG/DL (9-23); CALCIUM LEVEL 8.2 MG/DL (8.5-10.1); CARBON DIOXIDE LEVEL 26 MMOL/L (20-31); CHLORIDE LEVEL 103 MMOL/L (98-107); CREATININE FOR GFR 0.94 MG/DL (0.70-1.30); GLOMERULAR FILTRATION RATE > 60.0 (>56); GLUCOSE, FASTING 252 MG/DL (60-100); POTASSIUM SERUM 4.3 MMOL/L (3.5-5.1); SODIUM LEVEL 137 MMOL/L (136-145); TOTAL PROTEIN 6.8 G/DL (5.7-8.2)
[2022-10-11 16:37] LABS: PROLACTIN 7.94 NG/ML (2.1-17.7)
[2022-10-11] MEDS ORDERED: GLUCAGON INJ 1MG VIAL SC PRN (16:55)
[2022-10-11] MEDS ORDERED: LACTULOSE 20 GM/30 ML SYRUP UD PR ONE (16:55)
[2022-10-11] MEDS ORDERED: GLUCOSE 4GM CHEW TABLET PO PRN (16:55)
[2022-10-11] MEDS ORDERED: DEXTROSE 50% 50 ML SYRINGE IV PRN (16:55)
[2022-10-11] MEDS ORDERED: LORazepam 2 MG/ML VIAL IV PRN (16:55)
[2022-10-11 17:58] LABS: ABG BASE EXCESS 2.2 (-2.0-2.0); ABG HCO3 27.1 MEQ/L (22.0-26.0); ABG PARTIAL PRESSURE CO2 43.3 mmHg (35.0-45.0); ABG PARTIAL PRESSURE O2 111.2 mmHg (75.0-100.0); ABG STANDARD HCO3 26.5 MEQ/L (22.0-26.0); ABG TOTAL CO2 28.4 MEQ/L (22.0-29.0); ABG pH (ARTERIAL) 7.414 UNITS (7.350-7.450)
[2022-10-11] MEDS: ONDANSETRON 4MG ORAL DISINTEGRATING TAB PO PRN (18:16)
[2022-10-11] MEDS ORDERED: diphenhydrAMINE 50MG/ML VIAL IV ONE (22:25)
[2022-10-11] MEDS ORDERED: METOCLOPRAMIDE INJ 10MG/2ML VIAL IV ONE (22:25)
[2022-10-12] MEDS: HEPARIN SOD (PORCINE) 5000UNITS/ML 1ML VIAL/SYRINGE SC SCH ×3 (05:18→21:45)
[2022-10-12 05:39] LABS: HEMATOCRIT 29.2 % (42.0-52.0); HEMOGLOBIN 9.9 g/dl (13.5-17.5); MEAN CORPUSCULAR HEMOGLOBIN 28.6 pg (27.0-33.0); MEAN CORPUSCULAR HGB CONC 33.9 g/dl (32.0-36.5); MEAN CORPUSCULAR VOLUME 84.4 fl (80.0-96.0); PLATELET COUNT, AUTOMATED 177 10^3/uL (150-450); RED BLOOD COUNT 3.46 10^6/uL (4.30-6.10); WHITE BLOOD COUNT 9.5 10^3/uL (4.0-10.0)
[2022-10-12 05:49] LABS: BLOOD UREA NITROGEN 14 MG/DL (9-23); CALCIUM LEVEL 8.5 MG/DL (8.5-10.1); CARBON DIOXIDE LEVEL 24 MMOL/L (20-31); CHLORIDE LEVEL 104 MMOL/L (98-107); GLOMERULAR FILTRATION RATE > 60.0 (>56); GLUCOSE, FASTING 167 MG/DL (60-100); POTASSIUM SERUM 4.2 MMOL/L (3.5-5.1); SODIUM LEVEL 139 MMOL/L (136-145)
[2022-10-12] MEDS: INSULIN LISPRO (NovoLOG) PER UNIT SC SCH ×3 (06:00→12:25)
[2022-10-12 08:10] VITALS: BP 125/74
[2022-10-12] MEDS: PHENYTOIN ER 100 MG CAP PO SCH ×2 (08:38→20:11)
[2022-10-12] MEDS: ONDANSETRON 4MG ORAL DISINTEGRATING TAB PO PRN (08:43)
[2022-10-12] MEDS ORDERED: ASPIRIN 300 MG SUPP PR SCH (09:00)
[2022-10-12 10:17] VITALS: BP 121/67
[2022-10-12 12:00] VITALS: BP 117/65
[2022-10-12 20:11] VITALS: BP 120/69
[2022-10-13] MEDS: HEPARIN SOD (PORCINE) 5000UNITS/ML 1ML VIAL/SYRINGE SC SCH ×3 (06:11→23:15)
[2022-10-13 07:57] VITALS: BP 122/76
[2022-10-13 08:00] VITALS: BP 122/76
[2022-10-13 10:04] VITALS: BP 143/83
[2022-10-13] MEDS ORDERED: ACETAMINOPHEN 500 MG TAB PO ONE (10:15)
[2022-10-13] MEDS: ONDANSETRON 4MG ORAL DISINTEGRATING TAB PO PRN (10:23)
[2022-10-13] MEDS: ASPIRIN 81MG CHEW TABLET PO SCH (10:23)
[2022-10-13 20:26] VITALS: BP 158/85
[2022-10-14 02:54] VITALS: BP 133/87
[2022-10-14] MEDS: CALCIUM CARBONATE 500 MG CHEW U/D PO PRN (03:11)
[2022-10-14] MEDS: ONDANSETRON 4MG ORAL DISINTEGRATING TAB PO PRN (03:13)
[2022-10-14] MEDS: HEPARIN SOD (PORCINE) 5000UNITS/ML 1ML VIAL/SYRINGE SC SCH ×3 (06:32→20:16)
[2022-10-14 07:53] VITALS: BP 117/65
[2022-10-14 08:00] VITALS: BP 117/65
[2022-10-14] MEDS: PHENYTOIN ER 100 MG CAP PO SCH ×2 (09:00→20:04)
[2022-10-14] MEDS: ASPIRIN 81MG CHEW TABLET PO SCH (09:17)
[2022-10-14 20:00] VITALS: BP 149/87
[2022-10-15] MEDS: HEPARIN SOD (PORCINE) 5000UNITS/ML 1ML VIAL/SYRINGE SC SCH ×3 (05:15→22:14)
[2022-10-15] MEDS: CALCIUM CARBONATE 500 MG CHEW U/D PO PRN (05:18)
[2022-10-15] MEDS: PHENYTOIN ER 100 MG CAP PO SCH ×2 (08:59→22:14)
[2022-10-15] MEDS: ASPIRIN 81MG CHEW TABLET PO SCH (08:59)
[2022-10-15 11:45] VITALS: BP 136/79
[2022-10-15 19:55] VITALS: BP 154/92
[2022-10-16 04:08] VITALS: BP 141/80
[2022-10-16] MEDS: HEPARIN SOD (PORCINE) 5000UNITS/ML 1ML VIAL/SYRINGE SC SCH ×3 (06:07→21:39)
[2022-10-16] MEDS: ASPIRIN 81MG CHEW TABLET PO SCH (08:49)
[2022-10-16] MEDS: PHENYTOIN ER 100 MG CAP PO SCH ×2 (08:50→21:39)
[2022-10-16 16:09] VITALS: BP 151/72
[2022-10-17 04:21] VITALS: BP 138/74
[2022-10-17] MEDS: ONDANSETRON 4MG ORAL DISINTEGRATING TAB PO PRN (04:56)
[2022-10-17 05:10] VITALS: BP 146/97
[2022-10-17 05:20] VITALS: BP 153/83
[2022-10-17] MEDS: HEPARIN SOD (PORCINE) 5000UNITS/ML 1ML VIAL/SYRINGE SC SCH ×2 (05:22→14:00)
[2022-10-17 07:48] VITALS: BP 145/89
[2022-10-17 08:00] VITALS: BP 145/89
[2022-10-17] MEDS: PHENYTOIN ER 100 MG CAP PO SCH (08:09)
[2022-10-17] MEDS: CALCIUM CARBONATE 500 MG CHEW U/D PO PRN (08:09)
[2022-10-17] MEDS: ASPIRIN 81MG CHEW TABLET PO SCH (08:09)
== END 2022-10-17 14:57 | disposition home or self-care (01) | DRG 47 ==
LOC: M ED 14:20 → M ED INP 18:17 → ENRESERV 19:27 → M PCU 21:30 → M MSPAV 10-08 14:21 → M PCU 10-11 14:30
PROVIDERS: ADMIT Internal Medicine; ATTEND Family Medicine
DX: G45.9 Transient cerebral ischemic attack, unspecified (principal); I69.354 Hemiplegia and hemiparesis following cerebral infarction affecting left non-dominant side; I10 Essential (primary) hypertension; E11.9 Type 2 diabetes mellitus without complications; F45.0 Somatization disorder; R47.81 Slurred speech; Z79.899 Other long term (current) drug therapy; G40.909 Epilepsy, unspecified, not intractable, without status epilepticus; E78.5 Hyperlipidemia, unspecified; Z79.82 Long term (current) use of aspirin; Z91.018 Allergy to other foods; Z91.010 Allergy to peanuts

== ENCOUNTER 2022-11-08 04:00 | Emergency (ER) | payer OTHER ==
[~2022-11-08] VITALS: Ht 170.2 cm; Wt 76.2 kg
[~2022-11-08 04:00] MED LIST changes: -CHOL4POW35 PO; +CHOL4POW36 PO; +MED REC COMMENT; +PHEN100C PO; +STEG5TAB PO
[2022-11-08 08:20] LABS: BASO # 0.1 10^3/uL (0.0-0.2); BASO % 0.9 % (0.0-1.0); EOS # 0.4 10^3/uL (0.0-0.5); EOS % 5.5 % (0.0-3.0); HEMATOCRIT 29.3 % (42.0-52.0); HEMOGLOBIN 10.1 g/dl (13.5-17.5); LYMPH # 3.5 10^3/uL (1.5-5.0); MEAN CORPUSCULAR HEMOGLOBIN 28.9 pg (27.0-33.0); MEAN CORPUSCULAR HGB CONC 34.5 g/dl (32.0-36.5); MONO # 0.7 10^3/uL (0.0-0.8); MONO % 8.7 % (2.0-8.0); NEUTROPHILS # 3.3 10^3/uL (1.5-8.5); NEUTROPHILS % 41.7 % (36.0-66.0); PLATELET COUNT, AUTOMATED 179 10^3/uL (150-450); RED BLOOD COUNT 3.49 10^6/uL (4.30-6.10)
[2022-11-08 08:31] LABS: INR 0.98; PROTHROMBIN TIME 13.2 SECONDS (12.5-14.5)
[2022-11-08 08:32] LABS: PARTIAL THROMBOPLASTIN TIME 26.3 SECONDS (24.8-34.2)
[2022-11-08 08:44] LABS: LIPASE 37 U/L (12-53)
[2022-11-08 08:45] LABS: CK-MB VALUE MASS 1.5 NG/ML (<3.6)
[2022-11-08 08:46] LABS: BILIRUBIN,DIRECT < 0.1 MG/DL (<0.4)
[2022-11-08 08:47] LABS: ALBUMIN 3.3 G/DL (3.2-5.2); ALKALINE PHOSPHATASE 67 U/L (46-116); ALT/SGPT 29 U/L (7.0-40); AST/SGOT 21 U/L (<34); BILIRUBIN,TOTAL < 0.2 MG/DL (0.3-1.2); BLOOD UREA NITROGEN 16 MG/DL (9-23); CALCIUM LEVEL 8.2 MG/DL (8.5-10.1); CARBON DIOXIDE LEVEL 23 MMOL/L (20-31); CHLORIDE LEVEL 106 MMOL/L (98-107); CPK CREATINE PHOSPHOKINASE 171 U/L (46-171); CREATININE FOR GFR 0.88 MG/DL (0.70-1.30); GLOMERULAR FILTRATION RATE > 60.0 (>56); GLUCOSE, FASTING 172 MG/DL (60-100); MB/CK RELATIVE INDEX 0.87 (< OR =4); POTASSIUM SERUM 4.4 MMOL/L (3.5-5.1); SODIUM LEVEL 139 MMOL/L (136-145); TOTAL PROTEIN 6.7 G/DL (5.7-8.2)
[2022-11-08 08:48] LABS: THYROID STIMULATING HORMONE 0.941 uIU/ML (0.55-4.78)
[2022-11-08] MEDS ORDERED: PHENYTOIN INJection 1,000 MG in NS 100 ML IV ONE (08:50)
[2022-11-08 08:57] LABS: RSV AMPLIFICATION NEGATIVE (NEGATIVE)
[2022-11-08] MEDS ORDERED: PHENYTOIN INJ 250MG/5ML VIAL As Ordered ONE (09:19)
[2022-11-08 09:41] LABS: CK-MB VALUE MASS 1.5 NG/ML (<3.6); MB/CK RELATIVE INDEX 0.83 (< OR =4)
[2022-11-08] MEDS ORDERED: ISOVUE-370 76% 100ML VIAL As Ordered ONE (10:10)
[2022-11-08] MEDS ORDERED: GI COCKTAIL 50ML BTL(HYOSCYAMINE/MAALOX/LIDOCAINE VISCOUS)(1:3:1) PO ONE (11:45)
[2022-11-08] MEDS ORDERED: MECLIZINE 25 MG TABLET PO ONE (13:15)
[2022-11-08] MEDS ORDERED: OMEP-173 (13:28)
[2022-11-08 17:01] VITALS: BP 158/99
== END 2022-11-08 17:03 | disposition home or self-care (01) ==
LOC: M ED 04:00 → EDBD 04:00 → M ED 17:03
DX: R56.9 Unspecified convulsions (principal); R05.9 Cough, unspecified; K44.9 Diaphragmatic hernia without obstruction or gangrene; E11.9 Type 2 diabetes mellitus without complications; I10 Essential (primary) hypertension; E78.5 Hyperlipidemia, unspecified; Z86.73 Personal history of transient ischemic attack (TIA), and cerebral infarction without residual deficits; J30.2 Other seasonal allergic rhinitis; Z91.010 Allergy to peanuts; Z91.018 Allergy to other foods; Z79.82 Long term (current) use of aspirin; Z79.899 Other long term (current) drug therapy; Z79.84 Long term (current) use of oral hypoglycemic drugs
CPT/HCPCS: 71045; 71275; 74177; 80047; 80048; 80076; 80185; 82550; 82553; 83690; 83880; 84443; 85025; 85610; 85730; 87631; 93005; 93041; 94760; 96365; 99285; J1165

== ENCOUNTER 2023-02-24 19:24 | Emergency (ER) | payer OTHER ==
[~2023-02-24] VITALS: Ht 170.2 cm; Wt 80.0 kg
[~2023-02-24 19:24] MED LIST changes: +CROM4SOL4 OP; -CROM5SOL OP; +OMEP-173
[2023-02-24] MEDS ORDERED: NS 1,000 ML IV ONE (20:10)
[2023-02-24 20:39] LABS: BASO # 0.1 10^3/uL (0.0-0.2); BASO % 0.8 % (0.0-1.0); EOS # 0.3 10^3/uL (0.0-0.5); EOS % 4.2 % (0.0-3.0); HEMOGLOBIN 10.2 g/dl (13.5-17.5); LYMPH # 2.3 10^3/uL (1.5-5.0); LYMPH % 35.1 % (24.0-44.0); MEAN CORPUSCULAR HEMOGLOBIN 27.3 pg (27.0-33.0); MEAN CORPUSCULAR VOLUME 80.4 fl (80.0-96.0); MONO # 0.5 10^3/uL (0.0-0.8); MONO % 8.4 % (2.0-8.0); NEUTROPHILS # 3.3 10^3/uL (1.5-8.5); NEUTROPHILS % 51.3 % (36.0-66.0); PLATELET COUNT, AUTOMATED 216 10^3/uL (150-450); RED BLOOD COUNT 3.73 10^6/uL (4.30-6.10); WHITE BLOOD COUNT 6.5 10^3/uL (4.0-10.0)
[2023-02-24 20:50] LABS: INR 0.89; PROTHROMBIN TIME 12.2 SECONDS (12.5-14.5)
[2023-02-24] MEDS ORDERED: ONDANSETRON 4MG 2ML VIAL IV ONE (20:50)
[2023-02-24] MEDS ORDERED: MORPHINE 4 MG/ML 1ML VIAL IV ONE (20:50)
[2023-02-24 20:51] LABS: PARTIAL THROMBOPLASTIN TIME 20.1 SECONDS (24.8-34.2)
[2023-02-24 21:12] LABS: LIPASE 33 U/L (12-53)
[2023-02-24 21:14] LABS: ALBUMIN 3.1 G/DL (3.2-5.2); ALKALINE PHOSPHATASE 49 U/L (46-116); ALT/SGPT 14 U/L (7.0-40); AST/SGOT < 8 U/L (<34); BILIRUBIN,TOTAL < 0.2 MG/DL (0.3-1.2); BLOOD UREA NITROGEN 10 MG/DL (9-23); CALCIUM LEVEL 8.1 MG/DL (8.5-10.1); CARBON DIOXIDE LEVEL 28 MMOL/L (20-31); CHLORIDE LEVEL 106 MMOL/L (98-107); CREATININE FOR GFR 0.88 MG/DL (0.70-1.30); GLOMERULAR FILTRATION RATE > 60.0 (>56); GLUCOSE, FASTING 285 MG/DL (60-100); POTASSIUM SERUM 4.3 MMOL/L (3.5-5.1); RSV AMPLIFICATION NEGATIVE (NEGATIVE); SODIUM LEVEL 139 MMOL/L (136-145); TOTAL PROTEIN 6.5 G/DL (5.7-8.2)
[2023-02-24 21:23] LABS: CPK CREATINE PHOSPHOKINASE 223 U/L (46-171); MB/CK RELATIVE INDEX 0.89 (< OR =4)
[2023-02-24 21:38] LABS: C REACTIVE PROTEIN QUANTITATIV < 0.40 MG/DL (<1.0)
[2023-02-25] VITALS: BP 169/89
[2023-02-25] MEDS ORDERED: METOCLOPRAMIDE INJ 10MG/2ML VIAL IV ONE (00:35)
== END 2023-02-25 01:50 | disposition home or self-care (01) ==
LOC: M ED 19:24
DX: K31.84 Gastroparesis (principal); R53.1 Weakness; E11.65 Type 2 diabetes mellitus with hyperglycemia; R00.0 Tachycardia, unspecified; E78.5 Hyperlipidemia, unspecified; K21.9 Gastro-esophageal reflux disease without esophagitis; I10 Essential (primary) hypertension; G40.909 Epilepsy, unspecified, not intractable, without status epilepticus; Z91.010 Allergy to peanuts; Z91.018 Allergy to other foods; Z79.82 Long term (current) use of aspirin; Z79.02 Long term (current) use of antithrombotics/antiplatelets; Z79.811 Long term (current) use of aromatase inhibitors; Z79.4 Long term (current) use of insulin
CPT/HCPCS: 71045; 74176; 80053; 82550; 82553; 83605; 83690; 85025; 85610; 85730; 86140; 87631; 93005; 96374; 96375; 99284; J2405; J2765

== ENCOUNTER → 2023-03-18 | Outpatient (REF) | payer OTHER ==
[2023-03-18 17:25] LABS: ALBUMIN 3.3 G/DL (3.2-5.2); ALKALINE PHOSPHATASE 70 U/L (46-116); ALT/SGPT 13 U/L (7.0-40); AST/SGOT 18 U/L (<34); BILIRUBIN,TOTAL < 0.2 MG/DL (0.3-1.2); BLOOD UREA NITROGEN 13 MG/DL (9-23); CALCIUM LEVEL 8.8 MG/DL (8.5-10.1); CARBON DIOXIDE LEVEL 26 MMOL/L (20-31); CHLORIDE LEVEL 106 MMOL/L (98-107); CHOLESTEROL LEVEL 110 MG/DL (<200); CHOLESTEROL RISK RATIO 2.93 (<5); CREATININE FOR GFR 1.17 MG/DL (0.70-1.30); GLOMERULAR FILTRATION RATE > 60.0 (>56); GLUCOSE, FASTING 173 MG/DL (60-100); HDL CHOLESTEROL 37.5 MG/DL (>40); LDL CHOLESTEROL 34.3 MG/DL (<100); NON-HDL-C 72.5 MG/DL; SODIUM LEVEL 140 MMOL/L (136-145); TOTAL PROTEIN 6.7 G/DL (5.7-8.2); TRIGLYCERIDES LEVEL 191 MG/DL (<150)
[2023-03-18 17:55] LABS: HEMOGLOBIN A1c 8.6 % (4.0-6.0)
== END ==
LOC: M LAB REF 16:33
PROVIDERS: ATTEND Family Medicine Addiction Medicine
DX: Z79.4 Long term (current) use of insulin (principal)

== ENCOUNTER 2023-05-01 22:05 | Emergency (ER) | payer OTHER ==
[~2023-05-01] VITALS: Ht 170.2 cm; Wt 77.4 kg
[~2023-05-01 22:05] MED LIST changes: -POTA10CA33 PO; +POTA10CA60 PO
[2023-05-01 22:30] VITALS: TEMP 97.5
[2023-05-01] MEDS ORDERED: PHENYTOIN ER 100 MG CAP PO ONE (23:00)
[2023-05-01] MEDS ORDERED: METOPROLOL TART 25 MG TABLET PO ONE (23:00)
[2023-05-01 23:43] LABS: BASO # 0.1 10^3/uL (0.0-0.2); BASO % 0.8 % (0.0-1.0); EOS # 0.3 10^3/uL (0.0-0.5); EOS % 4.7 % (0.0-3.0); HEMATOCRIT 32.6 % (42.0-52.0); HEMOGLOBIN 11.1 g/dl (13.5-17.5); LYMPH # 2.3 10^3/uL (1.5-5.0); LYMPH % 31.7 % (24.0-44.0); MEAN CORPUSCULAR HEMOGLOBIN 27.7 pg (27.0-33.0); MEAN CORPUSCULAR VOLUME 81.3 fl (80.0-96.0); MONO # 0.7 10^3/uL (0.0-0.8); NEUTROPHILS # 3.9 10^3/uL (1.5-8.5); NEUTROPHILS % 53.7 % (36.0-66.0); PLATELET COUNT, AUTOMATED 194 10^3/uL (150-450); RED BLOOD COUNT 4.01 10^6/uL (4.30-6.10); WHITE BLOOD COUNT 7.3 10^3/uL (4.0-10.0)
[2023-05-02 00:27] LABS: BLOOD UREA NITROGEN 18 MG/DL (9-23); CALCIUM LEVEL 8.7 MG/DL (8.5-10.1); CARBON DIOXIDE LEVEL 28 MMOL/L (20-31); CHLORIDE LEVEL 103 MMOL/L (98-107); CREATININE FOR GFR 0.97 MG/DL (0.70-1.30); GLOMERULAR FILTRATION RATE > 60.0 (>56); GLUCOSE, FASTING 264 MG/DL (60-100); POTASSIUM SERUM 3.9 MMOL/L (3.5-5.1); SODIUM LEVEL 137 MMOL/L (136-145)
[2023-05-02 01:45] VITALS: BP 159/98
[2023-05-02 01:46] VITALS: O2SAT 100
== END 2023-05-02 02:00 | disposition home or self-care (01) ==
LOC: EDBD 22:05 → M ED 22:05
DX: R56.9 Unspecified convulsions (principal); Z91.148 Patient's other noncompliance with medication regimen for other reason; I48.91 Unspecified atrial fibrillation; I25.2 Old myocardial infarction; E11.9 Type 2 diabetes mellitus without complications; I10 Essential (primary) hypertension; J45.909 Unspecified asthma, uncomplicated; E78.5 Hyperlipidemia, unspecified; K21.9 Gastro-esophageal reflux disease without esophagitis; F41.9 Anxiety disorder, unspecified; Z91.010 Allergy to peanuts; Z91.018 Allergy to other foods; Z79.82 Long term (current) use of aspirin; Z79.84 Long term (current) use of oral hypoglycemic drugs; Z79.899 Other long term (current) drug therapy

== ENCOUNTER 2023-05-28 21:08 | Emergency (ER) | payer OTHER ==
[~2023-05-28] VITALS: Ht 170.2 cm; Wt 77.4 kg
[2023-05-28 21:48] VITALS: BP 175/100
[2023-05-28] MEDS ORDERED: hydrALAZINE 20MG/ML 1ML VIAL IV STA (21:48)
[2023-05-28] MEDS ORDERED: ASPIRIN 81MG CHEW TABLET PO ONE (21:50)
[2023-05-28 22:12] LABS: VENOUS BASE EXCESS 2.6 (-2.0-2.0); VENOUS O2 SATURATION 81.9 % (60.0-80.0); VENOUS PARTIAL PRESSURE CO2 46.5 mmHg (38.0-50.0); VENOUS PARTIAL PRESSURE O2 47.7 mmHg (30.0-50.0); VENOUS PH 7.398 UNITS (7.330-7.430); VENOUS STANDARD HCO3 26.5 MMOL/L; VENOUS TOTAL CO2 29.5 MMOL/L (24.0-28.0)
[2023-05-28 22:25] LABS: BASO # 0.1 10^3/uL (0.0-0.2); BASO % 0.6 % (0.0-1.0); EOS # 0.3 10^3/uL (0.0-0.5); EOS % 3.8 % (0.0-3.0); HEMATOCRIT 33.6 % (42.0-52.0); HEMOGLOBIN 11.4 g/dl (13.5-17.5); LYMPH # 2.4 10^3/uL (1.5-5.0); LYMPH % 28.8 % (24.0-44.0); MEAN CORPUSCULAR HEMOGLOBIN 27.9 pg (27.0-33.0); MEAN CORPUSCULAR HGB CONC 33.9 g/dl (32.0-36.5); MEAN CORPUSCULAR VOLUME 82.4 fl (80.0-96.0); MONO # 0.7 10^3/uL (0.0-0.8); MONO % 8.5 % (2.0-8.0); NEUTROPHILS # 4.8 10^3/uL (1.5-8.5); NEUTROPHILS % 58.2 % (36.0-66.0); PLATELET COUNT, AUTOMATED 234 10^3/uL (150-450); RED BLOOD COUNT 4.08 10^6/uL (4.30-6.10); WHITE BLOOD COUNT 8.2 10^3/uL (4.0-10.0)
[2023-05-28 22:35] LABS: INR 1.03; PROTHROMBIN TIME 13.7 SECONDS (12.5-14.5)
[2023-05-28 22:36] LABS: PARTIAL THROMBOPLASTIN TIME 27.2 SECONDS (24.8-34.2)
[2023-05-28 22:49] LABS: LIPASE 29 U/L (12-53)
[2023-05-28 22:52] LABS: CPK CREATINE PHOSPHOKINASE 167 U/L (46-171)
[2023-05-28 22:59] LABS: ALBUMIN 3.1 G/DL (3.2-5.2); ALKALINE PHOSPHATASE 44 U/L (46-116); ALT/SGPT 11 U/L (7.0-40); AST/SGOT 9 U/L (<34); BILIRUBIN,DIRECT 0.1 MG/DL (<0.4); BILIRUBIN,TOTAL 0.3 MG/DL (0.3-1.2); BLOOD UREA NITROGEN 14 MG/DL (9-23); CALCIUM LEVEL 9.3 MG/DL (8.5-10.1); CARBON DIOXIDE LEVEL 30 MMOL/L (20-31); CHLORIDE LEVEL 100 MMOL/L (98-107); CK-MB VALUE MASS 1.3 NG/ML (<3.6); CREATININE FOR GFR 1.05 MG/DL (0.70-1.30); GLOMERULAR FILTRATION RATE > 60.0 (>56); GLUCOSE, FASTING 186 MG/DL (60-100); MB/CK RELATIVE INDEX 0.77 (< OR =4); SODIUM LEVEL 140 MMOL/L (136-145); THYROID STIMULATING HORMONE 0.782 uIU/ML (0.55-4.78); TOTAL PROTEIN 7.5 G/DL (5.7-8.2)
[2023-05-28 23:43] LABS: CK-MB VALUE MASS 1.2 NG/ML (<3.6)
[2023-05-28 23:49] LABS: MB/CK RELATIVE INDEX 0.75 (< OR =4)
[2023-05-29] MEDS ORDERED: ONDANSETRON 4MG 2ML VIAL IV ONE (03:15)
[2023-05-29 03:16] VITALS: BP 153/95; TEMP 98.4; O2SAT 98
[2023-05-29] MEDS ORDERED: ONDA4TAB6 PO (03:25)
== END 2023-05-29 03:59 | disposition home or self-care (01) ==
LOC: M ED 21:08
DX: R07.9 Chest pain, unspecified (principal); A08.4 Viral intestinal infection, unspecified; G40.909 Epilepsy, unspecified, not intractable, without status epilepticus; K21.9 Gastro-esophageal reflux disease without esophagitis; E11.9 Type 2 diabetes mellitus without complications; I10 Essential (primary) hypertension; E78.5 Hyperlipidemia, unspecified; F17.200 Nicotine dependence, unspecified, uncomplicated; Z86.79 Personal history of other diseases of the circulatory system; Z91.010 Allergy to peanuts; Z91.048 Other nonmedicinal substance allergy status; Z79.82 Long term (current) use of aspirin; Z79.811 Long term (current) use of aromatase inhibitors; Z79.4 Long term (current) use of insulin; Z79.899 Other long term (current) drug therapy
CPT/HCPCS: 71045; 80048; 80076; 80185; 82550; 82553; 82803; 83690; 83880; 84443; 85025; 85610; 85730; 87040; 93005; 93041; 94760; 96374; 96375; 99285; J0360; J2405

== ENCOUNTER 2023-06-29 21:17 | Emergency (ER) | payer OTHER ==
[~2023-06-29 21:17] MED LIST changes: -GABA-283 PO; +GABA-284 PO
[2023-06-30] MEDS ORDERED: NS 1,000 ML IV ONE ×2 (00:20→02:15)
[2023-06-30 00:52] LABS: BASO # 0.1 10^3/uL (0.0-0.2); BASO % 0.3 % (0.0-1.0); EOS % 0.1 % (0.0-3.0); HEMATOCRIT 26.6 % (42.0-52.0); HEMOGLOBIN 8.8 g/dl (13.5-17.5); LYMPH # 1.5 10^3/uL (1.5-5.0); LYMPH % 4.4 % (24.0-44.0); MEAN CORPUSCULAR HEMOGLOBIN 27.1 pg (27.0-33.0); MEAN CORPUSCULAR HGB CONC 33.1 g/dl (32.0-36.5); MEAN CORPUSCULAR VOLUME 81.8 fl (80.0-96.0); MONO % 3.1 % (2.0-8.0); NEUTROPHILS # 30.1 10^3/uL (1.5-8.5); NEUTROPHILS % 88.4 % (36.0-66.0); PLATELET COUNT, AUTOMATED 290 10^3/uL (150-450); RED BLOOD COUNT 3.25 10^6/uL (4.30-6.10)
[2023-06-30 01:03] LABS: WHITE BLOOD COUNT 34.1 10^3/uL (4.0-10.0)
[2023-06-30 01:11] LABS: ALBUMIN 1.5 G/DL (3.2-5.2); BILIRUBIN,TOTAL 0.8 MG/DL (0.3-1.2); CALCIUM LEVEL 8.1 MG/DL (8.5-10.1); CREATININE FOR GFR 2.63 MG/DL (0.70-1.30); GLOMERULAR FILTRATION RATE 26.9 (>56); TOTAL PROTEIN 7.2 G/DL (5.7-8.2)
[2023-06-30] MEDS ORDERED: VANCOMYCIN HCL 1,500 MG in IV FLUID PLACE HOLDER 1 EA IV STA (02:40)
[2023-06-30] MEDS ORDERED: PIPERACILLIN/TAZOBACTAM SOD 3.375 GM in D5W MINI-BAG PLUS 50 ML IV ONE (02:40)
[2023-06-30 02:41] LABS: HEMATOCRIT 24.1 % (42.0-52.0); HEMOGLOBIN 7.9 g/dl (13.5-17.5); MEAN CORPUSCULAR HEMOGLOBIN 27.5 pg (27.0-33.0); MEAN CORPUSCULAR HGB CONC 32.8 g/dl (32.0-36.5); PLATELET COUNT, AUTOMATED 270 10^3/uL (150-450); RED BLOOD COUNT 2.87 10^6/uL (4.30-6.10)
[2023-06-30] MEDS ORDERED: UNRESOLVED CLARIFICATION ENTRY XX STA (02:47)
[2023-06-30 02:49] LABS: WHITE BLOOD COUNT 34.4 10^3/uL (4.0-10.0)
[2023-06-30 03:02] LABS: CALCIUM LEVEL 7.3 MG/DL (8.5-10.1); CREATININE FOR GFR 2.56 MG/DL (0.70-1.30); GLOMERULAR FILTRATION RATE 27.7 (>56)
[2023-06-30] MEDS ORDERED: VANCOMYCIN HCL 750 MG, VIAL MATE ADAPTER 1 EACH in D5W 250 ML IV ONE ×6 (03:15)
[2023-06-30 03:23] LABS: HYPOCHROMASIA 1+; LYMPHOCYTES 3 % (16-44); MONOCYTES 4 % (0-5); NEUTROPHILS 91 % (28-66); PLATELET ESTIMATE NORMAL (NORMAL); POLYCHROMASIA 1+
[2023-06-30 03:24] LABS: OVALOCYTES 1+; POIKILOCYTOSIS 1+
[2023-06-30 03:45] VITALS: BP 149/71
[2023-06-30 03:47] VITALS: TEMP 98.9
[2023-06-30 04:02] VITALS: O2SAT 99
[2023-06-30 04:52] LABS: RSV AMPLIFICATION NEGATIVE (NEGATIVE)
== END 2023-06-30 05:03 | disposition short-term general hospital (02) ==
LOC: M ED 21:17 → EDBD 21:17 → M ED 06-30 05:03
DX: A41.9 Sepsis, unspecified organism (principal); G95.20 Unspecified cord compression; N17.9 Acute kidney failure, unspecified; M25.78 Osteophyte, vertebrae; M54.2 Cervicalgia; K21.9 Gastro-esophageal reflux disease without esophagitis; E78.5 Hyperlipidemia, unspecified; I10 Essential (primary) hypertension; E11.9 Type 2 diabetes mellitus without complications; Z79.84 Long term (current) use of oral hypoglycemic drugs; Z91.010 Allergy to peanuts; Z91.048 Other nonmedicinal substance allergy status; Z79.82 Long term (current) use of aspirin; Z79.811 Long term (current) use of aromatase inhibitors; Z79.899 Other long term (current) drug therapy
CPT/HCPCS: 36415; 70450; 71045; 72125; 73521; 80048; 80053; 82550; 83605; 85025; 87040; 87077; 87186; 87631; 96365; 96366; 99285; J2543